=== PATIENT | female | born 1960 | race Caucasian/White ===

== ENCOUNTER 2017-07-10 06:22 | Day surgery (SDC) | payer MEDICARE, OTHER, SELFPAY ==
[2017-07-05 13:59] VITALS: BMI 45.5
--- NOTE | 2017-07-10 08:09 | P.PCN_ITS ---
- Procedure: Date: 07/10/17 Patient Date of :: 1960 Procedure Performed:: Colonoscopy with cold snare polypectomy Equipment: Olympus 180 variable stiffness pediatric colonoscope Indications:: Mrs. Painter is a 57-year-old female who is here for follow-up screening/ surveillance colonoscopy. Her last colonoscopy in June 2015 revealed 5 polyps which were removed. She reports no abdominal pain, weight loss, change in her bowel habits or rectal bleeding. She reports no family history of colon cancer. Performing Provider:: Jamie Kelly II, MD Referring Provider:: Ricky Jones MD Sedation:: MAC sedation Procedure:: Colonoscopy with cold snare polypectomy Findings:: Findings: On digital rectal examination there was normal rectal tone. There were no external hemorrhoids. The colonoscope was introduced through the anal canal to the rectum and advanced to the cecum. The ileocecal valve and appendiceal orifice were identified. The scope was advanced a short distance into the ileum which appeared grossly normal. The scope was then withdrawn into the colon. The cecum, ascending and transverse colon and mucosa were grossly normal. There were 3 diminutive polyps in the transverse ?2 and descending ?1 that ranged in size from 4-6 mm and were removed via cold snare polypectomy. There were scattered diverticuli throughout the descending and sigmoid colon ( LEFT colon). The rectum itself was normal. Upon retroflexion within the rectum there were grade 1 internal hemorrhoids. Impression: 1. Diminutive colonic polyps ?3 2. Left-sided diverticulosis 3. Grade 1 internal hemorrhoids Recommendations:: Plan: I will follow up the polyp pathology and recommend repeat colonoscopy again in 5 -10 years based upon the polyp histology. I would encourage fiber supplementation on a long-term daily maintenance basis. Complications:: None Estimated blood obtained (mL): 0
[2017-07-10 08:38] VITALS: O2SAT 95
[2017-07-10 08:50] LABS: POC Glucose,Bedside 411 mg/dL
[2017-07-10 08:50] LABS: POC Glucose,Bedside 400 mg/dL
[2017-07-10 08:50] LABS: POC Glucose,Bedside 402 mg/dL
[2017-07-10 09:00] VITALS: BP 114/74; PULSE 92; RESP 20; TEMP 36.6; O2SAT 94
[2017-07-10 09:10] VITALS: BP 119/59; PULSE 96; RESP 20; TEMP 36.6; O2SAT 93
[2017-07-10 09:20] VITALS: BP 135/73; PULSE 94; RESP 20; TEMP 36.6; O2SAT 92
[2017-07-10 09:30] VITALS: BP 144/84; PULSE 97; RESP 20; TEMP 36.6; O2SAT 96
[2017-07-10 09:55] VITALS: BP 151/85; PULSE 94; RESP 20; TEMP 36.6; O2SAT 94
== END 2017-07-10 09:55 | disposition home or self-care (01) ==
LOC: OUTP 06:25
PROVIDERS: Family Provider Family Medicine; PCP Family Medicine; Visit Provider Internal Medicine Gastroenterology
PROC: 0DJD8ZZ Inspection of Lower Intestinal Tract, Via Natural or Artificial Opening Endoscopic (ICD-10-PCS; CPT 45378; principal; 2017-07-10 08:00)
DX: Z12.11 Encounter for screening for malignant neoplasm of colon (principal); K63.5 Polyp of colon; K57.30 Diverticulosis of large intestine without perforation or abscess without bleeding; K64.0 First degree hemorrhoids; Z86.010 Personal history of colon polyps; E11.9 Type 2 diabetes mellitus without complications; Z79.4 Long term (current) use of insulin
CPT/HCPCS: 45380; 82962; 88305

== ENCOUNTER → 2017-07-14 14:50 | Outpatient (CLI) | payer MEDICARE, OTHER, SELFPAY | PROVIDERS: PCP Family Medicine; Visit Provider Family Medicine | DX: R00.0 Tachycardia, unspecified (principal) | CPT/HCPCS: 93005 ==

== ENCOUNTER → 2018-03-29 11:03 | Outpatient (CLI) | payer MEDICARE, OTHER, SELFPAY ==
--- NOTE | 2018-03-29 11:10 | XR_ITS ---
XR knee RT 3V HISTORY: ITS.REASON: ACUTE RT KNEE PAIN ORDERING PHYSICIAN: Ricky Jones MD PATIENT AGE: 58 years COMPARISON: None FINDINGS: There are mild osteoarthritic changes of the lateral compartment and patellofemoral joint and moderate osteoarthritic changes of the medial compartment. No fracture or dislocation evident. There is decrease in the joint space medially with osteophyte formation along with osteophyte formation laterally and at the patellofemoral joint. No fracture or dislocation. No lytic or blastic change. There is increased soft tissue density in the suprapatellar region suggesting knee joint effusion. IMPRESSION: Moderate osteoarthritis of the right knee with knee joint effusion
== END ==
PROVIDERS: PCP Family Medicine; Visit Provider Family Medicine
DX: M25.561 Pain in right knee (principal)
CPT/HCPCS: 73562

== ENCOUNTER → 2018-06-04 12:02 | Outpatient (CLI) | payer MEDICARE, OTHER, SELFPAY ==
--- NOTE | 2018-06-04 12:07 | XR_ITS ---
XR knee LT 3V HISTORY: ITS.REASON: LEFT KNEE PAIN ORDERING PHYSICIAN: Ricky Jones MD PATIENT AGE: 58 years COMPARISON: None FINDINGS: There are mild tricompartmental osteoarthritic changes with minimal osteophytes at the medial, lateral joint, and patellofemoral joint. No fracture or dislocation. There is some increased soft tissue density in the suprapatellar region suggesting a joint effusion. IMPRESSION: Mild osteoarthritis with knee joint effusion
== END ==
PROVIDERS: PCP Family Medicine; Visit Provider Family Medicine
DX: M25.562 Pain in left knee (principal)
CPT/HCPCS: 73562

== ENCOUNTER 2018-10-09 10:26 | Inpatient (IN) ==
[2018-10-09 11:04] LABS: Basophils # 0.1 K/mm3 (0-0.2); Basophils % 0.4 % (0.1-2.0); Hematocrit 55.8 % (37.0-47.0); Hemoglobin 17.3 g/dL (12.2-16.2); Lymphocytes # 1.2 K/mm3 (0.7-4.5); Lymphocytes % 6.7 % (10-50); Mean Corpuscular Hemoglobin 29.6 pg (27.0-31.2); Mean Corpuscular Volume 95.6 fl (81-99); Mean Platelet Volume 9.3 fl (7.4-10.4); Monocytes # 0.9 K/mm3 (0.1-1.0); Neutrophils # 16.2 K/mm3 (1.8-7.8); Neutrophils % 87.8 % (37.0-80.0); Platelet Count 326 K/mm3 (142-424); Red Blood Count 5.84 M/mm3 (4.20-5.40); Red Cell Distribution Width 14.2 % (11.5-17.5); White Blood Count 18.5 K/mm3 (4.8-10.8)
--- NOTE | 2018-10-09 11:08 | Emergency Department Note ---
ED Disposition Clinical Impression: DKA (diabetic ketoacidoses) Qualifiers: Diabetes mellitus type: other specified (including VALORIE) Diabetes mellitus complication detail: without coma Qualified Code(s): E13.10 - Other specified diabetes mellitus with ketoacidosis without coma Diarrhea Qualifiers: Diarrhea type: unspecified type Qualified Code(s): R19.7 - Diarrhea, unspecified Vomiting Qualifiers: Vomiting type: unspecified Vomiting Intractability: unspecified Nausea presence: with nausea Qualified Code(s): R11.2 - Nausea with vomiting, unspecified Disposition: Admitted As Inpatient Condition on Discharge: Serious Referrals: Ricky Jones MD [Primary Care Provider] - - Critical Care Critical Care Time: Yes Attestation: On 10/09/18, the high probability of a clinically significant, sudden or life threatening deterioration of the following system(s) required my full and direct attention, intervention and personal management. The time I documented below is in addition to time spent performing reported procedures but includes the following listed in this critical care notation. Total Critical Care Time: 40 Vital system(s) involved:: Metabolic Failure My critical care processes included: Assessment & monitoring of V/S, Initial and Re-exams, Data Review/Interpretation, Coordinating Care, Medication Orders and management, Documentation Medical Decision Making - Gunner Inquiry Pt receiving controlled substance: No Vital Signs: 10/09/18 10:26 10/09/18 11:29 10/09/18 11:43 Temperature 98.0 F Temperature Source Rectal Pulse Rate [Right Radial] 124 H 126 H 122 H Respiratory Rate 30 H 30 H Blood Pressure [Right Arm] 150/68 H 155/53 H 155/53 H Blood Pressure Mean [Right Arm] 95 87 87 Blood Pressure Source [Right Arm] Automatic Cuff Automatic Cuff Automatic Cuff Blood Pressure Position [Right Arm] Supine Sitting Sitting 02 Sat by Pulse Oximetry 99 99 97 Oxygen Delivery Method Room Air Room Air Room Air 10/09/18 12:01 Temperature Temperature Source Pulse Rate [Right Radial] 124 H Respiratory Rate Blood Pressure [Right Arm] 151/64 H Blood Pressure Mean [Right Arm] 93 Blood Pressure Source [Right Arm] Automatic Cuff Blood Pressure Position [Right Arm] Sitting 02 Sat by Pulse Oximetry 98 Oxygen Delivery Method Room Air - Lab Data Lab Results 10/09/18 10:45: WBC 18.5 H, RBC 5.84 H, Hgb 17.3 H, Hct 55.8 H, MCV 95.6, MCH 29.6, MCHC 31.0 L, RDW 14.2, Plt Count 326, MPV 9.3, Neut % (Auto) 87.8 H, Lymph % (Auto) 6.7 L, [place] % (Auto) 5.0, Eos % (Auto) 0.0 L, Baso % (Auto) 0.4, Neut # (Auto) 16.2 H, Lymph # (Auto) 1.2, [place]clain # (Auto) 0.9, Eos # (Auto) 0.0, Baso # (Auto) 0.1, Total Counted 100, Neutrophils % (Manual) 85 H, Band Neutrophils % 3.0, Lymphocytes % (Manual) 8 L, Monocytes % (Manual) 4, Platelet Estimate Normal, Hypochromasia 1+ 10/09/18 10:45: Sodium 128 L, Potassium 5.0, Chloride 93 L, Carbon Dioxide 4 L*, Anion Gap 36.0 H, BUN 29 H, Creatinine 1.73 H, Estimated Creat Clear 33, Estimated GFR 30 L, Est GFR ( Amer) 36 L, Glucose 716 H*, Calcium 9.2, Total Bilirubin 0.5, AST 18, ALT 25, Alkaline Phosphatase 137 H, Total Protein 8.4 H, Albumin 3.0 L, Globulin 5.4 H, Albumin/Globulin Ratio 0.6 L, Acetone Level Large 10/09/18 10:45: Troponin I < 0.02 10/09/18 10:45: Phosphorus 5.4 H, Magnesium 2.1 10/09/18 10:56: Specimen Source L radial, O2 % Room air, ABG pH 6.92 L*, ABG pCO2 14.3 L, ABG pO2 126.1 H, ABG HCO3 2.9 L, ABG Total CO2 3.3 L, ABG O2 Saturation 98, ABG Base Excess -29.7 L, Shayne Test Acceptable 10/09/18 11:28: Urine Color Yellow, Urine Appearance Clear, Urine pH 5.5, Ur Specific [place] 1.025, Urine Protein 2+, Urine Glucose (UA) 3+, Urine Ketones 3+, Urine Blood 2+, Urine Nitrate Negative, Urine Bilirubin Negative, Urine Urobilinogen 0.2, Ur Leukocyte Esterase Negative, Urine RBC 3-5, Urine WBC Occasional, Ur Squamous Epith Cells Occasional, Urine Bacteria 2+, Fine Granular Casts Occasional Result diagrams: 10/09/18 10:45 10/09/18 10:45 Orders (Tests/Meds): ED MEDICATIONS Generic Name Dose Route Start Last Admin Trade Name Freq PRN Reason Stop Dose Admin Sodium Chloride 1,000 mls @ 999 mls/hr 10/09/18 11:45 10/09/18 11:32 Sod Chlor 0.9% 1000ml Bag IV 10/09/18 12:45 999 mls/hr .Q1H1M JEFFERSON Administration Sodium Chloride 1,000 mls @ 999 mls/hr 10/09/18 11:45 10/09/18 11:46 Sod Chlor 0.9% 1000ml Bag IV 10/09/18 12:45 999 mls/hr .Q1H1M JEFFERSON Administration Insulin Human Regular 100 unit 101 mls @ 11.91 mls/hr 10/09/18 12:00 10/09/18 12:05 / Sodium Chloride IV 11/08/18 11:59 11.91 mls/hr .Q8H29M JEFFERSON Administration Protocol 0.1 UNITS/KG/HR Sodium Chloride 10 ml 10/09/18 10:34 Saline Flush 10ml Syringe IV 11/08/18 10:33 NEEDED PRN Maintain IV Site ORDERS Category Date Time Status XR chest portable Stat Exams 10/09/18 11:18 Taken Lactic Acid Stat Lab 10/09/18 11:09 Ordered Blood Culture Stat Micro 10/09/18 11:09 Ordered Urine Culture Stat Micro 10/09/18 11:28 Received - Radiology Data #1 Image(s): Chest Image Reviewed: Yes I reviewed the patient's radiology image Preliminary Findings: Normal/NAD - CT Data CT Scan: Head Time Received: 11:[address] Reviewed: Yes: I discussed the CT results w/the radiologist Preliminary Findings: Normal/NAD Findings Narrative: CT scan interpreted by [facility] radiologist. Normal. - ECG Data Tracing #1 EKG interpreted by Mitesh Salgado MD: Rhythm: sinus tachycardia Rate: [address] [place]: Left Ectopy: none Conduction: normal ST Segment Changes: Nonspecific T Wave Changes: Nonspecific Q Waves: none Poor R wave progression - Physician Consults Physician Consulted: Robert Time: 12:10 Reason -: Admission Comment/Response: Agrees to admit the patient to the hospital. We discussed the patient's clinical information, including history, exam, laboratory and radiology results and ED course. Per hospital procedure, I will write temporary bridge inpatient orders on the patient. Specific orders requested by the admitting physician: DKA protocol. Requests Flagyl empirically for diarrhea. Diarrhea panel. General Adult HPI - General Stated complaint: weakness, high sugar Time Seen by Provider: 10/09/18 11:05 - History of Present Illness HPI narrative: History obtained from patient and . She has been sick since Monday 3 days ago. She has generalized weakness which has been increasing to the point where she could not walk today and fell a couple of times. Slight diarrhea. Vomited today. No fever documented, is unaware of any fever. Denies u rinary symptoms. Denies URI symptoms. states she has had DKA a couple of times in the past. Recent antibiotics for incision and drainage of chest. - Related Data Home Medications Medication Instructions Recorded Confirmed Anastrozole [Arimidex] 1 mg PO DAILY 07/05/17 09/18/18 Ascorbic Acid [Vitamin C] 1,000 mg PO DAILY 07/05/17 09/18/18 Aspirin [Aspirin 325mg Tab] 325 mg PO DAILY 07/05/17 09/18/18 Atorvastatin Calcium [Atorvastatin 20 mg PO DAILY 07/05/17 09/18/18 20mg Tab] Calcium Carb/Vitamin D3/Vit K1 1 each PO DAILY 07/05/17 09/18/18 [Calcium + D Soft Chewable Tab] Duloxetine HCl [Cymbalta 30mg 90 mg PO DAILY 07/05/17 09/18/18 capsule] Fenofibric Acid [Fibricor] 135 mg PO DAILY 07/05/17 09/18/18 Fluoxetine HCl [Sarafem] 20 mg PO DAILY 07/05/17 09/18/18 Gabapentin [Gabapentin 300mg Cap] 300 mg PO TID 07/05/17 09/18/18 Insulin Aspart [Novolog Flexpen] 50 unit SQ DIRECTED MDD 50U 07/05/17 09/18/18 AM/40 U LUNCH/50 U DINNER Insulin Glargine,Hum.rec.anlog 100 unit SQ BID 07/05/17 09/18/18 [Lantus Insulin 100units/mL 10mL vial] L.acidoph,Paracasei, B.lactis 1 each PO DAILY 07/05/17 09/18/18 [Probiotic] Lisinopril [Lisinopril 20mg Tab] 20 mg PO DAILY 07/05/17 09/18/18 Meloxicam [Mobic 7.5mg Tab] 7.5 mg PO DAILY 07/05/17 09/18/18 Metformin HCl [Metformin 500mg 1,000 mg PO BID 07/05/17 09/18/18 Tablet] Metoprolol Succinate [Toprol XL 50 mg PO DAILY 07/05/17 09/18/18 50mg Tablet] Multivitamin [Multivitamins] 1 each PO DAILY 07/05/17 09/18/18 Vitamin B Complex 1 each PO DAILY 07/05/17 09/18/18 Fluticasone Propionate [Flonase 2 spr NS DAILY 08/20/18 09/18/18 50mcg nasal spray 16gm] Sitagliptin Phosphate [Januvia 50 mg PO DAILY 08/20/18 09/18/18 50mg Tablet] Sulfamethoxazole/Trimethoprim 1 each PO BID 08/20/18 09/18/18 [Bactrim DS tablet] Previous Rx's Medication Instructions Recorded Benzonatate [Tessalon Perle 100mg 100 mg PO TID PRN #30 cap 06/20/18 Cap] Ondansetron [Zofran 4mg ODT] 4 mg PO NEEDED PRN #20 06/20/18 tab.rapdis Allergies Allergy/AdvReac Type Severity Reaction Status Date / Time No Known Allergies Allergy Verified 09/18/18 09:21 [facility] History - Hepatitis A Screen Attestation statement:: This patient has been screened for Hepatitis A risk factors. I have reviewed the patient's past medical history: Yes Medical History: Reports:: Cancer, Diabetes Mellitus Type 2, Hyperlipidemia, Hypertension Denies:: Diabetes Mellitus Type 1, Internal Pacemaker, Lung Disease, Seizures Laterality Cases: Left: Carpal Tunnel Release, Other, Bilateral: Tonsillectomy Other Surgeries: Yes: Cholecystectomy, Colonoscopy, Other (Left lumpectomy). No: Pacemaker - Social History Smoking Status: Never smoker Alcohol Intake: never Substance Use Type: denies use Occupational Status: disabled Family Hx:: Hypertension, Diabetes, Coronary Artery Disease, Asthma ROS Obtained: Yes All systems reviewed & no additional complaints - Constitutional Constitutional: Denies fever(s), Reports malaise, Reports weakness - Cardiovascular Cardiovascular: Denies chest pain - Respiratory Respiratory: No cough, No dyspnea - Gastrointestinal Gastrointestingal: Reports: diarrhea, vomiting. Denies: abdominal pain - Genitourinary Female Genitourinary: Denies difficulty voiding Physical Exam - General General appearance: other Comment: Tachypneic, appears ill and dehydrated with dry lips and mucous membranes, tachypneic with ketone odor on breath. Clinically consistent with DKA. - Head Head exam: atraumatic, normocephalic - ENT ENT exam: Present: mucous membranes dry - Neck Neck exam: Present: normal inspection, trachea midline - Chest Chest inspection: Present: normal inspection, symmetric chest wall rise - Respiratory Respiratory exam: Present: normal lung sounds bilaterally, other (Tachypnea) - Cardiovascular Cardiovascular exam: Present: tachycardia, normal heart sounds - Abdominal Exam Abdominal exam: Present: soft. Absent: distention, tenderness, guarding - Extremities Exam Extremities exam: Present: normal inspection - Neurological Exam Neurological exam: Present: other (Appears very fatigued. Speech is soft but appropriate.) - Skin Skin exam: Present: warm, dry
[2018-10-09 11:17] LABS: Hypochromasia 1+; Lymphocytes % 8 % (10-50); Monocytes % 4 % (2-9); Neutrophils % 85 % (42-76); Total Cells Counted 100
[2018-10-09 11:17] LABS: ABG Base Excess -29.7 mmol/L (-2.4-2.3); ABG HCO3 2.9 mmhg (22.0-26.0); ABG Oxygen Saturation 98 % (90-100); ABG PO2 126.1 mmhg (80-100); ABG TCO2 3.3 mmhg (23-27)
[2018-10-09 11:19] LABS: Allen's Test ACCEPTABLE; Oxygen ROOM AIR %
[2018-10-09 11:20] LABS: ABG PCO2 14.3 mmhg (35.0-45.0); ABG PH 6.92 mmol/L (7.35-7.45)
[2018-10-09 11:22] LABS: Alanine Aminotransferase 25 U/L (12-78); Albumin/Globulin Ratio 0.6 (1.1-1.8); Alkaline Phosphatase 137 U/L (46-116); Aspartate Amino Transferase 18 U/L (15-37); Bilirubin,Total 0.5 mg/dL (0.2-1.0); Blood Urea Nitrogen 29 mg/dL (7-18); Calcium 9.2 mg/dL (8.5-10.1); Chloride 93 mmol/L (98-107); Globulin 5.4 gm/dl (1.3-3.2); Sodium 128 mmol/L (136-145); Total Protein,Serum 8.4 gm/dL (6.4-8.2)
[2018-10-09 11:24] LABS: Acetone, Serum (Rapid) Large (None Detect)
[2018-10-09 11:27] LABS: Carbon Dioxide 4 mmol/L (21.0-32.0); Glucose 716 mg/dL (74-106)
[2018-10-09 11:35] LABS: Microscopic, Urine URINE MICROSCOPIC (MICROSCOPIC)
[2018-10-09 11:46] LABS: Appearance,Urine CLEAR (Clear); Blood, Urine 2+ (Negative); Color,Urine YELLOW (Yellow); Glucose,Urine (UA) 3+ (Negative); Ketones,Urine 3+ (Negative); Leukocyte Esterase,Urine Negative (Negative); PH,Urine 5.5 (5.0-8.5); Protein,Urine 2+ (Negative); Specific Gravity, Urine 1.025 (1.005-1.030); Urobilinogen,Urine 0.2 EU/dl (0.2)
[2018-10-09 11:50] LABS: Bilirubin,Urine Negative (Negative)
[2018-10-09 12:05] LABS: Bacteria,Urine 2+ /lpf; Fine Granular Casts,Urine Occasional #/lpf (0); Squamous Epithelial Cell,Urine Occasional #/hpf (0-5); WBC,Urine Occasional #/hpf (0-3)
[2018-10-09 12:13] LABS: Phosphorous 5.4 mg/dL (2.4-4.9)
--- NOTE | 2018-10-09 12:47 | History & Physical Report ---
*Admission Date: 10/09/18 <Katlyn Nieves - 10/09/18 13:38> *Chief complaint: Nausea, vomiting, and extreme weakness. <Katlyn Nieves 10/09/18 13:38> *History of present illness: Ms. Painter is a 58-year-old female with a history of type 2 diabetes mellitus, recent infected sebaceous cyst, hypertension, and breast cancer who was brought to [facility] emergency room via EMS. is the main historian and states she has been sick for 4 days with nausea and vomiting. She has had some diarrhea but this has ceased. She has been drinking fluids well but has not eaten for 3 days. Also she has not taken any of her medicines or done fingerstick blood sugars for 3 days. Patient denies chest pain, abdominal pain, and fever. She states she is somewhat short of breath but this has improved. She has been very weak and unable to walk and has had 3-4 falls in the last 24-48 hrs. She denies cough and chest congestion. At the time of this exam patient remains in the emergency room and awaits bed assignment on the medical floor. is with her. Her nurse states that she has improved and is now able to talk and answer questions. With evaluation in the emergency room she was found to be in DKA. She was given IV fluid boluses and started on an insulin drip. She has had about a liter of urinary output thus far. She feels that her breathing has improved. She denies abdominal pain and nausea at present. <Nieves,Katlyn 10/09/18 13:38> [facility] History Medical History: Reports:: Cancer, Depression, Diabetes Mellitus Type 2, Hyperlipidemia, Hypertension, Palpitations, Peripheral Vascular Disease, Renal Insufficiency, Urinary Tract Infection Denies:: Diabetes Mellitus Type 1, Internal Pacemaker, Lung Disease, Seizures <NievesKatlyn 10/09/18 13:38> Comment:: Venous stasis ulcer; carpal tunnel syndrome; previous DKA and [id number] E. coli UTI; extensive cellulitis of the left foot treated by ID at [facility] 2013 <EzequielKatlyn 10/09/18 13:38> Laterality Cases: Left: Carpal Tunnel Release, Lumpectomy (Followed by chemotherapy and radiation), Other, Bilateral: Breast Biopsy, Tonsillectomy <EzequielKatlyn 10/09/18 13:38> Other Surgeries: Yes: Cholecystectomy, Colonoscopy, Other (Left lumpectomy). No: Pacemaker <NievesKatlyn 10/09/18 13:38> - *Social History Smoking Status: Never smoker <NievesKatlyn - 10/09/18 13:38> Alcohol Intake: never <NievesKatlyn 10/09/18 13:38> Substance Use Type: denies use [facility] 13:38> *Occupational Status:: disabled <NievesKatlyn - 10/09/18 13:38> Family Hx:: Hypertension, Diabetes, Coronary Artery Disease, Asthma <[facility] 10/09/18 13:38> Review of Systems - Constitutional Reports fatigue, Reports lack of energy, Denies fever(s) <NievesKatlyn 10/09/18 13:38> - ENT Denies ear pain, Denies sore throat [facility] 13:38> - *Cardiovascular Reports fast heart rate, Denies chest pain, Denies shortness of breath <NievesKatlyn 10/09/18 13:38> - *Respiratory Reports shortness of breath, Denies chest congestion, Denies cough, Denies coughing up blood <NievesKatlyn 10/09/18 13:38> - *Gastrointestinal Reports loose stools, Reports vomiting, Denies vomiting blood <NievesKatlyn 10/09/18 13:38> - *Genitourinary Denies difficulty urinating <NievesKatlyn 10/09/18 13:38> - *Musculoskeletal Reports muscle weakness <NievesKatlyn 10/09/18 13:38> Comments: She has had several falls in the last 48 hours <Nieves,Katlyn 10/09/18 13:38> - Integumentary/Breasts Reports other <NievesKatlyn 10/09/18 13:38> - *Neurologic Reports weakness <NievesKatlyn 10/09/18 13:38> Meds Home Medications Medication Instructions Recorded Confirmed Type Anastrozole [Arimidex] 1 mg PO DAILY 07/05/17 10/09/18 History Ascorbic Acid [Vitamin C] 1,000 mg PO DAILY 07/05/17 10/09/18 History Atorvastatin Calcium [Atorvastatin 20 mg PO DAILY 07/05/17 10/09/18 History 20mg Tab] Fluoxetine HCl [Sarafem] 20 mg PO DAILY 07/05/17 10/09/18 History Gabapentin [Gabapentin 300mg Cap] 300 mg PO TID 07/05/17 10/09/18 History Insulin Aspart [Novolog Flexpen] 50 unit SQ DIRECTED 07/05/17 10/09/18 History Insulin Glargine,Hum.rec.anlog 100 unit SQ HS 07/05/17 10/09/18 History [Lantus Insulin 100units/mL 10mL vial] Lisinopril [Lisinopril 20mg Tab] 20 mg PO DAILY 07/05/17 10/09/18 History Meloxicam [Mobic 7.5mg Tab] 7.5 mg PO DAILY 07/05/17 10/09/18 History Metformin HCl [Metformin 500mg 1,000 mg PO BID 07/05/17 10/09/18 History Tablet] Metoprolol Succinate [Toprol XL 50 mg PO DAILY 07/05/17 10/09/18 History 50mg Tablet] Multivitamin [Multivitamins] 1 each PO DAILY 07/05/17 10/09/18 History Vitamin B Complex 1 each PO DAILY 07/05/17 10/09/18 History ARIPiprazole [Abilify 2mg Tablet] 2 mg PO DAILY 10/09/18 10/09/18 History Aspirin [Aspirin 325mg Tab] 325 mg PO DAILY 10/09/18 10/09/18 History Biotin 5 mg PO TID 10/09/18 10/09/18 History Calcium Carbonate/Vitamin D3 1 each PO BID 10/09/18 10/09/18 History [Calcium 600-Vit D3 800 Tablet] Cholecalciferol (Vitamin D3) 2,000 unit PO DAILY 10/09/18 10/09/18 History [Vitamin D3 1,000 Unit Cap] Cinnamon Bark/Chromium Picolin 2 cap PO BID 10/09/18 10/09/18 History [Cinnamon Plus Chromium Capsule] Duloxetine HCl 60 mg PO DAILY 10/09/18 10/09/18 History Fenofibric Acid (Choline) 135 mg PO DAILY 10/09/18 10/09/18 History [Fenofibric Acid] Gluc Gallegos/Chondro Gallegos A/Vit C/Mn 2 each PO DAILY 10/09/18 10/09/18 History [Glucosamine Chondroitin Tab] Krill Oil/Clarence-3/Dha/Epa [Clarence-3 1 each PO DAILY 10/09/18 10/09/18 History Krill Oil Softgel] L.acidoph,Paracasei, B.lactis 1 each PO DAILY 10/09/18 10/09/18 History [Probiotic] Sitagliptin Phosphate [Januvia 100 mg PO DAILY 10/09/18 10/09/18 History 100mg tablet] Ubidecarenone [Coq-10] 100 mg PO DAILY 10/09/18 10/09/18 History <Ricky Jones - 10/09/18 15:33> Allergies Allergy/AdvReac Type Severity Reaction Status Date / Time No Known Allergies Allergy Verified 09/18/18 09:21 <Winn,Ricky - 10/09/18 15:33> Exam Vital signs and Labs for Last 24 Hours: Temp Pulse Resp BP Pulse Ox 98.2 F 103 H 20 143/68 H 99 10/09/18 14:40 10/09/18 14:40 10/09/18 14:40 10/09/18 14:40 10/09/18 14:40 Laboratory Results - last 24 hr 10/09/18 10:45: WBC 18.5 H, RBC 5.84 H, Hgb 17.3 H, Hct 55.8 H, MCV 95.6, MCH 29.6, MCHC 31.0 L, RDW 14.2, Plt Count 326, MPV 9.3, Neut % (Auto) 87.8 H, Lymph % (Auto) 6.7 L, [place] % (Auto) 5.0, Eos % (Auto) 0.0 L, Baso % (Auto) 0.4, Neut # (Auto) 16.2 H, Lymph # (Auto) 1.2, [place] # (Auto) 0.9, Eos # (Auto) 0.0, Baso # (Auto) 0.1, Total Counted 100, Neutrophils % (Manual) 85 H, Band Neutrophils % 3.0, Lymphocytes % (Manual) 8 L, Monocytes % (Manual) 4, Platelet Estimate Normal, Hypochromasia 1+ 10/09/18 10:45: Sodium 128 L, Potassium 5.0, Chloride 93 L, Carbon Dioxide 4 L*, Anion Gap 36.0 H, BUN 29 H, Creatinine 1.73 H, Estimated Creat Clear 33, Estimated GFR 30 L, Est GFR ( Amer) 36 L, Glucose 716 H*, Calcium 9.2, Total Bilirubin 0.5, AST 18, ALT 25, Alkaline Phosphatase 137 H, Total Protein 8.4 H, Albumin 3.0 L, Globulin 5.4 H, Albumin/Globulin Ratio 0.6 L, Acetone Level Large 10/09/18 10:45: Troponin I < 0.02 10/09/18 10:45: Phosphorus 5.4 H, Magnesium 2.1 10/09/18 10:56: Specimen Source L radial, O2 % Room air, ABG pH 6.92 L*, ABG pCO2 14.3 L, ABG pO2 126.1 H, ABG HCO3 2.9 L, ABG Total CO2 3.3 L, ABG O2 Saturation 98, ABG Base Excess -29.7 L, Shayne Test Acceptable 10/09/18 11:28: Urine Color Yellow, Urine Appearance Clear, Urine pH 5.5, Ur Specific [place] 1.025, Urine Protein 2+, Urine Glucose (UA) 3+, Urine Ketones 3+, Urine Blood 2+, Urine Nitrate Negative, Urine Bilirubin Negative, Urine Urobilinogen 0.2, Ur Leukocyte Esterase Negative, Urine RBC 3-5, Urine WBC Occasional, Ur Squamous Epith Cells Occasional, Urine Bacteria 2+, Fine Granular Casts Occasional 10/09/18 11:55: Lactate 2.8 H 10/09/18 13:25: POC Glucose > 600 H* 10/09/18 14:12: Sodium 134 L, Potassium 5.9 H, Chloride 99, Carbon Dioxide 2 L* D, Anion Gap 38.9 H, BUN 35 H, Creatinine 1.35 H D, Estimated Creat Clear 73, Estimated GFR 40 L, Est GFR ( Amer) 49 L D, Glucose 691 H*, Calcium 8.9 <Winn,Ricky - 10/09/18 15:33> Temp Pulse Resp BP Pulse Ox 98.0 F 124 H 30 H 151/64 H 98 10/09/18 10:26 10/09/18 12:01 10/09/18 11:29 10/09/18 12:01 10/09/18 12:01 Laboratory Results - last 24 hr 10/09/18 10:45: WBC 18.5 H, RBC 5.84 H, Hgb 17.3 H, Hct 55.8 H, MCV 95.6, MCH 29.6, MCHC 31.0 L, RDW 14.2, Plt Count 326, MPV 9.3, Neut % (Auto) 87.8 H, Lymph % (Auto) 6.7 L, [place] % (Auto) 5.0, Eos % (Auto) 0.0 L, Baso % (Auto) 0.4, Neut # (Auto) 16.2 H, Lymph # (Auto) 1.2, [place] # (Auto) 0.9, Eos # (Auto) 0.0, Baso # (Auto) 0.1, Total Counted 100, Neutrophils % (Manual) 85 H, Band Neutrophils % 3.0, Lymphocytes % (Manual) 8 L, Monocytes % (Manual) 4, Platelet Estimate Normal, Hypochromasia 1+ 10/09/18 10:45: Sodium 128 L, Potassium 5.0, Chloride 93 L, Carbon Dioxide 4 L*, Anion Gap 36.0 H, BUN 29 H, Creatinine 1.73 H, Estimated Creat Clear 33, Estimated GFR 30 L, Est GFR ( Amer) 36 L, Glucose 716 H*, Calcium 9.2, Total Bilirubin 0.5, AST 18, ALT 25, Alkaline Phosphatase 137 H, Total Protein 8.4 H, Albumin 3.0 L, Globulin 5.4 H, Albumin/Globulin Ratio 0.6 L, Acetone Level Large 10/09/18 10:45: Troponin I < 0.02 10/09/18 10:45: Phosphorus 5.4 H, Magnesium 2.1 10/09/18 10:56: Specimen Source L radial, O2 % Room air, ABG pH 6.92 L*, ABG pCO2 14.3 L, ABG pO2 126.1 H, ABG HCO3 2.9 L, ABG Total CO2 3.3 L, ABG O2 Saturation 98, ABG Base Excess -29.7 L, Shayne Test Acceptable 10/09/18 11:28: Urine Color Yellow, Urine Appearance Clear, Urine pH 5.5, Ur Specific [place] 1.025, Urine Protein 2+, Urine Glucose (UA) 3+, Urine Ketones 3+, Urine Blood 2+, Urine Nitrate Negative, Urine Bilirubin Negative, Urine Urobilinogen 0.2, Ur Leukocyte Esterase Negative, Urine RBC 3-5, Urine WBC Occasional, Ur Squamous Epith Cells Occasional, Urine Bacteria 2+, Fine Granular Casts Occasional <Katlyn Nieves 10/09/18 13:38> I & O for Last 24 hours: Intake & Output 10/06/18 10/07/18 10/08/18 10/09/18 23:59 23:59 23:59 23:59 Intake Total 1999 / 1999 Output Total 850 / 850 Balance 1150 / 1150 Weight 228 lb 8 oz <Ricky Jones - 10/09/18 15:33> Intake & Output 10/07/18 10/08/18 10/09/18 10/10/18 11:59 11:59 11:59 11:59 Weight 260 lb <NievesKatlyn 10/09/18 13:38> Radiology Reports for the Last 24 Hours: 10/09/2018 CT of the head IMPRESSION: No acute intracranial findings 10/09/2018 chest x-ray IMPRESSION: No change with no acute finding <NievesKatlyn 10/09/18 13:38> - Constitutional mild distress, morbidly obese <Nieves,Katlyn 10/09/18 13:38> Comments: Rapid respiratory effort; lying on stretcher in the emergency room; is able to answer questions and speech is clear; she assist with exam and is able to independently roll from side to side <NievesKatlyn 10/09/18 13:38> - *Routine HEENT Exam Eye: Present: PERRL. Absent: conjunctival icterus, scleral injection <NievesKatlyn 10/09/18 13:38> ENT: Present: mucous membranes dry, oropharynx clear <EzequielKatlyn 10/09/18 13:38> - *Routine Neck Exam Absent: lymphadenopathy, thyromegaly <EzequielKatlyn 10/09/18 13:38> - *Routine Respiratory Exam Present: CTA bilaterally (Anteriorly and posteriorly) <Katlyn Nieves 10/09/18 13:38> - *Routine Cardiovascular Exam Present: RRR (Sinus tach on monitor at 120-130) <Katlyn Nieves 10/09/18 13:38> - *Routine Abdominal Exam Present: soft, normoactive bowel sounds (Obese). Absent: tenderness <Katlyn Nieves 10/09/18 13:38> - *Routine Extremities Exam Absent: edema <Katlyn Nieves 10/09/18 13:38> Comments: Scarring noted on bilateral lower extremities with some discolorations <Katlyn Nieves 10/09/18 13:38> - *Routine Neurological Exam Present: alert (Responds readily; unable to determine orientation; moves all extremities) <Katlyn Nieves 10/09/18 13:38> Assessment and Plan (1) Dehydration Current visit: Yes Status: Acute Category: Medical Code(s): E86.0 - Dehydration (2) Hypertension Current visit: Yes Status: Acute Category: Medical Code(s): I10 - Essential (primary) hypertension (3) Hyperlipidemia Current visit: Yes Status: Acute Category: Medical Code(s): E78.5 - Hyperlipidemia, unspecified (4) DKA (diabetic ketoacidoses) Current visit: Yes Status: Acute Qualifiers: Diabetes mellitus type: other specified (including VALORIE) Diabetes mellitus complication detail: without coma Qualified Code(s): E13.10 - Other specified diabetes mellitus with ketoacidosis without coma Category: Medical Code(s): E13.10 - Other specified diabetes mellitus with ketoacidosis without coma (5) Diarrhea Current visit: Yes Status: Acute Qualifiers: Diarrhea type: unspecified type Qualified Code(s): R19.7 - Diarrhea, unspecified Category: Medical Code(s): R19.7 - Diarrhea, unspecified (6) Vomiting Current visit: Yes Status: Acute Qualifiers: Vomiting type: unspecified Vomiting Intractability: unspecified Nausea presence: with nausea Qualified Code(s): R11.2 - Nausea with vomiting, unspecified Category: Medical Code(s): R11.10 - Vomiting, unspecified (7) Depressive disorder Current visit: Yes Status: Acute Category: Medical Code(s): F32.9 - Major depressive disorder, single episode, unspecified (8) Diabetes type 2, uncontrolled Current visit: Yes Status: Acute Category: Medical Code(s): E11.65 - Type 2 diabetes mellitus with hyperglycemia (9) Long-term insulin use Current visit: Yes Status: Acute Category: Medical Code(s): Z79.4 - care home (current) use of insulin <Ricky Jones - 10/09/18 15:33> (1) Dehydration Current visit: Yes Status: Acute Category: Medical Code(s): E86.0 - Dehydration (2) Hypertension Current visit: Yes Status: Acute Category: Medical Code(s): I10 - Essential (primary) hypertension (3) Hyperlipidemia Current visit: Yes Status: Acute Category: Medical Code(s): E78.5 - Hyperlipidemia, unspecified (4) DKA (diabetic ketoacidoses) Current visit: Yes Status: Acute Qualifiers: Diabetes mellitus type: other specified (including VALORIE) Diabetes mellitus complication detail: without coma Qualified Code(s): E13.10 - Other specified diabetes mellitus with ketoacidosis without coma Category: Medical Code(s): E13.10 - Other specified diabetes mellitus with ketoacidosis without coma (5) Diarrhea Current visit: Yes Status: Acute Qualifiers: Diarrhea type: unspecified type Qualified Code(s): R19.7 - Diarrhea, unspecified Category: Medical Code(s): R19.7 - Diarrhea, unspecified (6) Vomiting Current visit: Yes Status: Acute Qualifiers: Vomiting type: unspecified Vomiting Intractability: unspecified Nausea presence: with nausea Qualified Code(s): R11.2 - Nausea with vomiting, unspecified Category: Medical Code(s): R11.10 - Vomiting, unspecified <Katlyn Nieves - 10/09/18 12:43> - Assessment and plan all Dx Assessment and Plan for all problems:: Saw patient agree with above note. <Ricky Jones - 10/09/18 15:33> Patient is being admitted to the medical floor with diabetic protocol. She is currently on insulin drip and is receiving IV fluids. They will continue to monitor her blood sugars, labs and urinary output. She has also been started on Flagyl <Katlyn Nieves - 10/09/18 13:38>
--- NOTE | 2018-10-09 14:48 | Pharmacy Consult Notes ---
[facility] Pharmacy VTE Monitoring - Patient Demographics Admission date: 10/09/18 Report Date: 10/09/18 Time: 14:47 Allergies/Adverse Reactions: Patient Allergies No Known Allergies Allergy (Verified 09/18/18 09:21) Height: 1.68 m Weight: 103.646 kg Patient Problems: Current Active Problems DKA (diabetic ketoacidoses) (Acute) Diarrhea (Acute) Vomiting (Acute) Dehydration (Acute) Hypertension (Acute) Hyperlipidemia (Acute) - VTE Risk Labs: VTE Related Lab Results Hgb 17.3 g/dL (12.2-16.2) H 10/09/18 10:45 Hct 55.8 % (37.0-47.0) H 10/09/18 10:45 Plt Count 326 K/mm3 (142-424) 10/09/18 10:45 BUN 29 mg/dL (7-18) H 10/09/18 10:45 Creatinine 1.73 mg/dL (0.55-1.02) H 10/09/18 10:45 Estimated Creat Clear 33 mL/min (50-200) 10/09/18 10:45 - Prophylaxis VTE Prophylaxis Ordered?: Yes Types of VTE Prophylaxis: TEDS Knee High Location of Applied Device: Bilateral Lower Extremeties - VTE Diagnosis Confirmed Treatment or plan recommended: Continue Current Treatment
[2018-10-09 14:53] LABS: Calcium 8.9 mg/dL (8.5-10.1); Potassium 5.9 mmoL/L (3.5-5.1)
[2018-10-09 14:56] LABS: Anion Gap 38.9 mEq/L (5-15)
[2018-10-09 17:40] LABS: Calcium 8.6 mg/dL (8.5-10.1); Potassium 3.9 mmoL/L (3.5-5.1)
[2018-10-09 17:52] LABS: Anion Gap 33.9 mEq/L (5-15)
--- NOTE | 2018-10-09 17:52 | Sepsis Event Note ---
Tissue Perfusion Evaluation Sepsis Re-Evaluation Performed: Yes Date Performed: 10/09/18 (Heart rate is 110-120; respiratory rate 30 and less labored. Good urinary output.) Time Performed: 17:52 Sepsis Follow-Up: Yes: Respiratory exam (Respiratory rate 30 and unlabored), Cardiovascular exam (Regular rate and rhythm; sinus tach on monitor), Peripheral pulse strength (Good), Peripheral pulse location, Skin exam (Warm and dry), Vital Signs Most Recent Vital Signs: Temperature 98.2 F 10/09/18 14:40 Temperature Source Oral 10/09/18 14:40 Pulse Rate 120 H 10/09/18 16:21 Respiratory Rate 22 10/09/18 16:00 Blood Pressure 123/49 L 10/09/18 16:00 Blood Pressure Mean 73 10/09/18 16:00 Blood Pressure Source Automatic Cuff 10/09/18 16:00 Blood Pressure Position Left Lateral 10/09/18 16:00 02 Sat by Pulse Oximetry 99 10/09/18 16:00 Oxygen Delivery Method 10/09/18 17:11
[2018-10-09 22:14] LABS: Anion Gap 27.5 mEq/L (5-15); Calcium 8.7 mg/dL (8.5-10.1); Potassium 3.5 mmoL/L (3.5-5.1)
[2018-10-10 02:08] LABS: Anion Gap 24.5 mEq/L (5-15); Calcium 8.8 mg/dL (8.5-10.1); Potassium 3.5 mmoL/L (3.5-5.1)
[2018-10-10 06:36] LABS: Anion Gap 20.4 mEq/L (5-15); Calcium 8.5 mg/dL (8.5-10.1); Potassium 3.4 mmoL/L (3.5-5.1)
--- NOTE | 2018-10-10 08:16 | Progress Note ---
<Katlyn Nieves - Last Filed: 10/10/18 08:12> Internal Medicine - PN: Subj *Date: 10/10/18 *Time: 08:13 Interval history: Nursing notes reviewed. Insulin drip being titrated to fingerstick blood sugars. Patient has been able to take p.o. liquids. No further vomiting or diarrhea. Continues with adequate urinary output per Robertson Patient states she does not feel well. She is slow to respond. She denies chest pain. She states her breathing is somewhat difficult. She just wants to sleep. Exam Vital signs and Labs for Last 24 Hours: Temp Pulse Resp BP Pulse Ox 98.2 F 107 H 18 161/76 H 98 10/10/18 04:00 10/10/18 06:00 10/10/18 06:00 10/10/18 06:00 10/10/18 06:00 Laboratory Results - last 24 hr 10/09/18 10:45: WBC 18.5 H, RBC 5.84 H, Hgb 17.3 H, Hct 55.8 H, MCV 95.6, MCH 29.6, MCHC 31.0 L, RDW 14.2, Plt Count 326, MPV 9.3, Neut % (Auto) 87.8 H, Lymph % (Auto) 6.7 L, [place] % (Auto) 5.0, Eos % (Auto) 0.0 L, Baso % (Auto) 0.4, Neut # (Auto) 16.2 H, Lymph # (Auto) 1.2, [place] # (Auto) 0.9, Eos # (Auto) 0.0, Baso # (Auto) 0.1, Total Counted 100, Neutrophils % (Manual) 85 H, Band Neutrophils % 3.0, Lymphocytes % (Manual) 8 L, Monocytes % (Manual) 4, Platelet Estimate Normal, Hypochromasia 1+ 10/09/18 10:45: Sodium 128 L, Potassium 5.0, Chloride 93 L, Carbon Dioxide 4 L*, Anion Gap 36.0 H, BUN 29 H, Creatinine 1.73 H, Estimated Creat Clear 33, Estim ated GFR 30 L, Est GFR ( Amer) 36 L, Glucose 716 H*, Calcium 9.2, Total Bilirubin 0.5, AST 18, ALT 25, Alkaline Phosphatase 137 H, Total Protein 8.4 H, Albumin 3.0 L, Globulin 5.4 H, Albumin/Globulin Ratio 0.6 L, Acetone Level Large 10/09/18 10:45: Troponin I < 0.02 10/09/18 10:45: Phosphorus 5.4 H, Magnesium 2.1 10/09/18 10:56: Specimen Source L radial, O2 % Room air, ABG pH 6.92 L*, ABG pCO2 14.3 L, ABG pO2 126.1 H, ABG HCO3 2.9 L, ABG Total CO2 3.3 L, ABG O2 Saturation 98, ABG Base Excess -29.7 L, Shayne Test Acceptable 10/09/18 11:28: Urine Color Yellow, Urine Appearance Clear, Urine pH 5.5, Ur Specific [place] 1.025, Urine Protein 2+, Urine Glucose (UA) 3+, Urine Ketones 3+, Urine Blood 2+, Urine Nitrate Negative, Urine Bilirubin Negative, Urine Urobilinogen 0.2, Ur Leukocyte Esterase Negative, Urine RBC 3-5, Urine WBC Occasional, Ur Squamous Epith Cells Occasional, Urine Bacteria 2+, Fine Granular Casts Occasional 10/09/18 11:55: Lactate 2.8 H 10/09/18 13:25: POC Glucose > 600 H* 10/09/18 14:12: Sodium 134 L, Potassium 5.9 H, Chloride 99, Carbon Dioxide 2 L* D, Anion Gap 38.9 H, BUN 35 H, Creatinine 1.35 H D, Estimated Creat Clear 73, Estimated GFR 40 L, Est GFR ( Amer) 49 L D, Glucose 691 H*, Calcium 8.9 10/09/18 16:32: POC Glucose 597 H* 10/09/18 17:14: Sodium 134 L, Potassium 3.9 D, Chloride 99, Carbon Dioxide 5 L* D, Anion Gap 33.9 H, BUN 35 H, Creatinine 1.59 H, Estimated Creat Clear 62, Estimated GFR 33 L, Est GFR ( Amer) 40 L, Glucose 548 H* D, Calcium 8.6 10/09/18 17:14: Lactate 1.3 10/09/18 17:14: Acetone Level Large 10/09/18 17:54: POC Glucose 474 H* 10/09/18 20:00: POC Glucose 423 H* 10/09/18 21:32: Sodium 136, Potassium 3.5, Chloride 103, Carbon Dioxide 9 L* D, Anion Gap 27.5 H, BUN 38 H, Creatinine 1.53 H, Estimated Creat Clear 65, Estimated GFR 35 L, Est GFR ( Amer) 42 L, Glucose 351 H D, Calcium 8.7 10/09/18 22:01: POC Glucose 343 H* 10/10/18 00:00: POC Glucose 280 H 10/10/18 01:45: Sodium 137, Potassium 3.5, Chloride 105, Carbon Dioxide 11 L D, Anion Gap 24.5 H, BUN 38 H, Creatinine 1.51 H, Estimated Creat Clear 66, Estimated GFR 35 L, Est GFR ( Amer) 43 L, Glucose 215 H D, Calcium 8.8 10/10/18 02:01: POC Glucose 250 H 10/10/18 04:02: POC Glucose 134 H 10/10/18 04:56: POC Glucose 138 H 10/10/18 05:40: Sodium 139, Potassium 3.4 L, Chloride 108 H, Carbon Dioxide 14 L D, Anion Gap 20.4 H, BUN 36 H, Creatinine 1.41 H, Estimated Creat Clear 74, Estimated GFR 38 L, Est GFR ( Amer) 46 L, Glucose 131 H D, Calcium 8.5 10/10/18 05:40: Acetone Level Large 10/10/18 06:03: POC Glucose 120 H I & O for Last 24 hours: Intake & Output 10/07/18 10/08/18 10/09/18 10/10/18 11:59 11:59 11:59 11:59 Intake Total 5198 / 5198 Output Total 1775 / 1775 Balance 3423 / 3423 Weight 260 lb 240 lb 4.015 oz - Constitutional no acute distress Comments: Lethargic - *Routine Respiratory Exam Present: CTA bilaterally (Anteriorly and posteriorly) - *Routine Cardiovascular Exam Present: RRR Comments: Sinus tach 100-110 - *Routine Abdominal Exam Present: soft, normoactive bowel sounds. Absent: tenderness Comments: Large - *Routine Exam Comments: Has Robertson catheter - *Routine Extremities Exam Present: edema (Trace) - *Routine Neurological Exam Slow speech. Lethargic. Moves all extremities. Assist with exam. Assessment and Plan (1) DKA (diabetic ketoacidoses) Current visit: Yes Status: Acute Qualifiers: Diabetes mellitus type: other specified (including VALORIE) Diabetes mellitus complication detail: without coma Qualified Code(s): E13.10 - Other specified diabetes mellitus with ketoacidosis without coma Category: Medical Code(s): E13.10 - Other specified diabetes mellitus with ketoacidosis without coma (2) Dehydration Current visit: Yes Status: Acute Category: Medical Code(s): E86.0 - Dehydration (3) Hypertension Current visit: Yes Status: Acute Category: Medical Code(s): I10 - Essential (primary) hypertension (4) Hyperlipidemia Current visit: Yes Status: Acute Category: Medical Code(s): E78.5 - Hyperlipidemia, unspecified (5) Diarrhea Current visit: Yes Status: Acute Qualifiers: Diarrhea type: unspecified type Qualified Code(s): R19.7 - Diarrhea, unspecified Category: Medical Code(s): R19.7 - Diarrhea, unspecified (6) Vomiting Current visit: Yes Status: Acute Qualifiers: Vomiting type: unspecified Vomiting Intractability: unspecified Nausea presence: with nausea Qualified Code(s): R11.2 - Nausea with vomiting, unspecified Category: Medical Code(s): R11.10 - Vomiting, unspecified (7) Depressive disorder Current visit: Yes Status: Acute Category: Medical Code(s): F32.9 - Major depressive disorder, single episode, unspecified (8) Diabetes type 2, uncontrolled Current visit: Yes Status: Acute Category: Medical Code(s): E11.65 - Type 2 diabetes mellitus with hyperglycemia (9) Long-term insulin use Current visit: Yes Status: Acute Category: Medical Code(s): Z79.4 - custodial (current) use of insulin - Assessment and plan all Dx Assessment and Plan for all problems:: Patient is making slow recovery with much improved blood sugars. We will continue to titrate insulin drip as per diabetic protocol. Acetone remains large. Remains on IV fluids with potassium 150 an hour. We will continue with Flagyl. <Ricky Jones - Last Filed: 10/10/18 08:33> Exam Vital signs and Labs for Last 24 Hours: Temp Pulse Resp BP Pulse Ox 98 F 117 H 18 180/75 H 96 10/10/18 08:00 10/10/18 08:00 10/10/18 08:00 10/10/18 08:00 10/10/18 08:00 Laboratory Results - last 24 hr 10/09/18 10:45: WBC 18.5 H, RBC 5.84 H, Hgb 17.3 H, Hct 55.8 H, MCV 95.6, MCH 29.6, MCHC 31.0 L, RDW 14.2, Plt Count 326, MPV 9.3, Neut % (Auto) 87.8 H, Lymph % (Auto) 6.7 L, [place] % (Auto) 5.0, Eos % (Auto) 0.0 L, Baso % (Auto) 0.4, Neut # (Auto) 16.2 H, Lymph # (Auto) 1.2, [place] # (Auto) 0.9, Eos # (Auto) 0.0, Baso # (Auto) 0.1, Total Counted 100, Neutrophils % (Manual) 85 H, Band Neutrophils % 3.0, Lymphocytes % (Manual) 8 L, Monocytes % (Manual) 4, Platelet Estimate Normal, Hypochromasia 1+ 10/09/18 10:45: Sodium 128 L, Potassium 5.0, Chloride 93 L, Carbon Dioxide 4 L*, Anion Gap 36.0 H, BUN 29 H, Creatinine 1.73 H, Estimated Creat Clear 33, Estimated GFR 30 L, Est GFR ( Amer) 36 L, Glucose 716 H*, Calcium 9.2, Total Bilirubin 0.5, AST 18, ALT 25, Alkaline Phosphatase 137 H, Total Protein 8.4 H, Albumin 3.0 L, Globulin 5.4 H, Albumin/Globulin Ratio 0.6 L, Acetone Level Large 10/09/18 10:45: Troponin I < 0.02 10/09/18 10:45: Phosphorus 5.4 H, Magnesium 2.1 10/09/18 10:56: Specimen Source L radial, O2 % Room air, ABG pH 6.92 L*, ABG pCO2 14.3 L, ABG pO2 126.1 H, ABG HCO3 2.9 L, ABG Total CO2 3.3 L, ABG O2 Saturation 98, ABG Base Excess -29.7 L, Shayne Test Acceptable 10/09/18 11:28: Urine Color Yellow, Urine Appearance Clear, Urine pH 5.5, Ur Specific [place] 1.025, Urine Protein 2+, Urine Glucose (UA) 3+, Urine Ketones 3+, Urine Blood 2+, Urine Nitrate Negative, Urine Bilirubin Negative, Urine Urobilinogen 0.2, Ur Leukocyte Esterase Negative, Urine RBC 3-5, Urine WBC Occasional, Ur Squamous Epith Cells Occasional, Urine Bacteria 2+, Fine Granular Casts Occasional 10/09/18 11:55: Lactate 2.8 H 10/09/18 13:25: POC Glucose > 600 H* 10/09/18 14:12: Sodium 134 L, Potassium 5.9 H, Chloride 99, Carbon Dioxide 2 L* D, Anion Gap 38.9 H, BUN 35 H, Creatinine 1.35 H D, Estimated Creat Clear 73, Estimated GFR 40 L, Est GFR ( Amer) 49 L D, Glucose 691 H*, Calcium 8.9 10/09/18 16:32: POC Glucose 597 H* 10/09/18 17:14: Sodium 134 L, Potassium 3.9 D, Chloride 99, Carbon Dioxide 5 L* D, Anion Gap 33.9 H, BUN 35 H, Creatinine 1.59 H, Estimated Creat Clear 62, Estimated GFR 33 L, Est GFR ( Amer) 40 L, Glucose 548 H* D, Calcium 8.6 10/09/18 17:14: Lactate 1.3 10/09/18 17:14: Acetone Level Large 10/09/18 17:54: POC Glucose 474 H* 10/09/18 20:00: POC Glucose 423 H* 10/09/18 21:32: Sodium 136, Potassium 3.5, Chloride 103, Carbon Dioxide 9 L* D, Anion Gap 27.5 H, BUN 38 H, Creatinine 1.53 H, Estimated Creat Clear 65, Estimated GFR 35 L, Est GFR ( Amer) 42 L, Glucose 351 H D, Calcium 8.7 10/09/18 22:01: POC Glucose 343 H* 10/10/18 00:00: POC Glucose 280 H 10/10/18 01:45: Sodium 137, Potassium 3.5, Chloride 105, Carbon Dioxide 11 L D, Anion Gap 24.5 H, BUN 38 H, Creatinine 1.51 H, Estimated Creat Clear 66, Estimated GFR 35 L, Est GFR ( Amer) 43 L, Glucose 215 H D, Calcium 8.8 10/10/18 02:01: POC Glucose 250 H 10/10/18 04:02: POC Glucose 134 H 10/10/18 04:56: POC Glucose 138 H 10/10/18 05:40: Sodium 139, Potassium 3.4 L, Chloride 108 H, Carbon Dioxide 14 L D, Anion Gap 20.4 H, BUN 36 H, Creatinine 1.41 H, Estimated Creat Clear 74, Estimated GFR 38 L, Est GFR ( Amer) 46 L, Glucose 131 H D, Calcium 8.5 10/10/18 05:40: Acetone Level Large 10/10/18 06:03: POC Glucose 120 H I & O for Last 24 hours: Intake & Output 10/07/18 10/08/18 10/09/18 10/10/18 23:59 23:59 23:59 23:59 Intake Total 3398 / 3398 1800 / 1800 Output Total 850 / 850 925 / 925 Balance 2548 / 2548 875 / 875 Weight 228 lb 8 oz 240 lb 4.015 oz Assessment and Plan (1) DKA (diabetic ketoacidoses) Current visit: Yes Status: Acute Qualifiers: Diabetes mellitus type: other specified (including VALORIE) Diabetes mellitus complication detail: without coma Qualified Code(s): E13.10 - Other specified diabetes mellitus with ketoacidosis without coma Category: Medical Code(s): E13.10 - Other specified diabetes mellitus with ketoacidosis without coma (2) Dehydration Current visit: Yes Status: Acute Category: Medical Code(s): E86.0 - Dehydration (3) Hypertension Current visit: Yes Status: Acute Category: Medical Code(s): I10 - Essential (primary) hypertension (4) Hyperlipidemia Current visit: Yes Status: Acute Category: Medical Code(s): E78.5 - Hyperlipidemia, unspecified (5) Diarrhea Current visit: Yes Status: Acute Qualifiers: Diarrhea type: unspecified type Qualified Code(s): R19.7 - Diarrhea, unspec ified Category: Medical Code(s): R19.7 - Diarrhea, unspecified (6) Vomiting Current visit: Yes Status: Acute Qualifiers: Vomiting type: unspecified Vomiting Intractability: unspecified Nausea presence: with nausea Qualified Code(s): R11.2 - Nausea with vomiting, unspecified Category: Medical Code(s): R11.10 - Vomiting, unspecified (7) Depressive disorder Current visit: Yes Status: Acute Category: Medical Code(s): F32.9 - Major depressive disorder, single episode, unspecified (8) Diabetes type 2, uncontrolled Current visit: Yes Status: Acute Category: Medical Code(s): E11.65 - Type 2 diabetes mellitus with hyperglycemia (9) Long-term insulin use Current visit: Yes Status: Acute Category: Medical Code(s): 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
[2018-10-10 17:26] LABS: Anion Gap 19.7 mEq/L (5-15); Calcium 8.4 mg/dL (8.5-10.1); Potassium 3.7 mmoL/L (3.5-5.1)
[2018-10-11 06:38] LABS: Basophils % 0.1 % (0.1-2.0); Hematocrit 44.6 % (37.0-47.0); Lymphocytes # 0.8 K/mm3 (0.7-4.5); Lymphocytes % 7.7 % (10-50); Mean Corpuscular HGB Conc 33.7 g/dL (31.8-35.4); Mean Corpuscular Hemoglobin 28.9 pg (27.0-31.2); Mean Corpuscular Volume 85.8 fl (81-99); Mean Platelet Volume 8.6 fl (7.4-10.4); Monocytes # 0.6 K/mm3 (0.1-1.0); Monocytes % 5.8 % (1.7-9.3); Neutrophils # 8.6 K/mm3 (1.8-7.8); Neutrophils % 86.3 % (37.0-80.0); Platelet Count 171 K/mm3 (142-424); Red Cell Distribution Width 14.6 % (11.5-17.5); White Blood Count 9.9 K/mm3 (4.8-10.8)
[2018-10-11 06:47] LABS: Calcium 8.4 mg/dL (8.5-10.1)
--- NOTE | 2018-10-11 08:48 | Progress Note ---
Internal Medicine - PN: Subj *Date: 10/11/18 *Time: 08:46 Interval history: Patient feels a little better today. She is tolerating a liquid diet. Exam Vital signs and Labs for Last 24 Hours: Temp Pulse Resp BP Pulse Ox 98.3 F 110 H 24 141/70 H 95 10/11/18 06:00 10/11/18 06:00 10/11/18 06:00 10/11/18 06:00 10/11/18 08:27 Laboratory Results - last 24 hr 10/10/18 07:57: POC Glucose 104 10/10/18 09:17: POC Glucose 104 10/10/18 10:03: POC Glucose 106 10/10/18 10:58: POC Glucose 102 10/10/18 12:20: POC Glucose 124 H 10/10/18 12:58: POC Glucose 116 H 10/10/18 14:11: POC Glucose 132 H 10/10/18 16:09: POC Glucose 181 H 10/10/18 17:13: Sodium 140, Potassium 3.7, Chloride 110 H, Carbon Dioxide 14 L, Anion Gap 19.7 H, BUN 32 H, Creatinine 1.19 H, Estimated Creat Clear 88, Estimated GFR 46 L, Est GFR ( Amer) 56 L D, Glucose 246 H D, Calcium 8.4 L 10/10/18 17:13: Acetone Level Small 10/10/18 18:00: POC Glucose 231 H 10/10/18 20:04: POC Glucose 219 H 10/10/18 22:15: POC Glucose 270 H 10/10/18 23:56: POC Glucose 293 H 10/11/18 02:12: POC Glucose 232 H 10/11/18 04:13: POC Glucose 239 H 10/11/18 05:40: Sodium 144, Potassium 3.0 L, Chloride 114 H, Carbon Dioxide 15 L , Anion Gap 18.0 H, BUN 25 H, Creatinine 1.08 H, Estimated Creat Clear 96, Estimated GFR 52 L, Est GFR ( Amer) 63, Glucose 250 H, Calcium 8.4 L 10/11/18 05:40: Acetone Level Small 10/11/18 05:40: WBC 9.9 D, RBC 5.20, Hgb 15.0, Hct 44.6, MCV 85.8, MCH 28.9, MCHC 33.7, RDW 14.6, Plt Count 171 D, MPV 8.6, Neut % (Auto) 86.3 H, Lymph % (Auto) 7.7 L, [place] % (Auto) 5.8, Eos % (Auto) 0.0 L, Baso % (Auto) 0.1, Neut # (Auto) 8.6 H, Lymph # (Auto) 0.8, [place] # (Auto) 0.6, Eos # (Auto) 0.0, Baso # (Auto) 0.0 10/11/18 05:55: POC Glucose 255 H 10/11/18 08:09: POC Glucose 192 H Vital Signs - 24 hr 10/10/18 10:00 10/10/18 11:45 10/10/18 12:00 Temperature 98.4 F 98.5 F Pulse Rate 110 H Pulse Rate [Apical] 112 H 107 H Respiratory Rate 14 20 Blood Pressure [Right Arm] 187/70 H 125/99 H 02 Sat by Pulse Oximetry 96 97 10/10/18 14:00 10/10/18 16:00 10/10/18 18:00 Temperature 98.0 F 97.6 F 98.4 F Pulse Rate 90 Pulse Rate [Apical] 87 91 H 98 H Respiratory Rate 16 15 15 Blood Pressure [Right Arm] 101/58 L 114/49 L 137/65 02 Sat by Pulse Oximetry 99 97 98 10/10/18 20:00 10/10/18 22:00 10/11/18 00:30 Temperature 98.5 F 98.7 F Pulse Rate Pulse Rate [Apical] 98 H 106 H 107 H Respiratory Rate 18 24 23 Blood Pressure [Right Arm] 123/70 132/53 L 124/66 02 Sat by Pulse Oximetry 99 97 97 10/11/18 00:45 10/11/18 02:00 10/11/18 04:00 Temperature 99 F Pulse Rate 100 H 100 H Pulse Rate [Apical] 111 H 112 H Respiratory Rate 17 24 Blood Pressure [Right Arm] 125/64 110/44 L 02 Sat by Pulse Oximetry 95 96 10/11/18 06:00 10/11/18 08:27 Temperature 98.3 F Pulse Rate Pulse Rate [Apical] 110 H Respiratory Rate 24 Blood Pressure [Right Arm] 141/70 H 02 Sat by Pulse Oximetry 95 95 I & O for Last 24 hours: Intake & Output 10/08/18 10/09/18 10/10/18 10/11/18 23:59 23:59 23:59 23:59 Intake Total 3398 / 3398 4376 / 4376 1877 / 1877 Output Total 850 / 850 1750 / 1750 900 / 900 Balance 2548 / 2548 2626 / 2626 977 / 977 Weight 228 lb 8 oz 240 lb 4.015 oz Microbiology Reports for the Last 24 Hours: Microbiology 10/09/18 11:28 Urine,Catheterized Urine Culture - Preliminary NO GROWTH AFTER 24 HOURS - Constitutional no acute distress - *Routine HEENT Exam Head: Present: normocephalic Eye: Present: EOMI ENT: Present: mucous membranes moist - *Routine Neck Exam Present: supple. Absent: lymphadenopathy - *Routine Respiratory Exam Present: CTA bilaterally - *Routine Cardiovascular Exam Present: RRR - *Routine Abdominal Exam Present: soft, normoactive bowel sounds. Absent: tenderness - *Routine Extremities Exam Absent: cyanosis, clubbing, edema - *Routine Skin Exam Present: warm. Absent: rash - *Routine Neurological Exam Present: alert Assessment and Plan (1) DKA (diabetic ketoacidoses) Current visit: Yes Status: Acute Qualifiers: Diabetes mellitus type: other specified (including VALORIE) Diabetes mellitus complication detail: without coma Qualified Code(s): E13.10 - Other specified diabetes mellitus with ketoacidosis without coma Category: Medical Code(s): E13.10 - Other specified diabetes mellitus with ketoacidosis without coma (2) Dehydration Current visit: Yes Status: Acute Category: Medical Code(s): E86.0 - Dehydration (3) Hypertension Current visit: Yes Status: Acute Category: Medical Code(s): I10 - E ssential (primary) hypertension (4) Hyperlipidemia Current visit: Yes Status: Acute Category: Medical Code(s): E78.5 - Hyperlipidemia, unspecified (5) Diarrhea Current visit: Yes Status: Acute Qualifiers: Diarrhea type: unspecified type Qualified Code(s): R19.7 - Diarrhea, unspecified Category: Medical Code(s): R19.7 - Diarrhea, unspecified (6) Vomiting Current visit: Yes Status: Acute Qualifiers: Vomiting type: unspecified Vomiting Intractability: unspecified Nausea presence: with nausea Qualified Code(s): R11.2 - Nausea with vomiting, unspecified Category: Medical Code(s): R11.10 - Vomiting, unspecified (7) Depressive disorder Current visit: Yes Status: Acute Category: Medical Code(s): F32.9 - Major depressive disorder, single episode, unspecified (8) Diabetes type 2, uncontrolled Current visit: Yes Status: Acute Category: Medical Code(s): E11.65 - Type 2 diabetes mellitus with hyperglycemia (9) Long-term insulin use Current visit: Yes Status: Acute Category: Medical Code(s): Z79.4 - USP (current) use of insulin (10) Non compliance w medication regimen Current visit: Yes Status: Acute Category: Medical Code(s): Z91.14 - Patient's other noncompliance with medication regimen - Assessment and plan all Dx Assessment and Plan for all problems:: Patient has improved, plan to remove shah, change to subcutaneous insulin today and transfer out of step down unit.
[2018-10-11 09:22] LABS: Lymphocytes % 4 % (10-50); Monocytes % 3 % (2-9); Neutrophils % 87 % (42-76); Total Cells Counted 100
[2018-10-12 06:59] LABS: Basophils % 0.2 % (0.1-2.0); Eosinophils % 0.1 % (0.1-12.0); Hematocrit 39.9 % (37.0-47.0); Hemoglobin 13.9 g/dL (12.2-16.2); Lymphocytes # 1.2 K/mm3 (0.7-4.5); Lymphocytes % 15.5 % (10-50); Mean Corpuscular HGB Conc 34.8 g/dL (31.8-35.4); Mean Corpuscular Hemoglobin 29.1 pg (27.0-31.2); Mean Corpuscular Volume 83.4 fl (81-99); Mean Platelet Volume 8.6 fl (7.4-10.4); Monocytes # 0.4 K/mm3 (0.1-1.0); Monocytes % 5.3 % (1.7-9.3); Neutrophils # 6.2 K/mm3 (1.8-7.8); Neutrophils % 79.1 % (37.0-80.0); Platelet Count 138 K/mm3 (142-424); Red Blood Count 4.78 M/mm3 (4.20-5.40); Red Cell Distribution Width 14.6 % (11.5-17.5); White Blood Count 7.8 K/mm3 (4.8-10.8)
[2018-10-12 07:10] LABS: Anion Gap 15.9 mEq/L (5-15); Calcium 8.3 mg/dL (8.5-10.1)
[2018-10-12 07:13] LABS: Potassium 2.9 mmoL/L (3.5-5.1)
--- NOTE | 2018-10-12 08:31 | Progress Note ---
<Kimberly Alvarez - Last Filed: 10/12/18 08:28> Internal Medicine - PN: Subj *Date: 10/12/18 *Time: 08:28 Interval history: Patient is not feeling well this am. She continues to vomit. She still feels nauseated. She denies any pain this am but states she did not sleep well. Exam Vital signs and Labs for Last 24 Hours: Temp Pulse Resp BP Pulse Ox 99.1 F 114 H 22 117/77 97 10/12/18 08:00 10/12/18 08:00 10/12/18 08:00 10/12/18 08:00 10/12/18 08:00 Laboratory Results - last 24 hr 10/09/18 10:29: POC Glucose > 600 H* 10/11/18 05:40: Total Counted 100, Neutrophils % (Manual) 87 H, Band Neutrophils % 4.0, Lymphocytes % (Manual) 4 L, Atypical Lymphs % 2.0, Monocytes % (Manual) 3, Platelet Estimate Normal 10/11/18 08:09: POC Glucose 192 H 10/11/18 11:19: POC Glucose 256 H 10/12/18 06:02: WBC 7.8, RBC 4.78, Hgb 13.9, Hct 39.9, MCV 83.4, MCH 29.1, MCHC 34.8, RDW 14.6, Plt Count 138 L, MPV 8.6, Neut % (Auto) 79.1, Lymph % (Auto) 15.5, [place] % (Auto) 5.3, Eos % (Auto) 0.1, Baso % (Auto) 0.2, Neut # (Auto) 6.2, Lymph # (Auto) 1.2, [place] # (Auto) 0.4, Eos # (Auto) 0.0, Baso # (Auto) 0.0 10/12/18 06:02: Sodium 143, Potassium 2.9 L*, Chloride 111 H, Carbon Dioxide 19 L D, Anion Gap 15.9 H, BUN 17 D, Creatinine 0.75 D, Estimated Creat Clear 76, Estimated GFR 79, Est GFR ( Amer) 96 D, Glucose 234 H, Calcium 8.3 L I & O for Last 24 hours: Intake & Output 10/09/18 10/10/18 10/11/18 10/12/18 11:59 11:59 11:59 11:59 Intake Total 5198 / 5198 4453 / 4453 1740 / 1740 Output Total 1775 / 1775 1725 / 1725 900 / 900 Balance 3423 / 3423 2728 / 2728 840 / 840 Weight 260 lb 240 lb 4.015 oz 260 lb Microbiology Reports for the Last 24 Hours: Microbiology 10/09/18 11:55 Blood Blood Culture - Preliminary NO GROWTH AFTER 48 HOURS 10/09/18 11:55 Blood Blood Culture - Preliminary NO GROWTH AFTER 48 HOURS 10/09/18 11:28 Urine,Catheterized Urine Culture - Final NO GROWTH AFTER 48 HOURS - Constitutional no acute distress - *Routine Respiratory Exam Present: CTA bilaterally - *Routine Cardiovascular Exam Present: RRR - *Routine Abdominal Exam Present: soft, normoactive bowel sounds. Absent: tenderness - *Routine Extremities Exam Absent: cyanosis, clubbing, edema Assessment and Plan (1) DKA (diabetic ketoacidoses) Current visit: Yes Status: Acute Qualifiers: Diabetes mellitus type: other specified (including [place]) Diabetes mellitus complication detail: without coma Qualified Code(s): E13.10 - Other specified diabetes mellitus with ketoacidosis without coma Category: Medical Code(s): E13.10 - Other specified diabetes mellitus with ketoacidosis without coma (2) Dehydration Current visit: Yes Status: Acute Category: Medical Code(s): E86.0 - Dehydration (3) Hypertension Current visit: Yes Status: Acute Category: Medical Code(s): I10 - Essential (primary) hypertension (4) Hyperlipidemia Current visit: Yes Status: Acute Category: Medical Code(s): E78.5 - Hyperlipidemia, unspecified (5) Diarrhea Current visit: Yes Status: Acute Qualifiers: Diarrhea type: unspecified type Qualified Code(s): R19.7 - Diarrhea, unspecified Category: Medical Code(s): R19.7 - Diarrhea, unspecified (6) Vomiting Current visit: Yes Status: Acute Qualifiers: Vomiting type: unspecified Vomiting Intractability: unspecified Nausea presence: with nausea Qualified Code(s): R11.2 - Nausea with vomiting, unspecified Category: Medical Code(s): R11.10 - Vomiting, unspecified (7) Depressive disorder Current visit: Yes Status: Acute Category: Medical Code(s): F32.9 - Major depressive disorder, single episode, unspecified (8) Diabetes type 2, uncontrolled Current visit: Yes Status: Acute Category: Medical Code(s): E11.65 - Type 2 diabetes mellitus with hyperglycemia (9) Long-term insulin use Current visit: Yes Status: Acute Category: Medical Code(s): 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 Her potassium is low. Will give 2 runs of potassium today and start on IVF's with potassium. Will recheck labs tomorrow. <Ricky Jones - Last Filed: 10/12/18 08:58> Exam Vital signs and Labs for Last 24 Hours: Temp Pulse Resp BP Pulse Ox 99.1 F 114 H 22 117/77 97 10/12/18 08:00 10/12/18 08:00 10/12/18 08:00 10/12/18 08:00 10/12/18 08:00 Laboratory Results - last 24 hr 10/09/18 10:29: POC Glucose > 600 H* 10/11/18 05:40: Total Counted 100, Neutrophils % (Manual) 87 H, Band Neutrophils % 4.0, Lymphocytes % (Manual) 4 L, Atypical Lymphs % 2.0, Monocytes % (Manual) 3, Platelet Estimate Normal 10/11/18 11:19: POC Glucose 256 H 10/12/18 06:02: WBC 7.8, RBC 4.78, Hgb 13.9, Hct 39.9, MCV 83.4, MCH 29.1, MCHC 34.8, RDW 14.6, Plt Count 138 L, MPV 8.6, Neut % (Auto) 79.1, Lymph % (Auto) 15.5, [place] % (Auto) 5.3, Eos % (Auto) 0.1, Baso % (Auto) 0.2, Neut # (Auto) 6.2, Lymph # (Auto) 1.2, [place] # (Auto) 0.4, Eos # (Auto) 0.0, Baso # (Auto) 0.0 10/12/18 06:02: Sodium 143, Potassium 2.9 L*, Chloride 111 H, Carbon Dioxide 19 L D, Anion Gap 15.9 H, BUN 17 D, Creatinine 0.75 D, Estimated Creat Clear 76, Estimated GFR 79, Est GFR ( Amer) 96 D, Glucose 234 H, Calcium 8.3 L I & O for Last 24 hours: Intake & Output 10/09/18 10/10/18 10/11/18 10/12/18 23:59 23:59 23:59 23:59 Intake Total 3398 / 3398 4376 / 4376 3257 / 3257 360 / 360 Output Total 850 / 850 1750 / 1750 1400 / 1400 400 / 400 Balance 2548 / 2548 2626 / 2626 1857 / 1857 -40 / -40 Weight 228 lb 8 oz 240 lb 4.015 oz 260 lb Microbiology Reports for the Last 24 Hours: Microbiology 10/09/18 11:55 Blood Blood Culture - Preliminary NO GROWTH AFTER 48 HOURS 10/09/18 11:55 Blood Blood Culture - Preliminary NO GROWTH AFTER 48 HOURS 10/09/18 11:28 Urine,Catheterized Urine Culture - Final NO GROWTH AFTER 48 HOURS Assessment and Plan (1) DKA (diabetic ketoacidoses) Current visit: Yes Status: Acute Qualifiers: Diabetes mellitus type: other specified (including VALORIE) Diabetes mellitus complication detail: without coma Qualified Code(s): E13.10 - Other specified diabetes mellitus with ketoacidosis without coma Category: Medical Code(s): E13.10 - Other specified diabetes mellitus with ketoacidosis without coma (2) Dehydration Current visit: Yes Status: Acute Category: Medical Code(s): E86.0 - Dehydration (3) Hypertension Current visit: Yes Status: Acute Category: Medical Code(s): I10 - Essential (primary) hypertension (4) Hyperlipidemia Current visit: Yes Status: Acute Category: Medical Code(s): E78.5 - Hyperlipidemia, unspecified (5) Diarrhea Current visit: Yes Status: Acute Qualifiers: Diarrhea type: unspecified type Qualified Code(s): R19.7 - Diarrhea, unspe cified Category: Medical Code(s): R19.7 - Diarrhea, unspecified (6) Vomiting Current visit: Yes Status: Acute Qualifiers: Vomiting type: unspecified Vomiting Intractability: unspecified Nausea presence: with nausea Qualified Code(s): R11.2 - Nausea with vomiting, unspecified Category: Medical Code(s): R11.10 - Vomiting, unspecified (7) Depressive disorder Current visit: Yes Status: Acute Category: Medical Code(s): F32.9 - Major depressive disorder, single episode, unspecified (8) Diabetes type 2, uncontrolled Current visit: Yes Status: Acute Category: Medical Code(s): E11.65 - Type 2 diabetes mellitus with hyperglycemia (9) Long-term insulin use Current visit: Yes Status: Acute Category: Medical Code(s): 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
[2018-10-13 06:19] LABS: Basophils % 0.4 % (0.1-2.0); Eosinophils % 0.4 % (0.1-12.0); Hematocrit 39.4 % (37.0-47.0); Hemoglobin 13.5 g/dL (12.2-16.2); Lymphocytes # 1.7 K/mm3 (0.7-4.5); Lymphocytes % 16.9 % (10-50); Mean Corpuscular HGB Conc 34.3 g/dL (31.8-35.4); Mean Corpuscular Volume 84.7 fl (81-99); Mean Platelet Volume 8.8 fl (7.4-10.4); Monocytes # 0.6 K/mm3 (0.1-1.0); Monocytes % 6.2 % (1.7-9.3); Neutrophils # 7.8 K/mm3 (1.8-7.8); Neutrophils % 76.1 % (37.0-80.0); Platelet Count 138 K/mm3 (142-424); Red Blood Count 4.65 M/mm3 (4.20-5.40); Red Cell Distribution Width 14.5 % (11.5-17.5); White Blood Count 10.2 K/mm3 (4.8-10.8)
[2018-10-13 07:02] LABS: Albumin/Globulin Ratio 0.7 (1.1-1.8); Anion Gap 16.2 mEq/L (5-15); Bilirubin,Total 0.5 mg/dL (0.2-1.0); Calcium 7.9 mg/dL (8.5-10.1); Potassium 3.2 mmoL/L (3.5-5.1)
--- NOTE | 2018-10-13 07:08 | Progress Note ---
Internal Medicine - PN: Subj *Date: 10/13/18 *Time: 07:07 Interval history: Pt feels better today, no new complaints. Exam Vital signs and Labs for Last 24 Hours: Temp Pulse Resp BP Pulse Ox 98.4 F 92 H 18 112/53 L 95 10/13/18 04:00 10/13/18 04:00 10/13/18 04:00 10/13/18 04:00 10/13/18 04:00 Laboratory Results - last 24 hr 10/12/18 06:02: WBC 7.8, RBC 4.78, Hgb 13.9, Hct 39.9, MCV 83.4, MCH 29.1, MCHC 34.8, RDW 14.6, Plt Count 138 L, MPV 8.6, Neut % (Auto) 79.1, Lymph % (Auto) 15.5, [place] % (Auto) 5.3, Eos % (Auto) 0.1, Baso % (Auto) 0.2, Neut # (Auto) 6.2, Lymph # (Auto) 1.2, [place] # (Auto) 0.4, Eos # (Auto) 0.0, Baso # (Auto) 0.0 10/12/18 06:02: Sodium 143, Potassium 2.9 L*, Chloride 111 H, Carbon Dioxide 19 L D, Anion Gap 15.9 H, BUN 17 D, Creatinine 0.75 D, Estimated Creat Clear 76, Estimated GFR 79, Est GFR ( Amer) 96 D, Glucose 234 H, Calcium 8.3 L 10/12/18 21:52: POC Glucose 151 H 10/13/18 03:00: Stl Aeromonas (PCR) Not detected, Stl C. cayetanensis PCR Not detected, Stool Rotavirus (PCR) Not detected, Stl Adenov F 40/41 PCR Not detected, Stool Astrovirus (PCR) Not detected, Stool Campylobacter PCR Not detected, Stl C.difficile Tox PCR Not detected, Stool Cryptosporidium PCR Not detected, Stl E.coli Shiga Tox PCR Not detected, Stool E coli O157 PCR Not detected, Stl Enterotoxigenic E PCR Not detected, Stool EPEC (PCR) Not detected, Stool EAEC (PCR) Not detected, Stl E. histolytica PCR Not detected, Stool Giardia Lamblia PCR Not detected, Stool Salmonella PCR Not detected, Stool Sapovirus (PCR) Not detected, Stl P. shigelloides PCR Not detected, Stl Shigella/EIEC PCR Not detected, St Y.enterocolitica PCR Not detected, Stool Vibrio (PCR) Not detected, Stl Vibrio cholerae PCR Not detected, Stl Norovirus GI/GII PCR Detected A 10/13/18 05:22: POC Glucose 148 H 10/13/18 05:45: WBC 10.2 D, RBC 4.65, Hgb 13.5, Hct 39.4, MCV 84.7, MCH 29.0, MCHC 34.3, RDW 14.5, Plt Count 138 L, MPV 8.8, Neut % (Auto) 76.1, Lymph % (Auto) 16.9, [place] % (Auto) 6.2, Eos % (Auto) 0.4, Baso % (Auto) 0.4, Neut # (Auto) 7.8, Lymph # (Auto) 1.7, [place] # (Auto) 0.6, Eos # (Auto) 0.0, Baso # (Auto) 0.0 10/13/18 05:45: Sodium 145, Potassium 3.2 L, Chloride 111 H, Carbon Dioxide 21, Anion Gap 16.2 H, BUN 14, Creatinine 0.63, Estimated Creat Clear 172, Estimated GFR 97, Est GFR ( Amer) 117 D, Glucose 155 H D, Calcium 7.9 L, Total Bilirubin 0.5, AST 18, ALT 18, Alkaline Phosphatase 65, Total Protein 5.0 L D, Albumin 2.0 L, Globulin 3.0, Albumin/Globulin Ratio 0.7 L I & O for Last 24 hours: Intake & Output 10/10/18 10/11/18 10/12/18 10/13/18 23:59 23:59 23:59 23:59 Intake Total 4376 / 4376 3257 / 3257 2955 / 2955 1175 / 1175 Output Total 1750 / 1750 1400 / 1400 1600 / 1600 200 / 200 Balance 2626 / 2626 1857 / 1857 1355 / 1355 975 / 975 Weight 240 lb 4.015 oz 260 lb 249 lb 6 oz - Constitutional no acute distress - *Routine HEENT Exam Head: Present: normocephalic Eye: Present: EOMI ENT: Present: mucous membranes moist - *Routine Neck Exam Present: supple. Absent: lymphadenopathy - *Routine Respiratory Exam Present: CTA bilaterally - *Routine Cardiovascular Exam Present: RRR - *Routine Abdominal Exam Present: soft, normoactive bowel sounds. Absent: tenderness - *Routine Extremities Exam Absent: cyanosis, clubbing, edema - *Routine Skin Exam Present: warm. Absent: rash - *Routine Neurological Exam Present: alert, oriented X3 Assessment and Plan (1) DKA (diabetic ketoacidoses) Current visit: Yes Status: Acute Qualifiers: Diabetes mellitus type: other specified (including VALORIE) Diabetes mellitus complication detail: without coma Qualified Code(s): E13.10 - Other specified diabetes mellitus with ketoacidosis without coma Category: Medical Code(s): E13.10 - Other specified diabetes mellitus with ketoacidosis without coma (2) Dehydration Current visit: Yes Status: Acute Category: Medical Code(s): E86.0 - Dehydration (3) Hypertension Current visit: Yes Status: Acute Category: Medical Code(s): I10 - Essential (primary) hypertension (4) Hyperlipidemia Current visit: Yes Status: Acute Category: Medical Code(s): E78.5 - Hy perlipidemia, unspecified (5) Diarrhea Current visit: Yes Status: Acute Qualifiers: Diarrhea type: unspecified type Qualified Code(s): R19.7 - Diarrhea, unspecified Category: Medical Code(s): R19.7 - Diarrhea, unspecified (6) Vomiting Current visit: Yes Status: Acute Qualifiers: Vomiting type: unspecified Vomiting Intractability: unspecified Nausea presence: with nausea Qualified Code(s): R11.2 - Nausea with vomiting, unspecified Category: Medical Code(s): R11.10 - Vomiting, unspecified (7) Depressive disorder Current visit: Yes Status: Acute Category: Medical Code(s): F32.9 - Major depressive disorder, single episode, unspecified (8) Diabetes type 2, uncontrolled Current visit: Yes Status: Acute Category: Medical Code(s): E11.65 - Type 2 diabetes mellitus with hyperglycemia (9) Long-term insulin use Current visit: Yes Status: Acute Category: Medical Code(s): 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
[2018-10-14 06:15] LABS: Basophils % 0.4 % (0.1-2.0); Eosinophils # 0.2 K/mm3 (0.0-0.4); Eosinophils % 1.9 % (0.1-12.0); Hematocrit 40.9 % (37.0-47.0); Hemoglobin 14.2 g/dL (12.2-16.2); Lymphocytes # 1.6 K/mm3 (0.7-4.5); Lymphocytes % 18.1 % (10-50); Mean Corpuscular HGB Conc 34.7 g/dL (31.8-35.4); Mean Corpuscular Hemoglobin 29.8 pg (27.0-31.2); Mean Corpuscular Volume 85.9 fl (81-99); Mean Platelet Volume 9.6 fl (7.4-10.4); Monocytes # 0.6 K/mm3 (0.1-1.0); Monocytes % 6.3 % (1.7-9.3); Neutrophils # 6.6 K/mm3 (1.8-7.8); Neutrophils % 73.2 % (37.0-80.0); Platelet Count 148 K/mm3 (142-424); Red Blood Count 4.77 M/mm3 (4.20-5.40); Red Cell Distribution Width 14.7 % (11.5-17.5)
[2018-10-14 06:30] LABS: Anion Gap 13.5 mEq/L (5-15); Calcium 8.1 mg/dL (8.5-10.1); Potassium 3.5 mmoL/L (3.5-5.1)
--- NOTE | 2018-10-14 09:43 | Progress Note ---
Internal Medicine - PN: Subj *Date: 10/14/18 *Time: 09:40 Interval history: Patient feels better today, no new complaints. Exam Vital signs and Labs for Last 24 Hours: Temp Pulse Resp BP Pulse Ox 98.0 F 91 H 17 124/60 98 10/14/18 08:00 10/14/18 08:00 10/14/18 08:00 10/14/18 08:00 10/14/18 08:00 Laboratory Results - last 24 hr 10/13/18 11:19: POC Glucose 181 H 10/13/18 16:29: POC Glucose 219 H 10/13/18 20:26: POC Glucose 198 H 10/14/18 05:21: POC Glucose 101 10/14/18 05:50: WBC 9.0, RBC 4.77, Hgb 14.2, Hct 40.9, MCV 85.9, MCH 29.8, MCHC 34.7, RDW 14.7, Plt Count 148, MPV 9.6, Neut % (Auto) 73.2, Lymph % (Auto) 18.1, [place] % (Auto) 6.3, Eos % (Auto) 1.9, Baso % (Auto) 0.4, Neut # (Auto) 6.6, Lymph # (Auto) 1.6, [place] # (Auto) 0.6, Eos # (Auto) 0.2, Baso # (Auto) 0.0 10/14/18 05:50: Sodium 144, Potassium 3.5, Chloride 111 H, Carbon Dioxide 23, Anion Gap 13.5, BUN 12, Creatinine 0.59, Estimated Creat Clear 184, Estimated GFR 104, Est GFR ( Amer) 126, Glucose 110 H, Calcium 8.1 L Vital Signs - 24 hr 10/13/18 15:29 10/13/18 20:00 10/14/18 04:00 Temperature 98.2 F 98.0 F 97.9 F Pulse Rate [Left Brachial] 74 80 76 Respiratory Rate 17 17 16 Blood Pressure [Right Arm] 95/48 L 111/73 132/63 02 Sat by Pulse Oximetry 98 97 97 10/14/18 08:00 Temperature 98.0 F Pulse Rate [Left Brachial] 91 H Respiratory Rate 17 Blood Pressure [Right Arm] 124/60 02 Sat by Pulse Oximetry 98 I & O for Last 24 hours: Intake & Output 10/11/18 10/12/18 10/13/18 10/14/18 23:59 23:59 23:59 23:59 Intake Total 3257 / 3257 2955 / 2955 4395 / 4395 194 / 194 Output Total 1400 / 1400 1600 / 1600 750 / 750 1500 / 1500 Balance 1857 / 1857 1355 / 1355 3645 / 3645 442 / 442 Weight 260 lb 249 lb 6 oz 250 lb 2.995 oz - Constitutional no acute distress (sitting in a chair) - *Routine HEENT Exam Head: Present: normocephalic Eye: Present: EOMI ENT: Present: mucous membranes moist - *Routine Neck Exam Present: supple. Absent: lymphadenopathy - *Routine Respiratory Exam Present: CTA bilaterally - *Routine Cardiovascular Exam Present: RRR - *Routine Abdominal Exam Present: soft, normoactive bowel sounds. Absent: tenderness - *Routine Extremities Exam Absent: cyanosis, clubbing, edema - *Routine Skin Exam Present: warm. Absent: rash - *Routine Neurological Exam Present: alert, oriented X3 - Routine Psychiatric Exam Comments: Blunted affect Assessment and Plan (1) DKA (diabetic ketoacidoses) Current visit: Yes Status: Acute Qualifiers: Diabetes mellitus type: other specified (including VALORIE) Diabetes mellitus complication detail: without coma Qualified Code(s): E13.10 - Other specified diabetes mellitus with ketoacidosis without coma Category: Medical Code(s): E13.10 - Other specified diabetes mellitus with ketoacidosis without coma (2) Dehydration Current visit: Yes Status: Acute Category: Medical Code(s): E86.0 - Dehydration (3) Hypertension Current visit: Yes Status: Acute Category: Medical Code(s): I10 - Essential (primary) hypertension (4) Hyperlipidemia Current visit: Yes Status: Acute Category: Medical Code(s): E78.5 - Hyperlipidemia, unspecified (5) Diarrhea Current visit: Yes Status: Acute Qualifiers: Diarrhea type: unspecified type Qualified Code(s): R19.7 - Diarrhea, unspecified Category: Medical Code(s): R19.7 - Diarrhea, unspecified (6) Vomiting Current visit: Yes Status: Acute Qualifiers: Vomiting type: unspecified Vomiting Intractability: unspecified Nausea presence: with nausea Qualified Code(s): R11.2 - Nausea with vomiting, unspecified Category: Medical Code(s): R11.10 - Vomiting, unspecified (7) Depressive disorder Current visit: Yes Status: Acute Category: Medical Code(s): F32.9 - Major depressive disorder, single episode, unspecified (8) Diabetes type 2, uncontrolled Current visit: Yes Status: Acute Category: Medical Code(s): E11.65 - Type 2 diabetes mellitus with hyperglycemia (9) Long-term insulin use Current visit: Yes Status: Acute Category: Medical Code(s): 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
--- NOTE | 2018-10-14 12:03 | Progress Note ---
Internal Medicine - PN: Subj *Date: 10/14/18 *Time: 12:03 Exam Vital signs and Labs for Last 24 Hours: Temp Pulse Resp BP Pulse Ox 98.0 F 91 H 17 124/60 98 10/14/18 08:00 10/14/18 08:00 10/14/18 08:00 10/14/18 08:00 10/14/18 08:00 Laboratory Results - last 24 hr 10/13/18 11:19: POC Glucose 181 H 10/13/18 16:29: POC Glucose 219 H 10/13/18 20:26: POC Glucose 198 H 10/14/18 05:21: POC Glucose 101 10/14/18 05:50: WBC 9.0, RBC 4.77, Hgb 14.2, Hct 40.9, MCV 85.9, MCH 29.8, MCHC 34.7, RDW 14.7, Plt Count 148, MPV 9.6, Neut % (Auto) 73.2, Lymph % (Auto) 18.1, [place] % (Auto) 6.3, Eos % (Auto) 1.9, Baso % (Auto) 0.4, Neut # (Auto) 6.6, Lymph # (Auto) 1.6, [place] # (Auto) 0.6, Eos # (Auto) 0.2, Baso # (Auto) 0.0 10/14/18 05:50: Sodium 144, Potassium 3.5, Chloride 111 H, Carbon Dioxide 23, Anion Gap 13.5, BUN 12, Creatinine 0.59, Estimated Creat Clear 184, Estimated GFR 104, Est GFR ( Amer) 126, Glucose 110 H, Calcium 8.1 L I & O for Last 24 hours: Intake & Output 10/11/18 10/12/18 10/13/18 10/14/18 23:59 23:59 23:59 23:59 Intake Total 3257 / 3257 2955 / 2955 4395 / 4395 1942 / 1942 Output Total 1400 / 1400 1600 / 1600 750 / 750 1500 / 1500 Balance 1857 / 1857 1355 / 1355 3645 / 3645 442 / 442 Weight 117.934 kg 113.115 kg 113.483 kg Assessment and Plan (1) DKA (diabetic ketoacidoses) Current visit: Yes Status: Acute Qualifiers: Diabetes mellitus type: other specified (including [place]ORIE) Diabetes mellitus complication detail: without coma Qualified Code(s): E13.10 - Other specified diabetes mellitus with ketoacidosis without coma Category: Medical Code(s): E13.10 - Other specified diabetes mellitus with ketoacidosis without coma (2) Dehydration Current visit: Yes Status: Acute Category: Medical Code(s): E86.0 - Dehydration (3) Hypertension Current visit: Yes Status: Acute Category: Medical Code(s): I10 - Essential (primary) hypertension (4) Hyperlipidemia Current visit: Yes Status: Acute Category: Medical Code(s): E78.5 - Hyperlipidemia, unspecified (5) Diarrhea Current visit: Yes Status: Acute Qualifiers: Diarrhea type: unspecified type Qualified Code(s): R19.7 - Diarrhea, unspecified Category: Medical Code(s): R19.7 - Diarrhea, unspecified (6) Vomiting Current visit: Yes Status: Acute Qualifiers: Vomiting type: unspecified Vomiting Intractability: unspecified Nausea presence: with nausea Qualified Code(s): R11.2 - Nausea with vomiting, unspecified Category: Medical Code(s): R11.10 - Vomiting, unspecified (7) Depressive disorder Current visit: Yes Status: Acute Category: Medical Code(s): F32.9 - Major depressive disorder, single episode, unspecified (8) Diabetes type 2, uncontrolled Current visit: Yes Status: Acute Category: Medical Code(s): E11.65 - Type 2 diabetes mellitus with hyperglycemia (9) Long-term insulin use Current visit: Yes Status: Acute Category: Medical Code(s): 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
[2018-10-15 06:25] LABS: Anion Gap 11.2 mEq/L (5-15); Calcium 8.4 mg/dL (8.5-10.1); Potassium 3.2 mmoL/L (3.5-5.1)
[2018-10-15 06:27] LABS: Basophils % 0.1 % (0.1-2.0); Eosinophils # 0.2 K/mm3 (0.0-0.4); Eosinophils % 2.6 % (0.1-12.0); Hematocrit 39.4 % (37.0-47.0); Hemoglobin 13.4 g/dL (12.2-16.2); Lymphocytes # 1.2 K/mm3 (0.7-4.5); Lymphocytes % 12.8 % (10-50); Mean Corpuscular Hemoglobin 29.5 pg (27.0-31.2); Mean Corpuscular Volume 86.9 fl (81-99); Mean Platelet Volume 9.1 fl (7.4-10.4); Monocytes # 0.6 K/mm3 (0.1-1.0); Monocytes % 6.2 % (1.7-9.3); Neutrophils # 7.1 K/mm3 (1.8-7.8); Neutrophils % 78.3 % (37.0-80.0); Platelet Count 179 K/mm3 (142-424); Red Blood Count 4.53 M/mm3 (4.20-5.40); Red Cell Distribution Width 14.7 % (11.5-17.5); White Blood Count 9.1 K/mm3 (4.8-10.8)
--- NOTE | 2018-10-15 08:16 | Progress Note ---
<Katlyn Nieves - Last Filed: 10/15/18 08:13> Internal Medicine - PN: Subj *Date: 10/15/18 *Time: 08:13 Interval history: Patient has just vomited a large amount after trying to eat breakfast. She states she is doing okay other than trying to eat food. She easily takes liquids without any problems. She denies pain anywhere. She states her breathing is fine. She has not ambulated but to the chair and bathroom. She has difficulty feeding herself due to the swelling in her hands and fingers. She had a normal stool yesterday. relates that they will need help when she goes home. See care management note. Exam Vital signs and Labs for Last 24 Hours: Temp Pulse Resp BP Pulse Ox 97.4 F L 98 H 16 128/62 91 L 10/15/18 08:00 10/15/18 08:00 10/15/18 08:00 10/15/18 08:00 10/15/18 08:00 Laboratory Results - last 24 hr 10/14/18 11:22: POC Glucose 209 H 10/14/18 16:41: POC Glucose 165 H 10/14/18 20:49: POC Glucose 182 H 10/15/18 05:00: POC Glucose 103 10/15/18 05:15: WBC 9.1, RBC 4.53, Hgb 13.4, Hct 39.4, MCV 86.9, MCH 29.5, MCHC 34.0, RDW 14.7, Plt Count 179, MPV 9.1, Neut % (Auto) 78.3, Lymph % (Auto) 12.8, [place] % (Auto) 6.2, Eos % (Auto) 2.6, Baso % (Auto) 0.1, Neut # (Auto) 7.1, Lymph # (Auto) 1.2, [place] # (Auto) 0.6, Eos # (Auto) 0.2, Baso # (Auto) 0.0 10/15/18 05:15: Sodium 143, Potassium 3.2 L, Chloride 109 H, Carbon Dioxide 26, Anion Gap 11.2, BUN 8 D, Creatinine 0.63, Estimated Creat Clear 174, Estimated GFR 97, Est GFR ( Amer) 117, Glucose 99, Calcium 8.4 L I & O for Last 24 hours: Intake & Output 10/12/18 10/13/18 10/14/18 10/15/18 11:59 11:59 11:59 11:59 Intake Total 1940 / 1940 4150 / 4150 4682 / 4682 1760 / 1760 Output Total 1400 / 1400 1250 / 1250 1700 / 1700 500 / 500 Balance 540 / 540 2900 / 2900 2982 / 2982 1260 / 1260 Weight 249 lb 6 oz 250 lb 2.995 oz 253 lb 3 oz Microbiology Reports for the Last 24 Hours: Microbiology 10/09/18 11:55 Blood Blood Culture - Final NO GROWTH AFTER 5 DAYS 10/09/18 11:55 Blood Blood Culture - Final NO GROWTH AFTER 5 DAYS - Constitutional no acute distress Comments: Sitting up in the chair at bedside. She has just vomited a large amount of yellow emesis - *Routine Respiratory Exam Present: CTA bilaterally (Anteriorly and posteriorly) - *Routine Cardiovascular Exam Present: RRR - *Routine Abdominal Exam Present: soft, normoactive bowel sounds. Absent: tenderness - *Routine Extremities Exam Absent: edema, calf tenderness - *Routine Neurological Exam Present: alert, oriented X3 Speech is clear and she answers questions readily Assessment and Plan (1) DKA (diabetic ketoacidoses) Current visit: Yes Status: Acute Qualifiers: Diabetes mellitus type: other specified (including [place]) Diabetes mellitus complication detail: without coma Qualified Code(s): E13.10 - Other specified diabetes mellitus with ketoacidosis without coma Category: Medical Code(s): E13.10 - Other specified diabetes mellitus with ketoacidosis without coma (2) Dehydration Current visit: Yes Status: Acute Category: Medical Code(s): E86.0 - Dehydration (3) Hypertension Current visit: Yes Status: Acute Category: Medical Code(s): I10 - Essential (primary) hypertension (4) Hyperlipidemia Current visit: Yes Status: Acute Category: Medical Code(s): E78.5 - Hyperlipidemia, unspecified (5) Diarrhea Current visit: Yes Status: Acute Qualifiers: Diarrhea type: unspecified type Qualified Code(s): R19.7 - Diarrhea, unspecified Category: Medical Code(s): R19.7 - Diarrhea, unspecified (6) Vomiting Current visit: Yes Status: Acute Qualifiers: Vomiting type: unspecified Vomiting Intractability: unspecified Nausea presence: with nausea Qualified Code(s): R11.2 - Nausea with vomiting, unspecified Category: Medical Code(s): R11.10 - Vomiting, unspecified (7) Depressive disorder Current visit: Yes Status: Acute Category: Medical Code(s): F32.9 - Major depressive disorder, single episode, unspecified (8) Diabetes type 2, uncontrolled Current visit: Yes Status: Acute Category: Medical Code(s): E11.65 - Type 2 diabetes mellitus with hyperglycemia (9) Long-term insulin use Current visit: Yes Status: Acute Category: Medical Code(s): Z79.4 - FPC (current) use of insulin (10) Non compliance w medication regimen Current visit: Yes Status: Acute Category: Medical Code(s): Z91.14 - Patient's other noncompliance with medication regimen (11) Hypokalemia Current visit: Yes Status: Acute Category: Medical Code(s): E87.6 - Hypokalemia (12) Enteritis due to Norovirus Current visit: Yes Status: Acute Category: Medical Code(s): A08.11 - Acute gastroenteropathy due to [place] agent - Assessment and plan all Dx Assessment and Plan for all problems:: Potassium is low again today. Will increase to twice daily. Patient needs to ambulate in room and hallway with assistance. Physical therapy has seen patient as well. Care management has also seen the patient. Please see note <Ricky Jones - Last Filed: 10/15/18 08:53> Exam Vital signs and Labs for Last 24 Hours: Temp Pulse Resp BP Pulse Ox 97.4 F L 98 H 16 128/62 91 L 10/15/18 08:00 10/15/18 08:00 10/15/18 08:00 10/15/18 08:00 10/15/18 08:00 Laboratory Results - last 24 hr 10/14/18 11:22: POC Glucose 209 H 10/14/18 16:41: POC Glucose 165 H 10/14/18 20:49: POC Glucose 182 H 10/15/18 05:00: POC Glucose 103 10/15/18 05:15: WBC 9.1, RBC 4.53, Hgb 13.4, Hct 39.4, MCV 86.9, MCH 29.5, MCHC 34.0, RDW 14.7, Plt Count 179, MPV 9.1, Neut % (Auto) 78.3, Lymph % (Auto) 12.8, [place] % (Auto) 6.2, Eos % (Auto) 2.6, Baso % (Auto) 0.1, Neut # (Auto) 7.1, Lymph # (Auto) 1.2, [place] # (Auto) 0.6, Eos # (Auto) 0.2, Baso # (Auto) 0.0 10/15/18 05:15: Sodium 143, Potassium 3.2 L, Chloride 109 H, Carbon Dioxide 26, Anion Gap 11.2, BUN 8 D, Creatinine 0.63, Estimated Creat Clear 174, Estimated GFR 97, Est GFR ( Amer) 117, Glucose 99, Calcium 8.4 L I & O for Last 24 hours: Intake & Output 10/12/18 10/13/18 10/14/18 10/15/18 23:59 23:59 23:59 23:59 Intake Total 2955 / 2955 4395 / 4395 3702 / 3702 220 / 220 Output Total 1600 / 1600 750 / 750 1500 / 1500 500 / 500 Balance 1355 / 1355 3645 / 3645 2202 / 2202 -280 / -280 Weight 249 lb 6 oz 250 lb 2.995 oz 253 lb 3 oz Microbiology Reports for the Last 24 Hours: Microbiology 10/09/18 11:55 Blood Blood Culture - Final NO GROWTH AFTER 5 DAYS 10/09/18 11:55 Blood Blood Culture - Final NO GROWTH AFTER 5 DAYS Assessment and Plan (1) DKA (diabetic ketoacidoses) Current visit: Yes Status: Acute Qualifiers: Diabetes mellitus type: other specified (including [place]IE) Diabetes mellitus complication detail: without coma Qualified Code(s): E13.10 - Other specified diabetes mellitus with ketoacidosis without coma Category: Medical Code(s): E13.10 - Other specified diabetes mellitus with ketoacidosis without coma (2) Dehydration Current visit: Yes Status: Acute Category: Medical Code(s): E86.0 - Dehydration (3) Hypertension Current visit: Yes Status: Acute Category: Medical Code(s): I10 - Essential (primary) hypertension (4) Hyperlipidemia Current visit: Yes Status: Acute Category: Medical Code(s): E78.5 - Hyperlipidemia, unspecified (5) Diarrhea Current visit: Yes Status: Acute Qualifiers: Diarrhea type: unspecified type Qualified Code(s): R19.7 - Diarrhea, unspecified Category: Medical Code(s): R19.7 - Diarrhea, unspecified (6) Vomiting Current visit: Yes Status: Acute Qualifiers: Vomiting type: unspecified Vomiting Intractability: unspecified Nausea presence: with nausea Qualified Code(s): R11.2 - Nausea with vomiting, unspecified Category: Medical Code(s): R11.10 - Vomiting, unspecified (7) Depressive disorder Current visit: Yes Status: Acute Category: Medical Code(s): F32.9 - Major depressive disorder, single episode, unspecified (8) Diabetes type 2, uncontrolled Current visit: Yes Status: Acute Category: Medical Code(s): E11.65 - Type 2 diabetes mellitus with hyperglycemia (9) Long-term insulin use Current visit: Yes Status: Acute Category: Medical Code(s): Z79.4 - FPC (current) use of insulin (10) Non compliance w medication regimen Current visit: Yes Status: Acute Category: Medical Code(s): Z91.14 - Patient's other noncompliance with medication regimen (11) Hypokalemia Current visit: Yes Status: Acute Category: Medical Code(s): E87.6 - Hypokalemia (12) Enteritis due to Norovirus Current visit: Yes Status: Acute Category: Medical Code(s): A08.11 - Acute gastroenteropathy due to [place] agent - Assessment and plan all Dx Assessment and Plan for all problems:: Saw patient, agree with above note. She does not feel well today, will add Reglan.
[2018-10-15 09:02] LABS: Albumin Level 2.1 gm/dL (3.4-5.0); Bilirubin,Direct 0.1 mg/dL (0.0-0.2); Bilirubin,Indirect 0.3 mg/dL (0.0-0.9); Bilirubin,Total 0.4 mg/dL (0.2-1.0); Total Protein,Serum 5.2 gm/dL (6.4-8.2)
[2018-10-16 06:37] LABS: Basophils % 0.3 % (0.1-2.0); Eosinophils % 0.4 % (0.1-12.0); Hematocrit 38.7 % (37.0-47.0); Hemoglobin 13.1 g/dL (12.2-16.2); Lymphocytes # 1.2 K/mm3 (0.7-4.5); Lymphocytes % 11.2 % (10-50); Mean Corpuscular HGB Conc 33.8 g/dL (31.8-35.4); Mean Corpuscular Hemoglobin 29.4 pg (27.0-31.2); Monocytes # 1.2 K/mm3 (0.1-1.0); Monocytes % 11.4 % (1.7-9.3); Neutrophils # 7.8 K/mm3 (1.8-7.8); Neutrophils % 76.6 % (37.0-80.0); Platelet Count 185 K/mm3 (142-424); Red Blood Count 4.45 M/mm3 (4.20-5.40); Red Cell Distribution Width 14.7 % (11.5-17.5); White Blood Count 10.2 K/mm3 (4.8-10.8)
[2018-10-16 06:47] LABS: Anion Gap 10.5 mEq/L (5-15); Calcium 8.2 mg/dL (8.5-10.1); Potassium 3.5 mmoL/L (3.5-5.1)
--- NOTE | 2018-10-16 08:19 | Progress Note ---
<Katlyn Nieves - Last Filed: 10/16/18 08:16> Internal Medicine - PN: Subj *Date: 10/16/18 *Time: 08:16 Interval history: Patient states she is doing better today. She denies nausea and has not vomited since yesterday. She enjoys her full liquid diet. He states her bowels have not moved. She denies chest pain and shortness of breath. She states she has not ambulated much. She continues to have difficulty with feeding herself due to the edema in her hands and fingers. Exam Vital signs and Labs for Last 24 Hours: Temp Pulse Resp BP Pulse Ox 100.2 F H 110 H 20 152/60 H 97 10/16/18 04:00 10/16/18 04:00 10/16/18 04:00 10/16/18 04:00 10/16/18 04:00 Laboratory Results - last 24 hr 10/15/18 05:56: Total Bilirubin 0.4, Direct Bilirubin 0.1, Indirect Bilirubin 0.3, AST 21, ALT 22, Alkaline Phosphatase 75, Total Protein 5.2 L, Albumin 2.1 L , Amylase 6 L, Lipase 46 L 10/15/18 11:58: POC Glucose 110 10/15/18 18:17: POC Glucose 377 H* 10/15/18 21:58: POC Glucose 268 H 10/16/18 05:48: WBC 10.2, RBC 4.45, Hgb 13.1, Hct 38.7, MCV 87.0, MCH 29.4, MCHC 33.8, RDW 14.7, Plt Count 185, MPV 9.0, Neut % (Auto) 76.6, Lymph % (Auto) 11.2, [place] % (Auto) 11.4 H, Eos % (Auto) 0.4, Baso % (Auto) 0.3, Neut # (Auto) 7.8, Lymph # (Auto) 1.2, [place] # (Auto) 1.2 H, Eos # (Auto) 0.0, Baso # (Auto) 0.0 10/16/18 05:48: Sodium 141, Potassium 3.5, Chloride 106, Carbon Dioxide 28, Anion Gap 10.5, BUN 7, Creatinine 0.70, Estimated Creat Clear 158, Estimated GFR 86, Est GFR ( Amer) 104, Glucose 133 H, Calcium 8.2 L 10/16/18 05:58: POC Glucose 136 H I & O for Last 24 hours: Intake & Output 10/13/18 10/14/18 10/15/18 10/16/18 11:59 11:59 11:59 11:59 Intake Total 4150 / 4150 4682 / 4682 1979 / 1979 920 / 920 Output Total 1250 / 1250 1700 / 1700 500 / 500 600 / 600 Balance 2900 / 2900 2982 / 2982 1480 / 1480 320 / 320 Weight 249 lb 6 oz 250 lb 2.995 oz 253 lb 3 oz 254 lb 9 oz - Constitutional no acute distress Comments: Sitting in chair eating breakfast. Noted patient feeding herself and she did well but is just slow. - *Routine Respiratory Exam Present: CTA bilaterally (Anteriorly and posteriorly) - *Routine Cardiovascular Exam Present: RRR - *Routine Abdominal Exam Present: soft, normoactive bowel sounds. Absent: tenderness - *Routine Extremities Exam Absent: edema - *Routine Neurological Exam Present: alert, normal speech Memory deficit Assessment and Plan (1) DKA (diabetic ketoacidoses) Current visit: Yes Status: Acute Qualifiers: Diabetes mellitus type: other specified (including [place]ORIE) Diabetes mellitus complication detail: without coma Qualified Code(s): E13.10 - Other specified diabetes mellitus with ketoacidosis without coma Category: Medical Code(s): E13.10 - Other specified diabetes mellitus with ketoacidosis without coma (2) Dehydration Current visit: Yes Status: Acute Category: Medical Code(s): E86.0 - Dehydration (3) Hypertension Current visit: Yes Status: Acute Category: Medical Code(s): I10 - Essential (primary) hypertension (4) Hyperlipidemia Current visit: Yes Status: Acute Category: Medical Code(s): E78.5 - Hyperlipidemia, unspecified (5) Diarrhea Current visit: Yes Status: Acute Qualifiers: Diarrhea type: unspecified type Qualified Code(s): R19.7 - Diarrhea, unspecified Category: Medical Code(s): R19.7 - Diarrhea, unspecified (6) Vomiting Current visit: Yes Status: Acute Qualifiers: Vomiting type: unspecified Vomiting Intractability: unspecified Nausea presence: with nausea Qualified Code(s): R11.2 - Nausea with vomiting, unspecified Category: Medical Code(s): R11.10 - Vomiting, unspecified (7) Depressive disorder Current visit: Yes Status: Acute Category: Medical Code(s): F32.9 - Major depressive disorder, single episode, unspecified (8) Diabetes type 2, uncontrolled Current visit: Yes Status: Acute Category: Medical Code(s): E11.65 - Type 2 diabetes mellitus with hyperglycemia (9) Long-term insulin use Current visit: Yes Status: Acute Category: Medical Code(s): Z79.4 - USP (current) use of insulin (10) Non compliance w medication regimen Current visit: Yes Status: Acute Category: Medical Code(s): Z91.14 - Patient's other noncompliance with medication regimen (11) Hypokalemia Current visit: Yes Status: Acute Category: Medical Code(s): E87.6 - Hypokalemia (12) Enteritis due to Norovirus Current visit: Yes Status: Acute Category: Medical Code(s): A08.11 - Acute gastroenteropathy due to [place] agent - Assessment and plan all Dx Assessment and Plan for all problems:: Continue with current care. Patient needs to ambulate. Possibly home soon. <Ricky Jones - Last Filed: 10/16/18 08:50> Exam Vital signs and Labs for Last 24 Hours: Temp Pulse Resp BP Pulse Ox 99.0 F 102 H 17 103/47 L 98 10/16/18 08:00 10/16/18 08:00 10/16/18 08:00 10/16/18 08:00 10/16/18 08:00 Laboratory Results - last 24 hr 10/15/18 05:56: Total Bilirubin 0.4, Direct Bilirubin 0.1, Indirect Bilirubin 0.3, AST 21, ALT 22, Alkaline Phosphatase 75, Total Protein 5.2 L, Albumin 2.1 L , Amylase 6 L, Lipase 46 L 10/15/18 11:58: POC Glucose 110 10/15/18 18:17: POC Glucose 377 H* 10/15/18 21:58: POC Glucose 268 H 10/16/18 05:48: WBC 10.2, RBC 4.45, Hgb 13.1, Hct 38.7, MCV 87.0, MCH 29.4, MCHC 33.8, RDW 14.7, Plt Count 185, MPV 9.0, Neut % (Auto) 76.6, Lymph % (Auto) 11.2, [place] % (Auto) 11.4 H, Eos % (Auto) 0.4, Baso % (Auto) 0.3, Neut # (Auto) 7.8, Lymph # (Auto) 1.2, [place] # (Auto) 1.2 H, Eos # (Auto) 0.0, Baso # (Auto) 0.0 10/16/18 05:48: Sodium 141, Potassium 3.5, Chloride 106, Carbon Dioxide 28, Anion Gap 10.5, BUN 7, Creatinine 0.70, Estimated Creat Clear 158, Estimated GFR 86, Est GFR ( Amer) 104, Glucose 133 H, Calcium 8.2 L 10/16/18 05:58: POC Glucose 136 H Vital Signs - 24 hr 10/15/18 16:00 10/15/18 20:00 10/16/18 00:00 Temperature 102.8 F H 100.3 F H 99.3 F Pulse Rate [Left Brachial] 122 H 117 H Pulse Rate [Right Radial] Respiratory Rate 20 22 Blood Pressure [Left Arm] Blood Pressure [Right Arm] 135/59 L 116/59 L 02 Sat by Pulse Oximetry 94 L 96 10/16/18 04:00 10/16/18 08:00 Temperature 100.2 F H 99.0 F Pulse Rate [Left Brachial] 102 H Pulse Rate [Right Radial] 110 H Respiratory Rate 20 17 Blood Pressure [Left Arm] 103/47 L Blood Pressure [Right Arm] 152/60 H 02 Sat by Pulse Oximetry 97 98 I & O for Last 24 hours: Intake & Output 10/13/18 10/14/18 10/15/18 10/16/18 23:59 23:59 23:59 23:59 Intake Total 4395 / 4395 3702 / 3702 1240 / 1240 540 / 540 Output Total 750 / 750 1500 / 1500 800 / 800 300 / 300 Balance 3645 / 3645 2202 / 2202 440 / 440 240 / 240 Weight 249 lb 6 oz 250 lb 2.995 oz 253 lb 3 oz 254 lb 9 oz Assessment and Plan (1) DKA (diabetic ketoacidoses) Current visit: Yes Status: Acute Qualifiers: Diabetes mellitus type: other specified (including VALORIE) Diabetes mellitus complication detail: without coma Qualified Code(s): E13.10 - Other specified diabetes mellitus with ketoacidosis without coma Category: Medical Code(s): E13.10 - Other specified diabetes mellitus with ketoacidosis without coma (2) Dehydration Current visit: Yes Status: Acute Category: Medical Code(s): E86.0 - Dehydration (3) Hypertension Current visit: Yes Status: Acute Category: Medical Code(s): I10 - Essential (primary) hypertension (4) Hyperlipidemia Current visit: Yes Status: Acute Category: Medical Code(s): E78.5 - Hyperlipidemia, unspecified (5) Diarrhea Current visit: Yes Status: Acute Qualifiers: Diarrhea type: unspecified type Qualified Code(s): R19.7 - Diarrhea, unspecified Category: Medical Code(s): R19.7 - Diarrhea, unspecified (6) Vomiting Current visit: Yes Status: Acute Qualifiers: Vomiting type: unspecified Vomiting Intractability: unspecified Nausea presence: with nausea Qualified Code(s): R11.2 - Nausea with vomiting, unspecified Category: Medical Code(s): R11.10 - Vomiting, unspecified (7) Depressive disorder Current visit: Yes Status: Acute Category: Medical Code(s): F32.9 - Major depressive disorder, single episode, unspecified (8) Diabetes type 2, uncontrolled Current visit: Yes Status: Acute Category: Medical Code(s): E11.65 - Type 2 diabetes mellitus with hyperglycemia (9) Long-term insulin use Current visit: Yes Status: Acute Category: Medical Code(s): Z79.4 - USP (current) use of insulin (10) Non compliance w medication regimen Current visit: Yes Status: Acute Category: Medical Code(s): Z91.14 - Patient's other noncompliance with medication regimen (11) Hypokalemia Current visit: Yes Status: Acute Category: Medical Code(s): E87.6 - Hypokalemia (12) Enteritis due to Norovirus Current visit: Yes Status: Acute Category: Medical Code(s): A08.11 - Acute gastroenteropathy due to [place] agent (13) Sepsis Current visit: Yes Status: Acute Category: Medical Code(s): A41.9 - Sepsis, unspecified organism (14) Fever Current visit: Yes Status: Acute Category: Medical Code(s): R50.9 - Fever, unspecified - Assessment and plan all Dx Assessment and Plan for all problems:: Saw patient, unclear why she had fever yesterday, will check UA and CXR.
[2018-10-16 12:58] LABS: Microscopic, Urine URINE MICROSCOPIC (MICROSCOPIC)
[2018-10-16 13:00] LABS: Appearance,Urine CLOUDY (Clear); Blood, Urine TRACE-I (Negative); Color,Urine DK YELLOW (Yellow); Glucose,Urine (UA) 2+ (Negative); Ketones,Urine TRACE (Negative); Leukocyte Esterase,Urine 2+ (Negative); PH,Urine 6.5 (5.0-8.5); Protein,Urine 1+ (Negative); Urobilinogen,Urine 0.2 EU/dl (0.2)
[2018-10-16 13:23] LABS: Bilirubin,Urine Negative (Negative)
[2018-10-16 13:28] LABS: Bacteria,Urine 1+ /lpf; WBC,Urine 50-100 #/hpf (0-3)
[2018-10-16 13:31] LABS: Mucus,Urine 1+ /lpf
[2018-10-17 06:53] LABS: Anion Gap 9.7 mEq/L (5-15); Calcium 8.6 mg/dL (8.5-10.1); Potassium 3.7 mmoL/L (3.5-5.1)
[2018-10-17 06:55] LABS: Basophils % 0.2 % (0.1-2.0); Eosinophils # 0.2 K/mm3 (0.0-0.4); Eosinophils % 1.2 % (0.1-12.0); Hematocrit 41.7 % (37.0-47.0); Hemoglobin 13.4 g/dL (12.2-16.2); Lymphocytes # 1.5 K/mm3 (0.7-4.5); Lymphocytes % 12.2 % (10-50); Mean Corpuscular HGB Conc 32.3 g/dL (31.8-35.4); Mean Corpuscular Hemoglobin 28.8 pg (27.0-31.2); Mean Corpuscular Volume 89.1 fl (81-99); Mean Platelet Volume 10.1 fl (7.4-10.4); Monocytes # 1.1 K/mm3 (0.1-1.0); Neutrophils # 9.5 K/mm3 (1.8-7.8); Neutrophils % 77.3 % (37.0-80.0); Platelet Count 187 K/mm3 (142-424); Red Blood Count 4.68 M/mm3 (4.20-5.40); Red Cell Distribution Width 14.5 % (11.5-17.5); White Blood Count 12.3 K/mm3 (4.8-10.8)
--- NOTE | 2018-10-17 07:56 | Progress Note ---
<Katlyn Nieves - Last Filed: 10/17/18 07:53> Internal Medicine - PN: Subj *Date: 10/17/18 *Time: 07:53 Interval history: Patient states her left leg. Stinging going all the way. She notes more redness and swelling of the left leg. She denies chest pain and shortness of breath. She is taking her full liquid diet without problems now. She has had no nausea and no vomiting. Bowels have moved a small amount. She is voiding without difficulty. Patient did ambulate in the hallway yesterday. White count is elevated this a.m. She continues to run a fever. UA indicates a UTI. Chest x-ray revealed new nodule or possible infiltrate Exam Vital signs and Labs for Last 24 Hours: Temp Pulse Resp BP Pulse Ox 98.6 F 94 H 16 134/63 97 10/17/18 04:00 10/17/18 04:00 10/17/18 04:00 10/17/18 04:00 10/17/18 04:00 Laboratory Results - last 24 hr 10/16/18 11:00: POC Glucose 246 H 10/16/18 11:50: Urine Color Dk yellow, Urine Appearance Cloudy, Urine pH 6.5, Ur Specific [place] 1.020, Urine Protein 1+, Urine Glucose (UA) 2+, Urine Ketones Trace, Urine Blood Trace-i, Urine Nitrate Positive, Urine Bilirubin Negative, Urine Urobilinogen 0.2, Ur Leukocyte Esterase 2+ A, Urine RBC None, Urine WBC 50-100, Ur Squamous Epith Cells 3-5, Urine Bacteria 1+, Urine Mucus 1+ 10/16/18 17:00: POC Glucose 241 H 10/16/18 20:54: POC Glucose 221 H 10/17/18 05:46: WBC 12.3 H, RBC 4.68, Hgb 13.4, Hct 41.7, MCV 89.1, MCH 28.8, MCHC 32.3, RDW 14.5, Plt Count 187, MPV 10.1, Neut % (Auto) 77.3, Lymph % (Auto) 12.2, [place] % (Auto) 9.0, Eos % (Auto) 1.2, Baso % (Auto) 0.2, Neut # (Auto) 9.5 H, Lymph # (Auto) 1.5, [place] # (Auto) 1.1 H, Eos # (Auto) 0.2, Baso # (Auto) 0.0 10/17/18 05:46: Sodium 137, Potassium 3.7, Chloride 102, Carbon Dioxide 29, Anion Gap 9.7, BUN 7, Creatinine 0.69, Estimated Creat Clear 82, Estimated GFR 87, Est GFR ( Amer) 105, Glucose 117 H, Calcium 8.6 10/17/18 05:59: POC Glucose 107 I & O for Last 24 hours: Intake & Output 10/14/18 10/15/18 10/16/18 10/17/18 11:59 11:59 11:59 11:59 Intake Total 4682 / 4682 1980 / 1980 1560 / 1560 1202 / 1202 Output Total 1700 / 1700 500 / 500 600 / 600 700 / 700 Balance 2982 / 2982 1480 / 1480 960 / 960 502 / 502 Weight 250 lb 2.995 oz 253 lb 3 oz 254 lb 9 oz 257 lb 9 oz Radiology Reports for the Last 24 Hours: repeat chest x-ray IMPRESSION: 2 cm parenchymal opacity left lung base could be due to an area of focal consolidation or developing nodule. Consider chest CT bilaterally - Constitutional no acute distress Comments: Sitting up in the bed and has completed her breakfast. She appears comfortable. - *Routine Respiratory Exam Present: CTA bilaterally (Anteriorly and posteriorly) - *Routine Cardiovascular Exam Present: RRR - *Routine Abdominal Exam Present: soft, normoactive bowel sounds. Absent: tenderness - *Routine Extremities Exam Present: edema (The right leg.), calf tenderness Comments: Left lower leg with erythema anteriorly. Calf tender to palpation. No palpable masses or cords. Pretibial edema. Left dorsal foot wound is dry. - *Routine Neurological Exam Present: alert, oriented X3 Smiling on occasion Assessment and Plan (1) DKA (diabetic ketoacidoses) Current visit: Yes Status: Acute Qualifiers: Diabetes mellitus type: other specified (including VALORIE) Diabetes mellitus complication detail: without coma Qualified Code(s): E13.10 - Other specified diabetes mellitus with ketoacidosis without coma Category: Medical Code(s): E13.10 - Other specified diabetes mellitus with ketoacidosis without coma (2) Dehydration Current visit: Yes Status: Acute Category: Medical Code(s): E86.0 - Dehydration (3) Hypertension Current visit: Yes Status: Acute Category: Medical Code(s): I10 - Essential (primary) hypertension (4) Hyperlipidemia Current visit: Yes Status: Acute Category: Medical Code(s): E78.5 - Hyperlipidemia, unspecified (5) Diarrhea Current visit: Yes Status: Acute Qualifiers: Diarrhea type: unspecified type Qualified Code(s): R19.7 - Diarrhea, unspecified Category: Medical Code(s): R19.7 - Diarrhea, unspecified (6) Vomiting Current visit: Yes Status: Acute Qualifiers: Vomiting type: unspecified Vomiting Intractability: unspecified Nausea presence: with nausea Qualified Code(s): R11.2 - Nausea with vomiting, unspecified Category: Medical Code(s): R11.10 - Vomiting, unspecified (7) Depressive disorder Current visit: Yes Status: Acute Category: Medical Code(s): F32.9 - Major depressive disorder, single episode, unspecified (8) Diabetes type 2, uncontrolled Current visit: Yes Status: Acute Category: Medical Code(s): E11.65 - Type 2 diabetes mellitus with hyperglycemia (9) Long-term insulin use Current visit: Yes Status: Acute Category: Medical Code(s): 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 (10) Non compliance w medication regimen Current visit: Yes Status: Acute Category: Medical Code(s): Z91.14 - Patient's other noncompliance with medication regimen (11) Hypokalemia Current visit: Yes Status: Acute Category: Medical Code(s): E87.6 - Hypokalemia (12) Enteritis due to Norovirus Current visit: Yes Status: Acute Category: Medical Code(s): A08.11 - Acute gastroenteropathy due to [place] agent (13) Sepsis Current visit: Yes Status: Acute Category: Medical Code(s): A41.9 - Sepsis, unspecified organism (14) Fever Current visit: Yes Status: Acute Category: Medical Code(s): R50.9 - Fever, unspecified (15) Urinary tract infection Current visit: Yes Status: Acute Category: Medical Code(s): N39.0 - Urinary tract infection, site not specified (16) Cellulitis of leg, left Current visit: Yes Status: Acute Category: Medical Code(s): L03.116 - Cellulitis of left lower limb (17) Wound of left foot Current visit: Yes Status: Acute Category: Medical Code(s): S91.302A - Unspecified open wound, left foot, initial encounter - Assessment and plan all Dx Assessment and Plan for all problems:: Urine culture is pending. Will start on additional antibiotic. Will obtain an ultrasound of the left lower extremity. To have a repeat chest x-ray this a.m. <Ricky Jones - Last Filed: 10/17/18 08:56> Exam Vital signs and Labs for Last 24 Hours: Temp Pulse Resp BP Pulse Ox 99.1 F 107 H 18 143/77 H 98 10/17/18 08:00 10/17/18 08:00 10/17/18 08:00 10/17/18 08:00 10/17/18 08:00 Laboratory Results - last 24 hr 10/16/18 11:00: POC Glucose 246 H 10/16/18 11:50: Urine Color Dk yellow, Urine Appearance Cloudy, Urine pH 6.5, Ur Specific [place] 1.020, Urine Protein 1+, Urine Glucose (UA) 2+, Urine Ketones Trace, Urine Blood Trace-i, Urine Nitrate Positive, Urine Bilirubin Negative, Urine Urobilinogen 0.2, Ur Leukocyte Esterase 2+ A, Urine RBC None, Urine WBC 50-100, Ur Squamous Epith Cells 3-5, Urine Bacteria 1+, Urine Mucus 1+ 10/16/18 17:00: POC Glucose 241 H 10/16/18 20:54: POC Glucose 221 H 10/17/18 05:46: WBC 12.3 H, RBC 4.68, Hgb 13.4, Hct 41.7, MCV 89.1, MCH 28.8, MCHC 32.3, RDW 14.5, Plt Count 187, MPV 10.1, Neut % (Auto) 77.3, Lymph % (Auto) 12.2, [place] % (Auto) 9.0, Eos % (Auto) 1.2, Baso % (Auto) 0.2, Neut # (Auto) 9.5 H, Lymph # (Auto) 1.5, [place] # (Auto) 1.1 H, Eos # (Auto) 0.2, Baso # (Auto) 0.0 10/17/18 05:46: Sodium 137, Potassium 3.7, Chloride 102, Carbon Dioxide 29, Anion Gap 9.7, BUN 7, Creatinine 0.69, Estimated Creat Clear 82, Estimated GFR 87, Est GFR ( Amer) 105, Glucose 117 H, Calcium 8.6 10/17/18 05:59: POC Glucose 107 I & O for Last 24 hours: Intake & Output 10/14/18 10/15/18 10/16/18 10/17/18 23:59 23:59 23:59 23:59 Intake Total 3702 / 3702 1240 / 1240 1642 / 1642 920 / 920 Output Total 1500 / 1500 800 / 800 600 / 600 400 / 400 Balance 2202 / 2202 440 / 440 1042 / 1042 520 / 520 Weight 250 lb 2.995 oz 253 lb 3 oz 254 lb 9 oz 257 lb 9 oz Microbiology Reports for the Last 24 Hours: Microbiology 10/16/18 11:50 Urine,Clean Catch Urine Culture - Preliminary Gram Negative Rods Assessment and Plan (1) DKA (diabetic ketoacidoses) Current visit: Yes Status: Acute Qualifiers: Diabetes mellitus type: other specified (including VALORIE) Diabetes mellitus complication detail: without coma Qualified Code(s): E13.10 - Other specified diabetes mellitus with ketoacidosis without coma Category: Medical Code(s): E13.10 - Other specified diabetes mellitus with ketoacidosis without coma (2) Dehydration Current visit: Yes Status: Acute Category: Medical Code(s): E86.0 - Dehydration (3) Hypertension Current visit: Yes Status: Acute Category: Medical Code(s): I10 - Essential (primary) hypertension (4) Hyperlipidemia Current visit: Yes Status: Acute Category: Medical Code(s): E78.5 - Hyperlipidemia, unspecified (5) Diarrhea Current visit: Yes Status: Acute Qualifiers: Diarrhea type: unspecified type Qualified Code(s): R19.7 - Diarrhea, unspecified Category: Medical Code(s): R19.7 - Diarrhea, unspecified (6) Vomiting Current visit: Yes Status: Acute Qualifiers: Vomiting type: unspecified Vomiting Intractability: unspecified Nausea presence: with nausea Qualified Code(s): R11.2 - Nausea with vomiting, unspecified Category: Medical Code(s): R11.10 - Vomiting, unspecified (7) Depressive disorder Current visit: Yes Status: Acute Category: Medical Code(s): F32.9 - Major depressive disorder, single episode, unspecified (8) Diabetes type 2, uncontrolled Current visit: Yes Status: Acute Category: Medical Code(s): E11.65 - Type 2 diabetes mellitus with hyperglycemia (9) Long-term insulin use Current visit: Yes Status: Acute Category: Medical Code(s): Z79.4 - longterm (current) use of insulin (10) Non compliance w medication regimen Current visit: Yes Status: Acute Category: Medical Code(s): Z91.14 - Patient's other noncompliance with medication regimen (11) Hypokalemia Current visit: Yes Status: Acute Category: Medical Code(s): E87.6 - Hypokalemia (12) Enteritis due to Norovirus Current visit: Yes Status: Acute Category: Medical Code(s): A08.11 - Acute gastroenteropathy due to [place] agent (13) Sepsis Current visit: Yes Status: Acute Category: Medical Code(s): A41.9 - Sepsis, unspecified organism (14) Fever Current visit: Yes Status: Acute Category: Medical Code(s): R50.9 - Fever, unspecified (15) Urinary tract infection Current visit: Yes Status: Acute Category: Medical Code(s): N39.0 - Urinary tract infection, site not specified (16) Cellulitis of leg, left Current visit: Yes Status: Acute Category: Medical Code(s): L03.116 - Cellulitis of left lower limb (17) Wound of left foot Current visit: Yes Status: Acute Category: Medical Code(s): S91.302A - Unspecified open wound, left foot, initial encounter - Assessment and plan all Dx Assessment and Plan for all problems:: Saw patient, agree with above note.
--- NOTE | 2018-10-17 08:48 | Non-Invasive Vascular Report ---
"Venous Exam Indications: 729.5 Pain in limb. Edema IMPRESSIONS 1. There is no evidence of significant Reflux. 2. No evidence of deep or superficial vein thrombosis involving the left lower extremity Left lower extremity venous duplex evaluation. Doppler flow study including spectral analysis, color and gomes scale imaging. Location: Bedside. Patient status: Inpatient. Tables: Venous flow and imaging: + +-------+ + |Location |Overall|Flow properties | + +-------+ + |Left common femoral |Patent |Normal phasicity; spontaneous; | | | |normal augmentation; compressible | + +-------+ + |Left saphenofemoral junction|Patent |Compressible | + +-------+ + |Left profunda femoral |Patent |Compressible | + +-------+ + |Left femoral |Patent |Normal phasicity; spontaneous; | | | |normal augmentation; compressible | + +-------+ + |Left greater saphenous |Patent |Normal phasicity; spontaneous; | | | |normal augmentation; compressible | + +-------+ + |Left popliteal |Patent |Normal phasicity; spontaneous; | | | |normal augmentation; compressible | + +-------+ + |Left posterior tibial |Patent |Compressible | + +-------+ + |Left peroneal |Patent |Compressible | + +-------+ + |Left gastrocnemius |Patent |Compressible | + +-------+ + |Left soleal |Patent |Compressible | + +-------+ + (Report amended ) Electronically signed by: Shayne Interiano [id number]"
--- NOTE | 2018-10-18 08:21 | Progress Note ---
<Kimberly Alvarez - Last Filed: 10/18/18 08:17> Internal Medicine - PN: Subj *Date: 10/18/18 *Time: 08:17 Interval history: Patient states she is feeling well today. She states she is hungry and would like something more than what she is been getting to eat. She states she is having a craving for eggs and toast this morning. She denies any nausea, abdominal pain, or vomiting. She states she slept well last night. Exam Vital signs and Labs for Last 24 Hours: Temp Pulse Resp BP Pulse Ox 98.1 F 87 16 102/48 L 96 10/18/18 04:00 10/18/18 04:00 10/18/18 04:00 10/18/18 04:00 10/18/18 04:00 Laboratory Results - last 24 hr 10/17/18 11:32: POC Glucose 231 H 10/17/18 16:35: POC Glucose 202 H 10/17/18 20:03: POC Glucose 203 H 10/18/18 06:04: POC Glucose 90 I & O for Last 24 hours: Intake & Output 10/15/18 10/16/18 10/17/18 10/18/18 11:59 11:59 11:59 11:59 Intake Total 1980 / 1979 1560 / 1560 202 / 2021 1360 / 1360 Output Total 500 / 500 600 / 600 1200 / 1200 1000 / 1000 Balance 1480 / 1480 960 / 960 822 / 822 360 / 360 Weight 253 lb 3 oz 254 lb 9 oz 257 lb 9 oz 258 lb 3 oz Microbiology Reports for the Last 24 Hours: Microbiology 10/17/18 10:55 Foot,Left - Wound Gram Stain - Final 10/17/18 10:55 Foot,Left - Wound Wound Culture - Preliminary Gram Positive Cocci 10/16/18 11:50 Urine,Clean Catch Urine Culture - Preliminary Gram Negative Rods Radiology Reports for the Last 24 Hours: CXR - Improvement in left basilar atelectasis or infiltrate Venous Doppler 1. There is no evidence of significant Reflux. 2. No evidence of deep or superficial vein thrombosis involving the left lower extremity - Constitutional no acute distress - *Routine Respiratory Exam Present: CTA bilaterally - *Routine Cardiovascular Exam Present: RRR - *Routine Abdominal Exam Present: soft, normoactive bowel sounds. Absent: tenderness - *Routine Extremities Exam Present: edema (bilateral LE's). Absent: cyanosis, clubbing Assessment and Plan (1) DKA (diabetic ketoacidoses) Current visit: Yes Status: Acute Qualifiers: Diabetes mellitus type: other specified (including VALORIE) Diabetes mellitus complication detail: without coma Qualified Code(s): E13.10 - Other specified diabetes mellitus with ketoacidosis without coma Category: Medical Code(s): E13.10 - Other specified diabetes mellitus with ketoacidosis without coma (2) Dehydration Current visit: Yes Status: Acute Category: Medical Code(s): E86.0 - Dehydration (3) Hypertension Current visit: Yes Status: Acute Category: Medical Code(s): I10 - Essential (primary) hypertension (4) Hyperlipidemia Current visit: Yes Status: Acute Category: Medical Code(s): E78.5 - Hyperlipidemia, unspecified (5) Diarrhea Current visit: Yes Status: Acute Qualifiers: Diarrhea type: unspecified type Qualified Code(s): R19.7 - Diarrhea, unspecified Category: Medical Code(s): R19.7 - Diarrhea, unspecified (6) Vomiting Current visit: Yes Status: Acute Qualifiers: Vomiting type: unspecified Vomiting Intractability: unspecified Nausea presence: with nausea Qualified Code(s): R11.2 - Nausea with vomiting, unspecified Category: Medical Code(s): R11.10 - Vomiting, unspecified (7) Depressive disorder Current visit: Yes Status: Acute Category: Medical Code(s): F32.9 - Major depressive disorder, single episode, unspecified (8) Diabetes type 2, uncontrolled Current visit: Yes Status: Acute Category: Medical Code(s): E11.65 - Type 2 diabetes mellitus with hyperglycemia (9) Long-term insulin use Current visit: Yes Status: Acute Category: Medical Code(s): Z79.4 - retirement (current) use of insulin (10) Non compliance w medication regimen Current visit: Yes Status: Acute Category: Medical Code(s): Z91.14 - Patient's other noncompliance with medication regimen (11) Hypokalemia Current visit: Yes Status: Acute Category: Medical Code(s): E87.6 - Hypokalemia (12) Enteritis due to Norovirus Current visit: Yes Status: Acute Category: Medical Code(s): A08.11 - Acute gastroenteropathy due to [place] agent (13) Sepsis Current visit: Yes Status: Acute Category: Medical Code(s): A41.9 - Sepsis, unspecified organism (14) Fever Current visit: Yes Status: Acute Category: Medical Code(s): R50.9 - Fever, unspecified (15) Urinary tract infection Current visit: Yes Status: Acute Category: Medical Code(s): N39.0 - Urinary tract infection, site not specified (16) Cellulitis of leg, left Current visit: Yes Status: Acute Category: Medical Code(s): L03.116 - Cellulitis of left lower limb (17) Wound of left foot Current visit: Yes Status: Acute Category: Medical Code(s): S91.302A - Unspecified open wound, left foot, initial encounter - Assessment and plan all Dx Assessment and Plan for all problems:: Still awaiting left foot wound culture and urine culture. Patient has been started on antibiotics. Chest x-ray has improved. Will discuss further care with Dr. Jones as well as advancing patient's diet. <Ricky Jones - Last Filed: 10/18/18 08:55> Internal Medicine - PN: Subj *Date: 10/18/18 *Time: 08:54 Exam Vital signs and Labs for Last 24 Hours: Temp Pulse Resp BP Pulse Ox 98.9 F 110 H 17 123/80 97 10/18/18 08:00 10/18/18 08:00 10/18/18 08:00 10/18/18 08:00 10/18/18 08:00 Laboratory Results - last 24 hr 10/17/18 11:32: POC Glucose 231 H 10/17/18 16:35: POC Glucose 202 H 10/17/18 20:03: POC Glucose 203 H 10/18/18 06:04: POC Glucose 90 I & O for Last 24 hours: Intake & Output 10/15/18 10/16/18 10/17/18 10/18/18 23:59 23:59 23:59 23:59 Intake Total 1240 / 1240 1642 / 1642 2180 / 2180 800 / 800 Output Total 800 / 800 600 / 600 1700 / 1900 200 / 200 Balance 440 / 440 1042 / 1042 480 / 280 600 / 600 Weight 253 lb 3 oz 254 lb 9 oz 257 lb 9 oz 258 lb 3 oz Microbiology Reports for the Last 24 Hours: Microbiology 10/17/18 10:55 Foot,Left - Wound Gram Stain - Final 10/17/18 10:55 Foot,Left - Wound Wound Culture - Preliminary Gram Positive Cocci 10/16/18 11:50 Urine,Clean Catch Urine Culture - Preliminary Gram Negative Rods Assessment and Plan (1) DKA (diabetic ketoacidoses) Current visit: Yes Status: Acute Qualifiers: Diabetes mellitus type: other specified (including VALORIE) Diabetes mellitus complication detail: without coma Qualified Code(s): E13.10 - Other specified diabetes mellitus with ketoacidosis without coma Category: Medical Code(s): E13.10 - Other specified diabetes mellitus with ketoacidosis without coma (2) Dehydration Current visit: Yes Status: Acute Category: Medical Code(s): E86.0 - Dehydration (3) Hypertension Current visit: Yes Status: Acute Category: Medical Code(s): I10 - Essential (primary) hypertension (4) Hyperlipidemia Current visit: Yes Status: Acute Category: Medical Code(s): E78.5 - Hyperlipidemia, unspecified (5) Diarrhea Current visit: Yes Status: Acute Qualifiers: Diarrhea type: unspecified type Qualified Code(s): R19.7 - Diarrhea, unspecified Category: Medical Code(s): R19.7 - Diarrhea, unspecified (6) Vomiting Current visit: Yes Status: Acute Qualifiers: Vomiting type: unspecified Vomiting Intractability: unspecified Nausea presence: with nausea Qualified Code(s): R11.2 - Nausea with vomiting, unspecified Category: Medical Code(s): R11.10 - Vomiting, unspecified (7) Depressive disorder Current visit: Yes Status: Acute Category: Medical Code(s): F32.9 - Major depressive disorder, single episode, unspecified (8) Diabetes type 2, uncontrolled Current visit: Yes Status: Acute Category: Medical Code(s): E11.65 - Type 2 diabetes mellitus with hyperglycemia (9) Long-term insulin use Current visit: Yes Status: Acute Category: Medical Code(s): 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 (10) Non compliance w medication regimen Current visit: Yes Status: Acute Category: Medical Code(s): Z91.14 - Patient's other noncompliance with medication regimen (11) Hypokalemia Current visit: Yes Status: Acute Category: Medical Code(s): E87.6 - Hypokalemia (12) Enteritis due to Norovirus Current visit: Yes Status: Acute Category: Medical Code(s): A08.11 - Acute gastroenteropathy due to [place] agent (13) Sepsis Current visit: Yes Status: Acute Category: Medical Code(s): A41.9 - Sepsis, unspecified organism (14) Fever Current visit: Yes Status: Acute Category: Medical Code(s): R50.9 - Fever, unspecified (15) Urinary tract infection Current visit: Yes Status: Acute Category: Medical Code(s): N39.0 - Urinary tract infection, site not specified (16) Cellulitis of leg, left Current visit: Yes Status: Acute Category: Medical Code(s): L03.116 - Cellulitis of left lower limb (17) Wound of left foot Current visit: Yes Status: Acute Category: Medical Code(s): S91.302A - Unspecified open wound, left foot, initial encounter - Assessment and plan all Dx Assessment and Plan for all problems:: Saw patient, agree with above note. OK to advance diet today, awaiting cultures.
[2018-10-19 05:42] LABS: Basophils % 0.3 % (0.1-2.0); Eosinophils # 0.1 K/mm3 (0.0-0.4); Hematocrit 37.3 % (37.0-47.0); Hemoglobin 12.9 g/dL (12.2-16.2); Lymphocytes # 1.8 K/mm3 (0.7-4.5); Lymphocytes % 16.7 % (10-50); Mean Corpuscular HGB Conc 34.5 g/dL (31.8-35.4); Mean Corpuscular Hemoglobin 30.2 pg (27.0-31.2); Mean Corpuscular Volume 87.4 fl (81-99); Mean Platelet Volume 8.8 fl (7.4-10.4); Monocytes # 1.3 K/mm3 (0.1-1.0); Monocytes % 11.5 % (1.7-9.3); Neutrophils # 7.7 K/mm3 (1.8-7.8); Neutrophils % 70.5 % (37.0-80.0); Platelet Count 222 K/mm3 (142-424); Red Blood Count 4.27 M/mm3 (4.20-5.40); Red Cell Distribution Width 13.9 % (11.5-17.5); White Blood Count 10.9 K/mm3 (4.8-10.8)
[2018-10-19 06:38] LABS: Anion Gap 9.3 mEq/L (5-15); Calcium 8.4 mg/dL (8.5-10.1); Potassium 4.3 mmoL/L (3.5-5.1)
--- NOTE | 2018-10-19 08:15 | Progress Note ---
<Kimberly Alvarez - Last Filed: 10/19/18 08:12> Internal Medicine - PN: Subj *Date: 10/19/18 *Time: 08:12 Interval history: Patient states she is feeling better today. She did not rest very well last night. She did eat all of her breakfast this morning. She feels like her left lower leg has less erythema and edema. Exam Vital signs and Labs for Last 24 Hours: Temp Pulse Resp BP Pulse Ox 98.4 F 81 18 148/66 H 95 10/19/18 03:59 10/19/18 03:59 10/19/18 03:59 10/19/18 03:59 10/19/18 03:59 Laboratory Results - last 24 hr 10/18/18 11:51: POC Glucose 183 H 10/18/18 16:33: POC Glucose 227 H 10/18/18 20:58: POC Glucose 220 H 10/19/18 05:36: POC Glucose 227 H 10/19/18 05:37: WBC 10.9 H, RBC 4.27, Hgb 12.9, Hct 37.3, MCV 87.4, MCH 30.2, MCHC 34.5, RDW 13.9, Plt Count 222, MPV 8.8, Neut % (Auto) 70.5, Lymph % (Auto) 16.7, [place] % (Auto) 11.5 H, Eos % (Auto) 1.0, Baso % (Auto) 0.3, Neut # (Auto) 7.7, Lymph # (Auto) 1.8, [place] # (Auto) 1.3 H, Eos # (Auto) 0.1, Baso # (Auto) 0.0 10/19/18 06:15: Sodium 134 L, Potassium 4.3, Chloride 99, Carbon Dioxide 30, Anion Gap 9.3, BUN 8, Creatinine 0.61, Estimated Creat Clear 93, Estimated GFR 100, Est GFR ( Amer) 121, Glucose 234 H, Calcium 8.4 L I & O for Last 24 hours: Intake & Output 10/16/18 10/17/18 10/18/18 10/19/18 11:59 11:59 11:59 11:59 Intake Total 1560 / 1560 2021 1020 / 1020 Output Total 600 / 600 1200 / 1200 1000 / 1000 Balance 960 / 960 822 / 822 1060 / 1060 1020 / 1020 Weight 254 lb 9 oz 257 lb 9 oz 258 lb 3 oz Microbiology Reports for the Last 24 Hours: Microbiology 10/16/18 11:50 Urine,Clean Catch Urine Culture - Final Escherichia coli 10/17/18 10:55 Foot,Left - Wound Gram Stain - Final 10/17/18 10:55 Foot,Left - Wound Wound Culture - Preliminary Gram Positive Cocci - Constitutional no acute distress - *Routine Respiratory Exam Present: CTA bilaterally - *Routine Cardiovascular Exam Present: RRR - *Routine Abdominal Exam Present: soft, normoactive bowel sounds. Absent: tenderness - *Routine Extremities Exam Present: edema (LLE with erythema of the lower left luevano). Absent: cyanosis, clubbing Assessment and Plan (1) DKA (diabetic ketoacidoses) Current visit: Yes Status: Acute Qualifiers: Diabetes mellitus type: other specified (including VALORIE) Diabetes mellitus complication detail: without coma Qualified Code(s): E13.10 - Other specified diabetes mellitus with ketoacidosis without coma Category: Medical Code(s): E13.10 - Other specified diabetes mellitus with ketoacidosis without coma (2) Dehydration Current visit: Yes Status: Acute Category: Medical Code(s): E86.0 - Dehydration (3) Hypertension Current visit: Yes Status: Acute Category: Medical Code(s): I10 - Essential (primary) hypertension (4) Hyperlipidemia Current visit: Yes Status: Acute Category: Medical Code(s): E78.5 - Hyperlipidemia, unspecified (5) Diarrhea Current visit: Yes Status: Acute Qualifiers: Diarrhea type: unspecified type Qualified Code(s): R19.7 - Diarrhea, unspecified Category: Medical Code(s): R19.7 - Diarrhea, unspecified (6) Vomiting Current visit: Yes Status: Acute Qualifiers: Vomiting type: unspecified Vomiting Intractability: unspecified Nausea presence: with nausea Qualified Code(s): R11.2 - Nausea with vomiting, unspecified Category: Medical Code(s): R11.10 - Vomiting, unspecified (7) Depressive disorder Current visit: Yes Status: Acute Category: Medical Code(s): F32.9 - Major depressive disorder, single episode, unspecified (8) Diabetes type 2, uncontrolled Current visit: Yes Status: Acute Category: Medical Code(s): E11.65 - Type 2 diabetes mellitus with hyperglycemia (9) Long-term insulin use Current visit: Yes Status: Acute Category: Medical Code(s): Z79.4 - FPC (current) use of insulin (10) Non compliance w medication regimen Current visit: Yes Status: Acute Category: Medical Code(s): Z91.14 - Patient's other noncompliance with medication regimen (11) Hypokalemia Current visit: Yes Status: Acute Category: Medical Code(s): E87.6 - Hypokalemia (12) Enteritis due to Norovirus Current visit: Yes Status: Acute Category: Medical Code(s): A08.11 - Acute gastroenteropathy due to [place] agent (13) Sepsis Current visit: Yes Status: Acute Category: Medical Code(s): A41.9 - Sepsis, unspecified organism (14) Fever Current visit: Yes Status: Acute Category: Medical Code(s): R50.9 - Fever, unspecified (15) Urinary tract infection Current visit: Yes Status: Acute Category: Medical Code(s): N39.0 - Urinary tract infection, site not specified (16) Cellulitis of leg, left Current visit: Yes Status: Acute Category: Medical Code(s): L03.116 - Cellulitis of left lower limb (17) Wound of left foot Current visit: Yes Status: Acute Category: Medical Code(s): S91.302A - Unspecified open wound, left foot, initial encounter (18) E. coli UTI Current visit: Yes Status: Acute Category: Medical Code(s): N39.0 - Urinary tract infection, site not specified; B96.20 - Unspecified Escherichia coli [E. coli] as the cause of diseases classified elsewhere - Assessment and plan all Dx Assessment and Plan for all problems:: Urine culture is positive for E. coli which is sensitive to the Rocephin. Her left leg wound culture is still pending. Will discuss further care with Dr. Belle gomez. <Ricky Jones - Last Filed: 10/19/18 08:41> Internal Medicine - PN: Subj *Date: 10/19/18 *Time: 08:40 Exam Vital signs and Labs for Last 24 Hours: Temp Pulse Resp BP Pulse Ox 98.4 F 81 18 148/66 H 95 04/19/19 03:59 10/19/18 03:59 10/19/18 03:59 10/19/18 03:59 10/19/18 03:59 Laboratory Results - last 24 hr 10/18/18 11:51: POC Glucose 183 H 10/18/18 16:33: POC Glucose 227 H 10/18/18 20:58: POC Glucose 220 H 10/19/18 05:36: POC Glucose 227 H 10/19/18 05:37: WBC 10.9 H, RBC 4.27, Hgb 12.9, Hct 37.3, MCV 87.4, MCH 30.2, MCHC 34.5, RDW 13.9, Plt Count 222, MPV 8.8, Neut % (Auto) 70.5, Lymph % (Auto) 16.7, [place] % (Auto) 11.5 H, Eos % (Auto) 1.0, Baso % (Auto) 0.3, Neut # (Auto) 7.7, Lymph # (Auto) 1.8, [place] # (Auto) 1.3 H, Eos # (Auto) 0.1, Baso # (Auto) 0.0 10/19/18 06:15: Sodium 134 L, Potassium 4.3, Chloride 99, Carbon Dioxide 30, Anion Gap 9.3, BUN 8, Creatinine 0.61, Estimated Creat Clear 93, Estimated GFR 100, Est GFR ( Amer) 121, Glucose 234 H, Calcium 8.4 L I & O for Last 24 hours: Intake & Output 10/16/18 10/17/18 10/18/18 10/19/18 23:59 23:59 23:59 23:59 Intake Total 1642 / 1642 2180 / 2180 1820 / 1820 100 / 100 Output Total 600 / 600 1700 / 1900 200 / 200 Balance 1042 / 1042 480 / 280 1620 / 1620 100 / 100 Weight 254 lb 9 oz 257 lb 9 oz 258 lb 3 oz Microbiology Reports for the Last 24 Hours: Microbiology 10/16/18 11:50 Urine,Clean Catch Urine Culture - Final Escherichia coli 10/17/18 10:55 Foot,Left - Wound Gram Stain - Final 10/17/18 10:55 Foot,Left - Wound Wound Culture - Preliminary Gram Positive Cocci Assessment and Plan (1) DKA (diabetic ketoacidoses) Current visit: Yes Status: Acute Qualifiers: Diabetes mellitus type: other specified (including VALORIE) Diabetes mellitus complication detail: without coma Qualified Code(s): E13.10 - Other specified diabetes mellitus with ketoacidosis without coma Category: Medical Code(s): E13.10 - Other specified diabetes mellitus with ketoacidosis without coma (2) Dehydration Current visit: Yes Status: Acute Category: Medical Code(s): E86.0 - Dehydration (3) Hypertension Current visit: Yes Status: Acute Category: Medical Code(s): I10 - Essential (primary) hypertension (4) Hyperlipidemia Current visit: Yes Status: Acute Category: Medical Code(s): E78.5 - Hyperlipidemia, unspecified (5) Diarrhea Current visit: Yes Status: Acute Qualifiers: Diarrhea type: unspecified type Qualified Code(s): R19.7 - Diarrhea, unspecified Category: Medical Code(s): R19.7 - Diarrhea, unspecified (6) Vomiting Current visit: Yes Status: Acute Qualifiers: Vomiting type: unspecified Vomiting Intractability: unspecified Nausea presence: with nausea Qualified Code(s): R11.2 - Nausea with vomiting, unspecified Category: Medical Code(s): R11.10 - Vomiting, unspecified (7) Depressive disorder Current visit: Yes Status: Acute Category: Medical Code(s): F32.9 - Major depressive disorder, single episode, unspecified (8) Diabetes type 2, uncontrolled Current visit: Yes Status: Acute Category: Medical Code(s): E11.65 - Type 2 diabetes mellitus with hyperglycemia (9) Long-term insulin use Current visit: Yes Status: Acute Category: Medical Code(s): Z79.4 - roasterman (current) use of insulin (10) Non compliance w medication regimen Current visit: Yes Status: Acute Category: Medical Code(s): Z91.14 - Patient's other noncompliance with medication regimen (11) Hypokalemia Current visit: Yes Status: Acute Category: Medical Code(s): E87.6 - Hypokalemia (12) Enteritis due to Norovirus Current visit: Yes Status: Acute Category: Medical Code(s): A08.11 - Acute gastroenteropathy due to [place] agent (13) Sepsis Current visit: Yes Status: Acute Category: Medical Code(s): A41.9 - Sepsis, unspecified organism (14) Fever Current visit: Yes Status: Acute Category: Medical Code(s): R50.9 - Fever, unspecified (15) Urinary tract infection Current visit: Yes Status: Acute Category: Medical Code(s): N39.0 - Urinary tract infection, site not specified (16) Cellulitis of leg, left Current visit: Yes Status: Acute Category: Medical Code(s): L03.116 - Cellulitis of left lower limb (17) Wound of left foot Current visit: Yes Status: Acute Category: Medical Code(s): S91.302A - Unspecified open wound, left foot, initial encounter (18) E. coli UTI Current visit: Yes Status: Acute Category: Medical Code(s): N39.0 - Urinary tract infection, site not specified; B96.20 - Unspecified Escherichia coli [E. coli] as the cause of diseases classified elsewhere - Assessment and plan all Dx Assessment and Plan for all problems:: Saw patient, agree with above note. Plan discharge home today on oral C efuroxime, f/u in office next week.
--- NOTE | 2018-10-23 13:47 | Discharge Summary ---
General - General Admission date:: 10/09/18 Discharge date: 10/19/18 HPI HPI: Ms. Painter is a 58-year-old female with a history of type 2 diabetes mellitus, recent infected sebaceous cyst, hypertension, and breast cancer who was brought to [facility] emergency room via EMS. is the main historian and states she has been sick for 4 days with nausea and vomiting. She has had some diarrhea but this has ceased. She has been drinking fluids well but has not eaten for 3 days. Also she has not taken any of her medicines or done fingerstick blood sugars for 3 days. Patient denies chest pain, abdominal pain, and fever. She states she is somewhat short of breath but this has improved. She has been very weak and unable to walk and has had 3-4 falls in the last 24-48 hrs. She denies cough and chest congestion. At the time of this exam patient remains in the emergency room and awaits bed assignment on the medical floor. is with her. Her nurse states that she has improved and is now able to talk and answer questions. With evaluation in the emergency room she was found to be in DKA. She was given IV fluid boluses and started on an insulin drip. She has had about a liter of urinary output thus far. She feels that her breathing has improved. She denies abdominal pain and nausea at present. Hospital Course Hospital Course: The patient's head CT and chest x-ray showed nothing acute. She was admitted with diabetic protocol and was on an insulin pump and receiving IV fluids. Her blood sugars, labs, and urinary output were monitored throughout the night and she was also started on Flagyl for her nausea and vomiting as her white blood cell count was elevated. The patient's sugars improved and her insulin drip was titrated to fingerstick blood sugars. She was able to began tolerating p.o. liquids and had no further diarrhea. She still had nausea and vomiting intermittently. Her acetone level remain large, therefore she was continued on IV fluids with potassium and her insulin drip. Lovenox was added for DVT prophylaxis. She was able to be weaned off of her insulin drip and changed to subcutaneous insulin. She was transferred out of stepdown. Her potassium was low and she had to be given 2 runs of IV potassium. A diarrhea panel was collected and came back showing norovirus. Her nausea and vomiting began improving. She was tolerating a diet and was able to be saline locked. Physical therapy was consulted to see the patient and they felt she could return home once discharged from [facility]. Patient did began running a fever, therefore a UA and chest x-ray were ordered. Her chest x-ray showed a 2 cm parenchymal opacity of the left lung base which could be due to an area of focal consolidation or developing nodule. Radiology felt a CT should be considered. She had a repeat chest x-ray the next day and it showed improvement in left basilar atelectasis versus infiltrate. She continued to run a fever and her UA indicated a UTI. She was started on an additional antibiotic as her urine culture was pending. Her left lower extremity began swelling and did have some redness. A Venous Doppler was ordered of this and was negative for DVT. Her urine culture came back positive for E. coli which was sensitive to the Rocephin that she was taking. Her wound culture of her foot was still pending upon discharge. She was felt to be stable enough to discharge home on oral cefuroxime and she will follow-up with Dr. Jones in the office in 1 week. Of note, the left leg wound culture did come back positive for staph aureus as well as strep pyogenes. Both were sensitive to clindamycin, erythromycin, benzylpenicillin, tetracycline, and vancomycin. Objective Vital signs: Temp Pulse Resp BP Pulse Ox 98.7 F 95 H 18 144/59 H 98 10/19/18 08:00 10/19/18 08:00 10/19/18 08:00 10/19/18 08:00 10/19/18 08:00 Narrative: - Constitutional mild distress, morbidly obese Comments: Rapid respiratory effort; lying on stretcher in the emergency room; is able to answer questions and speech is clear; she assist with exam and is able to independently roll from< - *Routine HEENT Exam Eye: Present: PERRL. Absent: conjunctival icterus, scleral injection ENT: Present: mucous membranes dry, oropharynx clear - *Routine Neck Exam Absent: lymphadenopathy, thyromegaly - *Routine Respiratory Exam Present: CTA bilaterally (Anteriorly and posteriorly) - *Routine Cardiovascular Exam Present: RRR (Sinus tach on monitor at 120-130) - *Routine Abdominal Exam Present: soft, normoactive bowel sounds (Obese). Absent: tenderness - *Routine Extremities Exam Absent: edema Comments: Scarring noted on bilateral lower extremities with some discolorations - *Routine Neurological Exam Present: alert (Responds readily; unable to determine orientation; moves all extremities) DS: Diagnosis - Discharge Diagnosis (1) DKA (diabetic ketoacidoses) Status: Acute (2) Dehydration Status: Acute (3) Hypertension Status: Acute (4) Hyperlipidemia Status: Acute (5) Diarrhea Status: Acute (6) Vomiting Status: Acute (7) Depressive disorder Status: Acute (8) Diabetes type 2, uncontrolled Status: Acute (9) Long-term insulin use Status: Acute (10) Non compliance w medication regimen Status: Acute (11) Hypokalemia Status: Acute (12) Enteritis due to Norovirus Status: Acute (13) Sepsis Status: Acute (14) Fever Status: Acute (15) Urinary tract infection Status: Acute (16) Cellulitis of leg, left Status: Acute (17) Wound of left foot Status: Acute (18) E. coli UTI Status: Acute Discharge Plan - Patient Discharge Instructions ACTIVITY: Continue current activity DIET: continue same diet Patient Instructions: Dehydration, Norovirus Infection, DI for Urinary Tract Infection (UTI), Diabetic Ketoacidosis - Follow up Plan Follow up with: Ricky Jones MD [Primary Care Provider] - 10/23/18 Disposition: Home, Self-Jail Medications: Home Medications Medication Instructions Recorded Confirmed Type Ascorbic Acid [Vitamin C] 1,000 mg PO DAILY 07/05/17 10/09/18 History Atorvastatin Calcium [Atorvastatin 20 mg PO DAILY 07/05/17 10/09/18 History 20mg Tab] Fluoxetine HCl [Sarafem] 20 mg PO DAILY 07/05/17 10/09/18 History Gabapentin [Gabapentin 300mg Cap] 300 mg PO TID 07/05/17 10/09/18 History Insulin Aspart [Novolog Flexpen] 50 unit SQ DIRECTED 07/05/17 10/09/18 History Insulin Glargine,Hum.rec.anlog 100 unit SQ HS 07/05/17 10/09/18 History [Lantus Insulin 100units/mL 10mL vial] Lisinopril [Lisinopril 20mg Tab] 20 mg PO DAILY 07/05/17 10/09/18 History Meloxicam [Mobic 7.5mg Tab] 7.5 mg PO DAILY 07/05/17 10/09/18 History Metformin HCl [Glucophage 500mg 1,000 mg PO BID 07/05/17 10/09/18 History Tablet] Metoprolol Succinate [Toprol XL 50 mg PO DAILY 07/05/17 10/09/18 History 50mg Tablet] Multivitamin [Multivitamins] 1 each PO DAILY 07/05/17 10/09/18 History Vitamin B Complex 1 each PO DAILY 07/05/17 10/09/18 History ARIPiprazole [Abilify 2mg Tablet] 2 mg PO DAILY 10/09/18 10/09/18 History Aspirin [Aspirin 325mg Tab] 325 mg PO DAILY 10/09/18 10/09/18 History Biotin 5 mg PO TID 10/09/18 10/09/18 History Calcium Carbonate/Vitamin D3 1 each PO BID 10/09/18 10/09/18 History [Calcium 600-Vit D3 800 Tablet] Cholecalciferol (Vitamin D3) 2,000 unit PO DAILY 10/09/18 10/09/18 History [Vitamin D3 1,000 Unit Cap] Cinnamon Bark/Chromium Picolin 2 cap PO BID 10/09/18 10/09/18 History [Cinnamon Plus Chromium Capsule] Duloxetine HCl 60 mg PO DAILY 10/09/18 10/09/18 History Fenofibric Acid (Choline) 135 mg PO DAILY 10/09/18 10/09/18 History [Fenofibric Acid] Gluc Gallegos/Chondro Gallegos A/Vit C/Mn 2 each PO DAILY 10/09/18 10/09/18 History [Glucosamine Chondroitin Tab] Krill Oil/[place]-3/Dha/Epa [[place]-3 1 each PO DAILY 10/09/18 10/09/18 History Krill Oil Softgel] L.acidoph,Paracasei, B.lactis 1 each PO DAILY 10/09/18 10/09/18 History [Probiotic] Sitagliptin Phosphate [Januvia 100 mg PO DAILY 10/09/18 10/09/18 History 100mg tablet] Ubidecarenone [Coq-10] 100 mg PO DAILY 10/09/18 10/09/18 History Anastrozole [Arimidex] 1 mg PO DAILY 10/10/18 10/10/18 History cefUROXime axetil [Ceftin 500mg 500 mg PO BID #14 tab 10/19/18 Rx Tab (GEQ)] Prescriptions/Medication Reconciliation: New cefUROXime axetil [Ceftin 500mg Tab (GEQ)] 500 mg PO BID #14 tab Continued Lisinopril [Lisinopril 20mg Tab] 20 mg PO DAILY Insulin Glargine,Hum.rec.anlog [Lantus Insulin 100units/mL 10mL vial] 100 unit SQ HS Vitamin B Complex 1 each PO DAILY Multivitamin [Multivitamins] 1 each PO DAILY Fluoxetine HCl [Sarafem] 20 mg PO DAILY Atorvastatin Calcium [Atorvastatin 20mg Tab] 20 mg PO DAILY Ascorbic Acid [Vitamin C] 1,000 mg PO DAILY Sitagliptin Phosphate [Januvia 100mg tablet] 100 mg PO DAILY Biotin 5 mg PO TID Calcium Carbonate/Vitamin D3 [Calcium 600-Vit D3 800 Tablet] 1 each PO BID Cholecalciferol (Vitamin D3) [Vitamin D3 1,000 Unit Cap] 2,000 unit PO DAILY Cinnamon Bark/Chromium Picolin [Cinnamon Plus Chromium Capsule] 2 cap PO BID Duloxetine HCl 60 mg PO DAILY Fenofibric Acid (Choline) [Fenofibric Acid] 135 mg PO DAILY Gluc Gallegos/Chondro Gallegos A/Vit C/Mn [Glucosamine Chondroitin Tab] 2 each PO DAILY L.acidoph,Paracasei, B.lactis [Probiotic] 1 each PO DAILY Ubidecarenone [Coq-10] 100 mg PO DAILY Anastrozole [Arimidex] 1 mg PO DAILY Metoprolol Succinate [Toprol XL 50mg Tablet] 50 mg PO DAILY Insulin Aspart [Novolog Flexpen] 50 unit SQ DIRECTED Gabapentin [Gabapentin 300mg Cap] 300 mg PO TID Metformin HCl [Glucophage 500mg Tablet] 1,000 mg PO BID Meloxicam [Mobic 7.5mg Tab] 7.5 mg PO DAILY Aspirin [Aspirin 325mg Tab] 325 mg PO DAILY ARIPiprazole [Abilify 2mg Tablet] 2 mg PO DAILY Krill Oil/[place]-3/Dha/Epa [[place]-3 Krill Oil Softgel] 1 each PO DAILY
== END 2018-10-19 10:18 | disposition home or self-care (01) | DRG 638 ==
LOC: ER 10:26 → 2ND 12:31 → ICU 10-11 00:07 → 2ND 10-12 20:40
PROVIDERS: ADMIT Family Medicine; ATTEND Family Medicine
CPT/HCPCS: 36415; 70450; 71010; 71020; 71045; 71046; 80048; 80053; 80076; 81001; 82009; 82150; 82803; 82962; 83605; 83690; 83735; 84100; 84484; 85007; 85025; 87040; 87070; 87077; 87086; 87088; 87186; 87205; 87507; 93005; 93971; 96365; 96366; 96367; 97110; 97161; 99285; J2405

== ENCOUNTER 2019-01-07 12:38 | Inpatient (IN) ==
[2019-01-07 13:25] LABS: Basophils % 0.2 % (0.1-2.0); Eosinophils # 0.2 K/mm3 (0.0-0.4); Eosinophils % 1.1 % (0.1-12.0); Hematocrit 42.1 % (37.0-47.0); Hemoglobin 13.4 g/dL (12.2-16.2); Lymphocytes # 1.8 K/mm3 (0.7-4.5); Lymphocytes % 13.7 % (10-50); Mean Corpuscular HGB Conc 31.8 g/dL (31.8-35.4); Mean Corpuscular Volume 87.9 fl (81-99); Mean Platelet Volume 9.3 fl (7.4-10.4); Monocytes # 0.6 K/mm3 (0.1-1.0); Monocytes % 4.8 % (1.7-9.3); Neutrophils # 10.6 K/mm3 (1.8-7.8); Neutrophils % 80.2 % (37.0-80.0); Platelet Count 264 K/mm3 (142-424); Red Blood Count 4.79 M/mm3 (4.20-5.40); Red Cell Distribution Width 14.6 % (11.5-17.5); White Blood Count 13.3 K/mm3 (4.8-10.8)
--- NOTE | 2019-01-07 13:30 | Emergency Department Note ---
ED Disposition Clinical Impression: Cellulitis, Cellulitis of foot Clinical Impression: (Ruled Out): Cellulitis and abscess of foot excluding toe Disposition: Admitted As Inpatient Condition on Discharge: Fair Instructions: DI for Skin Abscess Referrals: Ricky Jones MD [Primary Care Provider] - Time of Disposition: 15:07 - Critical Care Critical Care Time: No Attestation: On 01/07/19, the high probability of a clinically significant, sudden or life threatening deterioration of the following system(s) required my full and direct attention, intervention and personal management. The time I documented below is in addition to time spent performing reported procedures but includes the following listed in this critical care notation. Medical Decision Making - Medical Records Medical records reviewed: Yes: I reviewed the patient's medical records. - Gunner Inquiry Pt receiving controlled substance: No Gunner was queried for this patient: No Vital Signs: 01/07/19 12:48 Temperature 98.5 F Temperature Source Temporal Artery Scan Pulse Rate [Right Brachial] 106 H Respiratory Rate 16 Blood Pressure [Right Arm] 132/94 H Blood Pressure Mean [Right Arm] 106 Blood Pressure Source [Right Arm] Automatic Cuff Blood Pressure Position [Right Arm] Sitting 02 Sat by Pulse Oximetry 96 Oxygen Delivery Method Room Air - Lab Data Lab results reviewed: Yes: I reviewed the patient's lab results. Lab Results 01/07/19 13:04: VBG pH 7.46 H, VBG pCO2 36.9, VBG pO2 99.2 H, VBG HCO3 25.5, VBG Total CO2 26.7, VBG O2 Saturation 97.9 H, VBG Base Excess 1.7 01/07/19 13:10: WBC 13.3 H, RBC 4.79, Hgb 13.4, Hct 42.1, MCV 87.9, MCH 28.0, MCHC 31.8, RDW 14.6, Plt Count 264, MPV 9.3, Neut % (Auto) 80.2 H, Lymph % (Auto) 13.7, [place] % (Auto) 4.8, Eos % (Auto) 1.1, Baso % (Auto) 0.2, Neut # (Auto) 10.6 H, Lymph # (Auto) 1.8, [place] # (Auto) 0.6, Eos # (Auto) 0.2, Baso # (Auto) 0.0 01/07/19 13:10: Sodium 129 L, Potassium 4.3, Chloride 94 L, Carbon Dioxide 26, Anion Gap 13.3, BUN 22 H, Creatinine 0.98, Estimated Creat Clear 112, Estimated GFR 58 L, Est GFR ( Amer) 70, Glucose 333 H, Uric Acid 5.8, Calcium 9.6, Total Bilirubin 0.5, AST 15, ALT 27, Alkaline Phosphatase 80, Total Protein 8.3 H D, Albumin 3.1 L, Globulin 5.2 H, Albumin/Globulin Ratio 0.6 L, Acetone Level None detected Result diagrams: 01/07/19 13:10 01/07/19 13:10 Orders (Tests/Meds): ORDERS Category Date Time Status Foot XR left 2 views [XR foot LT 2V] Stat Exams 01/07/19 14:48 Ordered Lactic Acid Stat Lab 01/07/19 14:52 Ordered - Physician Consults Physician Consulted: alfred Time: 14:57 Reason -: Admission, Pt condition General Adult HPI - General Chief complaint: Skin/Abscess/Foreign Body Stated complaint: left foot pain Time Seen by Provider: 01/07/19 13:27 Mode of Arrival: Family Vehicle Source of Information: Patient Limitations: No Limitations Description of Symptoms (Recalled from ER Triage Doc. by RN): pt presents with left foot pain and redness [facility]. pt's states that that doctor wanted to admit her, however he refused and wanted her to be seen at [facility]. 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 Her pcp is here - Related Data Home Medications Medication Instructions Recorded Confirmed Ascorbic Acid [Vitamin C] 1,000 mg PO DAILY 07/05/17 10/09/18 Atorvastatin Calcium [Atorvastatin 20 mg PO DAILY 07/05/17 10/09/18 20mg Tab] Fluoxetine HCl [Sarafem] 20 mg PO DAILY 07/05/17 10/09/18 Gabapentin [Gabapentin 300mg Cap] 300 mg PO TID 07/05/17 10/09/18 Insulin Aspart [Novolog Flexpen] 50 unit SQ DIRECTED 07/05/17 10/09/18 Insulin Glargine,Hum.rec.anlog 100 unit SQ HS 07/05/17 10/09/18 [Lantus Insulin 100units/mL 10mL vial] Lisinopril [Lisinopril 20mg Tab] 20 mg PO DAILY 07/05/17 10/09/18 Meloxicam [Mobic 7.5mg Tab] 7.5 mg PO DAILY 07/05/17 10/09/18 Metformin HCl [Glucophage 500mg 1,000 mg PO BID 07/05/17 10/09/18 Tablet] Metoprolol Succinate [Toprol XL 50 mg PO DAILY 07/05/17 10/09/18 50mg Tablet] Multivitamin [Multivitamins] 1 each PO DAILY 07/05/17 10/09/18 Vitamin B Complex 1 each PO DAILY 07/05/17 10/09/18 ARIPiprazole [Abilify 2mg Tablet] 2 mg PO DAILY 10/09/18 10/09/18 Aspirin [Aspirin 325mg Tab] 325 mg PO DAILY 10/09/18 10/09/18 Biotin 5 mg PO TID 10/09/18 10/09/18 Calcium Carbonate/Vitamin D3 1 each PO BID 10/09/18 10/09/18 [Calcium 600-Vit D3 800 Tablet] Cholecalciferol (Vitamin D3) 2,000 unit PO DAILY 10/09/18 10/09/18 [Vitamin D3 1,000 Unit Cap] Cinnamon Bark/Chromium Picolin 2 cap PO BID 10/09/18 10/09/18 [Cinnamon Plus Chromium Capsule] Duloxetine HCl 60 mg PO DAILY 10/09/18 10/09/18 Fenofibric Acid (Choline) 135 mg PO DAILY 10/09/18 10/09/18 [Fenofibric Acid] Gluc Gallegos/Chondro Gallegos A/Vit C/Mn 2 each PO DAILY 10/09/18 10/09/18 [Glucosamine Chondroitin Tab] Krill Oil/Lowgap-3/Dha/Epa [Lowgap-3 1 each PO DAILY 10/09/18 10/09/18 Krill Oil Softgel] L.acidoph,Paracasei, B.lactis 1 each PO DAILY 10/09/18 10/09/18 [Probiotic] Sitagliptin Phosphate [Januvia 100 mg PO DAILY 10/09/18 10/09/18 100mg tablet] Ubidecarenone [Coq-10] 100 mg PO DAILY 10/09/18 10/09/18 Anastrozole [Arimidex] 1 mg PO DAILY 10/10/18 10/10/18 Previous Rx's Medication Instructions Recorded cefUROXime axetil [Ceftin 500mg 500 mg PO BID #14 tab 10/19/18 Tab (GEQ)] Allergies Allergy/AdvReac Type Severity Reaction Status Date / Time No Known Allergies Allergy Verified 09/18/18 09:[address] [facility] History - Hepatitis A Screen Drug use history?: No High risk sexual behaviors?: No History of sexually transmitted infection?: No Currently employed?: No Childcare worker?: No Do you have indoor plumbing?: Yes Do you have electricity?: Yes Attestation statement:: This patient has been screened for Hepatitis A risk factors. I have reviewed the patient's past medical history: Yes Medical History: Reports:: Cancer, Depression, Diabetes Mellitus Type 2, Hyperlipidemia, Hypertension, Palpitations, Peripheral Vascular Disease, Renal Insufficiency, Urinary Tract Infection Denies:: Diabetes Mellitus Type 1, Internal Pacemaker, Lung Disease, Seizures Comment: Venous stasis ulcer; carpal tunnel syndrome; previous DKA and [id number] E. coli UTI; extensive cellulitis of the left foot treated by ID at [facility] 2013 Laterality Cases: Left: Carpal Tunnel Release, Lumpectomy, Other, Bilateral: Breast Biopsy, Tonsillectomy Other Surgeries: Yes: Cholecystectomy, Colonoscopy, Other (Left lumpectomy). No: Pacemaker - Social History Smoking Status: Never smoker Alcohol Intake: never Substance Use Type: denies use Occupational Status: disabled - Psychiatric History Pschychiatric History:: Reports:: Depression Family Hx:: Hypertension, Diabetes, Coronary Artery Disease, Asthma ROS Obtained: Yes All systems reviewed & no additional complaints - Constitutional Constitutional: Reports chills, Reports fever(s) - Gastrointestinal Gastrointestingal: Reports: nausea. Denies: diarrhea - Integumentary/Breasts Skin/Breast: Reports redness, Reports skin pain, Reports wounds, Reports other (dressed) - Neurologic Neurologic: Denies syncope - Hematologic/Lymphatic Henatologic/Lymphatic: Denies easy bleeding, Denies easy bruising Physical Exam - General General appearance: alert, in no apparent distress - Head Head exam: atraumatic, normocephalic, normal inspection - Eye Eye exam: Present: normal appearance, PERRL, EOMI - ENT ENT exam: Present: normal exam, normal oropharynx, mucous membranes moist, TM's normal bilaterally, normal external ear exam - Respiratory Respiratory exam: Present: normal lung sounds bilaterally. Absent: respiratory distress - Cardiovascular Cardiovascular exam: Present: regular rate, normal rhythm. Absent: JVD - Abdominal Exam Abdominal exam: Present: soft, normal bowel sounds. Absent: distention, tenderness, guarding - Extremities Exam Extremities exam: Present: tenderness, pedal edema, other (erythema and swelling on left). Absent: normal inspection, full ROM - Neurological Exam Neurological exam: Present: alert, oriented X3 - Psychiatric Psychiatric exam: Present: normal affect, normal mood - Skin Skin exam: Present: warm, dry, intact, erythema. Absent: normal color
[2019-01-07 13:41] LABS: VBG Base Excess 1.7 mmol/L (-2.4-2.3); VBG HCO3 25.5 mmol/L (23-30); VBG Oxygen Saturation 97.9 % (50-70); VBG PCO2 36.9 mmol/L (35-51); VBG PH 7.46 mmol/L (7.31-7.41); VBG PO2 99.2 mmol/L (28-40); VBG Total CO2 26.7 mmol/L (23-27)
[2019-01-07 13:55] LABS: Alanine Aminotransferase 27 U/L (12-78); Albumin Level 3.1 gm/dL (3.4-5.0); Albumin/Globulin Ratio 0.6 (1.1-1.8); Alkaline Phosphatase 80 U/L (46-116); Anion Gap 13.3 mEq/L (5-15); Aspartate Amino Transferase 15 U/L (15-37); Bilirubin,Total 0.5 mg/dL (0.2-1.0); Blood Urea Nitrogen 22 mg/dL (7-18); Calcium 9.6 mg/dL (8.5-10.1); Carbon Dioxide 26 mmol/L (21.0-32.0); Chloride 94 mmol/L (98-107); Globulin 5.2 gm/dl (1.3-3.2); Glucose 333 mg/dL (74-106); Sodium 129 mmol/L (136-145); Total Protein,Serum 8.3 gm/dL (6.4-8.2); Uric Acid 5.8 mg/dL (2.6-7.2)
[2019-01-07 14:05] LABS: Acetone, Serum (Rapid) None Detected (None Detect)
--- NOTE | 2019-01-07 16:05 | Pharmacy Consult Notes ---
- Pharmacy Consult Date: 01/07/19 Time: 16:04 Referring provider: DR. THOMAS Reason for Consult:: VANCOMYCIN DOSING Allergies and ADEs:: Allergies Allergy/AdvReac Type Severity Reaction Status Date / Time No Known Allergies Allergy Verified 09/18/18 09:21 Home Medications:: Home Medications Medication Instructions Recorded Confirmed Type Ascorbic Acid [Vitamin C] 1,000 mg PO DAILY 07/05/17 01/07/19 History Atorvastatin Calcium [Atorvastatin 20 mg PO DAILY 07/05/17 01/07/19 History 20mg Tab] Fluoxetine HCl [Sarafem] 20 mg PO DAILY 07/05/17 01/07/19 History Gabapentin [Gabapentin 300mg Cap] 300 mg PO TID 07/05/17 01/07/19 History Insulin Aspart [Novolog Flexpen] 50 unit SQ DIRECTED 07/05/17 01/07/19 History Insulin Glargine,Hum.rec.anlog 100 unit SQ BID 07/05/17 01/07/19 History [Lantus Insulin 100units/mL 10mL vial] Lisinopril [Lisinopril 20mg Tab] 20 mg PO DAILY 07/05/17 01/07/19 History Meloxicam [Mobic 7.5mg Tab] 7.5 mg PO DAILY 07/05/17 01/07/19 History Metformin HCl [Glucophage 500mg 1,000 mg PO BID 07/05/17 01/07/19 History Tablet] Metoprolol Succinate [Toprol XL 50 mg PO DAILY 07/05/17 01/07/19 History 50mg Tablet] Multivitamin [Multivitamins] 1 each PO DAILY 07/05/17 01/07/19 History Vitamin B Complex 1 each PO DAILY 07/05/17 01/07/19 History ARIPiprazole [Abilify 2mg Tablet] 2 mg PO DAILY 10/09/18 01/07/19 History Aspirin [Aspirin 325mg Tab] 325 mg PO DAILY 10/09/18 01/07/19 History Biotin 5 mg PO TID 10/09/18 01/07/19 History Calcium Carbonate/Vitamin D3 1 each PO BID 10/09/18 01/07/19 History [Calcium 600-Vit D3 800 Tablet] Cholecalciferol (Vitamin D3) 2,000 unit PO DAILY 10/09/18 01/07/19 History [Vitamin D3 1,000 Unit Cap] Cinnamon Bark/Chromium Picolin 2 cap PO BID 10/09/18 01/07/19 History [Cinnamon Plus Chromium Capsule] Duloxetine HCl 60 mg PO DAILY 10/09/18 01/07/19 History Fenofibric Acid (Choline) 135 mg PO DAILY 10/09/18 01/07/19 History [Fenofibric Acid] Gluc Gallegos/Chondro Gallegos A/Vit C/Mn 2 each PO DAILY 10/09/18 01/07/19 History [Glucosamine Chondroitin Tab] Krill Oil/[place]-3/Dha/Epa [[place]-3 1 each PO DAILY 10/09/18 01/07/19 History Krill Oil Softgel] L.acidoph,Paracasei, B.lactis 1 each PO DAILY 10/09/18 01/07/19 History [Probiotic] Sitagliptin Phosphate [Januvia 100 mg PO DAILY 10/09/18 01/07/19 History 100mg tablet] Ubidecarenone [Coq-10] 100 mg PO DAILY 10/09/18 01/07/19 History Anastrozole [Arimidex] 1 mg PO DAILY 10/10/18 01/07/19 History Height: 1.68 m Weight: 114.305 kg Laboratory Results:: Laboratory Results - last 24 hr 01/07/19 13:04: VBG pH 7.46 H, VBG pCO2 36.9, VBG pO2 99.2 H, VBG HCO3 25.5, VBG Total CO2 26.7, VBG O2 Saturation 97.9 H, VBG Base Excess 1.7 01/07/19 13:10: WBC 13.3 H, RBC 4.79, Hgb 13.4, Hct 42.1, MCV 87.9, MCH 28.0, MCHC 31.8, RDW 14.6, Plt Count 264, MPV 9.3, Neut % (Auto) 80.2 H, Lymph % (Auto) 13.7, [place] % (Auto) 4.8, Eos % (Auto) 1.1, Baso % (Auto) 0.2, Neut # (Auto) 10.6 H, Lymph # (Auto) 1.8, [place] # (Auto) 0.6, Eos # (Auto) 0.2, Baso # (Auto) 0.0 01/07/19 13:10: Sodium 129 L, Potassium 4.3, Chloride 94 L, Carbon Dioxide 26, Anion Gap 13.3, BUN 22 H, Creatinine 0.98, Estimated Creat Clear 112, Estimated GFR 58 L, Est GFR ( Amer) 70, Glucose 333 H, Uric Acid 5.8, Calcium 9.6, Total Bilirubin 0.5, AST 15, ALT 27, Alkaline Phosphatase 80, Total Protein 8.3 H D, Albumin 3.1 L, Globulin 5.2 H, Albumin/Globulin Ratio 0.6 L, Acetone Level None detected 01/07/19 13:30: Lactate 1.8 Medical History: Reports:: Cancer, Depression, Diabetes Mellitus Type 2, Hyperlipidemia, Hypertension, Palpitations, Peripheral Vascular Disease, Renal Insufficiency, Urinary Tract Infection Denies:: Diabetes Mellitus Type 1, Internal Pacemaker, Lung Disease, Seizures Assessment and Plan - Assessment and plan all Dx Assessment and Plan for all problems:: BASED ON PATIENT'S FACTORS, RECOMMEND STARTING WITH VANCOMYCIN 2000 MG Q18H AT THIS TIME. PHARMACY WILL FOLLOW DAILY AND ADJUST APPROPRIATE. GLEN PUGH, ADISD
--- NOTE | 2019-01-07 17:08 | History & Physical Report ---
*Admission Date: 01/07/19 <Katlyn Nieves 01/07/19 17:29> *Chief complaint: cellulitis of the left lower leg <Katlyn Nieves 01/07/19 17:29> *History of present illness: Ms Painter is a 58-year-old female with a history of type 2 diabetes mellitus, hyperlipidemia, hypertension, venous stasis ulcer of the left leg, depression, breast cancer, who saw her elastic attacher zigzag today in [facility] for routine assessment of a left leg wound. This wound had almost healed but the left lower leg is edematous and erythematous. The patient has been experiencing nausea and vomiting for the last 2 to 3 days and has been unable to keep down any fluids. Thus he gave her the option of being admitted to the hospital in [place] or to return to [place] for admission at [facility] for IV antibiotics. She and her decided for her to return to [place]. She was seen in the emergency room and found to have an elevated white blood cell count and was thus admitted for further evaluation and treatment. Foot x- ray shows no obvious osteomyelitis. With this exam patient is sitting on the side of the stretcher in the ER room awaiting admission to the medical floor. She appears comfortable. She continues to have nausea. She denies leg pain. <Katlyn Nieves 01/07/19 17:29> [facility] History Medical History: Reports:: Cancer, Depression, Diabetes Mellitus Type 2, Hyperlipidemia, Hypertension, Palpitations, Peripheral Vascular Disease, Renal Insufficiency, Urinary Tract Infection Denies:: Diabetes Mellitus Type 1, Internal Pacemaker, Lung Disease, Seizures <Katlyn Nieves 01/07/19 17:29> *Have you ever received a pneumonia vaccine?: No <Katlyn Nieves 01/07/19 17:29> *Have you received a flu vaccine this season?: No <Katlyn Nieves 01/07/19 17:29> Comment:: History of stasis ulcer <Katlyn Nieves 01/07/19 17:29> Laterality Cases: Left: Carpal Tunnel Release, Lumpectomy, Other, Bilateral: Breast Biopsy, Tonsillectomy <Katlyn Nieves 01/07/19 17:29> Other Surgeries: Yes: Cholecystectomy, Colonoscopy, Other (Left lumpectomy). No: Pacemaker <Dyan Nieveshy 01/07/19 17:29> - *Social History Smoking Status: Never smoker <Dyan Nieveshy 01/07/19 17:29> Alcohol Intake: never <NievesKatlyn 01/07/19 17:29> Substance Use Type: denies use <Dyan Nieveshy 01/07/19 17:29> *Occupational Status:: disabled <Dyan Nieveshy 01/07/19 17:29> *Travel in the last 8 weeks: None <Dyan Nieveshy 01/07/19 17:29> - Psychiatric History Pschychiatric History:: Reports:: Depression <NievesKatlyn 01/07/19 17:29> Family Hx:: Hypertension, Diabetes, Coronary Artery Disease, Asthma <NievesKatlyn 01/07/19 17:29> Review of Systems - Constitutional Reports chills <NievesKaltyn 01/07/19 17:29> - ENT Reports ear pain, Denies sore throat <NievesKatlyn 01/07/19 17:29> - *Cardiovascular Reports leg swelling, Reports leg sores, Denies chest pain, Denies shortness of breath, Denies rapid, pounding, or irregular heartbeat <NievesKatlyn 01/07/19 17:29> - *Respiratory Reports shortness of breath with activity, Denies chest congestion, Denies cough <NievesKatlyn 01/07/19 17:29> - *Gastrointestinal Reports nausea, Reports vomiting, Denies abdominal pain, Denies vomiting blood, Denies loose stools <NievesKatlyn 01/07/19 17:29> - *Genitourinary Denies difficulty urinating <NievesKatlyn 01/07/19 17:29> - *Musculoskeletal Denies joint pain, Denies body aches <NievesKatlyn 01/07/19 17:29> - *Neurologic Denies fainting <NievesKatlyn 01/07/19 17:29> - Endocrine Comments: She states her blood sugars have been running high <NievesKatlyn 01/07/19 17:29> Meds Home Medications Medication Instructions Recorded Confirmed Type Ascorbic Acid [Vitamin C] 1,000 mg PO DAILY 07/05/17 01/07/19 History Atorvastatin Calcium [Atorvastatin 20 mg PO DAILY 07/05/17 01/07/19 History 20mg Tab] Fluoxetine HCl [Sarafem] 20 mg PO DAILY 07/05/17 01/07/19 History Gabapentin [Gabapentin 300mg Cap] 300 mg PO TID 07/05/17 01/07/19 History Insulin Aspart [Novolog Flexpen] 50 unit SQ DIRECTED 07/05/17 01/07/19 History Insulin Glargine,Hum.rec.anlog 100 unit SQ BID 07/05/17 01/07/19 History [Lantus Insulin 100units/mL 10mL vial] Lisinopril [Lisinopril 20mg Tab] 20 mg PO DAILY 07/05/17 01/07/19 History Meloxicam [Mobic 7.5mg Tab] 7.5 mg PO DAILY 07/05/17 01/07/19 History Metformin HCl [Glucophage 500mg 1,000 mg PO BID 07/05/17 01/07/19 History Tablet] Metoprolol Succinate [Toprol XL 50 mg PO DAILY 07/05/17 01/07/19 History 50mg Tablet] Multivitamin [Multivitamins] 1 each PO DAILY 07/05/17 01/07/19 History Vitamin B Complex 1 each PO DAILY 07/05/17 01/07/19 History ARIPiprazole [Abilify 2mg Tablet] 2 mg PO DAILY 10/09/18 01/07/19 History Aspirin [Aspirin 325mg Tab] 325 mg PO DAILY 10/09/18 01/07/19 History Biotin 5 mg PO TID 10/09/18 01/07/19 History Calcium Carbonate/Vitamin D3 1 each PO BID 10/09/18 01/07/19 History [Calcium 600-Vit D3 800 Tablet] Cholecalciferol (Vitamin D3) 2,000 unit PO DAILY 10/09/18 01/07/19 History [Vitamin D3 1,000 Unit Cap] Cinnamon Bark/Chromium Picolin 2 cap PO BID 10/09/18 01/07/19 History [Cinnamon Plus Chromium Capsule] Duloxetine HCl 60 mg PO DAILY 10/09/18 01/07/19 History Fenofibric Acid (Choline) 135 mg PO DAILY 10/09/18 01/07/19 History [Fenofibric Acid] Gluc Gallegos/Chondro Gallegos A/Vit C/Mn 2 each PO DAILY 10/09/18 01/07/19 History [Glucosamine Chondroitin Tab] Krill Oil/[place]-3/Dha/Epa [[place]-3 1 each PO DAILY 10/09/18 01/07/19 History Krill Oil Softgel] L.acidoph,Paracasei, B.lactis 1 each PO DAILY 10/09/18 01/07/19 History [Probiotic] Sitagliptin Phosphate [Januvia 100 mg PO DAILY 10/09/18 01/07/19 History 100mg tablet] Ubidecarenone [Coq-10] 100 mg PO DAILY 10/09/18 01/07/19 History Anastrozole [Arimidex] 1 mg PO DAILY 10/10/18 01/07/19 History <RobertRicky - 01/07/19 17:46> Allergies Allergy/AdvReac Type Severity Reaction Status Date / Time No Known Allergies Allergy Verified 09/18/18 09:21 <Ricky Jones - 01/07/19 17:46> Exam Vital signs and Labs for Last 24 Hours: Temp Pulse Resp BP Pulse Ox 98.0 F 96 H 20 159/77 H 97 01/07/19 17:22 01/07/19 17:22 01/07/19 17:22 01/07/19 17:22 01/07/19 17:22 Laboratory Results - last 24 hr 01/07/19 13:04: VBG pH 7.46 H, VBG pCO2 36.9, VBG pO2 99.2 H, VBG HCO3 25.5, VBG Total CO2 26.7, VBG O2 Saturation 97.9 H, VBG Base Excess 1.7 01/07/19 13:10: WBC 13.3 H, RBC 4.79, Hgb 13.4, Hct 42.1, MCV 87.9, MCH 28.0, MCHC 31.8, RDW 14.6, Plt Count 264, MPV 9.3, Neut % (Auto) 80.2 H, Lymph % (Auto) 13.7, [place] % (Auto) 4.8, Eos % (Auto) 1.1, Baso % (Auto) 0.2, Neut # (Auto) 10.6 H, Lymph # (Auto) 1.8, [place] # (Auto) 0.6, Eos # (Auto) 0.2, Baso # (Auto) 0.0 01/07/19 13:10: Sodium 129 L, Potassium 4.3, Chloride 94 L, Carbon Dioxide 26, Anion Gap 13.3, BUN 22 H, Creatinine 0.98, Estimated Creat Clear 112, Estimated GFR 58 L, Est GFR ( Amer) 70, Glucose 333 H, Uric Acid 5.8, Calcium 9.6, Total Bilirubin 0.5, AST 15, ALT 27, Alkaline Phosphatase 80, Total Protein 8.3 H D, Albumin 3.1 L, Globulin 5.2 H, Albumin/Globulin Ratio 0.6 L, Acetone Level None detected 01/07/19 13:10: Lactate 1.9 01/07/19 13:30: Lactate 1.8 01/07/19 17:23: POC Glucose 348 H* <[place],Ricky - 01/07/19 17:46> Temp Pulse Resp BP Pulse Ox 98.1 F 83 18 143/65 H 96 01/07/19 16:22 01/07/19 16:22 01/07/19 16:22 01/07/19 16:22 01/07/19 12:48 Laboratory Results - last 24 hr 01/07/19 13:04: VBG pH 7.46 H, VBG pCO2 36.9, VBG pO2 99.2 H, VBG HCO3 25.5, VBG Total CO2 26.7, VBG O2 Saturation 97.9 H, VBG Base Excess 1.7 01/07/19 13:10: WBC 13.3 H, RBC 4.79, Hgb 13.4, Hct 42.1, MCV 87.9, MCH 28.0, MCHC 31.8, RDW 14.6, Plt Count 264, MPV 9.3, Neut % (Auto) 80.2 H, Lymph % (Auto) 13.7, [place] % (Auto) 4.8, Eos % (Auto) 1.1, Baso % (Auto) 0.2, Neut # (Auto) 10.6 H, Lymph # (Auto) 1.8, [place] # (Auto) 0.6, Eos # (Auto) 0.2, Baso # (Auto) 0.0 01/07/19 13:10: Sodium 129 L, Potassium 4.3, Chloride 94 L, Carbon Dioxide 26, Anion Gap 13.3, BUN 22 H, Creatinine 0.98, Estimated Creat Clear 112, Estimated GFR 58 L, Est GFR ( Amer) 70, Glucose 333 H, Uric Acid 5.8, Calcium 9.6, Total Bilirubin 0.5, AST 15, ALT 27, Alkaline Phosphatase 80, Total Protein 8.3 H D, Albumin 3.1 L, Globulin 5.2 H, Albumin/Globulin Ratio 0.6 L, Acetone Level None detected 01/07/19 13:30: Lactate 1.8 <Katlyn Nieves 01/07/19 17:29> I & O for Last 24 hours: Intake & Output 01/04/19 01/05/19 01/06/19 01/07/19 23:59 23:59 23:59 23:59 Intake Total 150 / 150 Balance 150 / 150 Weight 251 lb 9 oz <Ricky Jones - 01/07/19 17:46> Intake & Output 01/05/19 01/06/19 01/07/19 01/08/19 11:59 11:59 11:59 11:59 Intake Total 150 / 150 Balance 150 / 150 Weight 252 lb <Katlyn Nieves 01/07/19 17:29> Radiology Reports for the Last 24 Hours: 01/08/2019 x-ray of the left foot IMPRESSION: Hallux valgus with osteoarthritis. There is cellulitis with small soft tissue ulcer medially but no obvious osteomyelitis <NievesKatlyn 01/07/19 17:29> - Constitutional no acute distress, obese <Katlyn Nieves 01/07/19 17:29> - *Routine HEENT Exam Head: Present: normocephalic, atraumatic <NievesKatlyn 01/07/19 17:29> Eye: Present: PERRL. Absent: conjunctival icterus, scleral injection <NievesKatlyn 01/07/19 17:29> ENT: Present: mucous membranes moist, oropharynx clear <NievesKatlyn 01/07/19 17:29> - *Routine Neck Exam Present: supple. Absent: carotid bruit, lymphadenopathy, thyromegaly <EzequielKatlyn 01/07/19 17:29> - *Routine Respiratory Exam Present: CTA bilaterally (Anteriorly and posteriorly) <Katlyn Nieves 01/07/19 17:29> - *Routine Cardiovascular Exam Present: RRR <Katlyn Nieves 01/07/19 17:29> - *Routine Abdominal Exam Present: soft, normoactive bowel sounds. Absent: tenderness <Katlyn Nieves 01/07/19 17:29> - *Routine Extremities Exam Present: edema (Short pretty good she still numbness on the stretcher she has cellulitis she said that they change the dressing today is healed and she is to take the dressing off if you just go and she has no new wounds so this time blood sugars in the) <Katlyn Nieves 01/07/19 17:29> Comments: Left lower leg with erythema, edema, tightness, and it is hot to touch. Leg is not tender. Skin is intact. She has a dressing over the distal foot which was changed by the elastic attacher zigzag in [place]. She states she has no open areas. <Katlyn Nieves 01/07/19 17:29> - *Routine Neurological Exam Present: alert, oriented X3 <Katlyn Nieves 01/07/19 17:29> Assessment and Plan (1) Cellulitis of leg, left Current visit: No Status: Acute Category: Medical Code(s): L03.116 - Cellulitis of left lower limb (2) Vomiting Current visit: No Status: Acute Qualifiers: Vomiting type: unspecified Vomiting Intractability: unspecified Nausea presence: with nausea Qualified Code(s): R11.2 - Nausea with vomiting, unspecified Category: Medical Code(s): R11.10 - Vomiting, unspecified (3) Hyponatremia Current visit: Yes Status: Acute Category: Medical Code(s): E87.1 - Hypo- osmolality and hyponatremia (4) Type 2 diabetes mellitus Current visit: Yes Status: Chronic Category: Medical Code(s): E11.9 - Type 2 diabetes mellitus without complications (5) Diabetes type 2, uncontrolled Current visit: No Status: Chronic Category: Medical Code(s): E11.65 - Type 2 diabetes mellitus with hyperglycemia (6) Hyperlipidemia Current visit: No Status: Chronic Category: Medical Code(s): E78.5 - Hyperlipidemia, unspecified (7) Hypertension Current visit: No Status: Chronic Category: Medical Code(s): I10 - Essential (primary) hypertension (8) Wound of left foot Current visit: No Status: Chronic Category: Medical Code(s): S91.302A - Unspecified open wound, left foot, initial encounter <Ricky Jones - 01/07/19 17:46> (1) Cellulitis of leg, left Current visit: No Status: Acute Category: Medical Code(s): L03.116 - Cellulitis of left lower limb (2) Vomiting Current visit: No Status: Acute Qualifiers: Vomiting type: unspecified Vomiting Intractability: unspecified Nausea presence: with nausea Qualified Code(s): R11.2 - Nausea with vomiting, unspecified Category: Medical Code(s): R11.10 - Vomiting, unspecified (3) Hyponatremia Current visit: Yes Status: Acute Category: Medical Code(s): E87.1 - Hypo- osmolality and hyponatremia (4) Type 2 diabetes mellitus Current visit: Yes Status: Chronic Category: Medical Code(s): E11.9 - Type 2 diabetes mellitus without complications (5) Diabetes type 2, uncontrolled Current visit: No Status: Chronic Category: Medical Code(s): E11.65 - Type 2 diabetes mellitus with hyperglycemia (6) Hyperlipidemia Current visit: No Status: Chronic Category: Medical Code(s): E78.5 - Hyperlipidemia, unspecified (7) Hypertension Current visit: No Status: Chronic Category: Medical Code(s): I10 - Essential (primary) hypertension (8) Wound of left foot Current visit: No Status: Chronic Category: Medical Code(s): S91.302A - Unspecified open wound, left foot, initial encounter <Katlyn Nieves - 01/07/19 17:03> - Assessment and plan all Dx Assessment and Plan for all problems:: Saw patient, agree with above note. <Ricky Jones - 01/07/19 17:46> Patient has been started on Piperacillin and vancomycin and IV fluids. <Katlyn Nieves - 01/07/19 17:29>
--- NOTE | 2019-01-08 07:36 | Pharmacy Consult Notes ---
[facility] Pharmacy VTE Monitoring - Patient Demographics Admission date: 01/07/19 Report Date: 01/08/19 Time: 07:36 Allergies/Adverse Reactions: Patient Allergies No Known Allergies Allergy (Verified 09/18/18 09:21) Height: 1.68 m Weight: 115.808 kg Patient Problems: Current Active Problems (Updated 01/07/19 @ 17:29 by Katlyn Nieves APRN) Cellulitis (Acute) Cellulitis of foot (Acute) Type 2 diabetes mellitus (Chronic) Hyponatremia (Acute) - VTE Risk Labs: VTE Related Lab Results Hgb 13.4 g/dL (12.2-16.2) 01/07/19 13:10 Hct 42.1 % (37.0-47.0) 01/07/19 13:10 Plt Count 264 K/mm3 (142-424) 01/07/19 13:10 BUN 31 mg/dL (7-18) H D 01/08/19 05:09 Creatinine 1.19 mg/dL (0.55-1.02) H D 01/08/19 05:09 Estimated Creat Clear 48 mL/min (50-200) 01/08/19 05:09 Was VTE Risk Assessment Performed: No VTE Score: 3 VTE Risk Level: Low Risk - Prophylaxis VTE Prophylaxis Ordered?: Yes Types of VTE Prophylaxis: TEDS Knee High Location of Applied Device: Right Leg - VTE Diagnosis Confirmed Treatment or plan recommended: Continue Current Treatment
[2019-01-08 07:47] LABS: Basophils # 0.1 K/mm3 (0-0.2); Basophils % 0.6 % (0.1-2.0); Eosinophils # 0.3 K/mm3 (0.0-0.4); Hematocrit 38.9 % (37.0-47.0); Hemoglobin 12.3 g/dL (12.2-16.2); Lymphocytes # 1.7 K/mm3 (0.7-4.5); Lymphocytes % 18.3 % (10-50); Mean Corpuscular HGB Conc 31.7 g/dL (31.8-35.4); Mean Corpuscular Volume 90.7 fl (81-99); Mean Platelet Volume 9.9 fl (7.4-10.4); Monocytes # 0.5 K/mm3 (0.1-1.0); Monocytes % 5.5 % (1.7-9.3); Neutrophils # 6.6 K/mm3 (1.8-7.8); Neutrophils % 72.6 % (37.0-80.0); Platelet Count 232 K/mm3 (142-424); Red Blood Count 4.29 M/mm3 (4.20-5.40); Red Cell Distribution Width 14.6 % (11.5-17.5); White Blood Count 9.1 K/mm3 (4.8-10.8)
--- NOTE | 2019-01-08 08:35 | Progress Note ---
<Katlyn Nieves - Last Filed: 01/08/19 08:31> Internal Medicine - PN: Subj *Date: 01/08/19 *Time: 08:31 Interval history: Patient states she is doing well. She slept during the night. She has no pain. She is eating without difficulty and has had no nausea no vomiting. Bowels have not moved. She is voiding without difficulty. Her leg does not hurt. Laboratory Tests 10/16/18 01/08/19 01/08/19 11:50 05:09 05:09 WBC 9.1 D RBC 4.29 Hgb 12.3 Hct 38.9 MCV 90.7 MCH 28.8 MCHC 31.7 L Plt Count 232 Neut % (Auto) 72.6 Lymph % (Auto) 18.3 [place] % (Auto) 5.5 Eos % (Auto) 3.0 Sodium 138 Potassium 4.0 Chloride 102 Carbon Dioxide 27 Anion Gap 13.0 BUN 31 H D Creatinine 1.19 H D Est GFR ( Amer) 56 L Urine WBC 50-100 Exam Vital signs and Labs for Last 24 Hours: Temp Pulse Resp BP Pulse Ox 98.2 F 93 H 18 126/57 L 93 L 01/08/19 07:58 01/08/19 07:58 01/08/19 07:58 01/08/19 07:58 01/08/19 07:58 Laboratory Results - last 24 hr 01/07/19 13:04: VBG pH 7.46 H, VBG pCO2 36.9, VBG pO2 99.2 H, VBG HCO3 25.5, VBG Total CO2 26.7, VBG O2 Saturation 97.9 H, VBG Base Excess 1.7 01/07/19 13:10: WBC 13.3 H, RBC 4.79, Hgb 13.4, Hct 42.1, MCV 87.9, MCH 28.0, MCHC 31.8, RDW 14.6, Plt Count 264, MPV 9.3, Neut % (Auto) 80.2 H, Lymph % (Auto) 13.7, [place] % (Auto) 4.8, Eos % (Auto) 1.1, Baso % (Auto) 0.2, Neut # (Auto) 10.6 H, Lymph # (Auto) 1.8, [place] # (Auto) 0.6, Eos # (Auto) 0.2, Baso # (Auto) 0.0 01/07/19 13:10: Sodium 129 L, Potassium 4.3, Chloride 94 L, Carbon Dioxide 26, Anion Gap 13.3, BUN 22 H, Creatinine 0.98, Estimated Creat Clear 112, Estimated GFR 58 L, Est GFR ( Amer) 70, Glucose 333 H, Uric Acid 5.8, Calcium 9.6, Total Bilirubin 0.5, AST 15, ALT 27, Alkaline Phosphatase 80, Total Protein 8.3 H D, Albumin 3.1 L, Globulin 5.2 H, Albumin/Globulin Ratio 0.6 L, Acetone Level None detected 01/07/19 13:10: Lactate 1.9 01/07/19 13:30: Lactate 1.8 01/07/19 17:23: POC Glucose 348 H* 01/07/19 20:55: POC Glucose 167 H 01/08/19 05:09: WBC 9.1 D, RBC 4.29, Hgb 12.3, Hct 38.9, MCV 90.7, MCH 28.8, MCHC 31.7 L, RDW 14.6, Plt Count 232, MPV 9.9, Neut % (Auto) 72.6, Lymph % (Auto) 18.3, [place] % (Auto) 5.5, Eos % (Auto) 3.0, Baso % (Auto) 0.6, Neut # (Auto) 6.6, Lymph # (Auto) 1.7, [place] # (Auto) 0.5, Eos # (Auto) 0.3, Baso # (Auto) 0.1 01/08/19 05:09: Sodium 138, Potassium 4.0, Chloride 102, Carbon Dioxide 27, Anion Gap 13.0, BUN 31 H D, Creatinine 1.19 H D, Estimated Creat Clear 48, Estimated GFR 46 L, Est GFR ( Amer) 56 L, Glucose 137 H D, Calcium 9.0 01/08/19 06:28: POC Glucose 173 H I & O for Last 24 hours: Intake & Output 01/05/19 01/06/19 01/07/19 01/08/19 11:59 11:59 11:59 11:59 Intake Total 2565 / 2565 Balance 2565 / 2565 Weight 255 lb 5 oz - Constitutional no acute distress Comments: Sitting up in the bed and eating breakfast. She appears quite comfortable. - *Routine Respiratory Exam Present: CTA bilaterally (Anteriorly and posteriorly) - *Routine Cardiovascular Exam Present: RRR - *Routine Abdominal Exam Present: soft, normoactive bowel sounds. Absent: tenderness, distended - *Routine Extremities Exam Present: edema. Absent: calf tenderness Comments: Left lower leg with less edema and erythema. Wound noted on ball of the left foot about 1 cm without purulent drainage. Above this she has a 1 cm ecchymotic blister. Right lower leg with less edema and erythema - *Routine Neurological Exam Present: alert, oriented X3 Assessment and Plan (1) Cellulitis of leg, left Current visit: No Status: Acute Category: Medical Code(s): L03.116 - Cellulitis of left lower limb (2) Vomiting Current visit: No Status: Acute Qualifiers: Vomiting type: unspecified Vomiting Intractability: unspecified Nausea presence: with nausea Qualified Code(s): R11.2 - Nausea with vomiting, unspecified Category: Medical Code(s): R11.10 - Vomiting, unspecified (3) Hyponatremia Current visit: Yes Status: Acute Category: Medical Code(s): E87.1 - Hypo- osmolality and hyponatremia (4) Type 2 diabetes mellitus Current visit: Yes Status: Chronic Category: Medical Code(s): E11.9 - Type 2 diabetes mellitus without complications (5) Diabetes type 2, uncontrolled Current visit: No Status: Chronic Category: Medical Code(s): E11.65 - Type 2 diabetes mellitus with hyperglycemia (6) Hyperlipidemia Current visit: No Status: Chronic Category: Medical Code(s): E78.5 - Hyperlipidemia, unspecified (7) Hypertension Current visit: No Status: Chronic Category: Medical Code(s): I10 - Essential (primary) hypertension (8) Wound of left foot Current visit: No Status: Chronic Category: Medical Code(s): S91.302A - Unspecified open wound, left foot, initial encounter (9) Renal insufficiency Current visit: Yes Status: Acute Category: Medical Code(s): N28.9 - Disorder of kidney and ureter, unspecified - Assessment and plan all Dx Assessment and Plan for all problems:: We will continue with current care. Patient request Blastx cream for the wound on her foot as per her blanket washer <Ricky Jones - Last Filed: 01/08/19 08:54> Internal Medicine - PN: Subj *Date: 01/08/19 *Time: 08:54 Exam Vital signs and Labs for Last 24 Hours: Temp Pulse Resp BP Pulse Ox 98.2 F 93 H 18 126/57 L 93 L 01/08/19 07:58 01/08/19 07:58 01/08/19 07:58 01/08/19 07:58 01/08/19 07:58 Laboratory Results - last 24 hr 01/07/19 13:04: VBG pH 7.46 H, VBG pCO2 36.9, VBG pO2 99.2 H, VBG HCO3 25.5, VBG Total CO2 26.7, VBG O2 Saturation 97.9 H, VBG Base Excess 1.7 01/07/19 13:10: WBC 13.3 H, RBC 4.79, Hgb 13.4, Hct 42.1, MCV 87.9, MCH 28.0, MCHC 31.8, RDW 14.6, Plt Count 264, MPV 9.3, Neut % (Auto) 80.2 H, Lymph % (Auto) 13.7, [place] % (Auto) 4.8, Eos % (Auto) 1.1, Baso % (Auto) 0.2, Neut # (Auto) 10.6 H, Lymph # (Auto) 1.8, [place] # (Auto) 0.6, Eos # (Auto) 0.2, Baso # (Auto) 0.0 01/07/19 13:10: Sodium 129 L, Potassium 4.3, Chloride 94 L, Carbon Dioxide 26, Anion Gap 13.3, BUN 22 H, Creatinine 0.98, Estimated Creat Clear 112, Estimated GFR 58 L, Est GFR ( Amer) 70, Glucose 333 H, Uric Acid 5.8, Calcium 9.6, Total Bilirubin 0.5, AST 15, ALT 27, Alkaline Phosphatase 80, Total Protein 8.3 H D, Albumin 3.1 L, Globulin 5.2 H, Albumin/Globulin Ratio 0.6 L, Acetone Level None detected 01/07/19 13:10: Lactate 1.9 01/07/19 13:30: Lactate 1.8 01/07/19 17:23: POC Glucose 348 H* 01/07/19 20:55: POC Glucose 167 H 01/08/19 05:09: WBC 9.1 D, RBC 4.29, Hgb 12.3, Hct 38.9, MCV 90.7, MCH 28.8, MCHC 31.7 L, RDW 14.6, Plt Count 232, MPV 9.9, Neut % (Auto) 72.6, Lymph % (Auto) 18.3, [place] % (Auto) 5.5, Eos % (Auto) 3.0, Baso % (Auto) 0.6, Neut # (Auto) 6.6, Lymph # (Auto) 1.7, [place] # (Auto) 0.5, Eos # (Auto) 0.3, Baso # (Auto) 0.1 01/08/19 05:09: Sodium 138, Potassium 4.0, Chloride 102, Carbon Dioxide 27, Anion Gap 13.0, BUN 31 H D, Creatinine 1.19 H D, Estimated Creat Clear 48, Estimated GFR 46 L, Est GFR ( Amer) 56 L, Glucose 137 H D, Calcium 9.0 01/08/19 06:28: POC Glucose 173 H I & O for Last 24 hours: Intake & Output 01/05/19 01/06/19 01/07/19 01/08/19 23:59 23:59 23:59 23:59 Intake Total 980 / 980 1585 / 1585 Balance 980 / 980 1585 / 1585 Weight 251 lb 9 oz 255 lb 5 oz Assessment and Plan (1) Cellulitis of leg, left Current visit: No Status: Acute Category: Medical Code(s): L03.116 - Cellulitis of left lower limb (2) Vomiting Current visit: No Status: Acute Qualifiers: Vomiting type: unspecified Vomiting Intractability: unspecified Nausea presence: with nausea Qualified Code(s): R11.2 - Nausea with vomiting, unspecified Category: Medical Code(s): R11.10 - Vomiting, unspecified (3) Hyponatremia Current visit: Yes Status: Acute Category: Medical Code(s): E87.1 - Hypo- osmolality and hyponatremia (4) Type 2 diabetes mellitus Current visit: Yes Status: Chronic Category: Medical Code(s): E11.9 - Type 2 diabetes mellitus without complications (5) Diabetes type 2, uncontrolled Current visit: No Status: Chronic Category: Medical Code(s): E11.65 - Type 2 diabetes mellitus with hyperglycemia (6) Hyperlipidemia Current visit: No Status: Chronic Category: Medical Code(s): E78.5 - Hyperlipidemia, unspecified (7) Hypertension Current visit: No Status: Chronic Category: Medical Code(s): I10 - Essential (primary) hypertension (8) Wound of left foot Current visit: No Status: Chronic Category: Medical Code(s): S91.302A - Unspecified open wound, left foot, initial encounter (9) Renal insufficiency Current visit: Yes Status: Acute Category: Medical Code(s): N28.9 - Disorder of kidney and ureter, unspecified - Assessment and plan all Dx Assessment and Plan for all problems:: Saw patient, agree with above note.
[2019-01-09 04:46] LABS: Basophils % 0.6 % (0.1-2.0); Eosinophils # 0.3 K/mm3 (0.0-0.4); Eosinophils % 4.5 % (0.1-12.0); Hematocrit 36.5 % (37.0-47.0); Hemoglobin 11.4 g/dL (12.2-16.2); Lymphocytes # 1.8 K/mm3 (0.7-4.5); Lymphocytes % 26.2 % (10-50); Mean Corpuscular HGB Conc 31.1 g/dL (31.8-35.4); Mean Corpuscular Volume 91.1 fl (81-99); Mean Platelet Volume 9.5 fl (7.4-10.4); Monocytes # 0.4 K/mm3 (0.1-1.0); Monocytes % 6.7 % (1.7-9.3); Neutrophils # 4.1 K/mm3 (1.8-7.8); Platelet Count 219 K/mm3 (142-424); Red Blood Count 4.01 M/mm3 (4.20-5.40); Red Cell Distribution Width 14.7 % (11.5-17.5); White Blood Count 6.7 K/mm3 (4.8-10.8)
[2019-01-09 05:02] LABS: Anion Gap 13.2 mEq/L (5-15); Calcium 8.4 mg/dL (8.5-10.1)
--- NOTE | 2019-01-09 08:21 | Progress Note ---
<Kimberly Alvarez - Last Filed: 01/09/19 08:18> Internal Medicine - PN: Subj *Date: 01/09/19 *Time: 08:18 Interval history: Patient states she is feeling well this morning. She states her left foot did bleed all over her bed, therefore nursing put a new bandage on the foot. She denies any pain today. She states she slept well last night and had a good breakfast this morning. Exam Vital signs and Labs for Last 24 Hours: Temp Pulse Resp BP Pulse Ox 97.9 F 96 H 18 130/55 L 93 L 01/09/19 08:00 01/09/19 08:00 01/09/19 08:00 01/09/19 08:00 01/09/19 08:00 Laboratory Results - last 24 hr 01/08/19 08:56: POC Glucose 166 H 01/08/19 11:50: POC Glucose 131 H 01/08/19 16:14: POC Glucose 148 H 01/08/19 20:35: POC Glucose 185 H 01/09/19 04:37: Vancomycin Trough 10.4 01/09/19 04:37: WBC 6.7 D, RBC 4.01 L, Hgb 11.4 L, Hct 36.5 L, MCV 91.1, MCH 28.3, MCHC 31.1 L, RDW 14.7, Plt Count 219, MPV 9.5, Neut % (Auto) 62.0, Lymph % (Auto) 26.2, [place] % (Auto) 6.7, Eos % (Auto) 4.5, Baso % (Auto) 0.6, Neut # (Auto) 4.1, Lymph # (Auto) 1.8, [place] # (Auto) 0.4, Eos # (Auto) 0.3, Baso # (Auto) 0.0 01/09/19 04:37: Sodium 141, Potassium 4.2, Chloride 106, Carbon Dioxide 26, Anion Gap 13.2, BUN 28 H, Creatinine 0.95 D, Estimated Creat Clear 60, Estimated GFR 60, Est GFR ( Amer) 73 D, Glucose 164 H, Calcium 8.4 L 01/09/19 06:02: POC Glucose 143 H I & O for Last 24 hours: Intake & Output 01/06/19 01/07/19 01/08/1901/09/19 11:59 11:59 11:59 11:59 Intake Total 2565 / 2565 3982 / 3982 Balance 2565 / 2565 3982 / 3982 Weight 255 lb 5 oz 256 lb 8 oz Microbiology Reports for the Last 24 Hours: Microbiology 01/07/19 13:10 Blood Blood Culture - Preliminary - Constitutional no acute distress - *Routine Respiratory Exam Present: CTA bilaterally - *Routine Cardiovascular Exam Present: RRR - *Routine Abdominal Exam Present: soft, normoactive bowel sounds. Absent: tenderness - *Routine Extremities Exam Absent: cyanosis, clubbing, edema - *Routine Skin Exam Comments: left foot with a clean and dry dressing in place Assessment and Plan (1) Cellulitis of leg, left Current visit: No Status: Acute Category: Medical Code(s): L03.116 - Cellulitis of left lower limb (2) Vomiting Current visit: No Status: Acute Qualifiers: Vomiting type: unspecified Vomiting Intractability: unspecified Nausea presence: with nausea Qualified Code(s): R11.2 - Nausea with vomiting, unspecified Category: Medical Code(s): R11.10 - Vomiting, unspecified (3) Hyponatremia Current visit: Yes Status: Acute Category: Medical Code(s): E87.1 - Hypo- osmolality and hyponatremia (4) Type 2 diabetes mellitus Current visit: Yes Status: Chronic Category: Medical Code(s): E11.9 - Type 2 diabetes mellitus without complications (5) Diabetes type 2, uncontrolled Current visit: No Status: Chronic Category: Medical Code(s): E11.65 - Type 2 diabetes mellitus with hyperglycemia (6) Hyperlipidemia Current visit: No Status: Chronic Category: Medical Code(s): E78.5 - Hyperlipidemia, unspecified (7) Hypertension Current visit: No Status: Chronic Category: Medical Code(s): I10 - Essential (primary) hypertension (8) Wound of left foot Current visit: No Status: Chronic Category: Medical Code(s): S91.302A - Unspecified open wound, left foot, initial encounter (9) Renal insufficiency Current visit: Yes Status: Acute Category: Medical Code(s): N28.9 - Disorder of kidney and ureter, unspecified (10) Positive blood culture Current visit: Yes Status: Acute Category: Medical Code(s): R78.81 - Bacteremia - Assessment and plan all Dx Assessment and Plan for all problems:: We will consult PT for wound care of the patient's foot. Her preliminary blood cultures are positive for staph aureus. We will continue antibiotics. <Ricky Jones - Last Filed: 01/09/19 08:22> Internal Medicine - PN: Subj *Date: 01/09/19 *Time: 08:22 Exam Vital signs and Labs for Last 24 Hours: Temp Pulse Resp BP Pulse Ox 97.9 F 96 H 18 130/55 L 93 L 01/09/19 08:00 01/09/19 08:00 01/09/19 08:00 01/09/19 08:00 01/09/19 08:00 Laboratory Results - last 24 hr 01/08/19 08:56: POC Glucose 166 H 01/08/19 11:50: POC Glucose 131 H 01/08/19 16:14: POC Glucose 148 H 01/08/19 20:35: POC Glucose 185 H 01/09/19 04:37: Vancomycin Trough 10.4 01/09/19 04:37: WBC 6.7 D, RBC 4.01 L, Hgb 11.4 L, Hct 36.5 L, MCV 91.1, MCH 28.3, MCHC 31.1 L, RDW 14.7, Plt Count 219, MPV 9.5, Neut % (Auto) 62.0, Lymph % (Auto) 26.2, [place] % (Auto) 6.7, Eos % (Auto) 4.5, Baso % (Auto) 0.6, Neut # (Auto) 4.1, Lymph # (Auto) 1.8, [place] # (Auto) 0.4, Eos # (Auto) 0.3, Baso # (Auto) 0.0 01/09/19 04:37: Sodium 141, Potassium 4.2, Chloride 106, Carbon Dioxide 26, Anion Gap 13.2, BUN 28 H, Creatinine 0.95 D, Estimated Creat Clear 60, Estimated GFR 60, Est GFR ( Amer) 73 D, Glucose 164 H, Calcium 8.4 L 01/09/19 06:02: POC Glucose 143 H I & O for Last 24 hours: Intake & Output 07/07/19 07/08/19 07/09/19 07/10/19 23:59 23:59 23:59 23:59 Intake Total / 2064 3502 / 3502 Balance 980 / 980 2064 3502 / 3502 Weight 251 lb 9 oz 255 lb 5 oz 256 lb 8 oz Microbiology Reports for the Last 24 Hours: Microbiology 01/07/19 13:10 Blood Blood Culture - Preliminary Assessment and Plan (1) Cellulitis of leg, left Current visit: No Status: Acute Category: Medical Code(s): L03.116 - Cellulitis of left lower limb (2) Vomiting Current visit: No Status: Acute Qualifiers: Vomiting type: unspecified Vomiting Intractability: unspecified Nausea presence: with nausea Qualified Code(s): R11.2 - Nausea with vomiting, unspecified Category: Medical Code(s): R11.10 - Vomiting, unspecified (3) Hyponatremia Current visit: Yes Status: Acute Category: Medical Code(s): E87.1 - Hypo- osmolality and hyponatremia (4) Type 2 diabetes mellitus Current visit: Yes Status: Chronic Category: Medical Code(s): E11.9 - Type 2 diabetes mellitus without complications (5) Diabetes type 2, uncontrolled Current visit: No Status: Chronic Category: Medical Code(s): E11.65 - Type 2 diabetes mellitus with hyperglycemia (6) Hyperlipidemia Current visit: No Status: Chronic Category: Medical Code(s): E78.5 - Hyperlipidemia, unspecified (7) Hypertension Current visit: No Status: Chronic Category: Medical Code(s): I10 - Essential (primary) hypertension (8) Wound of left foot Current visit: No Status: Chronic Category: Medical Code(s): S91.302A - Unspecified open wound, left foot, initial encounter (9) Renal insufficiency Current visit: Yes Status: Acute Category: Medical Code(s): N28.9 - Disorder of kidney and ureter, unspecified (10) Positive blood culture Current visit: Yes Status: Acute Category: Medical Code(s): R78.81 - Bacteremia - Assessment and plan all Dx Assessment and Plan for all problems:: Saw patient, agree with above note.
--- NOTE | 2019-01-09 14:10 | Pharmacy Consult Notes ---
- Pharmacy Consult Date: 01/09/19 Time: 14:07 Referring provider: DR. PACK Reason for Consult:: VANCOMYCIN TROUGH LEVEL Allergies and ADEs:: Allergies Allergy/AdvReac Type Severity Reaction Status Date / Time No Known Allergies Allergy Verified 09/18/18 09:21 Home Medications:: Home Medications Medication Instructions Recorded Confirmed Type Ascorbic Acid [Vitamin C] 1,000 mg PO DAILY 07/05/17 01/07/19 History Atorvastatin Calcium [Atorvastatin 20 mg PO HS 07/05/17 01/08/19 History 20mg Tab] Fluoxetine HCl [Sarafem] 20 mg PO DAILY 07/05/17 01/07/19 History Gabapentin [Gabapentin 300mg Cap] 300 mg PO TID 07/05/17 01/07/19 History Insulin Aspart [Novolog Flexpen] 0 unit SQ DIRECTED 07/05/17 01/08/19 History Insulin Glargine,Hum.rec.anlog 100 unit SQ BID 07/05/17 01/07/19 History [Lantus Insulin 100units/mL 10mL vial] Lisinopril [Lisinopril 20mg Tab] 20 mg PO DAILY 07/05/17 01/07/19 History Meloxicam [Mobic 7.5mg Tab] 7.5 mg PO DAILY 07/05/17 01/07/19 History Metformin HCl [Glucophage 500mg 1,000 mg PO BID 07/05/17 01/07/19 History Tablet] Metoprolol Succinate [Toprol XL 50 mg PO DAILY 07/05/17 01/07/19 History 50mg Tablet] Multivitamin [Multivitamins] 1 each PO DAILY 07/05/17 01/07/19 History Vitamin B Complex 1 each PO DAILY 07/05/17 01/07/19 History ARIPiprazole [Abilify 2mg Tablet] 2 mg PO DAILY 10/09/18 01/07/19 History Aspirin [Aspirin 325mg Tab] 325 mg PO DAILY 10/09/18 01/07/19 History Biotin 5 mg PO TID 10/09/18 01/07/19 History Calcium Carbonate/Vitamin D3 1 each PO BID 10/09/18 01/07/19 History [Calcium 600-Vit D3 800 Tablet] Cholecalciferol (Vitamin D3) 2,000 unit PO DAILY 10/09/18 01/07/19 History [Vitamin D3 1,000 Unit Cap] Cinnamon Bark/Chromium Picolin 2 cap PO BID 10/09/18 01/07/19 History [Cinnamon Plus Chromium Capsule] Duloxetine HCl 60 mg PO DAILY 10/09/18 01/07/19 History Fenofibric Acid (Choline) 135 mg PO DAILY 10/09/18 01/07/19 History [Fenofibric Acid] Gluc [place]/Chondro Gallegos A/Vit C/Mn 3 each PO DAILY 10/09/18 01/08/19 History [Glucosamine Chondroitin Tab] Krill Oil/[place]-3/Dha/Epa [[place]-3 1 each PO DAILY 10/09/18 01/07/19 History Krill Oil Softgel] L.acidoph,Paracasei, B.lactis 1 each PO DAILY 10/09/18 01/07/19 History [Probiotic] Sitagliptin Phosphate [Januvia 100 mg PO DAILY 10/09/18 01/07/19 History 100mg tablet] Ubidecarenone [Coq-10] 100 mg PO DAILY 10/09/18 01/07/19 History Anastrozole [Arimidex] 1 mg PO DAILY 10/10/18 01/07/19 History Miscellaneous [Miscellaneous 1 applicatio TP DAILY 01/08/19 01/08/19 History topical] Height: 1.68 m Weight: 116.346 kg Laboratory Results:: Laboratory Results - last 24 hr 01/07/19 13:10: Lactate 1.9 01/08/19 16:14: POC Glucose 148 H 01/08/19 20:35: POC Glucose 185 H 01/09/19 04:37: Vancomycin Trough 10.4 01/09/19 04:37: WBC 6.7 D, RBC 4.01 L, Hgb 11.4 L, Hct 36.5 L, MCV 91.1, MCH 28.3, MCHC 31.1 L, RDW 14.7, Plt Count 219, MPV 9.5, Neut % (Auto) 62.0, Lymph % (Auto) 26.2, [place] % (Auto) 6.7, Eos % (Auto) 4.5, Baso % (Auto) 0.6, Neut # (Auto) 4.1, Lymph # (Auto) 1.8, [place] # (Auto) 0.4, Eos # (Auto) 0.3, Baso # (Auto) 0.0 01/09/19 04:37: Sodium 141, Potassium 4.2, Chloride 106, Carbon Dioxide 26, Anion Gap 13.2, BUN 28 H, Creatinine 0.95 D, Estimated Creat Clear 60, Estimated GFR 60, Est GFR ( Amer) 73 D, Glucose 164 H, Calcium 8.4 L 01/09/19 06:02: POC Glucose 143 H 01/09/19 11:43: POC Glucose 170 H Medical History: Reports:: Cancer, Depression, Diabetes Mellitus Type 2, Hyperlipidemia, Hypertension, Palpitations, Peripheral Vascular Disease, Renal Insufficiency, Urinary Tract Infection Denies:: Diabetes Mellitus Type 1, Internal Pacemaker, Lung Disease, Seizures Assessment and Plan (1) Cellulitis of leg, left Current visit: No Status: Acute Category: Medical Code(s): L03.116 - Cellulitis of left lower limb (2) Vomiting Current visit: No Status: Acute Qualifiers: Vomiting type: unspecified Vomiting Intractability: unspecified Nausea presence: with nausea Qualified Code(s): R11.2 - Nausea with vomiting, unspecified Category: Medical Code(s): R11.10 - Vomiting, unspecified (3) Hyponatremia Current visit: Yes Status: Acute Category: Medical Code(s): E87.1 - Hypo- osmolality and hyponatremia (4) Type 2 diabetes mellitus Current visit: Yes Status: Chronic Category: Medical Code(s): E11.9 - Type 2 diabetes mellitus without complications (5) Diabetes type 2, uncontrolled Current visit: No Status: Chronic Category: Medical Code(s): E11.65 - Type 2 diabetes mellitus with hyperglycemia (6) Hyperlipidemia Current visit: No Status: Chronic Category: Medical Code(s): E78.5 - Hyperlipidemia, unspecified (7) Hypertension Current visit: No Status: Chronic Category: Medical Code(s): I10 - Essential (primary) hypertension (8) Wound of left foot Current visit: No Status: Chronic Category: Medical Code(s): S91.302A - Unspecified open wound, left foot, initial encounter (9) Renal insufficiency Current visit: Yes Status: Acute Category: Medical Code(s): N28.9 - Disorder of kidney and ureter, unspecified (10) Positive blood culture Current visit: Yes Status: Acute Category: Medical Code(s): R78.81 - Bacteremia - Assessment and plan all Dx Assessment and Plan for all problems:: BASED ON PATIENT'S VANCOMYCIN TROUGH LEVEL OF 10.4 MCG/ML THIS AM PRIOR TO 3RD DOSE, RECOMMEND CONTINUING WITH CURRENT DOSE OF VANCOMYCIN 2000 MG Q18H. PHARMACY WILL FOLLOW DAILY AND ADJUST APPROPRIATE. GLEN PUGH, PHARMD
--- NOTE | 2019-01-09 19:14 | Consult Report ---
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 Patient came to [facility] instead. She was admitted for bacteremia. Wound care consulted today and called me. Patient had a plantar sub-first metatarsal ulceration with concern of possible underlying deeper infection. Patient reports a history of repeat left lower extremity ulcerations. She has a history of a ulcer on the leg with a graft. She reports feeling better and the leg looking better today. Review of Systems - Review of Systems Review of systems:: pertinent systems reviewed and negative unless documented below - Constitutional Denies chills, Denies fatigue - Eyes Denies blind spots - ENT Denies abnormal hearing - *Cardiovascular Denies chest pain - *Respiratory Denies shortness of breath - *Gastrointestinal Denies abdominal pain, Denies nausea, Denies vomiting - *Genitourinary Denies abnormal periods - *Musculoskeletal Reports joint swelling - Integumentary/Breasts Reports dry skin, Reports skin ulcer - *Neurologic Reports tingling/numbness/burning sensations, Denies fainting - Endocrine Reports cold intolerance [facility] History I have reviewed the patient's past medical history: Yes Medical History: Reports:: Cancer, Depression, Diabetes Mellitus Type 2, Hyperlipidemia, Hypertension, Palpitations, Peripheral Vascular Disease, Renal Insufficiency, Urinary Tract Infection Denies:: Diabetes Mellitus Type 1, Internal Pacemaker, Lung Disease, Seizures *Have you ever received a pneumonia vaccine?: Yes *Have you received a flu vaccine this season?: Yes Other Medical History: Reports: Arthritis (osteoarthritis) Laterality Cases: Left: Carpal Tunnel Release, Lumpectomy, Other, Bilateral: Breast Biopsy, Tonsillectomy Other Surgeries: Yes: Cholecystectomy, Colonoscopy, Other (Left lumpectomy). No: Pacemaker Amputation: No Fractures: No - *Social History Educational Level: Completed High School Smoking Status: Never smoker Alcohol Intake: never Substance Use Type: denies use *Occupational Status:: disabled Housing: house Household Members: spouse *Travel in the last 8 weeks: None - Psychiatric History Expresses thoughts of harming self/others: None Pschychiatric History:: Reports:: Depression Family Hx:: Hypertension, Diabetes, Coronary Artery Disease, Asthma Meds Home Medications Medication Instructions Recorded Confirmed Type Ascorbic Acid [Vitamin C] 1,000 mg PO DAILY 07/05/17 01/07/19 History Atorvastatin Calcium [Atorvastatin 20 mg PO HS 07/05/17 01/08/19 History 20mg Tab] Fluoxetine HCl [Sarafem] 20 mg PO DAILY 07/05/17 01/07/19 History Gabapentin [Gabapentin 300mg Cap] 300 mg PO TID 07/05/17 01/07/19 History Insulin Aspart [Novolog Flexpen] 0 unit SQ DIRECTED 07/05/17 01/08/19 History Insulin Glargine,Hum.rec.anlog 100 unit SQ BID 07/05/17 01/07/19 History [Lantus Insulin 100units/mL 10mL vial] Lisinopril [Lisinopril 20mg Tab] 20 mg PO DAILY 07/05/17 01/07/19 History Meloxicam [Mobic 7.5mg Tab] 7.5 mg PO DAILY 07/05/17 01/07/19 History Metformin HCl [Glucophage 500mg 1,000 mg PO BID 07/05/17 01/07/19 History Tablet] Metoprolol Succinate [Toprol XL 50 mg PO DAILY 07/05/17 01/07/19 History 50mg Tablet] Multivitamin [Multivitamins] 1 each PO DAILY 07/05/17 01/07/19 History Vitamin B Complex 1 each PO DAILY 07/05/17 01/07/19 History ARIPiprazole [Abilify 2mg Tablet] 2 mg PO DAILY 10/09/18 01/07/19 History Aspirin [Aspirin 325mg Tab] 325 mg PO DAILY 10/09/18 01/07/19 History Biotin 5 mg PO TID 10/09/18 01/07/19 History Calcium Carbonate/Vitamin D3 1 each PO BID 10/09/18 01/07/19 History [Calcium 600-Vit D3 800 Tablet] Cholecalciferol (Vitamin D3) 2,000 unit PO DAILY 10/09/18 01/07/19 History [Vitamin D3 1,000 Unit Cap] Cinnamon Bark/Chromium Picolin 2 cap PO BID 10/09/18 01/07/19 History [Cinnamon Plus Chromium Capsule] Duloxetine HCl 60 mg PO DAILY 10/09/18 01/07/19 History Fenofibric Acid (Choline) 135 mg PO DAILY 10/09/18 01/07/19 History [Fenofibric Acid] Gluc [place]leg[place]/Chondro Gallegos A/Vit C/Mn 3 each PO DAILY 10/09/18 01/08/19 History [Glucosamine Chondroitin Tab] Krill Oil/[place]-3/Dha/Epa [[place]-3 1 each PO DAILY 10/09/18 01/07/19 History Krill Oil Softgel] L.acidoph,Paracasei, B.lactis 1 each PO DAILY 10/09/18 01/07/19 History [Probiotic] Sitagliptin Phosphate [Januvia 100 mg PO DAILY 10/09/18 01/07/19 History 100mg tablet] Ubidecarenone [Coq-10] 100 mg PO DAILY 10/09/18 01/07/19 History Anastrozole [Arimidex] 1 mg PO DAILY 10/10/18 01/07/19 History Miscellaneous [Miscellaneous 1 applicatio TP DAILY 01/08/19 01/08/19 History topical] Allergies Allergy/AdvReac Type Severity Reaction Status Date / Time No Known Allergies Allergy Verified 09/18/18 09:21 Exam Vital signs and Labs for Last 24 Hours: Temp Pulse Resp BP Pulse Ox 98.1 F 89 17 157/72 H 97 01/09/19 16:00 01/09/19 16:00 01/09/19 16:00 01/09/19 16:00 01/09/19 16:00 Laboratory Results - last 24 hr 01/07/19 13:10: Lactate 1.9 01/08/19 20:35: POC Glucose 185 H 01/09/19 04:37: Vancomycin Trough 10.4 01/09/19 04:37: WBC 6.7 D, RBC 4.01 L, Hgb 11.4 L, Hct 36.5 L, MCV 91.1, MCH 28.3, MCHC 31.1 L, RDW 14.7, Plt Count 219, MPV 9.5, Neut % (Auto) 62.0, Lymph % (Auto) 26.2, [place] % (Auto) 6.7, Eos % (Auto) 4.5, Baso % (Auto) 0.6, Neut # (Auto) 4.1, Lymph # (Auto) 1.8, [place] # (Auto) 0.4, Eos # (Auto) 0.3, Baso # (Auto) 0.0 01/09/19 04:37: Sodium 141, Potassium 4.2, Chloride 106, Carbon Dioxide 26, Anion Gap 13.2, BUN 28 H, Creatinine 0.95 D, Estimated Creat Clear 60, Estimated GFR 60, Est GFR ( Amer) 73 D, Glucose 164 H, Calcium 8.4 L 01/09/19 06:02: POC Glucose 143 H 01/09/19 11:43: POC Glucose 170 H 01/09/19 16:18: POC Glucose 124 H I & O for Last 24 hours: Intake & Output 01/07/19 01/08/19 01/09/19 01/10/19 11:59 11:59 11:59 11:59 Intake Total 2565 / 2565 3982 / 3982 1802 / 1802 Balance 2565 / 2565 3982 / 3982 1802 / 1802 Weight 255 lb 5 oz 256 lb 8 oz 256 lb 7.984 oz Microbiology Reports for the Last 24 Hours: Microbiology 01/07/19 13:10 Blood Blood Culture - Preliminary NO GROWTH AFTER 48 HOURS 01/09/19 11:30 Foot,Left - Drainage Gram Stain - Final 01/09/19 11:00 Foot,Left Gram Stain - Final 01/07/19 13:10 Blood Blood Culture - Preliminary Gram Positive Cocci - *Routine HEENT Exam Head: Present: normocephalic - *Routine Neck Exam Present: supple - *Routine Respiratory Exam Present: accessory muscle use - *Routine Cardiovascular Exam Present: RRR - *Routine Abdominal Exam Present: soft - *Routine Rectal Exam Patient deferred: visual exam - *Routine Exam Patient deferred: external exam - *Routine Extremities Exam Present: edema, extremity cold to touch. Absent: normal capillary refill - *Routine Skin Exam Present: erythema, pallor, scars, wounds - *Routine Neurological Exam Present: alert, moving all extremities - Detailed Lower Extremity Exam Bottom foot image: 1 - Sub-first metatarsal ulcer around 110 to 1 cm. Wound base hyper granular. There was a blister noted to the dorsal medial aspect of the first metatarsal. Blister deroofed there was ulceration noted underlying the blister with purulent drainage. The blister ulcer did track and connect down to the sub-first metatarsal ulcer. No probe to bone. No deep purulence expressed. Mild malodor. Periwound erythema noted. Results - Labs Result Diagrams: 01/09/19 04:37 01/09/19 04:37 Labs: Abnormal lab results 01/08/19 01/09/19 01/09/19 Range/Units 20:35 04:37 04:37 RBC 4.01 L (4.20-5.40) M/mm3 Hgb 11.4 L (12.2-16.2) g/dL Hct 36.5 L (37.0-47.0) % MCHC 31.1 L (31.8-35.4) g/dL BUN 28 H (7-18) mg/dL Glucose 164 H (74-106) mg/dL POC Glucose 185 H (70-110) Calcium 8.4 L (8.5-10.1) mg/dL 01/09/19 01/09/19 01/09/19 Range/Units 06:02 11:43 16:18 RBC (4.20-5.40) M/mm3 Hgb (12.2-16.2) g/dL Hct (37.0-47.0) % MCHC (31.8-35.4) g/dL BUN (7-18) mg/dL Glucose (74-106) mg/dL POC Glucose 143 H 170 H 124 H (70-110) Calcium (8.5-10.1) mg/dL H & H 01/07/19 01/08/19 01/09/19 Range/Units 13:10 05:09 04:37 Hgb 13.4 12.3 11.4 L (12.2-16.2) g/dL Hct 42.1 38.9 36.5 L (37.0-47.0) % All other labs normal. Assessment and Plan (1) Cellulitis of leg, left Current visit: No Status: Acute Category: Medical Code(s): L03.116 - Cellulitis of left lower limb (2) Vomiting Current visit: No Status: Acute Qualifiers: Vomiting type: unspecified Vomiting Intractability: unspecified Nausea presence: with nausea Qualified Code(s): R11.2 - Nausea with vomiting, unspecified Category: Medical Code(s): R11.10 - Vomiting, unspecified (3) Hyponatremia Current visit: Yes Status: Acute Category: Medical Code(s): E87.1 - Hypo- osmolality and hyponatremia (4) Type 2 diabetes mellitus Current visit: Yes Status: Chronic Category: Medical Code(s): E11.9 - Type 2 diabetes mellitus without complications (5) Diabetes type 2, uncontrolled Current visit: No Status: Chronic Category: Medical Code(s): E11.65 - Type 2 diabetes mellitus with hyperglycemia (6) Hyperlipidemia Current visit: No Status: Chronic Category: Medical Code(s): E78.5 - Hyperlipidemia, unspecified (7) Hypertension Current visit: No Status: Chronic Category: Medical Code(s): I10 - Essential (primary) hypertension (8) Wound of left foot Current visit: No Status: Chronic Category: Medical Code(s): S91.302A - Unspecified open wound, left foot, initial encounter (9) Renal insufficiency Current visit: Yes Status: Acute Category: Medical Code(s): N28.9 - Disorder of kidney and ureter, unspecified (10) Positive blood culture Current visit: Yes Status: Acute Category: Medical Code(s): R78.81 - Bacteremia - Assessment and plan all Dx Assessment and Plan for all problems:: 1. Left foot diabetic ulcer 2. Left lower extremity cellulitis 3. Left first MPJ blister, infection 4. Positive blood cultures Infected Wound: Left sub-first metatarsal ulcer and medial MPJ ulcer Bedside incision and drainage performed today by myself. I discussed with the patient the importance of proper hygiene and maintaining a clean healthy wound bed to avoid the infection spreading. The wound was cleansed with betadine. Utilizing a 15 blade, the blister was sharply excised. Immediately 3 cc of purulent malodorous drainage was noted. Wound culture taken. 15 blade was then utilized to sharply debride the blister through skin into subcutaneous tissue. There was an underlying ulcer noted. Essentially ulcer measured about 1 x 1 cm and tracked inferiorly to the sub-first metatarsal ulceration. Sub-first metatarsal ulceration measured approximately 1 x 1 cm and was hyper granular wound base. Neither ulcer tract to the bone. There was no deep purulence expressed. Urvashi-wound cellulitis noted. Non-palpable popliteal lymph nodes. The area was flushed and Betadine packing inserted connecting the 2 ulcerations. 1. Dressing applied: betadine packing dry sterile dressing 2. Wound care instructions given: change dressing daily 3. NWB in post op shoe with DME assistance 4. Order infection panel: Monitor CBC, wound culture. 5. Continue IV antibiotics 6. Call the office immediately if pain increases or signs of infection worsen 7. Follow up for daily dressing changes with wound care 8. Once patient is discharged she can follow-up with her boiler house operator outpatient or with the wound care center 9. No surgical intervention warranted at this time
--- NOTE | 2019-01-10 08:17 | Progress Note ---
<Kimberly Alvarez - Last Filed: 01/10/19 08:13> Internal Medicine - PN: Subj *Date: 01/10/19 *Time: 08:13 Interval history: Dr. Smith did see the patient yesterday. She performed incision and drainage of the foot and packed it. The patient has minimal pain. She states she did not rest very well last night. She did eat her breakfast this morning. Exam Vital signs and Labs for Last 24 Hours: Temp Pulse Resp BP Pulse Ox 97.8 F 87 16 153/71 H 98 01/10/19 07:39 01/10/19 07:39 01/10/19 07:39 01/10/19 07:39 01/10/19 07:39 Laboratory Results - last 24 hr 01/07/19 13:10: Lactate 1.9 01/09/19 11:43: POC Glucose 170 H 01/09/19 16:18: POC Glucose 124 H 01/09/19 20:57: POC Glucose 169 H 01/10/19 06:41: POC Glucose 93 I & O for Last 24 hours: Intake & Output 01/07/19 01/08/19 01/09/19 01/10/19 11:59 11:59 11:59 11:59 Intake Total 2565 / 2565 3982 / 3982 3067 / 3067 Output Total 200 / 200 Balance 2565 / 2565 3982 / 3982 2867 / 2867 Weight 255 lb 5 oz 256 lb 8 oz 260 lb Microbiology Reports for the Last 24 Hours: Microbiology 01/07/19 13:10 Blood Blood Culture - Preliminary NO GROWTH AFTER 48 HOURS 01/09/19 11:30 Foot,Left - Drainage Gram Stain - Final 01/09/19 11:00 Foot,Left Gram Stain - Final 01/07/19 13:10 Blood Blood Culture - Preliminary Gram Positive Cocci - Constitutional no acute distress - *Routine Respiratory Exam Present: CTA bilaterally - *Routine Cardiovascular Exam Present: RRR - *Routine Abdominal Exam Present: soft, normoactive bowel sounds. Absent: tenderness - *Routine Extremities Exam Present: edema (LLE) - *Routine Skin Exam Present: warm. Absent: rash Comments: left foot wrapped Assessment and Plan (1) Cellulitis of leg, left Current visit: No Status: Acute Category: Medical Code(s): L03.116 - Cellulitis of left lower limb (2) Vomiting Current visit: No Status: Acute Qualifiers: Vomiting type: unspecified Vomiting Intractability: unspecified Nausea presence: with nausea Qualified Code(s): R11.2 - Nausea with vomiting, unspecified Category: Medical Code(s): R11.10 - Vomiting, unspecified (3) Hyponatremia Current visit: Yes Status: Acute Category: Medical Code(s): E87.1 - Hypo- osmolality and hyponatremia (4) Type 2 diabetes mellitus Current visit: Yes Status: Chronic Category: Medical Code(s): E11.9 - Type 2 diabetes mellitus without complications (5) Diabetes type 2, uncontrolled Current visit: No Status: Chronic Category: Medical Code(s): E11.65 - Type 2 diabetes mellitus with hyperglycemia (6) Hyperlipidemia Current visit: No Status: Chronic Category: Medical Code(s): E78.5 - Hyperlipidemia, unspecified (7) Hypertension Current visit: No Status: Chronic Category: Medical Code(s): I10 - Essential (primary) hypertension (8) Wound of left foot Current visit: No Status: Chronic Category: Medical Code(s): S91.302A - Unspecified open wound, left foot, initial encounter (9) Renal insufficiency Current visit: Yes Status: Acute Category: Medical Code(s): N28.9 - Disorder of kidney and ureter, unspecified (10) Positive blood culture Current visit: Yes Status: Acute Category: Medical Code(s): R78.81 - Bacteremia - Assessment and plan all Dx Assessment and Plan for all problems:: We will continue wound care and IV antibiotics. Will await final wound culture results. <Ricky Jones - Last Filed: 01/10/19 08:20> Internal Medicine - PN: Subj *Date: 01/10/19 *Time: 08:19 Exam Vital signs and Labs for Last 24 Hours: Temp Pulse Resp BP Pulse Ox 97.8 F 87 16 153/71 H 98 01/10/19 07:39 01/10/19 07:39 01/10/19 07:39 01/10/19 07:39 01/10/19 07:39 Laboratory Results - last 24 hr 01/07/19 13:10: Lactate 1.9 01/09/19 11:43: POC Glucose 170 H 01/09/19 16:18: POC Glucose 124 H 01/09/19 20:57: POC Glucose 169 H 01/10/19 06:41: POC Glucose 93 I & O for Last 24 hours: Intake & Output 01/07/19 01/08/19 01/09/19 01/10/19 23:59 23:59 23:59 23:59 Intake Total 980 / 980 2064 6209 / 6209 1797 / 1797 Output Total 200 / 200 Balance 980 / 980 2064 6209 / 6209 1597 / 1597 Weight 251 lb 9 oz 255 lb 5 oz 256 lb 7.984 oz 260 lb Microbiology Reports for the Last 24 Hours: Microbiology 01/07/19 13:10 Blood Blood Culture - Preliminary NO GROWTH AFTER 48 HOURS 01/09/19 11:30 Foot,Left - Drainage Gram Stain - Final 01/09/19 11:00 Foot,Left Gram Stain - Final 01/07/19 13:10 Blood Blood Culture - Preliminary Gram Positive Cocci Assessment and Plan (1) Cellulitis of leg, left Current visit: No Status: Acute Category: Medical Code(s): L03.116 - Cellulitis of left lower limb (2) Vomiting Current visit: No Status: Acute Qualifiers: Vomiting type: unspecified Vomiting Intractability: unspecified Nausea presence: with nausea Qualified Code(s): R11.2 - Nausea with vomiting, unsp ecified Category: Medical Code(s): R11.10 - Vomiting, unspecified (3) Hyponatremia Current visit: Yes Status: Acute Category: Medical Code(s): E87.1 - Hypo- osmolality and hyponatremia (4) Type 2 diabetes mellitus Current visit: Yes Status: Chronic Category: Medical Code(s): E11.9 - Type 2 diabetes mellitus without complications (5) Diabetes type 2, uncontrolled Current visit: No Status: Chronic Category: Medical Code(s): E11.65 - Type 2 diabetes mellitus with hyperglycemia (6) Hyperlipidemia Current visit: No Status: Chronic Category: Medical Code(s): E78.5 - Hyperlipidemia, unspecified (7) Hypertension Current visit: No Status: Chronic Category: Medical Code(s): I10 - Essential (primary) hypertension (8) Wound of left foot Current visit: No Status: Chronic Category: Medical Code(s): S91.302A - U nspecified open wound, left foot, initial encounter (9) Renal insufficiency Current visit: Yes Status: Acute Category: Medical Code(s): N28.9 - Disorder of kidney and ureter, unspecified (10) Positive blood culture Current visit: Yes Status: Acute Category: Medical Code(s): R78.81 - Bacteremia - Assessment and plan all Dx Assessment and Plan for all problems:: Saw patient, agree with above note.
--- NOTE | 2019-01-10 11:51 | Progress Note ---
Internal Medicine - PN: Subj *Date: 01/10/19 *Time: 11:51 Exam Vital signs and Labs for Last 24 Hours: Temp Pulse Resp BP Pulse Ox 97.8 F 87 16 153/71 H 98 01/10/19 07:39 01/10/19 07:39 01/10/19 07:39 01/10/19 07:39 01/10/19 07:39 Laboratory Results - last 24 hr 01/09/19 11:43: POC Glucose 170 H 01/09/19 16:18: POC Glucose 124 H 01/09/19 20:57: POC Glucose 169 H 01/10/19 06:41: POC Glucose 93 01/10/19 08:21: POC Glucose 131 H 01/10/19 11:06: POC Glucose 168 H I & O for Last 24 hours: Intake & Output 01/07/19 01/08/19 01/09/19 01/10/19 23:59 23:59 23:59 23:59 Intake Total 980 / 980 2064 6209 / 6209 1797 / 1797 Output Total 200 / 200 Balance 980 / 980 2064 6209 / 6209 1597 / 1597 Weight 114.107 kg 115.808 kg 116.346 kg 117.934 kg Microbiology Reports for the Last 24 Hours: Microbiology 01/09/19 11:30 Foot,Left - Drainage Gram Stain - Final 01/09/19 11:30 Foot,Left - Drainage Wound Culture - Preliminary 01/09/19 11:00 Foot,Left Gram Stain - Final 01/09/19 11:00 Foot,Left Wound Culture - Preliminary 01/07/19 13:10 Blood Blood Culture - Preliminary Staphylococcus aureus 01/07/19 13:10 Blood Blood Culture - Preliminary NO GROWTH AFTER 48 HOURS Assessment and Plan (1) Cellulitis of leg, left Current visit: No Status: Acute Category: Medical Code(s): L03.116 - Cellulitis of left lower limb (2) Vomiting Current visit: No Status: Acute Qualifiers: Vomiting type: unspecified Vomiting Intractability: unspecified Nausea presence: with nausea Qualified Code(s): R11.2 - Nausea with vomiting, unspecified Category: Medical Code(s): R11.10 - Vomiting, unspecified (3) Hyponatremia Current visit: Yes Status: Acute Category: Medical Code(s): E87.1 - Hypo- osmolality and hyponatremia (4) Type 2 diabetes mellitus Current visit: Yes Status: Chronic Category: Medical Code(s): E11.9 - Type 2 diabetes mellitus without complications (5) Diabetes type 2, uncontrolled Current visit: No Status: Chronic Category: Medical Code(s): E11.65 - Type 2 diabetes mellitus with hyperglycemia (6) Hyperlipidemia Current visit: No Status: Chronic Category: Medical Code(s): E78.5 - Hyperlipidemia, unspecified (7) Hypertension Current visit: No Status: Chronic Category: Medical Code(s): I10 - Essential (primary) hypertension (8) Wound of left foot Current visit: No Status: Chronic Category: Medical Code(s): S91.302A - Unspecified open wound, left foot, initial encounter (9) Renal insufficiency Current visit: Yes Status: Acute Category: Medical Code(s): N28.9 - Disorder of kidney and ureter, unspecified (10) Positive blood culture Current visit: Yes Status: Acute Category: Medical Code(s): R78.81 - Bacteremia The patient's infection will respond to the chosen ABx?: Yes Is the patient receiving the right drug, dose, and route?: Yes Could a more targeted ABx be ordered?: No (STAPH AUREUS IN BLOOD)
[2019-01-11 06:43] LABS: Basophils # 0.1 K/mm3 (0-0.2); Basophils % 0.5 % (0.1-2.0); Eosinophils # 0.3 K/mm3 (0.0-0.4); Eosinophils % 3.1 % (0.1-12.0); Hematocrit 35.9 % (37.0-47.0); Hemoglobin 11.1 g/dL (12.2-16.2); Lymphocytes # 1.6 K/mm3 (0.7-4.5); Lymphocytes % 17.3 % (10-50); Mean Corpuscular Volume 84.9 fl (81-99); Mean Platelet Volume 9.1 fl (7.4-10.4); Monocytes # 0.5 K/mm3 (0.1-1.0); Monocytes % 4.8 % (1.7-9.3); Neutrophils # 7.1 K/mm3 (1.8-7.8); Neutrophils % 74.3 % (37.0-80.0); Platelet Count 241 K/mm3 (142-424); Red Blood Count 4.23 M/mm3 (4.20-5.40); Red Cell Distribution Width 14.1 % (11.5-17.5); White Blood Count 9.5 K/mm3 (4.8-10.8)
[2019-01-11 06:53] LABS: Anion Gap 12.9 mEq/L (5-15); Calcium 9.2 mg/dL (8.5-10.1)
--- NOTE | 2019-01-11 08:15 | Progress Note ---
<Kimberly Alvarez - Last Filed: 01/11/19 08:13> Internal Medicine - PN: Subj *Date: 01/11/19 *Time: 08:13 Interval history: Patient states she is doing well this morning. She has no new complaints. She denies any pain, slept off and on, and ate all of her breakfast. Exam Vital signs and Labs for Last 24 Hours: Temp Pulse Resp BP Pulse Ox 98.9 F 83 17 160/79 H 93 L 01/11/19 04:00 01/11/19 04:00 01/11/19 04:00 01/11/19 04:00 01/11/19 04:00 Laboratory Results - last 24 hr 01/10/19 08:21: POC Glucose 131 H 01/10/19 11:06: POC Glucose 168 H 01/10/19 16:15: POC Glucose 152 H 01/10/19 20:37: POC Glucose 152 H 01/11/19 05:51: POC Glucose 79 01/11/19 06:20: WBC 9.5 D, RBC 4.23, Hgb 11.1 L, Hct 35.9 L, MCV 84.9, MCH 26.3 L, MCHC 31.0 L, RDW 14.1, Plt Count 241, MPV 9.1, Neut % (Auto) 74.3, Lymph % (Auto) 17.3, [place] % (Auto) 4.8, Eos % (Auto) 3.1, Baso % (Auto) 0.5, Neut # (Auto) 7.1, Lymph # (Auto) 1.6, [place] # (Auto) 0.5, Eos # (Auto) 0.3, Baso # (Auto) 0.1 01/11/19 06:20: Sodium 140, Potassium 3.9, Chloride 105, Carbon Dioxide 26, Anion Gap 12.9, BUN 10 D, Creatinine 0.70 D, Estimated Creat Clear 81, Estimated GFR 86, Est GFR ( Amer) 104 D, Glucose 85, Calcium 9.2 I & O for Last 24 hours: Intake & Output 01/08/19 01/09/19 01/10/19 01/11/19 11:59 11:59 11:59 11:59 Intake Total 2565 / 2565 3982 / 3982 4504 / 4504 4377 / 4377 Output Total 200 / 200 Balance 2565 / 2565 3982 / 3982 4304 / 4304 4377 / 4377 Weight 255 lb 5 oz 256 lb 8 oz 260 lb 262 lb 7 oz Microbiology Reports for the Last 24 Hours: Microbiology 01/09/19 11:30 Foot,Left - Drainage Gram Stain - Final 01/09/19 11:30 Foot,Left - Drainage Wound Culture - Preliminary 01/09/19 11:00 Foot,Left Gram Stain - Final 01/09/19 11:00 Foot,Left Wound Culture - Preliminary 01/07/19 13:10 Blood Blood Culture - Preliminary Staphylococcus aureus - Constitutional no acute distress - *Routine Respiratory Exam Present: CTA bilaterally - *Routine Cardiovascular Exam Present: RRR - *Routine Abdominal Exam Present: soft, normoactive bowel sounds. Absent: tenderness - *Routine Extremities Exam Present: edema (bilateral LE's). Absent: cyanosis, clubbing - *Routine Skin Exam Present: warm. Absent: rash Comments: left foot with dressing in place Assessment and Plan (1) Cellulitis of leg, left Current visit: No Status: Acute Category: Medical Code(s): L03.116 - Cellulitis of left lower limb (2) Vomiting Current visit: No Status: Acute Qualifiers: Vomiting type: unspecified Vomiting Intractability: unspecified Nausea presence: with nausea Qualified Code(s): R11.2 - Nausea with vomiting, unspecified Category: Medical Code(s): R11.10 - Vomiting, unspecified (3) Hyponatremia Current visit: Yes Status: Acute Category: Medical Code(s): E87.1 - Hypo- osmolality and hyponatremia (4) Type 2 diabetes mellitus Current visit: Yes Status: Chronic Category: Medical Code(s): E11.9 - Type 2 diabetes mellitus without complications (5) Diabetes type 2, uncontrolled Current visit: No Status: Chronic Category: Medical Code(s): E11.65 - Type 2 diabetes mellitus with hyperglycemia (6) Hyperlipidemia Current visit: No Status: Chronic Category: Medical Code(s): E78.5 - Hyperlipidemia, unspecified (7) Hypertension Current visit: No Status: Chronic Category: Medical Code(s): I10 - Essential (primary) hypertension (8) Wound of left foot Current visit: No Status: Chronic Category: Medical Code(s): S91.302A - Unspecified open wound, left foot, initial encounter (9) Renal insufficiency Current visit: Yes Status: Acute Category: Medical Code(s): N28.9 - Disorder of kidney and ureter, unspecified (10) Positive blood culture Current visit: Yes Status: Acute Category: Medical Code(s): R78.81 - Bacteremia (11) Bacteremia due to Staphylococcus aureus Current visit: Yes Status: Acute Category: Medical Code(s): R78.81 - Bacteremia - Assessment and plan all Dx Assessment and Plan for all problems:: Blood cultures are positive for staph aureus and sensitivities are available. Patient is anxious to go home. Will discuss further care with Dr. Jones. <Ricky Jones - Last Filed: 01/11/19 08:37> Internal Medicine - PN: Subj *Date: 01/11/19 *Time: 08:36 Exam Vital signs and Labs for Last 24 Hours: Temp Pulse Resp BP Pulse Ox 97.8 F 87 18 182/93 H 98 01/11/19 08:00 01/11/19 08:00 01/11/19 08:00 01/11/19 08:00 01/11/19 08:00 Laboratory Results - last 24 hr 01/10/19 08:21: POC Glucose 131 H 01/10/19 11:06: POC Glucose 168 H 01/10/19 16:15: POC Glucose 152 H 01/10/19 20:37: POC Glucose 152 H 01/11/19 05:51: POC Glucose 79 01/11/19 06:20: WBC 9.5 D, RBC 4.23, Hgb 11.1 L, Hct 35.9 L, MCV 84.9, MCH 26.3 L, MCHC 31.0 L, RDW 14.1, Plt Count 241, MPV 9.1, Neut % (Auto) 74.3, Lymph % (Auto) 17.3, [place] % (Auto) 4.8, Eos % (Auto) 3.1, Baso % (Auto) 0.5, Neut # (Auto) 7.1, Lymph # (Auto) 1.6, [place] # (Auto) 0.5, Eos # (Auto) 0.3, Baso # (Auto) 0.1 01/11/19 06:20: Sodium 140, Potassium 3.9, Chloride 105, Carbon Dioxide 26, Anion Gap 12.9, BUN 10 D, Creatinine 0.70 D, Estimated Creat Clear 81, Estimated GFR 86, Est GFR ( Amer) 104 D, Glucose 85, Calcium 9.2 I & O for Last 24 hours: Intake & Output 01/08/19 01/09/19 01/10/19 01/11/19 23:59 23:59 23:59 23:59 Intake Total 2064 6209 / 6209 4407 / 4407 2246 Output Total 200 / 200 Balance 2064 6209 / 6209 4207 / 4207 2246 Weight 255 lb 5 oz 256 lb 7.984 oz 260 lb 262 lb 7 oz Microbiology Reports for the Last 24 Hours: Microbiology 01/09/19 11:30 Foot,Left - Drainage Gram Stain - Final 01/09/19 11:30 Foot,Left - Drainage Wound Culture - Preliminary 01/09/19 11:00 Foot,Left Gram Stain - Final 01/09/19 11:00 Foot,Left Wound Culture - Preliminary 01/07/19 13:10 Blood Blood Culture - Preliminary Staphylococcus aureus Assessment and Plan (1) Cellulitis of leg, left Current visit: No Status: Acute Category: Medical Code(s): L03.116 - Cellulitis of left lower limb (2) Vomiting Current visit: No Status: Acute Qualifiers: Vomiting type: unspecified Vomiting Intractability: unspecified Nausea presence: with nausea Qualified Code(s): R11.2 - Nausea with vomiting, unspecified Category: Medical Code(s): R11.10 - Vomiting, unspecified (3) Hyponatremia Current visit: Yes Status: Acute Category: Medical Code(s): E87.1 - Hypo- osmolality and hyponatremia (4) Type 2 diabetes mellitus Current visit: Yes Status: Chronic Category: Medical Code(s): E11.9 - Type 2 diabetes mellitus without complications (5) Diabetes type 2, uncontrolled Current visit: No Status: Chronic Category: Medical Code(s): E11.65 - Type 2 diabetes mellitus with hyperglycemia (6) Hyperlipidemia Current visit: No Status: Chronic Category: Medical Code(s): E78.5 - Hyperlipidemia, unspecified (7) Hypertension Current visit: No Status: Chronic Category: Medical Code(s): I10 - Essential (primary) hypertension (8) Wound of left foot Current visit: No Status: Chronic Category: Medical Code(s): S91.302A - Unspecified open wound, left foot, initial encounter (9) Renal insufficiency Current visit: Yes Status: Acute Category: Medical Code(s): N28.9 - Disorder of kidney and ureter, unspecified (10) Positive blood culture Current visit: Yes Status: Acute Category: Medical Code(s): R78.81 - Bact eremia (11) Bacteremia due to Staphylococcus aureus Current visit: Yes Status: Acute Category: Medical Code(s): R78.81 - Bacteremia - Assessment and plan all Dx Assessment and Plan for all problems:: Saw patient, will request PICC line placement today, plan outpatient daily Rocephin x 10 days and daily wound care here at [facility].
--- NOTE | 2019-01-14 14:07 | Discharge Summary ---
General - General Admission date:: 01/07/19 Discharge date: 01/11/19 HPI HPI: Ms Painter is a 58-year-old female with a history of type 2 diabetes mellitus, hyperlipidemia, hypertension, venous stasis ulcer of the left leg, depression, breast cancer, who saw her surface mount technology operator today in [facility] for routine assessment of a left leg wound. This wound had almost healed but the left lower leg is edematous and erythematous. The patient has been experiencing nausea and vomiting for the last 2 to 3 days and has been unable to keep down any fluids, thus he gave her the option of being admitted to the hospital in [place] or to return to [place] for admission at [facility] for IV antibiotics. She and her decided for her to return to [place]. She was seen in the emergency room and found to have an elevated white blood cell count and was thus admitted for further evaluation and treatment. Foot x- ray shows no obvious osteomyelitis. Hospital Course Hospital Course: The patient's left foot x-ray showed cellulitis with a small soft tissue ulcer medially but no osteomyelitis. The patient was admitted and started on piperacillin and vancomycin as well as IV fluids. The patient's nausea and vomiting resolved and she was able to begin eating. Physical therapy was consulted for wound care. Dr. Smith was consulted as well. She performed a bedside incision and drainage of the wound and a wound culture was taken. She applied packing and a dressing. These were to be changed daily. She was to remain nonweightbearing in a postop shoe with DME assistance. The patient's blood cultures returned positive for staph aureus. Her wound cultures returned positive for staph aureus and strep pyogenes. A PICC line was placed and she was stable to be discharged home. She will need outpatient daily Rocephin for 10 days and daily wound care at [facility]. Objective Vital signs: Temp Pulse Resp BP Pulse Ox 98.9 F 83 20 173/89 H 97 01/11/19 15:40 01/11/19 15:40 01/11/19 15:40 01/11/19 15:40 01/11/19 15:40 Narrative: - Constitutional no acute distress, obese - *Routine HEENT Exam Head: Present: normocephalic, atraumatic Eye: Present: PERRL. Absent: conjunctival icterus, scleral injection ENT: Present: mucous membranes moist, oropharynx clear - *Routine Neck Exam Present: supple. Absent: carotid bruit, lymphadenopathy, thyromegaly - *Routine Respiratory Exam Present: CTA bilaterally (Anteriorly and posteriorly) - *Routine Cardiovascular Exam Present: RRR - *Routine Abdominal Exam Present: soft, normoactive bowel sounds. Absent: tenderness - *Routine Extremities Exam Present: edema (Short pretty good she still numbness on the stretcher she has cellulitis she said that they change the dressing today is healed and she is to take the dressing off if you just go and she has no new wounds so this time blood sugars in the) Comments: Left lower leg with erythema, edema, tightness, and it is hot to touch. Leg is not tender. Skin is intact. She has a dressing over the distal foot which was changed by the surface mount technology operator in [place]. She states she has no open areas. - *Routine Neurological Exam Present: alert, oriented X3 Results Labs on day of discharge: Preliminary micro results at discharge 01/09/19 11:00 Wound Culture - Preliminary Foot,Left Gram Positive Cocci 01/09/19 11:30 Wound Culture - Preliminary Foot,Left - Drainage Staphylococcus aureus Strep pyogenes (grp a) DS: Diagnosis - Discharge Diagnosis (1) Cellulitis of leg, left Status: Acute (2) Vomiting Status: Acute (3) Hyponatremia Status: Acute (4) Type 2 diabetes mellitus Status: Chronic (5) Diabetes type 2, uncontrolled Status: Chronic (6) Hyperlipidemia Status: Chronic (7) Hypertension Status: Chronic (8) Wound of left foot Status: Chronic (9) Renal insufficiency Status: Acute (10) Positive blood culture Status: Acute (11) Bacteremia due to Staphylococcus aureus Status: Acute Discharge Plan - Patient Discharge Instructions ACTIVITY: Continue current activity DIET: continue same diet Additional Instructions: Wound care to left foot wound daily, PICC line care at [facility]. Patient Instructions: DI for Cellulitis -- Adult, DI for Diabetes Type 2 - Follow up Plan Follow up with: Ricky oJnes MD [Primary Care Provider] - 01/17/19 Jen Smith DPM [Staff Physician] - 2 weeks Disposition: Home, Self-Assisted Medications: Home Medications Medication Instructions Recorded Confirmed Type Ascorbic Acid [Vitamin C] 1,000 mg PO DAILY 07/05/17 01/07/19 History Atorvastatin Calcium [Atorvastatin 20 mg PO HS 07/05/17 01/08/19 History 20mg Tab] Fluoxetine HCl [Sarafem] 20 mg PO DAILY 07/05/17 01/07/19 History Gabapentin [Gabapentin 300mg Cap] 300 mg PO TID 07/05/17 01/07/19 History Insulin Aspart [Novolog Flexpen] 0 unit SQ DIRECTED 07/05/17 01/08/19 History Insulin Glargine,Hum.rec.anlog 100 unit SQ BID 07/05/17 01/07/19 History [Lantus Insulin 100units/mL 10mL vial] Lisinopril [Lisinopril 20mg Tab] 20 mg PO DAILY 07/05/17 01/07/19 History Meloxicam [Mobic 7.5mg Tab] 7.5 mg PO DAILY 07/05/17 01/07/19 History Metformin HCl [Glucophage 500mg 1,000 mg PO BID 07/05/17 01/07/19 History Tablet] Metoprolol Succinate [Toprol XL 50 mg PO DAILY 07/05/17 01/07/19 History 50mg Tablet] Multivitamin [Multivitamins] 1 each PO DAILY 07/05/17 01/07/19 History Vitamin B Complex 1 each PO DAILY 07/05/17 01/07/19 History ARIPiprazole [Abilify 2mg Tablet] 2 mg PO DAILY 10/09/18 01/07/19 History Aspirin [Aspirin 325mg Tab] 325 mg PO DAILY 10/09/18 01/07/19 History Biotin 5 mg PO TID 10/09/18 01/07/19 History Calcium Carbonate/Vitamin D3 1 each PO BID 10/09/18 01/07/19 History [Calcium 600-Vit D3 800 Tablet] Cholecalciferol (Vitamin D3) 2,000 unit PO DAILY 10/09/18 01/07/19 History [Vitamin D3 1,000 Unit Cap] Cinnamon Bark/Chromium Picolin 2 cap PO BID 10/09/18 01/07/19 History [Cinnamon Plus Chromium Capsule] Duloxetine HCl 60 mg PO DAILY 10/09/18 01/07/19 History Fenofibric Acid (Choline) 135 mg PO DAILY 10/09/18 01/07/19 History [Fenofibric Acid] Gluc Gallegos/Chondro Gallgeos A/Vit C/Mn 3 each PO DAILY 10/09/18 01/08/19 History [Glucosamine Chondroitin Tab] Krill Oil/[place]-3/Dha/Epa [[place]-3 1 each PO DAILY 10/09/18 01/07/19 History Krill Oil Softgel] Lramin,Paracasei, B.lactis 1 each PO DAILY 10/09/18 01/07/19 History [Probiotic] Sitagliptin Phosphate [Januvia 100 mg PO DAILY 10/09/18 01/07/19 History 100mg tablet] Ubidecarenone [Coq-10] 100 mg PO DAILY 10/09/18 01/07/19 History Anastrozole [Arimidex] 1 mg PO DAILY 10/10/18 01/07/19 History Miscellaneous [Miscellaneous 1 applicatio TP DAILY 01/08/19 01/08/19 History topical] Ceftriaxone Sodium [Rocephin 1gm 1 gm IV DAILY 10 Days vial 01/11/19 Rx vial] Prescriptions/Medication Reconciliation: New Ceftriaxone Sodium [Rocephin 1gm vial] 1 gm IV DAILY 10 Days vial Continued Lisinopril [Lisinopril 20mg Tab] 20 mg PO DAILY Insulin Glargine,Hum.rec.anlog [Lantus Insulin 100units/mL 10mL vial] 100 unit SQ BID Vitamin B Complex 1 each PO DAILY Multivitamin [Multivitamins] 1 each PO DAILY Fluoxetine HCl [Sarafem] 20 mg PO DAILY Atorvastatin Calcium [Atorvastatin 20mg Tab] 20 mg PO HS Ascorbic Acid [Vitamin C] 1,000 mg PO DAILY Sitagliptin Phosphate [Januvia 100mg tablet] 100 mg PO DAILY Biotin 5 mg PO TID Calcium Carbonate/Vitamin D3 [Calcium 600-Vit D3 800 Tablet] 1 each PO BID Cholecalciferol (Vitamin D3) [Vitamin D3 1,000 Unit Cap] 2,000 unit PO DAILY Cinnamon Bark/Chromium Picolin [Cinnamon Plus Chromium Capsule] 2 cap PO BID Duloxetine HCl 60 mg PO DAILY Fenofibric Acid (Choline) [Fenofibric Acid] 135 mg PO DAILY Gluc Gallegos/Chondro Gallegos A/Vit C/Mn [Glucosamine Chondroitin Tab] 3 each PO DAILY L.acidharvey,Paracasei, B.lactis [Probiotic] 1 each PO DAILY Ubidecarenone [Coq-10] 100 mg PO DAILY Anastrozole [Arimidex] 1 mg PO DAILY Metoprolol Succinate [Toprol XL 50mg Tablet] 50 mg PO DAILY Insulin Aspart [Novolog Flexpen] 0 unit SQ DIRECTED Gabapentin [Gabapentin 300mg Cap] 300 mg PO TID Metformin HCl [Glucophage 500mg Tablet] 1,000 mg PO BID Meloxicam [Mobic 7.5mg Tab] 7.5 mg PO DAILY Aspirin [Aspirin 325mg Tab] 325 mg PO DAILY ARIPiprazole [Abilify 2mg Tablet] 2 mg PO DAILY Krill Oil/[place]-3/Dha/Epa [[place]-3 Krill Oil Softgel] 1 each PO DAILY Miscellaneous [Miscellaneous topical] 1 applicatio TP DAILY
== END 2019-01-11 17:39 | disposition home or self-care (01) | DRG 580 ==
LOC: ER 12:38 → 2ND 12:38 → OBSVTOIN 17:24 → 2ND 17:25
PROVIDERS: ADMIT Family Medicine; ATTEND Family Medicine
CPT/HCPCS: 36415; 36569; 71010; 71045; 73630; 80048; 80053; 80202; 82009; 82803; 82962; 83605; 84550; 85025; 87040; 87070; 87077; 87186; 87205; 96365; 99284; C1751; J2543; J3370

== ENCOUNTER → 2019-01-12 09:24 | Outpatient (CLI) | payer MEDICARE, OTHER, SELFPAY ==
[2019-01-12 09:24] VITALS: BP 163/81; PULSE 83; RESP 18; TEMP 36.4; O2SAT 94
[2019-01-12 09:48] VITALS: BP 143/73; PULSE 85; RESP 16; TEMP 36.9; O2SAT 97; BMI 41.9
--- NOTE | 2019-01-12 09:50 | XR_ITS ---
XR chest portable HISTORY: ITS.REASON: CONFIRM PICC PLACEMENT ORDERING PHYSICIAN: Ricky Jones MD PATIENT AGE: 58 years Technique: AP portable upright chest COMPARISON: 01/11/2019 AP portable upright chest & 10/16/2018 PA and lateral chest FINDINGS: PICC line enters from the right arm transversing the right subclavian vein with tip at the SVC near junction right atria. . The today's less optimal inspiration slightly crowds accentuates markings but nothing definitely acute. (Today's Less than optimal inspiration on this CXR with diaphragm only down to the anterior fifth rib. Previous chest films with diaphragm to the anterior sixth rib) Also note today CXR slightly rotated the left. Heart is upper normal in size & pulmonary vascularity are within normal limits. The left optimal inspiration slightly eccentric markings but no discrete focal infiltrate. No pleural effusion. No pneumothorax. . Chest wall unremarkable. No acute bony abnormalities. IMPRESSION: PICC line satisfactory position. Slightly less than optimal inspiration on today's pCXR; but nothing definitely acute..
--- NOTE | 2019-01-12 09:54 | PC.NURSE ---
WHEN PT ARRIVED TO THE FLOOR HER PICC WAS EXPOSED AND LOOKED LIKE IT HAD BEEN PULLED AT LEAST 2 CM OUT. PT STATED THE TEGADERM WAS COMING LOOSE WHEN SHE WENT HOME YESTERDAY SO SHE TOOK [employer] TO REINFORCE THE DRESSING. NOTIFIED GILBERT FROM [facility] AND SHE STATED TO SECURE IT WHERE IT IS AND TO GET A X-RAY TO CONFIRM PLACEMENT. PHYSICIAN ADJUNCT FACULTY WAS NOTIFIED THROUGH OFFICE STAFF. PT WAS EDUCATED ABOUT HOW IMPORTANT IT WAS FOR THE DRESSING TO STAY ON AND EVERY TIME THE DRESSING IS CHANGED OR REMOVED STERILE TECHNIQUE IS ALWAYS REQUIRED.
--- NOTE | 2019-01-12 11:26 | PC.NURSE ---
CALLED AND TALKED TO ABOUT THE PICC BEING IN GOOD PLACEMENT BUT ALSO TALKED TO HIM ABOUT HOW THE SITE WAS TOTALLY EXPOSED SOON PT ARRIVED TO THE FLOOR AND HE STATED LONG THE SITE LOOKED OKAY TO LEAVE THE PICC IN PLACE CONSIDERING WE WILL BE SEEING PT EVERYDAY TO MONITOR THE SITE.
--- NOTE | 2019-01-12 12:25 | PC.NURSE ---
pt educated on s/s of infection and to come to er or pcp in s/s of infection occur, pain, soa, ect.
== END ==
PROVIDERS: PCP Family Medicine; Visit Provider Family Medicine
DX: L03.116 Cellulitis of left lower limb (principal); S91.302A Unspecified open wound, left foot, initial encounter
CPT/HCPCS: 71045; 96365; G0463

== ENCOUNTER → 2019-01-13 09:18 | Outpatient (CLI) | payer MEDICARE, OTHER, SELFPAY ==
[2019-01-13 09:18] VITALS: BP 146/74; PULSE 82; RESP 16; TEMP 36.7; O2SAT 96
[2019-01-13 09:49] VITALS: BP 157/86; PULSE 89; RESP 16; TEMP 36.9; O2SAT 94
== END ==
PROVIDERS: PCP Family Medicine; Visit Provider Family Medicine
DX: L03.116 Cellulitis of left lower limb (principal); S91.302A Unspecified open wound, left foot, initial encounter
CPT/HCPCS: 96365; G0463

== ENCOUNTER 2019-01-14 09:25 | Outpatient (CLI) | payer MEDICARE, OTHER, SELFPAY ==
[2019-01-14 09:52] VITALS: BP 147/66; PULSE 85; RESP 18; O2SAT 96
[2019-01-14 10:37] VITALS: BP 139/68; PULSE 81; RESP 18; O2SAT 95
[2019-01-14 12:15] VITALS: BP 117/65; PULSE 70; RESP 20; O2SAT 94
== END 2019-01-14 10:37 | disposition home or self-care (01) ==
LOC: INF 09:25
PROVIDERS: Visit Provider Family Medicine
DX: L03.116 Cellulitis of left lower limb (principal)
CPT/HCPCS: 96365; G0463

== ENCOUNTER 2019-01-15 09:20 | Outpatient (CLI) | payer MEDICARE, OTHER, SELFPAY ==
[2019-01-15 09:38] VITALS: BP 139/75; PULSE 81; RESP 18; TEMP 36.7
[2019-01-15 10:30] VITALS: BP 133/67; PULSE 67; RESP 18; O2SAT 99
== END 2019-01-15 11:05 | disposition home or self-care (01) ==
LOC: INF 09:28
PROVIDERS: Visit Provider Family Medicine
DX: L03.116 Cellulitis of left lower limb (principal)
CPT/HCPCS: 96365; G0463

== ENCOUNTER 2019-01-16 09:33 | Outpatient (CLI) | payer MEDICARE, OTHER, SELFPAY ==
[2019-01-16 09:46] VITALS: BMI 41.9
[2019-01-16 10:19] VITALS: BP 157/75; PULSE 88; RESP 24; TEMP 36.7; O2SAT 99
[2019-01-16 10:37] VITALS: BP 126/71; PULSE 81; RESP 18; O2SAT 96
== END 2019-01-16 10:37 | disposition home or self-care (01) ==
LOC: INF 09:33
PROVIDERS: Visit Provider Family Medicine
DX: L03.116 Cellulitis of left lower limb (principal)
CPT/HCPCS: 96365; G0463

== ENCOUNTER 2019-01-17 09:07 | Outpatient (CLI) | payer MEDICARE, OTHER, SELFPAY ==
[2019-01-17 09:25] VITALS: BP 139/75; PULSE 83; RESP 18; TEMP 36.7; O2SAT 98
[2019-01-17 10:20] VITALS: BP 132/79; PULSE 78; RESP 18; TEMP 36.7; O2SAT 98
== END 2019-01-17 10:25 | disposition home or self-care (01) ==
LOC: INF 09:07
PROVIDERS: Visit Provider Family Medicine
DX: L03.116 Cellulitis of left lower limb (principal)
CPT/HCPCS: 96365; G0463

== ENCOUNTER 2019-01-18 09:09 | Outpatient (CLI) | payer MEDICARE, OTHER, SELFPAY ==
--- NOTE | 2019-01-18 09:10 | PC.NURSE ---
pt reports pain in right arm and appears swollen. md was notified and given verbal order for xray for picc placement verification. will call with results and further orders.
[2019-01-18 09:11] VITALS: BP 168/92; PULSE 94; RESP 22; TEMP 36.9; O2SAT 95; BMI 41.9
--- NOTE | 2019-01-18 09:12 | XR_ITS ---
XR chest 2V HISTORY: ITS.REASON: picc placement ORDERING PHYSICIAN: Ricky Jones MD PATIENT AGE: 58 years COMPARISON: Portable upright chest 01/12/2019 FINDINGS: The lung singh are well expanded and appear clear of infiltrate. There is borderline cardio megaly however the vascularity is normal and there is no pleural fluid. Again noted is a PICC line ascending the right axillary vein and the tip at spelled pullback somewhat from the previous position now in the screw vena cava well above the right atrium. IMPRESSION: Nonacute chest findings, slight interval change in position of the tip of the PICC line
--- NOTE | 2019-01-18 10:27 | PC.NURSE ---
called md with cxr results. verbal order to pull picc line after collecting blood cultures from picc line and to culture tip once pulled. also given verbal order to doppler right upper arm to rule out blood clot.
--- NOTE | 2019-01-18 10:37 | NVE_ITS ---
Venous Exam Indications: 729.81 Swelling of limb. 729.5 Pain in limb. Patient has a PICC line in the right upper extremity mid upper arm. Excessive bandaging is present in this area, limited scanning performed. Patient states the edema has just recently started in the last few days. She states she's had right upper extremity pain since before PICC line was placed 1 week ago. Previous IV sticks in this arm with recent hospitalization. IMPRESSIONS No evidence of deep or superficial vein thrombosis involving the veins of the right upper extremity History: Redness in the right upper extermity. Swelling in the right upper extermity. Right upper extremity venous duplex. Doppler flow study including spectral analysis, color and gomes scale imaging. Location: Bedside. Patient status: Outpatient. Tables: Venous flow and imaging: + + + Location Flow properties + + + Right internal jugular Normal phasicity; spontaneous; compressible + + + Right subclavian Normal phasicity; spontaneous; normal augmentation; compressible + + + Right axillary Normal phasicity; spontaneous; normal augmentation; compressible + + + Right brachial Normal phasicity; spontaneous; normal augmentation; compressible + + + Right cephalic Normal phasicity; spontaneous; normal augmentation; compressible + + + Right basilic Normal phasicity; spontaneous; normal augmentation; compressible + + + Right radial Compressible + + + Right ulnar Compressible + + + (Report amended ) Electronically signed by: Shayne Interiano [id number]
[2019-01-18 12:50] VITALS: BP 176/90; PULSE 94; RESP 22; TEMP 36.9; O2SAT 98
== END 2019-01-18 12:50 | disposition home or self-care (01) ==
LOC: INF 09:09
PROVIDERS: Visit Provider Family Medicine
DX: L03.116 Cellulitis of left lower limb (principal); I82.621 Acute embolism and thrombosis of deep veins of right upper extremity
CPT/HCPCS: 71046; 87040; 87077; 87186; 93971; 96365; G0463

== ENCOUNTER 2019-01-19 09:16 | Outpatient (CLI) | payer MEDICARE, OTHER, SELFPAY ==
[2019-01-19 09:45] VITALS: BMI 41.9
[2019-01-19 09:46] VITALS: BP 179/83; PULSE 89; RESP 17; TEMP 36.6; O2SAT 96
== END 2019-01-19 10:25 | disposition home or self-care (01) ==
LOC: INF 09:17
PROVIDERS: PCP Family Medicine; Visit Provider Family Medicine
DX: L03.116 Cellulitis of left lower limb (principal)
CPT/HCPCS: 96365; G0463

== ENCOUNTER → 2019-01-20 09:12 | Outpatient (CLI) | payer MEDICARE, OTHER, SELFPAY ==
[2019-01-20 09:36] VITALS: BP 166/84; PULSE 80; RESP 18; TEMP 37.1; O2SAT 98
== END ==
PROVIDERS: PCP Family Medicine; Visit Provider Family Medicine
DX: L03.116 Cellulitis of left lower limb (principal)
CPT/HCPCS: 96365; G0463

== ENCOUNTER 2019-01-21 09:13 | Outpatient (CLI) | payer MEDICARE, OTHER, SELFPAY ==
[2019-01-21 09:58] VITALS: BP 167/75; PULSE 80; RESP 18; TEMP 36.6; O2SAT 97
[2019-01-21 11:15] VITALS: BP 165/82; PULSE 82; RESP 20; TEMP 36.7; O2SAT 98
[2019-01-21 11:39] LABS: POC Glucose,Bedside 68 (70-110)
[2019-01-21 11:39] LABS: POC Glucose,Bedside 66 (70-110)
[2019-01-21 11:39] LABS: POC Glucose,Bedside 71 (70-110)
--- NOTE | 2019-01-21 15:00 | PC.NURSE ---
01/21/19 1041 Pt reports she feels like her blood sugar has dropped. Accucheck shows fsbs of 66. Pt coherent, no diaphoresis, no nausea. Pt states she just feels like it's dropped. Pt given apple juice. 1057 FSBS 68. Pt given peanut butter and jason crackers. Pt states she is feeling better after juice. Pt only had glucerna this am for breakfast per her report. will monitor. 1110 FSBS 71 on recheck. Pt reports she is feeling much better after juice and snack. Pt is going to have lunch with upon leaving dept. Snack/drink given for pt to have with her on ride to restaurant in case blood sugar would drop. Pt asymptomatic at this time. No diaphoresis, no nausea or other problems
== END 2019-01-21 11:15 | disposition home or self-care (01) ==
LOC: INF 09:13
PROVIDERS: Visit Provider Family Medicine
DX: L03.116 Cellulitis of left lower limb (principal); E11.40 Type 2 diabetes mellitus with diabetic neuropathy, unspecified; Z79.4 Long term (current) use of insulin
CPT/HCPCS: 82962; 96365; G0463

== ENCOUNTER → 2019-01-24 11:23 | Outpatient (CLI) | payer MEDICARE, OTHER, SELFPAY ==
--- NOTE | 2019-01-23 17:19 | SW/DCPLANNER ---
Addendum entered by Deana Albert 01/24/19 09:30: Minda from [facility] has called and stated this patient has been admitted to their services. Services will begin today or tomorrow...I have relayed this message to Maulik in Dr Schuler office. Original Note: Received referral for home health services for this patient. Patient information was faxed to [facility] for wound care and lab draws. Information was not faxed till after hours. I will follow up in the AM with Yohan at [facility]. Both wound care and lab draws will need to be completed at some point tomorrow. All orders per Dr Smith....I was contacted by Maulik in Dr Schuler office.
[2019-01-24 11:43] LABS: Basophils # 0.1 K/mm3 (0-0.2); Basophils % 0.8 % (0.1-2.0); Eosinophils # 0.3 K/mm3 (0.0-0.4); Eosinophils % 4.6 % (0.1-12.0); Hematocrit 39.5 % (37.0-47.0); Hemoglobin 12.6 g/dL (12.2-16.2); Lymphocytes # 1.8 K/mm3 (0.7-4.5); Lymphocytes % 24.3 % (10-50); Mean Corpuscular HGB Conc 31.9 g/dL (31.8-35.4); Mean Corpuscular Hemoglobin 26.5 pg (27.0-31.2); Mean Corpuscular Volume 83.1 fl (81-99); Mean Platelet Volume 9.6 fl (7.4-10.4); Monocytes # 0.4 K/mm3 (0.1-1.0); Monocytes % 5.3 % (1.7-9.3); Neutrophils # 4.9 K/mm3 (1.8-7.8); Platelet Count 249 K/mm3 (142-424); Red Blood Count 4.75 M/mm3 (4.20-5.40); Red Cell Distribution Width 14.2 % (11.5-17.5); White Blood Count 7.5 K/mm3 (4.8-10.8)
[2019-01-24 12:10] LABS: Alanine Aminotransferase 25 U/L (12-78); Albumin Level 3.4 gm/dL (3.4-5.0); Albumin/Globulin Ratio 0.8 (1.1-1.8); Alkaline Phosphatase 69 U/L (46-116); Aspartate Amino Transferase 17 U/L (15-37); Bilirubin,Total 0.3 mg/dL (0.2-1.0); Blood Urea Nitrogen 14 mg/dL (7-18); Calcium 9.2 mg/dL (8.5-10.1); Carbon Dioxide 27 mmol/L (21.0-32.0); Chloride 103 mmol/L (98-107); Creatinine,Serum 0.65 mg/dL (0.55-1.02); Estimated Glomerular Filt Rate 93 ml/min (>60); GFR (African American) 113 ML/MIN (>60); Globulin 4.3 gm/dl (1.3-3.2); Glucose 134 mg/dL (74-106); Sodium 141 mmol/L (136-145); Total Protein,Serum 7.7 gm/dL (6.4-8.2)
[2019-01-24 12:16] LABS: C-Reactive Protein < 0.2 mg/L (0.0-0.9)
[2019-01-24 14:33] LABS: Erythrocyte Sedimentation Rate 28 mm/hr (0-30)
== END ==
PROVIDERS: Visit Provider Podiatrist
DX: E11.621 Type 2 diabetes mellitus with foot ulcer (principal); L97.529 Non-pressure chronic ulcer of other part of left foot with unspecified severity; Z79.4 Long term (current) use of insulin
CPT/HCPCS: 36415; 80053; 83036; 85025; 85651; 86140

== ENCOUNTER → 2019-02-26 08:42 | Outpatient (CLI) | payer MEDICARE, OTHER, SELFPAY | PROVIDERS: PCP Family Medicine; Visit Provider Family Medicine | DX: E11.3299 Type 2 diabetes mellitus with mild nonproliferative diabetic retinopathy without macular edema, unspecified eye (principal); Z79.4 Long term (current) use of insulin | CPT/HCPCS: 97802 ==

== ENCOUNTER 2019-12-08 13:09 | Emergency (ER) | payer MEDICARE, OTHER, SELFPAY ==
[2019-12-08] VITALS (7 sets, daily range): BP systolic 123–179; BP diastolic 72–82; PULSE 102–129; RESP 16–18; TEMP 36.6–36.8; O2SAT 95–98; BMI 43.5
--- NOTE | 2019-12-08 13:25 | HMH.EDGENADL ---
ED Disposition Clinical Impression: Non compliance w medication regimen, Hyperglycemia Disposition: Home, Self-Care Condition on Discharge: Good Instructions: DI for Hyperglycemia -- Adult Referrals: Ricky Jones MD [Primary Care Provider] - 3 days - Critical Care Critical Care Time: No Attestation: On 12/08/19, the high probability of a clinically significant, sudden or life threatening deterioration of the following system(s) required my full and direct attention, intervention and personal management. The time I documented below is in addition to time spent performing reported procedures but includes the following listed in this critical care notation. Medical Decision Making - Medical Records Medical records reviewed: Yes: I reviewed the patient's medical records. - Gunner Inquiry Pt receiving controlled substance: No Vital Signs: 12/08/19 13:10 12/08/19 14:21 12/08/19 14:56 Temperature 98.2 F Temperature Source Oral Pulse Rate [Right Radial] 120 H 120 H 124 H Respiratory Rate 18 Blood Pressure [Right Arm] 130/75 179/78 H 166/82 H Blood Pressure Mean [Right Arm] 93 111 110 Blood Pressure Source [Right Arm] Automatic Cuff Automatic Cuff Automatic Cuff Blood Pressure Position [Right Arm] Sitting Sitting Sitting 02 Sat by Pulse Oximetry 96 95 96 Oxygen Delivery Method Room Air Room Air 12/08/19 15:14 12/08/19 15:25 Temperature Temperature Source Pulse Rate [Right Radial] 129 H 102 H Respiratory Rate 18 Blood Pressure [Right Arm] 158/75 H 131/78 Blood Pressure Mean [Right Arm] 102 95 Blood Pressure Source [Right Arm] Automatic Cuff Automatic Cuff Blood Pressure Position [Right Arm] Sitting Sitting 02 Sat by Pulse Oximetry 96 95 Oxygen Delivery Method Room Air Room Air - Lab Data Lab Results 12/08/19 13:30: WBC 11.3 H, RBC 4.94, Hgb 14.4, Hct 42.6, MCV 86.2, MCH 29.2, MCHC 33.9, RDW 14.1, Plt Count 189, MPV 9.4, Neut % (Auto) 83.6 H, Lymph % (Auto) 11.4, Norton % (Auto) 3.9, Eos % (Auto) 0.6, Baso % (Auto) 0.4, Neut # (Auto) 9.5 H, Lymph # (Auto) 1.3, Norton # (Auto) 0.4, Eos # (Auto) 0.1, Baso # (Auto) 0.1 12/08/19 13:30: Sodium 135 L, Potassium 4.7, Chloride 95 L, Carbon Dioxide 28, Anion Gap 16.7 H, BUN 15, Creatinine 0.70, Estimated Creat Clear 80, Estimated GFR 85, Est GFR ( Amer) 103, Glucose 458 H*, Calcium 10.3 H, Total Bilirubin 0.9, AST 23, ALT 28, Alkaline Phosphatase 100, Total Protein 8.2, Albumin 4.6, Globulin 3.6 H, Albumin/Globulin Ratio 1.3, Acetone Level Small 12/08/19 14:53: POC Glucose 330 H* Result diagrams: 12/08/19 13:30 12/08/19 13:30 Orders (Tests/Meds): ED MEDICATIONS Discontinued Medications Generic Name Dose Route Start Last Admin Trade Name Freq PRN Reason Stop Dose Admin Sodium Chloride 1,000 mls @ 999 mls/hr 12/08/19 13:15 12/08/19 13:36 Sod Chlor 0.9% 1000ml Bag IV 12/08/19 14:15 999 mls/hr .Q1H1M JEFFERSON Administration Sodium Chloride 1,000 mls @ 999 mls/hr 12/08/19 14:00 12/08/19 15:04 Sod Chlor 0.9% 1000ml Bag IV 12/08/19 15:00 999 mls/hr .Q1H1M JEFFERSON Administration Insulin Human Regular 15 unit 12/08/19 13:50 12/08/19 14:05 Humulin R Insulin 100 Units/Ml 10ml Vial IVP 12/08/19 13:51 15 unit ONCE ONE Administration Insulin Human Regular 10 unit 12/08/19 14:55 12/08/19 15:03 Humulin R Insulin 100 Units/Ml 10ml Vial IVP 12/08/19 14:56 10 unit ONCE ONE Administration Metoprolol Tartrate 5 mg 12/08/19 15:13 12/08/19 15:25 Metoprolol Tartrate 5mg/5ml Vial IV 12/08/19 15:14 5 mg ONCE ONE Administration ORDERS Category Date Time Status Urinalysis and Microscopic Stat Lab 12/08/19 13:14 Ordered Medical Decision Narrative: Patient here with hyperglycemia secondary to not checking her glucose for several days and not taking her medicine today. She also has some tachycardia which could be from a small degree of dehydration, but also is because (as she later admitted) she did no
[2019-12-08 13:39] LABS: Basophils # 0.1 K/mm3 (0-0.2); Basophils % 0.4 % (0.1-2.0); Eosinophils # 0.1 K/mm3 (0.0-0.4); Eosinophils % 0.6 % (0.1-12.0); Hematocrit 42.6 % (37.0-47.0); Hemoglobin 14.4 g/dL (12.2-16.2); Lymphocytes # 1.3 K/mm3 (0.7-4.5); Lymphocytes % 11.4 % (10-50); Mean Corpuscular HGB Conc 33.9 g/dL (31.8-35.4); Mean Corpuscular Hemoglobin 29.2 pg (27.0-31.2); Mean Corpuscular Volume 86.2 fl (81-99); Mean Platelet Volume 9.4 fl (7.4-10.4); Monocytes # 0.4 K/mm3 (0.1-1.0); Monocytes % 3.9 % (1.7-9.3); Neutrophils # 9.5 K/mm3 (1.8-7.8); Neutrophils % 83.6 % (37.0-80.0); Platelet Count 189 K/mm3 (142-424); Red Blood Count 4.94 M/mm3 (4.20-5.40); Red Cell Distribution Width 14.1 % (11.5-17.5); White Blood Count 11.3 K/mm3 (4.8-10.8)
[2019-12-08 13:46] LABS: Alanine Aminotransferase 28 U/L (12-78); Albumin Level 4.6 g/dl (3.5-5.0); Albumin/Globulin Ratio 1.3 (1.1-1.8); Alkaline Phosphatase 100 U/L (38-126); Anion Gap 16.7 mEq/L (5-15); Aspartate Amino Transferase 23 U/L (14-36); Bilirubin,Total 0.9 mg/dl (0.2-1.3); Blood Urea Nitrogen 15 mg/dl (7-17); Calcium 10.3 mg/dl (8.4-10.2); Carbon Dioxide 28 mmol/L (22.0-30.0); Chloride 95 mmol/L (98-107); Creatinine Clearance Estimated 80 mL/min (50-200); Estimated Glomerular Filt Rate 85 ml/min (>60); GFR (African American) 103 ML/MIN (>60); Globulin 3.6 g/dL (1.3-3.2); Potassium 4.7 mmoL/L (3.5-5.1); Sodium 135 mmol/L (136-145); Total Protein,Serum 8.2 g/dl (6.3-8.2)
[2019-12-08 13:48] LABS: Glucose 458 mg/dl (74-100)
--- NOTE | 2019-12-08 13:48 | PC.NURSE ---
notified er of critical glucose result of 458
[2019-12-08 13:50] LABS: Acetone, Serum (Rapid) Small (None Detect)
--- NOTE | 2019-12-08 14:54 | PC.NURSE ---
fsbs 330
--- NOTE | 2019-12-08 14:55 | PC.NURSE ---
FSBS 330
[2019-12-08 14:57] LABS: POC Glucose,Bedside 330 (70-110)
--- NOTE | 2019-12-08 15:11 | PC.NURSE ---
pt attempted to provide urine specimen at this time, pt unsuccessful in providing urine specimen. Pt ambulated to and from restroom with standby staff assist.
--- NOTE | 2019-12-08 15:14 | PC.NURSE ---
ER MD gave verbal order for Metoprolol 5mg IV one time dose.
--- NOTE | 2019-12-08 15:58 | PC.NURSE ---
fsbs 312
[2019-12-08 15:59] LABS: POC Glucose,Bedside 312 (70-110)
== END 2019-12-08 16:33 | disposition home or self-care (01) ==
PROVIDERS: Emergency Provider Emergency Medicine; PCP Family Medicine
DX: E11.65 Type 2 diabetes mellitus with hyperglycemia (principal); I10 Essential (primary) hypertension; E78.5 Hyperlipidemia, unspecified; N28.9 Disorder of kidney and ureter, unspecified; F33.1 Major depressive disorder, recurrent, moderate; Z79.84 Long term (current) use of oral hypoglycemic drugs; Z79.4 Long term (current) use of insulin; Z79.899 Other long term (current) drug therapy
CPT/HCPCS: 80053; 82009; 82962; 85025; 96365; 96367; 96375; 96376; 99284

== ENCOUNTER → 2020-12-01 12:28 | Outpatient (CLI) | payer MEDICARE, OTHER, SELFPAY ==
[2020-12-01 13:15] LABS: Basophils # 0.1 K/mm3 (0-0.2); Basophils % 0.5 % (0.1-2.0); Eosinophils # 0.4 K/mm3 (0.0-0.4); Hematocrit 45.6 % (37.0-47.0); Hemoglobin 15.5 g/dL (12.2-16.2); Mean Corpuscular Volume 85.2 fl (81-99); Mean Platelet Volume 9.5 fl (7.4-10.4); Monocytes # 0.4 K/mm3 (0.1-1.0); Monocytes % 4.1 % (1.7-9.3); Neutrophils # 6.2 K/mm3 (1.8-7.8); Neutrophils % 69.4 % (37.0-80.0); Platelet Count 235 K/mm3 (142-424); Red Blood Count 5.36 M/mm3 (4.20-5.40); Red Cell Distribution Width 13.6 % (11.5-17.5); White Blood Count 8.9 K/mm3 (4.8-10.8)
[2020-12-01 14:17] LABS: Chloride 101 mmol/L (98-107); Potassium 4.8 mmoL/L (3.5-5.1); Sodium 137 mmol/L (136-145)
[2020-12-01 14:19] LABS: Alanine Aminotransferase 33 U/L (12-78); Aspartate Amino Transferase 34 U/L (14-36); Blood Urea Nitrogen 11 mg/dl (7-17); Estimated Glomerular Filt Rate 102 ml/min (>60); GFR (African American) 123 ML/MIN (>60)
[2020-12-01 14:20] LABS: Albumin Level 4.9 g/dl (3.5-5.0); Albumin/Globulin Ratio 1.4 (1.1-1.8); Alkaline Phosphatase 100 U/L (38-126); Anion Gap 16.8 mEq/L (5-15); Bilirubin,Total 0.5 mg/dl (0.2-1.3); Calcium 9.9 mg/dl (8.4-10.2); Carbon Dioxide 24 mmol/L (22.0-30.0); Globulin 3.6 g/dL (1.3-3.2); Glucose 308 mg/dl (74-100); Total Protein,Serum 8.5 g/dl (6.3-8.2)
[2020-12-01 14:40] LABS: C-Reactive Protein 7.9 mg/L (0-4)
[2020-12-01 17:14] LABS: Erythrocyte Sedimentation Rate 15 mm/hr (0-30)
== END ==
PROVIDERS: Visit Provider Podiatrist
DX: L97.922 Non-pressure chronic ulcer of unspecified part of left lower leg with fat layer exposed (principal)
CPT/HCPCS: 36415; 80053; 85025; 85651; 86140

== ENCOUNTER → 2020-12-07 11:05 | Outpatient (CLI) | payer MEDICARE, OTHER, SELFPAY | PROVIDERS: Visit Provider Podiatrist | DX: Z01.812 Encounter for preprocedural laboratory examination (principal); Z11.52 Encounter for screening for COVID-19; L97.922 Non-pressure chronic ulcer of unspecified part of left lower leg with fat layer exposed | CPT/HCPCS: U0003 ==

== ENCOUNTER 2020-12-09 10:26 | Day surgery (SDC) | payer MEDICARE, OTHER, SELFPAY ==
[2020-12-08 09:43] VITALS: BMI 42.3
[2020-12-09 10:48] VITALS: BP 128/78; PULSE 90; RESP 20; TEMP 37; O2SAT 95
[2020-12-09 11:06] LABS: POC Glucose,Bedside 287 (70-110)
[2020-12-09 12:06] VITALS: BP 168/75; PULSE 85; RESP 18; RESP 20; TEMP 36.6; TEMP 37.1; O2SAT 95
--- NOTE | 2020-12-09 12:12 | HMH.OPNOTE ---
Date of procedure: 12/09/20 Pre-op Diagnosis:: 1. Left ankle/luevano ulcer 2. Left leg venous ulcer 3. Left DM ulcer Post-op Diagnosis:: Same Procedure performed:: 1. Left ankle/luevano wound debridement x2 2. Application of Apligraft Surgeon:: Jen Smith DPM [employer] SUPERVISOR:: Other Anesthesia: local (10cc 0.5% marcaine plain) Estimated blood loss (mL): 5 Clinical Note:: LEFT Medial Luevano/Distal Leg DM Ulcer: In office glucose finger stick, 11/03/20: 308 Labs, 12/01/20: wbc 8.9, esr 15, crp 7.9, gfr 105, glucose 308 We discussed conservative versus surgical treatment options. Conservative treatment options include local wound care, oral and IV antibiotics, and off-loading. We discussed surgical intervention for wound debridement, closure and application of graft. Patient also understands that they could have wound healing complications including delayed healing and infection. We discussed that if the wound does not heal, it is possible that they may need a more proximal amputation and could result in further loss of digits, loss of partial foot or loss of leg. We discussed the risks and benefits in great detail. Other surgical risks include: prolonged pain and swelling, further infection requiring oral or IV antibiotics, delay in healing of soft tissue or bone, nerve or blood vessel damage, CRPS/RSD, DVT, anesthesia complications, and even . All questions answered. Patient verbalized understanding. Consent obtained. Operative findings:: The left anterior medial luevano/distal leg has a venous ulcer noted. There is a larger DM ulcer noted to the anterior lateral ankle. The wounds were debrided. Utilizing a 15' blade and curette, the wounds were sharply excisionally debrided through skin into/involving sub q layer. No acute signs of infection noted at this time. Biofilm and fibrotic slough were debrided. No evidence of purulence or malodor. No ascending cellulitis. No drainage. Post-debridement: anterior medial ulcer: 100% granular and measures 0.5x0.5x0.1cm. The anterior lateral ulcer: 100% granular, bleeding edges and measures 3.1x1.9x0.2cm. Operative note:: On this date and time the patient was deemed an appropriate surgical candidate and with the informed consent signed the patient was wheeled from the preoperative holding area to the local procedure room. 10cc 0.5% marcaine plain local anesthesia was used for this case. Left ankle/luevano wound debridement x2: The left extremity was prepped and draped in normal sterile fashion. Attention was directed to the distal ankle and leg where previous surgery and healed burn/graft skin was noted. There were two separate ulcers. Pre debridement: both the anteior medial and lateral ulcer wound bases were 50% fibrotic slough and 50% granular. Utilizing a 15 blade and curette the wound was debrided sharply excisionally through skin into/involving the subcu layer. Fibrotic tissue and biofilm was removed. No signs of deep infection. Good bleeding was noted. 100% granular base was noted. Post debridement: anterior medial ulcer: 100% granular and measures 0.5x0.5x0.1cm. The anterior lateral ulcer: 100% granular, bleeding edges and measures 3.1x1.9x0.2cm. The wounds did not extend into deep fascia or into bone. No purulence or signs of infection. Betadine irrigation was then used to flush the wound site. It was re-explored and no signs of deep infection noted. Wound Graft Application-Apligraft (Organogenesis): Using a sterile technique, the graft was prepared and fenestrated. The graft was cut to size and applied over the wound and steri-strips were used to hold the graft in place. Adaptic applied and secured with steri strips. A dry sterile dressing was then applied to foot. Patient tolerated the local anesthesia and procedure well, with no pain. Plan: Maintain the dressing clean dry and intact to the left foot until the next appt. Elevate on one pillow. Ok to FWB. Follow up in one week. Tourniquet time (min): 0 Condition: stable Dispositio
== END 2020-12-09 12:15 | disposition home or self-care (01) ==
LOC: OUTP 10:28
PROVIDERS: PCP Family Medicine; Visit Provider Podiatrist
DX: E11.622 Type 2 diabetes mellitus with other skin ulcer (principal); Z79.4 Long term (current) use of insulin; I10 Essential (primary) hypertension; E78.5 Hyperlipidemia, unspecified; I83.022 Varicose veins of left lower extremity with ulcer of calf; E66.01 Morbid (severe) obesity due to excess calories; Z68.41 Body mass index [BMI] 40.0-44.9, adult; L97.922 Non-pressure chronic ulcer of unspecified part of left lower leg with fat layer exposed
CPT/HCPCS: 11042; 15275; 82962; Q4101

== ENCOUNTER → 2020-12-23 15:53 | Outpatient (CLI) | payer MEDICARE, OTHER, SELFPAY ==
[2020-12-23 16:20] LABS: Basophils # 0.1 K/mm3 (0-0.2); Eosinophils # 0.3 K/mm3 (0.0-0.4); Eosinophils % 3.3 % (0.1-12.0); Hemoglobin 14.8 g/dL (12.2-16.2); Lymphocytes # 2.3 K/mm3 (0.7-4.5); Lymphocytes % 25.5 % (10-50); Mean Corpuscular HGB Conc 34.5 g/dL (31.8-35.4); Mean Corpuscular Hemoglobin 29.1 pg (27.0-31.2); Mean Corpuscular Volume 84.5 fl (81-99); Mean Platelet Volume 9.3 fl (7.4-10.4); Monocytes # 0.3 K/mm3 (0.1-1.0); Monocytes % 3.8 % (1.7-9.3); Neutrophils # 5.9 K/mm3 (1.8-7.8); Neutrophils % 66.4 % (37.0-80.0); Platelet Count 200 K/mm3 (142-424); Red Blood Count 5.09 M/mm3 (4.20-5.40); Red Cell Distribution Width 13.8 % (11.5-17.5); White Blood Count 8.9 K/mm3 (4.8-10.8)
[2020-12-23 16:33] LABS: Chloride 103 mmol/L (98-107); Sodium 140 mmol/L (136-145)
[2020-12-23 16:34] LABS: Potassium 4.7 mmoL/L (3.5-5.1)
[2020-12-23 16:36] LABS: Alanine Aminotransferase 28 U/L (12-78); Albumin Level 4.6 g/dl (3.5-5.0); Albumin/Globulin Ratio 1.4 (1.1-1.8); Alkaline Phosphatase 94 U/L (38-126); Anion Gap 14.7 mEq/L (5-15); Aspartate Amino Transferase 37 U/L (14-36); Bilirubin,Total 0.5 mg/dl (0.2-1.3); Blood Urea Nitrogen 15 mg/dl (7-17); Calcium 9.8 mg/dl (8.4-10.2); Carbon Dioxide 27 mmol/L (22.0-30.0); Estimated Glomerular Filt Rate 85 ml/min (>60); GFR (African American) 103 ML/MIN (>60); Globulin 3.4 g/dL (1.3-3.2); Glucose 316 mg/dl (74-100)
[2020-12-23 16:45] LABS: Erythrocyte Sedimentation Rate 14 mm/hr (0-30)
[2020-12-23 18:08] LABS: C-Reactive Protein 4.1 mg/L (0-4)
== END ==
PROVIDERS: Visit Provider Nurse Practitioner
DX: E11.622 Type 2 diabetes mellitus with other skin ulcer (principal); L97.929 Non-pressure chronic ulcer of unspecified part of left lower leg with unspecified severity; Z98.890 Other specified postprocedural states; Z79.4 Long term (current) use of insulin
CPT/HCPCS: 80053; 85025; 85651; 86140; 87070; 87077; 87186; 87205

== ENCOUNTER → 2021-01-11 10:20 | Outpatient (CLI) | payer MEDICARE, OTHER, SELFPAY ==
[2021-01-11 12:13] LABS: Ferritin 56.2 ng/ml (11.1-264)
[2021-01-11 12:44] LABS: Vitamin B12 277 pg/mL (239-931)
[2021-01-11 12:59] LABS: Folate > 20.00 ng/mL
== END ==
PROVIDERS: Visit Provider Nurse Practitioner Family
DX: E13.10 Other specified diabetes mellitus with ketoacidosis without coma (principal); G25.9 Extrapyramidal and movement disorder, unspecified
CPT/HCPCS: 36415; 82607; 82728; 82746

== ENCOUNTER → 2021-01-12 12:23 | Outpatient (CLI) | payer MEDICARE, OTHER, SELFPAY ==
[2021-01-13 04:16] LABS: Homocyst(e)ine 13.9 umol/L (0.0-17.2)
[2021-01-14 23:47] LABS: Methylmalonic Acid 904 nmol/L (0-378)
== END ==
PROVIDERS: Visit Provider Nurse Practitioner Family
DX: E53.8 Deficiency of other specified B group vitamins (principal); I10 Essential (primary) hypertension
CPT/HCPCS: 36415; 82131; 83090

== ENCOUNTER → 2021-01-19 13:15 | Outpatient (CLI) | payer MEDICARE, OTHER, SELFPAY | PROVIDERS: PCP Family Medicine; Visit Provider Nurse Practitioner Family | DX: R06.83 Snoring (principal); R53.83 Other fatigue; Z68.41 Body mass index [BMI] 40.0-44.9, adult ==

== ENCOUNTER → 2021-02-09 20:07 | Outpatient (CLI) | payer MEDICARE, OTHER, SELFPAY | PROVIDERS: PCP Family Medicine; Visit Provider Nurse Practitioner Family | DX: G47.33 Obstructive sleep apnea (adult) (pediatric) (principal) | CPT/HCPCS: 95810 ==

== ENCOUNTER → 2021-09-15 15:07 | Outpatient (CLI) | payer MEDICARE, OTHER, SELFPAY ==
--- NOTE | 2021-09-15 15:17 | XR_ITS ---
FINAL REPORT CLINICAL HISTORY: pain, fall FINDINGS: RIGHT FOOT 3 weight-bearing views were obtained. There is no acute fracture or dislocation. There are mild degenerative changes. There are small calcaneal spurs. There is soft tissue swelling of the forefoot. There are vascular calcifications. IMPRESSION: No acute bony abnormality. Reviewed, Interpreted and Dictated by Sherwin Winston III, MD Transcribed by Maria A Quintero Authenticated by Sherwin Winston III, MD on 09/15/2021 04:45:19 PM [facility]
--- NOTE | 2021-09-15 15:17 | XR_ITS ---
FINAL REPORT CLINICAL HISTORY: pain, fall FINDINGS: RIGHT ANKLE: Three weight-bearing views of the left ankle were obtained. There is no acute fracture or dislocation. There is mild degenerative change. There is a small calcification inferior to the medial malleolus of uncertain age. There is a calcification adjacent to the lateral talus. There is medial and lateral soft tissue swelling. There are vascular calcifications. IMPRESSION: Soft tissue swelling with calcifications as described and degenerative change. Reviewed, Interpreted and Dictated by Sherwin Winston III, MD Transcribed by Maria A Quintero Authenticated by Sherwin Winston III, MD on 09/15/2021 04:45:23 PM [facility]
== END ==
PROVIDERS: PCP Family Medicine; Visit Provider Podiatrist
DX: M79.672 Pain in left foot; M79.671 Pain in right foot; M25.572 Pain in left ankle and joints of left foot; M25.571 Pain in right ankle and joints of right foot
CPT/HCPCS: 73610; 73630

== ENCOUNTER 2022-10-06 12:56 | Emergency (ER) | payer MEDICARE, OTHER, SELFPAY ==
--- NOTE | 2022-10-06 13:04 | HMH.EDGENADL ---
Discharge Plan Disposition Patient Disposition: Home, Self-Care Prescriptions Prescriptions: No Action aspirin [Jacki Low Dose Aspirin] 81 mg tablet,delayed release (DR/EC) 81 mg PO DAILY ketoconazole 2 % cream 1 applic TP DAILY Qty: 60 2RF Rx Instructions: apply to affected area daily carbidopa-levodopa 25-100 mg tablet 3 tab PO TID 90 Days Qty: 810 1RF fenofibrate nanocrystallized 145 mg tablet 145 mg PO DAILY Rybelsus 7 mg tablet 7 mg PO DAILY Rexulti 1 mg tablet 1 mg PO DAILY Qty: 90 1RF duloxetine 60 mg capsule,delayed release(DR/EC) 60 mg PO DAILY Qty: 90 0RF duloxetine 30 mg capsule,delayed release(DR/EC) 30 mg PO DAILY Qty: 90 0RF Rx Instructions: take with the 60mg capsule; dosage is 90mg total daily. fluoxetine 40 mg capsule 40 mg PO DAILY Qty: 90 0RF biotin 5 MG capsule 5 mg PO TID ofjunqykmhp-gdrhtkjzq-ukj C-Mn 1 EACH tablet 2 each PO BID coenzyme Q10 100 MG capsule 100 mg PO DAILY krill zwu-uutef-[id number]-epa 1 EACH capsule 1 each PO DAILY cinnamon bark-chromium picolin 1 EACH capsule 2 cap PO BID calcium carbonate-vitamin D3 1 EACH tablet 1 each PO BID L.acidoph, paracasei,B. lactis 1 EACH capsule 1 each PO DAILY gabapentin 300 MG capsule 300 mg PO TID metformin 500 MG tablet 1,000 mg PO BID atorvastatin 20 MG tablet 20 mg PO HS meloxicam 7.5 MG tablet 7.5 mg PO DAILY ascorbic acid (vitamin C) 1,000 MG tablet,chewable 1,000 mg PO DAILY multivitamin 1 EACH capsule 1 each PO DAILY vitamin B complex 1 EACH capsule 1 each PO DAILY lisinopril 20 mg tablet 40 mg PO DAILY insulin aspart U-100 100 unit/mL (3 mL) insulin pen See Rx Instructions SQ DIRECTED Rx Instructions: 45 UNITS BREAKFAST/35 UNITS LUNCH/45 UNITS DINNER SQ as directed; insulin glargine 100 unit/mL solution 80 unit SQ BID metoprolol succinate 50 mg tablet extended release 24 hr 50 mg PO DAILY Referrals Follow up/Referrals: Ricky Jnoes MD [Primary Care Provider] - See instructions Clinical Impressions Clinical Impression: Hypoglycemia Instructions Patient Instructions: DI for Hyperglycemia -- Adult Discharge ED Provider: Sj Abdullahi General Adult HPI General Chief complaint: Hyper/Hypoglycemia Stated complaint: blood surgar Time Seen by Provider: 10/06/22 13:05 History of Present Illness HPI narrative: 62-year-old female with a history of diabetes on oral hypoglycemic agents as well as insulin presents today with feeling like her blood sugar is low. She states she was at [employer] with her significant other and that she started to feel like her blood sugar was getting low and they came to the emergency department today. She says she has not had much to eat today. Has not taken any additional doses of insulin that she is aware of. Related Data Home Medications Medication Instructions Recorded Confirmed ascorbic acid (vitamin C) 1,000 mg 1,000 mg PO DAILY Supplement 07/05/17 08/24/22 chewable tablet atorvastatin 20 mg tablet 20 mg PO HS High cholesterol 07/05/17 08/24/22 gabapentin 300 mg capsule 300 mg PO TID Pain 07/05/17 08/24/22 meloxicam 7.5 mg tablet 7.5 mg PO DAILY Inflammation 07/05/17 08/24/22 metformin 500 mg tablet 1,000 mg PO BID Diabetes 07/05/17 08/24/22 multivitamin 1 each PO DAILY Supplement 07/05/17 08/24/22 vitamin B complex 1 each PO DAILY Supplement 07/05/17 08/24/22 L.acidoph, parachenryi,B. lactis 10 1 each PO DAILY Supplement 10/09/18 08/24/22 billion cell capsule biotin 5 mg capsule 5 mg PO TID Supplement 10/09/18 08/24/22 calcium carbonate 600 mg-vitamin 1 each PO BID Supplement 10/09/18 08/24/22 D3 20 mcg (800 unit) tablet cinnamon bark-chromium picolinate 2 cap PO BID Supplement 10/09/18 08/24/22 500 mg-100 mcg capsule coenzyme Q10 100 mg capsule 100 mg PO DAILY Supplement 10/09/18
[2022-10-06 13:09] VITALS: BP 160/86; PULSE 69; RESP 16; TEMP 36.4; O2SAT 98; BMI 38.4
--- NOTE | 2022-10-06 13:25 | PC.NURSE ---
Meal tray provided.
--- NOTE | 2022-10-06 14:05 | PC.NURSE ---
FSBS 73. notified. Observation and recheck x 1 hr.
--- NOTE | 2022-10-06 15:07 | PC.NURSE ---
FSBS 86. notified.
[2022-10-06 15:20] VITALS: BP 156/88; PULSE 77; RESP 16; TEMP 36.6; O2SAT 97
[2022-10-06 15:30] LABS: POC Glucose,Bedside 86 (70-110)
[2022-10-06 15:30] LABS: POC Glucose,Bedside 73 (70-110)
== END 2022-10-06 15:26 | disposition home or self-care (01) ==
PROVIDERS: Emergency Provider Student in an Organized Health Care Education/Training Program; PCP Family Medicine
DX: E11.649 Type 2 diabetes mellitus with hypoglycemia without coma (principal)
CPT/HCPCS: 82962; 99283

== ENCOUNTER 2022-11-11 08:44 | Day surgery (SDC) | payer MEDICARE, OTHER, SELFPAY ==
[2022-11-10 13:01] VITALS: BMI 41.9
[2022-11-11] VITALS (7 sets, daily range): BP systolic 112–141; BP diastolic 43–88; PULSE 74–84; RESP 16–18; TEMP 36.4–36.6; O2SAT 94–96
--- NOTE | 2022-11-11 10:12 | HMH.SCOPE ---
Procedure: Date: 11/11/22 Patient Date of :: 1960 Procedure Performed:: Total colonoscopy to terminal ileum with polypectomy using biopsy forceps Indications:: Patient is a 62-year-old significantly debilitated female with multiple comorbidities with a BMI of 42 who presents for surveillance colonoscopy due to history of polyps. I had performed screening colonoscopy on her June 2015 at which time she had 5 tubular adenomas removed. 3-year colonoscopy was recommended. Interestingly, the patient did undergo colonoscopy July [address] Kelly and she had some tubular adenomas removed. I performed colonoscopy 08/21/2018 at which time she had a serrated adenoma. 3-year colonoscopy was recommended. Performing Provider:: Sherwin Summers MD Referring Provider:: Ricky Jones MD Sedation:: MAC sedation Procedure:: Patient history was obtained and appropriate physical examination was performed. Patient's medications and allergies were reviewed. Informed consent was obtained after explaining the benefits, alternatives, and risks of the procedure including, but not limited to, bleeding, perforation, missed lesions, and adverse reaction to anesthesia medications. Patient was transported to endoscopy procedure room. Patient was connected to monitoring devices. Throughout the procedure the patient's blood pressure, pulse, and oxygen saturations were monitored continuously. Patient identification and planned procedure were verified by the staff. Patient was positioned in lateral decubitus position. Digital anorectal exam was performed. Variable stiffness Olympus colonoscope was inserted and advanced under direct visualization to the cecum. Adequacy of the colonic preparation was noted. The colonoscope was advanced a short distance into the terminal ileum. The colonoscope was then slowly withdrawn while carefully examining the color, texture, anatomy, and integrity of the mucosoa circumferentially. Within the rectum retroflexion was performed. Colonoscope was then withdrawn. Findings:: She had a rather poor preparation with a significant amount of particulate opaque stool and undigested food and vegetable matter throughout the colon. High-volume trans colonoscopic irrigation and suctioning was performed which allowed for decent visualization. There was a possible diminutive tiny minuscule polyp near the hepatic flexure which was removed with cold biopsy forceps. There were some scattered rare sigmoid diverticuli. Impression: Poor preparation with opaque particulate stool and undigested food and vegetable matter Possible polyp near the hepatic flexure Rare sigmoid diverticuli Recommendations:: Given the suboptimal preparation with history of numerous adenomatous polyps recommend repeat colonoscopy likely in about 3 years with aggressive prep. However, given the patient's comorbidities and apparent lack of ability to fully prep consideration may be given for Cologuard testing for screening. Complications:: None immediately apparent Estimated blood obtained (mL): 1
--- NOTE | 2022-11-11 10:23 | EXP.ANES.CKL ---
[facility] Disclaimer: The information contained in this section may have been updated after the patient was seen, as this information can be updated by other users. Medical History Bilateral impacted cerumen Breast cancer Chronic external ear infection Diabetes mellitus, type 2 Hyperlipidemia Hypertension Osteoarthritis Parkinson disease Recurrent major depression resistant to treatment Urinary tract infection Surgical History History of carpal tunnel surgery of left wrist History of cholecystectomy History of lumpectomy of left breast History of lumpectomy of left breast Hx of cholecystectomy Family History Other Cancer Coronary artery disease Diabetes Hyperlipidemia Hypertension Stroke Social History Smoking Status: Never smoker alcohol intake: never substance use type: denies use current occupational status: disabled Travel in the last 8 weeks: None household members: spouse housing: house number of children: 0 current occupational exposures/hazards: No caffeine: Yes [facility] Anesthesia Checklist Patient Identification Patient Identification: Arm Band and Family Structural Data Admitted From: Home Planned Operative Procedure/s: colonoscopy Consent for Planned Operative Procedure(s) Verified: Yes NPO Status Verified Time NPO: 00:00 Additional verifications Fingerstick Blood Glucose: 64 Patient : No Anesthesia Reactions: No Hx Blood Transfusions: No Blood Transfusion Reaction: No Cephalosporin Allergy: No Previous Colonoscopy: No Airway Assessment C-Spine Mobility Assessed: Yes TMJ Mobility Assessed: Yes Dentition: Edentulous Neurological Assessment Level of Consciousness: Awake, Alert and Appropriate Hx Seizures: No Numbness or tingling in extremities: No Anesthesia Plan Anesthesia Risk discussed: Yes ASA Class: III Anesthesia Type: MAC Preoperative Comments Pre-Operative Comments: 12.5 D50 iv for low blood glucose. HYPERTENSION. INCREASED WEIGHT.
[2022-11-11 11:11] LABS: POC Glucose,Bedside 97 (70-110)
[2022-11-11 11:14] LABS: POC Glucose,Bedside 64 (70-110)
== END 2022-11-11 10:55 | disposition home or self-care (01) ==
PROVIDERS: PCP Family Medicine; Visit Provider Surgery
PROC: 0DJD8ZZ Inspection of Lower Intestinal Tract, Via Natural or Artificial Opening Endoscopic (ICD-10-PCS; principal; 2022-11-11 10:00)
DX: Z12.11 Encounter for screening for malignant neoplasm of colon (principal); K63.5 Polyp of colon; Z91.199 Patient's noncompliance with other medical treatment and regimen due to unspecified reason; Z79.899 Other long term (current) drug therapy; E11.9 Type 2 diabetes mellitus without complications
CPT/HCPCS: 45380; 82962; 88305; J2704

== ENCOUNTER → 2023-06-08 11:22 | Outpatient (POV) | payer MEDICARE, OTHER, SELFPAY | PROVIDERS: Visit Provider Specialist/Technologist | DX: Z00.00 Encounter for general adult medical examination without abnormal findings (principal) ==

== ENCOUNTER 2023-11-07 18:36 | Observation (INO) | payer MEDICARE, OTHER, SELFPAY ==
[2023-11-07] VITALS (10 sets, daily range): BP systolic 127–160; BP diastolic 62–87; PULSE 75–85; RESP 16–20; TEMP 36.5–36.8; O2SAT 95–98; BMI 29.7; BMI 28.8
--- NOTE | 2023-11-07 18:40 | HMH.EDGENADL ---
Discharge Plan Disposition Patient Disposition: Admitted Condition: Serious Clinical Impressions Clinical Impression: Hypoglycemia associated with type 2 diabetes mellitus Discharge ED Provider: Xavi Nicholson General Adult HPI <DEYVI Mejia - Last Filed: 11/07/23 21:34> General Chief complaint: Hyper/Hypoglycemia Stated complaint: Diabetic Emerg Time Seen by Provider: 11/07/23 18:40 History of Present Illness HPI narrative: Patient presents for evaluation of low blood sugar. Patient states that she started feeling bad today and checked her blood sugar and it was in the 50s. She tried to eat something and go to congregation however she continued to feel bad and EMS was called. When they arrived her blood sugar was in the 50s. They administered D50 and patient was hypoglycemic by the time she arrived here. Patient reports that she has a is a type 2 insulin-dependent diabetic on both prandial and long-acting insulin as well as a GLP-1. Patient denies chest pain shortness of breath fever chills hemoptysis hematochezia melena nausea vomit diarrhea but does report significant diaphoresis. Related Data Home Medications Medication Instructions Recorded Confirmed ascorbic acid (vitamin C) 1,000 mg 1,000 mg PO DAILY Supplement 07/05/17 11/07/23 chewable tablet atorvastatin 20 mg tablet 20 mg PO HS High cholesterol 07/05/17 11/07/23 gabapentin 300 mg capsule 300 mg PO TID 07/05/17 11/07/23 meloxicam 7.5 mg tablet 7.5 mg PO DAILY 07/05/17 11/07/23 metformin 500 mg tablet 1,000 mg PO BID Diabetes 07/05/17 11/07/23 multivitamin 1 each PO DAILY Supplement 07/05/17 11/07/23 L.acidoph, paracasei,B. lactis 10 1 each PO DAILY Supplement 10/09/18 11/07/23 billion cell capsule biotin 5 mg capsule 6 mg PO BID Supplement 10/09/18 11/07/23 calcium carbonate 600 mg-vitamin 1 each PO BID Supplement 10/09/18 11/07/23 D3 20 mcg (800 unit) tablet cinnamon bark-chromium picolinate 2 cap PO BID Supplement 10/09/18 11/07/23 500 mg-100 mcg capsule coenzyme Q10 100 mg capsule 100 mg PO DAILY Supplement 10/09/18 11/07/23 evlanboaimo-lhvzujiqz-wie C-Mn 750 2 each PO BID Supplement 10/09/18 11/07/23 mg-600 mg-55 mg-5 mg tablet krill fhd-qnkly-9-dha-epa 300 1 each PO DAILY Supplement 10/09/18 11/07/23 mg-90 mg (27 mg-45 mg) capsule aspirin 81 mg tablet,delayed 81 mg PO DAILY 05/09/19 11/07/23 release (Jacki Low Dose Aspirin) fenofibrate nanocrystallized 145 145 mg PO DAILY 10/30/19 11/07/23 mg tablet lisinopril 20 mg tablet 20 mg PO DAILY Hypertension 10/30/19 11/08/23 semaglutide 7 mg tablet (Rybelsus) 7 mg PO DAILY Diabetes 07/05/21 11/07/23 metoprolol succinate 50 mg 50 mg PO DAILY 07/05/22 11/07/23 tablet,extended release 24 hr insulin aspart U-100 100 unit/mL 0 unit SQ DIRECTED Diabetes 02/01/23 11/08/23 (3 mL) subcutaneous pen insulin glargine 100 unit/mL 70 unit SQ BID Diabetes 02/22/23 11/07/23 subcutaneous solution pen needle, diabetic 31 gauge x #1,200 ea 05/24/23 11/07/2309/15 (BD Ultra-Fine Mini Pen Needle) semaglutide 7 mg tablet (Rybelsus) 7 mg PO DAILY 11/07/23 11/07/23 duloxetine 30 mg capsule,delayed 30 mg PO DAILY 11/08/23 11/08/23 release fluoxetine 40 mg capsule 40 mg PO DAILY 11/08/23 11/08/23 levocetirizine 5 mg tablet 5 mg PO DAILY 11/08/23 11/08/23 Previous Rx's Medication Instructions Recorded carbidopa 25 mg-levodopa 100 mg 3 tab PO TID Tremor 90 days #810 09/05/23 tablet tabs brexpiprazole 1 mg tablet (Rexulti) 1 mg PO DAILY Depression #90 tabs 10/09/23 duloxetine 60 mg capsule,delayed 60 mg PO DAILY #90 caps 10/09/23 release azelastine 137 mcg (0.1 %) nasal 2 spray intranasal BID #30 mL 10/31/23 spray aerosol Allergies Allergy/AdvReac Type Severity Reaction Status Date / Time No Known Allergies Allergy Verified 10/09/23 11:06 [facility] <DEYVI Mejia - Last Filed: 11/07/23 21:34> [facility] Disclaimer: The information contained in this section may have been updated after the patient was seen, as this information can be updated by other users. Medical History Otitis externa of left ear Mixed hearing loss of left ear SNHL (sensorineural hearing loss) Dizziness Bilateral hearing loss Urinary tract infection Parkinson disease Osteoarthritis Diabetes mellitus, type 2 Hyperlipidemia Hypertension Breast cancer Bilateral impacted cerumen Chronic external ear infection Recurrent major depression resistant to treatment Surgical History History of lumpectomy of left breast History of cholecystectomy History of lumpectomy of left breast History of carpal tunnel surgery of left wrist Hx of cholecystectomy Family History Diabetes Coronary artery disease Hyperlipidemia Cancer Hypertension Stroke Social History Smoking Status: Never smoker alcohol intake: never substance use type: denies use current occupational status: disabled Travel in the last 8 weeks: None household members: spouse housing: house number of children: 0 current occupational exposures/hazards: No caffeine: Yes <DEYVI Mejia - Last Filed: 11/07/23 21:34> ROS Obtained: Yes Systems reviewed as appropriate & no additional complaints except as documented Physical Exam <DEYVI Mejia - Last Filed: 11/07/23 21:34> General General appearance: alert and in no apparent distress Head Head exam: atraumatic and normal inspection Eye Eye exam: Present normal appearance, PERRL and EOMI ENT ENT exam: Present normal exam, normal oropharynx and mucous membranes moist Neck Neck exam: Present normal inspection, full ROM and trachea midline; Absent lymphadenopathy Chest Chest inspection: Present normal inspection and symmetric chest wall rise Respiratory Respiratory exam: Present normal lung sounds bilaterally; Absent accessory muscle use Cardiovascular Cardiovascular exam: Present regular rate, normal rhythm, normal heart sounds, +S1 and +S2 Abdominal Exam Abdominal exam: Present soft and normal bowel sounds; Absent tenderness, guarding or rebound Extremities Exam Extremities exam: Present normal inspection and full ROM Back Exam Back exam: Present normal inspection, full ROM and tenderness Neurological Exam Neurological exam: Present alert, oriented X3 and CN II-XII intact Psychiatric Psychiatric exam: Present normal affect and normal mood Skin Skin exam: Present warm, dry and normal color Medical Decision Making <DEYVI Mejia - Last Filed: 11/07/23 21:34> Medical Records Medical records reviewed: Yes I reviewed the patient's medical records. Gunner Inquiry Pt receiving controlled substance: No Vital Signs: 11/07/23 18:48 11/07/23 19:00 11/07/23 19:30 Temperature 98.2 F Temperature Source Oral Pulse Rate 85 78 Pulse Rate [Left Radial] 84 Respiratory Rate 20 18 18 Blood Pressure 139/62 145/68 H Blood Pressure [Right Arm] 127/68 Blood Pressure Mean [Right Arm] 87 02 Sat by Pulse Oximetry 98 97 98 Oxygen Delivery Method Room Air Room Air Room Air 11/07/23 20:00 11/07/23 20:30 11/07/23 21:00 Temperature Temperature Source Pulse Rate 77 75 75 Pulse Rate [Left Radial] Respiratory Rate 16 18 16 Blood Pressure 128/73 144/79 H 146/77 H Blood Pressure [Right Arm] Blood Pressure Mean [Right Arm] 02 Sat by Pulse Oximetry 97 95 97 Oxygen Delivery Method Room Air Room Air Room Air 11/07/23 21:30 11/07/23 22:00 11/07/23 22:20 Temperature 97.7 F Temperature Source Oral Pulse Rate 76 78 Pulse Rate [Left Radial] 77 Respiratory Rate 18 16 16 Blood Pressure 160/87 H 156/84 H Blood Pressure [Right Arm] 156/84 H Blood Pressure Mean [Right Arm] 108 02 Sat by Pulse Oximetry 97 98 97 Oxygen Delivery Method Room Air Room Air Room Air 11/07/23 22:22 Temperature 98.2 F Temperature Source Pulse Rate 78 Pulse Rate [Left Radial] Respiratory Rate 20 Blood Pressure 156/84 H Blood Pressure [Right Arm] Blood Pressure Mean [Right Arm] 02 Sat by Pulse Oximetry Oxygen Delivery Method Room Air Lab Data Lab results reviewed: Yes I reviewed the patient's lab results. Lab Results 11/07/23 19:02: WBC 9.8, RBC 4.39, Hgb 13.0, Hct 40.4, MCV 92.2, MCH 29.6, MCHC 32.1, RDW 14.6, Plt Count 146, MPV 9.7, Neut % (Auto) 76.4, Lymph % (Auto) 15.4, [place] % (Auto) 4.7, Eos % (Auto) 3.0, Baso % (Auto) 0.6, Neut # (Auto) 7.5, Lymph # (Auto) 1.5, [place] # (Auto) 0.5, Eos # (Auto) 0.3, Baso # (Auto) 0.1, Sodium 141, Potassium 4.6, Chloride 108 H, Carbon Dioxide 23, Anion Gap 14.6, BUN 18 H, Creatinine 0.70, Estimated Creat Clear 68, Estimated GFR 84, Est GFR ( Amer) 102, Glucose 104 H, Hemoglobin A1c 5.6, Calcium 8.5, Magnesium 1.5 L, Total Bilirubin 0.8, AST 59 H, ALT 15, Alkaline Phosphatase 35 L, Troponin I < 0.01, Total Protein 6.5, Albumin 3.8, Globulin 2.7, Albumin/Globulin Ratio 1.4 11/07/23 22:15: Troponin I < 0.01 11/07/23 19:02 11/08/23 06:25 Orders (Tests/Meds): ED MEDICATIONS Generic Name Dose Route Start Last Admin Trade Name Freq PRN Reason Stop Dose Admin Atorvastatin Calcium 20 mg 11/08/23 21:00 Atorvastatin 20mg Tablet PO 12/08/23 20:59 HS JEFFERSON Carbidopa/Levodopa 3 each 11/08/23 09:00 11/08/23 12:10 Carbidopa/Levodopa 25/100mg Tablet PO 12/08/23 08:59 3 each TID JEFFERSON Administration Duloxetine HCl 90 mg 11/08/23 09:00 11/08/23 09:42 Duloxetine 30mg Capsule. PO 12/08/23 08:59 90 mg DAILY JEFFERSON Administration Fluoxetine HCl 40 mg 11/08/23 09:00 11/08/23 09:42 Fluoxetine 20mg Capsule PO 12/08/23 08:59 40 mg DAILY JEFFERSON Administration Gabapentin 300 mg 11/08/23 09:00 11/08/23 12:10 Gabapentin 300mg Capsule PO 12/08/23 08:59 300 mg TID JEFFERSON Administration Ceftriaxone Sodium 1 gm/ 50 mls @ 100 mls/hr 11/08/23 09:00 11/08/23 09:42 Sodium Chloride IV 11/18/23 08:59 100 mls/hr Q24H JEFFERSON Administration Insulin Human Lispro 0 unit 11/08/23 06:00 11/08/23 11:33 Humalog 100 Units/Ml 3ml Vial (Ssi) SQ 12/08/23 05:59 5 unit ACHS EJFFERSON Administration Protocol Lisinopril 20 mg 11/08/23 09:00 11/08/23 09:41 Lisinopril 20mg Tablet PO 12/08/23 08:59 20 mg DAILY JEFFERSON Administration Metoprolol Succinate 50 mg 11/08/23 09:00 11/08/23 09:42 Metoprolol Succinate Xl 50mg Tablet PO 12/08/23 08:59 50 mg DAILY JEFFERSON Administration Sodium Chloride 10 ml 11/08/23 10:39 Sodium Chloride 0.9% 10ml Flush Syringe IV 12/08/23 10:38 NEEDED PRN Maintain IV Site Discontinued Medications Generic Name Dose Route Start Last Admin Trade Name Freq PRN Reason Stop Dose Admin Dextrose 50 ml 11/08/23 05:45 11/08/23 05:40 Dextrose 50% 50ml Syringe (Crash Cart) IV 11/08/23 05:46 50 ml ONCE ONE Administration Potassium Chloride/Dextrose/Sod Cl 1,000 mls @ 50 mls/hr 11/07/23 18:45 11/07/23 19:45 Kcl 20meq In D5w-0.45% Nacl IV 12/07/23 18:44 50 mls/hr .Q20H JEFFERSON Administration Magnesium Sulfate 2 gm in 50 mls @ 50 mls/hr 11/07/23 20:01 11/07/23 20:12 Magnesium Sulfate 2gm/50ml Premix IV 11/07/23 21:00 50 mls/hr ONCE ONE Administration Potassium Chloride/Dextrose/Sod Cl 1,000 mls @ 50 mls/hr 11/07/23 21:54 11/07/23 22:35 Kcl 20meq In D5w-0.45% Nacl IV 12/07/23 18:44 50 mls/hr .Q20H JEFFERSON Administration Insulin Human Lispro 0 unit 11/07/23 21:54 11/07/23 22:45 Humalog 100 Units/Ml 3ml Vial (Ssi) SQ 06/06/24 21:53 Not Given Q6H JEFFERSON Protocol Non-Formulary Medication 60 mg 11/08/23 09:00 11/08/23 11:19 Duloxetine PO 12/08/23 08:59 Not Given DAILY JEFFERSON ORDERS Category Date Time Status BMP [Basic Metabolic Panel] AMLAB Lab 11/08/23 06:25 Completed CBC w/Auto Diff [Complete Blood Count Auto Diff] Stat Lab 11/07/23 19:02 Completed CMP [Comprehensive Metabolic Panel] Stat Lab 11/07/23 19:02 Completed Hemoglobin A1C Stat Lab 11/07/23 19:02 Completed Magnesium Stat Lab 11/07/23 19:02 Completed Trop I [Troponin I] Stat Lab 11/07/23 19:02 Completed Troponin I Q3H Lab 11/07/23 22:15 Completed Troponin I Q3H Lab 11/08/23 01:20 Completed UA [Urinalysis and Microscopic] Stat Lab 11/08/23 04:10 Completed Urine Culture Stat Micro 11/08/23 04:10 Results Medical Decision Narrative: In summary patient is a 63-year-old female who presents to the emergency department for evaluation of hypoglycemia. Patient is patient is normotensive with a blood pressure 127/68 heart rate of 84 satting at 98% on room air breathing 20 times a minute upon arrival, and afebrile. Physical exam shows a diaphoretic and unwell appearing 63-year-old female who otherwise is in no acute distress. Physical exam is otherwise nonfocal.. Differential diagnosis includes sepsis, ACS, DKA, therapeutic misadventure, polypharmacy etc. Initial workup will be conducted with hematologic labs. Initial interventions include starting D5 infusion. Initial workup reviewed by me shows that her hematologic labs are nonactionable and urinalysis is bland.. Upon repeat evaluation patient still has persistently low blood sugar despite D5 infusion suggesting that the patient is inadvertently on too many hypoglycemics or inadvertently overdosed on her long-acting. Given this I had an interactive discussion with the on-call physician for Dr. Jones who agreed for admission <Xavi Nicholson MD - Last Filed: 11/08/23 15:01> Vital Signs: 11/07/23 18:48 11/07/23 19:00 11/07/23 19:30 Temperature 98.2 F Temperature Source Oral Pulse Rate 85 78 Pulse Rate [Left Radial] 84 Respiratory Rate 20 18 18 Blood Pressure 139/62 145/68 H Blood Pressure [Right Arm] 127/68 Blood Pressure Mean [Right Arm] 87 02 Sat by Pulse Oximetry 98 97 98 Oxygen Delivery Method Room Air Room Air Room Air 11/07/23 20:00 11/07/23 20:30 11/07/23 21:00 Temperature Temperature Source Pulse Rate 77 75 75 Pulse Rate [Left Radial] Respiratory Rate 16 18 16 Blood Pressure 128/73 144/79 H 146/77 H Blood Pressure [Right Arm] Blood Pressure Mean [Right Arm] 02 Sat by Pulse Oximetry 97 95 97 Oxygen Delivery Method Room Air Room Air Room Air 11/07/23 21:30 11/07/23 22:00 11/07/23 22:20 Temperature 97.7 F Temperature Source Oral Pulse Rate 76 78 Pulse Rate [Left Radial] 77 Respiratory Rate 18 16 16 Blood Pressure 160/87 H 156/84 H Blood Pressure [Right Arm] 156/84 H Blood Pressure Mean [Right Arm] 108 02 Sat by Pulse Oximetry 97 98 97 Oxygen Delivery Method Room Air Room Air Room Air 11/07/23 22:22 Temperature 98.2 F Temperature Source Pulse Rate 78 Pulse Rate [Left Radial] Respiratory Rate 20 Blood Pressure 156/84 H Blood Pressure [Right Arm] Blood Pressure Mean [Right Arm] 02 Sat by Pulse Oximetry Oxygen Delivery Method Room Air Lab Data Lab Results 11/07/23 19:02: WBC 9.8, RBC 4.39, Hgb 13.0, Hct 40.4, MCV 92.2, MCH 29.6, MCHC 32.1, RDW 14.6, Plt Count 146, MPV 9.7, Neut % (Auto) 76.4, Lymph % (Auto) 15.4, [place] % (Auto) 4.7, Eos % (Auto) 3.0, Baso % (Auto) 0.6, Neut # (Auto) 7.5, Lymph # (Auto) 1.5, [place] # (Auto) 0.5, Eos # (Auto) 0.3, Baso # (Auto) 0.1, Sodium 141, Potassium 4.6, Chloride 108 H, Carbon Dioxide 23, Anion Gap 14.6, BUN 18 H, Creatinine 0.70, Estimated Creat Clear 68, Estimated GFR 84, Est GFR ( Amer) 102, Glucose 104 H, Hemoglobin A1c 5.6, Calcium 8.5, Magnesium 1.5 L, Total Bilirubin 0.8, AST 59 H, ALT 15, Alkaline Phosphatase 35 L, Troponin I < 0.01, Total Protein 6.5, Albumin 3.8, Globulin 2.7, Albumin/Globulin Ratio 1.4 11/07/23 22:15: Troponin I < 0.01 Orders (Tests/Meds): ED MEDICATIONS Generic Name Dose Route Start Last Admin Trade Name Kaylin PRN Reason Stop Dose Admin Atorvastatin Calcium 20 mg 11/08/23 21:00 Atorvastatin 20mg Tablet PO 12/08/23 20:59 HS JEFFERSON Carbidopa/Levodopa 3 each 11/08/23 09:00 11/08/23 12:10 Carbidopa/Levodopa 25/100mg Tablet PO 12/08/23 08:59 3 each TID JEFFERSON Administration Duloxetine HCl 90 mg 11/08/23 09:00 11/08/23 09:42 Duloxetine 30mg Capsule. PO 12/08/23 08:59 90 mg DAILY JEFFERSON Administration Fluoxetine HCl 40 mg 11/08/23 09:00 11/08/23 09:42 Fluoxetine 20mg Capsule PO 12/08/23 08:59 40 mg DAILY JEFFERSON Administration Gabapentin 300 mg 11/08/23 09:00 11/08/23 12:10 Gabapentin 300mg Capsule PO 12/08/23 08:59 300 mg TID JEFFERSON Administration Ceftriaxone Sodium 1 gm/ 50 mls @ 100 mls/hr 11/08/23 09:00 11/08/23 09:42 Sodium Chloride IV 11/18/23 08:59 100 mls/hr Q24H JEFFERSON Administration Insulin Human Lispro 0 unit 11/08/23 06:00 11/08/23 11:33 Humalog 100 Units/Ml 3ml Vial (Ssi) SQ 12/08/23 05:59 5 unit ACHS JEFFERSON Administration Protocol Lisinopril 20 mg 11/08/23 09:00 11/08/23 09:41 Lisinopril 20mg Tablet PO 12/08/23 08:59 20 mg DAILY JEFFERSON Administration Metoprolol Succinate 50 mg 11/08/23 09:00 11/08/23 09:42 Metoprolol Succinate Xl 50mg Tablet PO 12/08/23 08:59 50 mg DAILY JEFFERSON Administration Sodium Chloride 10 ml 11/08/23 10:39 Sodium Chloride 0.9% 10ml Flush Syringe IV 12/08/23 10:38 NEEDED PRN Maintain IV Site Discontinued Medications Generic Name Dose Route Start Last Admin Trade Name Kaylin PRN Reason Stop Dose Admin Dextrose 50 ml 11/08/23 05:45 11/08/23 05:40 Dextrose 50% 50ml Syringe (Crash Cart) IV 11/08/23 05:46 50 ml ONCE ONE Administration Potassium Chloride/Dextrose/Sod Cl 1,000 mls @ 50 mls/hr 11/07/23 18:45 11/07/23 19:45 Kcl 20meq In D5w-0.45% Nacl IV 12/07/23 18:44 50 mls/hr .Q20H JEFFERSON Administration Magnesium Sulfate 2 gm in 50 mls @ 50 mls/hr 11/07/23 20:01 11/07/23 20:12 Magnesium Sulfate 2gm/50ml Premix IV 11/07/23 21:00 50 mls/hr ONCE ONE Administration Potassium Chloride/Dextrose/Sod Cl 1,000 mls @ 50 mls/hr 11/07/23 21:54 11/07/23 22:35 Kcl 20meq In D5w-0.45% Nacl IV 12/07/23 18:44 50 mls/hr .Q20H JEFFERSON Administration Insulin Human Lispro 0 unit 11/07/23 21:54 11/07/23 22:45 Humalog 100 Units/Ml 3ml Vial (Ssi) SQ 12/07/23 21:53 Not Given Q6H JEFFERSON Protocol Non-Formulary Medication 60 mg 11/08/23 09:00 11/08/23 11:19 Duloxetine PO 12/08/23 08:59 Not Given DAILY JEFFERSON ORDERS Category Date Time Status BMP [Basic Metabolic Panel] AMLAB Lab 11/08/23 06:25 Completed CBC w/Auto Diff [Complete Blood Count Auto Diff] Stat Lab 11/07/23 19:02 Completed CMP [Comprehensive Metabolic Panel] Stat Lab 11/07/23 19:02 Completed Hemoglobin A1C Stat Lab 11/07/23 19:02 Completed Magnesium Stat Lab 11/07/23 19:02 Completed Trop I [Troponin I] Stat Lab 11/07/23 19:02 Completed Troponin I Q3H Lab 11/07/23 22:15 Completed Troponin I Q3H Lab 11/08/23 01:20 Completed UA [Urinalysis and Microscopic] Stat Lab 11/08/23 04:10 Completed Urine Culture Stat Micro 11/08/23 04:10 Results Medical Decision Narrative: In summary patient is a 63-year-old female who presents to the emergency department for evaluation of hypoglycemia. Patient is patient is normotensive with a blood pressure 127/68 heart rate of 84 satting at 98% on room air breathing 20 times a minute upon arrival, and afebrile. Physical exam shows a diaphoretic and unwell appearing 63-year-old female who otherwise is in no acute distress. Physical exam is otherwise nonfocal.. Differential diagnosis includes sepsis, ACS, DKA, therapeutic misadventure, polypharmacy etc. Initial workup will be conducted with hematologic labs. Initial interventions include starting D5 infusion. Initial workup reviewed by me shows that her hematologic labs are nonactionable and urinalysis is bland.. Upon repeat evaluation patient still has persistently low blood sugar despite D5 infusion suggesting that the patient is inadvertently on too many hypoglycemics or inadvertently overdosed on her long-acting. Given this I had an interactive discussion with the on-call physician for Dr. Jones who agreed for admission I was consulted by the GINGER, and we discussed the complexity of the problems being addressed. I approved the treatment and management plan for this patient?s care in the Emergency Department, thus performing a substantive portion of the medical decision making. Xavi Nicholson MD Critical Care <DEYVI Mejia - Last Filed: 11/07/23 21:34> Critical Care Time Critical Care Time: No <Xavi Nicholson MD - Last Filed: 11/08/23 15:01> Critical Care Time Critical Care Time: Yes (endo) Attestation: On 11/07/23, the high probability of a clinically significant, sudden or life threatening deterioration of the following system(s) required my full and direct attention, intervention and personal management. The time I documented below is in addition to time spent performing reported procedures but includes the following listed in this critical care notation. Total Time Total Critical Care Time: 35
--- NOTE | 2023-11-07 19:06 | PC.NURSE ---
pt given PB
--- NOTE | 2023-11-07 19:06 | PC.NURSE ---
wants K+ results are back before starting K+ fluids that are ordered
[2023-11-07 19:13] LABS: Basophils # 0.1 K/mm3 (0-0.2); Basophils % 0.6 % (0.1-2.0); Eosinophils # 0.3 K/mm3 (0.0-0.4); Hematocrit 40.4 % (37.0-47.0); Lymphocytes # 1.5 K/mm3 (0.7-4.5); Lymphocytes % 15.4 % (10-50); Mean Corpuscular HGB Conc 32.1 g/dL (31.8-35.4); Mean Corpuscular Hemoglobin 29.6 pg (27.0-31.2); Mean Corpuscular Volume 92.2 fl (81-99); Mean Platelet Volume 9.7 fl (7.4-10.4); Monocytes # 0.5 K/mm3 (0.1-1.0); Monocytes % 4.7 % (1.7-9.3); Neutrophils # 7.5 K/mm3 (1.8-7.8); Neutrophils % 76.4 % (37.0-80.0); Platelet Count 146 K/mm3 (142-424); Red Blood Count 4.39 M/mm3 (4.20-5.40); Red Cell Distribution Width 14.6 % (11.5-17.5); White Blood Count 9.8 K/mm3 (4.8-10.8)
[2023-11-07 19:32] LABS: Alanine Aminotransferase 15 U/L (12-78); Albumin Level 3.8 g/dl (3.5-5.0); Albumin/Globulin Ratio 1.4 (1.1-1.8); Alkaline Phosphatase 35 U/L (38-126); Anion Gap 14.6 mEq/L (5-15); Aspartate Amino Transferase 59 U/L (14-36); Bilirubin,Total 0.8 mg/dl (0.2-1.3); Blood Urea Nitrogen 18 mg/dl (7-17); Calcium 8.5 mg/dl (8.4-10.2); Carbon Dioxide 23 mmol/L (22.0-30.0); Chloride 108 mmol/L (98-107); Creatinine Clearance Estimated 68 mL/min (50-200); Estimated Glomerular Filt Rate 84 ml/min (>60); GFR (African American) 102 ML/MIN (>60); Globulin 2.7 g/dL (1.3-3.2); Glucose 104 mg/dl (74-100); Magnesium 1.5 mg/dl (1.6-2.3); Potassium 4.6 mmoL/L (3.5-5.1); Sodium 141 mmol/L (136-145); Total Protein,Serum 6.5 g/dl (6.3-8.2)
[2023-11-07] MEDS: D5W/0.45% NaCl w/20mEq KCL 1,000 ML 50 ML IV ×2 (19:45→22:35)
[2023-11-07 19:46] LABS: Troponin I < 0.01 ng/ml (0.00-0.034)
[2023-11-07 20:01] LABS: Hemoglobin A1C 5.6 % (4.0-6.0)
[2023-11-07] MEDS: MAGNESIUM SULFATE IN WATER 2 GM/50 ML PIGGYBACK IV (20:12)
--- NOTE | 2023-11-07 21:20 | PC.NURSE ---
rounded on patient, no needs at this time
--- NOTE | 2023-11-07 21:27 | PC.NURSE ---
contacted [facility] for bed assignment. dx: persistent hypoglycemia, jasmyn simon.
--- NOTE | 2023-11-07 21:57 | PC.NURSE ---
Nurse to nurse report to Archana RN, confirmed bridge orders with Dr. Nicholson.
[2023-11-07 22:41] LABS: POC Glucose,Bedside 97 (70-110)
--- NOTE | 2023-11-07 22:47 | PC.NURSE ---
during admission, pt provided living will. Copy made and put into chart for pt - see chart for details.
[2023-11-07 23:00] LABS: Troponin I < 0.01 ng/ml (0.00-0.034)
[2023-11-08 00:10] LABS: POC Glucose,Bedside 83 (70-110)
[2023-11-08 02:06] LABS: POC Glucose,Bedside 98 (70-110)
[2023-11-08 02:16] LABS: Troponin I < 0.01 ng/ml (0.00-0.034)
[2023-11-08 04:00] VITALS: BP 163/74; PULSE 80; RESP 18; TEMP 36.4; O2SAT 96; BMI 41.1
[2023-11-08 04:26] LABS: Microscopic, Urine URINE MICROSCOPIC (MICROSCOPIC)
[2023-11-08 04:34] LABS: Appearance,Urine CLEAR (Clear); Bilirubin,Urine Negative (Negative); Blood, Urine Negative (Negative); Color,Urine YELLOW (Yellow); Glucose,Urine (UA) Negative (Negative); Ketones,Urine Negative (Negative); Leukocyte Esterase,Urine 1+ (Negative); Nitrate,Urine Negative (Negative); Protein,Urine Negative (Negative); Specific Gravity, Urine >= 1.030 (1.005-1.030); Urobilinogen,Urine 0.2 EU/dl (0.2)
[2023-11-08 04:46] LABS: Bacteria,Urine 4+ /lpf; Squamous Epithelial Cell,Urine Occasional #/hpf (0-5)
--- NOTE | 2023-11-08 05:06 | PC.NURSE ---
0400 FS result 53 Gave snacks and drinks Recheck 0434 52 Lost IV access Gave more snacks 0500 reading 51 Ultrasound guided IV placed Paged Dr. Matute @
[2023-11-08 05:31] LABS: POC Glucose,Bedside 53 (70-110)
--- NOTE | 2023-11-08 05:34 | PC.NURSE ---
Addendum entered by Archana Alan RN 11/08/23 05:38: 0515 FS 162 and patient feeling back to normal. Original Note: 0500 pt became symptomatic, sweating and feeling a little drowsy. Charge nurse, Katerin CRUZ at bedside. Pushed 1 amp of D50 per protocol, pt FS reading at the time. Pt IV D5w increased to 100ml/hr per protocol.
[2023-11-08] MEDS: DEXTROSE 50% 50ML SYRINGE (CRASH CART) 50 ML IV (05:40)
[2023-11-08 06:07] LABS: POC Glucose,Bedside 137 (70-110)
[2023-11-08 06:53] LABS: Anion Gap 18.3 mEq/L (5-15); Blood Urea Nitrogen 17 mg/dl (7-17); Calcium 9.1 mg/dl (8.4-10.2); Carbon Dioxide 20 mmol/L (22.0-30.0); Chloride 107 mmol/L (98-107); Creatinine Clearance Estimated 49 mL/min (50-200); Estimated Glomerular Filt Rate 84 ml/min (>60); GFR (African American) 102 ML/MIN (>60); Glucose 160 mg/dl (74-100); Potassium 4.3 mmoL/L (3.5-5.1); Sodium 141 mmol/L (136-145)
[2023-11-08 07:34] VITALS: BP 135/75; PULSE 93; RESP 16; TEMP 36.6; O2SAT 94
--- NOTE | 2023-11-08 07:43 | HMH.PHAINT1 ---
Pharmacy Intervention Comments: HOME MEDICATION LIST VERIFIED USING LIST FROM OUTPATIENT PHARMACY AND PHYSICIAN OFFICE NOTE
[2023-11-08 07:51] LABS: POC Glucose,Bedside 150 (70-110)
[2023-11-08 08:00] VITALS: O2SAT 94
--- NOTE | 2023-11-08 08:38 | EXP.HP ---
History of Present Illness *Admission Date: 11/07/23 *Reason for visit:: hypoglycemia *History of present illness: Patient presents for evaluation of low blood sugar. Patient states that she started feeling bad today and checked her blood sugar and it was in the 50s. She tried to eat something and go to [place] however she continued to feel bad and EMS was called. When they arrived her blood sugar was in the 50s. They administered D50 and patient was hypoglycemic by the time she arrived here. Patient reports that she has a is a type 2 insulin-dependent diabetic on both prandial and long-acting insulin as well as a GLP-1. Patient denies chest pain shortness of breath fever chills hemoptysis, hematochezia, melena, nausea, vomiting, diarrhea but does report significant diaphoresis. (above as per ER physician) The patient was given a D5 infusion in the ER and upon repeat evaluation, her blood sugars were still low. She was admitted for further evaluation and treatment. [facility] Disclaimer: The information contained in this section may have been updated after the patient was seen, as this information can be updated by other users. Medical History Otitis externa of left ear Mixed hearing loss of left ear SNHL (sensorineural hearing loss) Dizziness Bilateral hearing loss Urinary tract infection Parkinson disease Osteoarthritis Diabetes mellitus, type 2 Hyperlipidemia Hypertension Breast cancer Bilateral impacted cerumen Chronic external ear infection Recurrent major depression resistant to treatment Surgical History History of lumpectomy of left breast History of cholecystectomy History of lumpectomy of left breast History of carpal tunnel surgery of left wrist Hx of cholecystectomy Family History Diabetes Coronary artery disease Hyperlipidemia Cancer Hypertension Stroke Social History Smoking Status: Never smoker alcohol intake: never substance use type: denies use current occupational status: disabled Travel in the last 8 weeks: None household members: spouse housing: house number of children: 0 current occupational exposures/hazards: No caffeine: Yes Review of Systems Constitutional Constitutional: Denies fatigue, Denies headache(s) and Reports weakness Eyes Eyes: Denies blurry vision and Denies diplopia ENT Ears, Nose, Mouth, and Throat: Denies headache(s), Denies nasal congestion, Denies sore throat and Reports vertigo *Cardiovascular Cardiovascular: Denies chest pain, Denies dyspnea and Denies leg edema *Respiratory Respiratory: Denies cough and Denies dyspnea *Gastrointestinal Gastrointestinal: Denies abdominal pain, Denies loose stools, Denies nausea and Denies vomiting *Genitourinary Genitourinary: Denies difficulty voiding and Denies dysuria *Musculoskeletal Musculoskeletal: Denies arthralgias and Denies myalgias *Neurologic Neurologic: Denies headache(s), Reports vertigo and Reports weakness Endocrine Endocrine: Denies fatigue Meds Home Medications and Allergies Home Medications Medication Instructions Recorded Confirmed Type ascorbic acid (vitamin C) 1,000 mg 1,000 mg PO DAILY Supplement 07/05/17 11/07/23 History chewable tablet atorvastatin 20 mg tablet 20 mg PO HS High cholesterol 07/05/17 11/07/23 History gabapentin 300 mg capsule 300 mg PO TID 07/05/17 11/07/23 History meloxicam 7.5 mg tablet 7.5 mg PO DAILY 07/05/17 11/07/23 History metformin 500 mg tablet 1,000 mg PO BID Diabetes 07/05/17 11/07/23 History multivitamin 1 each PO DAILY Supplement 07/05/17 11/07/23 History L.acidoph, paracasei,B. lactis 10 1 each PO DAILY Supplement 10/09/18 11/07/23 History billion cell capsule biotin 5 mg capsule 6 mg PO BID Supplement 10/09/18 11/07/23 History calcium carbonate 600 mg-vitamin 1 each PO BID Supplement 10/09/18 11/07/23 History D3 20 mcg (800 unit) tablet cinnamon bark-chromium picolinate 2 cap PO BID Supplement 10/09/18 11/07/23 History 500 mg-100 mcg capsule coenzyme Q10 100 mg capsule 100 mg PO DAILY Supplement 10/09/18 11/07/23 History azbsarrvpee-ojgmkewzo-dez C-Mn 750 2 each PO BID Supplement 10/09/18 11/07/23 History mg-600 mg-55 mg-5 mg tablet krill wyg-hyffe-9-dha-epa 300 1 each PO DAILY Supplement 10/09/18 11/07/23 History mg-90 mg (27 mg-45 mg) capsule aspirin 81 mg tablet,delayed 81 mg PO DAILY 05/09/19 11/07/23 History release (Jacki Low Dose Aspirin) fenofibrate nanocrystallized 145 145 mg PO DAILY 10/30/19 11/07/23 History mg tablet lisinopril 20 mg tablet 20 mg PO DAILY Hypertension 10/30/19 11/08/23 History semaglutide 7 mg tablet (Rybelsus) 7 mg PO DAILY Diabetes 07/05/21 11/07/23 History metoprolol succinate 50 mg 50 mg PO DAILY 07/05/22 11/07/23 History tablet,extended release 24 hr insulin aspart U-100 100 unit/mL 0 unit SQ DIRECTED Diabetes 02/01/23 11/08/23 History (3 mL) subcutaneous pen insulin glargine 100 unit/mL 70 unit SQ BID Diabetes 02/22/23 11/07/23 History subcutaneous solution pen needle, diabetic 31 gauge x #1,200 ea 05/24/23 11/07/23 History 3/16 (BD Ultra-Fine Mini Pen Needle) carbidopa 25 mg-levodopa 100 mg 3 tab PO TID Tremor 90 days #810 09/05/23 11/07/23 Rx tablet tabs brexpiprazole 1 mg tablet (Rexulti) 1 mg PO DAILY Depression #90 tabs 10/09/23 11/07/23 Rx duloxetine 60 mg capsule,delayed 60 mg PO DAILY #90 caps 10/09/23 11/07/23 Rx release azelastine 137 mcg (0.1 %) nasal 2 spray intranasal BID #30 mL 10/31/23 11/07/23 Rx spray aerosol semaglutide 7 mg tablet (Rybelsus) 7 mg PO DAILY 11/07/23 11/07/23 History duloxetine 30 mg capsule,delayed 30 mg PO DAILY 11/08/23 11/08/23 History release fluoxetine 40 mg capsule 40 mg PO DAILY 11/08/23 11/08/23 History levocetirizine 5 mg tablet 5 mg PO DAILY 11/08/23 11/08/23 History New Prescriptions to Start Prescriptions: Allergies Allergy/AdvReac Type Severity Reaction Status Date / Time No Known Allergies Allergy Verified 10/09/23 11:06 Exam Data for Last 24 hours Vital signs and Labs for Last 24 Hours: Temp Pulse Resp BP Pulse Ox O2 Del Method 97.9 F 93 H 16 135/75 94 L Room Air 11/08/23 07:34 11/08/23 07:34 11/08/23 07:34 11/08/23 07:34 11/08/23 07:34 11/08/23 07:34 Laboratory Results - last 24 hr 11/07/23 19:02: WBC 9.8, RBC 4.39, Hgb 13.0, Hct 40.4, MCV 92.2, MCH 29.6, MCHC 32.1, RDW 14.6, Plt Count 146, MPV 9.7, Neut % (Auto) 76.4, Lymph % (Auto) 15.4, [place] % (Auto) 4.7, Eos % (Auto) 3.0, Baso % (Auto) 0.6, Neut # (Auto) 7.5, Lymph # (Auto) 1.5, [place] # (Auto) 0.5, Eos # (Auto) 0.3, Baso # (Auto) 0.1, Sodium 141, Potassium 4.6, Chloride 108 H, Carbon Dioxide 23, Anion Gap 14.6, BUN 18 H, Creatinine 0.70, Estimated Creat Clear 68, Estimated GFR 84, Est GFR ( Amer) 102, Glucose 104 H, Hemoglobin A1c 5.6, Calcium 8.5, Magnesium 1.5 L, Total Bilirubin 0.8, AST 59 H, ALT 15, Alkaline Phosphatase 35 L, Troponin I < 0.01, Total Protein 6.5, Albumin 3.8, Globulin 2.7, Albumin/Globulin Ratio 1.4 11/07/23 22:15: Troponin I < 0.01 11/07/23 22:31: POC Glucose 97 11/08/23 00:02: POC Glucose 83 11/08/23 01:20: Troponin I < 0.01 11/08/23 01:59: POC Glucose 98 11/08/23 04:10: Urine Color Yellow, Urine Appearance Clear, Urine pH 6.0, Ur Specific [place] >= 1.030, Urine Protein Negative, Urine Glucose (UA) Negative, Urine Ketones Negative, Urine Blood Negative, Urine Nitrate Negative, Urine Bilirubin Negative, Urine Urobilinogen 0.2, Ur Leukocyte Esterase 1+ A, Urine WBC 5-10, Ur Squamous Epith Cells Occasional, Urine Bacteria 4+ 11/08/23 05:10: POC Glucose 53 L 11/08/23 05:59: POC Glucose 137 H 11/08/23 06:25: Sodium 141, Potassium 4.3, Chloride 107, Carbon Dioxide 20 L, Anion Gap 18.3 H, BUN 17, Creatinine 0.70, Estimated Creat Clear 49, Estimated GFR 84, Est GFR ( Amer) 102, Glucose 160 H D, Calcium 9.1 11/08/23 07:44: POC Glucose 150 H I & O for Last 24 hours: Intake & Output 11/05/23 11/06/23 11/07/23 11/08/23 11:59 11:59 11:59 11:59 Intake Total 240 / 240 Output Total 0 / 0 Balance 240 / 240 Weight 241 lb 3.2 oz Constitutional Constitutional: no acute distress *Routine HEENT Exam Head: Present normocephalic and atraumatic Eye: Present EOMI and PERRL ENT: Present mucous membranes moist *Routine Neck Exam Neck: Present supple and full ROM *Routine Respiratory Exam Respiratory: Present CTA bilaterally *Routine Cardiovascular Exam Cardiovascular: Present RRR *Routine Abdominal Exam Abdominal: Present soft and normoactive bowel sounds; Absent tenderness *Routine Rectal Exam Rectal:: deferred *Routine Genitalia Exam Genitalia:: deferred *Routine Extremities Exam Extremities: Absent cyanosis, clubbing or edema *Routine Skin Exam Skin: Present intact; Absent erythema *Routine Neurological Exam Neurological: Present alert, oriented X3 and tremors Assessment and Plan *Assessment and plan (1) Hypoglycemia associated with type 2 diabetes mellitus: Status: Acute Category: Medical Code(s): E11.649 - Type 2 diabetes mellitus with hypoglycemia without coma (2) Hypomagnesemia: Status: Acute Category: Medical Code(s): E83.42 - Hypomagnesemia (3) SNHL (sensorineural hearing loss): Status: Acute Qualifiers: Contralateral hearing status: restricted hearing on contralateral side Laterality: right Qualified Code(s): H90.A21 - Sensorineural hearing loss, unilateral, right ear, with restricted hearing on the contralateral side Category: Medical Code(s): H90.5 - Unspecified sensorineural hearing loss (4) Hypertension: Status: Chronic Category: Medical Code(s): I10 - Essential (primary) hypertension (5) Hyperlipidemia: Status: Chronic Category: Medical Code(s): E78.5 - Hyperlipidemia, unspecified (6) Depressive disorder: Status: Acute Category: Medical Code(s): F32.9 - Major depressive disorder, single episode, unspecified (7) Long-term insulin use: Status: Acute Category: Medical Code(s): Z79.4 - care home (current) use of insulin (8) Urinary tract infection: Status: Acute Category: Medical Code(s): N39.0 - Urinary tract infection, site not specified Plan Patient's glucose has improved morning. She will need adjustments to her insulin regimen to prevent hypoglycemia. She was given magnesium in the ER. Will discuss with Dr. Jones. Dr. Jones entry - Saw patient, agree with above note. She appears to have a UTI, will start Rocephin now.
[2023-11-08] MEDS: LISINOPRIL 20MG TABLET 20 MG PO (09:41)
[2023-11-08] MEDS: GABAPENTIN 300MG CAPSULE 300 MG PO ×2 (09:41→12:10)
[2023-11-08] MEDS: METOPROLOL SUCCINATE XL 50MG TABLET 50 MG PO (09:42)
[2023-11-08] MEDS: CEFTRIAXONE 1 GM 1 GM in 0.9 % SODIUM CHLORIDE 50 ML IV (09:42)
[2023-11-08] MEDS: DULOXETINE 30MG CAPSULE.DR 90 MG PO (09:42)
[2023-11-08] MEDS: FLUOXETINE 20MG CAPSULE 40 MG PO (09:42)
[2023-11-08] MEDS: CARBIDOPA/LEVODOPA 25/100MG TABLET 3 EACH PO ×2 (09:42→12:10)
[2023-11-08 09:57] LABS: POC Glucose,Bedside 188 (70-110)
[2023-11-08 11:31] LABS: POC Glucose,Bedside 172 (70-110)
[2023-11-08] MEDS: humaLOG 100 UNITS/ML 3ML VIAL (SSI) SQ ×2 (11:33→15:58)
[2023-11-08 13:18] LABS: POC Glucose,Bedside 173 (70-110)
[2023-11-08 15:53] LABS: POC Glucose,Bedside 188 (70-110)
[2023-11-08 16:00] VITALS: BP 158/83; PULSE 84; RESP 16; TEMP 36.6; O2SAT 93
--- NOTE | 2023-11-09 15:28 | CARE MANAGER ---
Contacted patient related to hospital discharge. She states she is doing well. She has made her follow up appointment and has her new medication. She denies questions or concerns. ANTHONY Smith
--- NOTE | 2023-11-13 22:43 | EXP.DC.SUM ---
General Admission date:: 11/07/23 Discharge date: 11/08/23 HPI HPI HPI: Patient presents for evaluation of low blood sugar. Patient states that she started feeling bad today and checked her blood sugar and it was in the 50s. She tried to eat something and go to sikh however she continued to feel bad and EMS was called. When they arrived her blood sugar was in the 50s. They administered D50 and patient was hypoglycemic by the time she arrived here. Patient reports that she has a is a type 2 insulin-dependent diabetic on both prandial and long-acting insulin as well as a GLP-1. Patient denies chest pain shortness of breath fever chills hemoptysis, hematochezia, melena, nausea, vomiting, diarrhea but does report significant diaphoresis. (above as per ER physician) The patient was given a D5 infusion in the ER and upon repeat evaluation, her blood sugars were still low. She was admitted for further evaluation and treatment. Hospital Course Hospital Course Hospital Course: The patient was given magnesium in the emergency room. She also appeared to have a UTI and Rocephin was started. She did well throughout the day on 11/08/2023 and her blood sugars were normal to high with no lows. She was stable to be discharged home on oral antibiotics and a lower dose of insulin. She will follow-up in the office [facility]. Of note, her urine came back positive for Klebsiella pneumoniae, which was resistant to most cephalosporins other than cefepime. Exam Data for Last 24 hours Vital signs and Labs for Last 24 Hours: Temp Pulse Resp BP Pulse Ox O2 Del Method 97.9 F 84 16 158/83 H 93 L Room Air 11/08/23 16:11/08/23 16:11/08/23 16:11/08/23 16:11/08/23 16:11/08/23 16:48 Narrative: Constitutional Constitutional: no acute distress *Routine HEENT Exam Head: Present normocephalic and atraumatic Eye: Present EOMI and PERRL ENT: Present mucous membranes moist *Routine Neck Exam Neck: Present supple and full ROM *Routine Respiratory Exam Respiratory: Present CTA bilaterally *Routine Cardiovascular Exam Cardiovascular: Present RRR *Routine Abdominal Exam Abdominal: Present soft and normoactive bowel sounds; Absent tenderness *Routine Rectal Exam Rectal:: deferred *Routine Genitalia Exam Genitalia:: deferred *Routine Extremities Exam Extremities: Absent cyanosis, clubbing or edema *Routine Skin Exam Skin: Present intact; Absent erythema *Routine Neurological Exam Neurological: Present alert, oriented X3 and tremors DS: Diagnosis Discharge Diagnosis (1) Hypoglycemia associated with type 2 diabetes mellitus: Status: Acute Code(s): E11.649 - Type 2 diabetes mellitus with hypoglycemia without coma (2) Hypomagnesemia: Status: Acute Code(s): E83.42 - Hypomagnesemia (3) SNHL (sensorineural hearing loss): Status: Acute Code(s): H90.5 - Unspecified sensorineural hearing loss Qualifiers: Laterality: right Contralateral hearing status: restricted hearing on contralateral side Qualified Code(s): H90.A21 - Sensorineural hearing loss, unilateral, right ear, with restricted hearing on the contralateral side (4) Hypertension: Status: Chronic Code(s): I10 - Essential (primary) hypertension (5) Hyperlipidemia: Status: Chronic Code(s): E78.5 - Hyperlipidemia, unspecified (6) Depressive disorder: Status: Acute Code(s): F32.9 - Major depressive disorder, single episode, unspecified (7) Long-term insulin use: Status: Acute Code(s): Z79.4 - nursing home (current) use of insulin (8) Urinary tract infection: Status: Acute Code(s): N39.0 - Urinary tract infection, site not specified Meds Home Medications and Allergies Home Medications Medication Instructions Recorded Confirmed Type ascorbic acid (vitamin C) 1,000 mg 1,000 mg PO DAILY Supplement 07/05/17 11/07/23 History chewable tablet atorvastatin 20 mg tablet 20 mg PO HS High cholesterol 07/05/17 11/07/23 History gabapentin 300 mg capsule 300 mg PO TID 07/05/17 11/07/23 History meloxicam 7.5 mg tablet 7.5 mg PO DAILY 07/05/17 11/07/23 History metformin 500 mg tablet 1,000 mg PO BID Diabetes 07/05/17 11/07/23 History multivitamin 1 each PO DAILY Supplement 07/05/17 11/07/23 History L.acidoph, paracasei,B. lactis 10 1 each PO DAILY Supplement 10/09/18 11/07/23 History billion cell capsule biotin 5 mg capsule 6 mg PO BID Supplement 10/09/18 11/07/23 History calcium carbonate 600 mg-vitamin 1 each PO BID Supplement 10/09/18 11/07/23 History D3 20 mcg (800 unit) tablet cinnamon bark-chromium picolinate 2 cap PO BID Supplement 10/09/18 11/07/23 History 500 mg-100 mcg capsule coenzyme Q10 100 mg capsule 100 mg PO DAILY Supplement 10/09/18 11/07/23 History drrefaqnany-iiyzuuyxy-que C-Mn 750 2 each PO BID Supplement 10/09/18 11/07/23 History mg-600 mg-55 mg-5 mg tablet krill rhl-jjhxm-5-dha-epa 300 1 each PO DAILY Supplement 10/09/18 11/07/23 History mg-90 mg (27 mg-45 mg) capsule aspirin 81 mg tablet,delayed 81 mg PO DAILY 05/09/19 11/07/23 History release (Jacki Low Dose Aspirin) fenofibrate nanocrystallized 145 145 mg PO DAILY 10/30/19 11/07/23 History mg tablet lisinopril 20 mg tablet 20 mg PO DAILY Hypertension 10/30/19 11/08/23 History semaglutide 7 mg tablet (Rybelsus) 7 mg PO DAILY Diabetes 07/05/21 11/07/23 History metoprolol succinate 50 mg 50 mg PO DAILY 07/05/22 11/07/23 History tablet,extended release 24 hr insulin aspart U-100 100 unit/mL 0 unit SQ DIRECTED Diabetes 02/01/23 11/08/23 History (3 mL) subcutaneous pen pen needle, diabetic 31 gauge x #1,200 ea 05/24/23 11/07/23 History / (BD Ultra-Fine Mini Pen Needle) carbidopa 25 mg-levodopa 100 mg 3 tab PO TID Tremor 90 days #810 09/05/23 11/07/23 Rx tablet tabs brexpiprazole 1 mg tablet (Rexulti) 1 mg PO DAILY Depression #90 tabs 10/09/23 11/07/23 Rx duloxetine 60 mg capsule,delayed 60 mg PO DAILY #90 caps 10/09/23 11/07/23 Rx release azelastine 137 mcg (0.1 %) nasal 2 spray intranasal BID #30 mL 10/31/23 11/07/23 Rx spray aerosol semaglutide 7 mg tablet (Rybelsus) 7 mg PO DAILY 11/07/23 11/07/23 History cefuroxime axetil 500 mg tablet 500 mg PO Q12H #14 tabs 11/08/23 Rx duloxetine 30 mg capsule,delayed 30 mg PO DAILY 11/08/23 11/08/23 History release fluoxetine 40 mg capsule 40 mg PO DAILY 11/08/23 11/08/23 History insulin glargine 100 unit/mL 50 unit (0.5 mL) SQ BID Diabetes 11/08/23 11/07/23 Rx subcutaneous solution #1 mL levocetirizine 5 mg tablet 5 mg PO DAILY 11/08/23 11/08/23 History New Prescriptions to Start Prescriptions: cefuroxime axetil Ricky Jones Allergies Allergy/AdvReac Type Severity Reaction Status Date / Time No Known Allergies Allergy Verified 10/09/23 11:06 Discharge Plan Disposition Patient Disposition: Home, Self-Care Condition: Fair Follow up Plan Follow up with: Ricky Jones MD [Primary Care Provider] - 2 weeks (please call for appointment) Prescriptions/Medication Reconciliation: New cefuroxime axetil 500 mg tablet 500 mg PO Q12H Qty: 14 0RF Continued aspirin [Jacki Low Dose Aspirin] 81 mg tablet,delayed release (DR/EC) 81 mg PO DAILY (DME) pen needle, diabetic [BD Ultra-Fine Mini Pen Needle] 31 gauge x 3/16 needle See Rx Instructions .ROUTE .MEDSUPPLY Qty: 1200 Rx Instructions: As directed carbidopa-levodopa 25-100 mg tablet 3 tab PO TID 90 Days Qty: 810 1RF Rx Instructions: Take 3 tablets by mouth 3 times daily for tremor fenofibrate nanocrystallized 145 mg tablet 145 mg PO DAILY Rybelsus 7 mg tablet 7 mg PO DAILY Rexulti 1 mg tablet 1 mg PO DAILY Qty: 90 1RF duloxetine 60 mg capsule,delayed release(DR/EC) 60 mg PO DAILY Qty: 90 1RF Rx Instructions: TAKE 1 CAPSULE DAILY WITH 30 MG CAPSULE FOR DEPRESSION. DOSAGE IS 90 MG TOTAL DAILY. VERIFIED WITH PHYSICIAN OFFICE, FLUOXETINE AND DULOXETINE ARE BOTH PRESCRIBED azelastine 137 mcg (0.1 %) aerosol,spray 2 spray intranasal BID Qty: 30 3RF Rx Instructions: administer into each nostril biotin 5 MG capsule 6 mg PO BID qzqpybtjjau-zucdlueid-spf C-Mn 1 EACH tablet 2 each PO BID coenzyme Q10 100 MG capsule 100 mg PO DAILY krill mts-gdafa-0-dha-epa 1 EACH capsule 1 each PO DAILY cinnamon bark-chromium picolin 1 EACH capsule 2 cap PO BID calcium carbonate-vitamin D3 1 EACH tablet 1 each PO BID L.acidoph, paracasei,B. lactis 1 EACH capsule 1 each PO DAILY gabapentin 300 MG capsule 300 mg PO TID metformin 500 MG tablet 1,000 mg PO BID atorvastatin 20 MG tablet 20 mg PO HS meloxicam 7.5 MG tablet 7.5 mg PO DAILY ascorbic acid (vitamin C) 1,000 MG tablet,chewable 1,000 mg PO DAILY multivitamin 1 EACH capsule 1 each PO DAILY lisinopril 20 mg tablet 20 mg PO DAILY metoprolol succinate 50 mg tablet extended release 24 hr 50 mg PO DAILY insulin aspart U-100 100 unit/mL (3 mL) insulin pen 0 unit SQ DIRECTED Rx Instructions: 40 UNITS BREAKFAST/30 UNITS LUNCH/40 UNITS DINNER SQ as directed; Rybelsus 7 mg tablet 7 mg PO DAILY fluoxetine 40 mg capsule 40 mg PO DAILY Rx Instructions: VERIFIED WITH PHYSICIAN OFFICE, FLUOXETINE AND DULOXETINE ARE BOTH PRESCRIBED duloxetine 30 mg capsule,delayed release(DR/EC) 30 mg PO DAILY Rx Instructions: TAKE 1 CAPSULE DAILY WITH 60 MG CAPSULE FOR DEPRESSION. DOSAGE IS 90 MG TOTAL DAILY. VERIFIED WITH PHYSICIAN OFFICE, FLUOXETINE AND DULOXETINE ARE BOTH PRESCRIBED levocetirizine 5 mg tablet 5 mg PO DAILY Changed insulin glargine 100 unit/mL solution 50 unit SQ BID Qty: 1 0RF Problem Reconciliation Problems Reviewed?: Yes Patient Discharge Instructions ACTIVITY: Continue current activity DIET: continue same diet Patient Instructions: DI for Hypoglycemia Providers Primary Care Provider: Ricky Jones Admit Provider: Mohinder Matute Attending Provider: Ricky Jones
== END 2023-11-08 18:12 | disposition home or self-care (01) ==
LOC: ER 21:34 → 2ND 22:55
PROVIDERS: Physician Assistant; Admitting Provider Internal Medicine Adolescent Medicine; Emergency Provider Emergency Medicine; PCP Family Medicine; Visit Provider Family Medicine
DX: E11.649 Type 2 diabetes mellitus with hypoglycemia without coma (principal); E83.42 Hypomagnesemia; H90.A21 Sensorineural hearing loss, unilateral, right ear, with restricted hearing on the contralateral side; I10 Essential (primary) hypertension; E78.5 Hyperlipidemia, unspecified; F32.9 Major depressive disorder, single episode, unspecified; Z79.4 Long term (current) use of insulin; N39.0 Urinary tract infection, site not specified; Z85.3 Personal history of malignant neoplasm of breast
CPT/HCPCS: 36415; 80048; 80053; 81001; 82962; 83036; 83735; 84484; 85025; 87086; 87088; 87186; 99285; G0378; J0696; J3475

== ENCOUNTER 2024-05-12 22:04 | Inpatient (IN) | payer MEDICARE, OTHER, SELFPAY ==
[2024-05-12 22:24] VITALS: BP 103/66; PULSE 99; RESP 16; TEMP 37.7; O2SAT 92; BMI 40.3
[2024-05-12 22:30] VITALS: BP 130/64; PULSE 98; O2SAT 91
--- NOTE | 2024-05-12 22:31 | PC.NURSE ---
Pt arrives from home via EMS Pt has parkinson's and falls frequently but has fallen and needed EMS assistance x3 times today to get up. Pt states she leans over and then falls forward. has an abraision to upper lip. Skin pink warm and dry REsp full and easy, speech clear and appropriate at bedside. Pt denies other complaints
--- NOTE | 2024-05-12 22:41 | XR_ITS ---
PROCEDURE INFORMATION: Exam: XR Chest Exam date and time: 05/13/2024 12:30 AM Age: 64 years old Clinical indication: Fever; Additional info: Fever, frequent falls TECHNIQUE: Imaging protocol: Radiologic exam of the chest. Views: 1 view. COMPARISON: CR CXR2V XR chest 2V 10/17/2018 11:08 AM FINDINGS: Lungs: No consolidation. Pleural spaces: No pleural effusion. No pneumothorax. Heart/Mediastinum: No cardiomegaly. Calcified atherosclerotic changes of the thoracic aorta. Diaphragm: Right diaphragmatic elevation. Bones/joints: Unremarkable. IMPRESSION: No acute pulmonary findings.
--- NOTE | 2024-05-12 22:41 | XR_ITS ---
PROCEDURE INFORMATION: Exam: XR Right Humerus Exam date and time: 05/13/2024 12:30 AM Age: 64 years old Clinical indication: Injury or trauma; Fall; Blunt trauma (contusions or hematomas); Arm, upper; Right; Additional info: Fall, pain TECHNIQUE: Imaging protocol: Radiologic exam of the right humerus. Views: 2 or more views. COMPARISON: CR XR SHOULDER RT MIN 2V 05/13/2024 12:30 AM FINDINGS: Bones/joints: No acute fracture or malalignment. Soft tissues: Unremarkable. IMPRESSION: No acute osseous findings.
--- NOTE | 2024-05-12 22:41 | CT_ITS ---
PROCEDURE INFORMATION: Exam: CT Head Without Contrast Exam date and time: 05/13/2024 12:54 AM Age: 64 years old Clinical indication: Injury or trauma; Fall; Other: Pain; Additional info: Frequent falls TECHNIQUE: Imaging protocol: Computed tomography of the head without contrast. Radiation optimization: All CT scans at this facility use at least one of these dose optimization techniques: automated exposure control; mA and/or kV adjustment per patient size (includes targeted exams where dose is matched to clinical indication); or iterative reconstruction. COMPARISON: No relevant prior studies available. FINDINGS: Brain: No acute intracranial hemorrhage, midline shift or mass effect. Mild hypodensities within the cerebral white matter most consistent with chronic small-vessel ischemic changes. Cerebral ventricles: No ventriculomegaly. Pituitary gland and sella: Partial empty sella. Paranasal sinuses: Visualized sinuses are unremarkable. No fluid levels. Mastoid air cells: Visualized mastoid air cells are well aerated. Bones: Unremarkable. No acute fracture. Soft tissues: Right parietal scalp contusion. IMPRESSION: 1. No acute intracranial findings. 2. Right parietal scalp contusion. No calvarial fracture.
--- NOTE | 2024-05-12 22:41 | XR_ITS ---
PROCEDURE INFORMATION: Exam: XR Right Shoulder Exam date and time: 05/13/2024 12:30 AM Age: 64 years old Clinical indication: Injury or trauma; Fall; Blunt trauma (contusions or hematomas); Shoulder; Right; Additional info: Fall, pain TECHNIQUE: Imaging protocol: Radiologic exam of the right shoulder. Views: 2 or more views. COMPARISON: CR XR HUMERUS RT 05/13/2024 12:30 AM FINDINGS: Bones/joints: No acute fracture or malalignment. Acromioclavicular and glenohumeral joint degenerative changes. Soft tissues: Unremarkable. IMPRESSION: No acute osseous findings.
--- NOTE | 2024-05-12 22:41 | XR_ITS ---
PROCEDURE INFORMATION: Exam: XR Right Elbow Exam date and time: 05/13/2024 12:30 AM Age: 64 years old Clinical indication: Injury or trauma; Fall; Blunt trauma (contusions or hematomas); Elbow; Right; Additional info: Fall, pain TECHNIQUE: Imaging protocol: Radiologic exam of the right elbow. Views: 3 or more views. COMPARISON: CR XR HUMERUS RT 05/13/2024 12:30 AM FINDINGS: Bones/joints: No acute fracture or malalignment. Small ossific densities adjacent to the medial and lateral epicondyles likely related to epicondylitis. Soft tissues: Unremarkable. IMPRESSION: No acute osseous findings.
--- NOTE | 2024-05-12 22:41 | XR_ITS ---
PROCEDURE INFORMATION: Exam: XR Pelvis Exam date and time: 05/13/2024 12:30 AM Age: 64 years old Clinical indication: Injury or trauma; Fall; Blunt trauma (contusions or hematomas); Bilateral; Hip; Additional info: Fall, pain TECHNIQUE: Imaging protocol: Radiologic exam of the pelvis. Views: 1 or 2 view. COMPARISON: No relevant prior studies available. FINDINGS: Bones/joints: No acute fracture or malalignment. Lower lumbar spondylosis. Soft tissues: Unremarkable. IMPRESSION: No acute findings.
--- NOTE | 2024-05-12 22:41 | CT_ITS ---
PROCEDURE INFORMATION: Exam: CT Cervical Spine Without Contrast Exam date and time: 05/13/2024 12:57 AM Age: 64 years old Clinical indication: Injury or trauma; Fall; Other: Pain; Additional info: Frequent falls TECHNIQUE: Imaging protocol: Computed tomography of the cervical spine without contrast. Radiation optimization: All CT scans at this facility use at least one of these dose optimization techniques: automated exposure control; mA and/or kV adjustment per patient size (includes targeted exams where dose is matched to clinical indication); or iterative reconstruction. COMPARISON: CT HEAD/BRAIN WO CON 05/13/2024 12:54 AM FINDINGS: Bones: Cervical vertebrae normal in height. No acute fracture. Mild levoconvex curvature. Maintained craniocervical junction. Multilevel degenerative changes. No severe neural foraminal narrowing or spinal canal stenosis. Lungs: Lung apices are normal. Soft tissues: Unremarkable. IMPRESSION: No acute osseous findings.
[2024-05-12 22:51] LABS: Basophils # 0.1 K/mm3 (0-0.2); Basophils % 0.4 % (0.1-2.0); Eosinophils # 0.1 K/mm3 (0.0-0.4); Eosinophils % 1.1 % (0.1-12.0); Hematocrit 40.1 % (37.0-47.0); Hemoglobin 13.5 g/dL (12.2-16.2); Lymphocytes % 8.7 % (10-50); Mean Corpuscular HGB Conc 33.8 g/dL (31.8-35.4); Mean Corpuscular Hemoglobin 29.6 pg (27.0-31.2); Mean Corpuscular Volume 87.7 fl (81-99); Mean Platelet Volume 10.5 fl (7.4-10.4); Monocytes # 0.7 K/mm3 (0.1-1.0); Monocytes % 5.8 % (1.7-9.3); Neutrophils # 10.1 K/mm3 (1.8-7.8); Platelet Count 122 K/mm3 (142-424); Red Blood Count 4.57 M/mm3 (4.20-5.40); Red Cell Distribution Width 14.2 % (11.5-17.5)
[2024-05-12 22:53] LABS: Chloride 103 mmol/L (98-107); Potassium 4.1 mmoL/L (3.5-5.1); Sodium 135 mmol/L (136-145)
[2024-05-12 22:56] LABS: Alanine Aminotransferase 31 U/L (12-78); Albumin/Globulin Ratio 1.3 (1.1-1.8); Alkaline Phosphatase 54 U/L (38-126); Anion Gap 15.1 mEq/L (5-15); Aspartate Amino Transferase 28 U/L (14-36); Bilirubin,Total 0.8 mg/dl (0.2-1.3); Calcium 9.6 mg/dl (8.4-10.2); Carbon Dioxide 21 mmol/L (22.0-30.0); Creatine Kinase 111 U/L (30-135); Glucose 301 mg/dl (74-100); Magnesium 1.3 mg/dl (1.6-2.3); Phosphorous 2.6 mg/dl (2.5-4.5)
[2024-05-12 22:58] LABS: Activated Partial Thrombo Time 25.4 seconds (22.8-30.6); INR 1.12 (0.9-1.1); Prothrombin Time 12.4 seconds (10.1-12.5)
[2024-05-12 23:01] VITALS: BP 139/58; PULSE 99; O2SAT 92
--- NOTE | 2024-05-12 23:01 | HMH.EDGENADL ---
Discharge Plan Disposition Patient Disposition: Admitted Clinical Impressions Clinical Impression: Urinary tract infection, Fall Discharge ED Provider: Patricia Oviedo General Adult HPI <Patricia Oviedo DO - Last Filed: 05/12/24 23:57> General Chief complaint: Fall Stated complaint: FALL Time Seen by Provider: 05/12/24 22:31 Mode of Arrival: EMS Source of Information: Patient Limitations: No Limitations Description of Symptoms (Recalled from ER Triage Doc. by RN): Pt has fallen 3 times today EMS required her to go to the ED History of Present Illness HPI narrative: This patient is a 64-year-old female with a history of Parkinson's disease, type 2 diabetes, hypertension, hyperlipidemia, major depression, obesity presented to the emergency department with EMS for evaluation with concern for frequent falls. Patient falls a lot at baseline, as she has difficulty standing up secondary to her Parkinson's disease. She leans forward and has a shuffling gait, using a rollater to get around, so her significant other notes that she falls all the time. Today, she had fallen 3 times in the last hour and had significant difficulty getting back up, requiring EMS to be called to the scene to help her. After the third call, EMS required that the patient come to the ED to be evaluated. She states her right arm is hurting a little bit from where she fell on it, but she did otherwise denies any concerns or complaints. She states nothing is been out of the ordinary as of late. No recent illnesses, such as fevers, chills, sore throat, cough, congestion, abdominal pain, nausea, vomiting, urinary symptoms, changes in bowel habits, or other concerns. She denies any significant head injury with any of the falls and also denies any new neurologic deficits. Related Data Home Medications ?Medication ?Instructions ?Recorded ?Confirmed atorvastatin 20 mg tablet 20 mg PO HS High cholesterol 07/05/17 04/15/24 gabapentin 300 mg capsule 300 mg PO TID 07/05/17 04/15/24 meloxicam 7.5 mg tablet 7.5 mg PO DAILY 07/05/17 04/15/24 metformin 500 mg tablet 1,000 mg PO BID Diabetes 07/05/17 04/15/24 multivitamin 1 each PO DAILY Supplement 07/05/17 04/15/24 thania Mandel B. lactis 10 1 each PO DAILY Supplement 10/09/18 04/15/24 billion cell capsule biotin 5 mg capsule 6 mg PO BID Supplement 10/09/18 04/15/24 calcium 600 mg (as 1 each PO BID Supplement 10/09/18 04/15/24 carbonate)-vitamin D3 20 mcg (800 unit) tablet cinnamon bark-chromium picolinate 2 cap PO BID Supplement 10/09/18 04/15/24 500 mg-100 mcg capsule coenzyme Q10 100 mg capsule 100 mg PO DAILY Supplement 10/09/18 04/15/24 krill ean-[id number]-3-dha-epa 300 1 each PO DAILY Supplement 10/09/18 04/15/24 mg-90 mg (27 mg-45 mg) capsule aspirin 81 mg tablet,delayed 81 mg PO DAILY 05/09/19 04/15/24 release (Jacki Low Dose Aspirin) fenofibrate nanocrystallized 145 145 mg PO DAILY 10/30/19 04/15/24 mg tablet lisinopril 20 mg tablet 20 mg PO DAILY Hypertension 10/30/19 04/15/24 metoprolol succinate 50 mg 50 mg PO DAILY 07/05/22 04/15/24 tablet,extended release 24 hr pen needle, diabetic 31 gauge x #1,200 ea 05/24/23 04/15/2409/15 (BD Ultra-Fine Mini Pen Needle) semaglutide 7 mg tablet (Rybelsus) 7 mg PO DAILY 11/07/23 04/15/24 duloxetine 30 mg capsule,delayed 30 mg PO DAILY 11/08/23 04/15/24 release fluoxetine 40 mg capsule 40 mg PO DAILY 11/08/23 04/15/24 insulin aspart U-100 100 unit/mL 32 unit SQ DIRECTED Diabetes 02/22/24 04/15/24 (3 mL) subcutaneous pen ascorbic acid (vitamin C) 1,000 mg 500 mg PO DAILY Supplement 03/06/24 04/15/24 chewable tablet Previous Rx's ?Medication ?Instructions ?Recorded duloxetine 60 mg capsule,delayed 60 mg PO DAILY #90 caps 10/09/23 release insulin glargine 100 unit/mL 50 unit (0.5 mL) SQ BID Diabetes 11/08/23 subcutaneous solution #1 mL carbidopa ER 50 mg-levodopa 200 mg 1 tab PO QID Parkinsonian syndrome 03/06/24 tablet,extended release #120 tabs brexpiprazole 2 mg tablet (Rexulti) 2 mg PO DAILY #30 tabs 04/15/24 Allergies Allergy/AdvReac Type Severity Reaction Status Date / Time No Known Allergies Allergy Verified 04/15/24 11:23 PFS <Patricia Oviedo DO - Last Filed: 05/12/24 23:57> PFS Disclaimer: The information contained in this section may have been updated after the patient was seen, as this information can be updated by other users. 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 Surgical History History of tonsillectomy and adenoidectomy History of skin graft History of lumpectomy of left breast History of cholecystectomy History of lumpectomy of left breast History of carpal tunnel surgery of left wrist Hx of cholecystectomy Family History Other Cancer Coronary artery disease Diabetes Hyperlipidemia Hypertension Stroke Social History Smoking Status: Never smoker alcohol intake: never substance use type: denies use current occupational status: disabled Travel in the last 8 weeks: None household members: spouse housing: house number of children: 0 current occupational exposures/hazards: No caffeine: Yes Other Medical History Have you received the Flu Vaccine for this season: No Have you received the Pneumonia Vaccine: Yes <Patricia Oviedo DO - Last Filed: 05/12/24 23:57> ROS Obtained: Yes All systems reviewed & no additional complaints except as documented Physical Exam <Patricia Oviedo DO - Last Filed: 05/12/24 23:57> General General appearance: alert, in no apparent distress and obese Comment: Baseline tremor, sluggishly responsive Head Head exam: normocephalic Expanded Head Exam Head image: 1. superficial abrasion Eye Eye exam: Present normal appearance, PERRL and EOMI ENT ENT exam: Present normal exam, normal oropharynx, mucous membranes moist and normal external ear exam Neck Neck exam: Present normal inspection, full ROM and trachea midline; Absent tenderness Chest Chest inspection: Present normal inspection and symmetric chest wall rise; Absent tenderness Respiratory Respiratory exam: Present normal lung sounds bilaterally; Absent respiratory distress, wheezes, stridor or accessory muscle use Cardiovascular Cardiovascular exam: Present normal rhythm and tachycardia Abdominal Exam Abdominal exam: Present soft; Absent distention, tenderness or guarding Extremities Exam Extremities exam: Present tenderness (R shoulder TTP), normal capillary refill and other (Tender to palpation of the right shoulder., Soft. Neurovascularly intact distally.); Absent edema Back Exam Back exam: Present normal inspection and full ROM; Absent tenderness Neurological Exam Neurological exam: Present alert, oriented X3, CN II-XII intact and other (Generally weak without focal deficits. Baseline tremor. Sluggish responses); Absent motor sensory deficit Psychiatric Psychiatric exam: Present flat affect Skin Skin exam: Present warm and dry Medical Decision Making <Patricia Oviedo DO - Last Filed: 05/12/24 23:57> Medical Records Medical records reviewed: Yes I reviewed the patient's medical records. Screening: Per USPSTF and CDC recommendations, given the prevalence of disease in our region, it is our hospital?s policy to screen for HIV and viral Hepatitis for all patients aged 18 and over and those with ongoing risk factors. Gunner Inquiry Pt receiving controlled substance: No Vital Signs: 05/12/24 22:24 05/12/24 22:30 05/12/24 23:01 Temperature 99.9 F H Temperature Source Oral Pulse Rate 98 H 99 H Pulse Rate [Right Brachial] 99 H Respiratory Rate 16 Blood Pressure 130/64 139/58 L Blood Pressure [Right Arm] 103/66 L Blood Pressure Mean [Right Arm] 78 Blood Pressure Source [Right Arm] Automatic Cuff Blood Pressure Position [Right Arm] Supine 02 Sat by Pulse Oximetry 92 L 91 L 92 L Oxygen Delivery Method Room Air 05/12/24 23:31 Temperature Temperature Source Pulse Rate 102 H Pulse Rate [Right Brachial] Respiratory Rate Blood Pressure 141/64 H Blood Pressure [Right Arm] Blood Pressure Mean [Right Arm] Blood Pressure Source [Right Arm] Blood Pressure Position [Right Arm] 02 Sat by Pulse Oximetry 92 L Oxygen Delivery Method Lab Data Lab results reviewed: Yes I reviewed the patient's lab results. Lab Results 05/12/24 22:00: HIV 1&2 Antibody Rapid Nonreactive 05/12/24 22:20: WBC 12.0 H, RBC 4.57, Hgb 13.5, Hct 40.1, MCV 87.7, MCH 29.6, MCHC 33.8, RDW 14.2, Plt Count 122 L, MPV 10.5 H, Neut % (Auto) 84.0 H, Lymph % (Auto) 8.7 L, [place] % (Auto) 5.8, Eos % (Auto) 1.1, Baso % (Auto) 0.4, Neut # (Auto) 10.1 H, Lymph # (Auto) 1.0, [place] # (Auto) 0.7, Eos # (Auto) 0.1, Baso # (Auto) 0.1, PT 12.4, INR 1.12 H, APTT 25.4, Sodium 135 L, Potassium 4.1, Chloride 103, Carbon Dioxide 21 L, Anion Gap 15.1 H, BUN 27 H, Creatinine 0.80, Estimated Creat Clear 100, Estimated GFR 72, Est GFR ( Amer) 87, Glucose 301 H, Calcium 9.6, Phosphorus 2.6, Magnesium 1.3 L, Total Bilirubin 0.8, AST 28, ALT 31, Alkaline Phosphatase 54, Total Creatine Kinase 111, C-Reactive Protein 128.1 H, Total Protein 7.0, Albumin 4.0, Globulin 3.0, Albumin/Globulin Ratio 1.3, Procalcitonin 0.100, TSH 3.18, Thyroxine (T4) 5.8 05/13/24 00:05: Urine Color Dark yellow, Urine Appearance Slightly cloudy, Urine pH 6.0, Ur Specific [place] >= 1.030, Urine Protein 1+ A, Urine Glucose (UA) 1+, Urine Ketones Trace, Urine Blood Negative, Urine Nitrate Positive, Urine Bilirubin Negative, Urine Urobilinogen 1.0, Ur Leukocyte Esterase Negative, Urine RBC None, Urine WBC 5-10, Ur Squamous Epith Cells 3-5, Urine Bacteria 1+ 05/13/24 00:14: Lactate 1.1 05/12/24 22:20 05/12/24 22:20 Orders (Tests/Meds): ED MEDICATIONS Discontinued Medications Generic Name Dose Route Start Last Admin Trade Name Freq PRN Reason Stop Dose Admin Acetaminophen 1,000 mg 05/12/24 23:50 05/12/24 23:59 Acetaminophen 500mg Tab PO 05/12/24 23:51 1,000 mg ONCE ONE Administration Magnesium Sulfate 2 gm in 50 mls @ 50 mls/hr 05/12/24 23:01 05/12/24 23:19 Magnesium Sulfate 2gm/50ml Premix IV 05/13/24 00:00 50 mls/hr ONCE ONE Administration Ceftriaxone Sodium 1 gm/ 50 mls @ 100 mls/hr 05/13/24 00:32 05/13/24 00:46 Sodium Chloride IV 05/13/24 01:01 100 mls/hr Q24H ONE Administration ORDERS Category Date Time Status CT cervical spine wo con Stat Cat Scan 05/12/24 22:[address] head/brain wo con Stat Cat Scan 05/12/24 22:41 Completed CXR --portable [XR chest portable] Stat Exams 05/12/24 22:41 Completed Elbow XR right minimum 3 views [XR elbow RT min 3V] Exams 05/12/24 22:41 Completed Stat Humerus XR right [XR humerus RT] Stat Exams 05/12/24 22:41 Completed Pelvis XR 1-2 views [XR pelvis 1-2V] Stat Exams 05/12/24 22:41 Completed Shoulder XR right miminum 2 views [XR shoulder RT min Exams 05/12/24 22:41 Completed 2V] Stat CBC w/Auto Diff [Complete Blood Count Auto Diff] Stat Lab 05/12/24 22:20 Completed CK [Creatine Kinase] Stat Lab 05/12/24 22:20 Completed CMP [Comprehensive Metabolic Panel] Stat Lab 05/12/24 22:20 Completed CRP [C-Reactive Protein] Stat Lab 05/12/24 22:20 Completed HIV (1&2) Antibody Rapid Stat Lab 05/12/24 22:00 Completed Hep C Ab with Reflex to RNA Stat Lab 05/12/24 22:00 Received Lactic Acid Stat Lab 05/12/24 22:45 Completed MAG [Magnesium] Stat Lab 05/12/24 22:20 Completed PHOS [Phosphorous] Stat Lab 05/12/24 22:20 Completed PT INR [Prothrombin Time INR] Stat Lab 05/12/24 22:20 Completed PTT [Activated Partial Thrombo Time] Stat Lab 05/12/24 22:20 Completed Procalcitonin Stat Lab 05/12/24 22:20 Completed T4 (Thyroxine) Stat Lab 05/12/24 22:20 Completed TSH [Thyroid Stimulating Hormone] Stat Lab 05/12/24 22:20 Completed UA [Urinalysis and Microscopic] Stat Lab 05/13/24 00:05 Completed ECG Data Tracing #1: I reviewed this ECG and interpreted as documented below: Sinus tachycardia with a ventricular rate of [address] changes concerning for ischemia. ECG initial impression date: 05/12/24 ECG initial impression time: 23:17 Medical Decision Narrative: In summary, this patient is a 64-year-old presenting to the Emergency Department for evaluation of frequent falls. Differential diagnoses considered include but are not limited to worsening weakness in the setting of Parkinson disease, dehydration, electrolyte derangements, UTI, pneumonia, traumatic injuries from fall. Ruling out the most morbid conditions drove assessment. It should be noted patient's history includes Parkinson's disease, hypertension, hyperlipidemia, diabetes which may or may not be at goal therapy. This complicates all aspects of care by increasing patient's risk for morbidity. I reviewed patient's past medical records and noted previous evaluations by behavioral health, neurology, ENT. On exam, the patient is lying in bed in no acute distress. She is obese. She has superficial abrasion to her lip and tenderness to palpation of her right shoulder. She is neurovascularly intact distally in all 4 extremities. Cardiopulmonary and abdominal exams are benign. Of note, she does have borderline fever with a temp of 99.9 ?F and is slightly tachycardic in the low 100s. She denies any fevers or notable sources of infection. Workup included broad lab evaluation to evaluate for infectious, metabolic causes of frequent falls. I also obtain CT head and C-spine without contrast to evaluate for traumatic injury as well as chest x-ray and pelvic x-ray. Urinalysis was obtained for infectious workup given borderline fever and worsening in general debility and frequent falls. Patient care signed out to the oncoming provider, Dr. Kaur, pending workup and disposition. <Alexis Kaur MD - Last Filed: 05/13/24 02:41> Vital Signs: 05/12/24 22:24 05/12/24 22:30 05/12/24 23:01 Temperature 99.9 F H Temperature Source Oral Pulse Rate 98 H 99 H Pulse Rate [Right Brachial] 99 H Respiratory Rate 16 Blood Pressure 130/64 139/58 L Blood Pressure [Right Arm] 103/66 L Blood Pressure Mean [Right Arm] 78 Blood Pressure Source [Right Arm] Automatic Cuff Blood Pressure Position [Right Arm] Supine 02 Sat by Pulse Oximetry 92 L 91 L 92 L Oxygen Delivery Method Room Air 05/12/24 23:31 Temperature Temperature Source Pulse Rate 102 H Pulse Rate [Right Brachial] Respiratory Rate Blood Pressure 141/64 H Blood Pressure [Right Arm] Blood Pressure Mean [Right Arm] Blood Pressure Source [Right Arm] Blood Pressure Position [Right Arm] 02 Sat by Pulse Oximetry 92 L Oxygen Delivery Method Lab Data Lab Results 05/12/24 22:00: HIV 1&2 Antibody Rapid Nonreactive 05/12/24 22:20: WBC 12.0 H, RBC 4.57, Hgb 13.5, Hct 40.1, MCV 87.7, MCH 29.6, MCHC 33.8, RDW 14.2, Plt Count 122 L, MPV 10.5 H, Neut % (Auto) 84.0 H, Lymph % (Auto) 8.7 L, [place] % (Auto) 5.8, Eos % (Auto) 1.1, Baso % (Auto) 0.4, Neut # (Auto) 10.1 H, Lymph # (Auto) 1.0, [place] # (Auto) 0.7, Eos # (Auto) 0.1, Baso # (Auto) 0.1, PT 12.4, INR 1.12 H, APTT 25.4, Sodium 135 L, Potassium 4.1, Chloride 103, Carbon Dioxide 21 L, Anion Gap 15.1 H, BUN 27 H, Creatinine 0.80, Estimated Creat Clear 100, Estimated GFR 72, Est GFR ( Amer) 87, Glucose 301 H, Calcium 9.6, Phosphorus 2.6, Magnesium 1.3 L, Total Bilirubin 0.8, AST 28, ALT 31, Alkaline Phosphatase 54, Total Creatine Kinase 111, C-Reactive Protein 128.1 H, Total Protein 7.0, Albumin 4.0, Globulin 3.0, Albumin/Globulin Ratio 1.3, Procalcitonin 0.100, TSH 3.18, Thyroxine (T4) 5.8 05/13/24 00:05: Urine Color Dark yellow, Urine Appearance Slightly cloudy, Urine pH 6.0, Ur Specific [place] >= 1.030, Urine Protein 1+ A, Urine Glucose (UA) 1+, Urine Ketones Trace, Urine Blood Negative, Urine Nitrate Positive, Urine Bilirubin Negative, Urine Urobilinogen 1.0, Ur Leukocyte Esterase Negative, Urine RBC None, Urine WBC 5-10, Ur Squamous Epith Cells 3-5, Urine Bacteria 1+ 05/13/24 00:14: Lactate 1.1 Orders (Tests/Meds): ED MEDICATIONS Discontinued Medications Generic Name Dose Route Start Last Admin Trade Name Kaylin PRN Reason Stop Dose Admin Acetaminophen 1,000 mg 05/12/24 23:50 05/12/24 23:59 Acetaminophen 500mg Tab PO 05/12/24 23:51 1,000 mg ONCE ONE Administration Magnesium Sulfate 2 gm in 50 mls @ 50 mls/hr 05/12/24 23:01 05/12/24 23:19 Magnesium Sulfate 2gm/50ml Premix IV 05/13/24 00:00 50 mls/hr ONCE ONE Administration Ceftriaxone Sodium 1 gm/ 50 mls @ 100 mls/hr 05/13/24 00:32 05/13/24 00:46 Sodium Chloride IV 05/13/24 01:01 100 mls/hr Q24H ONE Administration ORDERS Category Date Time Status CT cervical spine wo con Stat Cat Scan 05/12/24 22:[address] head/brain wo con Stat Cat Scan 05/12/24 22:41 Completed CXR --portable [XR chest portable] Stat Exams 05/12/24 22:41 Completed Elbow XR right minimum 3 views [XR elbow RT min 3V] Exams 05/12/24 22:41 Completed Stat Humerus XR right [XR humerus RT] Stat Exams 05/12/24 22:41 Completed Pelvis XR 1-2 views [XR pelvis 1-2V] Stat Exams 05/12/24 22:41 Completed Shoulder XR right miminum 2 views [XR shoulder RT min Exams 05/12/24 22:41 Completed 2V] Stat CBC w/Auto Diff [Complete Blood Count Auto Diff] Stat Lab 05/12/24 22:20 Completed CK [Creatine Kinase] Stat Lab 05/12/24 22:20 Completed CMP [Comprehensive Metabolic Panel] Stat Lab 05/12/24 22:20 Completed CRP [C-Reactive Protein] Stat Lab 05/12/24 22:20 Completed HIV (1&2) Antibody Rapid Stat Lab 05/12/24 22:00 Completed Hep C Ab with Reflex to RNA Stat Lab 05/12/24 22:00 Received Lactic Acid Stat Lab 05/12/24 22:45 Completed MAG [Magnesium] Stat Lab 05/12/24 22:20 Completed PHOS [Phosphorous] Stat Lab 05/12/24 22:20 Completed PT INR [Prothrombin Time INR] Stat Lab 05/12/24 22:20 Completed PTT [Activated Partial Thrombo Time] Stat Lab 05/12/24 22:20 Completed Procalcitonin Stat Lab 05/12/24 22:20 Completed T4 (Thyroxine) Stat Lab 05/12/24 22:20 Completed TSH [Thyroid Stimulating Hormone] Stat Lab 05/12/24 22:20 Completed UA [Urinalysis and Microscopic] Stat Lab 05/13/24 00:05 Completed Medical Decision Narrative: In summary, this patient is a 64-year-old presenting to the Emergency Department for evaluation of frequent falls. Differential diagnoses considered include but are not limited to worsening weakness in the setting of Parkinson disease, dehydration, electrolyte derangements, UTI, pneumonia, traumatic injuries from fall. Ruling out the most morbid conditions drove assessment. It should be noted patient's history includes Parkinson's disease, hypertension, hyperlipidemia, diabetes which may or may not be at goal therapy. This complicates all aspects of care by increasing patient's risk for morbidity. I reviewed patient's past medical records and noted previous evaluations by behavioral health, neurology, ENT. On exam, the patient is lying in bed in no acute distress. She is obese. She has superficial abrasion to her lip and tenderness to palpation of her right shoulder. She is neurovascularly intact distally in all 4 extremities. Cardiopulmonary and abdominal exams are benign. Of note, she does have borderline fever with a temp of 99.9 ?F and is slightly tachycardic in the low 100s. She denies any fevers or notable sources of infection. Workup included broad lab evaluation to evaluate for infectious, metabolic causes of frequent falls. I also obtain CT head and C-spine without contrast to evaluate for traumatic injury as well as chest x-ray and pelvic x-ray. Urinalysis was obtained for infectious workup given borderline fever and worsening in general debility and frequent falls. Patient care signed out to the oncoming provider, Dr. Kaur, pending workup and disposition. Kaur: Upon my assumption of care patient is stable. She is complaining of mild pain in the right upper extremity and received Tylenol. I reviewed labs which demonstrate mild leukocytosis, no anemia, INR slightly elevated with normal PT and APTT, CMP with prerenal azotemia, she is tolerating oral intake and is being encouraged to drink water. CRP is elevated at 128, lactic normal at 1.1, UA with positive nitrites and bacteria, 5-10 WBCs though it is not a perfectly clean-catch and is contaminated with few squamous cells, the nitrates make me suspicious that patient does have urinary tract infection. She is receiving Rocephin for treatment. I discussed patient's falls with her at bedside, she states she does have frequent falls, but not typically multiple in 1 day like she did today. UTI could explain this. Therefore I believe patient requires admission for a urinary tract infection treatment and repeated falls as well as debility. Hopefully she improves significantly with antibiotics and is back to her baseline. Patient and at bedside are comfortable with this plan. I personally interpreted all x-ray imaging and do not appreciate acute traumatic injuries, no infiltrate in the lungs, see radiology reads for final interpretations. I personally interpreted head CT and C-spine CT and do not appreciate any severe traumatic injury such as skull fracture, brain bleed, or cervical spine fracture/malalignment. See radiology reads for final interpretation. Patient is appropriate for admission at this time. I attempted to discuss this case with Dr. Matute who is on-call for Dr. Jones. Despite multiple attempts to contact him, he had not called back and after more than 1 hour of waiting for him to contact me, the decision was made to discuss this case with the hospitalist so patient could be admitted for inpatient care. I discussed patient's clinical findings, multiple falls in the setting of UTI and Parkinson's. Patient was graciously accepted for admission by the hospitalist. Critical Care <Patricia Oviedo, DO - Last Filed: 05/12/24 23:57> Critical Care Time Critical Care Time: No
[2024-05-12 23:02] LABS: C-Reactive Protein 128.1 mg/L (0-4)
[2024-05-12 23:04] LABS: Blood Urea Nitrogen 27 mg/dl (7-17); Creatinine Clearance Estimated 100 mL/min (50-200); Estimated Glomerular Filt Rate 72 ml/min (>60); GFR (African American) 87 ML/MIN (>60)
[2024-05-12 23:06] LABS: HIV (1&2) Antibody Rapid NONREACTIVE (NONREACTIVE)
--- NOTE | 2024-05-12 23:12 | ECG_ITS ---
APPROVED REPORT Exam: Resting ECG HR:100 bpm ECG Measurements Heart Rate 100 AXES DC 157 P 54 QRSd 94 QRS 23 QT 347 T 30 QTc 404 Conclusion SINUS TACHYCARDIA ABNORMAL RHYTHM ECG Electronically signed by : RUBÉN NINA, 05/13/2024 05:16:19
[2024-05-12 23:16] LABS: T4 (Thyroxine) 5.8 ug/dl (5.53-11.0)
[2024-05-12] MEDS: MAGNESIUM SULFATE IN WATER 2 GM/50 ML PIGGYBACK IV (23:19)
[2024-05-12 23:29] LABS: Thyroid Stimulating Hormone 3.18 uIU/mL (0.465-4.68)
[2024-05-12 23:31] VITALS: BP 141/64; PULSE 102; O2SAT 92
[2024-05-12] MEDS: ACETAMINOPHEN 500MG TAB 1000 MG PO (23:59)
[2024-05-13] VITALS (10 sets, daily range): BP systolic 123–168; BP diastolic 55–91; PULSE 86–98; RESP 18; TEMP 36.6–37.1; O2SAT 92–97; BMI 39.7
[2024-05-13 00:12] LABS: Microscopic, Urine URINE MICROSCOPIC (MICROSCOPIC)
[2024-05-13 00:13] LABS: Bilirubin,Urine Negative (Negative); Blood, Urine Negative (Negative); Glucose,Urine (UA) 1+ (Negative); Ketones,Urine TRACE (Negative); Leukocyte Esterase,Urine Negative (Negative); Nitrate,Urine POSITIVE (Negative); Protein,Urine 1+ (Negative); Specific Gravity, Urine >= 1.030 (1.005-1.030)
[2024-05-13 00:14] LABS: Appearance,Urine Slightly Cloudy (Clear); Color,Urine Dark Yellow (Yellow)
[2024-05-13 00:28] LABS: Bacteria,Urine 1+ /lpf
[2024-05-13 00:30] LABS: Lactic Acid 1.1 mmol/L (0.7-2.1)
[2024-05-13] MEDS: CEFTRIAXONE 1 GM 1 GM in 0.9 % SODIUM CHLORIDE 50 ML IV ×2 (00:46→09:11)
--- NOTE | 2024-05-13 01:21 | PC.NURSE ---
Dr. Jones being paged for admission
--- NOTE | 2024-05-13 01:42 | PC.NURSE ---
Second page initiated for Dr. Stein.
--- NOTE | 2024-05-13 01:42 | PC.NURSE ---
Dr. Matute paged for second time
--- NOTE | 2024-05-13 02:23 | PC.NURSE ---
Dr. Matute paged for third time
--- NOTE | 2024-05-13 02:41 | PC.NURSE ---
Pt to CT scan via stretcher
--- NOTE | 2024-05-13 02:42 | PC.NURSE ---
disregard previous note placed in error
--- NOTE | 2024-05-13 03:00 | PC.NURSE ---
0235 Dr Kaur unable to reach Dr Matute dry house wheeler notified instructed to notify Hospitalist of need for admission.
--- NOTE | 2024-05-13 03:17 | P.HP_ITS ---
History of Present Illness *Admission Date: 05/13/24 *Reason for visit:: Fall falling at home and UTI *History of present illness: This 64-year-old female patient with Parkinson. The patient who has had Parkinson's for quite some time with major depression. Has fallen 3 times at home requiring EMS to come to be able to help her up.. I was told after the third fall they brought her to the emergency room. I have talked with the ER provider and she is told me she has done a complete workup finding no significant physical injury there besides a few small abrasion to lips and side of head.. That there is a mild urinary tract infection, patient has received first dose of Rocephin in the emergency room. I have agreed to except the patient and will place her on the floor due to her being a danger with her new onset of falling. The patient states that normally she uses a cane in the house, or sometimes a walker. She does not know why she is falling she just feels terribly dizzy and then she goes down. She stated she does not feel any weaker than she normally feels. I personally evaluated the imaging and see that there is no significant findings. Going over her labs note that she is low on magnesium that has been replaced in the emergency room and that she has a mild urinary tract infection with positive nitrites and a few WBCs. Have gone through the records and I found that they have been changing her medicines recently due to severe depression. Patient saw the neurologist and carbidopa was changed from a short acting to a long-acting on 03 06 she also was then started on a medication rexalit and had that increased on . Return to the office and also had increased on 05/03/24,. Noting that one of the side effects is dizziness. .I do feel that the patient needs to be admitted tonight for personal safety to evaluate the ability for self-care and ambulatio treat the urinary tract infection have her evaluated by physical therapy to determine if the patient can safely be released back home without having rehabilitation of some type. [facility] Disclaimer: The information contained in this section may have been updated after the patient was seen, as this information can be updated by other users. Medical History (Updated 05/13/24 @ 07:51 by Manuel Salgado MD) Depression Bilateral impacted cerumen Otitis externa of left ear Mixed hearing loss of left ear SNHL (sensorineural hearing loss) Dizziness Bilateral hearing loss Urinary tract infection Parkinson disease Osteoarthritis Diabetes mellitus, type 2 Hyperlipidemia Hypertension Breast cancer Bilateral impacted cerumen Chronic external ear infection Recurrent major depression resistant to treatment Surgical History History of tonsillectomy and adenoidectomy History of skin graft History of lumpectomy of left breast History of cholecystectomy History of lumpectomy of left breast History of carpal tunnel surgery of left wrist Hx of cholecystectomy Family History Other Cancer Coronary artery disease Diabetes Hyperlipidemia Hypertension Stroke Social History Smoking Status: Never smoker alcohol intake: never substance use type: denies use current occupational status: disabled Travel in the last 8 weeks: None household members: spouse housing: house number of children: 0 current occupational exposures/hazards: No caffeine: Yes Other Medical History Have you received the Flu Vaccine for this season: No Have you received the Pneumonia Vaccine: Yes Review of Systems Review of Systems Review of systems:: pertinent systems reviewed and negative unless documented below Constitutional Constitutional: Reports as per HPI Eyes Eyes: Reports as per HPI ENT Ears, Nose, Mouth, and Throat: Reports as per HPI *Cardiovascular Cardiovascular: Reports as per HPI *Respiratory Respiratory: Reports as per HPI *Gastrointestinal Gastrointestinal: Reports as per HPI *Genitourinary Genitourinary: Reports as per HPI *Musculoskeletal Musculoskeletal: Reports as per HPI Comments: Small skin abrasion to the side of the scalp and to mid lip Integumentary/Breasts Skin/Breast: Reports as per HPI *Neurologic Comments: Hearing is adequate she understands normal volume of speech Psychiatric Psychiatric: Reports as per HPI Comments: The patient is alert and oriented to where she is., Slow to respond, but does eventually get around to answering all questions Endocrine Endocrine: Reports as per HPI Hematologic/Lymphatic Hematologic/Lymphatic: Reports as per HPI Allergic/Immunologic Allergic/Immunologic: Reports as per HPI Meds Home Medications and Allergies Home Medications ?Medication ?Instructions ?Recorded ?Confirmed ?Type atorvastatin 20 mg tablet 20 mg PO HS High cholesterol 07/05/17 05/13/24 History gabapentin 300 mg capsule 300 mg PO TIDP PRN neuropathic pain 07/05/17 05/13/24 History meloxicam 7.5 mg tablet 7.5 mg PO DAILY 07/05/17 05/13/24 History metformin 500 mg tablet 1,000 mg PO BID Diabetes 07/05/17 05/13/24 History multivitamin 1 each PO DAILY Supplement 07/05/17 05/13/24 History L.acidoph, paracasei,B. lactis 10 1 each PO DAILY Supplement 10/09/18 05/13/24 History billion cell capsule biotin 5 mg capsule 5 mg PO BID 10/09/18 05/13/24 History calcium 600 mg (as 1 each PO BID Supplement 10/09/18 05/13/24 History carbonate)-vitamin D3 20 mcg (800 unit) tablet cinnamon bark-chromium picolinate 2 cap PO BID Supplement 10/09/18 05/13/24 History 500 mg-100 mcg capsule coenzyme Q10 100 mg capsule 100 mg PO DAILY Supplement 10/09/18 05/13/24 History krill iwp-rmcpf-5-dha-epa 300 1 each PO DAILY Supplement 10/09/18 05/13/24 History mg-90 mg (27 mg-45 mg) capsule aspirin 81 mg tablet,delayed 81 mg PO DAILY 05/09/19 05/13/24 History release (Jacki Low Dose Aspirin) fenofibrate nanocrystallized 145 145 mg PO DAILY 10/30/19 05/13/24 History mg tablet lisinopril 20 mg tablet 20 mg PO DAILY Hypertension 10/30/19 05/13/24 History metoprolol succinate 50 mg 50 mg PO DAILY 07/05/22 05/13/24 History tablet,extended release 24 hr pen needle, diabetic 31 gauge x #1,200 ea 05/24/23 05/13/24 History 3/16 (BD Ultra-Fine Mini Pen Needle) duloxetine 60 mg capsule,delayed 60 mg PO DAILY #90 caps 10/09/23 05/13/24 Rx release semaglutide 7 mg tablet (Rybelsus) 7 mg PO DAILY 11/07/23 05/13/24 History duloxetine 30 mg capsule,delayed 30 mg PO DAILY 11/08/23 05/13/24 History release fluoxetine 40 mg capsule 40 mg PO DAILY 11/08/23 05/13/24 History insulin glargine 100 unit/mL 50 unit (0.5 mL) SQ BID Diabetes 11/08/23 05/13/24 Rx subcutaneous solution #1 mL insulin aspart U-100 100 unit/mL 0 unit SQ DIRECTED Diabetes 02/22/24 05/13/24 History (3 mL) subcutaneous pen ascorbic acid (vitamin C) 1,000 mg 500 mg PO DAILY 03/06/24 05/13/24 History chewable tablet carbidopa ER 50 mg-levodopa 200 mg 1 tab PO QID Parkinsonian syndrome 03/06/24 05/13/24 Rx tablet,extended release #120 tabs lumateperone 42 mg capsule 42 mg PO DAILY 05/13/24 05/13/24 History (Caplyta) New Prescriptions to Start Prescriptions: Allergies Allergy/AdvReac Type Severity Reaction Status Date / Time No Known Allergies Allergy Verified 04/15/24 11:23 Exam Data for Last 24 hours Vital signs and Labs for Last 24 Hours: Temp Pulse Resp BP Pulse Ox O2 Del Method 97.9 F 92 H 18 162/84 H 94 L Room Air 05/13/24 02:59 05/13/24 02:59 05/13/24 02:59 05/13/24 02:59 05/13/24 02:22 05/13/24 02:59 Laboratory Results - last 24 hr 05/12/24 22:00: HIV 1&2 Antibody Rapid Nonreactive 05/12/24 22:20: WBC 12.0 H, RBC 4.57, Hgb 13.5, Hct 40.1, MCV 87.7, MCH 29.6, MCHC 33.8, RDW 14.2, Plt Count 122 L, MPV 10.5 H, Neut % (Auto) 84.0 H, Lymph % (Auto) 8.7 L, [place] % (Auto) 5.8, Eos % (Auto) 1.1, Baso % (Auto) 0.4, Neut # (Auto) 10.1 H, Lymph # (Auto) 1.0, [place] # (Auto) 0.7, Eos # (Auto) 0.1, Baso # (Auto) 0.1, PT 12.4, INR 1.12 H, APTT 25.4, Sodium 135 L, Potassium 4.1, Chloride 103, Carbon Dioxide 21 L, Anion Gap 15.1 H, BUN 27 H, Creatinine 0.80, Estimated Creat Clear 100, Estimated GFR 72, Est GFR ( Amer) 87, Glucose 301 H, Calcium 9.6, Phosphorus 2.6, Magnesium 1.3 L, Total Bilirubin 0.8, AST 28, ALT 31, Alkaline Phosphatase 54, Total Creatine Kinase 111, C-Reactive Protein 128.1 H, Total Protein 7.0, Albumin 4.0, Globulin 3.0, Albumin/Globulin Ratio 1.3, Procalcitonin 0.100, TSH 3.18, Thyroxine (T4) 5.8 05/13/24 00:05: Urine Color Dark yellow, Urine Appearance Slightly cloudy, Urine pH 6.0, Ur Specific [place] >= 1.030, Urine Protein 1+ A, Urine Glucose (UA) 1+, Urine Ketones Trace, Urine Blood Negative, Urine Nitrate Positive, Urine Bilirubin Negative, Urine Urobilinogen 1.0, Ur Leukocyte Esterase Negative, Urine RBC None, Urine WBC 5-10, Ur Squamous Epith Cells 3-5, Urine Bacteria 1+ 05/13/24 00:14: Lactate 1.1 I & O for Last 24 hours: Intake & Output 05/10/24 05/11/24 05/12/24 05/13/24 23:59 23:59 23:59 23:59 Weight 113.398 kg Constitutional Constitutional: mild distress, obese, chronically ill appearing and cooperative Comments: I have not met the patient before but I believe that she is at her normal baseline. She appears slightly somnolent, as if slightly disconnected from everything around her. But she does follow all my request and she answers que stions well. She acts like she has just been a little bit stunned *Routine HEENT Exam Head: Present normocephalic, scalp tenderness (Abrasion to the side of the scalp) and other (Mid upper lip abrasion) Eye: Present EOMI, PERRL and normal accommodation ENT: Present mucous membranes dry *Routine Neck Exam Neck: Present supple Comments: Patient is very large her neck is actually movable but very stiff, no signs of any injury Routine Chest/Breast/Axilla Exam Comments: During the exam I did not find any chest wall tenderness *Routine Respiratory Exam Respiratory: Present CTA bilaterally, distant breath sounds, normal respiratory effort, able to speak in complete sentences and symmetric chest movement *Routine Cardiovascular Exam Cardiovascular: Present RRR, Normal S1, Normal S2 and tachycardia Comments: Noting brisk capillary refills to the nailbeds but also noting that mild edema especially to the right lower extremity slight redness through the entire lower portion of the leg there is no tenderness, there is no weeping there is no blistering and there is no skin breakdown, *Routine Abdominal Exam Abdominal: Present soft, normoactive bowel sounds, distended and obese Comments: No pain found upon abdominal exam *Routine Rectal Exam Rectal:: deferred *Routine Genitalia Exam Genitalia:: deferred *Routine Extremities Exam Extremities: Present edema and tenderness Comments: Examination of the lower extremities finds that the right leg has more edema very warm to the touch through the whole leg with a slight erythemic haze from knee to ankle, no overt sign of cellulitis but question what is causing this if may be early signs. Circulation appears to be adequate Routine Back/Spine/Pelvis Exam Back/Spine: Present full ROM Comments: I did not get the patient out of bed she stated on the stretcher I did not sit her up *Routine Skin Exam Skin: Present dry and warm Comments: As noted above some small abrasions to the side of the head and lip and the right lower extremity having erythema *Routine Neurological Exam Neurological: Present alert, motor deficit, vision grossly intact, hearing grossly intact and tremors (Right hand tremors with had her reach up and grab my hand tremor then went away) Comments: No signs of lip movement patient's is able to talk well I can understand her without any difficulty, but is very almost acting sedated very slow in her responses very stiff. Never meeting her before I do not know if this is her baseline from her Parkinson's Routine Psychiatric Exam Psychiatric: Present cooperative and depressed Comments: Very stiff and almost withdrawal, very slow in all of her mannerisms H&P: Result Impressions 1. Sudden falling at home., Has mild urinary tract infection, but also has had medication changes over the past month of increasing some of her psychiatric meds 2. Urinary tract infection, per labs mild 3. History of severe depression, patient on multiple medications for this 4. Parkinson, that is fairly severe with her stiffness. Imaging and Cardiology shoulder x-ray: Status: image reviewed by me Additional comments: X-ray of pelvis arm and shoulder, and CT scan of head all reviewed by myself no significant injuries were found there was no fractures noted. Assessment and Plan *Assessment and plan (1) Urinary tract infection: Status: Acute Qualifiers: Hematuria presence: without hematuria Urinary tract infection type: acute cystitis Qualified Code(s): N30.00 - Acute cystitis without hematuria Category: Medical Code(s): N39.0 - Urinary tract infection, site not specified (2) WILLAM (acute kidney injury): Status: Acute Category: Medical Code(s): N17.9 - Acute kidney failure, unspecified (3) Fall: Status: Acute Qualifiers: Encounter type: initial encounter Qualified Code(s): W19.XXXA - Unspecified fall, initial encounter Category: Medical Code(s): W19.XXXA - Unspecified fall, initial encounter (4) Dizziness: Status: Acute Category: Medical Code(s): R42 - Dizziness and giddiness (5) Parkinsonian syndrome: Problem Comment: Parkinsonian syndrome Status: Suspected Qualifiers: 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 Qualified Code(s): 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 Category: Medical Code(s): G20 - Parkinson's disease (6) Depression: Status: Acute Qualifiers: Active/Remission status: remission status unspecified Depression Type: major depressive disorder Major depression recurrence: unspecified whether recurrent Qualified Code(s): F32.9 - Major depressive disorder, single episode, unspecified Category: Medical Code(s): F32.A - Depression, unspecified (7) Diabetes type 2, uncontrolled: Status: Chronic Qualifiers: Glycemic state: with hyperglycemia Qualified Code(s): E11.65 - Type 2 diabetes mellitus with hyperglycemia Category: Medical Code(s): E11.65 - Type 2 diabetes mellitus with hyperglycemia (8) Long-term insulin use: Status: Acute Category: Medical Code(s): Z79.4 - residential (current) use of insulin (9) Morbid obesity with body mass index (BMI) of 40.0 to 44.9 in adult: Status: Acute Category: Medical Code(s): E66.01 - Morbid (severe) obesity due to excess calories; Z68.41 - Body mass index [BMI] 40.0-44.9, adult (10) BMI 40.0-44.9, adult: Status: Chronic Category: Medical Code(s): Z68.41 - Body mass index [BMI] 40.0-44.9, adult (11) Recurrent major depression resistant to treatment: Status: Acute Category: Medical Code(s): F33.9 - Major depressive disorder, recurrent, unspecified (12) Edema of right lower leg due to peripheral venous insufficiency: Status: Acute Category: Medical Code(s): I87.2 - Venous insufficiency (chronic) (peripheral); R60.0 - Localized edema Plan Patient falling at home. Found to have concern for UTI and medication side effect. Discussed case with ER physician, request admission for further management, therapy eval, possible placement. Medicine agreed to admit. Problems addressed as follows: Parkinson's Frequent falls - Patient falling with Parkinson's disorder. Also with major depression with recent medication changes. The patient has started to fall for an unknown reason., She is talking about being dizzy. . It is noted that she has had medications increased which do have a side effect of dizzines also has significant Parkinson's type disorder. Also with tremor. There is significant deconditioning related to this. And the patient has morbid obesity. Will try to figure out if there is a reason for her to be having weakness and falling or if it is just a progression of her chronic diseases. For this reason have contacted an order for case management to evaluate the ability for self-care and whether or not the patient on discharge can return home. Physical therapy and Occupational Therapy orders will be applied -Continue carbidopa/levodopa per home regimen 4 times a day today Urinary tract infection WILLAM - Concern for prerenal azotemia with BUN 27, creatinine 0.8. - mild, Rocephin has been given in the emergency room and will continue at this time 1 mg IV daily - White count elevated at 12; urinalysis abnormal with positive nitrite, negative leuk esterase, 5-10 whites and 1+ bacteria. Culture pending. -Repeat CBC, CMP, magnesium ordered for the morning -Administer 1 L of normal saline at 200 cc an hour. Diabetes: Continue insulin glargine 50 units subcu twice daily per home regimen. Sliding scale insulin with fingersticks ACHS -Glucose on admission 301 -A1c pending Right lower extremity and foot with edema redness and warmth.. Unsure if this is early cellulitis or venous insufficiency related to her diabetes, there does not appear to be any injury that would have caused this. Severe depression difficult to treat, seeing healthcare professionals adjusting medications at this point in time. Holding Rexulti at this time due to falls above. Hammertoes to both feet. She does see slaughterer religious ritual there are notes about how the fifth care is being done for this diabetic individual. I have gone through all of her old records notes from offices and other providers. Have examined all the x-rays going through all the labs the patient does need to be admitted she is unsafe to go home at this point in time. Short- term goals is to treat the urinary tract infection, evaluate this right lower leg to see if this is something that is going to get worse., Then will also nee d to evaluate the medications he is on that may be causing her dizziness and falling versus the need because of her severe depression that has been hard to treat. That is why of it determined that she needs to be admitted at this time we will also start with physical therapy and OT to see if we are able to come up with a discharge planning that she would be safe to be able to go home in the future or needing rehab Full code Diet diet Rounded on patient after nurse practitioner. Personally examined and interviewed patient. Agree with exam findings and care plan as documented. Adjustments made to plan above.
--- NOTE | 2024-05-13 05:23 | PC.NURSE ---
Since arriving to the floor the patient has had a bath and is resting comfortably in bed. Has had no complaints
[2024-05-13] MEDS: humaLOG 100 UNITS/ML 10ML VIAL (SSI) SUBCUT ×4 (05:40→21:48)
[2024-05-13 06:27] LABS: Basophils % 0.4 % (0.1-2.0); Eosinophils # 0.1 K/mm3 (0.0-0.4); Eosinophils % 1.2 % (0.1-12.0); Hematocrit 37.9 % (37.0-47.0); Hemoglobin 12.8 g/dL (12.2-16.2); Lymphocytes # 1.7 K/mm3 (0.7-4.5); Lymphocytes % 13.6 % (10-50); Mean Corpuscular HGB Conc 33.9 g/dL (31.8-35.4); Mean Corpuscular Hemoglobin 30.2 pg (27.0-31.2); Mean Corpuscular Volume 89.2 fl (81-99); Mean Platelet Volume 9.9 fl (7.4-10.4); Monocytes # 0.5 K/mm3 (0.1-1.0); Monocytes % 4.2 % (1.7-9.3); Neutrophils # 9.8 K/mm3 (1.8-7.8); Neutrophils % 80.6 % (37.0-80.0); Platelet Count 171 K/mm3 (142-424); Red Blood Count 4.24 M/mm3 (4.20-5.40); Red Cell Distribution Width 14.1 % (11.5-17.5); White Blood Count 12.1 K/mm3 (4.8-10.8)
[2024-05-13 06:43] LABS: Alanine Aminotransferase 27 U/L (12-78); Albumin Level 3.8 g/dl (3.5-5.0); Albumin/Globulin Ratio 1.3 (1.1-1.8); Alkaline Phosphatase 45 U/L (38-126); Anion Gap 12.9 mEq/L (5-15); Aspartate Amino Transferase 36 U/L (14-36); Bilirubin,Total 0.8 mg/dl (0.2-1.3); Blood Urea Nitrogen 25 mg/dl (7-17); Calcium 9.3 mg/dl (8.4-10.2); Carbon Dioxide 24 mmol/L (22.0-30.0); Chloride 103 mmol/L (98-107); Creatinine Clearance Estimated 99 mL/min (50-200); Estimated Glomerular Filt Rate 84 ml/min (>60); GFR (African American) 102 ML/MIN (>60); Glucose 237 mg/dl (74-100); Magnesium 1.7 mg/dl (1.6-2.3); Potassium 3.9 mmoL/L (3.5-5.1); Sodium 136 mmol/L (136-145); Total Protein,Serum 6.8 g/dl (6.3-8.2)
--- NOTE | 2024-05-13 07:30 | [facility].PHAINT1 ---
Pharmacy Intervention Comments: home medication list verified using list from outpatient pharmacy and pt interview
--- OUTSIDE RECORDS SUMMARY | 2024-05-13 08:12 | XMS_ITS ---
[facility] [address] [place] [id number] Care Team Providers Care Human Resources Operations Coordinator Name Role Phone Robert Ricky Primary Care Provider [phone] ALLERGIES No Known Allergies REASON FOR VISIT 6 mos checkup MEDICATIONS Medication SIG (Take, Route, Frequency, Duration) Notes Start Date End Date Status Calcium-Vitamin D-Minerals 600-800 MG-UNIT 1 tab(s) orally 2 times a day for 30 day(s) Active CoQ-10 100 MG 1 cap(s) orally once a day for 30 day(s) Active Biotin 5 MG 1 tab(s) orally once a day Active Gabapentin 300 MG 1 cap(s) orally 3 times a day for 30 day(s) Active Carbidopa-Levodopa ER 25-100 MG 1 tablet as needed Orally Four times a Week Active NovoLOG 100 UNIT/ML 30 units am, 20 in the afternoon and 30 in the pm subcutaneously 3 times a day Active Lantus 100 UNIT/ML 50 units subcutaneously every 12 hours Active Aspirin Adult Low Dose 81 MG 1 tab(s) orally once a day Active Atorvastatin Calcium 20 MG 1 tab(s) orally once a day (at bedtime) Active Lisinopril 20 mg 1 tablet Orally Once a day Active DULoxetine HCl 60 MG 1 cap(s) orally once a day (60 mg and 30 mg) Active metFORMIN HCl 500 MG 1 tab(s) orally 2 times a day Active Slow Fe 45 MG 1 tablet Orally Thre e times a Week for 30 day(s) Active Rexulti 1 MG 1 tablet Orally Once a day for 30 day(s) Active Metoprolol Succinate ER 50 MG 1 tablet Orally Once a day Active DULoxetine HCl 30 MG 1 cap(s) orally 2 times a day Active Meloxicam 7.5 MG 1 tab(s) orally once a day for 90 days Active FLUoxetine HCl 40 MG 1 cap(s) orally once a day Active Apple Cider Vinegar Plus - as directed Orally Active Rybelsus 7 MG 1 tablet at least 30 minutes before first food, beverage or other oral medicine of the day Orally Once a day for 90 days Active BD Insulin Syringe U/F 30G X 1/2 1 ML USE 1 SYRINGE UNDER THE SKIN TWICE A DAY Active BD Insulin Syringe U/F 1 SET SUBQ TWICE A DAY for 90 DAYS *Please review and pick correct strength-formulati on from Access Closure options. If intended option is not shown, discontinue and re-order from Quick Search* 02/09/2019 Active Fenofibric Acid 135 MG 1 cap(s) orally once a day Active FreeStyle Jonathan 3 [place] - as directed 11/14/2023 Active Cinnamon 500 MG 2 cap(s) orally 2 times a day Active Super B-Complex - 1 tab(s) orally once a day Active Vitamin C 100 MG 1 tab(s) chewed once a day for 30 day(s) Active Krill Oil 1000MG 2 TABS QD Act renny Glucosamine & Fish Oil 773-750-90-40 MG 3 cap(s) orally once a day Active IMMUNIZATIONS Vaccine Route Administration Date Status Comme nts Fluzone High Dose (65yr and older) IM Intramuscular 04/17/2024 Administered PNEUMOVAX 23 VACCINE IM Intramuscular 04/17/2024 Administe red PROBLEMS Problem Type ICD Code Onset Dates Problem Status W/U Status Risk SNOMED Code Notes Problem Parkinson's disease, unspecified whether dyskinesia present, unspecified whether manifestations fluctuate (G20.A1) Active confirmed 68213377 VITAL SIGNS Weight 249 lbs 04/17/2024 Blood pressure systolic 134 mm Hg 04/17/20 24 Blood pressure diastolic 68 mm Hg 024 Heart Rate 82 /min 04/17/2024 Height 66 in 04/17/2024 BMI 40.19 kg/m2 04/17/2024 Encounters Encounter Location Date Provider Diagnosis [facility] [address] [place] [id number] 04/17/2024 Ricky Jones Essential hypertensi on I10 ; Hyperlipidemia, unspecified hyperlipidemia type E78.5 ; Depressive disorder F32.9 ; Generalized anxiety disorder F41.1 ; Encounter for immunization Z23 and Parkinson's disease, unspecified whether dyskinesia present, unspecified whether manifestations fluctuate G20.A1 ASSESSMENTS Encounter Date Diagnosis Assessment Notes Treatment Notes Treatment Clinical Notes 04/17/2024 Essential hypertension (ICD-10 - I10) 04/17/2024 Hyperlipidemia, unspecified hyperlipidemia type (ICD-10 - E78.5) 04/17/2024 Depressive disorder (ICD-10 - F32.9) 04/17/2024 Generalized anxiety disorder (ICD-10 - F41.1) 04/17/2024 Encounter for immunization (ICD-10 - Z23) 04/17/2024 Parkinson's disease, unspecified whether dyskinesia present, unspecified whether manifestations fluctuate (ICD-10 - G20.A1) 04/17/2024 Other Notes and results from Endo and Neurology reviewed in office today PLAN OF TREATMENT Medication Medication Name Sig Start Date Stop Date Notes Carbidopa-Levodopa ER 25-100 MG 1 tablet as needed Orally Four times a Week Atorvastatin Calcium 20 MG 1 tab(s) oral ly once a day (at bedtime) Lisinopril 20 mg 1 tablet Orally Once a day DULoxetine HCl 60 MG 1 cap(s) orally onc e a day (60 mg and 30 mg) Metoprolol Succinate ER 50 MG 1 tablet Orally Once a day DULoxetine HCl 30 MG 1 cap(s) orally 2 t imes a day FLUoxetine HCl 40 MG 1 cap(s) orally once a day Treatment Notes Assessment Notes Other Notes and results fr Endo and Neurology reviewed in office today Next Appt Details Follow Up: 6 Months, Reason: Provider Name:Ricky Chaudhary ry, 10/11/2024 09:15:00 AM, [address] [facility], [address] , [place], [place], [id number], Progress Notes * Examination Category Sub-Category Detail Notes Cardiology Lungs: clear, no rales or wheezes Heart sounds: RRR, normal S1, S2 General Appearance: pleasant, NAD, blunt ed affect, using a cane to assist with ambulation History and Physical Notes * HPI (History of Present Illness) Category Sub-Category Detail Notes Endocrinology Recent Blood Sugars Pt here to f /u on DM 2 Cardiology Blood Pressure Elevated Pt here for 6 mo f/u on hypertension, states she is doing well and does not have any concerns Hyperlipidemia Pt is not fasting to day
--- OUTSIDE RECORDS SUMMARY | 2024-05-13 08:12 | XMS_ITS ---
Author Organization [facility] Address [address] [facility] [address] [place] [id number] Care Team Providers Care Whiskey Regauger Name Role Phone Ricky Jones Primary Care Provider [phone] Encounters Encounter Location Date Provider Diagnosis [facility] [address] [facility] [address] [place] [id number] 01/19/2024 Ricky Jones PLAN OF TREATMENT Next Appt Details Provider Name:Ricky Chaudhary ry, 10/11/2024 09:15:00 AM, [address] [facility], [address], [place], [phone],
--- OUTSIDE RECORDS SUMMARY | 2024-05-13 08:12 | XMS_ITS ---
[facility] [address] [place] [id number] Care Team Providers Care Certified Alcohol Counselor Name Role Phone Robert Ricky Primary Care Provider ALLERGIES No Known Allergies REASON FOR VISIT HMM d/c f/u MEDICATIONS Medication SIG (Take, Route, Frequency, Duration) Notes Start Date End Date Status Metoprolol Succinate ER 50 MG 1 tablet Orally Once a day Active FreeStyle Jonathan 3 [place] - as directed 11/14/2023 Active Vitamin E 400 UNIT 1 cap(s) orally once a day for 30 day(s) Not-Taking Lisinopril 20 MG 1 tab(s) orally once daily Active Atorvastatin Calcium 20 MG 1 tab(s) orally once a day (at bedtime) Active Fenofibric Acid 135 MG 1 cap(s) orally once a day Active DULoxetine HCl 60 MG 1 cap(s) orally once a day (60 mg and 30 mg) Active DULoxetine HCl 30 MG 1 cap(s) orally 2 times a day Active Rybelsus 7 MG 1 tablet at least 30 minutes before first food, beverage or other oral medicine of the day Orally Once a day for 90 days Active Meloxicam 7.5 MG 1 tab(s) orally once a day for 90 days Active BD Insulin Syringe U/F 30G X 1/2 1 ML USE 1 SYRINGE UNDER THE SKIN TWICE A DAY Active FLUoxetine HCl 40 MG 1 cap(s) orally once a day Active BD Insulin Syringe U/F 1 SET SUBQ TWICE A DAY for 90 DAYS *Please review and pick correct strength-formulat ion from Medispan options. If intended option is not shown, discontinue and re-order from Quick Search* 02/09/2019 Active Cinnamon 500 MG 2 cap(s) orally 2 times a day Active Carbidopa-Levodopa 25-100 MG 1 tab(s) orally 3 times a day for 30 day(s) Active Vitamin C 100 MG 1 tab(s) chewed once a day for 30 day(s) Active Super B-Complex - 1 tab(s) orally once a day Active Krill Oil 1000MG 2 TABS QD Act renny Glucosamine & Fish Oil 477-504-23-40 MG 3 cap(s) orally once a day Active Gabapentin 300 MG 1 cap(s) orally 3 times a day for 30 day(s) Active CoQ-10 100 MG 1 cap(s) orally once a day for 30 day(s) Active Calcium-Vitamin D-Minerals 600-800 MG-UNIT 1 tab(s) orally 2 times a day for 30 day(s) Active Biotin 5 MG 1 tab(s) orally once a day Active Aspirin Adult Low Dose 81 MG 1 tab(s) orally once a day Active NovoLOG 100 UNIT/ML 30 units am, 20 in the afternoon and 30 in the pm subcutaneously 3 times a day Active metFORMIN HCl 500 MG 1 tab(s) orally 2 times a day Active Rexulti 1 MG 1 tablet Orally Once a day for 30 day(s) Active Slow Fe 45 MG 1 tablet Orally Three times a Week for 30 day(s) Active Lantus 100 UNIT/ML 50 units subcutaneously every 12 hours Active Apple Cider Vinegar Plus - as directed Orally Active PROBLEMS Problem Type ICD Code Onset Dates Problem Status W/U Status Risk SNOMED Code Notes Problem Hypoglycemia associated with diabetes (E11.649) Active confirmed 470623455 VITAL SIGNS Weight 250.6 lbs 11/14/2023 Blood pressure systolic 122 mm Hg 11/14/19 24 Blood pressure diastolic 60 mm Hg 024 Heart Rate 75 /min 11/14/2023 Height 66 in 11/14/2023 BMI 40.44 kg/m2 11/14/2023 Encounters Encounter Location Date Provider Diagnosis [facility] [address] [place], [place] [id number] 11/14/2023 Ricky [place] Hypoglycemia associa cheo with diabetes E11.649 ASSESSMENTS Encounter Date Diagnosis Assessment Notes Treatment Notes Treatment Clinical Notes 11/14/2023 Hypoglycemia associated with diabetes (ICD-10 - E11.649) Low blood sugars have resolved. Patient needs to start CGM due to repeated low blood sugar episodes with multiple daily insulin injections PLAN OF TREATMENT Medication Medication Name Sig Start Date Stop Date Notes FreeStyle Jonathan 3 [place] - as directed 11/14/2023 Treatment Notes Assessment Notes Hypoglycemia associated with diabetes Lo w blood sugars have resolved. Patient needs to start CGM due to repeated low blood sugar episodes with multiple daily insulin injections Next Appt Details Follow Up: via phone to repo rt progress, Reason: Provider Name:Ricky Chaudhary ry, 10/11/2024 09:15:00 AM, [address] [facility], [address], [place], [place], [id number], Progress Notes * Examination Category Sub-Category Detail Notes General Examination General Appearance: NAD, usi ng cane to assist with ambulation History and Physical Notes * HPI (History of Present Illness) Category Sub-Category Detail Notes HPI Here for follow up on: hospitali zation due to Hypoglycemia. Pt states she is doing better. Pt states her glucose was 120 this morning before she ate breakfast. Pt states refills are not needed at this time
--- OUTSIDE RECORDS SUMMARY | 2024-05-13 08:13 | XMS_ITS | Patient Health Record ---
Author Organization [facility] Address [address] [place] [phone] Care Team Providers Care Biomedical Technician Name Role Phone Ricky Jones Primary Care Provider ALLERGIES No Known Allergies RESULTS Component Value Reference Range Notes CBC Venipuncture (in house) Reviewed date:10/17/2023 12:39:55 PM Interpretation: Performing Lab: Notes/Report: wbc 8.3 3.5 - 10 lymph 20.8 15 - 50 mid 5.5 2 - 15 gran 73.7 35 - 80 rbc 4.70 3.5 - 5.5 hgb 13.5 11.5 - 16.5 hct 42.3 35 - 55 mcv 89.8 75 - 100 mch 28.8 25 - 35 mchc 32.0 31 - 38 platlet 236 100 - 400 CBC Venipuncture (in house) Reviewed date:10/17/2023 12:39:55 PM Interpretation: Performing Lab: Notes/Report: wbc 8.3 3.5 - 10 lymph 20.8 15 - 50 mid 5.5 2 - 15 gran 73.7 35 - 80 rbc 4.70 3.5 - 5.5 hgb 13.5 11.5 - 16.5 hct 42.3 35 - 55 mcv 89.8 75 - 100 mch 28.8 25 - 35 mchc 32.0 31 - 38 platlet 236 100 - 400 P-Comprehensive Metabolic Pa velma (CMP) Reviewed date:10/18/2023 01:44:08 PM Interpretation:Na 146, gluc 53 Performing Lab: Notes/Report: Test performed by [facility] [employer] [address] [place] [address] , [address], [place] [address] Nic Garcia MD, [employer] CLIA: [id number] Sodium 146 135-145 mEq/L Potassium 4.3 3.5-5.3 mEq/L Chloride 107 97-108 mEq/L CO2 24 22-32 mEq/L Glucose 53 65-99 mg/dL BUN 20 8-23 mg/dL Creatinine 0.77 0.50-1.00 mg/dL Calcium 9.8 8.6-10.4 mg/dL eGFR by Creatinine 86 >59 mL/min/1.73m2 Protein 6.6 6.0-8.3 g/dL Albumin 4.4 3.5-5.3 g/dL Alkaline Phosphatase 47 35-121 IU/L ALT (SGPT) 10 <5-47 IU/L AST (SGOT) 23 <5-40 IU/L Bilirubin, Total 0.3 <0.2-1.2 mg/dL A/G Ratio 2.0 1.1-2.5 mg/dL P-Lipid Panel Reviewed date:10/18/2023 01:44:08 PM Interpretation:trig 211, hdl 34 Performing Lab: Notes/Report: Test performed by [facility] [address] , [address], [place] [address] Nic Garcia MD, Check [employer]man CLIA: [id number] Cholesterol 134 <200 mg/dL Triglycerides 211 <150 mg/dL HDL Cholesterol 34 >39 mg/dL Cholesterol / HDL Ratio 3.94 0.00-4.44 Ratio Non-HDL Cholesterol 100 <130 mg/dL LDL Cholesterol (Calculation) 58 <130 mg/dL LDL Cholesterol Levels* Less than 100 mg/dL Optimal 100 to 129 mg/dL Near Optimal/ Above Optimal 130 to 159 mg/dL Borderline High 160 to 189 mg/dL High 190 mg/dL and above Very High * Categories as recommended by the 2004 ATPIII guidelines LDL/HDL Ratio 1.7 <3.3 Ratio LDL Cholesterol Patient History Test Date: 10/17/2023 LDL Results: 58 Units: mg/dL % Change: - P-TSH reflex to FT4 Reviewed date:10/18/2023 01:44:08 PM Interpretation:Normal Performing Lab: Notes/Report: Test performed by [facility] , [place] [address] Nic Garcia MD, Check [employer] CLIA: [id number] TSH reflex to FT4 2.08 0.43-5.25 mU/L P-Microalbumin/Creatinine, R andom Urine Sample Reviewed date:10/19/2023 08:18:23 AM Interpretation: Performing Lab: Notes/Report: Albumin/Creatinine Ratio, Urine Creatinine, Urine Microalbumin, Urine, Random Test Cancelled P-Uric Acid Reviewed date:10/18/2023 01:44:09 PM Interpretation:Normal Performing Lab: Notes/Report: Test performed by [facility] [address] , [place] [address] Nic Garcia MD, Check Airman CLIA: [id number] Uric Acid 5.6 2.4-7.0 mg/dL P-Microalbumin/Creatinine, R andom Urine Sample Reviewed date:10/19/2023 08:22:01 AM Interpretation:alb/creat 42 Performing Lab: Notes/Report: Test performed by [facility] [address] , [address], [place] [address] Nic Garcia MD, Check [employer] CLIA: [id number] Albumin/Creatinine Ratio, Urine 42 0-30 ug/m g Microalbumin, Urine, Random 3.7 Creatinine, Urine 87.5 Urine Culture and Sensitivit y Reviewed date:11/10/2023 03:22:53 PM Interpretation:Abnormal Performing Lab: Notes/Report: Abnormal MEDICATIONS Medication SIG (Take, Route, Frequency, Duration) Notes Start Date End Date Status Cinnamon 500 MG 2 cap(s) orally 2 times a day Active Super B-Complex - 1 tab(s) orally once a day Active Vitamin C 100 MG 1 tab(s) chewed once a day for 30 day(s) Active BD Insulin Syringe U/F 30G X 1/2 1 ML USE 1 SYRINGE UNDER THE SKIN TWICE A DAY Active BD Insulin Syringe U/F 1 SET SUBQ TWICE A DAY for 90 DAYS *Please review and pick correct strength-formulati on from [employer] options. If intended option is not shown, discontinue and re-order from Quick Search* 02/09/2019 Active DULoxetine HCl 60 MG 1 cap(s) orally once a day (60 mg and 30 mg) Active DULoxetine HCl 30 MG 1 cap(s) orally 2 times a day Active FLUoxetine HCl 40 MG 1 cap(s) orally once a day Active Krill Oil 1000MG 2 TABS QD Act renny Gabapentin 300 MG 1 cap(s) orally 3 times a day for 30 day(s) Active Glucosamine & Fish Oil 413-177-61-40 MG 3 cap(s) orally once a day Active NovoLOG 100 UNIT/ML 30 units am, 20 in the afternoon and 30 in the pm subcutaneously 3 times a day Active Lantus 100 UNIT/ML 50 units subcutaneously every 12 hours Active Meloxicam 7.5 MG 1 tab(s) orally once a day for 90 days Active Rybelsus 7 MG 1 tablet at least 30 minutes before first food, beverage or other oral medicine of the day Orally Once a day for 90 days Active metFORMIN HCl 500 MG 1 tab(s) orally 2 times a day Active Calcium-Vitamin D-Minerals 600-800 MG-UNIT 1 tab(s) orally 2 times a day for 30 day(s) Active CoQ-10 100 MG 1 cap(s) orally once a day for 30 day(s) Active Aspirin Adult Low Dose 81 MG 1 tab(s) orally once a day Active Biotin 5 MG 1 tab(s) orally once a day Active FreeStyle Jonathan 3 [place] - as directed 11/14/2023 Active Atorvastatin Calcium 20 MG 1 tab(s) orally once a day (at bedtime) Active Slow Fe 45 MG 1 tablet Orally Thre e times a Week for 30 day(s) Active Lisinopril 20 mg 1 tablet Orally Once a day Active Rexulti 1 MG 1 tablet Orally Once a day for 30 day(s) Active Metoprolol Succinate ER 50 MG 1 tablet Orally Once a day Active Apple Cider Vinegar Plus - as directed Orally Active Fenofibric Acid 135 MG 1 cap(s) orally once a day Active Carbidopa-Levodopa ER 25-100 MG 1 tablet as needed Orally Four times a Week Active IMMUNIZATIONS Vaccine Route Administration Date Status Comme nts xFluzone Intradermal (18-64yrs)-trivalent-medic are pts ID Intradermal 05/13/2014 Administered PNEUMOVAX 23 VACCINE IM Intramuscular 04/17/2024 Administe red Fluzone Quad-Medicare (6months&older) IM Intramuscular 04/10/2017 Administered Fluzone Quad-Medicare (6months&older) IM Intramuscular 04/01/2019 Administered Fluzone Quad (6months&older) IM Intramuscular 06/23/2020 Administered Fluzone Quad (6months&older) IM Intramuscular 04/18/2022 Administered Fluzone Quad (6months&older) IM Intramuscular 04/17/2023 Administered Fluzone Intradermal Quad private(18-64yrs) ID Intradermal 03/17/2016 Administered Fluzone High Dose (65yr and older) IM Intramuscular 04/17/2024 Administered Flublok IM Intramuscular 06/12/2018 Administered Flublok IM Intramuscular 04/22/2021 Administered COVID 19 Moderna IM Intramuscular 10/16/2020 Administered COVID 19 Moderna Unknown 11/13/2020 Administered COVID 19 Moderna Unknown 06/03/2021 Administered SOCIAL HISTORY Sex Assigned At : Social History Observation Description Sex Assigned At Unknown PROBLEMS Problem Type ICD Code Onset Dates Problem Status W/U Status Risk SNOMED Code Notes Problem Essential hypertensi on (I10) Active confirmed 68502988 Problem Morbid obesity (E66.01) Active confirmed 121132047 Problem Hypertriglyceridemia (E78.1) Active confirmed 897808791 Problem Hypoglycemia associated with diabetes (E11.649) Active confirmed 334740439 Problem History of breast cancer (Z85.3) Active confirmed 131078816 Problem Generalized anxiety disorder (F41.1) Active confirmed 81935300 Problem Mixed hyperlipidemia (E78.2) Active confirmed 095662615 Problem Parkinson's disease (G20) Active confirmed 97157924 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.4) Active confirmed 242436134 Problem Depressive disorder (F32.9) Active confirmed 89277181 Problem Primary osteoarthrit is of right knee (M17.11) Active confirmed 1425342499385 00 Problem Hyperlipidemia, unspecified hyperlipidemia type (E78.5) Active confirmed 73682968 Problem Atopic dermatitis, unspecified type (L20.9) Active confirmed 54533644 Problem Type 2 diabetes mellitus with mild nonproliferative diabetic retinopathy without macular edema, unspecified eye (E11.3299) Active confirmed 42207789 Problem Bilateral hearing loss, unspecified hearing loss type (H91.93) Active confirmed 79199557 Problem Numbness of left wise d (R20.8) Active confirmed 647505149 Problem Chronic otitis exter na of left ear, unspecified type (H60.62) Active confirmed 0105663539910627 Problem Type 2 diabetes mellitus with hypoglycemia without coma, unspecified whether terminal clerk insulin use (E11.649) Active confirmed 36093804 Problem Parkinson's disease, unspecified whether dyskinesia present, unspecified whether manifestations fluctuate (G20.A1) Active confirmed 68403588 VITAL SIGNS Heart Rate 82 /min 04/17/2024 Blood pressure diastolic 68 mm Hg 04/17/2024 Height 66 in 04/17/2024 Blood pressure systolic 134 mm Hg 04/17/2024 Weight 249 lbs 04/17/2024 BMI 40.19 kg/m2 04/17/2024 Encounters Encounter Location Date Provider Diagnosis [facility] [address] [place], [place] [id number] 10/17/2023 Ricky [place] Essential hypertensi on I10 ; Mixed hyperlipidemia E78.2 ; Hypertriglyceridemia E78.1 and Generalized anxiety disorder F41.1 [facility] [address] [place], [place] [id number] 10/18/2023 Ricky [place] Type 2 diabetes nicol itus with mild nonproliferative diabetic retinopathy without macular edema, unspecified eye E11.3299 [facility] [address] [place], [place] [id number] 10/18/2023 Ricky [place] [facility] [address] [place], [place] [id number] 11/10/2023 Ricky [place] [facility] [address] [place], [place] [id number] 11/10/2023 Ricky [place] [facility] [address] [place], [place] [id number] 11/14/2023 Ricky [place] Hypoglycemia associa cheo with diabetes E11.649 [facility] [address] [place], [place] [id number] 01/19/2024 Ricky [place] [facility] [address] [place], [place] [id number] 04/17/2024 Ricky [place] Essential hypertensi on I10 ; Hyperlipidemia, unspecified hyperlipidemia type E78.5 ; Depressive disorder F32.9 ; Generalized anxiety disorder F41.1 ; Encounter for immunization Z23 and Parkinson's disease, unspecified whether dyskinesia present, unspecified whether manifestations fluctuate G20.A1 ASSESSMENTS Encounter Date Diagnosis Assessment Notes Treatment Notes Treatment Clinical Notes 10/17/2023 Essential hypertensi on (ICD-10 - I10) 10/17/2023 Mixed hyperlipidemia (ICD-10 - E78.2) 10/18/2023 Type 2 diabetes nicol itus with mild nonproliferative diabetic retinopathy without macular edema, unspecified eye (ICD-10 - E11.3299) 11/14/2023 Hypoglycemia associa cheo with diabetes (ICD-10 - E11.649) Low blood sugars have resolved. Patient needs to start CGM due to repeated low blood sugar episodes with multiple daily insulin injections 04/17/2024 Essential hypertensi on (ICD-10 - I10) 04/17/2024 Hyperlipidemia, unspecified hyperlipidemia type (ICD-10 - E78.5) 04/17/2024 Depressive disorder (ICD-10 - F32.9) 10/17/2023 Hypertriglyceridemia (ICD-10 - E78.1) 10/17/2023 Generalized anxiety disorder (ICD-10 - F41.1) 04/17/2024 Generalized anxiety disorder (ICD-10 - F41.1) 04/17/2024 Encounter for immuni zation (ICD-10 - Z23) 04/17/2024 Parkinson's disease, unspecified whether dyskinesia present, unspecified whether manifestations fluctuate (ICD-10 - G20.A1) 04/17/2024 Other Notes and results from Endo and Neurology reviewed in office today PLAN OF TREATMENT Next Appt Details Provider Name:Ricky Chaudhary ry, 10/11/2024 09:15:00 AM, [address], [address], [place], [place], [id number], Insurance Providers Payer Name Payer Address Payer Phone Subscriber Number Group Number Insured Name Patient Relationship to Insured Coverage Start Date Coverage End Date MEDICARE PART B [address] [address] [place] [address] [phone] [id number] LILY BRIDGES Self - patient is the insured [facility] [address] [place] [phone] [id number] LILY BRIDGES Self - patient is the insured MEDICATIONS ADMINISTERED Medication Instructions Date of Administration Dosage Notes B-12 01/22/2021 1 mL B-12 02/19/2021 1 mL MEDICAL (GENERAL) HISTORY Medical History History ICD Code Type 2 Diabetes, [place] [facility] Hyperlipidemia Hypertension Hypertriglyceridemia LT Leg Venous Stasis Depression Declared Disabled, 2011 LT Foot Extensive Celluitis, [facility] tist 2013 LT Breast Cancer, s/p Lumpectomy- Radiat ion, 2014 DKA and multi Drug Resisitant E.Coli UTI , 08/2014 LT Carpal Tunnel Syndrome, s/p Surgery 2 016 Surgical History Surgery Date(Month/Year) LT Leg Skin Grafts Carpal Tunnel Release 07/2015 Cholecystectomy 08/16/2016 Hospitalization History Reason Date(Month/Year) Congestion- [facility] ER 07/2010 Dehydration, UTI, DKA- [facility] 08/2014 Gallbladder Attack - [facility] 08/16- MKA- [facility] 10/09- Cellulitis- [facility] 01/07-06/2019
--- NOTE | 2024-05-13 09:08 | P.PN_ITS ---
Subjective *Date: 05/13/24 *Time: 09:08 Interval history: Patient admitted overnight after falling 3 times at home yesterday. Spoke with hospitalist, Dr. Salgado. Medical Exam Vital signs and Labs for Last 24 Hours: Vital Signs Temp Pulse Pulse Resp BP BP Pulse Ox 05/13/24 06:44 05/13/24 05:00 05/13/24 03:43 05/13/24 03:26 97.8 F 86 18 159/72 H 94 L 05/13/24 03:00 05/13/24 02:59 97.9 F 92 H 18 162/84 H 05/13/24 02:31 167/91 H 05/13/24 02:22 98 H 94 L 05/13/24 02:01 96 H 168/81 H 93 L 05/13/24 01:45 94 H 148/74 H 95 05/13/24 01:04 94 H 127/61 94 L 05/13/24 00:31 95 H 133/61 92 L 05/12/24 23:31 102 H 141/64 H 92 L 05/12/24 23:01 99 H 139/58 L 92 L 05/12/24 22:30 98 H 130/64 91 L 05/12/24 22:24 99.9 F H 99 H 16 103/66 L 92 L O2 Del Method 05/13/24 06:44 Room Air 05/13/24 05:00 Room Air 05/13/24 03:43 Room Air 05/13/24 03:26 Room Air 05/13/24 03:00 Room Air 05/13/24 02:59 Room Air 05/13/24 02:31 05/13/24 02:22 05/13/24 02:01 05/13/24 01:45 05/13/24 01:04 05/13/24 00:31 05/12/24 23:31 05/12/24 23:01 05/12/24 22:30 05/12/24 22:24 Room Air Intake and Output 05/12/24 05/13/24 05/13/24 23:59 07:59 15:59 Intake Total 50 / 50 Output Total 0 / 0 Balance 0 / 50 50 / 50 Intake: Intake, Oral Amount 50 / 50 Output: Output, Urine Amount 0 / 0 Other: Number of Unmeasured Voids 1 Weight 250 lb 247 lb 8 oz Patient Weight 05/13/24 23:59 Weight 247 lb 8 oz Laboratory Results - last 24 hr 05/12/24 22:00: HIV 1&2 Antibody Rapid Nonreactive 05/12/24 22:20: WBC 12.0 H, RBC 4.57, Hgb 13.5, Hct 40.1, MCV 87.7, MCH 29.6, MCHC 33.8, RDW 14.2, Plt Count 122 L, MPV 10.5 H, Neut % (Auto) 84.0 H, Lymph % (Auto) 8.7 L, [place] % (Auto) 5.8, Eos % (Auto) 1.1, Baso % (Auto) 0.4, Neut # (Auto) 10.1 H, Lymph # (Auto) 1.0, [place] # (Auto) 0.7, Eos # (Auto) 0.1, Baso # (Auto) 0.1, PT 12.4, INR 1.12 H, APTT 25.4, Sodium 135 L, Potassium 4.1, Chloride 103, Carbon Dioxide 21 L, Anion Gap 15.1 H, BUN 27 H, Creatinine 0.80, Estimated Creat Clear 100, Estimated GFR 72, Est GFR ( Amer) 87, Glucose 301 H, Calcium 9.6, Phosphorus 2.6, Magnesium 1.3 L, Total Bilirubin 0.8, AST 28, ALT 31, Alkaline Phosphatase 54, Total Creatine Kinase 111, C-Reactive Protein 128.1 H, Total Protein 7.0, Albumin 4.0, Globulin 3.0, Albumin/Globulin Ratio 1.3, Procalcitonin 0.100, TSH 3.18, Thyroxine (T4) 5.8 05/13/24 00:05: Urine Color Dark yellow, Urine Appearance Slightly cloudy, Urine pH 6.0, Ur Specific [place] >= 1.030, Urine Protein 1+ A, Urine Glucose (UA) 1+, Urine Ketones Trace, Urine Blood Negative, Urine Nitrate Positive, Urine Bilirubin Negative, Urine Urobilinogen 1.0, Ur Leukocyte Esterase Negative, Urine RBC None, Urine WBC 5-10, Ur Squamous Epith Cells 3-5, Urine Bacteria 1+ 05/13/24 00:14: Lactate 1.1 05/13/24 06:10: WBC 12.1 H, RBC 4.24, Hgb 12.8, Hct 37.9, MCV 89.2, MCH 30.2, MCHC 33.9, RDW 14.1, Plt Count 171 D, MPV 9.9, Neut % (Auto) 80.6 H, Lymph % (Auto) 13.6, [place] % (Auto) 4.2, Eos % (Auto) 1.2, Baso % (Auto) 0.4, Neut # (Auto) 9.8 H, Lymph # (Auto) 1.7, [place] # (Auto) 0.5, Eos # (Auto) 0.1, Baso # (Auto) 0.0, Sodium 136, Potassium 3.9, Chloride 103, Carbon Dioxide 24, Anion Gap 12.9, BUN 25 H, Creatinine 0.70, Estimated Creat Clear 99, Estimated GFR 84, Est GFR ( Amer) 102, Glucose 237 H D, Calcium 9.3, Magnesium 1.7 D, Total Bilirubin 0.8, AST 36 D, ALT 27, Alkaline Phosphatase 45, Total Protein 6.8, Albumin 3.8, Globulin 3.0, Albumin/Globulin Ratio 1.3 I & O for Labs for Last 24 Hours: Intake & Output 05/10/24 05/11/24 05/12/24 05/13/24 23:59 23:59 23:59 23:59 Intake Total 50 / 50 Output Total 0 / 0 Balance 50 / 50 Weight 250 lb 247 lb 8 oz Constitutional: Present no acute distress Respiratory: Present normal respiratory effort Cardiac: Present Reg Rate and Rhythm GI: Present normal bowel sounds; Absent tenderness Extremities: Present edema (both legs) Comment:: tremor at rest in right hand Assessment and Plan *Assessment and plan (1) Urinary tract infection: Status: Acute Qualifiers: Urinary tract infection type: acute cystitis Hematuria presence: without hematuria Qualified Code(s): N30.00 - Acute cystitis without hematuria Category: Medical Code(s): N39.0 - Urinary tract infection, site not specified (2) WILLAM (acute kidney injury): Status: Acute Category: Medical Code(s): N17.9 - Acute kidney failure, unspecified (3) Fall: Status: Acute Qualifiers: Encounter type: initial encounter Qualified Code(s): W19.XXXA - Unspecified fall, initial encounter Category: Medical Code(s): W19.XXXA - Unspecified fall, initial encounter (4) Dizziness: Status: Acute Category: Medical Code(s): R42 - Dizziness and giddiness (5) Parkinsonian syndrome: Problem Comment: Parkinsonian syndrome Status: Suspected Qualifiers: 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 Qualified Code(s): 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 Category: Medical Code(s): G20 - Parkinson's disease (6) Depression: Status: Acute Qualifiers: Depression Type: major depressive disorder Major depression recurrence: unspecified whether recurrent Active/Remission status: remission status unspecified Qualified Code(s): F32.9 - Major depressive disorder, single episode, unspecified Category: Medical Code(s): F32.A - Depression, unspecified (7) Diabetes type 2, uncontrolled: Status: Chronic Qualifiers: Glycemic state: with hyperglycemia Qualified Code(s): E11.65 - Type 2 diabetes mellitus with hyperglycemia Category: Medical Code(s): E11.65 - Type 2 diabetes mellitus with hyperglycemia (8) Long-term insulin use: Status: Acute Category: Medical Code(s): Z79.4 - predatory animal exterminator (current) use of insulin (9) Morbid obesity with body mass index (BMI) of 40.0 to 44.9 in adult: Status: Acute Category: Medical Code(s): E66.01 - Morbid (severe) obesity due to excess calories; Z68.41 - Body mass index [BMI] 40.0-44.9, adult (10) BMI 40.0-44.9, adult: Status: Chronic Category: Medical Code(s): Z68.41 - Body mass index [BMI] 40.0-44.9, adult (11) Recurrent major depression resistant to treatment: Status: Acute Category: Medical Code(s): F33.9 - Major depressive disorder, recurrent, unspecified (12) Edema of right lower leg due to peripheral venous insufficiency: Status: Acute Category: Medical Code(s): I87.2 - Venous insufficiency (chronic) (peripheral); R60.0 - Localized edema Plan Continue treatment for UTI, await PT and OT evaluations, monitor labs.
[2024-05-13] MEDS: 0.9 % SODIUM CHLORIDE 1000ML 1,000 ML 200 ML IV (09:11)
[2024-05-13] MEDS: ASPIRIN EC 81MG TABLET 81 MG PO (09:11)
[2024-05-13] MEDS: CARBIDOPA/LEVODOPA CR 50/200MG TABLET 1 EACH PO ×4 (09:11→21:48)
[2024-05-13] MEDS: DULOXETINE 30MG CAPSULE.DR 90 MG PO (09:12)
[2024-05-13] MEDS: FENOFIBRATE 134MG CAPSULE 134 MG PO (09:12)
[2024-05-13] MEDS: INSULIN GLARGINE 100 UNITS/ML 10ML VIAL 50 UNIT SUBCUT ×2 (09:12→21:48)
[2024-05-13] MEDS: FLUOXETINE 20MG CAPSULE 40 MG PO (09:12)
[2024-05-13] MEDS: METFORMIN 500MG TABLET 1000 MG PO ×2 (09:13→17:14)
[2024-05-13] MEDS: LISINOPRIL 20MG TABLET 20 MG PO (09:13)
[2024-05-13] MEDS: METOPROLOL SUCCINATE XL 50MG TABLET 50 MG PO (09:13)
[2024-05-13 09:33] LABS: Hemoglobin A1C 8.1 % (4.0-6.0)
--- NOTE | 2024-05-13 09:42 | HMH.PTEV ---
Physical Therapy Evaluation Rehab PT IP Evaluation Start: 05/13/24 03:51 Freq: ONCE Status: Active Protocol: Document 05/13/24 09:31 KAIDEN (Rec: 05/13/24 09:40 KAIDEN [id number]) Subjective/History History History Per H&P: This 64-year-old female patient with Parkinson. The patient who has had Parkinson's for quite some time with major depression. Has fallen 3 times at home requiring EMS to come to be able to help her up.. I was told after the third fall they brought her to the emergency room. I have talked with the ER provider and she is told me she has done a complete workup finding no significant physical injury there besides a few small abrasion to lips and side of head.. That there is a mild urinary tract infection, patient has received first dose of Rocephin in the emergency room ... Subjective Subjective Pt pleasantly agreeable to PT evaluation. Pt greeted seated in recliner. PLOF: IND with mobility without use of AD. Pt owns a RW and cane but reports she usually does not use an AD though she knows it is recommended. Pt intermittently driving short distances. Home: Lives in a single-story home with ramped entrance. Has an easy step in shower with a seat. Regular toilet seat and regular twin sized bed without rails. Available assistance: Pt lives with her who she reports is able to be around 24/7 for assistance as needed. Pt reports he is able to physically assist with most tasks but is unable to pick her up from floor if she falls . New diagnosis of cancer in past 12 No months? Rehab PT IP Eval Objective Appearance Patient Behavior Appropriate,Cooperative Patient Orientation Person,Situation Difficulty following instructions none Speech Pattern Clear Ambulation Patient Able to Ambulate Yes Ambulation Observation IP General Gait Pattern Observation Wide Based Gait Ambulation Distance (feet) 35 Ambulation Assistive Device Rolling Walker Ambulation Ability Contact Guard/Hand Hold Balance Ability to Arise Able, uses arms to help Sitting Balance Steady, safe Standing Balance Unsteady Dynamic Sitting Balance Ability Good Dynamic Standing Balance Ability Fair Transfers Bed Transfer Ability Minimal x 1 (25% assist) Sit to Stand Bed Transfer Ability Contact Guard/Hand Hold Rehab PT IP prob,goals,plan Problems Date of Evaluation: 05/13/24 PT IP Problems Bed Mobility,Transfers,Gait, Balance,Safety Rehab Potential Rehab Potential Good Plan PT Intervention Plan Bed Mobility,Transfers,Gait, Balance,Safety,Therapeutic Exercise Other Intervention Plan 1-2 times PT Plan Frequency Daily Duration LOS Discharge Goals Sit to Stand Chair Transfer Ability Contact Guard/Hand Hold Ambulation Distance (feet) 50 Discharge Plan PT Discharge Plan Initial physical therapy evaluation performed. Patient presents below baseline at this time in functional mobility, transfers, gait, and strength. Pt would benefit from skilled PT while at [facility] to prevent further functional decline and maximize safety with mobility. PT recommending d/c home when deemed medically necessary d/t current level of mobility, home set-up, and family support. Pt does have impaired static and dynamic standing balance so PT recommending pt use RW with 's assistance/supervision for all mobility at this time. PT recommending outpatient PT services to address balance and strength deficits. Eval Complexity Eval Charge Codes 53274 - Moderate Complexity PHYSICIAN CERTIFICATION: I certify the specified therapy services for Emiliana Painter are required, authorized, and reviewed every 30 days.
--- NOTE | 2024-05-13 10:17 | SW/DCPLANNER ---
Addendum entered by [facility] 05/20/24 08:13: Per Kala Whaley patient is able to admit SNF level of care once medically stable for discharge. Kala stated they will have a wound VAC ready for this patient at their facility. Addendum entered by [facility] 05/17/24 09:02: I have updated Kala Whaley that per MD patient may not be ready for discharge till Monday due to waiting on culture results. Addendum entered by [facility] 05/16/24 14:16: Kala Whaley stated that she can accept this patient SNF level of care once medically stable for discharge. Addendum entered by [facility] 05/16/24 11:49: Patient's is at bedside and is agreeable to placement at [place]. Kala Whaley is currently reviewing information. Addendum entered by [facility] 05/16/24 09:24: Due to IV antibiotics, wound vac and non weight bearing status patient will need SNF at time of discharge. MD discussed SNF w/ brooke this AM and she is agreeable at this time. I did try to contact her regarding placement: no answer at this time. Patient is agreeable to placement at local facilities in [place]. Patient information has been faxed to Kala Whaley. I am waiting to hear back from [facility] and [facility] does not currently have any beds available. Discharge date is unknown at this time. I will continue to follow up. Addendum entered by [facility] 05/15/24 10:05: I spoke w/ brooke this AM regarding plans once medically stable for discharge. Patient continues to be agreeable to outpatient PT at [facility] at time of discharge. Patient is scheduled for outpatient PT tomorrow 05/16: I will assist patient w/ rescheduling if still admitted. Discharge date is unknown at this time. I will continue to follow up w/ brooke and MD. Original Note: I spoke w/ this patient regarding plans at time of discharge. PT/OT evaluated patient and recommended returning to [facility] for outpatient services. Patient is agreeable to outpatient (preferred over home health) and does have a rolling walker at home. Patient will be scheduled for outpatient PT services at time of discharge. Discharge date is unknown at this time.
--- NOTE | 2024-05-13 10:23 | HMH.OTEV ---
OT Inpatient Evaluation Rehab OT IP Evaluation Start: 05/13/24 03:51 Freq: ONCE Status: Active Protocol: Document 05/13/24 10:10 NEYDA (Rec: 05/13/24 10:23 NEYDA [id number]) Rehab OT IP Assessment Subjective History This 64-year-old female patient with Parkinson. The patient who has had Parkinson' s for quite some time with major depression. Has fallen 3 times at home requiring EMS to come to be able to help her up.. I was told after the third fall they brought her to the emergency room. I have talked with the ER provider and she is told me she has done a complete workup finding no significant physical injury there besides a few small abrasion to lips and side of head.. That there is a mild urinary tract infection , patient has received first dose of Rocephin in the emergency room. I have agreed to except the patient and will place her on the floor due to her being a danger with her new onset of falling. The patient states that normally she uses a cane in the house, or sometimes a walker. She does not know why she is falling she just feels terribly dizzy and then she goes down. She stated she does not feel any weaker than she normally feels. I personally evaluated the imaging and see that there is no significant findings. Going over her labs note that she is low on magnesium that has been replaced in the emergency room and that she has a mild urinary tract infection with positive nitrites and a few WBCs. Have gone through the records and I found that they have been changing her medicines recently due to severe depression. Patient saw the neurologist and carbidopa was changed from a short acting to a long-acting on 03 06 she also was then started on a medication rexalit and had that increased on . Return to the office and also had increased on 05/03/24,. Noting that one of the side effects is dizziness. .I do feel that the patient needs to be admitted tonight for personal safety to evaluate the ability for self- care and ambulatio treat the urinary tract infection have her evaluated by physical therapy to determine if the patient can safely be released back home without having rehabilitation of some type. Patient lives in 1 story home with . Ramp to enter. Independent with ADLs and fx'l mobility prior to hospitalization. Subjective Instructed Patient on safety awareness to complete bed mobility, transfers and LB drsg. Patient completed all tasks with CGA/Min A. LOB noted x1 when attempting to 180 turn to return back to bed with usage of RW. OT assisted patient when off balance. Left Patient sitting upright in bed with needs met at end of session. Objective Patient Orientation Person,Age,Year Right Upper Extremity Gross ROM WFL Left Upper Extremity Gross ROM WFL Bed Mobility bed mobility - supine/sit Assist Level Supervision/Stand by Transfer Training Sit/Stand/Pivot Transfer Assist Level Contact Guard/Hand Hold Chair Transfer Ability Contact Guard/Hand Hold Lower Body Dressing Ability Contact Guard Rehab OT IP prob,goals,plan Problems Date of Evaluation: 05/13/24 OT IP Problems Bed Mobility,Transfers,Balance ,Self care,Safety Rehab Potential Rehab Potential Good Plan OT intervention Plan Bed Mobility,Transfers,Balance ,Self care,Safety,Therapeutic Exercise OT Plan Frequency Daily Duration LOS Discharge Goals Bed Mobility Ability Assistance x1 Sit to Stand Chair Transfer Ability Contact Guard/Hand Hold Chair Transfer Ability Contact Guard/Hand Hold Discharge Plan OT Discharge Plan Recommend OP therapy services after medical d/c. Patient to continue skilled OT IP services where admitted to [facility] . Eval Complexity Eval Charge Codes 53909 - Low Complexity PHYSICIAN CERTIFICATION: I certify the specified therapy services for Emiliana Painter are required, authorized, and reviewed every 30 days.
[2024-05-13] MEDS: MAGNESIUM SULFATE IN WATER 2 GM/50 ML PIGGYBACK IV ×2 (11:48→13:02)
[2024-05-13 16:17] LABS: POC Glucose,Bedside 237 (70-110)
[2024-05-13 16:37] LABS: POC Glucose,Bedside 213 (70-110)
[2024-05-13 20:56] LABS: POC Glucose,Bedside 158 (70-110)
[2024-05-13] MEDS: ATORVASTATIN 20MG TABLET 20 MG PO (21:48)
[2024-05-13] MEDS: PANTOPRAZOLE 40MG TABLET 40 MG PO (21:48)
[2024-05-13] MEDS: ACETAMINOPHEN 325MG TAB 650 MG PO (21:49)
[2024-05-13] MEDS: ONDANSETRON 4MG/2ML VIAL 4 MG IV (22:00)
[2024-05-14] VITALS (7 sets, daily range): BP systolic 112–136; BP diastolic 52–96; PULSE 72–96; RESP 17–22; TEMP 36.8–37.8; O2SAT 92–98; BMI 39.4
[2024-05-14] MEDS: ACETAMINOPHEN 325MG TAB 650 MG PO (02:50)
--- NOTE | 2024-05-14 02:55 | PC.NURSE ---
At 0235 I heard patients bed alarm going off and patient yelling Please help me. This nurse and tech (Gerry Gregory) entered patients room to find patient lying face down on the floor beside her bed. Patient was found to have a bleeding nose, pressure was applied while gathering coworkers to help get patient out of floor. I asked the patient what happened and how she fell out of the bed. I was told by patient that she heard her call light drop to the floor and she tried to lean over the side of the bed to grab her call light and she fell out of the bed - face down. Patient was moved to wheelchair by this nurse and coworkers (Gerry Gregory, Mary Lou Ferris, Ashley Valdez, and Tereza Campos). Completed head-to-toe assessment, including neuro checks. Obtained/documented stable vital signs. Paged Dr Jones to notify him of patient fall at 0235, spoke with him at 0239. Advised him patient was only complaining of nose pain, currently trying to get nose to stop bleeding. Was given orders to continue neuro checks, ice pack to the nose and that he would assess the patient this AM when he rounds. Patient transitioned back into bed, administered Acetaminophen per MAR for pain to the nose. Patient now resting comfortably with ice pack to her nose and bleeding has stopped.
[2024-05-14 02:57] LABS: POC Glucose,Bedside 285 (70-110)
[2024-05-14] MEDS: METFORMIN 500MG TABLET 1000 MG PO ×2 (06:14→17:47)
--- NOTE | 2024-05-14 08:01 | EXP.ACUTE.PN ---
Subjective *Date: 05/14/24 *Time: 08:50 Interval history: Patient fell out of bed earlier this a.m. when reaching for an object on the floor and landing on her face. She did have a nosebleed which was controlled and has since ceased. She denies any aches or pains due to the fall. She states she is just not hungry and has not been eating well. Bowels have not moved. She thinks she is voiding okay. She denies chest pain and shortness of breath. Physical therapy and Occupational Therapy worked with her yesterday and note reviewed. She was able to walk in the room with a walker. Medical Exam Vital signs and Labs for Last 24 Hours: Vital Signs Temp Pulse Resp BP Pulse Ox O2 Del Method 05/14/24 06:53 Room Air 05/14/24 05:00 Room Air 05/14/24 04:00 98.9 F 83 17 129/64 93 L Room Air 05/14/24 03:00 Room Air 05/14/24 02:40 Room Air 05/14/24 02:30 86 18 128/54 L 98 Room Air 05/14/24 01:00 Room Air 05/14/24 00:00 98.2 F 96 H 18 132/64 95 Room Air 05/13/24 23:00 Room Air 05/13/24 21:48 Room Air 05/13/24 21:00 Room Air 05/13/24 18:38 Room Air 05/13/24 16:57 Room Air 05/13/24 16:00 98.5 F 91 H 18 123/55 L 97 Room Air 05/13/24 15:00 Room Air 05/13/24 12:41 Room Air 05/13/24 11:00 Room Air 05/13/24 09:00 Room Air Intake and Output 05/13/24 05/14/24 05/14/24 19:59 03:59 11:59 Intake Total 1250 / 1250 Output Total 0 / 0 0 / 0 Balance 1250 / 1250 0 / 1250 Intake: Intake, Oral Amount 600 / 600 Intake, Total IV Amount 650 / 650 0.9 % Sodium Chloride 1000ML 1, 650 / 650 000 ml @ 200 mls/hr IV .Q5H [facility] Rx#:[id number] Output: Output, Urine Amount 0 / 0 0 / 0 Other: Number of Unmeasured Voids 1 1 Weight 245 lb 6.4 oz Patient Weight 05/14/24 11:59 Weight 245 lb 6.4 oz Laboratory Results - last 24 hr 05/13/24 05:37: POC Glucose 285 H 05/13/24 06:10: Hemoglobin A1c 8.1 H 05/13/24 11:10: POC Glucose 237 H 05/13/24 16:21: POC Glucose 213 H 05/13/24 20:30: POC Glucose 158 H I & O for Labs for Last 24 Hours: Intake & Output 05/11/24 05/12/24 05/13/24 05/14/24 11:59 11:59 11:59 11:59 Intake Total 1100 / 1100 1250 / 1250 Output Total 0 / 0 0 / 0 Balance 1100 / 1100 1250 / 1250 Weight 247 lb 8 oz 245 lb 6.4 oz Constitutional: Present no acute distress Respiratory: Present CTA bilaterally Cardiac: Present Reg Rate and Rhythm GI: Present normal bowel sounds and other (Obese); Absent tenderness or guarding Extremities: Absent edema or calf tenderness Comment:: Abrasion on upper lip Neuro: Present alert and oriented x 3 Comment:: Speech is slow Assessment and Plan *Assessment and plan (1) Urinary tract infection: Status: Acute Qualifiers: Hematuria presence: without hematuria Urinary tract infection type: acute cystitis Qualified Code(s): N30.00 - Acute cystitis without hematuria Category: Medical Code(s): N39.0 - Urinary tract infection, site not specified (2) WILLAM (acute kidney injury): Status: Acute Category: Medical Code(s): N17.9 - Acute kidney failure, unspecified (3) Fall: Status: Acute Qualifiers: Encounter type: initial encounter Qualified Code(s): W19.XXXA - Unspecified fall, initial encounter Category: Medical Code(s): W19.XXXA - Unspecified fall, initial encounter (4) Dizziness: Status: Acute Category: Medical Code(s): R42 - Dizziness and giddiness (5) Parkinsonian syndrome: Problem Comment: Parkinsonian syndrome Status: Suspected Qualifiers: 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 Qualified Code(s): 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 Category: Medical Code(s): G20 - Parkinson's disease (6) Depression: Status: Acute Qualifiers: Active/Remission status: remission status unspecified Depression Type: major depressive disorder Major depression recurrence: unspecified whether recurrent Qualified Code(s): F32.9 - Major depressive disorder, single episode, unspecified Category: Medical Code(s): F32.A - Depression, unspecified (7) Diabetes type 2, uncontrolled: Status: Chronic Qualifiers: Glycemic state: with hyperglycemia Qualified Code(s): E11.65 - Type 2 diabetes mellitus with hyperglycemia Category: Medical Code(s): E11.65 - Type 2 diabetes mellitus with hyperglycemia (8) Long-term insulin use: Status: Acute Category: Medical Code(s): Z79.4 - FPC (current) use of insulin (9) Morbid obesity with body mass index (BMI) of 40.0 to 44.9 in adult: Status: Acute Category: Medical Code(s): E66.01 - Morbid (severe) obesity due to excess calories; Z68.41 - Body mass index [BMI] 40.0-44.9, adult (10) BMI 40.0-44.9, adult: Status: Chronic Category: Medical Code(s): Z68.41 - Body mass index [BMI] 40.0-44.9, adult (11) Recurrent major depression resistant to treatment: Status: Acute Category: Medical Code(s): F33.9 - Major depressive disorder, recurrent, unspecified (12) Edema of right lower leg due to peripheral venous insufficiency: Status: Acute Category: Medical Code(s): I87.2 - Venous insufficiency (chronic) (peripheral); R60.0 - Localized edema Plan Urine cultures pending. Patient is ready for discharge. Dr. Jones entry - Saw patient, she is sitting in a chair now, will come back and evaluate later today for possible discharge home.
[2024-05-14] MEDS: INSULIN GLARGINE 100 UNITS/ML 10ML VIAL 50 UNIT SUBCUT ×2 (08:48→21:17)
[2024-05-14] MEDS: FLUOXETINE 20MG CAPSULE 40 MG PO (08:49)
[2024-05-14] MEDS: CEFTRIAXONE 1 GM 1 GM in 0.9 % SODIUM CHLORIDE 50 ML IV (08:49)
[2024-05-14] MEDS: FENOFIBRATE 134MG CAPSULE 134 MG PO (08:50)
[2024-05-14] MEDS: LISINOPRIL 20MG TABLET 20 MG PO (08:50)
[2024-05-14] MEDS: CARBIDOPA/LEVODOPA CR 50/200MG TABLET 1 EACH PO ×4 (08:50→21:17)
[2024-05-14] MEDS: ASPIRIN EC 81MG TABLET 81 MG PO (08:50)
[2024-05-14] MEDS: DULOXETINE 30MG CAPSULE.DR 90 MG PO (08:50)
[2024-05-14] MEDS: METOPROLOL SUCCINATE XL 50MG TABLET 50 MG PO (08:51)
[2024-05-14 09:22] LABS: HCV Ab Non Reactive (Non Reactive)
[2024-05-14 11:00] LABS: POC Glucose,Bedside 133 (70-110)
[2024-05-14] MEDS: humaLOG 100 UNITS/ML 10ML VIAL (SSI) SUBCUT (16:31)
--- NOTE | 2024-05-14 16:35 | PC.NURSE ---
pt has remained alert and oriented x4 this shift. pt has been educated managing consultant light usage. pt has been ambulating to and from bathroom w/ walker x1 assistance. pt has had no complaints today. pt explained to MD that she felt she needed more PT/OT before she felt safe to go home. pt has minimal bruising around her nose where pt fell out of bed last night. pt denies pain. no new orders at this time, call light within reach and bed alarm on.
[2024-05-14 16:38] LABS: POC Glucose,Bedside 158 (70-110)
[2024-05-14] MEDS: PANTOPRAZOLE 40MG TABLET 40 MG PO (21:17)
[2024-05-14] MEDS: ATORVASTATIN 20MG TABLET 20 MG PO (21:17)
[2024-05-14 21:44] LABS: POC Glucose,Bedside 141 (70-110)
[2024-05-15] VITALS (17 sets, daily range): BP systolic 110–174; BP diastolic 55–79; PULSE 82–95; RESP 14–20; TEMP 36.4–37.2; O2SAT 91–98; BMI 39.3
--- NOTE | 2024-05-15 01:06 | PC.NURSE ---
patients right foot is red and warm from the l[place] to the toe, between the 4th and 5th toe is bloody, inferior and superior part of the outer foot has large pus pockets that are beginning to drain. wound culture sent to lab.
[2024-05-15 07:12] LABS: Basophils # 0.1 K/mm3 (0-0.2); Basophils % 0.6 % (0.1-2.0); Eosinophils # 0.4 K/mm3 (0.0-0.4); Eosinophils % 3.4 % (0.1-12.0); Hematocrit 34.9 % (37.0-47.0); Hemoglobin 11.9 g/dL (12.2-16.2); Lymphocytes # 1.5 K/mm3 (0.7-4.5); Lymphocytes % 12.4 % (10-50); Mean Corpuscular Hemoglobin 30.2 pg (27.0-31.2); Mean Corpuscular Volume 88.8 fl (81-99); Monocytes # 0.7 K/mm3 (0.1-1.0); Monocytes % 5.5 % (1.7-9.3); Neutrophils # 9.1 K/mm3 (1.8-7.8); Platelet Count 195 K/mm3 (142-424); Red Blood Count 3.93 M/mm3 (4.20-5.40); Red Cell Distribution Width 14.1 % (11.5-17.5); White Blood Count 11.7 K/mm3 (4.8-10.8)
[2024-05-15 07:35] LABS: Anion Gap 14.1 mEq/L (5-15); Blood Urea Nitrogen 25 mg/dl (7-17); Calcium 8.7 mg/dl (8.4-10.2); Carbon Dioxide 22 mmol/L (22.0-30.0); Chloride 106 mmol/L (98-107); Creatinine Clearance Estimated 99 mL/min (50-200); Estimated Glomerular Filt Rate 100 ml/min (>60); GFR (African American) 121 ML/MIN (>60); Glucose 92 mg/dl (74-100); Potassium 4.1 mmoL/L (3.5-5.1); Sodium 138 mmol/L (136-145)
--- NOTE | 2024-05-15 08:13 | PC.NURSE ---
EVERETT WEIR SAW PT'S FOOT. SHE STATED SHE WAS GOING TO CONSULT PODIATRY.
--- NOTE | 2024-05-15 08:16 | EXP.ACUTE.PN ---
Subjective *Date: 05/15/24 *Time: 08:32 Interval history: Patient is feeling about the same today. She is having pain in her right foot and states it has been draining on the bed. She denies any other pain. She was able to eat this am and denies any nausea. Still very weak. Medical Exam Vital signs and Labs for Last 24 Hours: Vital Signs Temp Pulse Resp BP Pulse Ox O2 Del Method 05/15/24 07:00 Room Air 05/15/24 05:00 Room Air 05/15/24 04:00 98.5 F 88 17 134/65 94 L Room Air 05/15/24 02:49 Room Air 05/15/24 01:00 Room Air 05/15/24 00:00 99.0 F 92 H 18 146/73 H 95 Room Air 05/14/24 22:27 Room Air 05/14/24 21:00 Room Air 05/14/24 20:00 Room Air 05/14/24 20:00 99.2 F 87 20 136/96 H 94 L Room Air 05/14/24 18:46 Room Air 05/14/24 17:00 Room Air 05/14/24 16:00 100.0 F H 88 20 126/58 L 94 L Room Air 05/14/24 15:00 Room Air 05/14/24 13:00 Room Air 05/14/24 12:00 98.8 F 90 22 112/62 98 Room Air 05/14/24 11:00 Room Air 05/14/24 09:00 Room Air Intake and Output 05/14/24 05/15/24 05/15/24 19:59 03:59 11:59 Intake Total 1060 / 1370 310 / 1370 Output Total 0 / 0 0 / 0 Balance 1060 / 1370 310 / 1370 Intake: Intake, Oral Amount 1060 / 1360 300 / 1360 Intake, Other Amount 10 / 10 Output: Output, Urine Amount 0 / 0 0 / 0 Other: Intake, Other Source Saline Solution Number of Unmeasured Voids 1 1 Weight 244 lb 14.937 oz Patient Weight 05/15/24 11:59 Weight 244 lb 14.937 oz Laboratory Results - last 24 hr 05/12/24 22:00: Hepatitis C Antibody Non reactive 05/14/24 10:47: POC Glucose 133 H 05/14/24 16:27: POC Glucose 158 H 05/14/24 21:16: POC Glucose 141 H 05/15/24 06:23: WBC 11.7 H, RBC 3.93 L, Hgb 11.9 L, Hct 34.9 L, MCV 88.8, MCH 30.2, MCHC 34.0, RDW 14.1, Plt Count 195, MPV 10.0, Neut % (Auto) 78.0, Lymph % (Auto) 12.4, Edgar % (Auto) 5.5, Eos % (Auto) 3.4, Baso % (Auto) 0.6, Neut # (Auto) 9.1 H, Lymph # (Auto) 1.5, Edgar # (Auto) 0.7, Eos # (Auto) 0.4, Baso # (Auto) 0.1, Sodium 138, Potassium 4.1, Chloride 106, Carbon Dioxide 22, Anion Gap 14.1, BUN 25 H, Creatinine 0.60, Estimated Creat Clear 99, Estimated GFR 100, Est GFR ( Amer) 121, Glucose 92, Calcium 8.7 I & O for Labs for Last 24 Hours: Intake & Output 05/12/24 05/13/24 05/14/24 05/15/24 11:59 11:59 11:59 11:59 Intake Total 1100 / 1100 1670 / 1670 1370 / 1370 Output Total 0 / 0 0 / 0 0 / 0 Balance 1100 / 1100 1670 / 1670 1370 / 1370 Weight 247 lb 8 oz 245 lb 6.4 oz 244 lb 14.937 oz Constitutional: Present no acute distress Respiratory: Present CTA bilaterally Cardiac: Present Reg Rate and Rhythm GI: Present soft; Absent distention or tenderness Extremities: Present edema Skin: Present wounds (there is a wound and swelling on the right foot between the 4th and 5th digits with erythema extending up to the mid luevano) Neuro: Present alert, awake and oriented x 3 Assessment and Plan *Assessment and plan (1) Urinary tract infection: Status: Acute Qualifiers: Hematuria presence: without hematuria Urinary tract infection type: acute cystitis Qualified Code(s): N30.00 - Acute cystitis without hematuria Category: Medical Code(s): N39.0 - Urinary tract infection, site not specified (2) WILLAM (acute kidney injury): Status: Acute Category: Medical Code(s): N17.9 - Acute kidney failure, unspecified (3) Fall: Status: Acute Qualifiers: Encounter type: initial encounter Qualified Code(s): W19.XXXA - Unspecified fall, initial encounter Category: Medical Code(s): W19.XXXA - Unspecified fall, initial encounter (4) Dizziness: Status: Acute Category: Medical Code(s): R42 - Dizziness and giddiness (5) Parkinsonian syndrome: Problem Comment: Parkinsonian syndrome Status: Suspected Qualifiers: 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 Qualified Code(s): 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 Category: Medical Code(s): G20 - Parkinson's disease (6) Depression: Status: Acute Qualifiers: Active/Remission status: remission status unspecified Depression Type: major depressive disorder Major depression recurrence: unspecified whether recurrent Qualified Code(s): F32.9 - Major depressive disorder, single episode, unspecified Category: Medical Code(s): F32.A - Depression, unspecified (7) Diabetes type 2, uncontrolled: Status: Chronic Qualifiers: Glycemic state: with hyperglycemia Qualified Code(s): E11.65 - Type 2 diabetes mellitus with hyperglycemia Category: Medical Code(s): E11.65 - Type 2 diabetes mellitus with hyperglycemia (8) Long-term insulin use: Status: Acute Category: Medical Code(s): 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 (9) Morbid obesity with body mass index (BMI) of 40.0 to 44.9 in adult: Status: Acute Category: Medical Code(s): E66.01 - Morbid (severe) obesity due to excess calories; Z68.41 - Body mass index [BMI] 40.0-44.9, adult (10) BMI 40.0-44.9, adult: Status: Chronic Category: Medical Code(s): Z68.41 - Body mass index [BMI] 40.0-44.9, adult (11) Recurrent major depression resistant to treatment: Status: Acute Category: Medical Code(s): F33.9 - Major depressive disorder, recurrent, unspecified (12) Edema of right lower leg due to peripheral venous insufficiency: Status: Acute Category: Medical Code(s): I87.2 - Venous insufficiency (chronic) (peripheral); R60.0 - Localized edema (13) Wound of right foot: Status: Acute Category: Medical Code(s): S91.301A - Unspecified open wound, right foot, initial encounter (14) Cellulitis of right leg: Status: Acute Category: Medical Code(s): L03.115 - Cellulitis of right lower limb Plan Will consult podiatry today for foot wound with cellulitis. Will likely need antibiotic change. Will discuss with Dr. Jones. Dr. Jones entry - Saw patient, agree with above note. Change to [place] today, will ask podiatry to see patient.
[2024-05-15] MEDS: CARBIDOPA/LEVODOPA CR 50/200MG TABLET 1 EACH PO ×2 (08:21→11:52)
[2024-05-15] MEDS: FENOFIBRATE 134MG CAPSULE 134 MG PO (08:21)
[2024-05-15] MEDS: LISINOPRIL 20MG TABLET 20 MG PO (08:21)
[2024-05-15] MEDS: DULOXETINE 30MG CAPSULE.DR 90 MG PO (08:21)
[2024-05-15] MEDS: METOPROLOL SUCCINATE XL 50MG TABLET 50 MG PO (08:21)
[2024-05-15] MEDS: ASPIRIN EC 81MG TABLET 81 MG PO (08:21)
[2024-05-15] MEDS: CEFTRIAXONE 1 GM 1 GM in 0.9 % SODIUM CHLORIDE 50 ML IV (08:22)
[2024-05-15] MEDS: METFORMIN 500MG TABLET 1000 MG PO (08:22)
[2024-05-15] MEDS: FLUOXETINE 20MG CAPSULE 40 MG PO (08:22)
--- NOTE | 2024-05-15 08:54 | EXP.PHA.CONS ---
Pharmacy Consult Date: 05/15/24 Time: 08:54 Referring provider: DR. PACK Reason for Consult:: VANCOMYCIN DOSING Allergies Allergy/AdvReac Type Severity Reaction Status Date / Time No Known Allergies Allergy Verified 04/15/24 11:23 Home Medications ?Medication ?Instructions ?Recorded ?Confirmed ?Type atorvastatin 20 mg tablet 20 mg PO HS High cholesterol 07/05/17 05/13/24 History gabapentin 300 mg capsule 300 mg PO TIDP PRN neuropathic pain 07/05/17 05/13/24 History meloxicam 7.5 mg tablet 7.5 mg PO DAILY 07/05/17 05/13/24 History metformin 500 mg tablet 1,000 mg PO BID Diabetes 07/05/17 05/13/24 History multivitamin 1 each PO DAILY Supplement 07/05/17 05/13/24 History L.acidoph, paracasei,B. lactis 10 1 each PO DAILY Supplement 10/09/18 05/13/24 History billion cell capsule biotin 5 mg capsule 5 mg PO BID 10/09/18 05/13/24 History calcium 600 mg (as 1 each PO BID Supplement 10/09/18 05/13/24 History carbonate)-vitamin D3 20 mcg (800 unit) tablet cinnamon bark-chromium picolinate 2 cap PO BID Supplement 10/09/18 05/13/24 History 500 mg-100 mcg capsule coenzyme Q10 100 mg capsule 100 mg PO DAILY Supplement 10/09/18 05/13/24 History krill wua-[id number]-dha-epa 300 1 each PO DAILY Supplement 10/09/18 05/13/24 History mg-90 mg (27 mg-45 mg) capsule aspirin 81 mg tablet,delayed 81 mg PO DAILY 05/09/19 05/13/24 History release (Jacki Low Dose Aspirin) fenofibrate nanocrystallized 145 145 mg PO DAILY 10/30/19 05/13/24 History mg tablet lisinopril 20 mg tablet 20 mg PO DAILY Hypertension 10/30/19 05/13/24 History metoprolol succinate 50 mg 50 mg PO DAILY 07/05/22 05/13/24 History tablet,extended release 24 hr pen needle, diabetic 31 gauge x #1,200 ea 05/24/23 05/13/24 History 3/16 (BD Ultra-Fine Mini Pen Needle) duloxetine 60 mg capsule,delayed 60 mg PO DAILY #90 caps 10/09/23 05/13/24 Rx release semaglutide 7 mg tablet (Rybelsus) 7 mg PO DAILY 11/07/23 05/13/24 History duloxetine 30 mg capsule,delayed 30 mg PO DAILY 11/08/23 05/13/24 History release fluoxetine 40 mg capsule 40 mg PO DAILY 11/08/23 05/13/24 History insulin glargine 100 unit/mL 50 unit (0.5 mL) SQ BID Diabetes 11/08/23 05/13/24 Rx subcutaneous solution #1 mL insulin aspart U-100 100 unit/mL 0 unit SQ DIRECTED Diabetes 02/22/24 05/13/24 History (3 mL) subcutaneous pen ascorbic acid (vitamin C) 1,000 mg 500 mg PO DAILY 03/06/24 05/13/24 History chewable tablet carbidopa ER 50 mg-levodopa 200 mg 1 tab PO QID Parkinsonian syndrome 03/06/24 05/13/24 Rx tablet,extended release #120 tabs lumateperone 42 mg capsule 42 mg PO DAILY 05/13/24 05/13/24 History (Caplyta) New Prescriptions to Start Prescriptions: Height: 1.68 m Weight: 111.1 kg Laboratory Results:: Laboratory Results - last 24 hr 05/12/24 22:00: Hepatitis C Antibody Non reactive 05/14/24 10:47: POC Glucose 133 H 05/14/24 16:27: POC Glucose 158 H 05/14/24 21:16: POC Glucose 141 H 05/15/24 06:23: WBC 11.7 H, RBC 3.93 L, Hgb 11.9 L, Hct 34.9 L, MCV 88.8, MCH 30.2, MCHC 34.0, RDW 14.1, Plt Count 195, MPV 10.0, Neut % (Auto) 78.0, Lymph % (Auto) 12.4, Mccreary % (Auto) 5.5, Eos % (Auto) 3.4, Baso % (Auto) 0.6, Neut # (Auto) 9.1 H, Lymph # (Auto) 1.5, Mccreary # (Auto) 0.7, Eos # (Auto) 0.4, Baso # (Auto) 0.1, Sodium 138, Potassium 4.1, Chloride 106, Carbon Dioxide 22, Anion Gap 14.1, BUN 25 H, Creatinine 0.60, Estimated Creat Clear 99, Estimated GFR 100, Est GFR ( Amer) 121, Glucose 92, Calcium 8.7 Medical History: Medical History (Updated 05/15/24 @ 08:20 by DEYVI Llanes) Depression Bilateral impacted cerumen Otitis externa of left ear Mixed hearing loss of left ear SNHL (sensorineural hearing loss) Dizziness Bilateral hearing loss Urinary tract infection Parkinson disease Osteoarthritis Diabetes mellitus, type 2 Hyperlipidemia Hypertension Breast cancer Bilateral impacted cerumen Chronic external ear infection Recurrent major depression resistant to treatment Assessment and Plan Assessment and plan all Dx Assessment and Plan for all problems:: Pharmacokinetic dosing service Objective: Patient: Floor: Age: 64 yo Serum creatinine: 0.60 mg/dL Height: 66.1 Inches Weight (kg): 111.1 Assessment: IBW (kg): 59.53 Dosing wt(kg): 111.1 Estimated Creatinine clearance (ml/min): 87.8 CRCL method: Cockcroft and Gault using ibw(default). Drug selected: Vancomycin Loading dose (mg): Vd (liters): 88.9 (factor used: 0.8 L/kg) Jared (hr-1): 0.077 Half life (hrs): 9.00 CLvanco=?? 6.845 L/hr Recommended dose: 2000 mg Interval: 12 hrs Infusion time (hrs): 2.0 Predicted peak (mcg/mL): 34.6 Predicted trough (mcg/mL): 16.02 Total body weight is being used for vancomycin dosing. Recommendations: Give Vancomycin 2000 mg q 12 hrs with an expected Cpeak of 34.6 mcg/ml and an expected Ctrough of 16.02 mcg/ml AUC 0-24 /LÁZARO Data: LÁZARO 0.5 mcg/mL:?? AUC/LÁZARO:? 1168.7 LÁZARO 1.0 mcg/mL:?? AUC/LÁZARO:? 584.4 --------- LÁZARO 1.5 mcg/mL:?? AUC/LÁZARO:? 389.6 LÁZARO 2.0 mcg/mL:?? AUC/LÁZARO:? 292.2 Thank you for the consult, will continue to follow. -[facility], ADISD
[2024-05-15] MEDS: PIPERACILLIN/TAZO 4.5 GM in 0.9 % SODIUM CHLORIDE 100 ML IV (09:54)
[2024-05-15] MEDS: INSULIN GLARGINE 100 UNITS/ML 3ML FLEXPEN 30 UNIT SUBCUT (10:05)
--- NOTE | 2024-05-15 10:24 | XR_ITS ---
FINAL REPORT CLINICAL HISTORY: RLE swelling COMPARISON: None FINDINGS: RIGHT ANKLE 3 views of the right ankle were obtained. There is no acute fracture or dislocation. The mortise is intact. There is mild degenerative change. A small plantar calcaneal spur is present. There is soft tissue swelling. IMPRESSION: Mild degenerative change and soft tissue swelling without acute bony abnormality. Reviewed, Interpreted and Dictated by Sherwin Winston III, MD Transcribed by Cara Frank Authenticated and [facility]
--- NOTE | 2024-05-15 10:24 | XR_ITS ---
FINAL REPORT CLINICAL HISTORY: RLE swelling COMPARISON: None FINDINGS: RIGHT FOOT 3 views of the right foot were obtained. There is no acute fracture or dislocation. There is mild degenerative change. Soft tissue swelling is noted. A small plantar calcaneal spur is present. IMPRESSION: Mild degenerative change and soft tissue swelling without acute bony abnormality. Reviewed, Interpreted and Dictated by Sherwin Winston III, MD Transcribed by Cara Frank Authenticated and [facility]
--- NOTE | 2024-05-15 11:23 | P.CONS_ITS ---
Documented by User: Sneha Pan, CARE PROVIDER 05/15/24 13:21 History of Present Illness *Admission Date: 05/13/24 *History of present illness: This 64-year-old female patient with Parkinson. The patient who has had Parkinson's for quite some time with major depression. Has fallen 3 times at home requiring EMS to come to be able to help her up.. I was told after the third fall they brought her to the emergency room. I have talked with the ER provider and she is told me she has done a complete workup finding no significant physical injury there besides a few small abrasion to lips and side of head.. That there is a mild urinary tract infection, patient has received first dose of Rocephin in the emergency room. I have agreed to except the patient and will place her on the floor due to her being a danger with her new onset of falling. The patient states that normally she uses a cane in the house, or sometimes a walker. She does not know why she is falling she just feels terribly dizzy and then she goes down. She stated she does not feel any weaker than she normally feels. I personally evaluated the imaging and see that there is no significant findings. Going over her labs note that she is low on magnesium that has been replaced in the emergency room and that she has a mild urinary tract infection with positive nitrites and a few WBCs. Have gone through the records and I found that they have been changing her medicines recently due to severe depression. Patient saw the neurologist and carbidopa was changed from a short acting to a long-acting on 03 06 she also was then started on a medication rexalit and had that increased on . Return to the office and also had increased on 05/03/24,. Noting that one of the side effects is dizziness. .I do feel that the patient needs to be admitted tonight for personal safety to evaluate the ability for self-care and ambulatio treat the urinary tract infection have her evaluated by physical therapy to determine if the patient can safely be released back home without having rehabilitation of some type. 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 Patient has on her right lower extremity swelling/cellulitis blistering to base of the right fourth and fifth toes. Foot and lower leg is warm to touch, patient denies feeling any pain related to underlying condition of neuropathy. Patient is unsure of how long she has had the ulceration to the right foot. [facility] Disclaimer: The information contained in this section may have been updated after the patient was seen, as this information can be updated by other users. 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 Surgical History History of tonsillectomy and adenoidectomy History of skin graft History of lumpectomy of left breast History of cholecystectomy History of lumpectomy of left breast History of carpal tunnel surgery of left wrist Hx of cholecystectomy Family History Other Cancer Coronary artery disease Diabetes Hyperlipidemia Hypertension Stroke Social History Smoking Status: Never smoker alcohol intake: never substance use type: denies use current occupational status: disabled Travel in the last 8 weeks: None household members: spouse housing: house number of children: 0 current occupational exposures/hazards: No caffeine: Yes Meds Home Medications and Allergies Home Medications ?Medication ?Instructions ?Recorded ?Confirmed ?Type atorvastatin 20 mg tablet 20 mg PO HS High cholesterol 07/05/17 05/13/24 History gabapentin 300 mg capsule 300 mg PO TIDP PRN neuropathic pain 07/05/17 05/13/24 History meloxicam 7.5 mg tablet 7.5 mg PO DAILY 07/05/17 05/13/24 History metformin 500 mg tablet 1,000 mg PO BID Diabetes 07/05/17 05/13/24 History multivitamin 1 each PO DAILY Supplement 07/05/17 05/13/24 History L.acidoph, paracasei,B. lactis 10 1 each PO DAILY Supplement 10/09/18 05/13/24 History billion cell capsule biotin 5 mg capsule 5 mg PO BID 10/09/18 05/13/24 History calcium 600 mg (as 1 each PO BID Supplement 10/09/18 05/13/24 History carbonate)-vitamin D3 20 mcg (800 unit) tablet cinnamon bark-chromium picolinate 2 cap PO BID Supplement 10/09/18 05/13/24 History 500 mg-100 mcg capsule coenzyme Q10 100 mg capsule 100 mg PO DAILY Supplement 10/09/18 05/13/24 History krill eja-regca-3-dha-epa 300 1 each PO DAILY Supplement 10/09/18 05/13/24 History mg-90 mg (27 mg-45 mg) capsule aspirin 81 mg tablet,delayed 81 mg PO DAILY 05/09/19 05/13/24 History release (Jacki Low Dose Aspirin) fenofibrate nanocrystallized 145 145 mg PO DAILY 10/30/19 05/13/24 History mg tablet lisinopril 20 mg tablet 20 mg PO DAILY Hypertension 10/30/19 05/13/24 History metoprolol succinate 50 mg 50 mg PO DAILY 07/05/22 05/13/24 History tablet,extended release 24 hr pen needle, diabetic 31 gauge x #1,200 ea 05/24/23 05/13/24 History 3/16 (BD Ultra-Fine Mini Pen Needle) duloxetine 60 mg capsule,delayed 60 mg PO DAILY #90 caps 10/09/23 05/13/24 Rx release semaglutide 7 mg tablet (Rybelsus) 7 mg PO DAILY 11/07/23 05/13/24 History duloxetine 30 mg capsule,delayed 30 mg PO DAILY 11/08/23 05/13/24 History release fluoxetine 40 mg capsule 40 mg PO DAILY 11/08/23 05/13/24 History insulin glargine 100 unit/mL 50 unit (0.5 mL) SQ BID Diabetes 11/08/23 05/13/24 Rx subcutaneous solution #1 mL insulin aspart U-100 100 unit/mL 0 unit SQ DIRECTED Diabetes 02/22/24 05/13/24 History (3 mL) subcutaneous pen ascorbic acid (vitamin C) 1,000 mg 500 mg PO DAILY 03/06/24 05/13/24 History chewable tablet carbidopa ER 50 mg-levodopa 200 mg 1 tab PO QID Parkinsonian syndrome 03/06/24 05/13/24 Rx tablet,extended release #120 tabs lumateperone 42 mg capsule 42 mg PO DAILY 05/13/24 05/13/24 History (Caplyta) New Prescriptions to Start Prescriptions: Allergies Allergy/AdvReac Type Severity Reaction Status Date / Time No Known Allergies Allergy Verified 04/15/24 11:23 Exam (Inpt) Vital signs and Labs for Last 24 Hours: Temp Pulse Resp BP Pulse Ox O2 Del Method 98.3 F 90 18 141/70 H 95 Room Air 05/15/24 08:00 05/15/24 08:00 05/15/24 08:00 05/15/24 08:00 05/15/24 08:00 05/15/24 08:39 Laboratory Results - last 24 hr 05/14/24 16:27: POC Glucose 158 H 05/14/24 21:16: POC Glucose 141 H 05/15/24 06:23: WBC 11.7 H, RBC 3.93 L, Hgb 11.9 L, Hct 34.9 L, MCV 88.8, MCH 30.2, MCHC 34.0, RDW 14.1, Plt Count 195, MPV 10.0, Neut % (Auto) 78.0, Lymph % (Auto) 12.4, Becker % (Auto) 5.5, Eos % (Auto) 3.4, Baso % (Auto) 0.6, Neut # (Auto) 9.1 H, Lymph # (Auto) 1.5, Becker # (Auto) 0.7, Eos # (Auto) 0.4, Baso # (Auto) 0.1, Sodium 138, Potassium 4.1, Chloride 106, Carbon Dioxide 22, Anion Gap 14.1, BUN 25 H, Creatinine 0.60, Estimated Creat Clear 99, Estimated GFR 100, Est GFR ( Amer) 121, Glucose 92, Calcium 8.7 I & O for Labs for Last 24 Hours: Intake & Output 05/12/24 05/13/24 05/14/24 05/15/24 23:59 23:59 23:59 23:59 Intake Total 2350 / 2350 1730 / 1730 60 / 60 Output Total 0 / 0 0 / 0 0 / 0 Balance 2350 / 2350 1730 / 1730 60 / 60 Weight 250 lb 247 lb 8 oz 245 lb 6.4 oz 244 lb 14.937 oz Constitutional: Present no acute distress and cooperative Head: Present normocephalic Eye: Present as per HPI Neck: Present trachea midline Respiratory: Present normal respiratory effort, able to speak in complete sentences and symmetric chest movement Cardiac: Present posterior tibial pulses present and pedal pulses present Comments:: deferred Rectal (female): Present deferred (female): Present deferred Extremities: Present edema (2 + pedal, LE edema, diabetic foot ulceration noted between fourth and fifth toes, ulceration does probe to bone ( 4th metatarsal)); Absent calf tenderness Comment:: 05/15/24- right foot WCX obtained, Purulent,malodorous drainage noted. Skin: Present erythema, warm and wounds (Right 4th- 5th inner space DFU-probes to bone) Neuro: Present Motor Function Intact, oriented x 3, tone normal and moves all extremities; Absent Sensory Function Intact Ankle: right: erythema (Right 2+edema, cellulitis) and right: swelling Feet/Toes: right: swelling (2+ pedal edema, ), right: tenderness (Neuropathy, no sensation noted to bilateral feet) and right: wound (R 4th-5th toes DFU ) and bilateral: hammer toe, bilateral: nail abnormalities (thick, dystrophic ) and bilateral: onychomycosis Feet Top: 2 1. R 4th-5th toes DFU ~0.3x0.3x1.0cm, ulceration opening noted between the fourth and fifth toes probing to bone (metatarsal head) purulent drainage cultured, erythema and blistering noted at the base of fourth and fifth toes, sites cleaned with Betadine and dressed with Betadine soaked gauze and Coban covering. *Surgical consent obtained at bedside right fourth and fifth toe amputation, incision and drainage, debridement of nonviable soft tissue and bone, metatarsal resection for bone biopsy. Comments:: R 4th-5th toes DFU ~0.3x0.3x1.0cm Inspection: Present foot deformity deformity: Present hammer toes, nail disorder, skin break, infection and ulceration (Right 4th-5th toe DFU, scheduled for surgery for toe amputation this afternoon. ) Pulses: L dorsalis pedis pulse: normal, R dorsalis pedis pulse: normal, L posterior tibial pulse: normal and R posterior tibial pulse: normal CFT: normal: CFT Monofilament exam: R 1st metatarsals: absent, R 3rd metatarsals: absent, R 5th metatarsals: absent, R great toe: absent, R 3rd toe: absent and R 5th toe: absent Pinprick: R great toe: abnormal Results Labs 05/15/24 06:23 05/15/24 06:23 Labs: Abnormal lab results 05/14/24 05/14/24 05/15/24 Range/Units 16:27 21:16 06:23 WBC 11.7 H (4.8-10.8) K/mm3 RBC 3.93 L (4.20-5.40) M/mm3 Hgb 11.9 L (12.2-16.2) g/dL Hct 34.9 L (37.0-47.0) % Neut # (Auto) 9.1 H (1.8-7.8) K/mm3 BUN 25 H (7-17) mg/dl POC Glucose 158 H 141 H (70-110) H & H 05/12/24 05/13/24 05/15/24 Range/Units 22:20 06:10 06:23 Hgb 13.5 12.8 11.9 L (12.2-16.2) g/dL Hct 40.1 37.9 34.9 L (37.0-47.0) % Coagulation 05/12/24 Range/Units 22:20 INR 1.12 H (0.9-1.1) All other labs normal. Assessment and Plan *Assessment and plan (1) Urinary tract infection: Status: Acute Qualifiers: Hematuria presence: without hematuria Urinary tract infection type: a cute cystitis Qualified Code(s): N30.00 - Acute cystitis without hematuria Category: Medical Code(s): N39.0 - Urinary tract infection, site not specified (2) WILLAM (acute kidney injury): Status: Acute Category: Medical Code(s): N17.9 - Acute kidney failure, unspecified (3) Fall: Status: Acute Qualifiers: Encounter type: initial encounter Qualified Code(s): W19.XXXA - Unspecified fall, initial encounter Category: Medical Code(s): W19.XXXA - Unspecified fall, initial encounter (4) Dizziness: Status: Acute Category: Medical Code(s): R42 - Dizziness and giddiness (5) Parkinsonian syndrome: Problem Comment: Parkinsonian syndrome Status: Suspected Qualifiers: 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 Qualified Code(s): 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 Category: Medical Code(s): G20 - Parkinson's disease (6) Depression: Status: Acute Qualifiers: Active/Remission status: remission status unspecified Depression Type: major depressive disorder Major depression recurrence: unspecified whether recurrent Qualified Code(s): F32.9 - Major depressive disorder, single episode, unspecified Category: Medical Code(s): F32.A - Depression, unspecified (7) Diabetes type 2, uncontrolled: Status: Chronic Qualifiers: Glycemic state: with hyperglycemia Qualified Code(s): E11.65 - Type 2 diabetes mellitus with hyperglycemia Category: Medical Code(s): E11.65 - Type 2 diabetes mellitus with hyperglycemia (8) Long-term insulin use: Status: Acute Category: Medical Code(s): Z79.4 - assistant terminal manager (current) use of insulin (9) Morbid obesity with body mass index (BMI) of 40.0 to 44.9 in adult: Status: Acute Category: Medical Code(s): E66.01 - Morbid (severe) obesity due to excess calories; Z68.41 - Body mass index [BMI] 40.0-44.9, adult (10) BMI 40.0-44.9, adult: Status: Chronic Category: Medical Code(s): Z68.41 - Body mass index [BMI] 40.0-44.9, adult (11) Recurrent major depression resistant to treatment: Status: Acute Category: Medical Code(s): F33.9 - Major depressive disorder, recurrent, unspecified (12) Edema of right lower leg due to peripheral venous insufficiency: Status: Acute Category: Medical Code(s): I87.2 - Venous insufficiency (chronic) (peripheral); R60.0 - Localized edema (13) Wound of right foot: Status: Acute Category: Medical Code(s): S91.301A - Unspecified open wound, right foot, initial encounter (14) Cellulitis of right leg: Status: Acute Category: Medical Code(s): L03.115 - Cellulitis of right lower limb (15) Toe ulcer: Status: Acute Qualifiers: Laterality: right Non-pressure ulcer stage: with necrosis of bone Q ualified Code(s): L97.514 - Non-pressure chronic ulcer of other part of right foot with necrosis of bone Category: Medical Code(s): L97.509 - Non-pressure chronic ulcer of other part of unspecified foot with unspecified severity Plan 05/15/24: 05/15/24 Right foot and ankle xrays reviewed: Appears to be bone changes and gas to right 4th and 5th toes, going to obtain stat CT scan of the right foot to see the extent of infection. Right foot 4th, 5th toe DFU between toes, cellulitis: -Patient was unsure of when she actually started to have the ulceration to the right foot -Right foot cellulitis outlined and marked on foot and lower leg -Right fifth toe wound culture was taken, malodorous, copious purulent drainage noted -Ulceration probes to bone, x-ray shows gas formation -Patient made n.p.o. -Surgical consent obtained for right fourth and fifth toe amputation, incision and drainage, debridement of nonviable soft tissue and bone, metatarsal resection for bone biopsy -Right foot DFU was cleaned with Betadine and then dressed with Betadine soaked gauze and covered with Coban until surgery -Stat right foot CT scan ordered -Patient will be taken to surgery later this afternoon -Patient to continue to be receive IV antibiotics Vanco and Zosyn per Dr. Jones's orders -All orders per Dr. Smith Documented by User: Jen Smith DPM 05/15/24 18:19 [facility] 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 Surgical History History of tonsillectomy and adenoidectomy History of skin graft History of lumpectomy of left breast History of cholecystectomy History of lumpectomy of left breast History of carpal tunnel surgery of left wrist Hx of cholecystectomy Family History Other Cancer Coronary artery disease Diabetes Hyperlipidemia Hypertension Stroke Social History Smoking Status: Never smoker alcohol intake: never substance use type: denies use current occupational status: disabled Travel in the last 8 weeks: None household members: spouse housing: house number of children: 0 current occupational exposures/hazards: No caffeine: Yes Meds Home Medications and Allergies Home Medications ?Medication ?Instructions ?Recorded ?Confirmed ?Type atorvastatin 20 mg tablet 20 mg PO HS High cholesterol 07/05/17 05/13/24 History gabapentin 300 mg capsule 300 mg PO TIDP PRN neuropathic pain 07/05/17 05/13/24 History meloxicam 7.5 mg tablet 7.5 mg PO DAILY 07/05/17 05/13/24 History metformin 500 mg tablet 1,000 mg PO BID Diabetes 07/05/17 05/13/24 History multivitamin 1 each PO DAILY Supplement 07/05/17 05/13/24 History L.acidoph, paracasei,B. lactis 10 1 each PO DAILY Supplement 10/09/18 05/13/24 History billion cell capsule biotin 5 mg capsule 5 mg PO BID 10/09/18 05/13/24 History calcium 600 mg (as 1 each PO BID Supplement 10/09/18 05/13/24 History carbonate)-vitamin D3 20 mcg (800 unit) tablet cinnamon bark-chromium picolinate 2 cap PO BID Supplement 10/09/18 05/13/24 History 500 mg-100 mcg capsule coenzyme Q10 100 mg capsule 100 mg PO DAILY Supplement 10/09/18 05/13/24 History krill hek-waufl-9-dha-epa 300 1 each PO DAILY Supplement 10/09/18 05/13/24 History mg-90 mg (27 mg-45 mg) capsule aspirin 81 mg tablet,delayed 81 mg PO DAILY 05/09/19 05/13/24 History release (Jacki Low Dose Aspirin) fenofibrate nanocrystallized 145 145 mg PO DAILY 10/30/19 05/13/24 History mg tablet lisinopril 20 mg tablet 20 mg PO DAILY Hypertension 10/30/19 05/13/24 History metoprolol succinate 50 mg 50 mg PO DAILY 07/05/22 05/13/24 History tablet,extended release 24 hr pen needle, diabetic 31 gauge x #1,200 ea 05/24/23 05/13/24 History 3/16 (BD Ultra-Fine Mini Pen Needle) duloxetine 60 mg capsule,delayed 60 mg PO DAILY #90 caps 10/09/23 05/13/24 Rx release semaglutide 7 mg tablet (Rybelsus) 7 mg PO DAILY 11/07/23 05/13/24 History duloxetine 30 mg capsule,delayed 30 mg PO DAILY 11/08/23 05/13/24 History release fluoxetine 40 mg capsule 40 mg PO DAILY 11/08/23 05/13/24 History insulin glargine 100 unit/mL 50 unit (0.5 mL) SQ BID Diabetes 11/08/23 05/13/24 Rx subcutaneous solution #1 mL insulin aspart U-100 100 unit/mL 0 unit SQ DIRECTED Diabetes 02/22/24 05/13/24 History (3 mL) subcutaneous pen ascorbic acid (vitamin C) 1,000 mg 500 mg PO DAILY 03/06/24 05/13/24 History chewable tablet carbidopa ER 50 mg-levodopa 200 mg 1 tab PO QID Parkinsonian syndrome 03/06/24 05/13/24 Rx tablet,extended release #120 tabs lumateperone 42 mg capsule 42 mg PO DAILY 05/13/24 05/13/24 History (Caplyta) New Prescriptions to Start Prescriptions: Allergies Allergy/AdvReac Type Severity Reaction Status Date / Time No Known Allergies Allergy Verified 04/15/24 11:23 Exam (Inpt) Feet Top: 2 1. R 4th-5th toes DFU ~0.3x0.3x1.0cm, ulceration opening noted between the fourth and fifth toes probing to bone (metatarsal head) purulent drainage cultured, erythema and blistering noted at the base of fourth and fifth toes, sites cleaned with Betadine and dressed with Betadine soaked gauze and Coban covering. *Surgical consent obtained at bedside right fourth and fifth toe amputation, incision and drainage, debridement of nonviable soft tissue and bone, metatarsal resection for bone biopsy. Results Labs 05/15/24 06:23 05/15/24 06:23 Assessment and Plan *Assessment and plan (1) Urinary tract infection: Status: Acute Qualifiers: Hematuria presence: without hematuria Urinary tract infection type: a cute cystitis Qualified Code(s): N30.00 - Acute cystitis without hematuria Category: Medical Code(s): N39.0 - Urinary tract infection, site not specified (2) WILLAM (acute kidney injury): Status: Acute Category: Medical Code(s): N17.9 - Acute kidney failure, unspecified (3) Fall: Status: Acute Qualifiers: Encounter type: initial encounter Qualified Code(s): W19.XXXA - Unspecified fall, initial encounter Category: Medical Code(s): W19.XXXA - Unspecified fall, initial encounter (4) Dizziness: Status: Acute Category: Medical Code(s): R42 - Dizziness and giddiness (5) Parkinsonian syndrome: Problem Comment: Parkinsonian syndrome Status: Suspected Qualifiers: 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 Qualified Code(s): 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 Category: Medical Code(s): G20 - Parkinson's disease (6) Depression: Status: Acute Qualifiers: Active/Remission status: remission status unspecified Depression Type: major depressive disorder Major depression recurrence: unspecified whether recurrent Qualified Code(s): F32.9 - Major depressive disorder, single episode, unspecified Category: Medical Code(s): F32.A - Depression, unspecified (7) Diabetes type 2, uncontrolled: Status: Chronic Qualifiers: Glycemic state: with hyperglycemia Qualified Code(s): E11.65 - Type 2 diabetes mellitus with hyperglycemia Category: Medical Code(s): E11.65 - Type 2 diabetes mellitus with hyperglycemia (8) Long-term insulin use: Status: Acute Category: Medical Code(s): Z79.4 - assistant terminal manager (current) use of insulin (9) Morbid obesity with body mass index (BMI) of 40.0 to 44.9 in adult: Status: Acute Category: Medical Code(s): E66.01 - Morbid (severe) obesity due to excess calories; Z68.41 - Body mass index [BMI] 40.0-44.9, adult (10) BMI 40.0-44.9, adult: Status: Chronic Category: Medical Code(s): Z68.41 - Body mass index [BMI] 40.0-44.9, adult (11) Recurrent major depression resistant to treatment: Status: Acute Category: Medical Code(s): F33.9 - Major depressive disorder, recurrent, unspecified (12) Edema of right lower leg due to peripheral venous insufficiency: Status: Acute Category: Medical Code(s): I87.2 - Venous insufficiency (chronic) (peripheral); R60.0 - Localized edema (13) Wound of right foot: Status: Acute Category: Medical Code(s): S91.301A - Unspecified open wound, right foot, initial encounter (14) Cellulitis of right leg: Status: Acute Category: Medical Code(s): L03.115 - Cellulitis of right lower limb (15) Toe ulcer: Status: Acute Qualifiers: Laterality: right Non-pressure ulcer stage: with necrosis of bone Q ualified Code(s): L97.514 - Non-pressure chronic ulcer of other part of right foot with necrosis of bone Category: Medical Code(s): L97.509 - Non-pressure chronic ulcer of other part of unspecified foot with unspecified severity Plan 05/15/24: 05/15/24 Right foot and ankle xrays reviewed: Appears to be bone changes and gas to right 4th and 5th toes, going to obtain stat CT scan of the right foot to see the extent of infection. Right foot 4th, 5th toe DFU between toes, cellulitis: -Patient was unsure of when she actually started to have the ulceration to the right foot -Right foot cellulitis outlined and marked on foot and lower leg -Right fifth toe wound culture was taken, malodorous, copious purulent drainage noted -Ulceration probes to bone, x-ray shows gas formation -Patient made n.p.o. -Surgical consent obtained for right fourth and fifth toe amputation, incision and drainage, debridement of nonviable soft tissue and bone, metatarsal resection for bone biopsy -Right foot DFU was cleaned with Betadine and then dressed with Betadine soaked gauze and covered with Coban until surgery -Stat right foot CT scan ordered -Patient will be taken to surgery later this afternoon -Patient to continue to be receive IV antibiotics Vanco and Zosyn per Dr. Jones's orders -All orders per Dr. Smith *Patient seen and evaluated at bedside with CARE PROVIDER. Agree with documentation above. Patient is a 64-year-old diabetic female who was admitted 05/12/2024 for evaluation of frequent falls. Patient had right lower extremity cellulitis. Podiatry consulted today for evaluation of cellulitis and right foot pain. Infection markers were ordered and show an elevated ESR and CRP. Right foot x- rays show obvious gas gangrene between the fourth and the fifth toes extending to the metatarsals. CT ordered which confirmed diagnosis. The images were discussed with the patient. We discussed conservative versus surgical treatment options. We discussed conservative care including continued oral vs IV antibiotics and local wound care versus surgical incision and drainage. Recommended surgery for I&D, wound debridement, fourth and fifth toe amputation with partial metatarsal resections for bone biopsy/margins. Patient understands that they could have wound healing complications including delayed healing and infection. We discussed that if the wound does not heal, it is possible that they may need further debridement. Patient understands if infection spreads into the bone, it may warrant proximal amputation and could result in further loss of digits, loss of partial foot or loss of leg. We discussed the risks and benefits in great detail. Other surgical risks include: prolonged/permanent pain and swelling, further infection requiring oral or IV antibiotics, delay in healing of soft tissue or bone, nerve or blood vessel damage, CRPS/RSD, DVT/PE, anesthesia complications, and even . All questions answered. Patient verbalized understanding. Written consent obtained. *Plan for surgery today for right foot I&D, 4-5th toe amp, 4-5th partial metatarsal resection for bone biopsy.
[2024-05-15] MEDS: VANCOMYCIN HCL 2,000 MG in 0.9 % SODIUM CHLORIDE 250 ML 125 MG IV ×2 (11:52→22:42)
[2024-05-15 12:12] LABS: POC Glucose,Bedside 163 (70-110)
--- NOTE | 2024-05-15 12:20 | CT_ITS ---
FINAL REPORT TECHNIQUE: Thin section axial CT images of the right foot with coronal and sagittal reformats were performed. This study was performed with techniques to keep radiation doses as low as reasonably achievable (ALARA). Individualized dose reduction techniques using automated exposure control or adjustment of mA and/or kV according to the patient's size were employed. CLINICAL HISTORY: i & d gas, 4th & 5 toe DFU COMPARISON: None FINDINGS: CT RIGHT FOOT: Mild and moderate degenerative changes are present in the midfoot. There are small chronic calcifications present adjacent to the lateral aspect of the talus. There is circumferential edema and cellulitis in the foot, without a well-defined fluid collection to suggest abscess. There are soft tissue gas collections adjacent to the fourth and fifth digits. There are no bony erosions identified to suggest osteomyelitis. IMPRESSION: Circumferential edema and possibly cellulitis in the foot, without a well-defined fluid collection to suggest abscess. Soft tissue gas collections adjacent to the fourth and fifth digits, without bony erosions identified to suggest osteomyelitis. If symptoms persist, MRI may be helpful as it is more sensitive than CT in diagnosing osteomyelitis. Reviewed, Interpreted and Dictated by Sherwin Winston III, MD Transcribed by Marva Gregory Authenticated and [facility]
--- NOTE | 2024-05-15 12:30 | HMH.ITSTN ---
I spoke with patient nurse and patient is getting medication at this time, she will let me know when patient is ready to come down.
[2024-05-15 12:47] LABS: C-Reactive Protein 284.1 mg/L (0-4)
[2024-05-15 13:00] LABS: Erythrocyte Sedimentation Rate 83 mm/hr (0-30)
--- NOTE | 2024-05-15 14:10 | HMH.ITSTN ---
per Pushpa medication will be finished in about 20 minutes
[2024-05-15 15:41] LABS: POC Glucose,Bedside 178 (70-110)
--- NOTE | 2024-05-15 16:51 | P.PNANES_ITS ---
[facility] [place] Disclaimer: The information contained in this section may have been updated after the patient was seen, as this information can be updated by other users. 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 Surgical History History of tonsillectomy and adenoidectomy History of skin graft History of lumpectomy of left breast History of cholecystectomy History of lumpectomy of left breast History of carpal tunnel surgery of left wrist Hx of cholecystectomy Family History Other Cancer Coronary artery disease Diabetes Hyperlipidemia Hypertension Stroke Social History Smoking Status: Never smoker alcohol intake: never substance use type: denies use current occupational status: disabled Travel in the last 8 weeks: None household members: spouse housing: house number of children: 0 current occupational exposures/hazards: No caffeine: Yes [facility] Anesthesia Checklist Patient Identification Patient Identification: Verbal (Name & ) Structural Data Admitted From: Inpatient Planned Operative Procedure/s: amputation r 4thand 5th toe Consent for Planned Operative Procedure(s) Verified: Yes NPO Status Verified Time NPO: 08:00 Additional verifications Anesthesia Reactions: No Hx Blood Transfusions: No Blood Transfusion Reaction: No Airway Assessment Mallampati Score:: Class III C-Spine Mobility Assessed: Yes TMJ Mobility Assessed: Yes Dentition: Poor Dentition Neurological Assessment Level of Consciousness: Awake, Alert and Appropriate Anesthesia Plan Anesthesia Risk discussed: Yes Anesthesia Plan: Verified ASA Class: III Anesthesia Type: General
[2024-05-15] MEDS: CLINDAMYCIN PHOSPHATE/D5W 900 MG/50 ML PIGGYBACK 50 MG (17:02)
[2024-05-15] MEDS: SODIUM CHLORIDE IRRIG SOLUTION 3,000 ML 3000 ML IR (17:02)
[2024-05-15] MEDS: VANCOMYCIN 1000MG VIAL 1000 MG (17:30)
--- NOTE | 2024-05-15 17:50 | XR_ITS ---
PROCEDURE INFORMATION: Exam: XR Right Foot Exam date and time: 05/15/2024 6:09 PM Age: 64 years old Clinical indication: Pain; Foot; Right; Additional info: S/P 4-5th partial met resection TECHNIQUE: Imaging protocol: Radiologic exam of the right foot. Views: 3 or more views. COMPARISON: No relevant prior studies available. FINDINGS: Bones/joints: Amputation of the 4th and 5th toes beginning at the proximal metatarsal level. No osteomyelitis radiographically. Soft tissues: Soft tissue defect in the lateral foot at the expected locations of the 4th and 5th toes. Surgical skin reji. Soft tissue swelling IMPRESSION: Postsurgical changes as above
--- NOTE | 2024-05-15 17:50 | EXP.ANES.I ---
[facility] Anesthesia Record Part I Anesthesia Record I Intake, IV Amount: 1,300 Hydration: Adequate Estimated blood loss (mL): 25 Urine output (mL): 0 Blood Products used (#): none Blood Pressure: 125/70 SaO2: 94 Pulse Rate: 86 Airway Patency: Patent Respiratory Rate: 16 Temperature: 97.6 F Patient is:: Awake and Stable Stable to PACU at:: 17:45
--- NOTE | 2024-05-15 17:57 | P.OP_ITS ---
Date of procedure: 05/15/24 Pre-op Diagnosis:: Right foot gas gangrene Right lower extremity cellulitis Diabetic foot ulcer with osteomyelitis Post-op Diagnosis:: Same Procedure performed:: Right foot incision and drainage Wide excisional debridement nonviable soft tissue and bone Right partial 4-5th ray amputation Surgeon:: Jen Smith DPM CHAIR SPRING ASSEMBLER:: Sedrick Hollins Anesthesia: GETA Estimated blood loss (mL): 10 Clinical Note:: Patient is a 64-year-old diabetic female who was admitted 05/12/2024 for evaluation of frequent falls. Patient had right lower extremity cellulitis. Podiatry consulted today for evaluation of cellulitis and right foot pain. Infection markers were ordered and show an elevated ESR and CRP. Right foot x- rays show obvious gas gangrene between the fourth and the fifth toes extending to the metatarsals. CT ordered which confirmed diagnosis. The images were discussed with the patient. We discussed conservative versus surgical treatment options. We discussed conservative care including continued oral vs IV antibiotics and local wound care versus surgical incision and drainage. Recommended surgery for I&D, wound debridement, fourth and fifth toe amputation with partial metatarsal resections for bone biopsy/margins. Patient understands that they could have wound healing complications including delayed healing and infection. We discussed that if the wound does not heal, it is possible that they may need further debridement. Patient understands if infection spreads into the bone, it may warrant proximal amputation and could result in further loss of digits, loss of partial foot or loss of leg. We discussed the risks and benefits in great detail. Other surgical risks include: prolonged/permanent pain and swelling, further infection requiring oral or IV antibiotics, delay in healing of soft tissue or bone, nerve or blood vessel damage, CRPS/RSD, DVT/PE, anesthesia complications, and even . All questions answered. Patient verbalized understanding. Written consent obtained. Operative findings:: Right fourth and fifth interspace diabetic foot ulcer which probes directly to the fifth metatarsal head. Jose Ramon thick white-yellow creamy malodorous purulent drainage expressed from the interspace. Significant 2+ pitting edema throughout the right lower extremity. Cellulitis extending to mid luevano. Incision was made between the fourth and fifth metatarsals dorsally 2 cm deep. Drainage noted. Wound culture taken. Fourth and fifth toes with purulent malodorous drainage from the bone, suspected osteomyelitis. Fourth and fifth metatarsal head had early cortical erosions. Manage removed for bone culture. Clean proximal margin of the metatarsals taken for evaluation. Third interspace tissue intact. There was no exposed third toe or metatarsal. No sinus tracking to the medial foot. Post debridement large wide incision extending from the fourth and fifth toe amputation site to the proximal aspect of the fourth interspace. Post debridement minimal but healthy bleeding noted. Partial primary closure performed at the distal and proximal aspect of the wound. Area centrally was left open to pack/drain where the majority of the gas and nonviable soft tissue was noted. Post debridement: Right lateral foot wound: 3.5 x 2 x 3.5 cm full- thickness to deep fascia. Patient will need continued antibiotic therapy. Patient will likely need delayed primary closure versus wound VAC in next few weeks. Plan to leave the wound open for now with daily packing. Operative note:: On this date and time the patient was deemed an appropriate surgical candidate. With informed consent time patient was transferred from the preoperative holding area to the operating theater placed on table in a normal supine position. Right lower extremities prepped and draped in normal sterile fashion. No tourniquet utilized. IV Clinda given. Patient getting Vanco, Zosyn scheduled on the floor. Right foot incision and drainage: Attention was directed to the right dorsal foot where edema and erythema was noted. Utilizing a 15 blade, a linear incision was made over the 4-5th metatarsal interspace. There was yellow-white purulent drainage noted. [id number] pressure was applied to the incision and immediately 10cc of purulent drainage was expressed. Wound culture taken. Next hemostat used to explore the area. There was deep tracking to the midshaft of 4th metatarsal with tunneling noted. Right foot open bone biopsy: A stab incision was made over the 5th met head with a 15 blade. Blunt dissection carried down to level of bone. A saw was used to remove the 5th met head. The bone was soft with cortical erosion and changes noted. Decision made to convert from a bone biopsy to a partial metatarsal head resection as there was clinically suspected osteomyelitis. Right partial 4th?5th ray amputation/resection: A linear incision was mapped out between the fourth interspace extending distally around the fourth and the fifth toes. Full-thickness dissection down to the level of the bones. The toes were disarticulated from the metatarsal heads. The fourth and the fifth toe bones were soft crumbly with purulent drainage from the bone. A piece of the bone sent for bone culture and a piece for pathology. Next the metatarsal heads were evaluated. The fourth and the fifth metatarsal head did have some early cortical erosions and discolorations. Power saw was used to resect the distal aspect of the fourth and fifth metatarsals which were sent for bone culture. Wound was flushed with gentamicin irrigation. Next saw was used to transect a piece of the fourth and fifth metatarsal which looked to be within normal limits in this specimen was sent to pathology as metatarsal proximal margin. Right wide debridement of nonviable tissue: 15 blade and forceps was then used to debride nonviable soft tissue full-thickness down to the level of the deep fascia. 15 blade was used to sharply debride necrotic nonviable soft tissue full-thickness from the lateral foot. See operative findings for measurements. Gentamicin irrigation was used to flush all incisions using pulse lavage. The wounds were explored and no more purulence was noted. Prolene retention stitch was inserted. Skin reji were used to reapproximate the most distal and proximal aspects of the incision. Vancomycin powder was inserted into the wound and along the incision site. Betadine soaked gauze inserted into the wound. Betadine dressing was then applied over the right foot. Patient was woken from anesthesia with vitals stable and neurovascular status intact to be transferred to recovery for further monitoring before being transferred back to the floor. Materials: Prolene, vancomycin powder 1 g, Betadine soaked gauze Plan: Maintain dressing clean dry and intact to right foot, reinforce as necessary. NWB in short fracture boot or post op shoe, walker. Antibiotics: IV vancomycin, Zosyn via hospitalist team. X-rays right foot 3 views. Plan for dressing change in the morning per podiatry. Condition: stable Disposition: floor Specimens:: Micro: Right foot wound culture Right 4-5th toe bone culture Right 4-5th metatarsal bone culture Path: Right 4-5th toes 4th metatarsal bone proximal margin 5th metatarsal bone proximal margin Complications:: None
--- NOTE | 2024-05-15 18:30 | PC.NURSE ---
pagedarius simon due to pt being combative toward staff, trying to get out of bed, and yelling out after arriving to floor post op. approached pt in a calm manner with failed attempts. VO for ativan 0.5mg iv once now.
[2024-05-15] MEDS: LORazepam 2MG/ML VIAL 0.5 MG IV (18:43)
[2024-05-15 18:52] LABS: POC Glucose,Bedside 106 (70-110)
[2024-05-15 20:03] LABS: POC Glucose,Bedside 99 (70-110)
--- NOTE | 2024-05-15 21:03 | PC.NURSE ---
Addendum entered by Emily Muller RN 05/15/24 21:07: Patient was not given insulins at this time due to fingerstick glucose readings of 99. Original Note: Patient refused PO pills at this time, stating no, I do not want them.
--- NOTE | 2024-05-15 21:10 | PC.NURSE ---
Addendum entered by Emily Muller RN 05/15/24 21:37: At this time, the patient is resting calmly in bed with eyes closed, respirations even and unlabored, and no further distress. Spelling error in original note: get her out of here. Addendum entered by Emily Muller RN 05/15/24 21:31: A one time dose of 1 mg of Ativan was given. Addendum entered by Emily Muller RN 05/15/24 21:22: Patient is attempting to get out of bed at this time. Patient is belligerent with staff and refuses care interventions. Patient has been kicking at staff. Robert was paged for interventions. Original Note: Upon assessment, patient could not tell me her correct first/last name, her birthday, and where she was. She refused to wear a blood pressure cuff to resume her post op vital signs at this time. She has started to state that she wants to get out of bed and for someone to get her out of her. Patient appears to be quite restless, frustrated, and disoriented at this time. Staff attempted to reorient patient and reposition her in bed; however, patient is reluctant and refuses care interventions at this time.
[2024-05-15] MEDS: LORazepam 2MG/ML VIAL 1 MG IV (21:46)
[2024-05-16] VITALS (12 sets, daily range): BP systolic 134–166; BP diastolic 68–88; PULSE 72–95; RESP 16–20; TEMP 36.4–37.8; O2SAT 91–96; BMI 40.0
[2024-05-16] MEDS: PIPERACILLIN/TAZO 4.5 GM in 0.9 % SODIUM CHLORIDE 100 ML IV ×3 (00:58→16:43)
--- NOTE | 2024-05-16 02:24 | PC.NURSE ---
Addendum entered by Emily Muller RN 05/16/24 03:00: Post-op vital signs were able to be resumed since 22:00 after patient had calmed down; at this time, post-op vital sign assessments are complete. Three sets every 30 minutes and four sets every 1 hour were obtained. Patient had refused prior vital sign assessments, except for the 19:30 assessment (05/15) this shift. Original Note: Patient was given a bed bath by numerous staff members at this time and tolerated it very well. She had also voided in her brief; brief and gown were changed. Powder was applied to body folds. Patient appeared to be much more cooperative with staff, calm, and appropriate. She was able to tell staff her correct first/last name, her correct birthday, and where she was ( [facility] ). She is currently resting supine in bed with no further complaints.
--- NOTE | 2024-05-16 03:56 | PC.NURSE ---
Patient's axillary temperature was elevated at 100.0. An oscillating fan is not available on the floor at this time. Patient's top blankets and comforter were pulled back (leaving a thin sheet), and her room temperature was turned down to 70.
[2024-05-16] MEDS: ACETAMINOPHEN 325MG TAB 650 MG PO (05:05)
[2024-05-16] MEDS: GABAPENTIN 300MG CAPSULE 300 MG PO (05:05)
--- NOTE | 2024-05-16 05:16 | PC.NURSE ---
Addendum entered by Emily Muller RN 05/16/24 06:07: Patient's temperature trends have decreased since intervention implementation (top blanket removal, Tylenol): 04:00 (100.0 ax), 05:00 (99.0 oral) to 06:00 (97.8 oral). Original Note: Patient was quite disoriented initially this shift. She was uncooperative with staff, quite restless, and was adamant about getting out of bed and not staying here. An order for a one time dose of Ativan was obtained from [facility] (form faxed through to the overnight pharmacy) and given per AUG. The patient was observed to have eyes closed, respirations even and unlabored on room air, and no apparent distress since receiving Ativan. However, a few hours later, patient did awaken (around 02:20), stating that she had to use the bathroom a few times this shift. Patient was using a brief for defecation/urination during her most disoriented state; now, patient has been asking to use the bedpan. She refused a purewick, stating that it embarrasses her. She has been voiding frequently with urgency. She was also given a bed bath this shift (see prior note). Patient is no longer pulling at her IV lines, and she was able to answer a few orientation questions correctly. However, patient continues to talk about leaving and has been slightly tearful. Patient's lower right extremity was noticed to have some swelling and redness above the KENDRA wrap; patient had an amputation of the 4th and 5th toes on her right foot during the previous shift. Patient has excoriation on her bilateral shins. She has a scab on her philtrum and scabbing on her knees. She has been non-weight bearing on her right foot. Upon auscultation, her lung sounds were clear, S1/S2 heart sounds could be heard, and bowel sounds were active. Her blood pressures have been elevated this shift. She refused her scheduled PO medications, but received her IV antibiotics per AUG. She was also cooperative with receiving PRN Tylenol (elevated temperature and pain) and gabapentin (neuropathic pain) this morning. Her fingerstick glucose readings have required no insulin coverage this shift (at 21:00 was 99, at 06:00 was 90). She was also willing to drink some ice water this morning; she had refused any food or drink in the first half of the shift. At this time, the patient is resting in bed. No acute changes noted thus far. Bed alarm on. Call light within reach; however, due to current disorientation, patient has not been able to use the call light effectively this shift. Frequent rounds have been made.
[2024-05-16 05:47] LABS: POC Glucose,Bedside 90 (70-110)
[2024-05-16 07:20] LABS: Basophils % 0.4 % (0.1-2.0); Eosinophils # 0.3 K/mm3 (0.0-0.4); Eosinophils % 2.8 % (0.1-12.0); Hematocrit 34.2 % (37.0-47.0); Hemoglobin 11.4 g/dL (12.2-16.2); Lymphocytes # 1.2 K/mm3 (0.7-4.5); Lymphocytes % 11.3 % (10-50); Mean Corpuscular HGB Conc 33.3 g/dL (31.8-35.4); Mean Corpuscular Hemoglobin 29.4 pg (27.0-31.2); Mean Corpuscular Volume 88.3 fl (81-99); Mean Platelet Volume 9.8 fl (7.4-10.4); Monocytes # 0.6 K/mm3 (0.1-1.0); Monocytes % 5.9 % (1.7-9.3); Neutrophils # 8.4 K/mm3 (1.8-7.8); Neutrophils % 79.5 % (37.0-80.0); Platelet Count 221 K/mm3 (142-424); Red Blood Count 3.87 M/mm3 (4.20-5.40); Red Cell Distribution Width 14.1 % (11.5-17.5); White Blood Count 10.5 K/mm3 (4.8-10.8)
[2024-05-16 07:28] LABS: Alanine Aminotransferase 25 U/L (12-78); Albumin Level 3.3 g/dl (3.5-5.0); Albumin/Globulin Ratio 1.1 (1.1-1.8); Alkaline Phosphatase 58 U/L (38-126); Anion Gap 12.9 mEq/L (5-15); Aspartate Amino Transferase 34 U/L (14-36); Bilirubin,Total 0.8 mg/dl (0.2-1.3); Blood Urea Nitrogen 19 mg/dl (7-17); Calcium 8.5 mg/dl (8.4-10.2); Carbon Dioxide 25 mmol/L (22.0-30.0); Chloride 106 mmol/L (98-107); Creatinine Clearance Estimated 100 mL/min (50-200); Estimated Glomerular Filt Rate 100 ml/min (>60); GFR (African American) 121 ML/MIN (>60); Globulin 3.1 g/dL (1.3-3.2); Glucose 93 mg/dl (74-100); Potassium 3.9 mmoL/L (3.5-5.1); Sodium 140 mmol/L (136-145); Total Protein,Serum 6.4 g/dl (6.3-8.2)
[2024-05-16 07:33] LABS: C-Reactive Protein 207.5 mg/L (0-4)
[2024-05-16 07:49] LABS: Erythrocyte Sedimentation Rate 118 mm/hr (0-30)
--- NOTE | 2024-05-16 08:07 | EXP.ORTH.PN ---
Subjective *Date: 05/16/24 *Time: 15:07 Interval history: Patient seen and evaluated today. Resting comfortably in bed. Reports some pain to the right foot but improved from yesterday. Dressing clean dry and intact. Ortho Exam (Inpt) Vital signs and Labs for Last 24 Hours: Temp Pulse Resp BP Pulse Ox O2 Del Method O2 Flow Rate 97.8 F 90 18 150/71 H 96 Room Air 2 05/16/24 06:00 05/16/24 03:51 05/16/24 03:51 05/16/24 03:51 05/16/24 03:51 05/16/24 06:50 05/15/24 23:55 Laboratory Results - last 24 hr 05/15/24 11:45: POC Glucose 163 H 05/15/24 12:09: ESR 83 H, C-Reactive Protein 284.1 H 05/15/24 15:34: POC Glucose 178 H 05/15/24 18:45: POC Glucose 106 05/15/24 19:54: POC Glucose 99 05/16/24 05:12: POC Glucose 90 05/16/24 06:51: WBC 10.5, RBC 3.87 L, Hgb 11.4 L, Hct 34.2 L, MCV 88.3, MCH 29.4, MCHC 33.3, RDW 14.1, Plt Count 221, MPV 9.8, Neut % (Auto) 79.5, Lymph % (Auto) 11.3, [place] % (Auto) 5.9, Eos % (Auto) 2.8, Baso % (Auto) 0.4, Neut # (Auto) 8.4 H, Lymph # (Auto) 1.2, [place] # (Auto) 0.6, Eos # (Auto) 0.3, Baso # (Auto) 0.0, ESR 118 H, Sodium 140, Potassium 3.9, Chloride 106, Carbon Dioxide 25, Anion Gap 12.9, BUN 19 H, Creatinine 0.60, Estimated Creat Clear 100, Estimated GFR 100, Est GFR ( Amer) 121, Glucose 93, Calcium 8.5, Total Bilirubin 0.8, AST 34, ALT 25, Alkaline Phosphatase 58, C-Reactive Protein 207.5 H, Total Protein 6.4, Albumin 3.3 L, Globulin 3.1, Albumin/Globulin Ratio 1.1 I & O for Labs for Last 24 Hours: Intake & Output 05/13/24 05/14/24 05/15/24 05/16/24 11:59 11:59 11:59 11:59 Intake Total 1100 / 1100 1670 / 1670 1370 / 1370 1428 / 1428 Output Total 0 / 0 0 / 0 0 / 0 0 / 0 Balance 1100 / 1100 1670 / 1670 1370 / 1370 1428 / 1428 Weight 247 lb 8 oz 245 lb 6.4 oz 244 lb 11.41 oz 249 lb 5 oz Microbiology Reports for the Last 24 Hours: Microbiology 05/15/24 11:57 Toe,Right Fifth Gram Stain - Final 05/15/24 11:57 Toe,Right Fifth Wound Culture - Preliminary 05/15/24 01:40 Foot,Right - Abscess Gram Stain - Final 05/15/24 01:40 Foot,Right - Abscess Wound Culture - Preliminary Gram Negative Rods 05/15/24 17:00 Foot,Right - Right Fourth Bone Culture - Preliminary 05/15/24 17:00 Foot,Right - Right Gram Stain - Preliminary 05/15/24 17:00 Foot,Right Bone Culture - Preliminary Constitutional: Present morbidly obese, chronically ill appearing and somnolent Head: Present normocephalic Neck: Present normal inspection Respiratory: Present normal respiratory effort Cardiac: Present pedal pulses present GI: Present soft Rectal (female): Present deferred (female): Present deferred Extremities: Present tenderness and edema Skin: Present erythema Comment:: Right lower extremity cellulitis was marked out 05/15/2024. The ascending cellulitis has receded from yesterday. Palpable pulses to the right foot. Incision with open wound to the right dorsal lateral foot. The retention sutures/proximal reji were removed at bedside to reduce tension on the skin. Wound was flushed with saline and explored and no signs of purulence noted. Wound opening measures 4 x 2.5 x 2.5 cm. Will plan for wound VAC for 3 weeks then reevaluation with possible closure once the tissue is better. Ankle: bilateral: normal inspection and bilateral: swelling (lymphedema) Feet/Toes: right: amputation (s/p 4-5th partial ray amp), right: swelling, right: tenderness and right: wound (right dorsal lateral DFU s/p I&D, 4-5th partial ray amp) and bilateral: normal inspection and bilateral: hammer toe Assessment and Plan *Assessment and plan (1) Cellulitis of right leg: Status: Acute Category: Medical Code(s): L03.115 - Cellulitis of right lower limb (2) Diabetic foot ulcer: Status: Acute Qualifiers: Diabetes mellitus type: type 2 Diabetic foot ulcer location: other Laterality: right Non-pressure ulcer stage: with necrosis of bone Qualified Code(s): E11.621 - Type 2 diabetes mellitus with foot ulcer; L97.514 - Non-pressure chronic ulcer of other part of right foot with necrosis of bone Category: Medical Code(s): E11.621 - Type 2 diabetes mellitus with foot ulcer; L97.509 - Non-pressure chronic ulcer of other part of unspecified foot with unspecified severity (3) Gas gangrene: Status: Acute Category: Medical Code(s): A48.0 - Gas gangrene (4) Parkinsonian syndrome: Problem Comment: Parkinsonian syndrome Status: Suspected Qualifiers: 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 Qualified Code(s): 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 Category: Medical Code(s): G20 - Parkinson's disease (5) Diabetes type 2, uncontrolled: Status: Chronic Qualifiers: Glycemic state: with hyperglycemia Qualified Code(s): E11.65 - Type 2 diabetes mellitus with hyperglycemia Category: Medical Code(s): E11.65 - Type 2 diabetes mellitus with hyperglycemia (6) Long-term insulin use: Status: Acute Category: Medical Code(s): Z79.4 - skilled nursing (current) use of insulin (7) Morbid obesity with body mass index (BMI) of 40.0 to 44.9 in adult: Status: Acute Category: Medical Code(s): E66.01 - Morbid (severe) obesity due to excess calories; Z68.41 - Body mass index [BMI] 40.0-44.9, adult (8) Edema of right lower leg due to peripheral venous insufficiency: Status: Acute Category: Medical Code(s): I87.2 - Venous insufficiency (chronic) (peripheral); R60.0 - Localized edema (9) Osteomyelitis of right foot: Status: Acute Qualifiers: Osteomyelitis type: chronic, with draining sinus Qualified Code(s): M86.471 - Chronic osteomyelitis with draining sinus, right ankle and foot Category: Medical Code(s): M86.9 - Osteomyelitis, unspecified Plan Right foot 4th, 5th toe DFU between toes, cellulitis: -Patient was unsure of when she actually started to have the ulceration to the right foot -Right foot cellulitis outlined and marked on foot and lower leg -Right fifth toe wound culture was taken, malodorous, copious purulent drainage noted -Ulceration probes to bone, x-ray shows gas formation -Patient made n.p.o. -Surgical consent obtained for right fourth and fifth toe amputation, incision and drainage, debridement of nonviable soft tissue and bone, metatarsal resection for bone biopsy -Right foot DFU was cleaned with Betadine and then dressed with Betadine soaked gauze and covered with Coban until surgery -Stat right foot CT scan ordered -Patient will be taken to surgery later this afternoon -Patient to continue to be receive IV antibiotics Vanco and Zosyn per Dr. Jones's orders -All orders per Dr. Smith Surgery, 05/15/24: S/p Right foot incision and drainage, wide excisional debridement nonviable soft tissue and bone, right partial 4-5th ray amputation Intraop Specimens: pending Micro: Right foot wound culture Right 4-5th toe bone culture Right 4-5th metatarsal bone culture Path: Right 4-5th toes 4th metatarsal bone proximal margin 5th metatarsal bone proximal margin 05/13/24, Ha1c 8.1% 05/15/24, labs: 11.7, esr 83, crp 284.1, cr 0.6, gfr 100, glucose 92, albumin 3.8 05/16/24, labs: wbc 10.5, esr 118, crp 207.5, cr 0.6, gfr 100, glucose 93, albumin 3.3 05/16/24, POD #1 -S/p surgery yesterday -Post amp: review x-rays 3v foot, proximal gas or OM. -Labs reviewed: inflammatory markers still elevated but wbc and crp trending down -Based on intraop findings these will take some time to normalize -Discussed the importance of proper hygiene and maintaining a clean healthy wound bed to avoid the infection spreading. -Discussed local wound care, abx for cellulitis, gas, OM -Patient understands she will likely need another procedure in a few weeks for surgical debridement and closure once the skin demarcates and the tissue calms down -Given extent of gas infection and plus tissue is too inflamed, fragile and bruised to attempt any kind of closure at this point -Right foot dsg intact -Dsg removed, wound flushed and explored at the bedside -Tissue quality was poor. Sutures/retention reji were removed to reduce tension of the skin line -No new evidence of purulence or drainage -Wound packed open with Betadine soaked gauze, DSD applied -NWB to RLE in post op shoe/short fx boot (will need prior to d/c) -Continue IV abx: Vanco, Zosyn per PCP -I recommend 4-6 wks PICC, IV abx for broad-spectrum coverage for both the soft tissue and bone infection component -Right lateral foot: s/p I&D, tissue not good for closure, packed open -Will need [facility] wound care -Plan for right lateral foot: wound vac @125mmHg med continuous -Plan for twice weekly vac changes (Mon/ or /Mon schedule) -Monitor intraop cultures/biopsies -Pt would benefit from SNF for PICC, IV abx and nursing wound VAC change -Will also need f/u arranged with Podiatry SNF orders: -NWB to RLE in post op shoe/short fx boot -Plan for right foot wound vac @125mmHg med continuous twice weekly changes (Mon/ or /Mon) -PICC, IV abx per PCP recs -Weekly labs (cbc, cmp, esr, crp) fax to Podiatry ([phone]) -F/u with Podiatry weekly
--- NOTE | 2024-05-16 08:25 | EXP.ACUTE.PN ---
Subjective *Date: 05/16/24 *Time: 09:07 Interval history: Patient is very lethargic this am. She denies any pain. She states she is tired. Has not eaten anything. Medical Exam Vital signs and Labs for Last 24 Hours: Vital Signs Temp Pulse Pulse Resp BP BP Pulse Ox 05/16/24 06:50 05/16/24 06:00 97.8 F 05/16/24 05:00 05/16/24 05:00 99 F 05/16/24 03:51 100.0 F H 90 18 150/71 H 96 05/16/24 03:00 05/16/24 02:00 89 18 164/77 H 94 L 05/16/24 01:00 72 17 166/73 H 93 L 05/16/24 01:00 05/16/24 00:00 88 16 163/72 H 93 L 05/15/24 23:55 05/15/24 23:00 90 14 162/72 H 92 L 05/15/24 23:00 05/15/24 22:30 98.7 F 85 16 145/73 H 92 L 05/15/24 22:00 98 F 86 18 144/74 H 91 L 05/15/24 21:00 05/15/24 20:00 86 18 92 L 05/15/24 19:30 87 16 122/55 L 91 L 05/15/24 18:50 05/15/24 18:44 88 18 110/58 L 92 L 05/15/24 18:15 88 18 110/58 L 92 L 05/15/24 18:10 97.6 F 91 H 16 140/70 96 05/15/24 18:00 97.6 F 90 16 156/74 H 96 05/15/24 17:51 97.6 F 86 16 125/70 05/15/24 17:50 97.6 F 95 H 16 174/79 H 96 05/15/24 17:40 97.6 F 86 16 125/70 93 L 05/15/24 15:21 98.2 F 82 20 123/57 L 98 05/15/24 13:00 05/15/24 12:00 98.2 F 82 20 123/57 L 98 05/15/24 11:00 05/15/24 09:00 05/15/24 08:39 O2 Del Method O2 Flow Rate 05/16/24 06:50 Room Air 05/16/24 06:00 05/16/24 05:00 Room Air 05/16/24 05:00 05/16/24 03:51 Room Air 05/16/24 03:00 Room Air 05/16/24 02:00 Room Air 05/16/24 01:00 Room Air 05/16/24 01:00 Room Air 05/16/24 00:00 Room Air 05/15/24 23:55 Nasal Cannula 2 05/15/24 23:00 Room Air 05/15/24 23:00 Room Air 05/15/24 22:30 Room Air 05/15/24 22:00 Room Air 05/15/24 21:00 Room Air 05/15/24 20:00 Room Air 05/15/24 19:30 Room Air 05/15/24 18:50 Room Air 05/15/24 18:44 Room Air 05/15/24 18:15 Room Air 05/15/24 18:10 Room Air 05/15/24 18:00 Room Air 05/15/24 17:51 05/15/24 17:50 Room Air 05/15/24 17:40 Room Air 05/15/24 15:21 Room Air 05/15/24 13:00 Room Air 05/15/24 12:00 Room Air 05/15/24 11:00 Room Air 05/15/24 09:00 Room Air 05/15/24 08:39 Room Air Intake and Output 05/15/24 05/16/24 05/16/24 19:59 03:59 11:59 Intake Total 1300 / 1428 128 / 1428 Output Total 0 / 0 Balance 1300 / 1428 128 / 1428 Intake: Intake, Total IV Amount 1300 / 1300 Infusion Intake 128 / 128 Vancomycin HCl 2,000 mg In 0.9 128 / 128 % Sodium Chloride 250 ml @ 125 mls/hr IV Q12H [facility] Rx#:[id number] Output: Output, Urine Amount 0 / 0 Other: Number of Unmeasured Voids 1 1 Weight 249 lb 5 oz Patient Weight 05/16/24 11:59 Weight 249 lb 5 oz Laboratory Results - last 24 hr 05/15/24 11:45: POC Glucose 163 H 05/15/24 12:09: ESR 83 H, C-Reactive Protein 284.1 H 05/15/24 15:34: POC Glucose 178 H 05/15/24 18:45: POC Glucose 106 05/15/24 19:54: POC Glucose 99 05/16/24 05:12: POC Glucose 90 05/16/24 06:51: WBC 10.5, RBC 3.87 L, Hgb 11.4 L, Hct 34.2 L, MCV 88.3, MCH 29.4, MCHC 33.3, RDW 14.1, Plt Count 221, MPV 9.8, Neut % (Auto) 79.5, Lymph % (Auto) 11.3, [place] % (Auto) 5.9, Eos % (Auto) 2.8, Baso % (Auto) 0.4, Neut # (Auto) 8.4 H, Lymph # (Auto) 1.2, [place] # (Auto) 0.6, Eos # (Auto) 0.3, Baso # (Auto) 0.0, ESR 118 H, Sodium 140, Potassium 3.9, Chloride 106, Carbon Dioxide 25, Anion Gap 12.9, BUN 19 H, Creatinine 0.60, Estimated Creat Clear 100, Estimated GFR 100, Est GFR ( Amer) 121, Glucose 93, Calcium 8.5, Total Bilirubin 0.8, AST 34, ALT 25, Alkaline Phosphatase 58, C-Reactive Protein 207.5 H, Total Protein 6.4, Albumin 3.3 L, Globulin 3.1, Albumin/Globulin Ratio 1.1 I & O for Labs for Last 24 Hours: Intake & Output 05/13/24 05/14/24 05/15/24 05/16/24 11:59 11:59 11:59 11:59 Intake Total 1100 / 1100 1670 / 1670 1370 / 1370 1428 / 1428 Output Total 0 / 0 0 / 0 0 / 0 0 / 0 Balance 1100 / 1100 1670 / 1670 1370 / 1370 1428 / 1428 Weight 247 lb 8 oz 245 lb 6.4 oz 244 lb 11.41 oz 249 lb 5 oz Microbiology Reports for the Last 24 Hours: Microbiology 05/15/24 11:57 Toe,Right Fifth Gram Stain - Final 05/15/24 11:57 Toe,Right Fifth Wound Culture - Preliminary 05/15/24 01:40 Foot,Right - Abscess Gram Stain - Final 05/15/24 01:40 Foot,Right - Abscess Wound Culture - Preliminary Gram Negative Rods 05/15/24 17:00 Foot,Right - Right Fourth Bone Culture - Preliminary 05/15/24 17:00 Foot,Right - Right Gram Stain - Preliminary 05/15/24 17:00 Foot,Right Bone Culture - Preliminary Constitutional: Present no acute distress Respiratory: Present CTA bilaterally Cardiac: Present Reg Rate and Rhythm GI: Present soft; Absent distention or tenderness Extremities: Present edema (dressing in place on right foot) Neuro: Present alert, awake and oriented x 3 Assessment and Plan *Assessment and plan (1) Urinary tract infection: Status: Acute Qualifiers: Hematuria presence: without hematuria Urinary tract infection type: acute cystitis Qualified Code(s): N30.00 - Acute cystitis without hematuria Category: Medical Code(s): N39.0 - Urinary tract infection, site not specified (2) WILLAM (acute kidney injury): Status: Acute Category: Medical Code(s): N17.9 - Acute kidney failure, unspecified (3) Fall: Status: Acute Qualifiers: Encounter type: initial encounter Qualified Code(s): W19.XXXA - Unspecified fall, initial encounter Category: Medical Code(s): W19.XXXA - Unspecified fall, initial encounter (4) Dizziness: Status: Acute Category: Medical Code(s): R42 - Dizziness and giddiness (5) Parkinsonian syndrome: Problem Comment: Parkinsonian syndrome Status: Suspected Qualifiers: 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 Qualified Code(s): 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 Category: Medical Code(s): G20 - Parkinson's disease (6) Depression: Status: Acute Qualifiers: Active/Remission status: remission status unspecified Depression Type: major depressive disorder Major depression recurrence: unspecified whether recurrent Qualified Code(s): F32.9 - Major depressive disorder, single episode, unspecified Category: Medical Code(s): F32.A - Depression, unspecified (7) Diabetes type 2, uncontrolled: Status: Chronic Qualifiers: Glycemic state: with hyperglycemia Qualified Code(s): E11.65 - Type 2 diabetes mellitus with hyperglycemia Category: Medical Code(s): E11.65 - Type 2 diabetes mellitus with hyperglycemia (8) Long-term insulin use: Status: Acute Category: Medical Code(s): 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 (9) Morbid obesity with body mass index (BMI) of 40.0 to 44.9 in adult: Status: Acute Category: Medical Code(s): E66.01 - Morbid (severe) obesity due to excess calories; Z68.41 - Body mass index [BMI] 40.0-44.9, adult (10) BMI 40.0-44.9, adult: Status: Chronic Category: Medical Code(s): Z68.41 - Body mass index [BMI] 40.0-44.9, adult (11) Recurrent major depression resistant to treatment: Status: Acute Category: Medical Code(s): F33.9 - Major depressive disorder, recurrent, unspecified (12) Edema of right lower leg due to peripheral venous insufficiency: Status: Acute Category: Medical Code(s): I87.2 - Venous insufficiency (chronic) (peripheral); R60.0 - Localized edema (13) Wound of right foot: Status: Acute Category: Medical Code(s): S91.301A - Unspecified open wound, right foot, initial encounter (14) Cellulitis of right leg: Status: Acute Category: Medical Code(s): L03.115 - Cellulitis of right lower limb (15) Diabetic foot ulcer: Status: Acute Qualifiers: Diabetes mellitus type: type 2 Diabetic foot ulcer location: other Laterality: right Non-pressure ulcer stage: with necrosis of bone Qualified Code(s): E11.621 - Type 2 diabetes mellitus with foot ulcer; L97.514 - Non-pressure chronic ulcer of other part of right foot with necrosis of bone Category: Medical Code(s): E11.621 - Type 2 diabetes mellitus with foot ulcer; L97.509 - Non-pressure chronic ulcer of other part of unspecified foot with unspecified severity (16) Gas gangrene: Status: Acute Category: Medical Code(s): A48.0 - Gas gangrene Plan Will continue IV abx. Podiatry to follow. Will discuss further care with Dr. Jones. Dr. Jones entry - Saw patient, agree with above note. 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
--- NOTE | 2024-05-16 09:39 | HMH.IPREAS ---
Rehab IP Re-assessment Rehab IP Re-assessment Start: 05/16/24 09:28 Freq: Status: Active Protocol: Document 05/16/24 09:28 KAIDEN (Rec: 05/16/24 09:38 KAIDEN [id number]) E-signed By Kimberly Greenwood PT Subjective Subjective Subjective Pt lethargic and required multiple VCs to remain awake. Pt reported some shooting pain in RLE. Rehab IP PT Reassessment Eval Objective Appearance Patient Behavior Fatigued,Confused Difficulty following instructions moderate Ambulation Patient Able to Ambulate No Balance Ability to Arise Able, uses arms to help Sitting Balance Steady, safe Standing Balance Unsteady Dynamic Sitting Balance Ability Good Dynamic Standing Balance Ability Poor Transfers Bed Transfer Ability Moderate x 1 (50% assist) Sit to Stand Bed Transfer Ability Moderate x 2 (50% assist) Rehab IP PT Reassessment of problems, goals, plan Problems Date of Evaluation: 05/16/24 PT IP Problems Bed Mobility,Transfers,Gait, Balance,Self care,Safety Rehab Potential Rehab Potential Good Equipment Needs Assistive Devices Rolling / Wheeled Walker Plan PT Intervention Plan Bed Mobility,Transfers,Gait, Balance,Self care,Safety, Therapeutic Exercise Other Intervention Plan 1-2 times PT Plan Frequency Daily Duration LOS Discharge Goals Bed Transfer Ability Minimal x 1 (25% assist) Sit to Stand Chair Transfer Ability Moderate x 1 (50% assist) Discharge Plan PT Discharge Plan Reassessment performed this date d/t pt's change in functional status and recent R foot surgical debridement making pt NWB on RLE. Pt is not safe to return home at current level of mobility. Despite max VCs, pt was not able to comply with NWB precautions on RLE during STS transition. PT had to hold her RLE up to prevent WBing and pt required Mod A x 2 to stand from elevated EOB using RW. PT recommending short-term rehab upon d/c from [facility]. G -code Required No IP Reassessment Inpatient Rehab Reassessment Performed Yes PHYSICIAN CERTIFICATION: I certify the specified therapy services for Emiliana Painter are required, authorized, and reviewed every 30 days.
[2024-05-16] MEDS: FENOFIBRATE 134MG CAPSULE 134 MG PO (10:08)
[2024-05-16] MEDS: FLUOXETINE 20MG CAPSULE 40 MG PO (10:08)
[2024-05-16] MEDS: LISINOPRIL 20MG TABLET 20 MG PO (10:08)
[2024-05-16] MEDS: CARBIDOPA/LEVODOPA CR 50/200MG TABLET 1 EACH PO ×4 (10:08→21:31)
[2024-05-16] MEDS: METOPROLOL SUCCINATE XL 50MG TABLET 50 MG PO (10:08)
[2024-05-16] MEDS: METFORMIN 500MG TABLET 1000 MG PO ×2 (10:08→16:44)
[2024-05-16] MEDS: ASPIRIN EC 81MG TABLET 81 MG PO (10:09)
[2024-05-16] MEDS: INSULIN GLARGINE 100 UNITS/ML 3ML FLEXPEN 30 UNIT SUBCUT ×2 (10:09→21:45)
[2024-05-16] MEDS: DULOXETINE 30MG CAPSULE.DR 90 MG PO (10:09)
[2024-05-16] MEDS: VANCOMYCIN HCL 2,000 MG in 0.9 % SODIUM CHLORIDE 250 ML 125 MG IV ×2 (10:51→21:45)
[2024-05-16 11:45] LABS: POC Glucose,Bedside 88 (70-110)
[2024-05-16 11:45] LABS: POC Glucose,Bedside 99 (70-110)
--- NOTE | 2024-05-16 12:06 | P.PNANES_ITS ---
[facility] Anesthesia Record Part II Anesthesia Record Part II Discharge Time: 18:10 Destination: Second Floor PACU nurse assessment reviewed?: Yes Patient Condition:: Good Anesthesia Complications:: None Swallowing reflex intact?: Yes Airway Patency: Patent Cyanosis?: No Blood Pressure: 140/70 SaO2: 96 Respiratory Rate: 16 Pulse Rate: 91 Temperature: 97.6 F Mental Status: Alert & Oriented Pain level:: 0 Nausea and/or vomitting:: None Intake, IV Amount: 0 Hydration: Adequate
--- NOTE | 2024-05-16 14:59 | DIET.NUTRFU ---
Wound opening measures 4 x 2.5 x 2.5 cm. Will plan for wound VAC for 3 weeks then reevaluation with possible closure once the tissue is better. Ankle: bilateral: normal inspection and bilateral: swelling (lymphedema) Feet/Toes: right: amputation (s/p 4-5th partial ray amp), right: swelling, right: tenderness and right: wound (right dorsal lateral DFU s/p I&D, 4-5th partial ray amp) and bilateral: normal inspection and bilateral: hammer toe. RD consulted for wound healing. Prior to sx discussed importance of protein intake and controlling sugars. Saw patient today she has increased confusion post sx and did not eat much for breakfast or lunch. Reminded her protein intake was important. She is discharging to facility for rehab when ready, meal will be provided. Started on prostat AWC for increased protein/arginaid and zinc to promote healing, recommend to continue during rehab.
--- NOTE | 2024-05-16 15:24 | PC.NURSE ---
pt gave permission to give information to her sister kaylee if she calls.
[2024-05-16 16:54] LABS: POC Glucose,Bedside 98 (70-110)
[2024-05-16] MEDS: PHA TO NURSING INSTRUCTION 1 EACH NOTAPPLIC (21:31)
[2024-05-16] MEDS: PANTOPRAZOLE 40MG TABLET 40 MG PO (21:31)
[2024-05-16] MEDS: ATORVASTATIN 20MG TABLET 20 MG PO (21:31)
[2024-05-16] MEDS: PRO-STAT AWC 30ML LIQUID PACKET 30 ML PO (21:31)
[2024-05-16 21:42] LABS: Vancomycin,Trough 11.2 ug/mL (5.0-10.0)
[2024-05-16 21:49] LABS: POC Glucose,Bedside 142 (70-110)
--- NOTE | 2024-05-16 21:57 | PC.NURSE ---
Addendum entered by Emily Muller RN 05/16/24 22:33: A new, 24G IV was inserted into the lateral side of the left hand. Original Note: At this time, I attempted to flush the patient's IV sites (20G in right forearm and 20G in left hand). Right IV site was occluded and clotted off, and the left IV site had infiltrated. Patient's IV sites will be taken out. I will be attempting to insert a new IV site.
[2024-05-16 22:02] LABS: POC Glucose,Bedside 89 (70-110)
[2024-05-17] VITALS (7 sets, daily range): BP systolic 138–161; BP diastolic 65–80; PULSE 83–92; RESP 16–20; TEMP 36.7–36.9; O2SAT 92–97; BMI 40.6
[2024-05-17] MEDS: PIPERACILLIN/TAZO 4.5 GM in 0.9 % SODIUM CHLORIDE 100 ML IV ×3 (01:33→16:42)
--- NOTE | 2024-05-17 02:32 | PC.NURSE ---
Addendum entered by Emily Muller RN 05/17/24 02:52: A new 22G IV was inserted into the right wrist by Rita Alan RN at this time. Original Note: Patient's IV (24G) in the left hand was noticed to be leaking, and the catheter was slightly pulled out. IV was removed at this time. A new site will be regained.
[2024-05-17 03:36] LABS: Vancomycin,Peak 19.8 ug/ml (11-39)
--- NOTE | 2024-05-17 04:54 | PC.NURSE ---
Addendum entered by Emily Muller RN 05/17/24 06:07: At 21:00, patient's fingerstick blood glucose was 142; at 06:00, it was 141. Patient did not have to require insulin coverage during these times. She did, however, receive her insulin glargine earlier this shift, according to the MAR. Original Note: Patient has appeared to be much more alert, oriented, and cooperative with staff this shift; patient was not consistent with the time of day. She has been able to use her call light effectively. Patient has been pleasant with staff; however, patient continues to present a flat affect. She has expressed a few desires to get out of bed, but staff has educated her about the importance of refraining from bearing weight on her right foot due to her procedure. Patient verbalized understanding of [id number] status. Patient has been using her brief and the bedpan interchangeably to void/defecate. Patient was given a bed bath this shift, and she expressed satisfaction. She has received her scheduled PO medications and IV antibiotics per AUG. She was given cranberry juice and Diet Mountain Dew to drink; she refused a bedtime snack. Upon auscultation, patient's lung sounds were clear, S1/S2 heart sounds could be heard, and bowel sounds were active. Blood pressures and heart rate has been elevated this shift. She was observed to have eyes closed, respirations even and unlabored on room air, and no apparent distress throughout the majority of the night. Redness remains on the patient's right shoulder blade and underneath her left breast to the rib. She still has scabbing on her left knee and in her philtrum. A skin tag (consistent with patient's skin color) was also noted on the small of her back. KENDRA wrap remains in place to her right foot; right foot still has mild swelling. She has had new IV insertions this shift (see prior note). At this time, the patient is resting supine in bed. She does not have any further complaints. No acute changes noted thus far. Bed alarm on. Call light within reach.
[2024-05-17 06:20] LABS: MANUAL DIFFERENTIAL MANUAL DIFFERENTIAL (MANUAL DIFF)
[2024-05-17 06:33] LABS: Basophils % 0.5 % (0.1-2.0); Eosinophils # 0.6 K/mm3 (0.0-0.4); Eosinophils % 5.8 % (0.1-12.0); Hematocrit 34.5 % (37.0-47.0); Hemoglobin 11.7 g/dL (12.2-16.2); Lymphocytes # 1.3 K/mm3 (0.7-4.5); Lymphocytes % 13.9 % (10-50); Mean Corpuscular HGB Conc 34.1 g/dL (31.8-35.4); Mean Corpuscular Hemoglobin 29.8 pg (27.0-31.2); Mean Corpuscular Volume 87.5 fl (81-99); Monocytes # 0.5 K/mm3 (0.1-1.0); Monocytes % 5.2 % (1.7-9.3); Neutrophils % 74.6 % (37.0-80.0); Platelet Count 244 K/mm3 (142-424); Red Blood Count 3.94 M/mm3 (4.20-5.40); Red Cell Distribution Width 14.2 % (11.5-17.5); White Blood Count 9.3 K/mm3 (4.8-10.8)
[2024-05-17 06:46] LABS: Anion Gap 10.9 mEq/L (5-15); Blood Urea Nitrogen 16 mg/dl (7-17); Calcium 8.8 mg/dl (8.4-10.2); Carbon Dioxide 25 mmol/L (22.0-30.0); Chloride 108 mmol/L (98-107); Creatinine Clearance Estimated 101 mL/min (50-200); Estimated Glomerular Filt Rate 100 ml/min (>60); GFR (African American) 121 ML/MIN (>60); Glucose 158 mg/dl (74-100); Potassium 3.9 mmoL/L (3.5-5.1); Sodium 140 mmol/L (136-145)
[2024-05-17 07:06] LABS: POC Glucose,Bedside 141 (70-110)
[2024-05-17 07:56] LABS: Eosinophils % 3 % (0-3); Lymphocytes % 17 % (10-50); Monocytes % 3 % (2-9); Neutrophils % 77 % (42-76); Platelet Estimate Normal; RBC Morphology Normal; Total Cells Counted 100
[2024-05-17] MEDS: METOPROLOL SUCCINATE XL 50MG TABLET 50 MG PO (08:13)
[2024-05-17] MEDS: METFORMIN 500MG TABLET 1000 MG PO ×2 (08:13→16:42)
[2024-05-17] MEDS: DULOXETINE 30MG CAPSULE.DR 90 MG PO (08:13)
[2024-05-17] MEDS: CARBIDOPA/LEVODOPA CR 50/200MG TABLET 1 EACH PO ×4 (08:13→21:59)
[2024-05-17] MEDS: LISINOPRIL 20MG TABLET 20 MG PO (08:13)
[2024-05-17] MEDS: ASPIRIN EC 81MG TABLET 81 MG PO (08:13)
[2024-05-17] MEDS: FLUOXETINE 20MG CAPSULE 40 MG PO (08:13)
--- NOTE | 2024-05-17 08:13 | P.PN_ITS ---
Subjective *Date: 05/17/24 *Time: 08:52 Interval history: Patient is more awake and alert today. She has some pain in her right foot. She has been able to eat and she did rest last night. Medical Exam Vital signs and Labs for Last 24 Hours: Vital Signs Temp Pulse Resp BP Pulse Ox O2 Del Method 05/17/24 08:00 98.4 F 89 20 151/70 H 97 Room Air 05/17/24 06:50 Room Air 05/17/24 05:00 Room Air 05/17/24 03:47 98.1 F 91 H 18 149/65 H 93 L Room Air 05/17/24 03:00 Room Air 05/17/24 01:00 Room Air 05/17/24 00:00 98.1 F 92 H 18 138/67 92 L Room Air 05/16/24 23:00 Room Air 05/16/24 21:00 Room Air 05/16/24 20:00 91 H 18 92 L Room Air 05/16/24 19:36 98.6 F 91 H 18 144/68 H 92 L Room Air 05/16/24 19:00 Room Air 05/16/24 17:00 Room Air 05/16/24 16:00 98.1 F 95 H 20 161/88 H 91 L Room Air 05/16/24 15:00 Room Air 05/16/24 13:00 Room Air 05/16/24 12:07 16 05/16/24 11:59 98.6 F 89 20 134/69 95 Room Air 05/16/24 11:00 Room Air 05/16/24 09:00 Room Air Intake and Output 05/16/24 05/17/24 05/17/24 19:59 03:59 11:59 Intake Total 380 / 802 422 / 802 Output Total 200 / 350 150 / 350 Balance 180 / 452 272 / 452 Intake: Intake, Oral Amount 380 / 660 280 / 660 Intake, Total IV Amount 0 / 0 Infusion Intake 142 / 142 Vancomycin HCl 2,000 mg In 0.9 142 / 142 % Sodium Chloride 250 ml @ 125 mls/hr IV Q12H [facility] Rx#:[id number] Output: Output, Urine Amount 200 / 350 150 / 350 Other: Number of Unmeasured Voids 1 Number of Bowel Movements 1 1 Weight 252 lb 6.868 oz Patient Weight 05/17/24 11:59 Weight 252 lb 6.868 oz Laboratory Results - last 24 hr 05/15/24 06:04: POC Glucose 89 05/16/24 10:06: POC Glucose 99 05/16/24 11:38: POC Glucose 88 05/16/24 16:41: POC Glucose 98 05/16/24 19:15: Vancomycin Trough 11.2 H 05/16/24 21:39: POC Glucose 142 H 05/17/24 02:50: Vancomycin Peak 19.8 05/17/24 05:57: WBC 9.3, RBC 3.94 L, Hgb 11.7 L, Hct 34.5 L, MCV 87.5, MCH 29.8, MCHC 34.1, RDW 14.2, Plt Count 244, MPV 9.0, Neut % (Auto) 74.6, Lymph % (Auto) 13.9, [place] % (Auto) 5.2, Eos % (Auto) 5.8, Baso % (Auto) 0.5, Neut # (Auto) 7.0, Lymph # (Auto) 1.3, [place] # (Auto) 0.5, Eos # (Auto) 0.6 H, Baso # (Auto) 0.0, Total Counted 100, Neutrophils % (Manual) 77 H, Lymphocytes % (Manual) 17, Monocytes % (Manual) 3, Eosinophils % (Manual) 3, Platelet Estimate Normal, RBC Morphology Normal, Sodium 140, Potassium 3.9, Chloride 108 H, Carbon Dioxide 25, Anion Gap 10.9, BUN 16, Creatinine 0.60, Estimated Creat Clear 101, Estimated GFR 100, Est GFR ( Amer) 121, Glucose 158 H D, Calcium 8.8 05/17/24 06:06: POC Glucose 141 H I & O for Labs for Last 24 Hours: Intake & Output 05/14/24 05/15/24 05/16/24 05/17/24 11:59 11:59 11:59 11:59 Intake Total 1670 / 1670 1370 / 1370 1538 / 1538 802 / 802 Output Total 0 / 0 0 / 0 0 / 0 350 / 350 Balance 1670 / 1670 1370 / 1370 1538 / 1538 452 / 452 Weight 245 lb 6.4 oz 244 lb 11.41 oz 249 lb 5 oz 252 lb 6.868 oz Microbiology Reports for the Last 24 Hours: Microbiology 05/15/24 17:00 Foot,Right - Right Gram Stain - Final 05/15/24 17:00 Foot,Right - Right Surgical Biopsy Culture - Preliminary NO GROWTH AFTER 24 HOURS 05/15/24 01:40 Foot,Right - Abscess Gram Stain - Final 05/15/24 01:40 Foot,Right - Abscess Wound Culture - Preliminary Citrobacter koseri Gram Positive Cocci Gram Positive Cocci#2 05/15/24 11:57 Toe,Right Fifth Gram Stain - Final 05/15/24 11:57 Toe,Right Fifth Wound Culture - Preliminary Constitutional: Present no acute distress Respiratory: Present CTA bilaterally Cardiac: Present Reg Rate and Rhythm GI: Present soft; Absent distention or tenderness Extremities: Present edema (dressing in place on right foot) Neuro: Present alert, awake and oriented x 3 Assessment and Plan *Assessment and plan (1) Urinary tract infection: Status: Acute Qualifiers: Hematuria presence: without hematuria Urinary tract infection type: acute cystitis Qualified Code(s): N30.00 - Acute cystitis without hematuria Category: Medical Code(s): N39.0 - Urinary tract infection, site not specified (2) WILLAM (acute kidney injury): Status: Acute Category: Medical Code(s): N17.9 - Acute kidney failure, unspecified (3) Fall: Status: Acute Qualifiers: Encounter type: initial encounter Qualified Code(s): W19.XXXA - Unspecified fall, initial encounter Category: Medical Code(s): W19.XXXA - Unspecified fall, initial encounter (4) Dizziness: Status: Acute Category: Medical Code(s): R42 - Dizziness and giddiness (5) Parkinsonian syndrome: Problem Comment: Parkinsonian syndrome Status: Suspected Qualifiers: 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 Qualified Code(s): 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 Category: Medical Code(s): G20 - Parkinson's disease (6) Depression: Status: Acute Qualifiers: Active/Remission status: remission status unspecified Depression Type: major depressive disorder Major depression recurrence: unspecified whether recurrent Qualified Code(s): F32.9 - Major depressive disorder, single episode, unspecified Category: Medical Code(s): F32.A - Depression, unspecified (7) Diabetes type 2, uncontrolled: Status: Chronic Qualifiers: Glycemic state: with hyperglycemia Qualified Code(s): E11.65 - Type 2 diabetes mellitus with hyperglycemia Category: Medical Code(s): E11.65 - Type 2 diabetes mellitus with hyperglycemia (8) Long-term insulin use: Status: Acute Category: Medical Code(s): Z79.4 - penitentiary (current) use of insulin (9) Morbid obesity with body mass index (BMI) of 40.0 to 44.9 in adult: Status: Acute Category: Medical Code(s): E66.01 - Morbid (severe) obesity due to excess calories; Z68.41 - Body mass index [BMI] 40.0-44.9, adult (10) BMI 40.0-44.9, adult: Status: Chronic Category: Medical Code(s): Z68.41 - Body mass index [BMI] 40.0-44.9, adult (11) Recurrent major depression resistant to treatment: Status: Acute Category: Medical Code(s): F33.9 - Major depressive disorder, recurrent, unspecified (12) Edema of right lower leg due to peripheral venous insufficiency: Status: Acute Category: Medical Code(s): I87.2 - Venous insufficiency (chronic) (peripheral); R60.0 - Localized edema (13) Wound of right foot: Status: Acute Category: Medical Code(s): S91.301A - Unspecified open wound, right foot, initial encounter (14) Cellulitis of right leg: Status: Acute Category: Medical Code(s): L03.115 - Cellulitis of right lower limb (15) Diabetic foot ulcer: Status: Acute Qualifiers: Diabetes mellitus type: type 2 Diabetic foot ulcer location: other Laterality: right Non-pressure ulcer stage: with necrosis of bone Qualified Code(s): E11.621 - Type 2 diabetes mellitus with foot ulcer; L97.514 - Non- pressure chronic ulcer of other part of right foot with necrosis of bone Category: Medical Code(s): E11.621 - Type 2 diabetes mellitus with foot ulcer; L97.509 - Non-pressure chr onic ulcer of other part of unspecified foot with unspecified severity (16) Gas gangrene: Status: Acute Category: Medical Code(s): A48.0 - Gas gangrene Plan One wound culture is growing citrobacter and two other organisms. Other cultu res still pending. Will continue IV abx. Podiatry to follow. Will discuss further care with Dr. Jones. 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 Dr. Jones entry - Saw patient, agree with above note.
[2024-05-17] MEDS: PRO-STAT AWC 30ML LIQUID PACKET 30 ML PO ×2 (08:14→21:59)
[2024-05-17] MEDS: FENOFIBRATE 134MG CAPSULE 134 MG PO (08:14)
[2024-05-17] MEDS: INSULIN GLARGINE 100 UNITS/ML 3ML FLEXPEN 30 UNIT SUBCUT ×2 (08:15→22:00)
--- NOTE | 2024-05-17 08:17 | P.CONPHA_ITS ---
Pharmacy Consult Date: 05/17/24 Time: 08:19 Referring provider: DR PACK Reason for Consult:: VANCOMYCIN PEAK AND TROUGH OBTAINED. Allergies Allergy/AdvReac Type Severity Reaction Status Date / Time No Known Allergies Allergy Verified 04/15/24 11:23 Home Medications ?Medication ?Instructions ?Recorded ?Confirmed ?Type atorvastatin 20 mg tablet 20 mg PO HS High cholesterol 07/05/17 05/13/24 History gabapentin 300 mg capsule 300 mg PO TIDP PRN neuropathic pain 07/05/17 05/13/24 History meloxicam 7.5 mg tablet 7.5 mg PO DAILY 07/05/17 05/13/24 History metformin 500 mg tablet 1,000 mg PO BID Diabetes 07/05/17 05/13/24 History multivitamin 1 each PO DAILY Supplement 07/05/17 05/13/24 History L.acidoph, paracasei,B. lactis 10 1 each PO DAILY Supplement 10/09/18 05/13/24 History billion cell capsule biotin 5 mg capsule 5 mg PO BID 10/09/18 05/13/24 History calcium 600 mg (as 1 each PO BID Supplement 10/09/18 05/13/24 History carbonate)-vitamin D3 20 mcg (800 unit) tablet cinnamon bark-chromium picolinate 2 cap PO BID Supplement 10/09/18 05/13/24 History 500 mg-100 mcg capsule coenzyme Q10 100 mg capsule 100 mg PO DAILY Supplement 10/09/18 05/13/24 History krill ops-fropq-2-dha-epa 300 1 each PO DAILY Supplement 10/09/18 05/13/24 History mg-90 mg (27 mg-45 mg) capsule aspirin 81 mg tablet,delayed 81 mg PO DAILY 05/09/19 05/13/24 History release (Jacki Low Dose Aspirin) fenofibrate nanocrystallized 145 145 mg PO DAILY 10/30/19 05/13/24 History mg tablet lisinopril 20 mg tablet 20 mg PO DAILY Hypertension 10/30/19 05/13/24 History metoprolol succinate 50 mg 50 mg PO DAILY 07/05/22 05/13/24 History tablet,extended release 24 hr pen needle, diabetic 31 gauge x #1,200 ea 05/24/23 05/13/24 History 3/16 (BD Ultra-Fine Mini Pen Needle) duloxetine 60 mg capsule,delayed 60 mg PO DAILY #90 caps 10/09/23 05/13/24 Rx release semaglutide 7 mg tablet (Rybelsus) 7 mg PO DAILY 11/07/23 05/13/24 History duloxetine 30 mg capsule,delayed 30 mg PO DAILY 11/08/23 05/13/24 History release fluoxetine 40 mg capsule 40 mg PO DAILY 11/08/23 05/13/24 History insulin glargine 100 unit/mL 50 unit (0.5 mL) SQ BID Diabetes 11/08/23 05/13/24 Rx subcutaneous solution #1 mL insulin aspart U-100 100 unit/mL 0 unit SQ DIRECTED Diabetes 02/22/24 05/13/24 History (3 mL) subcutaneous pen ascorbic acid (vitamin C) 1,000 mg 500 mg PO DAILY 03/06/24 05/13/24 History chewable tablet carbidopa ER 50 mg-levodopa 200 mg 1 tab PO QID Parkinsonian syndrome 03/06/24 05/13/24 Rx tablet,extended release #120 tabs lumateperone 42 mg capsule 42 mg PO DAILY 05/13/24 05/13/24 History (Caplyta) New Prescriptions to Start Prescriptions: Height: 1.68 m Weight: 114.5 kg Laboratory Results:: Laboratory Results - last 24 hr 05/15/24 06:04: POC Glucose 89 05/16/24 10:06: POC Glucose 99 05/16/24 11:38: POC Glucose 88 05/16/24 16:41: POC Glucose 98 05/16/24 19:15: Vancomycin Trough 11.2 H 05/16/24 21:39: POC Glucose 142 H 05/17/24 02:50: Vancomycin Peak 19.8 05/17/24 05:57: WBC 9.3, RBC 3.94 L, Hgb 11.7 L, Hct 34.5 L, MCV 87.5, MCH 29.8, MCHC 34.1, RDW 14.2, Plt Count 244, MPV 9.0, Neut % (Auto) 74.6, Lymph % (Auto) 13.9, [place] % (Auto) 5.2, Eos % (Auto) 5.8, Baso % (Auto) 0.5, Neut # (Auto) 7.0, Lymph # (Auto) 1.3, [place] # (Auto) 0.5, Eos # (Auto) 0.6 H, Baso # (Auto) 0.0, Total Counted 100, Neutrophils % (Manual) 77 H, Lymphocytes % (Manual) 17, Monocytes % (Manual) 3, Eosinophils % (Manual) 3, Platelet Estimate Normal, RBC Morphology Normal, Sodium 140, Potassium 3.9, Chloride 108 H, Carbon Dioxide 25, Anion Gap 10.9, BUN 16, Creatinine 0.60, Estimated Creat Clear 101, Estimated GFR 100, Est GFR ( Amer) 121, Glucose 158 H D, Calcium 8.8 05/17/24 06:06: POC Glucose 141 H Medical History: Medical History (Updated 05/16/24 @ 15:07 by Jen Smith DPM) Depression Bilateral impacted cerumen Otitis externa of left ear Mixed hearing loss of left ear SNHL (sensorineural hearing loss) Dizziness Bilateral hearing loss Urinary tract infection Parkinson disease Osteoarthritis Diabetes mellitus, type 2 Hyperlipidemia Hypertension Breast cancer Bilateral impacted cerumen Chronic external ear infection Recurrent major depression resistant to treatment Assessment and Plan Assessment and plan all Dx Assessment and Plan for all problems:: VANCOMYCIN PEAK AND TROUGH LEVELS OBTAINED VANCOMYCIN TROUGH: 11.2 MCG/ML VANCOMYCIN PEAK: 19.8 MCG/ML RECOMMEND CONTINUING VANCOMYCIN 2000 MG Q12H.
[2024-05-17 08:30] LABS: POC Glucose,Bedside 184 (70-110)
[2024-05-17] MEDS: VANCOMYCIN HCL 2,000 MG in 0.9 % SODIUM CHLORIDE 250 ML 125 MG IV ×2 (10:02→22:19)
--- NOTE | 2024-05-17 10:39 | HMH.PTWOUND ---
Rehab Inpt Wound Evaluation Rehab IP Wound Evaluation Start: 05/16/24 08:03 Freq: ONCE Status: Active Protocol: Document 05/17/24 10:29 LUIS (Rec: 05/17/24 10:39 PHORCAMI [id number]) Rehab PT Wound Assessment Subjective Subjective Per H&P: This 64-year-old female patient with Parkinson. The patient who has had Parkinson's for quite some time with major depression. Has fallen 3 times at home requiring EMS to come to be able to help her up.. I was told after the third fall they brought her to the emergency room. I have talked with the ER provider and she is told me she has done a complete workup finding no significant physical injury there besides a few small abrasion to lips and side of head.. That there is a mild urinary tract infection, patient has received first dose of Rocephin in the emergency room ... 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 Wound remains open due to friability of the tissue preventing primary intention closure. Wound Right Foot Wound Type Amputation Is This a Chronic Wound No Wound Length (cm) 7.3 Wound Width (cm) 5.2 Wound Depth (cm) 2.0 Number of Zahraa 3 Wound Bed Appearance Beefy Red Percentage Granulated (%) 100 Wound Margins Description Well Defined Surrounding Tissue Appearance Bondurant,Dark Red Wound Drainage Description Serosanguineous Drainage Amount Moderate Wound Topical Solution/Irrigant Saline Irrigant Packing Type Woundvac Sponge Primary Dressing Transparent Drape Wound Debridement Method Gauze,Mechanical Wound Debridement Amount of Tissue None Removed Dressing Change Patient Tolerance Tolerated Well Drain Right Lateral Foot Drain Type Woundvac Drainage Description Serosanguineous Odor None/Absent Vacuum Pressure Setting (mmHg) 125 Vacuum Mode Setting Continuous Wound Vac Serial Number [id number] Plan/Recommendation Comment Wound VAC dressing placed with good seal at this time on post surgical R lateral foot wound. Gauze and KENDRA wrap placed over dressing for protection. Will check wound and change dressing 48-72 hours from this time. Eval Complexity Eval Charge Codes 84235 - High Complexity Ricks-Fried Wound Assessment Tool Assessment Wound size 4=Length x Width 36.1--<80 sq cm Wound depth 3=Full thickness skin loss involving damage or necrosis of Wound edges 3=Well-defined, not attached to wound base Wound undermining 1=None present Necrotic tissue type 1=Non visible Necrotic tissue amount 1=None visible Exudate type 3=Serosanguineous: thin, watery, pale red/pink Exudate amount 4=Moderate Skin color surrounding wound 2=Bright red &/or blanches to touch Peripheral tissue edema 3=Non-pitting edema extends > or= to 4 cm around wound Peripheral tissue induration 1=None present Granulation tissue 2=Bright, beefy red;75% to 100 % of wound filled &/or tissue overgrowth Epithelialization 5= < 25% wound covered Wound assessment total score 33 PHYSICIAN CERTIFICATION: I certify the specified therapy services for Emiliana Painter are required, authorized, and reviewed every 30 days.
[2024-05-17] MEDS: humaLOG 100 UNITS/ML 10ML VIAL (SSI) SUBCUT ×2 (11:42→22:01)
[2024-05-17 14:46] LABS: POC Glucose,Bedside 115 (70-110)
--- NOTE | 2024-05-17 17:05 | PC.NURSE ---
aox4 most of shift but episodes of forgetfulness noted at times. has denied pain this shift. tolerating diet well. wound vac placed today. dsg remains c/d/i.
[2024-05-17 19:35] LABS: POC Glucose,Bedside 145 (70-110)
[2024-05-17] MEDS: PANTOPRAZOLE 40MG TABLET 40 MG PO (21:59)
[2024-05-17] MEDS: ATORVASTATIN 20MG TABLET 20 MG PO (21:59)
--- NOTE | 2024-05-17 22:28 | PC.NURSE ---
Addendum entered by Emily Muller RN 05/17/24 22:57: A new 22G IV was inserted by me into the left forearm at this time. Original Note: Upon assessing the patient's IV (in right wrist), the catheter piece appeared to be slightly pulled out. I proceeded to take the rest of the catheter out; the area around this site is without redness or swelling. I will attempt to insert a new IV for the patient.
[2024-05-17 23:14] LABS: POC Glucose,Bedside 168 (70-110)
[2024-05-18] VITALS: BP 150/76; PULSE 81; RESP 18; TEMP 36.7; O2SAT 95
[2024-05-18] MEDS: PIPERACILLIN/TAZO 4.5 GM in 0.9 % SODIUM CHLORIDE 100 ML IV ×3 (01:31→16:43)
[2024-05-18 01:55] LABS: POC Glucose,Bedside 211 (70-110)
[2024-05-18] MEDS: GABAPENTIN 300MG CAPSULE 300 MG PO (02:06)
[2024-05-18 04:00] VITALS: BP 166/80; PULSE 80; RESP 18; TEMP 36.8; O2SAT 94; BMI 40.1
--- NOTE | 2024-05-18 04:23 | PC.NURSE ---
Patient is alert and oriented x4; however she has been forgetful about the current time of day. She has been pleasant and more conversational. Flat affect still presented. She was observed to have eyes closed, respirations even and unlabored on room air, and no apparent distress throughout the majority of the night. She has had a few soiled brief changes by staff. Patient verbalized understanding of remaining non-weight bearing on her right foot. She has a wound vac in place at 125mmHg, continuously draining. 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 Patient has not complained of any significant pain this shift; however, she did complain of mild burning and scratching in her feet. She was given one dose of gabapentin this shift. She was also given her scheduled medications, IV antibiotics, and insulin coverage as appropriately per MAR. She was given a Diet Mountain Dew at bedtime to drink with her medications; she refused snacks. Upon auscultation, her lungs were clear, S1/S2 heart sounds could be heard, and bowel sounds were quite active. Blood pressures have been elevated this shift; other vital signs remain stable as well. At this time, the patient does not have any further complaints. No acute changes noted thus far. Bed alarm on. Call light within reach.
[2024-05-18 06:03] LABS: POC Glucose,Bedside 120 (70-110)
[2024-05-18 08:00] VITALS: BP 159/82; PULSE 85; RESP 18; TEMP 36.6; O2SAT 96
[2024-05-18] MEDS: FLUOXETINE 20MG CAPSULE 40 MG PO (08:00)
[2024-05-18] MEDS: METFORMIN 500MG TABLET 1000 MG PO ×2 (08:00→16:42)
[2024-05-18] MEDS: METOPROLOL SUCCINATE XL 50MG TABLET 50 MG PO (08:00)
[2024-05-18] MEDS: CARBIDOPA/LEVODOPA CR 50/200MG TABLET 1 EACH PO ×4 (08:00→20:35)
[2024-05-18] MEDS: FENOFIBRATE 134MG CAPSULE 134 MG PO (08:01)
[2024-05-18] MEDS: DULOXETINE 30MG CAPSULE.DR 90 MG PO (08:01)
[2024-05-18] MEDS: ASPIRIN EC 81MG TABLET 81 MG PO (08:01)
[2024-05-18] MEDS: LISINOPRIL 20MG TABLET 20 MG PO (08:01)
[2024-05-18] MEDS: PRO-STAT AWC 30ML LIQUID PACKET 30 ML PO ×2 (08:02→20:35)
[2024-05-18] MEDS: INSULIN GLARGINE 100 UNITS/ML 3ML FLEXPEN 30 UNIT SUBCUT ×2 (08:03→20:36)
--- NOTE | 2024-05-18 08:48 | EXP.ACUTE.PN ---
Subjective *Date: 05/18/24 *Time: 08:48 Interval history: Patient with no new complaints today. PICC line was not placed yesterday. Medical Exam Vital signs and Labs for Last 24 Hours: Vital Signs Temp Pulse Resp BP Pulse Ox O2 Del Method 05/18/24 08:00 97.8 F 85 18 159/82 H 96 Room Air 05/18/24 07:00 Room Air 05/18/24 05:00 Room Air 05/18/24 04:00 98.2 F 80 18 166/80 H 94 L Room Air 05/18/24 03:00 Room Air 05/18/24 01:00 Room Air 05/18/24 00:00 98.1 F 81 18 150/76 H 95 Room Air 05/17/24 23:00 Room Air 05/17/24 21:00 Room Air 05/17/24 20:00 86 16 93 L Room Air 05/17/24 19:54 98.3 F 86 16 155/78 H 93 L Room Air 05/17/24 18:25 Room Air 05/17/24 17:00 Room Air 05/17/24 16:00 98.4 F 84 16 151/75 H 94 L 05/17/24 15:00 Room Air 05/17/24 13:00 Room Air 05/17/24 12:00 98.1 F 83 17 161/80 H 95 05/17/24 11:00 Room Air 05/17/24 09:00 Room Air Intake and Output 05/17/24 05/18/24 05/18/24 23:59 07:59 15:59 Intake Total 400 / 1432 490 / 710 220 / 710 Output Total 0 / 150 0 / 0 Balance 400 / 1282 490 / 710 220 / 710 Intake: Intake, Oral Amount 400 / 1040 240 / 460 220 / 460 Infusion Intake 250 / 250 Vancomycin HCl 2,000 mg In 0.9 250 / 250 % Sodium Chloride 250 ml @ 125 mls/hr IV Q12H [facility] Rx#:[id number] Output: Output, Urine Amount 0 / 150 0 / 0 Other: Number of Unmeasured Voids 1 1 Number of Bowel Movements 1 1 Weight 250 lb 3.2 oz Patient Weight 05/18/24 23:59 Weight 250 lb 3.2 oz Laboratory Results - last 24 hr 05/13/24 00:05: Urine Color Dark yellow, Urine Appearance Slightly cloudy, Urine pH 6.0, Ur Specific [place] >= 1.030, Urine Protein 1+ A, Urine Glucose (UA) 1+, Urine Ketones Trace, Urine Blood Negative, Urine Nitrate Positive, Urine Bilirubin Negative, Urine Urobilinogen 1.0, Ur Leukocyte Esterase Negative, Urine RBC None, Urine WBC 5-10, Ur Squamous Epith Cells 3-5, Urine Bacteria 1+ 05/14/24 05:45: POC Glucose 115 H 05/17/24 11:41: POC Glucose 211 H 05/17/24 16:41: POC Glucose 145 H 05/17/24 22:01: POC Glucose 168 H 05/18/24 05:49: POC Glucose 120 H I & O for Labs for Last 24 Hours: Intake & Output 05/15/24 05/16/24 05/17/24 05/18/24 23:59 23:59 23:59 23:59 Intake Total 1360 / 1488 618 / 1040 942 / 1432 710 / 710 Output Total 0 / 0 200 / 350 150 / 150 0 / 0 Balance 1360 / 1488 418 / 690 792 / 1282 710 / 710 Weight 244 lb 11.41 oz 249 lb 5 oz 252 lb 6.868 oz 250 lb 3.2 oz Microbiology Reports for the Last 24 Hours: Microbiology 05/13/24 00:05 Urine,Clean Catch Urine Culture - Preliminary Gram Negative Rods 05/15/24 11:57 Toe,Right Fifth Gram Stain - Final 05/15/24 11:57 Toe,Right Fifth Wound Culture - Preliminary Citrobacter koseri 05/15/24 01:40 Foot,Right - Abscess Gram Stain - Final 05/15/24 01:40 Foot,Right - Abscess Wound Culture - Final Citrobacter koseri Staphylococcus aureus Enterococcus faecalis 05/15/24 17:00 Foot,Right - Right Gram Stain - Final 05/15/24 17:00 Foot,Right - Right Surgical Biopsy Culture - Preliminary NO GROWTH AFTER 48 HOURS Constitutional: Present no acute distress Respiratory: Present CTA bilaterally Cardiac: Present Reg Rate and Rhythm GI: Present soft; Absent distention or tenderness Extremities: Present edema (wound vac in place on right foot) Neuro: Present alert, awake and oriented x 3 Assessment and Plan *Assessment and plan (1) Urinary tract infection: Status: Acute Qualifiers: Urinary tract infection type: acute cystitis Hematuria presence: without hematuria Qualified Code(s): N30.00 - Acute cystitis without hematuria Category: Medical Code(s): N39.0 - Urinary tract infection, site not specified (2) WILLAM (acute kidney injury): Status: Acute Category: Medical Code(s): N17.9 - Acute kidney failure, unspecified (3) Fall: Status: Acute Qualifiers: Encounter type: initial encounter Qualified Code(s): W19.XXXA - Unspecified fall, initial encounter Category: Medical Code(s): W19.XXXA - Unspecified fall, initial encounter (4) Dizziness: Status: Acute Category: Medical Code(s): R42 - Dizziness and giddiness (5) Parkinsonian syndrome: Problem Comment: Parkinsonian syndrome Status: Suspected Qualifiers: 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 Qualified Code(s): 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 Category: Medical Code(s): G20 - Parkinson's disease (6) Depression: Status: Acute Qualifiers: Depression Type: major depressive disorder Major depression recurrence: unspecified whether recurrent Active/Remission status: remission status unspecified Qualified Code(s): F32.9 - Major depressive disorder, single episode, unspecified Category: Medical Code(s): F32.A - Depression, unspecified (7) Diabetes type 2, uncontrolled: Status: Chronic Qualifiers: Glycemic state: with hyperglycemia Qualified Code(s): E11.65 - Type 2 diabetes mellitus with hyperglycemia Category: Medical Code(s): E11.65 - Type 2 diabetes mellitus with hyperglycemia (8) Long-term insulin use: Status: Acute Category: Medical Code(s): 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 (9) Morbid obesity with body mass index (BMI) of 40.0 to 44.9 in adult: Status: Acute Category: Medical Code(s): E66.01 - Morbid (severe) obesity due to excess calories; Z68.41 - Body mass index [BMI] 40.0-44.9, adult (10) BMI 40.0-44.9, adult: Status: Chronic Category: Medical Code(s): Z68.41 - Body mass index [BMI] 40.0-44.9, adult (11) Recurrent major depression resistant to treatment: Status: Acute Category: Medical Code(s): F33.9 - Major depressive disorder, recurrent, unspecified (12) Edema of right lower leg due to peripheral venous insufficiency: Status: Acute Category: Medical Code(s): I87.2 - Venous insufficiency (chronic) (peripheral); R60.0 - Localized edema (13) Wound of right foot: Status: Acute Category: Medical Code(s): S91.301A - Unspecified open wound, right foot, initial encounter (14) Cellulitis of right leg: Status: Acute Category: Medical Code(s): L03.115 - Cellulitis of right lower limb (15) Diabetic foot ulcer: Status: Acute Qualifiers: Diabetic foot ulcer location: other Diabetes mellitus type: type 2 Laterality: right Non-pressure ulcer stage: with necrosis of bone Qualified Code(s): E11.621 - Type 2 diabetes mellitus with foot ulcer; L97.514 - Non-pressure chronic ulcer of other part of right foot with necrosis of bone Category: Medical Code(s): E11.621 - Type 2 diabetes mellitus with foot ulcer; L97.509 - Non-pressure chronic ulcer of other part of unspecified foot with unspecified severity (16) Gas gangrene: Status: Acute Category: Medical Code(s): A48.0 - Gas gangrene Plan Awaiting PICC line, continue current treatment.
[2024-05-18] MEDS: VANCOMYCIN HCL 2,000 MG in 0.9 % SODIUM CHLORIDE 250 ML 125 MG IV ×2 (09:06→22:30)
[2024-05-18] MEDS: FUROSEMIDE 20MG TABLET 20 MG PO (09:06)
--- NOTE | 2024-05-18 09:07 | P.PN_ITS ---
Subjective *Date: 05/18/24 *Time: 09:07 Medical Exam Vital signs and Labs for Last 24 Hours: Vital Signs Temp Pulse Resp BP Pulse Ox O2 Del Method 05/18/24 08:00 97.8 F 85 18 159/82 H 96 Room Air 05/18/24 07:00 Room Air 05/18/24 05:00 Room Air 05/18/24 04:00 98.2 F 80 18 166/80 H 94 L Room Air 05/18/24 03:00 Room Air 05/18/24 01:00 Room Air 05/18/24 00:00 98.1 F 81 18 150/76 H 95 Room Air 05/17/24 23:00 Room Air 05/17/24 21:00 Room Air 05/17/24 20:00 86 16 93 L Room Air 05/17/24 19:54 98.3 F 86 16 155/78 H 93 L Room Air 05/17/24 18:25 Room Air 05/17/24 17:00 Room Air 05/17/24 16:00 98.4 F 84 16 151/75 H 94 L 05/17/24 15:00 Room Air 05/17/24 13:00 Room Air 05/17/24 12:00 98.1 F 83 17 161/80 H 95 05/17/24 11:00 Room Air Intake and Output 05/17/24 05/18/24 05/18/24 23:59 07:59 15:59 Intake Total 400 / 1432 490 / 710 220 / 710 Output Total 0 / 150 0 / 0 Balance 400 / 1282 490 / 710 220 / 710 Intake: Intake, Oral Amount 400 / 1040 240 / 460 220 / 460 Infusion Intake 250 / 250 Vancomycin HCl 2,000 mg In 0.9 250 / 250 % Sodium Chloride 250 ml @ 125 mls/hr IV Q12H [facility] Rx#:[id number] Output: Output, Urine Amount 0 / 150 0 / 0 Other: Number of Unmeasured Voids 1 1 Number of Bowel Movements 1 1 Weight 113.489 kg Patient Weight 05/18/24 23:59 Weight 113.489 kg Laboratory Results - last 24 hr 05/13/24 00:05: Urine Color Dark yellow, Urine Appearance Slightly cloudy, Urine pH 6.0, Ur Specific [place] >= 1.030, Urine Protein 1+ A, Urine Glucose (UA) 1+, Urine Ketones Trace, Urine Blood Negative, Urine Nitrate Positive, Urine Bilirubin Negative, Urine Urobilinogen 1.0, Ur Leukocyte Esterase Negative, Urine RBC None, Urine WBC 5-10, Ur Squamous Epith Cells 3-5, Urine Bacteria 1+ 05/14/24 05:45: POC Glucose 115 H 05/17/24 11:41: POC Glucose 211 H 05/17/24 16:41: POC Glucose 145 H 05/17/24 22:01: POC Glucose 168 H 05/18/24 05:49: POC Glucose 120 H I & O for Labs for Last 24 Hours: Intake & Output 05/15/24 05/16/24 05/17/24 05/18/24 23:59 23:59 23:59 23:59 Intake Total 1360 / 1488 618 / 1040 942 / 1432 710 / 710 Output Total 0 / 0 200 / 350 150 / 150 0 / 0 Balance 1360 / 1488 418 / 690 792 / 1282 710 / 710 Weight 111 kg 113.086 kg 114.5 kg 113.489 kg Microbiology Reports for the Last 24 Hours: Microbiology 05/13/24 00:05 Urine,Clean Catch Urine Culture - Preliminary Gram Negative Rods 05/15/24 11:57 Toe,Right Fifth Gram Stain - Final 05/15/24 11:57 Toe,Right Fifth Wound Culture - Preliminary Citrobacter koseri 05/15/24 01:40 Foot,Right - Abscess Gram Stain - Final 05/15/24 01:40 Foot,Right - Abscess Wound Culture - Final Citrobacter koseri Staphylococcus aureus Enterococcus faecalis 05/15/24 17:00 Foot,Right - Right Gram Stain - Final 05/15/24 17:00 Foot,Right - Right Surgical Biopsy Culture - Preliminary NO GROWTH AFTER 48 HOURS The patient's infection will respond to the chosen ABx?: Yes Is the patient receiving the right drug, dose, and route?: Yes Could a more targeted ABx be ordered?: No (WBC WNL, AFEBRILE, MULTIPLE ORGANISMS GROWNING FROM WOUND CX.)
[2024-05-18 12:00] VITALS: BP 169/83; PULSE 85; RESP 18; TEMP 36.9; O2SAT 96
[2024-05-18] MEDS: humaLOG 100 UNITS/ML 10ML VIAL (SSI) SUBCUT ×2 (12:21→16:45)
[2024-05-18 16:00] VITALS: BP 168/90; PULSE 85; RESP 18; TEMP 36.7; O2SAT 95
[2024-05-18 16:57] LABS: POC Glucose,Bedside 173 (70-110)
[2024-05-18 16:57] LABS: POC Glucose,Bedside 143 (70-110)
[2024-05-18 16:57] LABS: POC Glucose,Bedside 176 (70-110)
--- NOTE | 2024-05-18 17:19 | PC.NURSE ---
no acute changes since previous assessment. aox4 but episodes of forgetfulness t/o shift today. wound vac in place. very minimal drainage in container.
[2024-05-18 20:00] VITALS: BP 162/82; PULSE 78; RESP 16; TEMP 37.1; O2SAT 96
[2024-05-18] MEDS: ATORVASTATIN 20MG TABLET 20 MG PO (20:35)
[2024-05-18] MEDS: PANTOPRAZOLE 40MG TABLET 40 MG PO (20:35)
[2024-05-18 20:51] LABS: POC Glucose,Bedside 153 (70-110)
[2024-05-19] VITALS: BP 161/76; PULSE 72; RESP 16; TEMP 36.7; O2SAT 97
[2024-05-19] MEDS: PIPERACILLIN/TAZO 4.5 GM in 0.9 % SODIUM CHLORIDE 100 ML IV ×3 (01:20→17:01)
[2024-05-19 04:00] VITALS: BP 166/79; PULSE 77; RESP 16; TEMP 36.6; O2SAT 96; BMI 38.5
[2024-05-19 05:57] LABS: POC Glucose,Bedside 141 (70-110)
[2024-05-19 07:39] VITALS: BP 160/82; PULSE 83; RESP 18; TEMP 36.4; O2SAT 97
[2024-05-19] MEDS: DULOXETINE 30MG CAPSULE.DR 90 MG PO (08:20)
[2024-05-19] MEDS: FLUOXETINE 20MG CAPSULE 40 MG PO (08:20)
[2024-05-19] MEDS: METFORMIN 500MG TABLET 1000 MG PO ×2 (08:20→17:01)
[2024-05-19] MEDS: METOPROLOL SUCCINATE XL 50MG TABLET 50 MG PO (08:21)
[2024-05-19] MEDS: FENOFIBRATE 134MG CAPSULE 134 MG PO (08:21)
[2024-05-19] MEDS: PRO-STAT AWC 30ML LIQUID PACKET 30 ML PO ×2 (08:21→20:46)
[2024-05-19] MEDS: ASPIRIN EC 81MG TABLET 81 MG PO (08:21)
[2024-05-19] MEDS: CARBIDOPA/LEVODOPA CR 50/200MG TABLET 1 EACH PO ×4 (08:21→20:46)
[2024-05-19] MEDS: FUROSEMIDE 20MG TABLET 20 MG PO (08:21)
[2024-05-19] MEDS: LISINOPRIL 20MG TABLET 20 MG PO (08:21)
--- NOTE | 2024-05-19 08:39 | EXP.ACUTE.PN ---
Subjective *Date: 05/19/24 *Time: 08:39 Interval history: Patient with no new complaints today. Medical Exam Vital signs and Labs for Last 24 Hours: Vital Signs Temp Pulse Resp BP Pulse Ox O2 Del Method 05/19/24 07:39 97.6 F 83 18 160/82 H 97 Room Air 05/19/24 05:00 Room Air 05/19/24 04:00 97.8 F 77 16 166/79 H 96 Room Air 05/19/24 03:00 Room Air 05/19/24 01:00 Room Air 05/19/24 00:00 98.0 F 72 16 161/76 H 97 Room Air 05/18/24 23:00 Room Air 05/18/24 21:00 Room Air 05/18/24 20:00 Room Air 05/18/24 20:00 98.7 F 78 16 162/82 H 96 Room Air 05/18/24 18:47 Room Air 05/18/24 16:00 98.1 F 85 18 168/90 H 95 Room Air 05/18/24 12:00 98.5 F 85 18 169/83 H 96 Room Air 05/18/24 09:00 Room Air Intake and Output 05/18/24 05/19/24 05/19/24 23:59 07:59 15:59 Intake Total 120 / 1810 590 / 590 Output Total 0 / 0 0 / 0 Balance 120 / 1810 590 / 590 Intake: Intake, Oral Amount 120 / 1210 240 / 240 Intake, Total IV Amount 350 / 350 Piperacillin/Tazo 4.5 gm In 0.9 100 / 100 % Sodium Chloride 100 ml @ 200 mls/hr IV Q8H [facility] Rx#:[id number] Vancomycin HCl 2,000 mg In 0.9 250 / 250 % Sodium Chloride 250 ml @ 125 mls/hr IV Q12H [facility] Rx#:[id number] Output: Output, Urine Amount 0 / 0 0 / 0 Other: Number of Unmeasured Voids 1 1 Number of Bowel Movements 1 1 Weight 240 lb 1.6 oz Patient Weight 05/19/24 23:59 Weight 240 lb 1.6 oz Laboratory Results - last 24 hr 05/18/24 07:59: POC Glucose 143 H 05/18/24 10:18: POC Glucose 173 H 05/18/24 16:42: POC Glucose 176 H 05/18/24 20:33: POC Glucose 153 H 05/19/24 05:08: POC Glucose 141 H I & O for Labs for Last 24 Hours: Intake & Output 05/16/24 05/17/24 05/18/24 05/19/24 23:59 23:59 23:59 23:59 Intake Total 618 / 1040 942 / 1432 1220 / 1810 590 / 590 Output Total 200 / 350 150 / 150 0 / 0 0 / 0 Balance 418 / 690 792 / 1282 1220 / 1810 590 / 590 Weight 249 lb 5 oz 252 lb 6.868 oz 250 lb 3.2 oz 240 lb 1.6 oz Microbiology Reports for the Last 24 Hours: Microbiology 05/13/24 00:05 Urine,Clean Catch Urine Culture - Final Klebsiella pneumoniae 05/15/24 11:57 Toe,Right Fifth Gram Stain - Final 05/15/24 11:57 Toe,Right Fifth Wound Culture - Final Citrobacter koseri Staphylococcus capitis Enterococcus faecalis 05/15/24 17:00 Foot,Right - Right Gram Stain - Final 05/15/24 17:00 Foot,Right - Right Surgical Biopsy Culture - Preliminary NO GROWTH AFTER 72 HOURS 05/15/24 01:40 Foot,Right - Abscess Gram Stain - Final 05/15/24 01:40 Foot,Right - Abscess Wound Culture - Final Citrobacter koseri Staphylococcus aureus Enterococcus faecalis Constitutional: Present no acute distress Respiratory: Present CTA bilaterally Cardiac: Present Reg Rate and Rhythm GI: Present soft; Absent distention or tenderness Extremities: Present edema (wound vac in place on right foot) Neuro: Present alert, awake and oriented x 3 Assessment and Plan *Assessment and plan (1) Urinary tract infection: Status: Acute Qualifiers: Urinary tract infection type: acute cystitis Hematuria presence: without hematuria Qualified Code(s): N30.00 - Acute cystitis without hematuria Category: Medical Code(s): N39.0 - Urinary tract infection, site not specified (2) WILLAM (acute kidney injury): Status: Acute Category: Medical Code(s): N17.9 - Acute kidney failure, unspecified (3) Fall: Status: Acute Qualifiers: Encounter type: initial encounter Qualified Code(s): W19.XXXA - Unspecified fall, initial encounter Category: Medical Code(s): W19.XXXA - Unspecified fall, initial encounter (4) Dizziness: Status: Acute Category: Medical Code(s): R42 - Dizziness and giddiness (5) Parkinsonian syndrome: Problem Comment: Parkinsonian syndrome Status: Suspected Qualifiers: 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 Qualified Code(s): 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 Category: Medical Code(s): G20 - Parkinson's disease (6) Depression: Status: Acute Qualifiers: Depression Type: major depressive disorder Major depression recurrence: unspecified whether recurrent Active/Remission status: remission status unspecified Qualified Code(s): F32.9 - Major depressive disorder, single episode, unspecified Category: Medical Code(s): F32.A - Depression, unspecified (7) Diabetes type 2, uncontrolled: Status: Chronic Qualifiers: Glycemic state: with hyperglycemia Qualified Code(s): E11.65 - Type 2 diabetes mellitus with hyperglycemia Category: Medical Code(s): E11.65 - Type 2 diabetes mellitus with hyperglycemia (8) Long-term insulin use: Status: Acute Category: Medical Code(s): Z79.4 - 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 insulin (9) Morbid obesity with body mass index (BMI) of 40.0 to 44.9 in adult: Status: Acute Category: Medical Code(s): E66.01 - Morbid (severe) obesity due to excess calories; Z68.41 - Body mass index [BMI] 40.0-44.9, adult (10) BMI 40.0-44.9, adult: Status: Chronic Category: Medical Code(s): Z68.41 - Body mass index [BMI] 40.0-44.9, adult (11) Recurrent major depression resistant to treatment: Status: Acute Category: Medical Code(s): F33.9 - Major depressive disorder, recurrent, unspecified (12) Edema of right lower leg due to peripheral venous insufficiency: Status: Acute Category: Medical Code(s): I87.2 - Venous insufficiency (chronic) (peripheral); R60.0 - Localized edema (13) Wound of right foot: Status: Acute Category: Medical Code(s): S91.301A - Unspecified open wound, right foot, initial encounter (14) Cellulitis of right leg: Status: Acute Category: Medical Code(s): L03.115 - Cellulitis of right lower limb (15) Diabetic foot ulcer: Status: Acute Qualifiers: Diabetic foot ulcer location: other Diabetes mellitus type: type 2 Laterality: right Non-pressure ulcer stage: with necrosis of bone Qualified Code(s): E11.621 - Type 2 diabetes mellitus with foot ulcer; L97.514 - Non-pressure chronic ulcer of other part of right foot with necrosis of bone Category: Medical Code(s): E11.621 - Type 2 diabetes mellitus with foot ulcer; L97.509 - Non-pressure chronic ulcer of other part of unspecified foot with unspecified severity (16) Gas gangrene: Status: Acute Category: Medical Code(s): A48.0 - Gas gangrene Plan Polymicrobial wound infection, some cultures still pending, continue current treatment.
[2024-05-19] MEDS: INSULIN GLARGINE 100 UNITS/ML 3ML FLEXPEN 30 UNIT SUBCUT ×2 (09:49→20:47)
[2024-05-19] MEDS: ENOXAPARIN 40MG/0.4ML SYRINGE 40 MG SUBCUT (09:50)
[2024-05-19] MEDS: AMLODIPINE 5MG TABLET 5 MG PO (09:50)
[2024-05-19] MEDS: VANCOMYCIN HCL 2,000 MG in 0.9 % SODIUM CHLORIDE 250 ML 125 MG IV ×2 (11:21→21:07)
[2024-05-19] MEDS: humaLOG 100 UNITS/ML 10ML VIAL (SSI) SUBCUT (11:25)
[2024-05-19 11:33] VITALS: BP 159/90; PULSE 85; RESP 18; TEMP 36.8; O2SAT 93
[2024-05-19 11:34] LABS: POC Glucose,Bedside 173 (70-110)
[2024-05-19 15:55] VITALS: BP 167/85; PULSE 80; RESP 18; TEMP 36.8; O2SAT 94
[2024-05-19 17:11] LABS: POC Glucose,Bedside 211 (70-110)
[2024-05-19 17:11] LABS: POC Glucose,Bedside 129 (70-110)
[2024-05-19 20:00] VITALS: BP 163/75; PULSE 79; RESP 18; TEMP 36.9; O2SAT 94
[2024-05-19 20:46] LABS: POC Glucose,Bedside 133 (70-110)
[2024-05-19] MEDS: ATORVASTATIN 20MG TABLET 20 MG PO (20:46)
[2024-05-19] MEDS: PANTOPRAZOLE 40MG TABLET 40 MG PO (20:47)
[2024-05-20] VITALS: BP 168/82; PULSE 76; RESP 16; TEMP 36.8; O2SAT 96
[2024-05-20] MEDS: PIPERACILLIN/TAZO 4.5 GM in 0.9 % SODIUM CHLORIDE 100 ML IV (00:26)
[2024-05-20 04:00] VITALS: BP 163/87; PULSE 83; RESP 16; TEMP 36.7; O2SAT 96; BMI 39.2
--- NOTE | 2024-05-20 04:26 | PC.NURSE ---
Uneventful shift for pt. She is A/O X 3 and has denied pain or discomfort throughout the night. Wound vac to right foot has had scant drainage, with dressing C/D/I. She has not been out of bed and has had several episodes of B/B incontinence. FSBS was 133 with no coverage required at 9 pm. VS have been stable for pt
[2024-05-20 05:33] LABS: POC Glucose,Bedside 144 (70-110)
--- NOTE | 2024-05-20 06:30 | P.PN_ITS ---
Subjective *Date: 05/20/24 *Time: 08:05 Interval history: Patient was doing very well this morning, was helping her with her cereal for breakfast. Patient denied any pain with her right foot, wound vac was in place and draining appropriately. Ortho Exam (Inpt) Vital signs and Labs for Last 24 Hours: Temp Pulse Resp BP Pulse Ox O2 Del Method O2 Flow Rate 98.1 F 83 16 163/87 H 96 Room Air 2 05/20/24 04:00 05/20/24 04:00 05/20/24 04:00 05/20/24 04:00 05/20/24 04:00 05/20/24 05:00 05/15/24 23:55 Laboratory Results - last 24 hr 05/19/24 09:48: POC Glucose 211 H 05/19/24 11:21: POC Glucose 173 H 05/19/24 16:58: POC Glucose 129 H 05/19/24 20:38: POC Glucose 133 H 05/20/24 05:26: POC Glucose 144 H I & O for Labs for Last 24 Hours: Intake & Output 05/17/24 05/18/24 05/19/24 05/20/24 23:59 23:59 23:59 23:59 Intake Total 942 / 942 1220 / 1220 1250 / 1250 250 / 250 Output Total 150 / 150 0 / 0 0 / 0 0 / 0 Balance 792 / 792 1220 / 1220 1250 / 1250 250 / 250 Weight 252 lb 6.868 oz 250 lb 3.2 oz 240 lb 1.6 oz 244 lb 3.2 oz Microbiology Reports for the Last 24 Hours: Microbiology 05/15/24 17:00 Foot,Right - Right Gram Stain - Final 05/15/24 17:00 Foot,Right - Right Surgical Biopsy Culture - Preliminary 05/15/24 17:00 Foot,Right - Right Fourth Bone Culture - Preliminary 05/16/24 13:21 Urine,Clean Catch Urine Culture - Final No growth. 05/13/24 00:05 Urine,Clean Catch Urine Culture - Final Klebsiella pneumoniae 05/15/24 11:57 Toe,Right Fifth Gram Stain - Final 05/15/24 11:57 Toe,Right Fifth Wound Culture - Final Citrobacter koseri Staphylococcus capitis Enterococcus faecalis Constitutional: Present morbidly obese, chronically ill appearing and somnolent Head: Present normocephalic Eyes: Present as per HPI Neck: Present normal inspection Respiratory: Present normal respiratory effort Cardiac: Present pedal pulses present GI: Present soft Rectal (female): Present deferred (female): Present deferred Extremities: Present tenderness and edema Skin: Present erythema Comment:: Right lower extremity cellulitis was marked out 05/15/2024. The ascending cellulitis has receded from over the weekend. Palpable pulses to the right foot. Incision with open wound to the right dorsal lateral foot. Wound Vac removed today, the retention sutures/proximal reji were removed at bedside on to reduce tension on the skin. Wound was Cleaned with betadine swabs, and explored and no signs of purulence noted. Wound opening measures 3 x 2.5 x 2.5 cm. Will plan for wound VAC for 3 weeks then reevaluation with possible closure once the tissue is better. * If patient is discharged to SNF she will need her vac placed back on wound, if she goes home with [facility] then we will have [facility] WC (Ethan) re-apply the vac before discharge. Neuro: Present awake Ankle: bilateral: normal inspection and bilateral: swelling (lymphedema; improving ) Feet/Toes: right: amputation (s/p 4-5th partial ray amp), right: swelling, right: tenderness and right: wound (right dorsal lateral DFU s/p I&D, 4-5th par tial ray amp) and bilateral: normal inspection and bilateral: hammer toe Assessment and Plan *Assessment and plan (1) Cellulitis of right leg: Status: Acute Category: Medical Code(s): L03.115 - Cellulitis of right lower limb (2) Diabetic foot ulcer: Status: Acute Qualifiers: Diabetes mellitus type: type 2 Diabetic foot ulcer location: other Laterality: right Non-pressure ulcer stage: with necrosis of bone Qualified Code(s): E11.621 - Type 2 diabetes mellitus with foot ulcer; L97.514 - Non- pressure chronic ulcer of other part of right foot with necrosis of bone Category: Medical Code(s): E11.621 - Type 2 diabetes mellitus with foot ulcer; L97.509 - Non-pressure chronic ulcer of other part of unspecified foot with unspecified severity (3) Gas gangrene: Status: Acute Category: Medical Code(s): A48.0 - Gas gangrene (4) Parkinsonian syndrome: Problem Comment: Parkinsonian syndrome Status: Suspected Qualifiers: 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 Qualified Code(s): 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 Category: Medical Code(s): G20 - Parkinson's disease (5) Diabetes type 2, uncontrolled: Status: Chronic Qualifiers: Glycemic state: with hyperglycemia Qualified Code(s): E11.65 - Type 2 diabetes mellitus with hyperglycemia Category: Medical Code(s): E11.65 - Type 2 diabetes mellitus with hyperglycemia (6) Long-term insulin use: Status: Acute Category: Medical Code(s): Z79.4 - long term care pharmacist (current) use of insulin (7) Morbid obesity with body mass index (BMI) of 40.0 to 44.9 in adult: Status: Acute Category: Medical Code(s): E66.01 - Morbid (severe) obesity due to excess calories; Z68.41 - Body mass index [BMI] 40.0-44.9, adult (8) Edema of right lower leg due to peripheral venous insufficiency: Status: Acute Category: Medical Code(s): I87.2 - Venous insufficiency (chronic) (peripheral); R60.0 - Localized edema (9) Osteomyelitis of right foot: Status: Acute Qualifiers: Osteomyelitis type: chronic, with draining sinus Qualified Code(s): M86.471 - Chronic osteomyelitis with draining sinus, right ankle and foot Category: Medical Code(s): M86.9 - Osteomyelitis, unspecified (10) Onychodystrophy: Status: Chronic Category: Medical Code(s): L60.3 - Nail dystrophy Plan Right foot 4th, 5th toe DFU between toes, cellulitis: -Patient was unsure of when she actually started to have the ulceration to the right foot -Right foot cellulitis outlined and marked on foot and lower leg -Right fifth toe wound culture was taken, malodorous, copious purulent drainage noted -Ulceration probes to bone, x-ray shows gas formation -Patient made n.p.o. -Surgical consent obtained for right fourth and fifth toe amputation, incision and drainage, debridement of nonviable soft tissue and bone, metatarsal resection for bone biopsy -Right foot DFU was cleaned with Betadine and then dressed with Betadine soaked gauze and covered with Coban until surgery -Stat right foot CT scan ordered -Patient will be taken to surgery later this afternoon -Patient to continue to be receive IV antibiotics Vanco and Zosyn per Dr. Jones's orders -All orders per Dr. Smith Surgery, 05/15/24: S/p Right foot incision and drainage, wide excisional debridement nonviable soft tissue and bone, right partial 4-5th ray amputation Intraop Specimens: pending Micro: Right foot wound culture Right 4-5th toe bone culture Right 4-5th metatarsal bone culture Path: Right 4-5th toes 4th metatarsal bone proximal margin 5th metatarsal bone proximal margin 05/13/24, Ha1c 8.1% 05/15/24, labs: 11.7, esr 83, crp 284.1, cr 0.6, gfr 100, glucose 92, albumin 3.8 05/16/24, labs: wbc 10.5, esr 118, crp 207.5, cr 0.6, gfr 100, glucose 93, albumin 3.3 05/20/24, labs: wbc 11.6, esr , crp 36.3, cr 0.8, gfr 72, glucose 144, albumin 3.7 05/20/24, POD #5 -S/p Right foot incision and drainage, wide excisional debridement nonviable soft tissue and bone, right partial 4-5th ray amputation -Post amp: review x-rays 3v foot, proximal gas or OM. -Labs reviewed: inflammatory markers: wbc and crp trending down -Based on intraop findings these will take some time to normalize -Discussed the importance of proper hygiene and maintaining a clean healthy wound bed to avoid the infection spreading. -Discussed local wound care, abx for cellulitis, gas, OM -Patient understands she will likely need another procedure in a few weeks for surgical debridement and closure once the skin demarcates and the tissue calms down -Given extent of gas infection and plus tissue is too inflamed, fragile and bruised to attempt any kind of closure at this point -Right foot dsg intact -Dsg removed, wound cleaned with betadine and explored at the bedside -Tissue quality was poor. Sesar. Dr. Smith removed sutures/retention reji were removed to reduce tension of the skin line -No new evidence of purulence or drainage -Today the wound packed open with Betadine soaked gauze, DSD applied -NWB to RLE in post op shoe/short fx boot (will need prior to d/c) -Continue IV abx: Monica Mtzn per PCP -I recommend 4-6 wks PICC, IV abx for broad-spectrum coverage for both the soft tissue and bone infection component -Right lateral foot: s/p I&D, tissue not good for closure, packed open -Will need [facility] wound care -Plan for right lateral foot: wound vac @125mmHg med continuous -Plan for twice weekly vac changes (Mon/ or /Mon schedule) -Monitor intraop cultures/biopsies -Pt would benefit from SNF for PICC, IV abx and nursing wound VAC change -PICC line was placed at bedside this morning. -Will also need f/u arranged with Podiatry -All orders per Dr. Smith [facility] orders: -NWB to RLE in post op shoe/short fx boot -Plan for right foot wound vac @125mmHg med continuous twice weekly changes (/ or /Mon) -PICC, IV abx per PCP recs -Weekly labs (cbc, cmp, esr, crp) fax to Podiatry ([phone]) -F/u with Podiatry weekly
[2024-05-20 06:48] LABS: Alanine Aminotransferase 9 U/L (12-78); Albumin Level 3.7 g/dl (3.5-5.0); Alkaline Phosphatase 65 U/L (38-126); Anion Gap 14.4 mEq/L (5-15); Aspartate Amino Transferase 42 U/L (14-36); Bilirubin,Total 0.6 mg/dl (0.2-1.3); Blood Urea Nitrogen 22 mg/dl (7-17); C-Reactive Protein 36.3 mg/L (0-4); Calcium 9.4 mg/dl (8.4-10.2); Carbon Dioxide 26 mmol/L (22.0-30.0); Chloride 108 mmol/L (98-107); Creatinine Clearance Estimated 98 mL/min (50-200); Estimated Glomerular Filt Rate 72 ml/min (>60); GFR (African American) 87 ML/MIN (>60); Globulin 3.6 g/dL (1.3-3.2); Glucose 156 mg/dl (74-100); Potassium 3.4 mmoL/L (3.5-5.1); Sodium 145 mmol/L (136-145); Total Protein,Serum 7.3 g/dl (6.3-8.2)
[2024-05-20 07:55] LABS: Basophils # 0.1 K/mm3 (0-0.2); Basophils % 0.8 % (0.1-2.0); Eosinophils # 0.4 K/mm3 (0.0-0.4); Eosinophils % 3.6 % (0.1-12.0); Hematocrit 39.8 % (37.0-47.0); Hemoglobin 13.2 g/dL (12.2-16.2); Lymphocytes # 1.6 K/mm3 (0.7-4.5); Lymphocytes % 13.5 % (10-50); Mean Corpuscular HGB Conc 33.2 g/dL (31.8-35.4); Mean Corpuscular Hemoglobin 29.1 pg (27.0-31.2); Mean Corpuscular Volume 87.6 fl (81-99); Monocytes # 0.7 K/mm3 (0.1-1.0); Monocytes % 6.1 % (1.7-9.3); Neutrophils # 8.8 K/mm3 (1.8-7.8); Neutrophils % 75.9 % (37.0-80.0); Platelet Count 344 K/mm3 (142-424); Red Blood Count 4.55 M/mm3 (4.20-5.40); White Blood Count 11.6 K/mm3 (4.8-10.8)
[2024-05-20 08:00] VITALS: BP 161/72; PULSE 86; RESP 18; TEMP 37.1; O2SAT 96
--- NOTE | 2024-05-20 08:21 | P.PN_ITS ---
Subjective *Date: 05/20/24 *Time: 09:13 Interval history: Patient has had a busy morning. She had Cheerios for breakfast. Podiatry has been in and changed her right foot dressing. Wound VAC was left off. She had a PICC line placed as well. Patient states she slept at intervals. She feels she is eating okay. She has not been out of bed in the last few days. She denies any respiratory issues and chest pain. White blood cell count is 11,600 this a.m. Hemoglobin is 13.2 and hematocrit 39.8. Blood chemistries show low potassium at 3.4. BUN is 22 and creatinine 0.8. Patient currently is on Zosyn and vancomycin. Medical Exam Vital signs and Labs for Last 24 Hours: Vital Signs Temp Pulse Resp BP Pulse Ox O2 Del Method 05/20/24 06:52 Room Air 05/20/24 05:00 Room Air 05/20/24 04:00 98.1 F 83 16 163/87 H 96 Room Air 05/20/24 03:00 Room Air 05/20/24 00:00 98.3 F 76 16 168/82 H 96 Room Air 05/19/24 23:00 Room Air 05/19/24 21:00 Room Air 05/19/24 20:00 98.4 F 79 18 163/75 H 94 L Room Air 05/19/24 19:59 Room Air 05/19/24 18:14 Room Air 05/19/24 17:00 Room Air 05/19/24 15:55 98.2 F 80 18 167/85 H 94 L Room Air 05/19/24 15:00 Room Air 05/19/24 13:00 Room Air 05/19/24 11:33 98.2 F 85 18 159/90 H 93 L Room Air 05/19/24 10:39 Room Air 05/19/24 09:00 Room Air Intake and Output 05/19/24 05/20/24 05/20/24 19:59 03:59 11:59 Intake Total 540 / 540 250 / 790 Output Total 0 / 0 0 / 0 0 / 0 Balance 540 / 540 250 / 790 0 / 790 Intake: Intake, Oral Amount 540 / 540 Intake, Total IV Amount 250 / 250 Vancomycin HCl 2,000 mg In 0.9 250 / 250 % Sodium Chloride 250 ml @ 125 mls/hr IV Q12H [facility] Rx#:[id number] Output: Output, Urine Amount 0 / 0 0 / 0 0 / 0 Other: Number of Unmeasured Voids 1 2 1 Number of Bowel Movements 1 1 Weight 244 lb 3.2 oz Patient Weight 05/20/24 11:59 Weight 244 lb 3.2 oz Laboratory Results - last 24 hr 05/19/24 09:48: POC Glucose 211 H 05/19/24 11:21: POC Glucose 173 H 05/19/24 16:58: POC Glucose 129 H 05/19/24 20:38: POC Glucose 133 H 05/20/24 05:26: POC Glucose 144 H 05/20/24 05:52: WBC 11.6 H, RBC 4.55, Hgb 13.2, Hct 39.8, MCV 87.6, MCH 29.1, MCHC 33.2, RDW 14.0, Plt Count 344 D, MPV 9.0, Neut % (Auto) 75.9, Lymph % (Auto) 13.5, [place] % (Auto) 6.1, Eos % (Auto) 3.6, Baso % (Auto) 0.8, Neut # (Auto) 8.8 H, Lymph # (Auto) 1.6, [place] # (Auto) 0.7, Eos # (Auto) 0.4, Baso # (Auto) 0.1, Sodium 145, Potassium 3.4 L, Chloride 108 H, Carbon Dioxide 26, Anion Gap 14.4, BUN 22 H D, Creatinine 0.80 D, Estimated Creat Clear 98, Estimated GFR 72, Est GFR ( Amer) 87 D, Glucose 156 H, Calcium 9.4, Total Bilirubin 0.6, AST 42 H, ALT 9 L, Alkaline Phosphatase 65, C-Reactive Protein 36.3 H, Total Protein 7.3, Albumin 3.7, Globulin 3.6 H, Albumin/Globulin Ratio 1.0 L I & O for Labs for Last 24 Hours: Intake & Output 05/17/24 05/18/24 05/19/24 05/20/24 11:59 11:59 11:59 11:59 Intake Total 922 / 922 1230 / 1230 1100 / 1100 790 / 790 Output Total 350 / 350 0 / 0 0 / 0 0 / 0 Balance 572 / 572 1230 / 1230 1100 / 1100 790 / 790 Weight 252 lb 6.868 oz 250 lb 3.2 oz 240 lb 1.6 oz 244 lb 3.2 oz Microbiology Reports for the Last 24 Hours: Microbiology 05/15/24 17:00 Foot,Right - Right Gram Stain - Final 05/15/24 17:00 Foot,Right - Right Surgical Biopsy Culture - Preliminary 05/15/24 17:00 Foot,Right - Right Fourth Bone Culture - Preliminary 05/16/24 13:21 Urine,Clean Catch Urine Culture - Final No growth. 05/13/24 00:05 Urine,Clean Catch Urine Culture - Final Klebsiella pneumoniae 05/15/24 11:57 Toe,Right Fifth Gram Stain - Final 05/15/24 11:57 Toe,Right Fifth Wound Culture - Final Citrobacter koseri Staphylococcus capitis Enterococcus faecalis Constitutional: Present no acute distress Comment:: Speech is much more clear and precise this a.m. Respiratory: Present CTA bilaterally (Anteriorly and posteriorly. Patient assist with exam.) Cardiac: Present Reg Rate and Rhythm GI: Present soft, hyperactive bowel sounds and other (Obese); Absent distention, tenderness or guarding (female): Present other (Pure wick in place) Extremities: Absent edema Comment:: Dressing on right foot is clean and dry. It is just been changed. Wound VAC was left off. There is no erythema above the dressing. There is no edema of either leg. Toenails have also been clipped this a.m. Neuro: Present oriented x 3 Comment:: Mentation is much better this a.m. Assessment and Plan *Assessment and plan (1) Cellulitis of right leg: Status: Acute Category: Medical Code(s): L03.115 - Cellulitis of right lower limb (2) Diabetic foot ulcer: Status: Acute Qualifiers: Diabetes mellitus type: type 2 Diabetic foot ulcer location: other Laterality: right Non-pressure ulcer stage: with necrosis of bone Qualified Code(s): E11.621 - Type 2 diabetes mellitus with foot ulcer; L97.514 - Non- pressure chronic ulcer of other part of right foot with necrosis of bone Category: Medical Code(s): E11.621 - Type 2 diabetes mellitus with foot ulcer; L97.509 - Non-pressure chronic ulcer of other part of unspecified foot with unspecified severity (3) Gas gangrene: Status: Acute Category: Medical Code(s): A48.0 - Gas gangrene (4) Parkinsonian syndrome: Problem Comment: Parkinsonian syndrome Status: Suspected Qualifiers: 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 Qualified Code(s): 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41 - Body mass index [BMI] 40.0-44.9, adult (8) Edema of right lower leg due to peripheral venous insufficiency: Status: Acute Category: Medical Code(s): I87.2 - Venous insufficiency (chronic) (peripheral); R60.0 - Localized edema (9) Osteomyelitis of right foot: Status: Acute Qualifiers: Osteomyelitis type: chronic, with draining sinus Qualified Code(s): M86.471 - Chronic osteomyelitis with draining sinus, right ankle and foot Category: Medical Code(s): M86.9 - Osteomyelitis, unspecified (10) Onychodystrophy: Status: Chronic Category: Medical Code(s): L60.3 - Nail dystrophy (11) Hypokalemia: Status: Acute Category: Medical Code(s): E87.6 - Hypokalemia Plan Will add p.o. potassium today. Patient has a bed at [place] and most likely will be transferred today. See note from podiatry as follows. Per Podiatry: SNF orders: -NWB to RLE in post op shoe/short fx boot -Plan for right foot wound vac @125mmHg med continuous twice weekly changes (Mon/Thurs or /Mon) -PICC, IV abx per PCP recs -Weekly labs (cbc, cmp, esr, crp) fax to Podiatry ([phone]) -F/u with Podiatry weekly Dr. Jones entry - Saw patient, agree with above note. Stop Andres, start Invanz today, cont. Vanc.
[2024-05-20 08:23] LABS: Erythrocyte Sedimentation Rate 61 mm/hr (0-30)
[2024-05-20] MEDS: ENOXAPARIN 40MG/0.4ML SYRINGE 40 MG SUBCUT (08:44)
[2024-05-20] MEDS: INSULIN GLARGINE 100 UNITS/ML 3ML FLEXPEN 30 UNIT SUBCUT (08:44)
--- NOTE | 2024-05-20 08:45 | EXP.DC.SUM ---
General Admission date:: 05/13/24 Discharge date: 05/20/24 HPI HPI HPI: This 64-year-old female patient with Parkinson. The patient who has had Parkinson's for quite some time with major depression. Has fallen 3 times at home requiring EMS to come to be able to help her up.. I was told after the third fall they brought her to the emergency room. I have talked with the ER provider and she is told me she has done a complete workup finding no significant physical injury there besides a few small abrasion to lips and side of head.. That there is a mild urinary tract infection, patient has received first dose of Rocephin in the emergency room. I have agreed to except the patient and will place her on the floor due to her being a danger with her new onset of falling. The patient states that normally she uses a cane in the house, or sometimes a walker. She does not know why she is falling she just feels terribly dizzy and then she goes down. She stated she does not feel any weaker than she normally feels. I personally evaluated the imaging and see that there is no significant findings. Going over her labs note that she is low on magnesium that has been replaced in the emergency room and that she has a mild urinary tract infection with positive nitrites and a few WBCs. Have gone through the records and I found that they have been changing her medicines recently due to severe depression. Patient saw the neurologist and carbidopa was changed from a short acting to a long-acting on 03 06 she also was then started on a medication rexalit and had that increased on . Return to the office and also had increased on 05/03/24,. Noting that one of the side effects is dizziness. .I do feel that the patient needs to be admitted tonight for personal safety to evaluate the ability for self-care and ambulatio treat the urinary tract infection have her evaluated by physical therapy to determine if the patient can safely be released back home without having rehabilitation of some type. 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 Patient has on her right lower extremity swelling/cellulitis blistering to base of the right fourth and fifth toes. Foot and lower leg is warm to touch, patient denies feeling any pain related to underlying condition of neuropathy. Patient is unsure of how long she has had the ulceration to the right foot. Hospital Course Hospital Course Hospital Course: Patient originally was admitted due to falling frequently at home.. She was felt unsafe to ambulate and for self-care at home. She was treated for UTI. She then was found to have a wound in the right foot with cellulitis and osteomyelitis. She was felt to have venous insufficiency. Podiatry was consulted and on 05/15/2024 she had a surgical procedure with a right foot incision and drainage, wide excision and debridement of nonviable soft tissue and bone, and partial 4 to fifth toe amputation.. She was started on IV vancomycin and Zosyn. Postop she was very lethargic. She was followed podiatry throughout her visit with daily dressing changes. She had a wound VAC placed as well. Care management worked on disposition. She gradually became more alert. On 05 20 2024 she had a PICC line placed in the a.m. Wound VAC was removed temporarily for transfer to [place]. Bed was obtained and she was felt stable to be discharged. She was to continue with IV Invanz and vancomycin as per microbiology reports. Exam Data for Last 24 hours Vital signs and Labs for Last 24 Hours: Temp Pulse Resp BP Pulse Ox O2 Del Method O2 Flow Rate 98.7 F 86 18 161/72 H 96 Room Air 2 05/20/24 08:00 05/20/24 08:00 05/20/24 08:00 05/20/24 08:00 05/20/24 08:00 05/20/24 08:00 05/15/24 23:55 Laboratory Results - last 24 hr 05/19/24 09:48: POC Glucose 211 H 05/19/24 11:21: POC Glucose 173 H 05/19/24 16:58: POC Glucose 129 H 05/19/24 20:38: POC Glucose 133 H 05/20/24 05:26: POC Glucose 144 H 05/20/24 05:52: WBC 11.6 H, RBC 4.55, Hgb 13.2, Hct 39.8, MCV 87.6, MCH 29.1, MCHC 33.2, RDW 14.0, Plt Count 344 D, MPV 9.0, Neut % (Auto) 75.9, Lymph % (Auto) 13.5, [place] % (Auto) 6.1, Eos % (Auto) 3.6, Baso % (Auto) 0.8, Neut # (Auto) 8.8 H, Lymph # (Auto) 1.6, [place] # (Auto) 0.7, Eos # (Auto) 0.4, Baso # (Auto) 0.1, ESR 61 H, Sodium 145, Potassium 3.4 L, Chloride 108 H, Carbon Dioxide 26, Anion Gap 14.4, BUN 22 H D, Creatinine 0.80 D, Estimated Creat Clear 98, Estimated GFR 72, Est GFR ( Amer) 87 D, Glucose 156 H, Calcium 9.4, Total Bilirubin 0.6, AST 42 H, ALT 9 L, Alkaline Phosphatase 65, C-Reactive Protein 36.3 H, Total Protein 7.3, Albumin 3.7, Globulin 3.6 H, Albumin/Globulin Ratio 1.0 L I & O for Last 24 hours: Intake & Output 05/17/24 05/18/24 05/19/24 05/20/24 11:59 11:59 11:59 11:59 Intake Total 922 / 922 1230 / 1230 1100 / 1100 1270 / 1270 Output Total 350 / 350 0 / 0 0 / 0 0 / 0 Balance 572 / 572 1230 / 1230 1100 / 1100 1270 / 1270 Weight 252 lb 6.868 oz 250 lb 3.2 oz 240 lb 1.6 oz 244 lb 3.2 oz Microbiology Reports for the Last 24 Hours: Microbiology 05/15/24 17:00 Foot,Right - Right Gram Stain - Final 05/15/24 17:00 Foot,Right - Right Surgical Biopsy Culture - Preliminary 05/15/24 17:00 Foot,Right - Right Fourth Bone Culture - Preliminary 05/16/24 13:21 Urine,Clean Catch Urine Culture - Final No growth. 05/13/24 00:05 Urine,Clean Catch Urine Culture - Final Klebsiella pneumoniae 05/15/24 11:57 Toe,Right Fifth Gram Stain - Final 05/15/24 11:57 Toe,Right Fifth Wound Culture - Final Citrobacter koseri Staphylococcus capitis Enterococcus faecalis Narrative: Microbiology 05/15/24 17:00 Foot,Right - Right Gram Stain - Final 05/15/24 17:00 Foot,Right - Right Surgical Biopsy Culture - Preliminary 05/15/24 17:00 Foot,Right - Right Fourth Bone Culture - Preliminary 05/16/24 13:21 Urine,Clean Catch Urine Culture - Final No growth. 05/13/24 00:05 Urine,Clean Catch Urine Culture - Final Klebsiella pneumoniae 05/15/24 11:57 Toe,Right Fifth Gram Stain - Final 05/15/24 11:57 Toe,Right Fifth Wound Culture - Final Citrobacter koseri Staphylococcus capitis Enterococcus faecalis Constitutional: Present no acute distress Comment:: Speech is much more clear and precise this a.m. Respiratory: Present CTA bilaterally (Anteriorly and posteriorly. Patient assist with exam.) Cardiac: Present Reg Rate and Rhythm GI: Present soft, hyperactive bowel sounds and other (Obese); Absent distention, tenderness or guarding (female): Present other (Pure wick in place) Extremities: Absent edema Comment:: Dressing on right foot is clean and dry. It is just been changed. Wound VAC was left off. There is no erythema above the dressing. There is no edema of either leg. Toenails have also been clipped this a.m. Neuro: Present oriented x 3 Comment:: Mentation is much better this a.m. Results Data Completed and Pending Labs on day of discharge: Labs from last 24 hours 05/20/24 05/20/24 05/19/24 05:52 05:26 20:38 WBC 11.6 H RBC 4.55 Hgb 13.2 Hct 39.8 MCV 87.6 MCH 29.1 MCHC 33.2 RDW 14.0 Plt Count 344 D MPV 9.0 Neut % (Auto) 75.9 Lymph % (Auto) 13.5 [place] % (Auto) 6.1 Eos % (Auto) 3.6 Baso % (Auto) 0.8 Neut # (Auto) 8.8 H Lymph # (Auto) 1.6 [place] # (Auto) 0.7 Eos # (Auto) 0.4 Baso # (Auto) 0.1 ESR 61 H Sodium 145 Potassium 3.4 L Chloride 108 H Carbon Dioxide 26 Anion Gap 14.4 BUN 22 H D Creatinine 0.80 D Estimated Creat Clear 98 Estimated GFR 72 Est GFR ( Amer) 87 D Glucose 156 H POC Glucose 144 H 133 H Calcium 9.4 Total Bilirubin 0.6 AST 42 H ALT 9 L Alkaline Phosphatase 65 C-Reactive Protein 36.3 H Total Protein 7.3 Albumin 3.7 Globulin 3.6 H Albumin/Globulin Ratio 1.0 L 05/19/24 05/19/24 05/19/24 16:58 11:21 09:48 WBC RBC Hgb Hct MCV MCH MCHC RDW Plt Count MPV Neut % (Auto) Lymph % (Auto) [place] % (Auto) Eos % (Auto) Baso % (Auto) Neut # (Auto) Lymph # (Auto) [place] # (Auto) Eos # (Auto) Baso # (Auto) ESR Sodium Potassium Chloride Carbon Dioxide Anion Gap BUN Creatinine Estimated Creat Clear Estimated GFR Est GFR ( Amer) Glucose POC Glucose 129 H 173 H 211 H Calcium Total Bilirubin AST ALT Alkaline Phosphatase C-Reactive Protein Total Protein Albumin Globulin Albumin/Globulin Ratio Preliminary micro results at discharge 05/15/24 17:00 Surgical Biopsy Culture - Preliminary Foot,Right - Right 05/15/24 17:00 Bone Culture - Preliminary Foot,Right - Right Fourth 05/15/24 17:00 Bone Culture - Preliminary Foot,Right DS: Diagnosis Discharge Diagnosis (1) Cellulitis of right leg: Status: Acute Code(s): L03.115 - Cellulitis of right lower limb (2) Diabetic foot ulcer: Status: Acute Code(s): E11.621 - Type 2 diabetes mellitus with foot ulcer; L97.509 - Non-pressure chronic ulcer of other part of unspecified foot with unspecified severity Qualifiers: Diabetes mellitus type: type 2 Diabetic foot ulcer location: other Laterality: right Non-pressure ulcer stage: with necrosis of bone Qualified Code(s): E11.621 - Type 2 diabetes mellitus with foot ulcer; L97.514 - Non-pressure chronic ulcer of other part of right foot with necrosis of bone (3) Gas gangrene: Status: Acute Code(s): A48.0 - Gas gangrene (4) Parkinsonian syndrome: Status: Suspected Code(s): G20 - Parkinson's disease Qualifiers: 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 Qualified Code(s): 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 Problem details: Parkinsonian syndrome (5) Diabetes type 2, uncontrolled: Status: Chronic Code(s): E11.65 - Type 2 diabetes mellitus with hyperglycemia Qualifiers: Glycemic state: with hyperglycemia Qualified Code(s): E11.65 - Type 2 diabetes mellitus with hyperglycemia (6) Long-term insulin use: Status: Acute Code(s): Z79.4 - superintendent terminal (current) use of insulin (7) Morbid obesity with body mass index (BMI) of 40.0 to 44.9 in adult: Status: Acute Code(s): E66.01 - Morbid (severe) obesity due to excess calories; Z68.41 - Body mass index [BMI] 40.0-44.9, adult (8) Edema of right lower leg due to peripheral venous insufficiency: Status: Acute Code(s): I87.2 - Venous insufficiency (chronic) (peripheral); R60.0 - Localized edema (9) Osteomyelitis of right foot: Status: Acute Code(s): M86.9 - Osteomyelitis, unspecified Qualifiers: Osteomyelitis type: chronic, with draining sinus Qualified Code(s): M86.471 - Chronic osteomyelitis with draining sinus, right ankle and foot (10) Onychodystrophy: Status: Chronic Code(s): L60.3 - Nail dystrophy (11) Hypokalemia: Status: Acute Code(s): E87.6 - Hypokalemia Meds Home Medications and Allergies Home Medications ?Medication ?Instructions ?Recorded ?Confirmed ?Type atorvastatin 20 mg tablet 20 mg PO HS High cholesterol 07/05/17 05/19/24 History gabapentin 300 mg capsule 300 mg PO TIDP PRN neuropathic pain 07/05/17 05/19/24 History meloxicam 7.5 mg tablet 7.5 mg PO DAILY 07/05/17 05/19/24 History metformin 500 mg tablet 1,000 mg PO BID Diabetes 07/05/17 05/19/24 History multivitamin 1 each PO DAILY Supplement 07/05/17 05/19/24 History L.acidoph, paracasei,B. lactis 10 1 each PO DAILY Supplement 10/09/18 05/19/24 History billion cell capsule biotin 5 mg capsule 5 mg PO BID 10/09/18 05/19/24 History calcium 600 mg (as 1 each PO BID Supplement 10/09/18 05/19/24 History carbonate)-vitamin D3 20 mcg (800 unit) tablet cinnamon bark-chromium picolinate 2 cap PO BID Supplement 10/09/18 05/19/24 History 500 mg-100 mcg capsule coenzyme Q10 100 mg capsule 100 mg PO DAILY Supplement 10/09/18 05/19/24 History krill hfu-okhgn-3-dha-epa 300 1 each PO DAILY Supplement 10/09/18 05/19/24 History mg-90 mg (27 mg-45 mg) capsule aspirin 81 mg tablet,delayed 81 mg PO DAILY 05/09/19 05/19/24 History release (Jacki Low Dose Aspirin) fenofibrate nanocrystallized 145 145 mg PO DAILY 10/30/19 05/19/24 History mg tablet lisinopril 20 mg tablet 20 mg PO DAILY Hypertension 10/30/19 05/19/24 History metoprolol succinate 50 mg 50 mg PO DAILY 07/05/22 05/19/24 History tablet,extended release 24 hr pen needle, diabetic 31 gauge x #1,200 ea 05/24/23 05/19/24 History 3/16 (BD Ultra-Fine Mini Pen Needle) duloxetine 60 mg capsule,delayed 60 mg PO DAILY #90 caps 10/09/23 05/19/24 Rx release semaglutide 7 mg tablet (Rybelsus) 7 mg PO DAILY 11/07/23 05/19/24 History duloxetine 30 mg capsule,delayed 30 mg PO DAILY 11/08/23 05/19/24 History release fluoxetine 40 mg capsule 40 mg PO DAILY 11/08/23 05/19/24 History insulin glargine 100 unit/mL 50 unit (0.5 mL) SQ BID Diabetes 11/08/23 05/19/24 Rx subcutaneous solution #1 mL insulin aspart U-100 100 unit/mL 0 unit SQ DIRECTED Diabetes 02/22/24 05/19/24 History (3 mL) subcutaneous pen ascorbic acid (vitamin C) 1,000 mg 500 mg PO DAILY 03/06/24 05/19/24 History chewable tablet carbidopa ER 50 mg-levodopa 200 mg 1 tab PO QID Parkinsonian syndrome 03/06/24 05/19/24 Rx tablet,extended release #120 tabs lumateperone 42 mg capsule 42 mg PO DAILY 05/13/24 05/19/24 History (Caplyta) Vancomycin HCl [Vancomycin 1000mg 125 mls/hr IV Q12H 05/20/24 Rx vial] 2,000 mg ertapenem 1 gram solution for 1 g IV Q24H #1 ea 05/20/24 Rx injection New Prescriptions to Start Prescriptions: ertapeRicky Dela Cruz Vancomycin HCl [Vancomycin 1000mg vial] 2,000 mg 0.9 % Sodium Chloride [Sod Chlor 0.9% 250mL Bag] 250 ml 125 mls/hr IV Q12H Allergies Allergy/AdvReac Type Severity Reaction Status Date / Time No Known Allergies Allergy Verified 04/15/24 11:23 Discharge Plan Disposition Patient Disposition: Xfer SNF Condition: Fair Discharge Order Discharge Orders: Discharge Order (Routine); Ordered 05/20/24 Ordered By: Ricky Jones Follow up Plan Follow up with: Ricky Jones MD [Primary Care Provider] - Enter time for follow up (At [facility]) Jen Smith DPM [Staff Physician] - 1 week Prescriptions/Medication Reconciliation: New ertapenem 1 gram Recon Soln 1 g IV Q24H Qty: 1 0RF Vancomycin HCl [Vancomycin 1000mg vial] 2000 MG 0.9 % Sodium Chloride [Sod Chlor 0.9% 250mL Bag] 250 ML 125 mls/hr IV Q12H Ordered By: Ricky Jones MD Last Taken: 05/19/24 21:07 125 mls/hr Continued aspirin [Jacki Low Dose Aspirin] 81 mg tablet,delayed release (DR/EC) 81 mg PO DAILY (DME) pen needle, diabetic [BD Ultra-Fine Mini Pen Needle] 31 gauge x 3/16 needle See Rx Instructions .ROUTE .MEDSUPPLY Qty: 1200 Rx Instructions: As directed carbidopa-levodopa 50-200 mg tablet extended release 1 tab PO QID Qty: 120 6RF Rx Instructions: divide evenly over waking hours fenofibrate nanocrystallized 145 mg tablet 145 mg PO DAILY duloxetine 60 mg capsule,delayed release(DR/EC) 60 mg PO DAILY Qty: 90 1RF Rx Instructions: TAKE 1 CAPSULE DAILY WITH 30 MG CAPSULE FOR DEPRESSION. DOSAGE IS 90 MG TOTAL DAILY. VERIFIED WITH PHYSICIAN OFFICE, FLUOXETINE AND DULOXETINE ARE BOTH PRESCRIBED biotin 5 MG capsule 5 mg PO BID coenzyme Q10 100 MG capsule 100 mg PO DAILY krill qpw-jprmc-1-dha-epa 1 EACH capsule 1 each PO DAILY cinnamon bark-chromium picolin 1 EACH capsule 2 cap PO BID calcium carbonate-vitamin D3 1 EACH tablet 1 each PO BID L.acidoph, paracasei,B. lactis 1 EACH capsule 1 each PO DAILY gabapentin 300 MG capsule 300 mg PO TIDP PRN (Reason: neuropathic pain) metformin 500 MG tablet 1,000 mg PO BID atorvastatin 20 MG tablet 20 mg PO HS meloxicam 7.5 MG tablet 7.5 mg PO DAILY multivitamin 1 EACH capsule 1 each PO DAILY lisinopril 20 mg tablet 20 mg PO DAILY metoprolol succinate 50 mg tablet extended release 24 hr 50 mg PO DAILY insulin aspart U-100 100 unit/mL (3 mL) insulin pen 0 unit SQ DIRECTED Rx Instructions: 32 UNITS BREAKFAST/20 UNITS LUNCH/32 UNITS DINNER SQ as directed; ascorbic acid (vitamin C) 1,000 mg tablet,chewable 500 mg PO DAILY Rybelsus 7 mg tablet 7 mg PO DAILY fluoxetine 40 mg capsule 40 mg PO DAILY duloxetine 30 mg capsule,delayed release(DR/EC) 30 mg PO DAILY Rx Instructions: TAKE 1 CAPSULE DAILY WITH 60 MG CAPSULE FOR DEPRESSION. DOSAGE IS 90 MG TOTAL DAILY. VERIFIED WITH PHYSICIAN OFFICE, FLUOXETINE AND DULOXETINE ARE BOTH PRESCRIBED insulin glargine 100 unit/mL solution 50 unit SQ BID Qty: 1 0RF Caplyta 42 mg Capsule 42 mg PO DAILY Problem Reconciliation Problems Reviewed?: Yes Patient Discharge Instructions ACTIVITY: Limited activity DIET: continue same diet Additional Instructions: Per Podiatry: SNF orders: -NWB to RLE in post op shoe/short fx boot -Plan for right foot wound vac @125mmHg med continuous twice weekly changes (Mon/Thurs or /Fri) -PICC, IV abx per PCP recs -Weekly labs (cbc, cmp, esr, crp) fax to Podiatry ([phone]) -F/u with Podiatry weekly Patient Instructions: DI for Cellulitis -- Adult, DI for Urinary Tract Infection (UTI), How to Prevent Falls, DI for Surgical Site Infection, DI for Incision and Drainage Print Language: Spanish Providers Primary Care Provider: Ricky Jones Admit Provider: Ricky Jones Attending Provider: Ricky Jones
[2024-05-20] MEDS: FENOFIBRATE 134MG CAPSULE 134 MG PO (08:46)
[2024-05-20] MEDS: METFORMIN 500MG TABLET 1000 MG PO (08:46)
[2024-05-20] MEDS: FLUOXETINE 20MG CAPSULE 40 MG PO (08:46)
[2024-05-20] MEDS: CARBIDOPA/LEVODOPA CR 50/200MG TABLET 1 EACH PO (08:46)
[2024-05-20] MEDS: DULOXETINE 30MG CAPSULE.DR 90 MG PO (08:46)
[2024-05-20] MEDS: FUROSEMIDE 20MG TABLET 20 MG PO (08:46)
[2024-05-20] MEDS: ASPIRIN EC 81MG TABLET 81 MG PO (08:46)
[2024-05-20] MEDS: AMLODIPINE 5MG TABLET 5 MG PO (08:46)
[2024-05-20] MEDS: METOPROLOL SUCCINATE XL 50MG TABLET 50 MG PO (08:47)
[2024-05-20] MEDS: LISINOPRIL 20MG TABLET 20 MG PO (08:47)
[2024-05-20] MEDS: POTASSIUM CHLORIDE 20MEQ TAB 40 MEQ PO (08:52)
[2024-05-20] MEDS: PRO-STAT AWC 30ML LIQUID PACKET 30 ML PO (08:52)
--- NOTE | 2024-05-20 08:53 | XR_ITS ---
PROCEDURE INFORMATION: Exam: XR Chest Exam date and time: 05/20/2024 7:49 AM Age: 64 years old Clinical indication: Device placement; Picc; Additional info: Confirm picc line placement TECHNIQUE: Imaging protocol: Radiologic exam of the chest. Views: 1 view. COMPARISON: CR XR CHEST PORTABLE 05/13/2024 12:30 AM FINDINGS: Tubes, catheters and devices: Peripherally inserted right central venous catheter with tip at the distal superior vena cava. Lungs: No significant lung changes. Pleural spaces: Unremarkable. No pleural effusion. No pneumothorax. Heart/Mediastinum: No significant mediastinal change. Bones/joints: Diffuse degenerative change of the visualized osseous structures. No acute osseous abnormality. IMPRESSION: Right-sided peripherally inserted central venous catheter without acute finding.
[2024-05-20] MEDS: ERTAPENEM SODIUM 1 GM in 0.9 % SODIUM CHLORIDE 50 ML IV (08:56)
[2024-05-20] MEDS: POTASSIUM CHLORIDE 20MEQ TAB 20 MEQ PO (08:58)
[2024-05-20 10:10] LABS: Vancomycin,Trough 16.6 ug/mL (5.0-10.0)
--- NOTE | 2024-05-20 10:12 | PC.NURSE ---
attempted to call report to [facility] multiple times, unable to get ahold of anyone at this time. will try again
--- NOTE | 2024-05-20 10:38 | PC.NURSE ---
called report to gisela at [facility]
== END 2024-05-20 11:29 | DRG 616 ==
LOC: ER 22:24 → 2ND 05-13 02:33
PROVIDERS: Internal Medicine Adolescent Medicine; Nurse Practitioner Family; Podiatrist; Admitting Provider Family Medicine; Emergency Provider Emergency Medicine; PCP Family Medicine; Visit Provider Family Medicine
PROC: 0Y6M0ZD Detachment at Right Foot, Partial 4th Ray, Open Approach (ICD-10-PCS; principal; 2024-05-15 14:35)
DX: E11.621 Type 2 diabetes mellitus with foot ulcer (principal); A48.0 Gas gangrene; N30.00 Acute cystitis without hematuria; E11.52 Type 2 diabetes mellitus with diabetic peripheral angiopathy with gangrene; F33.9 Major depressive disorder, recurrent, unspecified; G21.19 Other drug induced secondary parkinsonism; Z68.41 Body mass index [BMI] 40.0-44.9, adult; M86.671 Other chronic osteomyelitis, right ankle and foot; L03.115 Cellulitis of right lower limb; N17.9 Acute kidney failure, unspecified; R42 Dizziness and giddiness; E11.65 Type 2 diabetes mellitus with hyperglycemia; Z79.4 Long term (current) use of insulin; E66.01 Morbid (severe) obesity due to excess calories; I87.2 Venous insufficiency (chronic) (peripheral); R60.0 Localized edema; G20.A1 Parkinson's disease without dyskinesia, without mention of fluctuations; E78.5 Hyperlipidemia, unspecified; I10 Essential (primary) hypertension; Z79.84 Long term (current) use of oral hypoglycemic drugs; Z79.82 Long term (current) use of aspirin; E11.69 Type 2 diabetes mellitus with other specified complication; L97.519 Non-pressure chronic ulcer of other part of right foot with unspecified severity; E87.6 Hypokalemia; W19.XXXA Unspecified fall, initial encounter
CPT/HCPCS: 36415; 36569; 70450; 71045; 72125; 72170; 73030; 73060; 73080; 73610; 73630; 73700; 80048; 80053; 80202; 81001; 82550; 82962; 83036; 83605; 83735; 84100; 84145; 84436; 84443; 85007; 85014; 85018; 85025; 85048; 85049; 85610; 85651; 85730; 86140; 86803; 87070; 87075; 87077; 87086; 87088; 87186; 87205; 87389; 88304; 88305; 88311; 93005; 97110; 97162; 97164; 97165; 97530; 97535; 99285; C1751; J0696; J0736; J1335; J1650; J2060; J2250; J2405; J2543; J3010; J3370; J3475; J7030; J7120

== ENCOUNTER 2024-05-21 13:47 | Outpatient (CLI) | payer MEDICARE, OTHER, SELFPAY ==
[2024-05-21 14:32] LABS: Anion Gap 17.1 mEq/L (5-15); Blood Urea Nitrogen 24 mg/dl (7-17); Calcium 9.6 mg/dl (8.4-10.2); Carbon Dioxide 26 mmol/L (22.0-30.0); Chloride 104 mmol/L (98-107); Estimated Glomerular Filt Rate 72 ml/min (>60); GFR (African American) 87 ML/MIN (>60); Glucose 87 mg/dl (74-100); Potassium 4.1 mmoL/L (3.5-5.1); Sodium 143 mmol/L (136-145)
[2024-05-21 14:52] LABS: Vancomycin,Trough 16.2 ug/mL (5.0-10.0)
== END 2024-05-21 23:59 | disposition home or self-care (01) ==
LOC: LAB.DROPOF 13:49
PROVIDERS: PCP Family Medicine; Visit Provider Family Medicine
DX: M86.9 Osteomyelitis, unspecified (principal); A48.0 Gas gangrene; E11.65 Type 2 diabetes mellitus with hyperglycemia; E66.01 Morbid (severe) obesity due to excess calories; Z68.41 Body mass index [BMI] 40.0-44.9, adult; E78.5 Hyperlipidemia, unspecified; G20.C Parkinsonism, unspecified; G60.9 Hereditary and idiopathic neuropathy, unspecified; I15.2 Hypertension secondary to endocrine disorders; I87.2 Venous insufficiency (chronic) (peripheral); L03.115 Cellulitis of right lower limb; L97.509 Non-pressure chronic ulcer of other part of unspecified foot with unspecified severity; L97.514 Non-pressure chronic ulcer of other part of right foot with necrosis of bone; M15.0 Primary generalized (osteo)arthritis; N17.9 Acute kidney failure, unspecified; S91.301D Unspecified open wound, right foot, subsequent encounter; Z79.4 Long term (current) use of insulin
CPT/HCPCS: 80048; 80202

== ENCOUNTER 2024-06-03 12:48 | Outpatient (CLI) | payer MEDICARE, OTHER, SELFPAY ==
--- NOTE | 2024-06-03 12:52 | US_ITS ---
FINAL REPORT CLINICAL HISTORY: HTN, HLD, DM, obesity, ulcer right toe, currently bandaged post debridement today. COMPARISON: None FINDINGS: ANKLE-BRACHIAL PRESSURE INDICES Pressure indices are as follows: RIGHT LOWER EXTREMITY: Ankle-brachial pressure index: 1.4 Comments: Noncompressible LEFT LOWER EXTREMITY: Ankle-brachial pressure index: 1.4 Comments: Noncompressible CONCLUSION: Elevated ankle-brachial indices in the bilateral lower extremities, resulting in noncompressible vessels. Reviewed, Interpreted and Dictated by Sherwin Winston III, MD Transcribed by Marva Gregory Authenticated and [facility]
== END 2024-06-03 23:59 | disposition home or self-care (01) ==
LOC: RT 12:49
PROVIDERS: PCP Family Medicine; Visit Provider Podiatrist
DX: R09.89 Other specified symptoms and signs involving the circulatory and respiratory systems (principal); E11.621 Type 2 diabetes mellitus with foot ulcer; L97.514 Non-pressure chronic ulcer of other part of right foot with necrosis of bone; S90.821A Blister (nonthermal), right foot, initial encounter
CPT/HCPCS: 87070; 87106; 87205; 93923

== ENCOUNTER 2024-07-02 09:17 | Outpatient (CLI) | payer MEDICARE, OTHER, SELFPAY ==
--- NOTE | 2024-07-02 09:24 | CA_ITS ---
APPROVED REPORT EXAM: Comprehensive 2D, Doppler, and color-flow Echocardiogram Physical Scientist: Padmini Nogueira CRT Ht: 5 ft 6 in Wt: 244lbs BSA: 2.18 BP: 149/73 mmHg Indications: Diabetes, Hyperlipidemia, Hypertension/HDD, Pre-Op 2D Dimensions LA Volume 80.90 mL LA Volume Index 36.30 mL/m2 (M/F) 16-34 M-Mode Dimensions RVDd 2.50 cm (0.9-2.6) LA Diam 2.96 cm (1.9-4.0) LVDd 5.32 cm (3.5-5.7) LVDs 3.25 cm (3.5-5.7) IVSd 1.32 cm (0.6-1.1) PWd 0.75 cm (0.6-1.1) EF (Teich) 68.90% FS 38.90% EDV (Teich) 136.50 mL TAPSE 1.96 (<1.7) ESV (Teich) 42.50 mL LV Diastology E Decel Time 140 (160-240 msec) E/A Ratio 0.79 MED A' 11.60 cm/s LAT A' 11.00 cm/s Aortic Valve AO Peak GR. 8.30 mmHg Mitral Valve MV A Velocity 89.0 (40-130 cm/s) E/A Ratio 0.79 Pulmonary Valve PV Peak Velocity 144.0 (50-150 cm/s) Tricuspid Valve TR P. Velocity 156.00 cm/s RAP Estimate 10.00 mmHg RVSP 19.70 mmHg Left Ventricle The left ventricle is normal size. The left ventricular systolic function is normal. The left ventricular ejection fraction is within the normal range. There is increased LV wall thickness. There is normal LV segmental wall motion. The left ventricular diastolic function is normal. LVEF is 55%. Right Ventricle The right ventricle is not very well visualized, but grossly appears normal in size and function. Atria The left atrium size is normal. The right atrium size is normal. There is no Doppler evidence of interatrial shunt. Aortic Valve The aortic valve is mildly thickened. There is no aortic valvular stenosis. Trace aortic regurgitation. Mitral Valve The mitral valve is normal in structure. No evidence of mitral valve stenosis. Trace mitral regurgitation. Tricuspid Valve Tricuspid valve is grossly normal in structure and function. Trace tricuspid regurgitation. There is insufficient TR jet to estimate RVSP. Pulmonic Valve The pulmonary valve is normal in structure. Trace pulmonic regurgitation. Great Vessels The aortic root is normal in size. The ascending aorta is not well visualized. IVC is normal in size and collapses >50% with inspiration. Pericardium There is no pericardial effusion. Other Information Study Quality: Fair Conclusion Normal biventricular systolic function. No significant valvular stenosis or regurgitation. Electronically signed by : Jannette Torres MD 07/03/2024 19:23:29
== END 2024-07-02 23:59 | disposition home or self-care (01) ==
LOC: RT 09:22
PROVIDERS: PCP Family Medicine; Visit Provider Nurse Practitioner
DX: Z01.818 Encounter for other preprocedural examination (principal); I10 Essential (primary) hypertension; R42 Dizziness and giddiness; I73.9 Peripheral vascular disease, unspecified; E78.49 Other hyperlipidemia; R68.89 Other general symptoms and signs
CPT/HCPCS: 93306

== ENCOUNTER 2024-07-04 07:00 | Day surgery (SDC) | payer MEDICARE, OTHER, SELFPAY ==
[2024-07-04] VITALS (12 sets, daily range): BP systolic 113–175; BP diastolic 64–82; PULSE 68–80; RESP 16–18; TEMP 36.9; O2SAT 90–97; BMI 39.4
--- NOTE | 2024-07-04 07:16 | IR_ITS ---
APPROVED REPORT Patient Location: Outpatient PROCEDURES Catheter placed in the distal abdominal aorta Distal abdominal aortogram Catheter placement in the left external iliac artery Left external iliac artery antegrade angiogram with unilateral runoff to the left foot Catheter placement in the right superficial femoral artery Right superficial femoral artery selective angiogram with unilateral runoff to the right foot INDICATION [place] claudication class , Peripheral artery disease, Abnormal NADIA Informed consent was obtained prior to the procedure. COMPLICATIONS None Estimated Blood Loss: Less than 10 mls TECHNIQUE 1% lidocaine used to anesthetize the right anterior aspect of the right wrist. The right radial artery was accessed via the central technique and an arterial cocktail using 5000U heparin, 2.5 mg verapamil, 1mg lidocaine and 800mcg nitroglycerin into the right radial sheath intra-arterially. A PV multi curve catheter was placed in the left external iliac artery and left external iliac artery antegrade angiogram with unilateral runoff to the left foot was performed. The catheter was then pulled back and under fluoroscopic guidance placed into the right superficial femoral artery. Right superficial femoral artery antegrade angiography with unilateral runoff to the right foot was performed. The catheter was placed back to the distal abdominal aorta where distal abdominal aortography and iliofemoral angiography was performed. At the end the procedure the apparatus was removed the sheath was removed and hemostasis was achieved using TR banding patient was transferred to the postop putting in stable condition ANGIOGRAPHIC RESULTS Distal abdominal aorta is patent Bilateral common internal and external iliac arteries are widely patent Bilateral common femoral arteries patent Bilateral SFA and profunda femoris arteries patent Bilateral popliteal arteries patent The 3 infrageniculate vessels are proximally patent and then slowly lose contrast opacification distally suggesting microvascular disease. 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 Medical management 2. Supportive care 3. Xarelto 2.5 twice daily plus aspirin 81 mg daily Electronically signed by : Kadeem De La Rosa MD 07/04/2024 12:02:59
[2024-07-04 08:25] LABS: Basophils # 0.1 K/mm3 (0-0.2); Eosinophils # 0.8 K/mm3 (0.0-0.4); Eosinophils % 10.9 % (0.1-12.0); Hemoglobin 10.7 g/dL (12.2-16.2); Lymphocytes # 1.7 K/mm3 (0.7-4.5); Mean Corpuscular HGB Conc 32.4 g/dL (31.8-35.4); Mean Corpuscular Hemoglobin 28.6 pg (27.0-31.2); Mean Corpuscular Volume 88.2 fl (81-99); Mean Platelet Volume 11.4 fl (7.4-10.4); Monocytes # 0.4 K/mm3 (0.1-1.0); Monocytes % 5.8 % (1.7-9.3); Neutrophils # 4.6 K/mm3 (1.8-7.8); Neutrophils % 59.9 % (37.0-80.0); Platelet Count 217 K/mm3 (142-424); Red Blood Count 3.74 M/mm3 (4.20-5.40); White Blood Count 7.6 K/mm3 (4.8-10.8)
[2024-07-04 08:38] LABS: Anion Gap 7.1 mEq/L (5-15); Blood Urea Nitrogen 21 mg/dl (7-17); Carbon Dioxide 31 mmol/L (22.0-30.0); Chloride 106 mmol/L (98-107); Creatinine Clearance Estimated 98 mL/min (50-200); Estimated Glomerular Filt Rate 72 ml/min (>60); GFR (African American) 87 ML/MIN (>60); Glucose 92 mg/dl (74-100); Potassium 4.1 mmoL/L (3.5-5.1); Sodium 140 mmol/L (136-145)
[2024-07-04] MEDS: HEPARIN 1,000 UNITS/ML 10ML VIAL (CATH LAB) 10000 UNIT IV (09:56)
[2024-07-04] MEDS: LIDOCAINE 1% 10ML MDV 20 ML IJ (09:56)
[2024-07-04] MEDS: VERAPAMIL 2.5MG/ML 2ML VIAL 2.5 MG IV (09:56)
[2024-07-04] MEDS: HEPARIN 1,000 UNITS/500ML NS (CATH LAB) 3000 UNIT IV (09:57)
[2024-07-04] MEDS: diphenhydrAMINE 50MG/ML VIAL 50 MG IV (09:57)
[2024-07-04] MEDS: 0.9 % SODIUM CHLORIDE 500 ML 25 ML IV (09:57)
[2024-07-04] MEDS: NITROGLYCERIN 800MCG/8ML SYR (CATH LAB) 800 MCG IA (09:58)
[2024-07-04] MEDS: MIDAZOLAM HCL 1MG/ML 5ML VIAL 1 MG IV (10:37)
[2024-07-04] MEDS: FENTANYL 100MCG/2ML VIAL 50 MCG IV (10:37)
--- NOTE | 2024-07-04 12:01 | SUR.PHASEII ---
report called to ANTHONY Cervantes at [facility]. Instructed pt would be ready for d/c at 1330 and went over all d/c instructions to care for pt's right wrist. Informed they would arrange for bus transport.
[2024-07-04] MEDS: IOHEXOL-240 100ML BOTTLE 108 ML IV (12:28)
== END 2024-07-04 14:08 | disposition home or self-care (01) ==
PROVIDERS: PCP Family Medicine; Visit Provider Internal Medicine
DX: Z01.810 Encounter for preprocedural cardiovascular examination (principal); E11.52 Type 2 diabetes mellitus with diabetic peripheral angiopathy with gangrene; E11.621 Type 2 diabetes mellitus with foot ulcer; L97.514 Non-pressure chronic ulcer of other part of right foot with necrosis of bone; A48.0 Gas gangrene; I73.9 Peripheral vascular disease, unspecified; R42 Dizziness and giddiness; I10 Essential (primary) hypertension; E78.49 Other hyperlipidemia; Z79.899 Other long term (current) drug therapy; E11.65 Type 2 diabetes mellitus with hyperglycemia; Z79.4 Long term (current) use of insulin; Z79.85 Long-term (current) use of injectable non-insulin antidiabetic drugs; I70.213 Atherosclerosis of native arteries of extremities with intermittent claudication, bilateral legs
CPT/HCPCS: 36200; 75625; 75716; 80048; 85025; 99152; 99153; C1725; C1769; J1200; J1644; J2250; J3010; Q9966

== ENCOUNTER 2024-07-25 12:35 | Outpatient (CLI) | payer MEDICARE, OTHER, SELFPAY ==
[2024-07-25 12:52] LABS: Basophils % 0.5 % (0.1-2.0); Eosinophils # 0.3 K/mm3 (0.0-0.4); Eosinophils % 3.8 % (0.1-12.0); Hematocrit 33.8 % (37.0-47.0); Hemoglobin 10.9 g/dL (12.2-16.2); Lymphocytes # 1.7 K/mm3 (0.7-4.5); Lymphocytes % 22.5 % (10-50); Mean Corpuscular HGB Conc 32.2 g/dL (31.8-35.4); Mean Corpuscular Hemoglobin 28.7 pg (27.0-31.2); Mean Corpuscular Volume 88.9 fl (81-99); Mean Platelet Volume 11.5 fl (7.4-10.4); Monocytes # 0.5 K/mm3 (0.1-1.0); Monocytes % 6.8 % (1.7-9.3); Neutrophils % 66.1 % (37.0-80.0); Platelet Count 209 K/mm3 (142-424); Red Cell Distribution Width 14.8 % (11.5-17.5); White Blood Count 7.6 K/mm3 (4.8-10.8)
[2024-07-25 13:21] LABS: Erythrocyte Sedimentation Rate 70 mm/hr (0-30)
[2024-07-25 14:06] LABS: Chloride 105 mmol/L (98-107); Sodium 141 mmol/L (136-145)
[2024-07-25 14:07] LABS: Potassium 4.4 mmoL/L (3.5-5.1)
[2024-07-25 14:09] LABS: Alanine Aminotransferase 13 U/L (12-78); Albumin/Globulin Ratio 1.4 (1.1-1.8); Alkaline Phosphatase 62 U/L (38-126); Anion Gap 12.4 mEq/L (5-15); Aspartate Amino Transferase 29 U/L (14-36); Bilirubin,Total 0.3 mg/dl (0.2-1.3); Blood Urea Nitrogen 29 mg/dl (7-17); Calcium 10.1 mg/dl (8.4-10.2); Carbon Dioxide 28 mmol/L (22.0-30.0); Estimated Glomerular Filt Rate 124 ml/min (>60); GFR (African American) 150 ML/MIN (>60); Globulin 2.9 g/dL (1.3-3.2); Glucose 124 mg/dl (74-100); Total Protein,Serum 6.9 g/dl (6.3-8.2)
[2024-07-25 14:42] LABS: C-Reactive Protein 2.6 mg/L (0-4)
== END 2024-07-25 23:59 | disposition home or self-care (01) ==
LOC: LAB 12:37
PROVIDERS: PCP Family Medicine; Visit Provider Podiatrist
DX: S91.301A Unspecified open wound, right foot, initial encounter (principal); Z98.890 Other specified postprocedural states; L97.509 Non-pressure chronic ulcer of other part of unspecified foot with unspecified severity; E11.621 Type 2 diabetes mellitus with foot ulcer
CPT/HCPCS: 36415; 80053; 85025; 85651; 86140

== ENCOUNTER 2024-08-27 19:05 | Outpatient (CLI) | payer MEDICARE, OTHER, SELFPAY | END 2024-08-27 23:59 | disposition home or self-care (01) | LOC: LAB.DROPOF 19:06 | PROVIDERS: PCP Podiatrist; Visit Provider Podiatrist | DX: E11.621 Type 2 diabetes mellitus with foot ulcer (principal); L97.415 Non-pressure chronic ulcer of right heel and midfoot with muscle involvement without evidence of necrosis; E87.6 Hypokalemia; S90.821A Blister (nonthermal), right foot, initial encounter; M86.471 Chronic osteomyelitis with draining sinus, right ankle and foot; S91.301A Unspecified open wound, right foot, initial encounter | CPT/HCPCS: 87070; 87077; 87186; 87205 ==

== ENCOUNTER 2024-09-03 10:07 | Outpatient (CLI) | payer MEDICARE, OTHER, SELFPAY ==
--- NOTE | 2024-09-03 10:31 | XR_ITS ---
FINAL REPORT CLINICAL HISTORY: Foot Pain COMPARISON: 05/15/2024 FINDINGS: Right foot Three views were obtained. There is no fracture or dislocation. There has been interval amputation of the fourth and fifth digits at the level of the proximal metatarsals. Lucency at the amputation margin of the fifth metatarsal could be postoperative or infectious. There is no gas in the soft tissues. IMPRESSION: Interval amputation of the fourth and fifth digits. Osteomyelitis is not excluded of the fifth metatarsal remnant. Recommend continued follow-up. Reviewed, Interpreted and Dictated by Clifton Rodriguez MD Transcribed by Katlyn Hernandez Authenticated and [facility]
[2024-09-03 10:53] LABS: Basophils # 0.1 K/mm3 (0-0.2); Basophils % 0.7 % (0.1-2.0); Eosinophils # 0.4 K/mm3 (0.0-0.4); Eosinophils % 3.6 % (0.1-12.0); Hematocrit 35.8 % (37.0-47.0); Hemoglobin 11.5 g/dL (12.2-16.2); Lymphocytes # 1.7 K/mm3 (0.7-4.5); Mean Corpuscular HGB Conc 32.1 g/dL (31.8-35.4); Mean Corpuscular Hemoglobin 28.4 pg (27.0-31.2); Mean Corpuscular Volume 88.4 fl (81-99); Mean Platelet Volume 11.5 fl (7.4-10.4); Monocytes # 0.6 K/mm3 (0.1-1.0); Monocytes % 5.8 % (1.7-9.3); Neutrophils # 7.6 K/mm3 (1.8-7.8); Neutrophils % 73.2 % (37.0-80.0); Platelet Count 267 K/mm3 (142-424); Red Blood Count 4.05 M/mm3 (4.20-5.40); White Blood Count 10.4 K/mm3 (4.8-10.8)
[2024-09-03 11:12] LABS: Chloride 105 mmol/L (98-107)
[2024-09-03 11:15] LABS: Alanine Aminotransferase 14 U/L (12-78); Alkaline Phosphatase 58 U/L (38-126); Aspartate Amino Transferase 28 U/L (14-36); Bilirubin,Total 0.3 mg/dl (0.2-1.3); Blood Urea Nitrogen 42 mg/dl (7-17); Carbon Dioxide 27 mmol/L (22.0-30.0); Estimated Glomerular Filt Rate 72 ml/min (>60); GFR (African American) 87 ML/MIN (>60)
[2024-09-03 11:16] LABS: Calcium 10.1 mg/dl (8.4-10.2); Glucose 133 mg/dl (74-100)
[2024-09-03 11:21] LABS: C-Reactive Protein 20.1 mg/L (0-4)
[2024-09-03 11:29] LABS: Hemoglobin A1C 6.5 % (4.0-6.0)
[2024-09-03 11:45] LABS: Albumin Level 4.2 g/dl (3.5-5.0); Albumin/Globulin Ratio 1.5 (1.1-1.8); Anion Gap 11.5 mEq/L (5-15); Globulin 2.8 g/dL (1.3-3.2); Potassium 4.5 mmoL/L (3.5-5.1); Sodium 139 mmol/L (136-145)
[2024-09-03 12:23] LABS: Erythrocyte Sedimentation Rate 72 mm/hr (0-30)
== END 2024-09-03 23:59 | disposition home or self-care (01) ==
LOC: LAB 10:09
PROVIDERS: PCP Family Medicine; Visit Provider Podiatrist
DX: E11.9 Type 2 diabetes mellitus without complications (principal); R60.9 Edema, unspecified; M79.671 Pain in right foot; Z51.89 Encounter for other specified aftercare
CPT/HCPCS: 36415; 73630; 80053; 83036; 85025; 85651; 86140; 87070; 87077; 87186; 87205

== ENCOUNTER 2024-09-05 14:23 | Outpatient (CLI) | payer MEDICARE, OTHER, SELFPAY ==
--- NOTE | 2024-09-05 14:24 | CT_ITS ---
FINAL REPORT TECHNIQUE: Thin section axial CT images with coronal and sagittal reformats were performed. This study was performed with techniques to keep radiation doses as low as reasonably achievable (ALARA). Individualized dose reduction techniques using automated exposure control or adjustment of mA and/or kV according to the patient''s size were employed. CLINICAL HISTORY: right foot DFU, eval for Osteomyelitis 3-5th met. COMPARISON: 05/15/2024 FINDINGS: There has been interval amputation of the 4th and 5th digits to the level of the proximal metatarsals. Gas is seen in the soft tissues along the lateral midfoot near the operative site and presumed postoperative in nature. There are moderate degenerative changes of the midfoot. There is no evidence of fracture. Mild degenerative changes are seen in the hindfoot. Diffuse nonspecific edema is noted. IMPRESSION: Interval amputation of the 4th and 5th or digits to the level of the metatarsals. No definite osteomyelitis. Gas in the soft tissues along the lateral midfoot, presumed postoperative in nature. No obvious abscess. Reviewed, Interpreted and Dictated by Clifton Rodriguez MD Transcribed by Cara Frank Authenticated and [facility]
== END 2024-09-05 23:59 | disposition home or self-care (01) ==
LOC: RAD 14:24
PROVIDERS: PCP Family Medicine; Visit Provider Podiatrist
DX: E11.621 Type 2 diabetes mellitus with foot ulcer (principal); L97.415 Non-pressure chronic ulcer of right heel and midfoot with muscle involvement without evidence of necrosis; L03.115 Cellulitis of right lower limb; S91.301A Unspecified open wound, right foot, initial encounter
CPT/HCPCS: 73700

== ENCOUNTER 2024-09-10 11:56 | Inpatient (IN) | payer MEDICARE, OTHER, SELFPAY ==
[2024-09-10] VITALS (12 sets, daily range): BP systolic 129–192; BP diastolic 56–78; PULSE 67–86; RESP 17–20; TEMP 36.8–37; O2SAT 95–100; BMI 37.5; BMI 36.8
--- NOTE | 2024-09-10 12:09 | ED_ITS ---
Discharge Plan Disposition Patient Disposition: Admitted Condition: Good Clinical Impressions Clinical Impression: Wound of right foot Discharge ED Provider: Xavi Nicholson General Adult HPI <DEYVI Marshall - Last Filed: 09/10/24 16:39> General Chief complaint: Wound/Laceration Stated complaint: sent by Dr. Smith wound on right foot Time Seen by Provider: 09/10/24 12:07 Mode of Arrival: Ambulatory Source of Information: Patient Description of Symptoms (Recalled from ER Triage Doc. by RN): Pt was sent from Dr. Smith's office for evaluation of her right foot wound. Pt states she has had the wound since the middle of may. Pt has a PMH of DM2, Htn, and Parkinson History of Present Illness HPI narrative: 64-year-old female presents emergency department at the request of her dietary internship for the evaluation right foot diabetic foot ulcer versus wound versus acute on chronic osteomyelitis. Patient has no acute complaints at the bedside denies any fever chills chest pain shortness of breath nausea vomiting constipation diarrhea abdominal pain no urinary type symptomatology, does admit ongoing right foot pain, but denies any worsening drainage swelling or hot to touch sensation, the right foot. She is sent from her podiatry office, had recent imaging and workup to week to include x-rays, CT scans, blood work anticipation of what sounds like a wound debridement/drainage of the patient's right foot slated for tomorrow. Other past medical history consistent with hypertension, type 2 diabetes insulin-dependent, diabetic polyneuropathy, hyper lipidemia, Parkinson's disease, disorder, obesity, for artery disease, she is a former smoker, denies any alcohol or drug use, initial triage vitals are grossly unremarkable. Of note, attending physician did talk to the patient's anode rebuilder via the phone. Recommend starting some IV antibiotics, basic laboratory studies and admitted to the hospitalist service for anticipation being in OR tomorrow. Also of note, there was no gas or signs of abscess formation on the patient's Noncon imaging and plain film imaging performed last week. Has been on ampicillin p.o and taking as prescribed via her dietary internship. Onset (ago): month(s) Related Data Home Medications ?Medication ?Instructions ?Recorded ?Confirmed atorvastatin 20 mg tablet 20 mg PO HS 07/05/17 09/11/24 meloxicam 7.5 mg tablet 7.5 mg PO DAILY 07/05/17 09/11/24 calcium 600 mg (as 1 each PO BID 10/09/18 09/11/24 carbonate)-vitamin D3 20 mcg (800 unit) tablet aspirin 81 mg tablet,delayed 81 mg PO DAILY 05/09/19 09/11/24 release (Jacki Low Dose Aspirin) fenofibrate nanocrystallized 145 145 mg PO DAILY 10/30/19 09/11/24 mg tablet lisinopril 20 mg tablet 20 mg PO BID Hypertension 10/30/19 09/11/24 metoprolol succinate 50 mg 150 mg PO DAILY 07/05/22 09/11/24 tablet,extended release 24 hr semaglutide 7 mg tablet (Rybelsus) 7 mg PO DAILY 11/07/23 09/11/24 insulin aspart U-100 100 unit/mL 0 unit SQ DIRECTED 02/22/24 09/11/24 (3 mL) subcutaneous pen ampicillin 500 mg capsule 500 mg PO BID 09/11/24 09/11/24 carbidopa ER 50 mg-levodopa 200 mg 2 tab PO TID 09/11/24 09/11/24 tablet,extended release doxycycline hyclate 100 mg capsule 100 mg PO BID 09/11/24 09/11/24 gabapentin 300 mg capsule 300 mg PO TIDP PRN neuropathic pain 09/11/24 09/11/24 insulin glargine 100 unit/mL 30 unit SQ BID 09/11/24 09/11/24 subcutaneous solution levofloxacin 500 mg tablet 500 mg PO DAILY 09/11/24 09/11/24 metformin 500 mg tablet 1,000 mg PO BID 09/11/24 09/11/24 Previous Rx's ?Medication ?Instructions ?Recorded rivaroxaban 2.5 mg tablet (Xarelto) 2.5 mg PO BID #60 tabs 07/18/24 duloxetine 30 mg capsule,delayed 30 mg PO DAILY #90 caps 08/09/24 release duloxetine 60 mg capsule,delayed 60 mg PO DAILY #90 caps 08/09/24 release fluoxetine 40 mg capsule 40 mg PO DAILY #90 caps 08/09/24 lumateperone 42 mg capsule 42 mg PO DAILY #90 caps 08/09/24 (Caplyta) Allergies Allergy/AdvReac Type Severity Reaction Status Date / Time No Known Allergies Allergy Verified 09/10/24 10:28 [facility] <DEYVI Marshall Last Filed: 09/10/24 16:39> [facility] Disclaimer: The information contained in this section may have been updated after the patient was seen, as this information can be updated by other users. 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 Surgical History History of amputation of toe History of tonsillectomy and adenoidectomy History of skin graft History of lumpectomy of left breast History of cholecystectomy History of lumpectomy of left breast History of carpal tunnel surgery of left wrist Hx of cholecystectomy Family History Diabetes Coronary artery disease Hyperlipidemia Cancer Hypertension Stroke Social History Smoking Status: Never smoker alcohol intake: never substance use type: denies use current occupational status: disabled Travel in the last 8 weeks: None household members: spouse housing: house number of children: 0 current occupational exposures/hazards: No caffeine: Yes Other Medical History Have you received the Flu Vaccine for this season: No Have you received the Pneumonia Vaccine: Yes <DEYVI Marshall - Last Filed: 09/10/24 16:39> ROS Obtained: Yes All systems reviewed & no additional complaints except as documented Physical Exam <DEYVI Marshall - Last Filed: 09/10/24 16:39> General General appearance: alert and in no apparent distress Head Head exam: atraumatic and normocephalic Eye Eye exam: Present PERRL and EOMI ENT ENT exam: Present mucous membranes moist Neck Neck exam: Present normal inspection Chest Chest inspection: Present normal inspection and symmetric chest wall rise Respiratory Respiratory exam: Present normal lung sounds bilaterally; Absent respiratory distress Cardiovascular Cardiovascular exam: Present regular rate and normal rhythm Abdominal Exam Abdominal exam: Present soft; Absent tenderness Extremities Exam Extremities exam: Present normal inspection and full ROM Expanded Lower Extremity Exam Right: Foot/toe exam: Present deformity, erythema and amputation Neurovascular/Tendon exam: Present sensory deficit; Absent pulse deficit or motor deficit Comment: There is a open wound, with no evidence of any wound dehiscence or drainage, some mild erythema, and stage IV to unstageable diabetic foot ulcer present on the lateral aspect around the fourth and fifth metatarsals/plantar aspect of the patient's right foot. Interval digital amputation is present at the fourth and fifth metatarsals, no real eschar formation or crepitus present, otherwise patient is neurovascular intact. With some decrease sensation due to ongoing diabetes/polyneuropathy, she is chronic for her. Neurological Exam Neurological exam: Present alert and oriented X3 Psychiatric Psychiatric exam: Present normal affect Skin Skin exam: Present warm and dry Medical Decision Making <DEYVI Marshall - Last Filed: 09/10/24 16:39> Medical Records Medical records reviewed: Yes I reviewed the patient's medical records. Screening: Per USPSTF and CDC recommendations, given the prevalence of disease in our region, it is our hospital?s policy to screen for HIV and viral Hepatitis for all patients aged 18 and over and those with ongoing risk factors. Gunner Inquiry Pt receiving controlled substance: No Gunner was queried for this patient: No Vital Signs: 09/10/24 12:01 09/10/24 12:10 09/10/24 13:19 Temperature 98.3 F Temperature Source Oral Pulse Rate 80 75 Pulse Rate [Right] 78 Respiratory Rate 18 Blood Pressure 150/69 H 192/75 H Blood Pressure [Right Arm] 145/78 H Blood Pressure Mean 96 Blood Pressure Mean [Right Arm] 100 Blood Pressure Source [Right Arm] Automatic Cuff Blood Pressure Position [Right Arm] Sitting 02 Sat by Pulse Oximetry 97 95 98 Oxygen Delivery Method Room Air Room Air Room Air 09/10/24 14:07 09/10/24 14:31 09/10/24 15:00 Temperature Temperature Source Pulse Rate 74 70 70 Pulse Rate [Right] Respiratory Rate Blood Pressure 156/71 H 141/56 H 158/71 H Blood Pressure [Right Arm] Blood Pressure Mean 99 Blood Pressure Mean [Right Arm] Blood Pressure Source [Right Arm] Blood Pressure Position [Right Arm] 02 Sat by Pulse Oximetry 98 96 96 Oxygen Delivery Method Room Air Room Air Room Air 09/10/24 15:31 09/10/24 16:00 09/10/24 16:30 Temperature Temperature Source Pulse Rate 69 71 67 Pulse Rate [Right] Respiratory Rate Blood Pressure 152/65 H 141/69 H 139/62 Blood Pressure [Right Arm] Blood Pressure Mean Blood Pressure Mean [Right Arm] Blood Pressure Source [Right Arm] Blood Pressure Position [Right Arm] 02 Sat by Pulse Oximetry 95 95 97 Oxygen Delivery Method Room Air Room Air Room Air 09/10/24 16:39 09/10/24 16:50 Temperature 98.3 F Temperature Source Pulse Rate 67 Pulse Rate [Right] Respiratory Rate 18 Blood Pressure 139/62 Blood Pressure [Right Arm] Blood Pressure Mean Blood Pressure Mean [Right Arm] Blood Pressure Source [Right Arm] Blood Pressure Position [Right Arm] 02 Sat by Pulse Oximetry Oxygen Delivery Method Room Air Room Air Lab Data Lab results reviewed: Yes I reviewed the patient's lab results. Lab Results 09/10/24 12:23: WBC 11.3 H, RBC 3.93 L, Hgb 11.1 L, Hct 35.0 L, MCV 89.1, MCH 28.2, MCHC 31.7 L, RDW 14.1, Plt Count 247, MPV 11.4 H, Neut % (Auto) 71.3, Lymph % (Auto) 18.2, [place] % (Auto) 5.5, Eos % (Auto) 4.1, Baso % (Auto) 0.5, N eut # (Auto) 8.1 H, Lymph # (Auto) 2.1, [place] # (Auto) 0.6, Eos # (Auto) 0.5 H, Baso # (Auto) 0.1, Sodium 141, Potassium 4.1, Chloride 107, Carbon Dioxide 25, Anion Gap 13.1, BUN 31 H, Creatinine 0.60, Estimated Creat Clear 94, Estimated GFR 100, Est GFR ( Amer) 121, Glucose 65 L, Lactate 2.5 H, Calcium 9.6, Total Bilirubin 0.4, AST 42 H, ALT 18, Alkaline Phosphatase 41, Total Protein 7.1, Albumin 4.2, Globulin 2.9, Albumin/Globulin Ratio 1.4 09/12/24 06:05 09/12/24 06:05 Orders (Tests/Meds): ED MEDICATIONS Generic Name Dose Route Start Last Admin Trade Name Freq PRN Reason Stop Dose Admin Acetaminophen 650 mg 09/10/24 17:18 Acetaminophen 325mg Tab PO 10/10/24 17:17 Q6HP PRN Fever or Mild Pain (1-3) Atorvastatin Calcium 20 mg 09/10/24 21:00 09/11/24 22:50 Atorvastatin 20mg Tablet PO 10/10/24 20:59 20 mg HS JEFFERSON Administration Carbidopa/Levodopa 2 each 09/12/24 13:00 09/12/24 13:59 Carbidopa/Levodopa Cr 50/200mg Tablet PO 10/12/24 12:59 2 each TID JEFFERSON Administration Duloxetine HCl 90 mg 09/13/24 09:00 Duloxetine 30mg Capsule.Dr PO 10/13/24 08:59 DAILY JEFFERSON Fluoxetine HCl 40 mg 09/13/24 09:00 Fluoxetine 20mg Capsule PO 10/13/24 08:59 DAILY JEFFERSON Gabapentin 300 mg 09/12/24 12:21 Gabapentin 300mg Capsule PO 10/12/24 12:20 TIDP PRN NEUROPATHIC PAIN Levofloxacin/Dextrose 750 mg in 150 mls @ 100 mls/hr 09/11/24 16:00 09/12/24 15:34 Levofloxacin 750mg/150ml Premix IV 09/20/24 15:59 100 mls/hr Q24H JEFFERSON Administration Daptomycin 1,000 mg/ Sodium 50 mls @ 100 mls/hr 09/12/24 15:00 09/12/24 13:59 Chloride IV 09/22/24 14:59 100 mls/hr Q24H JEFFERSON Administration Insulin Human Lispro 0 unit 09/10/24 17:18 09/12/24 12:24 Humalog 100 Units/Ml 10ml Vial (Ssi) SUBCUT 10/10/24 17:17 2 unit Q6H JEFFERSON Administration Protocol Lisinopril 20 mg 09/11/24 09:00 09/12/24 08:41 Lisinopril 20mg Tablet PO 10/11/24 08:59 20 mg DAILY JEFFERSON Administration Metformin HCl 1,000 mg 09/10/24 17:30 09/12/24 08:34 Metformin 500mg Tablet PO 10/10/24 17:29 Not Given BIDWMEAL JEFFERSON Metoprolol Succinate 50 mg 09/11/24 09:00 09/12/24 08:41 Metoprolol Succinate Xl 50mg Tablet PO 10/11/24 08:59 50 mg DAILY JEFFERSON Administration Morphine Sulfate 2 mg 09/11/24 17:42 09/12/24 07:01 Morphine 2mg/Ml Syringe IV 10/11/24 17:41 2 mg Q4HP PRN Administration Moderate to Severe Pain (4-10) Ondansetron HCl 4 mg 09/11/24 16:26 09/12/24 07:07 Ondansetron 4mg/2ml Vial IV 10/11/24 16:25 4 mg Q6HP PRN Administration Nausea Phenol 0 ml 09/11/24 19:24 Phenol Throat [place] 177 Ml Bottle MM 10/11/24 19:23 NEEDED PRN Cough Rivaroxaban 2.5 mg 09/12/24 21:00 Rivaroxaban 2.5mg Tablet PO 10/12/24 20:59 BID JEFFERSON Sodium Chloride 10 ml 09/11/24 16:03 Sodium Chloride 0.9% 10ml Flush Syringe IV 09/12/24 16:03 NEEDED PRN Maintain IV Site Discontinued Medications Generic Name Dose Route Start Last Admin Trade Name Freq PRN Reason Stop Dose Admin Atorvastatin Calcium 20 mg 09/10/24 21:00 Atorvastatin 20mg Tablet PO 10/10/24 20:59 HS JEFFERSON Vancomycin/PEG/NADA/Lysine/Water 1.75 gm in 350 mls @ 175 mls/hr 09/10/24 15:45 09/10/24 16:09 Vancomycin 1.75gm/350ml (Peg) Premix IV 09/10/24 17:44 175 mls/hr ONCE ONE Administration Levofloxacin/Dextrose 750 mg in 150 mls @ 100 mls/hr 09/10/24 15:45 09/10/24 16:41 Levofloxacin 750mg/150ml Premix IV 09/20/24 15:44 100 mls/hr Q24H JEFFERSON Administration Vancomycin/PEG/NADA/Lysine/Water 1.75 gm in 350 mls @ 175 mls/hr 09/11/24 09:30 09/12/24 08:41 Vancomycin 1.75gm/350ml (Peg) Premix IV 09/21/24 09:29 175 mls/hr Q12H JEFFERSON Administration Iopamidol 75 ml 09/10/24 13:43 09/10/24 13:43 Iopamidol-370 (76%);100ml Bottle IV 09/10/24 13:44 75 ml ONCE ONE Administration Lisinopril 20 mg 09/11/24 09:00 Lisinopril 20mg Tablet PO 10/11/24 08:59 DAILY [facility] Metformin HCl 1,000 mg 09/10/24 17:30 Metformin 500mg Tablet PO 10/10/24 17:29 BIDWMEAL [facility] Metoprolol Succinate 50 mg 09/11/24 09:00 Metoprolol Succinate Xl 50mg Tablet PO 10/11/24 08:59 DAILY [facility] Morphine Sulfate 1 mg 09/11/24 16:18 09/11/24 16:50 Morphine 2mg/Ml Syringe IV 09/11/24 18:18 1 mg Q5MINP PRN Administration Mild Pain (1-3) Sodium Chloride 10 ml 09/10/24 13:43 09/10/24 13:44 Sodium Chloride 0.9% 10ml Syr (Rad Only) IV 10/10/24 13:42 10 ml NEEDED PRN Administration Maintain IV Site Sodium Chloride 10 ml 09/10/24 17:18 Sodium Chloride 0.9% 10ml Syr (Rad Only) IV 10/10/24 13:42 NEEDED PRN Maintain IV Site ORDERS Category Date Time Status CT foot RT w con Stat Cat Scan 09/10/24 12:17 Completed Podiatry Consult [Consult to Podiatry] [CONS] Routine Cons 09/10/24 17:18 Active Complete Blood Count Auto Diff Stat Lab 09/10/24 12:23 Completed Comprehensive Metabolic Panel Stat Lab 09/10/24 12:23 Completed Lactic Acid Follow Up (RFLX 1) Stat Lab 09/10/24 17:48 Completed Lactic Acid Stat Lab 09/10/24 12:23 Completed Blood Culture Stat Micro 09/10/24 13:15 Results Medical Decision Narrative: 64-year-old female presents emergency room with a right foot infection/pain, diagnosis include but not limited to diabetic foot ulcer, cellulitis, acute on chronic osteomyelitis, NST, gangrene, wet gangrene, cellulitic abscess. I discussed this patient's case with the attending physician Dr. Nicholson Will obtain basic laboratory studies lactic acid level blood cultures, and CT of the right foot with contrast for further evaluation/characterization, of note patient not flagging sepsis/SIRS criteria with no tachycardia, no hypotension, no fever. CBC notable for minimal leukocytosis at 11.3, hemoglobin hematocrit are 11.1/35%. Lactic acidosis level noted to 2.5, minimal hypoglycemia at 65, BUN is elevated at 31, AST is minimally elevated at 42. Patient's dietary internship would like us to start IV Levaquin and IV vancomycin, will start 1000 mg IV vancomycin, and 750 mg IV Levaquin. The patient's CT of the right lower extremity, the corresponding radiologic report, interval amputation of the proximal fourth and fifth metatarsal, worsening soft tissue ulceration defect to lateral foot, erosion of the distal portion of fifth metatarsal which may be related to residual osteomyelitis. I discussed the patient's case with Dr. Matute the physician on-call for Dr. Jones, at 4:16 PM. He will be the acting hospitalist/cover marker for the patient. He is agreement with current admission plan/treatment plan for n.p.o. after midnight, IV antibiotics for chronic osteomyelitis with podiatry to go to the OR in the morning. I discussed need for admission with the patient family the bedside patient famine agreement current admission plan/treatment plan. <Xavi Nicholson MD - Last Filed: 09/12/24 15:56> Vital Signs: 09/10/24 12:01 09/10/24 12:10 09/10/24 13:19 Temperature 98.3 F Temperature Source Oral Pulse Rate 80 75 Pulse Rate [Right] 78 Respiratory Rate 18 Blood Pressure 150/69 H 192/75 H Blood Pressure [Right Arm] 145/78 H Blood Pressure Mean 96 Blood Pressure Mean [Right Arm] 100 Blood Pressure Source [Right Arm] Automatic Cuff Blood Pressure Position [Right Arm] Sitting 02 Sat by Pulse Oximetry 97 95 98 Oxygen Delivery Method Room Air Room Air Room Air 09/10/24 14:07 09/10/24 14:31 09/10/24 15:00 Temperature Temperature Source Pulse Rate 74 70 70 Pulse Rate [Right] Respiratory Rate Blood Pressure 156/71 H 141/56 H 158/71 H Blood Pressure [Right Arm] Blood Pressure Mean 99 Blood Pressure Mean [Right Arm] Blood Pressure Source [Right Arm] Blood Pressure Position [Right Arm] 02 Sat by Pulse Oximetry 98 96 96 Oxygen Delivery Method Room Air Room Air Room Air 09/10/24 15:31 09/10/24 16:00 09/10/24 16:30 Temperature Temperature Source Pulse Rate 69 71 67 Pulse Rate [Right] Respiratory Rate Blood Pressure 152/65 H 141/69 H 139/62 Blood Pressure [Right Arm] Blood Pressure Mean Blood Pressure Mean [Right Arm] Blood Pressure Source [Right Arm] Blood Pressure Position [Right Arm] 02 Sat by Pulse Oximetry 95 95 97 Oxygen Delivery Method Room Air Room Air Room Air 09/10/24 16:39 09/10/24 16:50 Temperature 98.3 F Temperature Source Pulse Rate 67 Pulse Rate [Right] Respiratory Rate 18 Blood Pressure 139/62 Blood Pressure [Right Arm] Blood Pressure Mean Blood Pressure Mean [Right Arm] Blood Pressure Source [Right Arm] Blood Pressure Position [Right Arm] 02 Sat by Pulse Oximetry Oxygen Delivery Method Room Air Room Air Lab Data Lab Results 09/10/24 12:23: WBC 11.3 H, RBC 3.93 L, Hgb 11.1 L, Hct 35.0 L, MCV 89.1, MCH 28.2, MCHC 31.7 L, RDW 14.1, Plt Count 247, MPV 11.4 H, Neut % (Auto) 71.3, Lymph % (Auto) 18.2, [place] % (Auto) 5.5, Eos % (Auto) 4.1, Baso % (Auto) 0.5, N eut # (Auto) 8.1 H, Lymph # (Auto) 2.1, [place] # (Auto) 0.6, Eos # (Auto) 0.5 H, Baso # (Auto) 0.1, Sodium 141, Potassium 4.1, Chloride 107, Carbon Dioxide 25, Anion Gap 13.1, BUN 31 H, Creatinine 0.60, Estimated Creat Clear 94, Estimated GFR 100, Est GFR ( Amer) 121, Glucose 65 L, Lactate 2.5 H, Calcium 9.6, Total Bilirubin 0.4, AST 42 H, ALT 18, Alkaline Phosphatase 41, Total Protein 7.1, Albumin 4.2, Globulin 2.9, Albumin/Globulin Ratio 1.4 Orders (Tests/Meds): ED MEDICATIONS Generic Name Dose Route Start Last Admin Trade Name Freq PRN Reason Stop Dose Admin Acetaminophen 650 mg 09/10/24 17:18 Acetaminophen 325mg Tab PO 10/10/24 17:17 Q6HP PRN Fever or Mild Pain (1-3) Atorvastatin Calcium 20 mg 09/10/24 21:00 09/11/24 22:50 Atorvastatin 20mg Tablet PO 10/10/24 20:59 20 mg HS JEFFERSON Administration Carbidopa/Levodopa 2 each 09/12/24 13:00 09/12/24 13:59 Carbidopa/Levodopa Cr 50/200mg Tablet PO 10/12/24 12:59 2 each TID JEFFERSON Administration Duloxetine HCl 90 mg 09/13/24 09:00 Duloxetine 30mg Capsule.Dr PO 10/13/24 08:59 DAILY JEFFERSON Fluoxetine HCl 40 mg 09/13/24 09:00 Fluoxetine 20mg Capsule PO 10/13/24 08:59 DAILY JEFFERSON Gabapentin 300 mg 09/12/24 12:21 Gabapentin 300mg Capsule PO 10/12/24 12:20 TIDP PRN NEUROPATHIC PAIN Levofloxacin/Dextrose 750 mg in 150 mls @ 100 mls/hr 09/11/24 16:00 09/12/24 15:34 Levofloxacin 750mg/150ml Premix IV 09/20/24 15:59 100 mls/hr Q24H JEFFERSON Administration Daptomycin 1,000 mg/ Sodium 50 mls @ 100 mls/hr 09/12/24 15:00 09/12/24 13:59 Chloride IV 09/22/24 14:59 100 mls/hr Q24H JEFFERSON Administration Insulin Human Lispro 0 unit 09/10/24 17:18 09/12/24 12:24 Humalog 100 Units/Ml 10ml Vial ([facility]) SUBCUT 10/10/24 17:17 2 unit Q6H JEFFERSON Administration Protocol Lisinopril 20 mg 09/11/24 09:00 09/12/24 08:41 Lisinopril 20mg Tablet PO 10/11/24 08:59 20 mg DAILY JEFFERSON Administration Metformin HCl 1,000 mg 09/10/24 17:30 09/12/24 08:34 Metformin 500mg Tablet PO 10/10/24 17:29 Not Given BIDWMEAL JEFFERSON Metoprolol Succinate 50 mg 09/11/24 09:00 09/12/24 08:41 Metoprolol Succinate Xl 50mg Tablet PO 10/11/24 08:59 50 mg DAILY JEFFERSON Administration Morphine Sulfate 2 mg 09/11/24 17:42 09/12/24 07:01 Morphine 2mg/Ml Syringe IV 10/11/24 17:41 2 mg Q4HP PRN Administration Moderate to Severe Pain (4-10) Ondansetron HCl 4 mg 09/11/24 16:26 09/12/24 07:07 Ondansetron 4mg/2ml Vial IV 10/11/24 16:25 4 mg Q6HP PRN Administration Nausea Phenol 0 ml 09/11/24 19:24 Phenol Throat [place] 177 Ml Bottle MM 10/11/24 19:23 NEEDED PRN Cough Rivaroxaban 2.5 mg 09/12/24 21:00 Rivaroxaban 2.5mg Tablet PO 10/12/24 20:59 BID JEFFERSON Sodium Chloride 10 ml 09/11/24 16:03 Sodium Chloride 0.9% 10ml Flush Syringe IV 09/12/24 16:03 NEEDED PRN Maintain IV Site Discontinued Medications Generic Name Dose Route Start Last Admin Trade Name Freq PRN Reason Stop Dose Admin Atorvastatin Calcium 20 mg 09/10/24 21:00 Atorvastatin 20mg Tablet PO 10/10/24 20:59 HS JEFFERSON Vancomycin/PEG/NADA/Lysine/Water 1.75 gm in 350 mls @ 175 mls/hr 09/10/24 15:45 09/10/24 16:09 Vancomycin 1.75gm/350ml (Peg) Premix IV 09/10/24 17:44 175 mls/hr ONCE ONE Administration Levofloxacin/Dextrose 750 mg in 150 mls @ 100 mls/hr 09/10/24 15:45 09/10/24 16:41 Levofloxacin 750mg/150ml Premix IV 09/20/24 15:44 100 mls/hr Q24H JEFFERSON Administration Vancomycin/PEG/[place]DA/Lysine/Water 1.75 gm in 350 mls @ 175 mls/hr 09/11/24 09:30 09/12/24 08:41 Vancomycin 1.75gm/350ml (Peg) Premix IV 09/21/24 09:29 175 mls/hr Q12H JEFFERSON Administration Iopamidol 75 ml 09/10/24 13:43 09/10/24 13:43 Iopamidol-370 (76%);100ml Bottle IV 09/10/24 13:44 75 ml ONCE ONE Administration Lisinopril 20 mg 09/11/24 09:00 Lisinopril 20mg Tablet PO 10/11/24 08:59 DAILY [facility] Metformin HCl 1,000 mg 09/10/24 17:30 Metformin 500mg Tablet PO 10/10/24 17:29 BIDWMEAL [facility]FFERSON Metoprolol Succinate 50 mg 09/11/24 09:00 Metoprolol Succinate Xl 50mg Tablet PO 10/11/24 08:59 DAILY [facility] Morphine Sulfate 1 mg 09/11/24 16:18 09/11/24 16:50 Morphine 2mg/Ml Syringe IV 09/11/24 18:18 1 mg Q5MINP PRN Administration Mild Pain (1-3) Sodium Chloride 10 ml 09/10/24 13:43 09/10/24 13:44 Sodium Chloride 0.9% 10ml Syr (Rad Only) IV 10/10/24 13:42 10 ml NEEDED PRN Administration Maintain IV Site Sodium Chloride 10 ml 09/10/24 17:18 Sodium Chloride 0.9% 10ml Syr (Rad Only) IV 10/10/24 13:42 NEEDED PRN Maintain IV Site ORDERS Category Date Time Status CT foot RT w con Stat Cat Scan 09/10/24 12:17 Completed Podiatry Consult [Consult to Podiatry] [CONS] Routine Cons 09/10/24 17:18 Active Complete Blood Count Auto Diff Stat Lab 09/10/24 12:23 Completed Comprehensive Metabolic Panel Stat Lab 09/10/24 12:23 Completed Lactic Acid Follow Up (RFLX 1) Stat Lab 09/10/24 17:48 Completed Lactic Acid Stat Lab 09/10/24 12:23 Completed Blood Culture Stat Micro 09/10/24 13:15 Results Medical Decision Narrative: 64-year-old female presents emergency room with a right foot infection/pain, diagnosis include but not limited to diabetic foot ulcer, cellulitis, acute on chronic osteomyelitis, NST, gangrene, wet gangrene, cellulitic abscess. I discussed this patient's case with the attending physician Dr. Nicholson Will obtain basic laboratory studies lactic acid level blood cultures, and CT of the right foot with contrast for further evaluation/characterization, of note patient not flagging sepsis/SIRS criteria with no tachycardia, no hypotension, no fever. CBC notable for minimal leukocytosis at 11.3, hemoglobin hematocrit are 11.1/35%. Lactic acidosis level noted to 2.5, minimal hypoglycemia at 65, BUN is elevated at 31, AST is minimally elevated at 42. Patient's dietary internship would like us to start IV Levaquin and IV vancomycin, will start 1000 mg IV vancomycin, and 750 mg IV [place]. The patient's CT of the right lower extremity, the corresponding radiologic report, interval amputation of the proximal fourth and fifth metatarsal, worsening soft tissue ulceration defect to lateral foot, erosion of the distal portion of fifth metatarsal which may be related to residual osteomyelitis. I discussed the patient's case with Dr. Matute the physician on-call for Dr. Jones, at 4:16 PM. He will be the acting hospitalist/cover marker for the patient. He is agreement with current admission plan/treatment plan for n.p.o. after midnight, IV antibiotics for chronic osteomyelitis with podiatry to go to the OR in the morning. I discussed need for admission with the patient family the bedside patient famine agreement current admission plan/treatment plan. I was consulted by the GINGER, and we discussed the complexity of the problems being addressed. I approved the treatment and management plan for this patient's care in the Emergency Department, thus performing a substantive portion of the medical decision making. Xavi Nicholson MD Critical Care <DEYVI Marshall - Last Filed: 09/10/24 16:39> Critical Care Time Critical Care Time: No
--- NOTE | 2024-09-10 12:17 | CT_ITS ---
FINAL REPORT TECHNIQUE: Thin section axial CT images with coronal and sagittal reformats were performed. This study was performed with techniques to keep radiation doses as low as reasonably achievable (ALARA). Individualized dose reduction techniques using automated exposure control or adjustment of mA and/or kV according to the patient''s size were employed. CLINICAL HISTORY: right Foot osteomyelitis, DFU COMPARISON: 09/05/2024 FINDINGS: There is no fracture or dislocation. There is an os trigonum measuring 1 cm. There is a small plantar calcaneal spur. There are postoperative changes of prior amputation through the proximal fourth and fifth metatarsals. There is a large soft tissue defect along the lateral aspect of the foot extending to the amputated margin of the fifth metatarsal. Defect has significantly increased from prior exam. Bony erosion is seen along the inferior margin of the transected fifth metatarsal with questionable residual osteomyelitis. IMPRESSION: Interval amputation of the proximal fourth and fifth metatarsals. Worsening soft tissue ulceration and defect at the lateral foot. Erosion of the distal portion of the fifth metatarsal which may be related to residual osteomyelitis. Reviewed, Interpreted and Dictated by Manolo Grullon MD Transcribed by Pam Ramos Authenticated and . [facility]
--- NOTE | 2024-09-10 12:30 | PC.NURSE ---
1st set of blood cultures sent to lab
[2024-09-10 12:31] LABS: Basophils # 0.1 K/mm3 (0-0.2); Basophils % 0.5 % (0.1-2.0); Eosinophils # 0.5 K/mm3 (0.0-0.4); Eosinophils % 4.1 % (0.1-12.0); Hemoglobin 11.1 g/dL (12.2-16.2); Lymphocytes # 2.1 K/mm3 (0.7-4.5); Lymphocytes % 18.2 % (10-50); Mean Corpuscular HGB Conc 31.7 g/dL (31.8-35.4); Mean Corpuscular Hemoglobin 28.2 pg (27.0-31.2); Mean Corpuscular Volume 89.1 fl (81-99); Mean Platelet Volume 11.4 fl (7.4-10.4); Monocytes # 0.6 K/mm3 (0.1-1.0); Monocytes % 5.5 % (1.7-9.3); Neutrophils # 8.1 K/mm3 (1.8-7.8); Neutrophils % 71.3 % (37.0-80.0); Platelet Count 247 K/mm3 (142-424); Red Blood Count 3.93 M/mm3 (4.20-5.40); Red Cell Distribution Width 14.1 % (11.5-17.5); White Blood Count 11.3 K/mm3 (4.8-10.8)
[2024-09-10 12:54] LABS: Alanine Aminotransferase 18 U/L (12-78); Albumin Level 4.2 g/dl (3.5-5.0); Albumin/Globulin Ratio 1.4 (1.1-1.8); Alkaline Phosphatase 41 U/L (38-126); Anion Gap 13.1 mEq/L (5-15); Aspartate Amino Transferase 42 U/L (14-36); Bilirubin,Total 0.4 mg/dl (0.2-1.3); Blood Urea Nitrogen 31 mg/dl (7-17); Calcium 9.6 mg/dl (8.4-10.2); Carbon Dioxide 25 mmol/L (22.0-30.0); Chloride 107 mmol/L (98-107); Creatinine Clearance Estimated 94 mL/min (50-200); Estimated Glomerular Filt Rate 100 ml/min (>60); GFR (African American) 121 ML/MIN (>60); Globulin 2.9 g/dL (1.3-3.2); Glucose 65 mg/dl (74-100); Potassium 4.1 mmoL/L (3.5-5.1); Sodium 141 mmol/L (136-145); Total Protein,Serum 7.1 g/dl (6.3-8.2)
[2024-09-10 13:02] LABS: Lactic Acid 2.5 mmol/L (0.7-2.1)
[2024-09-10] MEDS: IOPAMIDOL-370 (76%);100ML BOTTLE 75 ML IV (13:43)
[2024-09-10] MEDS: SODIUM CHLORIDE 0.9% 10ML SYR (RAD ONLY) 10 ML IV (13:44)
--- NOTE | 2024-09-10 15:15 | PC.NURSE ---
radiology reports that scan are still being read
--- NOTE | 2024-09-10 15:55 | PC.NURSE ---
Dr. Jones paged for DEYVI Marshall
[2024-09-10] MEDS: VANCOMYCIN/WATER FOR INJ (PEG) 1.75 GM/350 ML PIGGYBACK IV (16:09)
[2024-09-10 16:29] LABS: Reflex Lactic Add Lactic Reflex
--- NOTE | 2024-09-10 16:40 | PC.NURSE ---
report given to rodriguez on second floor
[2024-09-10] MEDS: LEVOFLOXACIN/D5W 750 MG/150 ML 750 MG/150 ML PIGGYBACK 100 MG IV (16:41)
--- NOTE | 2024-09-10 16:49 | PC.NURSE ---
1640hrs- as per the MAR patient administered 750mg in 150mL's of levofloxacin at a rate of 100 mL's an hour.
--- NOTE | 2024-09-10 16:53 | PC.NURSE ---
arrived by w/c from ED
[2024-09-10 18:15] LABS: Lactic Acid Follow Up (RFLX 1) 1.3 mmol/L (0.7-2.1)
--- NOTE | 2024-09-10 18:29 | P.CONS_ITS ---
History of Present Illness *Admission Date: 09/10/24 *Reason for visit:: Right foot DFU, OM *History of present illness: Patient is a 64 DM female who was seen by Podaitry in the office this morning. She is well known to them and had surgery, 05/15/24: S/p Right foot incision and drainage, wide excisional debridement nonviable soft tissue and bone, right partial 4-5th ray amputation. She has been getting weekly office wound debridement. Labs, xr reviewed ordered last week. I independently interpreted the x-rays. On the AP and MO views there is new cortical lucency noted to the base of the fourth met laterally and the fifth metatarsal at the prior amputation site when compared with images from 05/15/2024. Concern for osteomyelitis. Planned for CT to evaluate for osteomyelitis as it would change our treatment plan to include debridement versus further bone resection, possible transmetatarsal amputation. CT right foot 09/05/24 reviewed/images shown to pt. I believe there is OM to 4-5th mets. Report read as no OM. Given worsening appearance, drainage, malodor recommend patient go to ER for IV abx, admission, CT right foot, surgery for I&D, wound debridement with possible amputation and wound vac placement tomorrow. All questions answered. Pt/ verbalized understanding and agreement with tx plan. *Discussed with PCP, Dr Jones who agreed to admission w/ plan for outpatient PICC line, IV abx and C for 2x weekly dressing changes. [facility] Disclaimer: The information contained in this section may have been updated after the patient was seen, as this information can be updated by other users. 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 Currently on second-generation antipsychotic Surgical History History of amputation of toe History of tonsillectomy and adenoidectomy History of skin graft History of lumpectomy of left breast History of cholecystectomy History of lumpectomy of left breast History of carpal tunnel surgery of left wrist Hx of cholecystectomy Family History Other Cancer Coronary artery disease Diabetes Hyperlipidemia Hypertension Stroke Social History Smoking Status: Never smoker alcohol intake: never substance use type: denies use current occupational status: disabled Travel in the last 8 weeks: None household members: spouse housing: house number of children: 0 current occupational exposures/hazards: No caffeine: Yes Have you lived/traveled outside [place] in past 30 days?: No Contact w/someone who lives/traveled outside US past 30 days?: No Exposure to someone with infectious disease in past 14 days?: No Do you have a fever (greater than 100.4 F or 38 C)?: No Have you tested positive for COVID-19: No Exposed to someone with COVID-19 in past 14 days?: No Do you have a sore throat?: No Do you have a cough?: No Do you have any weakness?: No Do you have any diarrhea?: No Are you experiencing any unusual bleeding?: No Do you have any muscle aches/pain?: No Do you have any abdominal pain?: No Are you experiencing loss of taste or smell?: No Review of Systems Review of Systems Review of systems:: pertinent systems reviewed and negative unless documented below Constitutional Constitutional: Reports as per HPI and Reports fatigue Eyes Eyes: Reports as per HPI ENT Ears, Nose, Mouth, and Throat: Reports as per HPI *Cardiovascular Cardiovascular: Reports as per HPI *Respiratory Respiratory: Reports as per HPI *Gastrointestinal Gastrointestinal: Reports system reviewed and no additional complaints, except as documented, Reports nausea and Denies vomiting *Genitourinary Genitourinary: Reports as per HPI *Musculoskeletal Musculoskeletal: Reports as per HPI Comments: Small skin abrasion to the side of the scalp and to mid lip Integumentary/Breasts Skin/Breast: Reports as per HPI *Neurologic Neurologic: Reports paresthesias Comments: Hearing is adequate she understands normal volume of speech Psychiatric Psychiatric: Reports as per HPI Comments: The patient is alert and oriented to where she is. Slow to respond, but does eventually get around to answering all questions. Endocrine Endocrine: Reports as per HPI and Reports fatigue Hematologic/Lymphatic Hematologic/Lymphatic: Reports as per HPI and Reports easy bruising Allergic/Immunologic Allergic/Immunologic: Reports as per HPI Meds Home Medications and Allergies Home Medications ?Medication ?Instructions ?Recorded ?Confirmed ?Type atorvastatin 20 mg tablet 20 mg PO HS High cholesterol 07/05/17 09/10/24 History meloxicam 7.5 mg tablet 7.5 mg PO DAILY 07/05/17 09/10/24 History metformin 500 mg tablet 1,000 mg PO BID Diabetes 07/05/17 09/10/24 History multivitamin 1 each PO DAILY Supplement 07/05/17 09/10/24 History L.acidoph,paracasei,B.animalis 10 1 each PO DAILY Supplement 10/09/18 09/10/24 History billion cell capsule calcium 600 mg (as 1 each PO BID Supplement 10/09/18 09/10/24 History carbonate)-vitamin D3 20 mcg (800 unit) tablet aspirin 81 mg tablet,delayed 81 mg PO DAILY 05/09/19 09/10/24 History release (Jacki Low Dose Aspirin) fenofibrate nanocrystallized 145 145 mg PO DAILY 10/30/19 09/10/24 History mg tablet lisinopril 20 mg tablet 20 mg PO DAILY Hypertension 10/30/19 09/10/24 History metoprolol succinate 50 mg 50 mg PO DAILY 07/05/22 09/10/24 History tablet,extended release 24 hr pen needle, diabetic 31 gauge x #1,200 ea 05/24/23 09/10/24 History 3/16 (BD Ultra-Fine Mini Pen Needle) semaglutide 7 mg tablet (Rybelsus) 7 mg PO DAILY 11/07/23 09/10/24 History insulin glargine 100 unit/mL 50 unit (0.5 mL) SQ BID Diabetes 11/08/23 09/10/24 Rx subcutaneous solution #1 mL insulin aspart U-100 100 unit/mL 0 unit SQ DIRECTED Diabetes 02/22/24 09/10/24 History (3 mL) subcutaneous pen ascorbic acid (vitamin C) 1,000 mg 500 mg PO DAILY 03/06/24 09/10/24 History chewable tablet gabapentin 300 mg capsule 300 mg PO TID PRN neuropathic pain 05/20/24 09/10/24 Rx #90 caps rivaroxaban 2.5 mg tablet (Xarelto) 2.5 mg PO BID #60 tabs 07/18/24 09/10/24 Rx collagenase clostridium histo. 250 1 applic topical QDAY wound care 07/25/24 09/10/24 Rx unit/gram topical ointment (Santyl) 30 days #90 grams carbidopa ER 50 mg-levodopa 200 mg 2 tab PO TID Parkinsonian syndrome 08/02/24 09/10/24 Rx tablet,extended release #540 tabs duloxetine 30 mg capsule,delayed 30 mg PO DAILY #90 caps 08/09/24 09/10/24 Rx release duloxetine 60 mg capsule,delayed 60 mg PO DAILY #90 caps 08/09/24 09/10/24 Rx release fluoxetine 40 mg capsule 40 mg PO DAILY #90 caps 08/09/24 09/10/24 Rx lumateperone 42 mg capsule 42 mg PO DAILY #90 caps 08/09/24 09/10/24 Rx (Caplyta) ampicillin 500 mg capsule 500 mg PO BID Infection 10 days 09/02/24 09/10/24 Rx #20 caps doxycycline hyclate 100 mg capsule 100 mg PO BID Infection 10 days 09/03/24 09/10/24 Rx #20 caps levofloxacin 500 mg tablet 500 mg PO Q24H infection 10 days 09/03/24 09/10/24 Rx #10 tabs New Prescriptions to Start Prescriptions: Allergies Allergy/AdvReac Type Severity Reaction Status Date / Time No Known Allergies Allergy Verified 09/10/24 10:28 Exam (Inpt) Vital signs and Labs for Last 24 Hours: Temp Pulse Resp BP Pulse Ox O2 Del Method 98.6 F 67 20 139/62 96 Room Air 09/10/24 16:53 09/10/24 16:53 09/10/24 16:53 09/10/24 16:53 09/10/24 16:53 09/10/24 16:53 Laboratory Results - last 24 hr 09/10/24 12:23: WBC 11.3 H, RBC 3.93 L, Hgb 11.1 L, Hct 35.0 L, MCV 89.1, MCH 28.2, MCHC 31.7 L, RDW 14.1, Plt Count 247, MPV 11.4 H, Neut % (Auto) 71.3, Lymph % (Auto) 18.2, [place] % (Auto) 5.5, Eos % (Auto) 4.1, Baso % (Auto) 0.5, N eut # (Auto) 8.1 H, Lymph # (Auto) 2.1, [place] # (Auto) 0.6, Eos # (Auto) 0.5 H, Baso # (Auto) 0.1, Sodium 141, Potassium 4.1, Chloride 107, Carbon Dioxide 25, Anion Gap 13.1, BUN 31 H, Creatinine 0.60, Estimated Creat Clear 94, Estimated GFR 100, Est GFR ( Amer) 121, Glucose 65 L, Lactate 2.5 H, Calcium 9.6, Total Bilirubin 0.4, AST 42 H, ALT 18, Alkaline Phosphatase 41, Total Protein 7.1, Albumin 4.2, Globulin 2.9, Albumin/Globulin Ratio 1.4 09/10/24 17:48: Lactate 1.3 I & O for Labs for Last 24 Hours: Intake & Output 09/08/24 09/09/24 09/10/24 09/11/24 12:59 11:59 11:59 11:59 Output Total 0 / 0 Balance 0 / 0 Weight 229 lb 1 oz Constitutional: Present no acute distress and cooperative Head: Present normocephalic Eye: Present as per HPI Neck: Present trachea midline Respiratory: Present normal respiratory effort, able to speak in complete sentences and symmetric chest movement Cardiac: Present posterior tibial pulses present and pedal pulses present Comments:: deferred Rectal (female): Present deferred (female): Present deferred Extremities: Present edema (2 + pedal, LE edema, diabetic foot ulceration noted between fourth and fifth toes, ulceration does probe to bone ( 4th metatarsal)); Absent calf tenderness Comment:: 05/15/24- right foot WCX obtained, Purulent,malodorous drainage noted. Skin: Present erythema, warm and wounds (Right 4th- 5th inner space DFU-probes to bone) Comment:: Per Podiatry office visit today, 09/10/24: right dorsal lateral foot open wound with DFU. [place]vashi wound erythema and edema noted with worse malodor to lateral foot. POP to dorsal lateral skin. 1cc purulent drainage expressed. WCx taken. Dry gangrene/eschar noted circumferential around the entire foot has got smaller and is lifting up. Fibrotic slough noted. Skin cleansed. Sharp excisional full thickness debridement with 15' blade, forceps thru skin, subq into/including deep fascia, exposed lateral extensor tendon (new exposed 5th metatarsal bone) and intact eschar wound cross hatched. Some loose eschar removed. Some mild bleeding noted around borders of the wound. Post debridement: 15% black eschar, 60% yellow/brown fibrotic, 25% granular, and 17.8 x 7.6 x 3.2cm. Neuro: Present Motor Function Intact, oriented x 3, tone normal and moves all extremities; Absent Sensory Function Intact Ankle: right: erythema (Right 2+edema, cellulitis) and right: swelling Feet/Toes: right: swelling (2+ pedal edema, ), right: tenderness (Neuropathy, no sensation noted to bilateral feet) and right: wound (R 4th-5th toes DFU ) and bilateral: hammer toe, bilateral: nail abnormalities (thick, dystrophic ) and bilateral: onychomycosis Comments:: R 4th-5th toes DFU ~0.3x0.3x1.0cm Inspection: Present foot deformity deformity: Present hammer toes, nail disorder, skin break, infection and ulceration (Right 4th-5th toe DFU, scheduled for surgery for toe amputation this afternoon. ) Pulses: L dorsalis pedis pulse: normal, R dorsalis pedis pulse: normal, L posterior tibial pulse: normal and R posterior tibial pulse: normal CFT: normal: CFT Monofilament exam: R 1st metatarsals: absent, R 3rd metatarsals: absent, R 5th metatarsals: absent, R great toe: absent, R 3rd toe: absent and R 5th toe: absent Pinprick: R great toe: abnormal Results Labs 09/10/24 12:23 09/10/24 12:23 Labs: Abnormal lab results 09/10/24 Range/Units 12:23 WBC 11.3 H (4.8-10.8) K/mm3 RBC 3.93 L (4.20-5.40) M/mm3 Hgb 11.1 L (12.2-16.2) g/dL Hct 35.0 L (37.0-47.0) % MCHC 31.7 L (31.8-35.4) g/dL MPV 11.4 H (7.4-10.4) fl Neut # (Auto) 8.1 H (1.8-7.8) K/mm3 Eos # (Auto) 0.5 H (0.0-0.4) K/mm3 BUN 31 H (7-17) mg/dl Glucose 65 L (74-100) mg/dl Lactate 2.5 H (0.7-2.1) mmol/L AST 42 H (14-36) U/L H & H 09/10/24 Range/Units 12:23 Hgb 11.1 L (12.2-16.2) g/dL Hct 35.0 L (37.0-47.0) % All other labs normal. Diagnostic results Ankle/Foot CT: report reviewed and image reviewed ((+) OM right foot) Assessment and Plan *Assessment and plan (1) Cellulitis of right foot: Status: Acute Category: Medical Code(s): L03.115 - Cellulitis of right lower limb (2) Osteomyelitis of right foot: Status: Resolved Qualifiers: Osteomyelitis type: chronic, with draining sinus Qualified Code(s): M 86.471 - Chronic osteomyelitis with draining sinus, right ankle and foot Category: Medical Code(s): M86.9 - Osteomyelitis, unspecified (3) Diabetic foot ulcer: Status: Acute Qualifiers: Diabetic foot ulcer location: midfoot Diabetes mellitus type: type 2 L aterality: right Non-pressure ulcer stage: with muscle involvement without evidence of necrosis Qualified Code(s): E11.621 - Type 2 diabetes mellitus with foot ulcer; L97.415 - Non-pressure chronic ulcer of right heel and midfoot with muscle involvement without evidence of necrosis Category: Medical Code(s): E11.621 - Type 2 diabetes mellitus with foot ulcer; L97.509 - Non-pressure chronic ulcer of other part of unspecified foot with unspecified severity (4) Diabetes mellitus with diabetic neuropathy: Status: Chronic Qualifiers: Diabetes mellitus type: type 2 Diabetes mellitus group home insulin use: with group home use Qualified Code(s): E11.40 - Type 2 diabetes mellitus with diabetic neuropathy, unspecified; 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 Category: Medical Code(s): E11.40 - Type 2 diabetes mellitus with diabetic neuropathy, unspecified (5) Obesity, Class II, BMI 35-39.9: Status: Acute Category: Medical Code(s): E66.812 - Obesity, class 2 (6) Edema of right lower leg due to peripheral venous insufficiency: Status: Acute Category: Medical Code(s): I87.2 - Venous insufficiency (chronic) (peripheral); R60.0 - Localized edema Plan Surgery, 05/15/24: S/p Right foot incision and drainage, wide excisional debridement nonviable soft tissue and bone, right partial 4-5th ray amputation Intraop Specimens: Right foot tissue culture: Enterococcus faecalis, Staphylococcus intermedius (MRS) Micro: Right foot WCx: Citrobacter koseri, Staphylococcus capitis, Enterococcus faecalis Right 4-5th toe bone culture: Staphylococcus aureus, Enterococcus faecalis (VRE) Right 4-5th metatarsal bone culture: Enterococcus faecalis Path: Right 4-5th toes: Epidermal ulceration with underlying suppuration (involving both digits). Spotty acute osteomyelitis. Soft tissue surgical margins appear viable but involved by acute inflammation. 4th metatarsal bone proximal margin: Benign bone and fibromuscular tissue. Negative for significant acute inflammatory infiltrate. 5th metatarsal bone proximal margin: Benign bone. Negative for significant acute inflammatory infiltrate. 06/03/24, Right foot WCx: NG bacteria, YEAST ISOLATED. LAB WILL HOLD FOR 5 DAYS. IF FURTHER TESTING IS NEEDED, CONTACT LAB. 06/10/24. Lab contacted to further test, results: Trichophyton species -IV abx: was on Vanco 1g, Ertapenem 1g daily per PCP x6wks (05/20-07/01/24) Stopped Vanco. -PICC, IV abx: complete Ertapenem 500mg daily (05/20-07/01/24) and Dapto 1g q24h x6 wks (05/27-07/08/24). -Pulled PICC 07/12/24. Completed oral fluconazole 200mg qd and Doxy 100mg BID x14d (07/11-07/26/24). Imagin06/03/24, ABIs Right PT 1.09 (188), DP 1.38 (239), TBI 1.18 (205) and Left PT 1.41(244), DP 1.20 (207), TBI 1.10 (191) Report Comments: Noncompressible. CONCLUSION: Elevated ankle-brachial indices in the bilateral lower extremities, resulting in noncompressible vessels. 07/04/24, Agram. ANGIOGRAPHIC RESULTS: Distal abdominal aorta is patent. Bilateral common internal and external iliac arteries are widely patent. Bilateral common femoral arteries patent. Bilateral SFA and profunda femoris arteries patent. Bilateral popliteal arteries patent. The 3 infrageniculate vessels are proximally patent and then slowly lose contrast opacification distally suggesting microvascular disease. 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 PLAN: 1. Medical management. 2. Supportive care. 3. Xarelto 2.5 twice daily plus aspirin 81 mg daily. 09/03/24, 3v right foot xr. CLINICAL HISTORY: Foot Pain. COMPARISON: 05/15/24. FINDINGS: Right foot 3 views were obtained. There is no fracture or dislocation. There has been interval amputation of the fourth and fifth digits at the level of the proximal metatarsals. Lucency at the amputation margin of the fifth metatarsal could be postoperative or infectious. There is no gas in the soft tissues. IMPRESSION: Interval amputation of the fourth and fifth digits. Osteomyelitis is not excluded of the fifth metatarsal remnant. Recommend continued follow-up. Reviewed, Interpreted and Dictated by Clifton Rodriguez MD. Transcribed by Katlyn Hernandez. 09/05/24, CT right foot. CLINICAL HISTORY: right foot DFU, eval for Osteomyelitis 3-5th met. COMPARISON: 05/15/2024. FINDINGS: There has been interval amputation of the 4th and 5th digits to the level of the proximal metatarsals. Gas is seen in the soft tissues along the lateral midfoot near the operative site and presumed postoperative in nature. There are moderate degenerative changes of the midfoot. There is no evidence of fracture. Mild degenerative changes are seen in the hindfoot. Diffuse nonspecific edema is noted. IMPRESSION: Interval amputation of the 4th and 5th or digits to the level of the metatarsals. No definite osteomyelitis. Gas in the soft tissues along the lateral midfoot, presumed postoperative in nature. No obvious abscess. Reviewed, Interpreted and Dictated by Clifton Rodriguez MD. Transcribed by Cara Frank. 09/10/24, CT right foot. CLINICAL HISTORY: right Foot osteomyelitis, DFU. COMPARISON: 09/05/2024. FINDINGS: There is no fracture or dislocation. There is an os trigonum measuring 1 cm. There is a small plantar calcaneal spur. There are postoperative changes of prior amputation through the proximal fourth and fifth metatarsals. There is a large soft tissue defect along the lateral aspect of the foot extending to the amputated margin of the fifth metatarsal. Defect has significantly increased from prior exam. Bony erosion is seen along the inferior margin of the transected fifth metatarsal with questionable residual osteomyelitis. IMPRESSION: Interval amputation of the proximal fourth and fifth metatarsals. Worsening soft tissue ulceration and defect at the lateral foot. Erosion of the distal portion of the fifth metatarsal which may be related to residual osteomyelitis. Reviewed, Interpreted and Dictated by Manolo Grullon MD. Transcribed by Pam Ramos. Specimens: 08/27/24, Right foot WCx: Gram Stain: Few Gram Positive Bacilli, Rare Gram Positive Cocci, Few Gram Negative Rods. Tissue Culture Preliminary, 08/29/24- 947: Organism 1: Gram Negative Rods Enterobacter cloacae, Staphylococcus aureus (MRSA), Corynebacterium matruchotii 08/27/24, Right foot TCx: Enterobacter cloacae, Staphylococcus aureus (MRSA), Corynebacterium matruchotii, Enterococcus faecalis (S: Vanco, Cefepime) 09/03/24, Right foot WCx: MRSA 09/10/24, Right foot WCx: pending 09/10/24, POV #14, POD #16w, 5d -S/p Right foot incision and drainage, wide excisional debridement nonviable soft tissue and bone, right partial 4-5th ray amputation on 05/15/24. -Presents PWB in postop shoe, walker. -Right foot dsg intact. -Wound cleaned. Sharp excisional full thickness debridement. See wound note. -Some edema, erythema with worse malodor noted. Dorsal lateral foot had 1cc purulence. -New WCx taken 09/03/24 from right lateral foot. WCx from 08/27/24 reviewed, see above. New WCx taken today. -eRx Doxy 100mg, Levo 500mg x10d (08/26-09/06/24). eRx refill x10d (09/16/24). add eRx Ampicillin 500mg x10d (09/03-09/13/24). -Santyl to eschar, Betadine soaked gauze, DSD applied. -WBaT to right foot in postop shoe w/ walker or WC. -Labs, xr reviewed after ALBINO. I independently interpreted the x-rays. On the AP and MO views there is new cortical lucency noted to the base of the fourth met laterally and the fifth metatarsal at the prior amputation site when compared with images from 05/15/2024. Concern for osteomyelitis. Plan for CT to evaluate for osteomyelitis as it would change our treatment plan to include debridement versus further bone resection, possible transmetatarsal amputation. CT reviewed/images shown to pt. I believe there is OM to 4-5th mets. Report read as no OM. Given worsening appearance, drainage, malodor recommend patient go to ER for IV abx, admission, CT right foot, surgery for I&D, wound debridement with possible amputation and wound vac placement tomorrow. All questions answered. Pt/ verbalized understanding and agreement with tx plan. *Discussed with PCP, Dr Jones who agreed to admission w/ plan for outpatient PICC line, IV abx and HHC for 2x weekly dressing changes. Pre-op: Patient is a 64 DM female who presents with worsening right DM foot infection and suspected osteomyelitis. We discussed conservative versus surgical treatment options. Conservative treatment options include local wound care, oral and IV antibiotics, change in shoe wear, taping/padding, and off-loading. We discussed surgical intervention for transmetatarsal/tarsometatarsal joint amputation. Patient understands that there is a chance that the foot may change shape after surgery or she will need PT for gait training. Patient also understands that they could have wound healing complications including delayed healing and infection. We discussed that if the wound does not heal, it is possible that they may need a more proximal amputation and could result in further loss of digits, loss of partial foot or loss of leg. We discussed the risks and benefits in great detail. Other surgical risks include: prolonged/permanent pain and swelling, further infection requiring oral or IV antibiotics, delay in healing of soft tissue or bone, nerve or blood vessel damage, CRPS/RSD, DVT, anesthesia complications, and even . All questions answered. Patient verbalized understanding. Written consent obtained. -ER for workup - admission per PCP team -Podiatry consult -IV abx: Dapto vs Vanco + Levo -PICC with IV abx (possible Dapto 1g q24h, Levo 500mg) -HHC for 2x weekly dressing changes -NPO after midnight -Plan for surgery: 09/11/24: right foot debridement of non-viable soft tissue and bone, transmetatarsal/tarsometatarsal joint amputation, possible wound vac application
--- NOTE | 2024-09-10 18:42 | ECG_ITS ---
APPROVED REPORT Exam: Resting ECG HR:63 bpm ECG Measurements Heart Rate 63 AXES NM 132 P 0 QRSd 89 QRS -8 QT 429 T 4 QTc 436 Conclusion SINUS RHYTHM MINIMAL VOLTAGE CRITERIA FOR LVH, CONSIDER NORMAL VARIANT [MEETS CRITERIA IN ONE OF: R(aVL), S(V1), R(V5), R(V5/V6)+S(V1)] POSSIBLE ANTERIOR MYOCARDIAL INFARCTION , PROBABLY OLD [30 ms Q WAVE IN V3/V4, OR R < 0.2 mV IN V4] BORDERLINE ECG UNCONFIRMED REPORT Electronically signed by : Mohinder Matute MD 09/16/2024 08:55:31
[2024-09-10] MEDS: ATORVASTATIN 20MG TABLET 20 MG PO (21:34)
[2024-09-10 23:33] LABS: POC Glucose,Bedside 78 (70-110)
[2024-09-11] VITALS (23 sets, daily range): BP systolic 104–140; BP diastolic 50–89; PULSE 69–93; RESP 12–20; TEMP 36.3–37.2; O2SAT 91–98; BMI 36.6
--- NOTE | 2024-09-11 04:48 | PC.NURSE ---
Pt. is alert and orientated x 4. Pt. is on room air. Pt. has dressing to right foot. Pt. to go to the OR today for debridement of foot wound and possible amputation of toes, Pt. Has Diabetes, has had wound and chronic osteomylititis Pt. able to ambulate from the bed to bathroom and back with use of a cast shoe on right foot and a walker. Dressing on right foot. with drainage to medial aspect of the foot. dressing reinforced as Pt. going to OR today. Pt. denies any pain to the foot. Pt. slept off and on overnight. VSS. Personal items and call brian in reach.
[2024-09-11 06:08] LABS: POC Glucose,Bedside 114 (70-110)
--- NOTE | 2024-09-11 07:21 | P.PN_ITS ---
Subjective *Date: 09/11/24 *Time: 07:37 Interval history: Patient was awakened resting sitting up in the bed this morning, states she did not sleep much through the night. She denied any pain this morning. We discussed plans for surgery today and surgical consent was obtained for right f oot debridement of nonviable soft tissue and bone, transmetatarsal/tarsometatarsal joint amputation, possible wound VAC application. Did not have any additional questions regarding the procedure for today. Ortho Exam (Inpt) Vital signs and Labs for Last 24 Hours: Temp Pulse Resp BP Pulse Ox O2 Del Method 97.4 F L 70 18 140/70 97 Room Air 09/11/24 00:00 09/11/24 00:00 09/11/24 00:00 09/11/24 00:00 09/11/24 00:00 09/11/24 05:00 Laboratory Results - last 24 hr 09/10/24 12:23: WBC 11.3 H, RBC 3.93 L, Hgb 11.1 L, Hct 35.0 L, MCV 89.1, MCH 28.2, MCHC 31.7 L, RDW 14.1, Plt Count 247, MPV 11.4 H, Neut % (Auto) 71.3, Lymph % (Auto) 18.2, [place] % (Auto) 5.5, Eos % (Auto) 4.1, Baso % (Auto) 0.5, Johnson t # (Auto) 8.1 H, Lymph # (Auto) 2.1, [place] # (Auto) 0.6, Eos # (Auto) 0.5 H, Baso # (Auto) 0.1, Sodium 141, Potassium 4.1, Chloride 107, Carbon Dioxide 25, Anion Gap 13.1, BUN 31 H, Creatinine 0.60, Estimated Creat Clear 94, Estimated GFR 100, Est GFR ( Amer) 121, Glucose 65 L, Lactate 2.5 H, Calcium 9.6, Total Bilirubin 0.4, AST 42 H, ALT 18, Alkaline Phosphatase 41, Total Protein 7.1, Albumin 4.2, Globulin 2.9, Albumin/Globulin Ratio 1.4 09/10/24 17:48: Lactate 1.3 09/10/24 22:22: POC Glucose 78 09/11/24 05:57: POC Glucose 114 H I & O for Labs for Last 24 Hours: Intake & Output 09/09/24 09/09/24 09/10/24 09/11/24 00:59 23:59 23:59 23:59 Intake Total 500 / 500 Output Total 0 / 0 0 / 0 Balance 0 / 0 500 / 500 Weight 229 lb 1 oz 227 lb 14.4 oz Microbiology Reports for the Last 24 Hours: Microbiology 09/10/24 11:45 Foot,Right Gram Stain - Final Constitutional: Present morbidly obese, chronically ill appearing and somnolent Head: Present normocephalic Eyes: Present as per HPI Neck: Present normal inspection Respiratory: Present normal respiratory effort Cardiac: Present pedal pulses present GI: Present soft Rectal (female): Present deferred (female): Present deferred Extremities: Present tenderness and edema Skin: Present erythema, warm and wounds (Right 4th- 5th inner space DFU-probes to bone.) Comment:: Per Podiatry office visit 09/10/24: right dorsal lateral foot open wound with DFU. Urvashi wound erythema and edema noted with worse malodor to lateral foot. POP to dorsal lateral skin. 1cc purulent drainage expressed. WCx taken. Dry gangrene/eschar noted circumferential around the entire foot has got smaller and is lifting up. Fibrotic slough noted. Skin cleansed. Sharp excisional full thickness debridement with 15' blade, forceps thru skin, subq into/including deep fascia, exposed lateral extensor tendon (new exposed 5th metatarsal bone) and intact eschar wound cross hatched. Some loose eschar removed. Some mild bleeding noted around borders of the wound. Post debridement: 15% black eschar, 60% yellow/brown fibrotic, 25% granular, and 17.8 x 7.6 x 3.2cm. -09/11/24; no dressing change done this morning patient scheduled for surgery this afternoon. Dressing remained intact. Neuro: Present Motor Function Intact, awake, oriented x 3, tone normal and moves all extremities; Absent Sensory Function Intact Ankle: right: erythema (2+ edema, cellulitis, swelling), right: tenderness (Neuropathy, no sensation noted to bilateral feet) and right: wound (R 4th-5th toes DFU ) and bilateral: normal inspection and bilateral: swelling (lymphedema; improving ) Feet/Toes: right: amputation (s/p 4-5th partial ray amp), right: swelling and right: wound (right dorsal lateral DFU s/p I&D, 4-5th partial ray amp) and bilateral: normal inspection, bilateral: hammer toe, bilateral: nail ab normalities (Thick, dystrophic), bilateral: onychomycosis and bilateral: tenderness (Neuropathy, no sensation noted to bilateral feet) Comments:: R 4th-5th toes DFU ~0.3x0.3x1.0cm Assessment and Plan *Assessment and plan (1) Cellulitis of right foot: Status: Acute Category: Medical Code(s): L03.115 - Cellulitis of right lower limb (2) Osteomyelitis of right foot: Status: Resolved Qualifiers: Osteomyelitis type: chronic, with draining sinus Qualified Code(s): M86.471 - Chronic osteomyelitis with draining sinus, right ankle and foot Category: Medical Code(s): M86.9 - Osteomyelitis, unspecified (3) Diabetic foot ulcer: Status: Acute Qualifiers: Diabetes mellitus type: type 2 Diabetic foot ulcer location: midfoot Laterality: right Non-pressure ulcer stage: with muscle involvement without evidence of necrosis Qualified Code(s): E11.621 - Type 2 diabetes mellitus with foot ulcer; L97.415 - Non-pressure chronic ulcer of right heel and midfoot with muscle involvement without evidence of necrosis Category: Medical Code(s): E11.621 - Type 2 diabetes mellitus with foot ulcer; L97.509 - Non-pressure chronic ulcer of other part of unspecified foot with unspecified severity (4) Diabetes mellitus with diabetic neuropathy: Status: Chronic Qualifiers: 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 mellitus 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 Diabetes mellitus type: type 2 Qualified Code(s): E11.40 - Type 2 diabetes mellitus with diabetic neuropathy, unspecified; Z79.4 - residential (current) use of insulin Category: Medical Code(s): E11.40 - Type 2 diabetes mellitus with diabetic neuropathy, unspecified (5) Obesity, Class II, BMI 35-39.9: Status: Acute Category: Medical Code(s): E66.812 - Obesity, class 2 (6) Edema of right lower leg due to peripheral venous insufficiency: Status: Acute Category: Medical Code(s): I87.2 - Venous insufficiency (chronic) (peripheral); R60.0 - Localized edema Plan Surgery, 05/15/24: S/p Right foot incision and drainage, wide excisional debridement nonviable soft tissue and bone, right partial 4-5th ray amputation Intraop Specimens: Right foot tissue culture: Enterococcus faecalis, Staphylococcus intermedius (MRS) Micro: Right foot WCx: Citrobacter koseri, Staphylococcus capitis, Enterococcus faecalis Right 4-5th toe bone culture: Staphylococcus aureus, Enterococcus faecalis (VRE) Right 4-5th metatarsal bone culture: Enterococcus faecalis Path: Right 4-5th toes: Epidermal ulceration with underlying suppuration (involv ing both digits). Spotty acute osteomyelitis. Soft tissue surgical margins appear viable but involved by acute inflammation. 4th metatarsal bone proximal margin: Benign bone and fibromuscular tissue. Negative for significant acute inflammatory infiltrate. 5th metatarsal bone proximal margin: Benign bone. Negative for significant acute inflammatory infiltrate. 06/03/24, Right foot WCx: NG bacteria, YEAST ISOLATED. LAB WILL HOLD FOR 5 DAYS. IF FURTHER TESTING IS NEEDED, CONTACT LAB. 06/10/24. Lab contacted to further test, results: Trichophyton species -IV abx: was on Vanco 1g, Ertapenem 1g daily per PCP x6wks (05/20-07/01/24) Stopped Vanco. -PICC, IV abx: complete Ertapenem 500mg daily (05/20-07/01/24) and Dapto 1g q24h x6 wks (05/27-07/08/24). -Pulled PICC 07/12/24. Completed oral fluconazole 200mg qd and Doxy 100mg BID x14d (07/11-07/26/24). Imagin06/03/24, ABIs Right PT 1.09 (188), DP 1.38 (239), TBI 1.18 (205) and Left PT 1.41(244), DP 1.20 (207), TBI 1.10 (191) Report Comments: Noncompressible. CONCLUSION: Elevated ankle-brachial indices in the bilateral lower extremities, resulting in noncompressible vessels. 07/04/24, Agram. ANGIOGRAPHIC RESULTS: Distal abdominal aorta is patent. Bilateral common internal and external iliac arteries are widely patent. Bilateral common femoral arteries patent. Bilateral SFA and profunda femoris arteries patent. Demetrio ateral popliteal arteries patent. The 3 infrageniculate vessels are proximally patent and then slowly lose contrast opacification distally suggesting microvascular disease. 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 PLAN: 1. Medical management. 2. Supportive care. 3. Xarelto 2.5 twice daily plus aspirin 81 mg daily. 09/03/24, 3v right foot xr. CLINICAL HISTORY: Foot Pain. COMPARISON: 05/15/24. FINDINGS: Right foot 3 views were obtained. There is no fracture or dislocation. There has been interval amputation of the fourth and fifth digits at the level of the proximal metatarsals. Lucency at the amputation margin of the fifth metatarsal could be postoperative or infectious. There is no gas in the soft tissues. IMPRESSION: Interval amputation of the fourth and fifth digits. Osteomyelitis is not excluded of the fifth metatarsal remnant. Recommend continued follow-up. Reviewed, Interpreted and Dictated by Clifton Rodriguez MD. Transcribed by Katlyn Hernandez. 09/05/24, CT right foot. CLINICAL HISTORY: right foot DFU, eval for Osteomyelitis 3-5th met. COMPARISON: 05/15/2024. FINDINGS: There has been interval amputation of the 4th and 5th digits to the level of the proximal metatarsals. Gas is seen in the soft tissues along the lateral midfoot near the operative site and presumed postoperative in nature. There are moderate degenerative changes of the midfoot. There is no evidence of fracture. Mild degenerative changes are seen in the hindfoot. Diffuse nonspecific edema is noted. IMPRESSION: Interval amputation of the 4th and 5th or digits to the level of the metatarsals. No definite osteomyelitis. Gas in the soft tissues along the lateral midfoot, presumed postoperative in nature. No obvious abscess. Reviewed, Interpreted and Dictated by Clifton Rodriguez MD. Transcribed by Cara Frank. 09/10/24, CT right foot. CLINICAL HISTORY: right Foot osteomyelitis, DFU. COMPARISON: 09/05/2024. FINDINGS: There is no fracture or dislocation. There is an os trigonum measuring 1 cm. There is a small plantar calcaneal spur. There are postoperative changes of prior amputation through the proximal fourth and fifth metatarsals. There is a large soft tissue defect along the lateral aspect of the foot extending to the amputated margin of the fifth metatarsal. Defect has significantly increased from prior exam. Bony erosion is seen along the inferior margin of the transected fifth metatarsal with questionable residual osteomyelitis. IMPRESSION: Interval amputation of the proximal fourth and fifth metatarsals. Worsening soft tissue ulceration and defect at the lateral foot. Erosion of the distal portion of the fifth metatarsal which may be related to residual osteomyelitis. Reviewed, Interpreted and Dictated by Manolo Grullon MD. Transcribed by Pam Ramos. Specimens: 08/27/24, Right foot WCx: Gram Stain: Few Gram Positive Bacilli, Rare Gram Positive Cocci, Few Gram Negative Rods. Tissue Culture Preliminary, 08/29/24- 48: Organism 1: Gram Negative Rods Enterobacter cloacae, Staphylococcus aureus (MRSA), Corynebacterium matruchotii 08/27/24, Right foot TCx: Enterobacter cloacae, Staphylococcus aureus (MRSA), Corynebacterium matruchotii, Enterococcus faecalis (S: Vanco, Cefepime) 09/03/24, Right foot WCx: MRSA 09/10/24, Right foot WCx: pending 09/10/24, POV #14, POD #16w, 5d -S/p Right foot incision and drainage, wide excisional debridement nonviable soft tissue and bone, right partial 4-5th ray amputation on 05/15/24. -Presents PWB in postop shoe, walker. -Right foot dsg intact. -Wound cleaned. Sharp excisional full thickness debridement. See wound note. -Some edema, erythema with worse malodor noted. Dorsal lateral foot had 1cc purulence. -New WCx taken 09/03/24 from right lateral foot. WCx from 08/27/24 reviewed, see above. New WCx taken today. -eRx Doxy 100mg, Levo 500mg x10d (08/26-09/06/24). eRx refill x10d (09/16/24). add eRx Ampicillin 500mg x10d (09/03-09/13/24). -Santyl to eschar, Betadine soaked gauze, DSD applied. -WBaT to right foot in postop shoe w/ walker or WC. -Labs, xr reviewed after ALBINO. I independently interpreted the x-rays. On the AP and MO views there is new cortical lucency noted to the base of the fourth met laterally and the fifth metatarsal at the prior amputation site when compared wi th images from 05/15/2024. Concern for osteomyelitis. Plan for CT to evaluate for osteomyelitis as it would change our treatment plan to include debridement versus further bone resection, possible transmetatarsal amputation. CT reviewed/images shown to pt. I believe there is OM to 4-5th mets. Report read as no OM. Given worsening appearance, drainage, malodor recommend patient go to ER for IV abx, admission, CT right foot, surgery for I&D, wound debridement with possible amputation and wound vac placement tomorrow. All questions answered. Pt/ verbalized understanding and agreement with tx plan. *Discussed with PCP, Dr Jones who agreed to admission w/ plan for outpatient PICC line, IV abx and HHC for 2x weekly dressing changes. Pre-op: Patient is a 64 DM female who presents with worsening right DM foot infection and suspected osteomyelitis. We discussed conservative versus surgical treatment options. Conservative treatment options include local wound care, oral and IV antibiotics, change in shoe wear, taping/padding, and off-loading. We discussed surgical intervention for transmetatarsal/tarsometatarsal joint amputation. Patient understands that there is a chance that the foot may change shape after surgery or she will need PT for gait training. Patient also understands that they could have wound healing complications including delayed healing and infection. We discussed that if the wound does not heal, it is possible that they may need a more proximal amputation and could result in further loss of digits, loss of partial foot or loss of leg. We discussed the risks and benefits in great detail. Other surgical risks include: prolonged/permanent pain and swelling, further infection requiring oral or IV antibiotics, delay in healing of soft tissue or bone, nerve or blood vessel damage, CRPS/RSD, DVT, anesthesia complications, and even . All questions answered. Patient verbalized understanding. Written consent obtained. -ER for workup - admission per PCP team -Podiatry consult -IV abx: Dapto vs Vanco + Levo -PICC with IV abx (possible Dapto 1g q24h, Levo 500mg) -HHC for 2x weekly dressing changes -NPO after midnight -Plan for surgery: 09/11/24: right foot debridement of non-viable soft tissue and bone, transmetatarsal/tarsometatarsal joint amputation, possible wound vac application 09/11/24: -Patient to remain n.p.o. until after surgery -Surgical consent was obtained this morning;09/11/24 Right foot debridement of nonviable soft tissue and bone, trans metatarsal/tarsal metatarsal joint amputation, possible wound VAC application -Patient has already obtained her pre-op EKG -Right leg marked for surgery -Patient still needs to obtain consent for PICC line -IV abx: Dapto vs Vanco + Levo -PICC with IV abx (possible Dapto 1g q24h, Levo 500mg) -[facility] for 2x weekly dressing changes -Podiatry to continue to follow while inpatient -All orders and recommendations per Dr. Smith
--- NOTE | 2024-09-11 07:33 | HMH.PHAINT1 ---
Pharmacy Intervention Comments: MEDICATION RECONCILIATION COMPLETED ON PATIENT USING EXTERNAL FILL HISTORY FROM PHARMACY AND [facility] REPORT. -[facility], [facility]
--- NOTE | 2024-09-11 08:42 | EXP.HP ---
History of Present Illness *Admission Date: 09/10/24 *Reason for visit:: osteomyelitis *History of present illness: Patient is a 64 DM female who was seen by Podaitry in the office this morning. She is well known to them and had surgery, 05/15/24: S/p Right foot incision and drainage, wide excisional debridement nonviable soft tissue and bone, right partial 4-5th ray amputation. She has been getting weekly office wound debridement. Labs, xr reviewed ordered last week. I independently interpreted the x-rays. On the AP and MO views there is new cortical lucency noted to the base of the fourth met laterally and the fifth metatarsal at the prior amputation site when compared with images from 05/15/2024. Concern for osteomyelitis. Planned for CT to evaluate for osteomyelitis as it would change our treatment plan to include debridement versus further bone resection, possible transmetatarsal amputation. CT right foot 09/05/24 reviewed/images shown to pt. I believe there is OM to 4-5th mets. Report read as no OM. Given worsening appearance, drainage, malodor recommend patient go to ER for IV abx, admission, CT right foot, surgery for I&D, wound debridement with possible amputation and wound vac placement tomorrow. All questions answered. Pt/ verbalized understanding and agreement with tx plan. *Discussed with PCP, Dr Jones who agreed to admission w/ plan for outpatient PICC line, IV abx and C for 2x weekly dressing changes. (above as per Dr. Smith) [facility] Disclaimer: The information contained in this section may have been updated after the patient was seen, as this information can be updated by other users. 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 Surgical History History of amputation of toe History of tonsillectomy and adenoidectomy History of skin graft History of lumpectomy of left breast History of cholecystectomy History of lumpectomy of left breast History of carpal tunnel surgery of left wrist Hx of cholecystectomy Family History Diabetes Coronary artery disease Hyperlipidemia Cancer Hypertension Stroke Social History Smoking Status: Never smoker alcohol intake: never substance use type: denies use current occupational status: disabled Travel in the last 8 weeks: None household members: spouse housing: house number of children: 0 current occupational exposures/hazards: No caffeine: Yes Have you lived/traveled outside [place] in past 30 days?: No Contact w/someone who lives/traveled outside US past 30 days?: No Exposure to someone with infectious disease in past 14 days?: No Do you have a fever (greater than 100.4 F or 38 C)?: No Have you tested positive for COVID-19: No Exposed to someone with COVID-19 in past 14 days?: No Do you have a sore throat?: No Do you have a cough?: No Do you have any weakness?: No Do you have any diarrhea?: No Are you experiencing any unusual bleeding?: No Do you have any muscle aches/pain?: No Do you have any abdominal pain?: No Are you experiencing loss of taste or smell?: No Other Medical History Have you received the Flu Vaccine for this season: Yes Have you received the Pneumonia Vaccine: Yes Review of Systems Constitutional Constitutional: Denies fatigue and Denies weakness Eyes Eyes: Denies blurry vision and Denies diplopia ENT Ears, Nose, Mouth, and Throat: Denies nasal congestion and Denies sore throat *Cardiovascular Cardiovascular: Denies chest pain, Denies dyspnea and Denies leg edema *Respiratory Respiratory: Denies cough and Denies dyspnea *Gastrointestinal Gastrointestinal: Denies abdominal pain, Denies loose stools, Denies nausea and Denies vomiting *Musculoskeletal Musculoskeletal: Denies arthralgias and Denies myalgias *Neurologic Neurologic: Reports paresthesias, Reports tremor(s) and Denies weakness Endocrine Endocrine: Denies fatigue Meds Home Medications and Allergies Home Medications ?Medication ?Instructions ?Recorded ?Confirmed ?Type atorvastatin 20 mg tablet 20 mg PO HS 07/05/17 09/11/24 History meloxicam 7.5 mg tablet 7.5 mg PO DAILY 07/05/17 09/11/24 History calcium 600 mg (as 1 each PO BID 10/09/18 09/11/24 History carbonate)-vitamin D3 20 mcg (800 unit) tablet aspirin 81 mg tablet,delayed 81 mg PO DAILY 05/09/19 09/11/24 History release (Jacki Low Dose Aspirin) fenofibrate nanocrystallized 145 145 mg PO DAILY 10/30/19 09/11/24 History mg tablet lisinopril 20 mg tablet 20 mg PO BID Hypertension 10/30/19 09/11/24 History metoprolol succinate 50 mg 150 mg PO DAILY 07/05/22 09/11/24 History tablet,extended release 24 hr semaglutide 7 mg tablet (Rybelsus) 7 mg PO DAILY 11/07/23 09/11/24 History insulin aspart U-100 100 unit/mL 0 unit SQ DIRECTED 02/22/24 09/11/24 History (3 mL) subcutaneous pen rivaroxaban 2.5 mg tablet (Xarelto) 2.5 mg PO BID #60 tabs 07/18/24 09/11/24 Rx duloxetine 30 mg capsule,delayed 30 mg PO DAILY #90 caps 08/09/24 09/11/24 Rx release duloxetine 60 mg capsule,delayed 60 mg PO DAILY #90 caps 08/09/24 09/11/24 Rx release fluoxetine 40 mg capsule 40 mg PO DAILY #90 caps 08/09/24 09/11/24 Rx lumateperone 42 mg capsule 42 mg PO DAILY #90 caps 08/09/24 09/11/24 Rx (Caplyta) ampicillin 500 mg capsule 500 mg PO BID 09/11/24 09/11/24 History carbidopa ER 50 mg-levodopa 200 mg 2 tab PO TID 09/11/24 09/11/24 History tablet,extended release doxycycline hyclate 100 mg capsule 100 mg PO BID 09/11/24 09/11/24 History gabapentin 300 mg capsule 300 mg PO TIDP PRN neuropathic pain 09/11/24 09/11/24 History insulin glargine 100 unit/mL 30 unit SQ BID 09/11/24 09/11/24 History subcutaneous solution levofloxacin 500 mg tablet 500 mg PO DAILY 09/11/24 09/11/24 History metformin 500 mg tablet 1,000 mg PO BID 09/11/24 09/11/24 History New Prescriptions to Start Prescriptions: Allergies Allergy/AdvReac Type Severity Reaction Status Date / Time No Known Allergies Allergy Verified 09/10/24 10:28 Exam Data for Last 24 hours Vital signs and Labs for Last 24 Hours: Temp Pulse Resp BP Pulse Ox O2 Del Method 98.2 F 69 18 139/60 98 Room Air 09/11/24 07:39 09/11/24 07:39 09/11/24 07:39 09/11/24 07:39 09/11/24 07:39 09/11/24 07:39 Laboratory Results - last 24 hr 09/10/24 12:23: WBC 11.3 H, RBC 3.93 L, Hgb 11.1 L, Hct 35.0 L, MCV 89.1, MCH 28.2, MCHC 31.7 L, RDW 14.1, Plt Count 247, MPV 11.4 H, Neut % (Auto) 71.3, Lymph % (Auto) 18.2, [place] % (Auto) 5.5, Eos % (Auto) 4.1, Baso % (Auto) 0.5, Neut # (Auto) 8.1 H, Lymph # (Auto) 2.1, [place] # (Auto) 0.6, Eos # (Auto) 0.5 H, Baso # (Auto) 0.1, Sodium 141, Potassium 4.1, Chloride 107, Carbon Dioxide 25, Anion Gap 13.1, BUN 31 H, Creatinine 0.60, Estimated Creat Clear 94, Estimated GFR 100, Est GFR ( Amer) 121, Glucose 65 L, Lactate 2.5 H, Calcium 9.6, Total Bilirubin 0.4, AST 42 H, ALT 18, Alkaline Phosphatase 41, Total Protein 7.1, Albumin 4.2, Globulin 2.9, Albumin/Globulin Ratio 1.4 09/10/24 17:48: Lactate 1.3 09/10/24 22:22: POC Glucose 78 09/11/24 05:57: POC Glucose 114 H I & O for Last 24 hours: Intake & Output 09/08/24 09/09/24 09/10/24 09/11/24 12:59 11:59 11:59 11:59 Intake Total 500 / 500 Output Total 0 / 0 Balance 500 / 500 Weight 227 lb 14.4 oz Microbiology Reports for the Last 24 Hours: Microbiology 09/10/24 11:45 Foot,Right Gram Stain - Final 09/10/24 11:45 Foot,Right Wound Culture - Preliminary Constitutional Constitutional: no acute distress *Routine HEENT Exam Head: Present normocephalic and atraumatic Eye: Present EOMI and PERRL ENT: Present mucous membranes moist *Routine Neck Exam Neck: Present supple and full ROM *Routine Respiratory Exam Respiratory: Present CTA bilaterally *Routine Cardiovascular Exam Cardiovascular: Present RRR *Routine Abdominal Exam Abdominal: Present soft and normoactive bowel sounds; Absent tenderness *Routine Rectal Exam Rectal:: deferred *Routine Genitalia Exam Genitalia:: deferred *Routine Extremities Exam Extremities: Absent cyanosis, clubbing or edema Comments: right foot with dressing in place *Routine Skin Exam Skin: Present intact; Absent erythema *Routine Neurological Exam Neurological: Present alert, oriented X3 and tremors H&P: Result Impressions Right foot CT Interval amputation of the proximal fourth and fifth metatarsals. Worsening soft tissue ulceration and defect at the lateral foot. Erosion of the distal portion of the fifthmetatarsal which may be related to residual osteomyelitis. Assessment and Plan *Assessment and plan (1) Cellulitis of right foot: Status: Acute Category: Medical Code(s): L03.115 - Cellulitis of right lower limb (2) Osteomyelitis of right foot: Status: Resolved Qualifiers: Osteomyelitis type: chronic, with draining sinus Qualified Code(s): M86.471 - Chronic osteomyelitis with draining sinus, right ankle and foot Category: Medical Code(s): M86.9 - Osteomyelitis, unspecified (3) Diabetic foot ulcer: Status: Acute Qualifiers: Diabetes mellitus type: type 2 Diabetic foot ulcer location: midfoot Laterality: right Non-pressure ulcer stage: with muscle involvement without evidence of necrosis Qualified Code(s): E11.621 - Type 2 diabetes mellitus with foot ulcer; L97.415 - Non-pressure chronic ulcer of right heel and midfoot with muscle involvement without evidence of necrosis Category: Medical Code(s): E11.621 - Type 2 diabetes mellitus with foot ulcer; L97.509 - Non-pressure chronic ulcer of other part of unspecified foot with unspecified severity (4) Diabetes mellitus with diabetic neuropathy: Status: Chronic Qualifiers: Diabetes mellitus salvage determiner insulin use: with correction use Diabetes mellitus type: type 2 Qualified Code(s): E11.40 - Type 2 diabetes mellitus with diabetic neuropathy, unspecified; 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 Category: Medical Code(s): E11.40 - Type 2 diabetes mellitus with diabetic neuropathy, unspecified (5) Obesity, Class II, BMI 35-39.9: Status: Acute Category: Medical Code(s): E66.812 - Obesity, class 2 (6) Edema of right lower leg due to peripheral venous insufficiency: Status: Acute Category: Medical Code(s): I87.2 - Venous insufficiency (chronic) (peripheral); R60.0 - Localized edema (7) Tremor: Status: Acute Category: Medical Code(s): R25.1 - Tremor, unspecified (8) Peripheral arterial disease: Status: Chronic Category: Medical Code(s): I73.9 - Peripheral vascular disease, unspecified (9) Parkinsonian syndrome: Problem Comment: Secondary parkinsonian syndrome, EPS Status: Suspected Qualifiers: 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 Qualified Code(s): 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 Smith will take the patient to the OR today for right foot debridement of non-viable soft tissue and bone, transmetatarsal/tarsometatarsal joint amputation, possible wound vac application. She has been started on IV abx. Dr. Jones entry - Saw patient, agree with above note.
--- NOTE | 2024-09-11 09:00 | XR_ITS ---
FINAL REPORT TECHNIQUE: Portable chest single view CLINICAL HISTORY: PICC line placement COMPARISON: None FINDINGS: PORTABLE CHEST: A single portable view of the chest was obtained. A PICC line is present, with its tip at the junction of the superior vena cava and right atrium. The heart size and pulmonary vascularity are within normal limits. The mediastinum is within normal limits. No acute pulmonary abnormality is identified. Mild chronic changes in the lung singh bilaterally are noted. The bony thorax is intact. IMPRESSION: PICC line tip at the junction of the superior vena cava and right atrium. Reviewed, Interpreted and Dictated by Manolo Grullon MD Transcribed by Marva Gregory Authenticated and [facility]
--- NOTE | 2024-09-11 09:07 | P.CONPHA_ITS ---
Pharmacy Consult Date: 09/11/24 Time: 09:07 Referring provider: DR. PACK Reason for Consult:: VANCOMYCIN DOSING Allergies Allergy/AdvReac Type Severity Reaction Status Date / Time No Known Allergies Allergy Verified 09/10/24 10:28 Home Medications ?Medication ?Instructions ?Recorded ?Confirmed ?Type atorvastatin 20 mg tablet 20 mg PO HS 07/05/17 09/11/24 History meloxicam 7.5 mg tablet 7.5 mg PO DAILY 07/05/17 09/11/24 History calcium 600 mg (as 1 each PO BID 10/09/18 09/11/24 History carbonate)-vitamin D3 20 mcg (800 unit) tablet aspirin 81 mg tablet,delayed 81 mg PO DAILY 05/09/19 09/11/24 History release (Jacki Low Dose Aspirin) fenofibrate nanocrystallized 145 145 mg PO DAILY 10/30/19 09/11/24 History mg tablet lisinopril 20 mg tablet 20 mg PO BID Hypertension 10/30/19 09/11/24 History metoprolol succinate 50 mg 150 mg PO DAILY 07/05/22 09/11/24 History tablet,extended release 24 hr semaglutide 7 mg tablet (Rybelsus) 7 mg PO DAILY 11/07/23 09/11/24 History insulin aspart U-100 100 unit/mL 0 unit SQ DIRECTED 02/22/24 09/11/24 History (3 mL) subcutaneous pen rivaroxaban 2.5 mg tablet (Xarelto) 2.5 mg PO BID #60 tabs 07/18/24 09/11/24 Rx duloxetine 30 mg capsule,delayed 30 mg PO DAILY #90 caps 08/09/24 09/11/24 Rx release duloxetine 60 mg capsule,delayed 60 mg PO DAILY #90 caps 08/09/24 09/11/24 Rx release fluoxetine 40 mg capsule 40 mg PO DAILY #90 caps 08/09/24 09/11/24 Rx lumateperone 42 mg capsule 42 mg PO DAILY #90 caps 08/09/24 09/11/24 Rx (Caplyta) ampicillin 500 mg capsule 500 mg PO BID 09/11/24 09/11/24 History carbidopa ER 50 mg-levodopa 200 mg 2 tab PO TID 09/11/24 09/11/24 History tablet,extended release doxycycline hyclate 100 mg capsule 100 mg PO BID 09/11/24 09/11/24 History gabapentin 300 mg capsule 300 mg PO TIDP PRN neuropathic pain 09/11/24 09/11/24 History insulin glargine 100 unit/mL 30 unit SQ BID 09/11/24 09/11/24 History subcutaneous solution levofloxacin 500 mg tablet 500 mg PO DAILY 09/11/24 09/11/24 History metformin 500 mg tablet 1,000 mg PO BID 09/11/24 09/11/24 History New Prescriptions to Start Prescriptions: Height: 1.68 m Weight: 103.374 kg Laboratory Results:: Laboratory Results - last 24 hr 09/10/24 12:23: WBC 11.3 H, RBC 3.93 L, Hgb 11.1 L, Hct 35.0 L, MCV 89.1, MCH 28.2, MCHC 31.7 L, RDW 14.1, Plt Count 247, MPV 11.4 H, Neut % (Auto) 71.3, Lymph % (Auto) 18.2, [place] % (Auto) 5.5, Eos % (Auto) 4.1, Baso % (Auto) 0.5, Neut # (Auto) 8.1 H, Lymph # (Auto) 2.1, [place] # (Auto) 0.6, Eos # (Auto) 0.5 H, Baso # (Auto) 0.1, Sodium 141, Potassium 4.1, Chloride 107, Carbon Dioxide 25, A nion Gap 13.1, BUN 31 H, Creatinine 0.60, Estimated Creat Clear 94, Estimated GFR 100, Est GFR ( Amer) 121, Glucose 65 L, Lactate 2.5 H, Calcium 9.6, Total Bilirubin 0.4, AST 42 H, ALT 18, Alkaline Phosphatase 41, Total Protein 7.1, Albumin 4.2, Globulin 2.9, Albumin/Globulin Ratio 1.4 09/10/24 17:48: Lactate 1.3 09/10/24 22:22: POC Glucose 78 09/11/24 05:57: POC Glucose 114 H Medical History: Medical History (Updated 09/10/24 @ 18:35 by Jen Smith DPM) Peripheral arterial disease Klebsiella cystitis Edema of both lower extremities Pre-ulcerative calluses Non compliance w medication regimen Depression Bilateral impacted cerumen Otitis externa of left ear Mixed hearing loss of left ear SNHL (sensorineural hearing loss) Dizziness Bilateral hearing loss Urinary tract infection Parkinson disease Osteoarthritis Diabetes mellitus, type 2 Hyperlipidemia Hypertension Breast cancer Bilateral impacted cerumen Chronic external ear infection Recurrent major depression resistant to treatment Assessment and Plan Assessment and plan all Dx Assessment and Plan for all problems:: Pharmacokinetic dosing service Objective: Patient: Floor: Age: 64 yo Serum creatinine: 0.60 mg/dL Height: 66.1 Inches Weight (kg): 103.3 Assessment: IBW (kg): 59.53 Dosing wt(kg): 103.3 Estimated Creatinine clearance (ml/min): 87.8 CRCL method: Cockcroft and Gault using ibw(default). Drug selected: Vancomycin Loading dose (mg): Vd (liters): 82.6 (factor used: 0.8 L/kg) Jared (hr-1): 0.077 Half life (hrs): 9.00 CLvanco=?? 6.360 L/hr Recommended dose: 1750 mg Interval: 12 hrs Infusion time (hrs): 2.0 Predicted peak (mcg/mL): 32.6 Predicted trough (mcg/mL): 15.09 Total body weight is being used for vancomycin dosing. Recommendations: Give Vancomycin 1750 mg q 12 hrs with an expected Cpeak of 32.6 mcg/ml and an expected Ctrough of 15.09 mcg/ml AUC 0-24 /LÁZARO Data: LÁZARO 0.5 mcg/mL:?? AUC/LÁZARO:? 1100.6 LÁZARO 1.0 mcg/mL:?? AUC/LÁZARO:? 550.3 --------- LÁZARO 1.5 mcg/mL:?? AUC/LÁZARO:? 366.9 LÁZARO 2.0 mcg/mL:?? AUC/LÁZARO:? 275.2 Thank you for the consult, will continue to follow. -[facility]ON FAM, PHARMD
[2024-09-11] MEDS: METOPROLOL SUCCINATE XL 50MG TABLET 50 MG PO (09:18)
[2024-09-11] MEDS: LISINOPRIL 20MG TABLET 20 MG PO (09:18)
[2024-09-11] MEDS: VANCOMYCIN/WATER FOR INJ (PEG) 1.75 GM/350 ML PIGGYBACK IV ×2 (09:26→23:21)
[2024-09-11 09:33] LABS: POC Glucose,Bedside 135 (70-110)
--- NOTE | 2024-09-11 09:45 | PC.NURSE ---
PT/OT REFLEX NOT ORDERED R/T SCHEDULED SURGERY TODAY.
[2024-09-11 09:59] LABS: Erythrocyte Sedimentation Rate 33 mm/hr (0-30)
[2024-09-11 11:13] LABS: C-Reactive Protein 7.1 mg/L (0-4)
--- NOTE | 2024-09-11 13:59 | P.PNANES_ITS ---
[facility] Disclaimer: The information contained in this section may have been updated after the patient was seen, as this information can be updated by other users. 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 Surgical History History of amputation of toe History of tonsillectomy and adenoidectomy History of skin graft History of lumpectomy of left breast History of cholecystectomy History of lumpectomy of left breast History of carpal tunnel surgery of left wrist Hx of cholecystectomy Family History Diabetes Coronary artery disease Hyperlipidemia Cancer Hypertension Stroke Social History Smoking Status: Never smoker alcohol intake: never substance use type: denies use current occupational status: disabled Travel in the last 8 weeks: None household members: spouse housing: house number of children: 0 current occupational exposures/hazards: No caffeine: Yes [facility] Anesthesia Checklist Patient Identification Patient Identification: Arm Band Structural Data Admitted From: Inpatient Planned Operative Procedure/s: I&D Right Foot Consent for Planned Operative Procedure(s) Verified: Yes Verified Documents: Surgical Consent and History and Physical NPO Status Verified Time NPO: 00:00 Additional verifications Anesthesia Reactions: No Hx Blood Transfusions: No Blood Transfusion Reaction: No Airway Assessment Mallampati Score:: Class II C-Spine Mobility Assessed: Yes TMJ Mobility Assessed: Yes Neurological Assessment Level of Consciousness: Awake, Alert and Appropriate Anesthesia Plan Anesthesia Risk discussed: Yes Anesthesia Plan: Verified ASA Class: III Anesthesia Type: General
--- NOTE | 2024-09-11 16:15 | EXP.ANES.I ---
[facility] Anesthesia Record Part I Anesthesia Record I Intake, IV Amount: 1,100 Hydration: Adequate Estimated blood loss (mL): 19 Urine output (mL): 0 Blood Products used (#): none Blood Pressure: 123/55 SaO2: 93 Pulse Rate: 83 Airway Patency: Patent Respiratory Rate: 20 Temperature: 97.7 F Patient is:: Drowsy Stable to PACU at:: 16:10
--- NOTE | 2024-09-11 16:29 | P.OP_ITS ---
Date of procedure: 09/11/24 Pre-op Diagnosis:: Right foot cellulitis Right DFU Right foot OM Post-op Diagnosis:: Same Procedure performed:: Right foot tarsometataral/Lisfranc disarticulation amputation (complete TMA) Derotational skin flap (adjacent soft tissue rearrangement) Application of ANGELO drain Surgeon:: Jen Smith DPM PHYSICAL FITNESS TRAINER:: Vitaly Smallwood and Manuel Yuan Anesthesia: GETA and other Estimated blood loss (mL): 20 Clinical Note:: See consult note for details. Operative findings:: Right dorsal lateral foot open wound with DFU. Urvashi wound erythema and edema noted with some odor to lateral foot. Dry gangrene/eschar noted circumferential around the entire foot. Fibrotic slough noted. Some mild bleeding noted around borders of the wound. Sharp excisional full-thickness debridement of the wounds through skin, subcu, deep fascia including tendons down to the level of the bone ~3cm deep. Fourth and fifth metatarsals were soft and crumbly. Decision made to excise the entire nonviable ulcer/wound tissue leaving a 19.5 x 9 cm soft tissue wound defect. The third metatarsal base had some cortical changes. Decision made to proceed with the transmetatarsal amputation. Since the entire fourth and fifth met bases were removed, the complete TMA/Lisfranc disarticulation amputation was performed. Some degenerative arthritic changes noted to the cuneiforms but no purulence or obvious signs of bone infection to the cuneiforms or cuboid. No further drainage or sinus tracking noted. A rotational skin flap was performed to rotate adjacent soft tissue from plantar medial to cover dorsal lateral tissue defect and from medial plantar to dorsal central/dorsal medial to cover defect at the top of the foot. The entire wound was closed. No defect left after rotational flap performed. This case took 30 mins longer than normal due to extensive soft tissue defect and flap technique to close the wound. Operative note:: On this date and time patient was deemed an appropriate surgical candidate. With informed consent signed, the patient was taken to the operating theater. The patient was positioned supine. LMA anesthesia was induced. Right mid calf tourniquet used @225mmHg. The right lower extremity was prepped and draped in normal sterile fashion. IV Dapto given on floor, IV Levo infused prior to incision. Right Lisfranc (metatarsal-cuneiform) disarticulation amputation: Attention was directed to lateral, plantar and dorsal right foot where ulceration noted. Cellulitis noted extending to the 5th met base. A fish mouth incision was mapped out to preserve any viable tissue noted at the MTPJ level dorsally and any viable tissue plantar. Previous 4-5th partial ray amputation noted. Utilizing a 15 blade dissection was carried down sharply to the level of the bone around the metatarsals. Ulcers completely excised, sent as tissue culture. See operative findings. The 4-5th met bases were soft and crumbly and had the 5th met had slight malodor to it. The 1-3rd toes were disarticulated from the metatarsals, sent for path. Initially the plan was for transmetatarsal amputation. However, on the most recent showed osteomyelitis to 4-5th met bases. There was questionable 3rd met osteo as well. Given these reasons, decision made to proceed with Lisfranc (metatarsal-cuneiform joint) disarticulation amputation. Utilizing 15' blade and forceps, the metatarsals were removed at the level of the TMT joints. The 1-4th metatarsals were sent together as bone path. The 5th metatarsal was sent as a bone culture and bone path. The cuneiforms had some cortical erosions but no obvious signs of osteomyelitis noted, this appeared more like degenerative arthritic change. Next 3 L of gentamicin irrigation was used to flush the wound in a pulse lavage. The wound was re-explored and no further signs of infection noted. Application of antibiotics, ANGELO drain: Vanco powder was inserted into the wound and against the cuneiform bones. Tourniquet deflated after 46 minutes. Immediate hyperemic response was noted to the digits. Vessels were tied or ligated with electrocautery. Right foot derotational skin flap: Due to the amount of soft tissue that was removed from the previous gangrene, DFU and open wound sites there was not enough tissue to close over the fifth ray. A longitudinal incision was then extended plantarly, see op findings. The skin and underlying subcutaneous tissue was then derotated in order to bring it from plantar to dorsal lateral in order to cover the defect left from the fifth ray amputation. A separate flap was made to rotate skin from plantar to dorsal central to cover dorsal medial wound. 7 flat ANGELO drain inserted from the lateral incision site. Sebree were used for skin closure. The wounds were cleansed. There was good soft tissue closure. Bleeding to the flap noted. No dusky skin at time of closure. No exposed bone noted or skin defect noted. Skin was cleansed. Vanco powder applied to incision. Xeroform, betadine soaked gauze followed by dry sterile dressing applied to the foot. The patient tolerated the procedure and anesthesia well, without complications. The patient was awoken from anesthesia and transferred to recovery with vital signs stable and neurovascular status intact before transfer back to floor. Materials: Skin reji, 7 flat ANGELO drain, 1g Vanco powder Plan: Transfer back to floor. DM diet. Obtain post op films, right foot, 3 views. Patient is to maintain dressing clean dry and intact. ANGELO drain mgmt. Continue IV antibiotics: Vanco or Dapto + Levo. PT eval. Discussed HHC vs SNF. Patient prefers to go home. I am ok with whichever option PT recommends and PCP agrees too. Plan for Podiatry dressing change tomorrow. Case mgmt: HHC with 2x weekly dressing changes and PICC Once IV abx arranged, patient is ok to be d/c from Podiatry stand point. HHC (or SNF orders): -PICC with IV abx (Dapto 1g q24h, Levo 500mg x3 wks) -IV abx: 09/11-10/02/24. -HHC for 2x weekly dressing changes: betadine soaked gauze, dry gauze, kerlix, noé. -ANGELO drain mgmt (plan to pull in Podiatry office next week). -Check labs weekly: cbc, cmp, esr, crp, cpk (or total CK). -Minimize activity. PWB to right heel in post op shoe with walker or wheelchair. -Plan Podiatry follow up outpatient starting next week. Tourniquet time (min): 46 Condition: stable Disposition: floor Specimens:: Right foot tissue culture Right foot 5th met bone culture Right foot 5th met bone, toes, mets 1-4 Complications:: None
[2024-09-11] MEDS: MORPHINE 2MG/ML SYRINGE 1 MG IV ×4 (16:35→16:50)
[2024-09-11] MEDS: LEVOFLOXACIN/D5W 750 MG/150 ML 750 MG/150 ML PIGGYBACK 100 MG IV (17:19)
--- NOTE | 2024-09-11 17:44 | PC.NURSE ---
Aox4 but drowsy since arrival from PACU. Appeared comfortable upon arrival to floor but began to voice discomfort. Contacted Dr. Simon for orders on pain control measures. also discussed pt fsbs result. dr simon v/o to hold ssi and metformin dose for tonight because pt has not eaten and does not want supper. dressing in place to foot with alexsander drain in place. 30 ml SS drainage emptied upon arrival to floor.
[2024-09-11] MEDS: MORPHINE 2MG/ML SYRINGE 2 MG IV ×2 (17:58→23:17)
[2024-09-11] MEDS: ONDANSETRON 4MG/2ML VIAL 4 MG IV (18:00)
[2024-09-11 18:07] LABS: POC Glucose,Bedside 130 (70-110)
[2024-09-11 18:07] LABS: POC Glucose,Bedside 178 (70-110)
--- NOTE | 2024-09-11 18:08 | P.PNANES_ITS ---
[facility] Anesthesia Record Part II Anesthesia Record Part II Discharge Time: 17:00 Destination: Medical Surgical Department PACU nurse assessment reviewed?: Yes Patient Condition:: Good Anesthesia Complications:: None Swallowing reflex intact?: Yes Airway Patency: Patent Cyanosis?: No Blood Pressure: 128/73 SaO2: 96 Respiratory Rate: 12 Pulse Rate: 80 Temperature: 97.7 F Mental Status: Alert & Oriented Pain level:: 2 Nausea and/or vomitting:: None Intake, IV Amount: 0 Hydration: Adequate
--- NOTE | 2024-09-11 18:21 | XR_ITS ---
PROCEDURE INFORMATION: Exam: XR Right Foot Exam date and time: 09/11/2024 6:29 PM Age: 64 years old Clinical indication: Pain; Ankle; Right; Additional info: S/P R tma/lisfranc disarticulation amputation TECHNIQUE: Imaging protocol: Radiologic exam of the right foot. Views: 3 or more views. Total images: 3 COMPARISON: CT FOOT RT W CON 09/10/2024 1:38 PM FINDINGS: Tubes, catheters and devices: Surgical drainage catheter in place. Bones/joints: Status post amputation of the forefoot. No acute fracture or joint dislocation. Plantar calcaneal enthesophyte. Unremarkable ankle mortise. Soft tissues: Routine postoperative changes in the soft tissues including swelling and soft tissue emphysema. Numerous skin reji. IMPRESSION: Satisfactory postop appearance of the right foot following forefoot amputation.
--- NOTE | 2024-09-11 18:39 | XR_ITS ---
PROCEDURE INFORMATION: Exam: XR Chest Exam date and time: 09/11/2024 6:36 PM Age: 64 years old Clinical indication: Device placement; Other: PT removed picc line TECHNIQUE: Imaging protocol: Radiologic exam of the chest. Views: 1 view. Total images: 1 COMPARISON: CR XR CHEST PORTABLE PICC PLAC 09/11/2024 12:38 PM FINDINGS: Tubes, catheters and devices: Interval removal of left PICC line. Lungs: Poor lung expansion with crowded markings. Similar mild accentuation of bronchovascular markings. No pulmonary vascular congestion or airspace consolidation. Pleural spaces: Unremarkable. No pleural effusion. No pneumothorax. Heart/Mediastinum: Unremarkable. No cardiomegaly. No mediastinal widening or hilar enlargement. Diaphragm: Mild elevation right hemidiaphragm. Bones/joints: Stable osseous structures. Limited bone detail. Soft tissues: Chest wall attenuation artifacts. IMPRESSION: 1. No radiographically acute cardiopulmonary process. 2. Interval removal of left PICC line.
--- NOTE | 2024-09-11 18:52 | PC.NURSE ---
late entry- 184. entered pt room to assess vital signs. observed pt picc line laying in the floor next to pt. asked pt what happened to her picc line and she stated that she ''pulled it out because i wanted to'' dr simon has since been notified of incident and chest xray and ekg have been obtained. pulses were present to affected upper extremity and cap refill was wnl.
--- NOTE | 2024-09-11 18:54 | ECG_ITS ---
APPROVED REPORT Exam: Resting ECG HR:77 bpm ECG Measurements Heart Rate 77 AXES QRSd 106 QRS -10 QT 419 T 34 QTc 451 Conclusion Sinus RHYTHM Marked artifact limits interpretation ABNORMAL ECG UNCONFIRMED REPORT Electronically signed by : Mohinder Matute MD 09/16/2024 08:54:03
[2024-09-11] MEDS: humaLOG 100 UNITS/ML 10ML VIAL (SSI) SUBCUT (22:50)
[2024-09-11] MEDS: ATORVASTATIN 20MG TABLET 20 MG PO (22:50)
[2024-09-11 23:43] LABS: POC Glucose,Bedside 192 (70-110)
[2024-09-12] VITALS (8 sets, daily range): BP systolic 112–129; BP diastolic 49–63; PULSE 70–81; RESP 16–18; TEMP 36.8–36.9; O2SAT 94–97; BMI 36.6
[2024-09-12 06:17] LABS: POC Glucose,Bedside 122 (70-110)
[2024-09-12 06:45] LABS: Basophils # 0.1 K/mm3 (0-0.2); Basophils % 0.4 % (0.1-2.0); Eosinophils % 0.1 % (0.1-12.0); Hematocrit 34.9 % (37.0-47.0); Hemoglobin 11.1 g/dL (12.2-16.2); Lymphocytes # 1.7 K/mm3 (0.7-4.5); Lymphocytes % 13.1 % (10-50); Mean Corpuscular HGB Conc 31.8 g/dL (31.8-35.4); Mean Corpuscular Hemoglobin 28.6 pg (27.0-31.2); Mean Corpuscular Volume 89.9 fl (81-99); Mean Platelet Volume 11.9 fl (7.4-10.4); Monocytes # 0.9 K/mm3 (0.1-1.0); Monocytes % 6.6 % (1.7-9.3); Neutrophils # 10.5 K/mm3 (1.8-7.8); Neutrophils % 79.4 % (37.0-80.0); Platelet Count 152 K/mm3 (142-424); Red Blood Count 3.88 M/mm3 (4.20-5.40); White Blood Count 13.2 K/mm3 (4.8-10.8)
--- NOTE | 2024-09-12 06:53 | P.PN_ITS ---
Subjective *Date: 09/12/24 *Time: 06:53 Interval history: Events of last night reviewed with nurse. Patient pulled out her PICC line after surgery. She reports some pain in her foot. Medical Exam Vital signs and Labs for Last 24 Hours: Vital Signs Temp Pulse Pulse Pulse Resp BP BP 09/12/24 04:00 80 09/12/24 03:00 09/12/24 02:25 98.5 F 74 16 113/55 L 09/12/24 01:00 09/12/24 00:00 70 09/11/24 23:45 98.1 F 76 18 136/61 09/11/24 23:00 09/11/24 22:45 74 18 125/68 09/11/24 21:45 74 18 123/63 09/11/24 21:00 09/11/24 20:45 76 18 09/11/24 20:00 09/11/24 20:00 80 09/11/24 19:45 78 18 120/53 L 09/11/24 19:15 78 18 140/77 09/11/24 19:08 70 09/11/24 19:00 09/11/24 18:45 98.9 F 78 18 140/73 09/11/24 18:15 98.6 F 81 18 134/74 09/11/24 18:10 12 09/11/24 17:45 98.3 F 79 18 132/79 09/11/24 17:30 98.1 F 79 18 125/76 09/11/24 17:15 97.9 F 77 18 110/54 L 09/11/24 17:00 97.7 F 80 18 104/50 L 09/11/24 17:00 09/11/24 17:00 80 12 128/73 09/11/24 16:50 80 12 135/89 09/11/24 16:40 80 12 117/53 L 09/11/24 16:30 93 H 14 113/56 L 09/11/24 16:20 91 H 14 115/72 09/11/24 16:17 97.7 F 83 20 123/55 L 09/11/24 16:10 97.7 F 91 H 14 107/69 L 09/11/24 13:00 09/11/24 13:00 09/11/24 11:00 09/11/24 09:00 09/11/24 08:00 09/11/24 07:39 98.2 F 69 18 09/11/24 07:00 BP Pulse Ox O2 Del Method 09/12/24 04:00 09/12/24 03:00 Room Air 09/12/24 02:25 94 L Room Air 09/12/24 01:00 Room Air 09/12/24 00:00 09/11/24 23:45 95 Room Air 09/11/24 23:00 Room Air 09/11/24 22:45 94 L Room Air 09/11/24 21:45 94 L Room Air 09/11/24 21:00 Room Air 09/11/24 20:45 94 L Room Air 09/11/24 20:00 Room Air 09/11/24 20:00 09/11/24 19:45 93 L Room Air 09/11/24 19:15 96 Room Air 09/11/24 19:08 09/11/24 19:00 Room Air 09/11/24 18:45 96 Room Air 09/11/24 18:15 95 Room Air 09/11/24 18:10 09/11/24 17:45 92 L Room Air 09/11/24 17:30 91 L Room Air 09/11/24 17:15 93 L Room Air 09/11/24 17:00 91 L Room Air 09/11/24 17:00 Room Air 09/11/24 17:00 96 Room Air 09/11/24 16:50 96 Room Air 09/11/24 16:40 96 Room Air 09/11/24 16:30 95 Room Air 09/11/24 16:20 95 Room Air 09/11/24 16:17 09/11/24 16:10 95 Room Air 09/11/24 13:00 Room Air 09/11/24 13:00 Room Air 09/11/24 11:00 Room Air 09/11/24 09:00 Room Air 09/11/24 08:00 Room Air 09/11/24 07:39 139/60 98 Room Air 09/11/24 07:00 Room Air Intake and Output 09/11/24 09/11/24 09/12/24 15:59 23:59 07:59 Intake Total 1100 / 2100 500 / 500 Output Total 30 30 Balance 2069 1070 / 2069 500 / 500 Intake: Intake, Oral Amount 0 / 0 Intake, Total IV Amount 1100 / 2100 500 / 500 Levofloxacin/D5w 750 mg/150 ml 150 / 150 750 mg In 150 ml @ 100 mls/hr IV Q24H [facility] Rx#:[id number] Vancomycin/Water For Inj (Peg) 350 / 350 1.75 gm In 350 ml @ 175 mls/hr IV Q12H [facility] Rx#:[id number] Output: Output, Urine Amount 0 / 0 0 / 0 Output, Drainage Amount Right Foot Other: Number of Unmeasured Voids 1 Weight 227 lb 14.4 oz 227 lb 14.41 oz Patient Weight 09/12/24 23:59 Weight 227 lb 14.41 oz Laboratory Results - last 24 hr 09/11/24 09:17: POC Glucose 135 H 09/11/24 09:20: ESR 33 H, C-Reactive Protein 7.1 H 09/11/24 10:42: POC Glucose 130 H 09/11/24 17:35: POC Glucose 178 H 09/11/24 22:14: POC Glucose 192 H 09/12/24 06:05: WBC 13.2 H, RBC 3.88 L, Hgb 11.1 L, Hct 34.9 L, MCV 89.9, MCH 28.6, MCHC 31.8, RDW 14.0, Plt Count 152 D, MPV 11.9 H, Neut % (Auto) 79.4, Lymph % (Auto) 13.1, Toole % (Auto) 6.6, Eos % (Auto) 0.1, Baso % (Auto) 0.4, Neut # (Auto) 10.5 H, Lymph # (Auto) 1.7, Toole # (Auto) 0.9, Eos # (Auto) 0.0, Baso # (Auto) 0.1, POC Glucose 122 H I & O for Labs for Last 24 Hours: Intake & Output 09/09/24 09/10/24 09/11/24 09/12/24 23:59 23:59 23:59 23:59 Intake Total 1600 / 2100 500 / 500 Output Total 0 / 0 30 Balance 0 / 500 1570 / 0 500 / 500 Weight 229 lb 1 oz 227 lb 14.4 oz 227 lb 14.41 oz Microbiology Reports for the Last 24 Hours: Microbiology 09/10/24 13:15 Blood Blood Culture - Preliminary NO GROWTH AFTER 24 HOURS 09/10/24 12:23 Blood Blood Culture - Preliminary NO GROWTH AFTER 24 HOURS 09/10/24 11:45 Foot,Right Gram Stain - Final 09/10/24 11:45 Foot,Right Wound Culture - Preliminary Constitutional: Present no acute distress Respiratory: Present normal respiratory effort Cardiac: Present Reg Rate and Rhythm Comment:: dressing in place over surgical wound on foot Neuro: Present Resting Tremor, Grossly Intact and moves all extremities Assessment and Plan *Assessment and plan (1) Cellulitis of right foot: Status: Acute Category: Medical Code(s): L03.115 - Cellulitis of right lower limb (2) Osteomyelitis of right foot: Status: Resolved Qualifiers: Osteomyelitis type: chronic, with draining sinus Qualified Code(s): M86.471 - Chronic osteomyelitis with draining sinus, right ankle and foot Category: Medical Code(s): M86.9 - Osteomyelitis, unspecified (3) Diabetic foot ulcer: Status: Acute Qualifiers: Diabetic foot ulcer location: midfoot Diabetes mellitus type: type 2 Laterality: right Non-pressure ulcer stage: with muscle involvement without evidence of necrosis Qualified Code(s): E11.621 - Type 2 diabetes mellitus with foot ulcer; L97.415 - Non-pressure chronic ulcer of right heel and midfoot with muscle involvement without evidence of necrosis Category: Medical Code(s): E11.621 - Type 2 diabetes mellitus with foot ulcer; L97.509 - Non-pressure chr onic ulcer of other part of unspecified foot with unspecified severity (4) Diabetes mellitus with diabetic neuropathy: Status: Chronic Qualifiers: Diabetes mellitus type: type 2 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 owner operator truck driver insulin use: with intermodal owner operator truck driver use Qualified Code(s): E11.40 - Type 2 diabetes mellitus with diabetic neuropathy, unspecified; Z79.4 - [facility] (current) use of insulin Category: Medical Code(s): E11.40 - Type 2 diabetes mellitus with diabetic neuropathy, unspecified (5) Obesity, Class II, BMI 35-39.9: Status: Acute Category: Medical Code(s): E66.812 - Obesity, class 2 (6) Edema of right lower leg due to peripheral venous insufficiency: Status: Acute Category: Medical Code(s): I87.2 - Venous insufficiency (chronic) (peripheral); R60.0 - Localized edema (7) Tremor: Status: Acute Category: Medical Code(s): R25.1 - Tremor, unspecified (8) Peripheral arterial disease: Status: Chronic Category: Medical Code(s): I73.9 - Peripheral vascular disease, unspecified (9) 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
--- NOTE | 2024-09-12 06:55 | EXP.ORTH.PN ---
Subjective *Date: 09/12/24 *Time: 08:18 Interval history: 09/12/24: Patient awake sitting up in bed eating her breakfast, denies pain at the moment. Had some pain in the night but reported that the medication she received was helpful and she was able to go to sleep. Ortho Exam (Inpt) Vital signs and Labs for Last 24 Hours: Temp Pulse Resp BP Pulse Ox O2 Del Method 98.5 F 80 16 113/55 L 94 L Room Air 09/12/24 02:25 09/12/24 04:00 09/12/24 02:25 09/12/24 02:25 09/12/24 02:25 09/12/24 03:00 Laboratory Results - last 24 hr 09/11/24 09:17: POC Glucose 135 H 09/11/24 09:20: ESR 33 H, C-Reactive Protein 7.1 H 09/11/24 10:42: POC Glucose 130 H 09/11/24 17:35: POC Glucose 178 H 09/11/24 22:14: POC Glucose 192 H 09/12/24 06:05: WBC 13.2 H, RBC 3.88 L, Hgb 11.1 L, Hct 34.9 L, MCV 89.9, MCH 28.6, MCHC 31.8, RDW 14.0, Plt Count 152 D, MPV 11.9 H, Neut % (Auto) 79.4, Lymph % (Auto) 13.1, [place] % (Auto) 6.6, Eos % (Auto) 0.1, Baso % (Auto) 0.4, Neut # (Auto) 10.5 H, Lymph # (Auto) 1.7, [place] # (Auto) 0.9, Eos # (Auto) 0.0, Baso # (Auto) 0.1, POC Glucose 122 H I & O for Labs for Last 24 Hours: Intake & Output 09/09/24 09/10/24 09/11/24 09/12/24 23:59 23:59 23:59 23:59 Intake Total 1600 / 1600 500 / 500 Output Total 0 / 0 30 / 30 Balance 0 / 0 1570 / 1570 500 / 500 Weight 229 lb 1 oz 227 lb 14.4 oz 227 lb 14.41 oz Microbiology Reports for the Last 24 Hours: Microbiology 09/10/24 13:15 Blood Blood Culture - Preliminary NO GROWTH AFTER 24 HOURS 09/10/24 12:23 Blood Blood Culture - Preliminary NO GROWTH AFTER 24 HOURS 09/10/24 11:45 Foot,Right Gram Stain - Final 09/10/24 11:45 Foot,Right Wound Culture - Preliminary Constitutional: Present morbidly obese, chronically ill appearing and somnolent Head: Present normocephalic Eyes: Present as per HPI Neck: Present normal inspection Respiratory: Present normal respiratory effort Cardiac: Present pedal pulses present GI: Present soft Rectal (female): Present deferred (female): Present deferred Extremities: Present tenderness (R foot TMA site, ANGELO drain intact, Bloody drainage in the bulb. ) and edema Skin: Present erythema, warm and wounds (Right 4th- 5th inner space DFU-probes to bone.) Comment:: 09/12/24: S/P 09/11/24- Right foot tarsometataral/Lisfranc disarticulation amputation (complete TMA) Derotational skin flap (adjacent soft tissue rearrangement) Application of ANGELO drain Neuro: Present Motor Function Intact, awake, oriented x 3, tone normal and moves all extremities; Absent Sensory Function Intact Ankle: right: erythema (2+ edema, cellulitis, swelling), right: tenderness (Neuropathy, no sensation noted to bilateral feet) and right: wound (R 4th-5th toes DFU ) and bilateral: normal inspection and bilateral: swelling (lymphedema; improving ) Feet/Toes: right: amputation (S/P 09/11/24- Right foot tarsometataral/Lisfranc disarticulation amputation (complete TMA)), right: swelling and right: wound (Right foot tarsometataral/Lisfranc disarticulation amputation (complete TMA)) and bilateral: normal inspection, bilateral: hammer toe, bilateral: nail abnormalities (Thick, dystrophic), bilateral: onychomycosis and bilateral: tenderness (Neuropathy, no sensation noted to bilateral feet) Assessment and Plan *Assessment and plan (1) Cellulitis of right foot: Status: Acute Category: Medical Code(s): L03.115 - Cellulitis of right lower limb (2) Osteomyelitis of right foot: Status: Resolved Qualifiers: Osteomyelitis type: chronic, with draining sinus Qualified Code(s): M86.471 - Chronic osteomyelitis with draining sinus, right ankle and foot Category: Medical Code(s): M86.9 - Osteomyelitis, unspecified (3) Diabetic foot ulcer: Status: Acute Qualifiers: Diabetes mellitus type: type 2 Diabetic foot ulcer location: midfoot Laterality: right Non-pressure ulcer stage: with muscle involvement without evidence of necrosis Qualified Code(s): E11.621 - Type 2 diabetes mellitus with foot ulcer; L97.415 - Non-pressure chronic ulcer of right heel and midfoot with muscle involvement without evidence of necrosis Category: Medical Code(s): E11.621 - Type 2 diabetes mellitus with foot ulcer; L97.509 - Non-pressure chronic ulcer of other part of unspecified foot with unspecified severity (4) Diabetes mellitus with diabetic neuropathy: Status: Chronic Qualifiers: 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 mellitus 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 insulin use: with 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 use Diabetes mellitus type: type 2 Qualified Code(s): E11.40 - Type 2 diabetes mellitus with diabetic neuropathy, unspecified; Z79.4 - intermediate designer (current) use of insulin Category: Medical Code(s): E11.40 - Type 2 diabetes mellitus with diabetic neuropathy, unspecified (5) Obesity, Class II, BMI 35-39.9: Status: Acute Category: Medical Code(s): E66.812 - Obesity, class 2 (6) Edema of right lower leg due to peripheral venous insufficiency: Status: Acute Category: Medical Code(s): I87.2 - Venous insufficiency (chronic) (peripheral); R60.0 - Localized edema (7) S/P transmetatarsal amputation of foot: Status: Acute Qualifiers: Laterality: right Qualified Code(s): Z89.431 - Acquired absence of right foot Category: Surgical Code(s): Z89.439 - Acquired absence of unspecified foot Plan Surgery, 05/15/24: S/p Right foot incision and drainage, wide excisional debridement nonviable soft tissue and bone, right partial 4-5th ray amputation Intraop Specimens: Right foot tissue culture: Enterococcus faecalis, Staphylococcus intermedius (MRS) Micro: Right foot WCx: Citrobacter koseri, Staphylococcus capitis, Enterococcus faecalis Right 4-5th toe bone culture: Staphylococcus aureus, Enterococcus faecalis (VRE) Right 4-5th metatarsal bone culture: Enterococcus faecalis Path: Right 4-5th toes: Epidermal ulceration with underlying suppuration (involving both digits). Spotty acute osteomyelitis. Soft tissue surgical margins appear viable but involved by acute inflammation. 4th metatarsal bone proximal margin: Benign bone and fibromuscular tissue. Negative for significant acute inflammatory infiltrate. 5th metatarsal bone proximal margin: Benign bone. Negative for significant acute inflammatory infiltrate. 06/03/24, Right foot WCx: NG bacteria, YEAST ISOLATED. LAB WILL HOLD FOR 5 DAYS. IF FURTHER TESTING IS NEEDED, CONTACT LAB. 06/10/24. Lab contacted to further test, results: Trichophyton species -IV abx: was on Vanco 1g, Ertapenem 1g daily per PCP x6wks (05/20-07/01/24) Stopped Vanco. -PICC, IV abx: complete Ertapenem 500mg daily (05/20-07/01/24) and Dapto 1g q24h x6 wks (05/27-07/08/24). -Pulled PICC 07/12/24. Completed oral fluconazole 200mg qd and Doxy 100mg BID x14d (07/11-07/26/24). Imagin06/03/24, ABIs Right PT 1.09 (188), DP 1.38 (239), TBI 1.18 (205) and Left PT 1.41(244), DP 1.20 (207), TBI 1.10 (191) Report Comments: Noncompressible. CONCLUSION: Elevated ankle-brachial indices in the bilateral lower extremities, resulting in noncompressible vessels. 07/04/24, Agram. ANGIOGRAPHIC RESULTS: Distal abdominal aorta is patent. Bilateral common internal and external iliac arteries are widely patent. Bilateral common femoral arteries patent. Bilateral SFA and profunda femoris arteries patent. Bilateral popliteal arteries patent. The 3 infrageniculate vessels are proximally patent and then slowly lose contrast opacification distally suggesting microvascular disease. 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 PLAN: 1. Medical management. 2. Supportive care. 3. Xarelto 2.5 twice daily plus aspirin 81 mg daily. 09/03/24, 3v right foot xr. CLINICAL HISTORY: Foot Pain. COMPARISON: 05/15/24. FINDINGS: Right foot 3 views were obtained. There is no fracture or dislocation. There has been interval amputation of the fourth and fifth digits at the level of the proximal metatarsals. Lucency at the amputation margin of the fifth metatarsal could be postoperative or infectious. There is no gas in the soft tissues. IMPRESSION: Interval amputation of the fourth and fifth digits. Osteomyelitis is not excluded of the fifth metatarsal remnant. Recommend continued follow-up. Reviewed, Interpreted and Dictated by Clifton Rodriguez MD. Transcribed by Katlyn Hernandez. 09/05/24, CT right foot. CLINICAL HISTORY: right foot DFU, eval for Osteomyelitis 3-5th met. COMPARISON: 05/15/2024. FINDINGS: There has been interval amputation of the 4th and 5th digits to the level of the proximal metatarsals. Gas is seen in the soft tissues along the lateral midfoot near the operative site and presumed postoperative in nature. There are moderate degenerative changes of the midfoot. There is no evidence of fracture. Mild degenerative changes are seen in the hindfoot. Diffuse nonspecific edema is noted. IMPRESSION: Interval amputation of the 4th and 5th or digits to the level of the metatarsals. No definite osteomyelitis. Gas in the soft tissues along the lateral midfoot, presumed postoperative in nature. No obvious abscess. Reviewed, Interpreted and Dictated by Clifton Rodriguez MD. Transcribed by Cara Frank. 09/10/24, CT right foot. CLINICAL HISTORY: right Foot osteomyelitis, DFU. COMPARISON: 09/05/2024. FINDINGS: There is no fracture or dislocation. There is an os trigonum measuring 1 cm. There is a small plantar calcaneal spur. There are postoperative changes of prior amputation through the proximal fourth and fifth metatarsals. There is a large soft tissue defect along the lateral aspect of the foot extending to the amputated margin of the fifth metatarsal. Defect has significantly increased from prior exam. Bony erosion is seen along the inferior margin of the transected fifth metatarsal with questionable residual osteomyelitis. IMPRESSION: Interval amputation of the proximal fourth and fifth metatarsals. Worsening soft tissue ulceration and defect at the lateral foot. Erosion of the distal portion of the fifth metatarsal which may be related to residual osteomyelitis. Reviewed, Interpreted and Dictated by Manolo Grullon MD. Transcribed by Pam Ramos. Specimens: 08/27/24, Right foot WCx: Gram Stain: Few Gram Positive Bacilli, Rare Gram Positive Cocci, Few Gram Negative Rods. Tissue Culture Preliminary, 08/29/24-0948: Organism 1: Gram Negative Rods Enterobacter cloacae, Staphylococcus aureus (MRSA), Corynebacterium matruchotii 08/27/24, Right foot TCx: Enterobacter cloacae, Staphylococcus aureus (MRSA), Corynebacterium matruchotii, Enterococcus faecalis (S: Vanco, Cefepime) 09/03/24, Right foot WCx: MRSA 09/10/24, Right foot WCx: pending 09/10/24, POV #14, POD #16w, 5d -S/p Right foot incision and drainage, wide excisional debridement nonviable soft tissue and bone, right partial 4-5th ray amputation on 05/15/24. -Presents PWB in postop shoe, walker. -Right foot dsg intact. -Wound cleaned. Sharp excisional full thickness debridement. See wound note. -Some edema, erythema with worse malodor noted. Dorsal lateral foot had 1cc purulence. -New WCx taken 09/03/24 from right lateral foot. WCx from 08/27/24 reviewed, see above. New WCx taken today. -eRx Doxy 100mg, Levo 500mg x10d (08/26-09/06/24). eRx refill x10d (09/16/24). add eRx Ampicillin 500mg x10d (09/03-09/13/24). -Santyl to eschar, Betadine soaked gauze, DSD applied. -WBaT to right foot in postop shoe w/ walker or WC. -Labs, xr reviewed after ALBINO. I independently interpreted the x-rays. On the AP and MO views there is new cortical lucency noted to the base of the fourth met laterally and the fifth metatarsal at the prior amputation site when compared with images from 05/15/2024. Concern for osteomyelitis. Plan for CT to evaluate for osteomyelitis as it would change our treatment plan to include debridement versus further bone resection, possible transmetatarsal amputation. CT reviewed/images shown to pt. I believe there is OM to 4-5th mets. Report read as no OM. Given worsening appearance, drainage, malodor recommend patient go to ER for IV abx, admission, CT right foot, surgery for I&D, wound debridement with possible amputation and wound vac placement tomorrow. All questions answered. Pt/ verbalized understanding and agreement with tx plan. *Discussed with PCP, Dr Jones who agreed to admission w/ plan for outpatient PICC line, IV abx and HHC for 2x weekly dressing changes. Pre-op: Patient is a 64 DM female who presents with worsening right DM foot infection and suspected osteomyelitis. We discussed conservative versus surgical treatment options. Conservative treatment options include local wound care, oral and IV antibiotics, change in shoe wear, taping/padding, and off-loading. We discussed surgical intervention for transmetatarsal/tarsometatarsal joint amputation. Patient understands that there is a chance that the foot may change shape after surgery or she will need PT for gait training. Patient also understands that they could have wound healing complications including delayed healing and infection. We discussed that if the wound does not heal, it is possible that they may need a more proximal amputation and could result in further loss of digits, loss of partial foot or loss of leg. We discussed the risks and benefits in great detail. Other surgical risks include: prolonged/permanent pain and swelling, further infection requiring oral or IV antibiotics, delay in healing of soft tissue or bone, nerve or blood vessel damage, CRPS/RSD, DVT, anesthesia complications, and even . All questions answered. Patient verbalized understanding. Written consent obtained. -ER for workup - admission per PCP team -Podiatry consult -IV abx: Dapto vs Vanco + Levo -PICC with IV abx (possible Dapto 1g q24h, Levo 500mg) -HHC for 2x weekly dressing changes -NPO after midnight -Plan for surgery: 09/11/24: right foot debridement of non-viable soft tissue and bone, transmetatarsal/tarsometatarsal joint amputation, possible wound vac application 09/11/24: -Patient to remain n.p.o. until after surgery -Surgical consent was obtained this morning;09/11/24 Right foot debridement of nonviable soft tissue and bone, trans metatarsal/tarsal metatarsal joint amputation, possible wound VAC application -Patient has already obtained her pre-op EKG -Right leg marked for surgery -Patient still needs to obtain consent for PICC line -IV abx: Dapto vs Vanco + Levo -PICC with IV abx (possible Dapto 1g q24h, Levo 500mg) -HHC for 2x weekly dressing changes -Podiatry to continue to follow while inpatient -All orders and recommendations per Dr. Smith 09/12/24: Post- Op Day #1 S/P 09/11/24- Right foot tarsometataral/Lisfranc disarticulation amputation (complete TMA) Derotational skin flap (adjacent soft tissue rearrangement) Application of ANGELO drain Patient is to maintain dressing clean dry and intact. ANGELO drain mgmt. Continue IV antibiotics: Vanco or Dapto + Levo. PT eval. Discussed HHC vs SNF. Patient prefers to go home. I am ok with whichever option PT recommends and PCP agrees too. Podiatry dressing change:Xeroform, betadine soaked gauze followed by dry sterile dressing applied to the foot. Case mgmt: HHC with 2x weekly dressing changes and PICC Once IV abx arranged, patient is ok to be d/c from Podiatry stand point. All orders and recommendations per Dr. Smith Specimens:: Pending Right foot tissue culture Right foot 5th met bone culture Right foot 5th met bone, toes, mets 1-4 HHC (or SNF orders): -PICC with IV abx (Dapto 1g q24h, Levo 500mg x3 wks) -IV abx: 09/11-10/02/24. -HHC for 2x weekly dressing changes: betadine soaked gauze, dry gauze, kerlix, noé. -ANGELO drain mgmt (plan to pull in Podiatry office next week). -Check labs weekly: cbc, cmp, esr, crp, cpk (or total CK). -Minimize activity. PWB to right heel in post op shoe with walker or wheelchair. -Plan Podiatry follow up outpatient starting next week.
[2024-09-12] MEDS: MORPHINE 2MG/ML SYRINGE 2 MG IV (07:01)
[2024-09-12] MEDS: ONDANSETRON 4MG/2ML VIAL 4 MG IV (07:07)
[2024-09-12 07:29] LABS: Anion Gap 14.3 mEq/L (5-15); Blood Urea Nitrogen 23 mg/dl (7-17); Calcium 8.5 mg/dl (8.4-10.2); Carbon Dioxide 21 mmol/L (22.0-30.0); Chloride 106 mmol/L (98-107); Creatinine Clearance Estimated 92 mL/min (50-200); Estimated Glomerular Filt Rate 100 ml/min (>60); GFR (African American) 121 ML/MIN (>60); Glucose 115 mg/dl (74-100); Potassium 4.3 mmoL/L (3.5-5.1); Sodium 137 mmol/L (136-145)
--- NOTE | 2024-09-12 07:54 | PC.NURSE ---
Pt. is alert and orientated x 4. Pt. is on room air. Pt. post op right foot I and D, partial amputation right foot. Pt. initially not cooperative with care, refused to answer questions. Pt. had PICC line placed after surgery and pulled it out. she also pulled her PIV. Pt. c/o pain to right foot. after explaining she needed to have a PIV replaced to get pajn meds and IV antibiotics she agreed to let us reinsert a PIV. Pt. more cooperative after pain meds. Pt. slept well overnight. Pt. c/o nausea this am and was not sure she wanted to eat breakfast. medicated for pain and nausea at change of shift. VSS. personal items and call brian in reach.
[2024-09-12] MEDS: LISINOPRIL 20MG TABLET 20 MG PO (08:41)
[2024-09-12] MEDS: METOPROLOL SUCCINATE XL 50MG TABLET 50 MG PO (08:41)
[2024-09-12] MEDS: VANCOMYCIN/WATER FOR INJ (PEG) 1.75 GM/350 ML PIGGYBACK IV (08:41)
--- NOTE | 2024-09-12 10:21 | SW/DCPLANNER ---
Addendum entered by Mary Antonio 09/13/24 13:31: Bio script came today and showed patients how to administer the medicine. Patients felt very comfortable and done a great job. I have contacted [facility] for they can resume services and told them that the patients iv medicine will need to be given tomorrow. Tesfaye Anderson Addendum entered by Mary Antonio 09/12/24 13:03: Spoke with Natalia at [facility] and they are able to resume care once she is racheal for D/C. I told Natalia that i will let them know when she is D/C. Spoke with Joan from [facility] and the patient's medicare doesnt cover her medicine and the patient has she has not met her deductible. Joan seems to think once some medical bills come in she will reach he deductible as of now the patient will have to pay$1692.00 for the first visit but they can take payment. I will let [facility] know once patient D/C. Tesfaye Anderson Original Note: Spoke with patient and her about having home health services and bio script coming in to show how to give patients medicine through her picc line. Patients stated that he doesnt feel comfortable doing the dressing changes on the foot but he believes he will be alright on giving the medicine through the picc. Patient stated that she is already established with [facility]. I faxed patients information to [facility] and bio script once i hear back from them i kumar update the patient and the note. Tesfaye Anderson
--- NOTE | 2024-09-12 11:07 | HMH.PTEV ---
Physical Therapy Evaluation Rehab PT IP Evaluation Start: 09/11/24 16:27 Freq: ONCE Status: Active Protocol: Document 09/12/24 10:58 LUIS (Rec: 09/12/24 11:07 PHOMICHEAL [id number]) Subjective/History History History 64 DM female who was seen by Podaitry in the office this morning. She is well known to them and had surgery, 05/15/24 : S/p Right foot incision and drainage, wide excisional debridement nonviable soft tissue and bone, right partial 4-5th ray amputation. She has been getting weekly office wound debridement. Labs, xr reviewed ordered last week. I independently interpreted the x-rays. On the AP and MO views there is new cortical lucency noted to the base of the fourth met laterally and the fifth metatarsal at the prior amputation site when compared with images from 05/15/2024. Concern for osteomyelitis. Planned for CT to evaluate for osteomyelitis as it would change our treatment plan to include debridement versus further bone resection, possible transmetatarsal amputation. CT right foot reviewed/images shown to pt . I believe there is OM to 4- 5th mets. Report read as no OM . Given worsening appearance, drainage, malodor recommend patient go to ER for IV abx, admission, CT right foot, surgery for I&D, wound debridement with possible amputation and wound vac placement tomorrow. All questions answered. Pt/ verbalized understanding and agreement with tx plan. * Discussed with PCP, Dr Jones who agreed to admission w/ plan for outpatient PICC line, IV abx and [facility] for 2x weekly dressing changes. Now S/P R TMA surgery. Bulb drain in place this am. Pt reports she lives , ramp to enter the home, has RW, BSC, and w/c at home already. Prior to surgery she was independent with all mobility using the RW in the home. Subjective Subjective Pt reports sharp, shooting pains in the R foot, 02/09 this am. She does agree to mobility assessment. [facility] How much help from another person do you currently need... Turning from your back to your side None while in a flat bed without using bedrails? Moving from lying on back to sitting on None the side of a flat bed without using bedrails? Moving to and from a bed to a chair ( A little including a wheelchair)? Standing up from a chair using your arms A little ? (e.g., wheelchair, bedside chair) Walking in hospital room? A little Climbing 3-5 steps with a railing? A lot Mobility Score 19 Mobility Level [facility] Mobility Calculator Mobility 6 Walk 10 steps or more Rehab PT IP Eval Objective Appearance Patient Behavior Appropriate Patient Orientation Person,Place,Time Difficulty following instructions none Speech Pattern Clear Ambulation Patient Able to Ambulate Yes Ambulation Observation IP General Gait Pattern Observation Antalgic Gait,Shuffling Step, Decrease Weight Bear (R), Decrease Stride Lngth (R), Decrease Stride Lngth (L) Ambulation Distance (feet) 5 Ambulation Assistive Device Rolling Walker Ambulation Ability Minimal x 1 (25% assist) Balance Ability to Arise Able, uses arms to help Sitting Balance Steady, safe Standing Balance Unsteady Dynamic Sitting Balance Ability Good Dynamic Standing Balance Ability Fair Transfers Bed Transfer Ability Contact Guard/Hand Hold Chair Transfer Ability Minimal x 1 (25% assist) Sit to Stand Bed Transfer Ability Minimal x 1 (25% assist) Sit to Stand Chair Transfer Ability Minimal x 1 (25% assist) Rehab PT IP prob,goals,plan Problems Date of Evaluation: 09/12/24 PT IP Problems Bed Mobility,Transfers,Gait Rehab Potential Rehab Potential Good Plan PT Intervention Plan Bed Mobility,Transfers,Gait, Therapeutic Exercise PT Plan Frequency Daily Duration LOS Discharge Goals Bed Transfer Ability Supervision/Stand by Sit to Stand Chair Transfer Ability Contact Guard/Hand Hold Ambulation Assistive Device Rolling Walker Ambulation Distance (feet) 10 Discharge Plan PT Discharge Plan Pt is currently most appropriate for rehab placement once medically stable for d/c. However, it appears she prefers to return home with her to assist her. She has needed equipment and understands her PWB status of the R LE per her report. There is concern that she will be unlikely to maintain appropriate WB independently at all times. Skilled inpatient acute therapy services are indicated to improve all transfers and mobility in order to return pt to [facility] as able. Eval Complexity Eval Charge Codes 31826 - High Complexity PHYSICIAN CERTIFICATION: I certify the specified therapy services for Emiliana Painter are required, authorized, and reviewed every 30 days.
[2024-09-12 12:20] LABS: POC Glucose,Bedside 162 (70-110)
[2024-09-12] MEDS: humaLOG 100 UNITS/ML 10ML VIAL (SSI) SUBCUT ×3 (12:24→23:52)
[2024-09-12] MEDS: CARBIDOPA/LEVODOPA CR 50/200MG TABLET 2 EACH PO ×2 (13:59→20:37)
[2024-09-12] MEDS: DAPTOmycin 1,000 MG in 0.9 % SODIUM CHLORIDE 50 ML 100 MG IV (13:59)
[2024-09-12] MEDS: LEVOFLOXACIN/D5W 750 MG/150 ML 750 MG/150 ML PIGGYBACK 100 MG IV (15:34)
--- NOTE | 2024-09-12 16:05 | PC.NURSE ---
patient is a/o x4 and remains on RA, tolerating well. ANGELO drain in place. has only c/o sharp pains every now and then but has denied wanting pain medication at this time. patient has been up to the BSC and chair. educated patient on incentive spirometer, patient demonstrated understanding. family has been at bedside for most of the shift. patient is starting to tolerate more of her diet, no c/o nausea/vomiting. ACHS treated per AUG. no further requests at this time.
[2024-09-12] MEDS: METFORMIN 500MG TABLET 1000 MG PO (16:51)
[2024-09-12 17:00] LABS: POC Glucose,Bedside 233 (70-110)
[2024-09-12] MEDS: RIVAROXABAN 2.5MG TABLET 2.5 MG PO (20:37)
[2024-09-12] MEDS: ATORVASTATIN 20MG TABLET 20 MG PO (20:37)
[2024-09-12 21:09] LABS: POC Glucose,Bedside 215 (70-110)
[2024-09-13] VITALS: BP 167/79; PULSE 80; PULSE 81; RESP 18; TEMP 36.7; O2SAT 96
[2024-09-13 00:02] LABS: POC Glucose,Bedside 175 (70-110)
[2024-09-13 03:31] VITALS: BP 159/73; PULSE 82; RESP 16; TEMP 36.9; O2SAT 94
[2024-09-13 03:52] VITALS: BMI 36.8
[2024-09-13 04:00] VITALS: PULSE 80
--- NOTE | 2024-09-13 04:42 | PC.NURSE ---
Pt is A&Ox4. Pt noé bandage remains in place and is clean and dry, Pt has had a total of 30 ml of output from ANGELO drain this shift. Pt has not c/o pain this shift, and has rested well. Pt has tolerating antibiotic therapy well this shift. Pt has had no acute changes this shift and denies needs at this time. Pt alarm is set and active.
[2024-09-13] MEDS: humaLOG 100 UNITS/ML 10ML VIAL (SSI) SUBCUT ×3 (04:59→16:56)
[2024-09-13 05:10] LABS: POC Glucose,Bedside 170 (70-110)
[2024-09-13] MEDS: METFORMIN 500MG TABLET 1000 MG PO (06:42)
[2024-09-13 08:00] VITALS: BP 155/70; PULSE 100; PULSE 95; RESP 20; TEMP 36.7; O2SAT 95
[2024-09-13] MEDS: LISINOPRIL 20MG TABLET 20 MG PO (08:46)
[2024-09-13] MEDS: DULOXETINE 30MG CAPSULE.DR 90 MG PO (08:47)
[2024-09-13] MEDS: FLUOXETINE 20MG CAPSULE 40 MG PO (08:47)
[2024-09-13] MEDS: METOPROLOL SUCCINATE XL 50MG TABLET 50 MG PO (08:47)
[2024-09-13] MEDS: CARBIDOPA/LEVODOPA CR 50/200MG TABLET 2 EACH PO ×2 (08:47→12:18)
[2024-09-13] MEDS: RIVAROXABAN 2.5MG TABLET 2.5 MG PO (08:47)
--- NOTE | 2024-09-13 09:01 | XR_ITS ---
FINAL REPORT CLINICAL HISTORY: Confirm PICC line placement COMPARISON: 09/11/2024 FINDINGS: The heart size is normal. Right-sided PICC line is present with the tip in the SVC. The lungs are underinflated. There is mild basilar scarring. There is no focal infiltrate or edema. There are no pleural effusions. There is no pneumothorax. There is no osseous abnormality. IMPRESSION: Right-sided PICC line tip in the SVC. Reviewed, Interpreted and Dictated by Manolo Grullon MD Transcribed by Cara Frank Authenticated and [facility]
--- NOTE | 2024-09-13 10:47 | P.PN_ITS ---
Subjective *Date: 09/13/24 *Time: 16:27 Interval history: Patient is feeling better this am. She is wanting to get up to the bedside commode. She denies pain in her foot but is having pain in her buttocks from sitting so long. She has been up in the chair since 5am. She is eating and r esting well. Medical Exam Vital signs and Labs for Last 24 Hours: Vital Signs Temp Pulse Pulse Resp BP Pulse Ox O2 Del Method 09/13/24 09:00 Room Air 09/13/24 08:00 Room Air 09/13/24 08:00 98.1 F 95 H 20 155/70 H 95 Room Air 09/13/24 06:46 Room Air 09/13/24 05:00 Room Air 09/13/24 04:00 80 09/13/24 03:31 98.5 F 82 16 159/73 H 94 L Room Air 09/13/24 03:00 Room Air 09/13/24 01:00 Room Air 09/13/24 00:00 98.1 F 81 18 167/79 H 96 Room Air 09/13/24 00:00 80 09/12/24 23:00 Room Air 09/12/24 21:00 Room Air 09/12/24 20:00 Room Air 09/12/24 20:00 80 09/12/24 20:00 98.2 F 80 18 127/63 96 Room Air 09/12/24 18:32 Room Air 09/12/24 17:00 Room Air 09/12/24 16:00 80 09/12/24 15:45 98.4 F 81 18 120/55 L 94 L Room Air 09/12/24 15:00 Room Air 09/12/24 13:00 Room Air 09/12/24 12:00 80 09/12/24 12:00 98.3 F 77 18 129/60 97 Room Air 09/12/24 11:00 Room Air Intake and Output 09/12/24 09/13/24 09/13/24 19:59 03:59 11:59 Intake Total 1190 / 1830 240 / 1830 400 / 1830 Output Total 45 / 45 0 / 45 Balance 1145 / 1785 240 / 1785 400 / 1785 Intake: Intake, Oral Amount 840 / 1480 240 / 1480 400 / 1480 Intake, Total IV Amount 350 / 350 Vancomycin/Water For Inj (Peg) 350 / 350 1.75 gm In 350 ml @ 175 mls/hr IV Q12H [facility] Rx#:[id number] Output: Output, Urine Amount 0 / 0 0 / 0 Output, Drainage Amount 45 / 45 Right Foot 45 / 45 Other: Number of Unmeasured Voids 1 1 Weight 229 lb 6.4 oz Patient Weight 09/13/24 11:59 Weight 229 lb 6.4 oz Laboratory Results - last 24 hr 09/12/24 11:05: POC Glucose 162 H 09/12/24 16:53: POC Glucose 233 H 09/12/24 20:35: POC Glucose 215 H 09/12/24 23:51: POC Glucose 175 H 09/13/24 04:53: POC Glucose 170 H I & O for Labs for Last 24 Hours: Intake & Output 09/10/24 09/11/24 09/12/24 09/13/24 11:59 11:59 11:59 11:59 Intake Total 500 / 500 1840 / 1840 1830 / 1830 Output Total 0 / 0 80 / 80 45 / 45 Balance 500 / 500 1760 / 1760 1785 / 1785 Weight 227 lb 14.4 oz 227 lb 14.41 oz 229 lb 6.4 oz Microbiology Reports for the Last 24 Hours: Microbiology 09/10/24 11:45 Foot,Right Gram Stain - Final 09/10/24 11:45 Foot,Right Wound Culture - Preliminary Gram Positive Cocci 09/10/24 13:15 Blood Blood Culture - Preliminary NO GROWTH AFTER 48 HOURS 09/10/24 12:23 Blood Blood Culture - Preliminary NO GROWTH AFTER 48 HOURS Constitutional: Present no acute distress Respiratory: Present CTA bilaterally Cardiac: Present Reg Rate and Rhythm GI: Present soft; Absent distention or tenderness Extremities: Present edema Comment:: right foot with dressing in place Skin: Present intact Neuro: Present Resting Tremor, alert and awake Assessment and Plan *Assessment and plan (1) Cellulitis of right foot: Status: Acute Category: Medical Code(s): L03.115 - Cellulitis of right lower limb (2) Osteomyelitis of right foot: Status: Resolved Qualifiers: Osteomyelitis type: chronic, with draining sinus Qualified Code(s): M86.471 - Chronic osteomyelitis with draining sinus, right ankle and foot Category: Medical Code(s): M86.9 - Osteomyelitis, unspecified (3) Diabetic foot ulcer: Status: Acute Qualifiers: Diabetes mellitus type: type 2 Diabetic foot ulcer location: midfoot Laterality: right Non-pressure ulcer stage: with muscle involvement without evidence of necrosis Qualified Code(s): E11.621 - Type 2 diabetes mellitus with foot ulcer; L97.415 - Non-pressure chronic ulcer of right heel and midfoot with muscle involvement without evidence of necrosis Category: Medical Code(s): E11.621 - Type 2 diabetes mellitus with foot ulcer; L97.509 - Non-pressure chronic ulcer of other part of unspecified foot with unspecified severity (4) Diabetes mellitus with diabetic neuropathy: Status: Chronic Qualifiers: Diabetes mellitus long term care administrator insulin use: with long term care administrator use Diabetes mellitus type: type 2 Qualified Code(s): E11.40 - Type 2 diabetes mellitus with diabetic neuropathy, unspecified; Z79.4 - bed bug exterminator (current) use of insulin Category: Medical Code(s): E11.40 - Type 2 diabetes mellitus with diabetic neuropathy, unspecified (5) Obesity, Class II, BMI 35-39.9: Status: Acute Category: Medical Code(s): E66.812 - Obesity, class 2 (6) Edema of right lower leg due to peripheral venous insufficiency: Status: Acute Category: Medical Code(s): I87.2 - Venous insufficiency (chronic) (peripheral); R60.0 - Localized edema (7) Tremor: Status: Acute Category: Medical Code(s): R25.1 - Tremor, unspecified (8) Peripheral arterial disease: Status: Chronic Category: Medical Code(s): I73.9 - Peripheral vascular disease, unspecified (9) 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 Podiatry to follow. Will likely need PICC line replaced. Dr. Jones entry - Saw patient, agree with above note. OK for discharge to home health care, IV Levaquin and Dapto. F/U with podiatry next week.
[2024-09-13 11:34] LABS: POC Glucose,Bedside 217 (70-110)
[2024-09-13 12:00] VITALS: BP 158/63; PULSE 90; PULSE 92; RESP 17; TEMP 37.2; O2SAT 96
[2024-09-13] MEDS: DAPTOmycin 1,000 MG in 0.9 % SODIUM CHLORIDE 50 ML 100 MG IV (15:26)
--- NOTE | 2024-09-13 15:39 | PC.NURSE ---
notified of PICC line placement
[2024-09-13] MEDS: LEVOFLOXACIN/D5W 750 MG/150 ML 750 MG/150 ML PIGGYBACK 100 MG IV (16:06)
[2024-09-13 16:20] LABS: POC Glucose,Bedside 229 (70-110)
--- NOTE | 2024-09-22 21:21 | EXP.DC.SUM ---
General Admission date:: 09/10/24 Discharge date: 09/14/24 HPI HPI HPI: Patient is a 64 DM female who was seen by Podaitry in the office this morning. She is well known to them and had surgery, 05/15/24: S/p Right foot incision and drainage, wide excisional debridement nonviable soft tissue and bone, right partial 4-5th ray amputation. She has been getting weekly office wound debridement. Labs, xr reviewed ordered last week. I independently interpreted the x-rays. On the AP and MO views there is new cortical lucency noted to the base of the fourth met laterally and the fifth metatarsal at the prior amputation site when compared with images from 05/15/2024. Concern for osteomyelitis. Planned for CT to evaluate for osteomyelitis as it would change our treatment plan to include debridement versus further bone resection, possible transmetatarsal amputation. CT right foot 09/05/24 reviewed/images shown to pt. I believe there is OM to 4-5th mets. Report read as no OM. Given worsening appearance, drainage, malodor recommend patient go to ER for IV abx, admission, CT right foot, surgery for I&D, wound debridement with possible amputation and wound vac placement tomorrow. All questions answered. Pt/ verbalized understanding and agreement with tx plan. *Discussed with PCP, Dr Jones who agreed to admission w/ plan for outpatient PICC line, IV abx and [facility] for 2x weekly dressing changes. (above as per Dr. Smith) Hospital Course Hospital Course Hospital Course: The patient was admitted for IV antibiotics and was taken to the OR by Dr. Smith on 09/11/2024. She had a right foot tarsometatarsal/Lisfranc disarticulation amputation, derotational skin flap, and application of a ANGELO drain. Dr. Smith discussed halfway facility versus home health and the patient wanted to go home with home health. A PICC line was placed for continued IV antibiotics. She was to have daptomycin 1 g every 24 hours and Levaquin 500 mg daily x 3 weeks and home health care for twice a week dressing changes. She was to minimize activity and be partial weightbearing to the right heel in a postop shoe with a walker or wheelchair and podiatry will follow-up with her after discharge. She did pull out her PICC line and had to be replaced for continued home IV antibiotics. She was stable to be discharged home and will have home health and follow-up with podiatry. Exam Data for Last 24 hours Vital signs and Labs for Last 24 Hours: Temp Pulse Resp BP Pulse Ox O2 Del Method 99.0 F 92 H 17 158/63 H 96 Room Air 09/13/24 12:00 09/13/24 12:00 09/13/24 12:00 09/13/24 12:00 09/13/24 12:00 09/13/24 16:29 Narrative: Constitutional Constitutional: no acute distress *Routine HEENT Exam Head: Present normocephalic and atraumatic Eye: Present EOMI and PERRL ENT: Present mucous membranes moist *Routine Neck Exam Neck: Present supple and full ROM *Routine Respiratory Exam Respiratory: Present CTA bilaterally *Routine Cardiovascular Exam Cardiovascular: Present RRR *Routine Abdominal Exam Abdominal: Present soft and normoactive bowel sounds; Absent tenderness *Routine Rectal Exam Rectal:: deferred *Routine Genitalia Exam Genitalia:: deferred *Routine Extremities Exam Extremities: Absent cyanosis, clubbing or edema Comments: right foot with dressing in place *Routine Skin Exam Skin: Present intact; Absent erythema *Routine Neurological Exam Neurological: Present alert, oriented X3 and tremors DS: Diagnosis Discharge Diagnosis (1) Cellulitis of right foot: Status: Acute Code(s): L03.115 - Cellulitis of right lower limb (2) Osteomyelitis of right foot: Status: Chronic Code(s): M86.9 - Osteomyelitis, unspecified Qualifiers: Osteomyelitis type: chronic, with draining sinus Qualified Code(s): M86.471 - Chronic osteomyelitis with draining sinus, right ankle and foot (3) Diabetic foot ulcer: Status: Resolved Code(s): E11.621 - Type 2 diabetes mellitus with foot ulcer; L97.509 - Non-pressure chronic ulcer of other part of unspecified foot with unspecified severity Qualifiers: Diabetic foot ulcer location: midfoot Diabetes mellitus type: type 2 Laterality: right Non-pressure ulcer stage: with muscle involvement without evidence of necrosis Qualified Code(s): E11.621 - Type 2 diabetes mellitus with foot ulcer; L97.415 - Non-pressure chronic ulcer of right heel and midfoot with muscle involvement without evidence of necrosis (4) Diabetes mellitus with diabetic neuropathy: Status: Chronic Code(s): E11.40 - Type 2 diabetes mellitus with diabetic neuropathy, unspecified Qualifiers: Diabetes mellitus type: type 2 Diabetes mellitus buttermaker helper insulin use: with buttermaker helper use Qualified Code(s): E11.40 - Type 2 diabetes mellitus with diabetic neuropathy, unspecified; Z79.4 - watermelon inspector (current) use of insulin (5) Obesity, Class II, BMI 35-39.9: Status: Acute Code(s): E66.812 - Obesity, class 2 (6) Edema of right lower leg due to peripheral venous insufficiency: Status: Acute Code(s): I87.2 - Venous insufficiency (chronic) (peripheral); R60.0 - Localized edema (7) Tremor: Status: Acute Code(s): R25.1 - Tremor, unspecified (8) Peripheral arterial disease: Status: Chronic Code(s): I73.9 - Peripheral vascular disease, unspecified (9) Parkinsonian syndrome: Status: Suspected Code(s): G20.C - Parkinsonism, unspecified Qualifiers: 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 Qualified Code(s): 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, EPS (10) Recurrent major depression resistant to treatment: Status: Chronic Code(s): F33.9 - Major depressive disorder, recurrent, unspecified Problem details: Currently on second-generation antipsychotic Meds Home Medications and Allergies Home Medications ?Medication ?Instructions ?Recorded ?Confirmed ?Type atorvastatin 20 mg tablet 20 mg PO HS 07/05/17 09/17/24 History meloxicam 7.5 mg tablet 7.5 mg PO DAILY 07/05/17 09/17/24 History calcium 600 mg (as 1 each PO BID 10/09/18 09/17/24 History carbonate)-vitamin D3 20 mcg (800 unit) tablet aspirin 81 mg tablet,delayed 81 mg PO DAILY 05/09/19 09/17/24 History release (Jacki Low Dose Aspirin) fenofibrate nanocrystallized 145 145 mg PO DAILY 10/30/19 09/17/24 History mg tablet lisinopril 20 mg tablet 20 mg PO BID Hypertension 10/30/19 09/17/24 History metoprolol succinate 50 mg 150 mg PO DAILY 07/05/22 09/17/24 History tablet,extended release 24 hr semaglutide 7 mg tablet (Rybelsus) 7 mg PO DAILY 11/07/23 09/17/24 History insulin aspart U-100 100 unit/mL 0 unit SQ DIRECTED 02/22/24 09/17/24 History (3 mL) subcutaneous pen rivaroxaban 2.5 mg tablet (Xarelto) 2.5 mg PO BID #60 tabs 07/18/24 09/17/24 Rx duloxetine 30 mg capsule,delayed 30 mg PO DAILY #90 caps 08/09/24 09/17/24 Rx release duloxetine 60 mg capsule,delayed 60 mg PO DAILY #90 caps 08/09/24 09/17/24 Rx release fluoxetine 40 mg capsule 40 mg PO DAILY #90 caps 08/09/24 09/17/24 Rx lumateperone 42 mg capsule 42 mg PO DAILY #90 caps 08/09/24 09/17/24 Rx (Caplyta) carbidopa ER 50 mg-levodopa 200 mg 2 tab PO TID 09/11/24 09/17/24 History tablet,extended release gabapentin 300 mg capsule 300 mg PO TIDP PRN neuropathic pain 09/11/24 09/17/24 History insulin glargine 100 unit/mL 30 unit SQ BID 09/11/24 09/17/24 History subcutaneous solution metformin 500 mg tablet 1,000 mg PO BID 09/11/24 09/17/24 History DAPTOmycin [Cubicin 500mg vial] 100 mls/hr IV Q24H Infection 09/13/24 09/17/24 Rx 1,000 mg levofloxacin 500 mg/100 mL in 5 % 500 mg IV Q24H 09/13/24 09/17/24 Rx dextrose intravenous piggyback tramadol 50 mg tablet 50 mg PO Q8H PRN pain #20 tabs 09/13/24 09/17/24 Rx New Prescriptions to Start Prescriptions: tramadol Ricky Jones DAPTOmycin [Cubicin 500mg vial] 1,000 mg 100 mls/hr IV Q24H Allergies Allergy/AdvReac Type Severity Reaction Status Date / Time No Known Allergies Allergy Verified 09/17/24 10:31 Discharge Plan Disposition Patient Disposition: Home Health Service Condition: Fair Discharge Order Discharge Orders: Discharge Order (Routine); Ordered 09/13/24 Ordered By: Ricky Jones Follow up Plan Follow up with: Ricky Jones MD [Primary Care Provider] - 09/26/24 9:15 am Jen Smith DPM [Staff Physician] - 1 week (please call the office for hospital follow up. ) Prescriptions/Medication Reconciliation: New DAPTOmycin [Cubicin 500mg vial] 1000 MG 0.9 % Sodium Chloride [Sod Chlor 0.9% 50mL bag] 50 ML 100 mls/hr IV Q24H Reason for use: Infection Ordered By: Ricky Jones MD Last Taken: 09/13/24 15:26 100 mls/hr levofloxacin in D5W 500 mg/100 mL piggyback 500 mg IV Q24H tramadol 50 mg tablet 50 mg PO Q8H PRN (Reason: pain) Qty: 20 0RF Continued aspirin [Jacki Low Dose Aspirin] 81 mg tablet,delayed release (DR/EC) 81 mg PO DAILY duloxetine 60 mg capsule,delayed release(DR/EC) 60 mg PO DAILY Qty: 90 1RF duloxetine 30 mg capsule,delayed release(DR/EC) 30 mg PO DAILY Qty: 90 0RF fluoxetine 40 mg capsule 40 mg PO DAILY Qty: 90 1RF Caplyta 42 mg capsule 42 mg PO DAILY Qty: 90 0RF fenofibrate nanocrystallized 145 mg tablet 145 mg PO DAILY Xarelto 2.5 mg tablet 2.5 mg PO BID Qty: 60 2RF calcium carbonate-vitamin D3 1 EACH tablet 1 each PO BID insulin glargine 100 unit/mL solution 30 unit SQ BID metformin 500 mg tablet 1,000 mg PO BID carbidopa-levodopa 50-200 mg tablet extended release 2 tab PO TID gabapentin 300 MG capsule 300 mg PO TIDP PRN (Reason: neuropathic pain) atorvastatin 20 MG tablet 20 mg PO HS meloxicam 7.5 MG tablet 7.5 mg PO DAILY lisinopril 20 mg tablet 20 mg PO BID metoprolol succinate 50 mg tablet extended release 24 hr 150 mg PO DAILY insulin aspart U-100 100 unit/mL (3 mL) insulin pen 0 unit SQ DIRECTED Rx Instructions: 32 UNITS BREAKFAST/20 UNITS LUNCH/32 UNITS DINNER SQ as directed; Rybelsus 7 mg tablet 7 mg PO DAILY Discontinued doxycycline hyclate 100 mg capsule 100 mg PO BID ampicillin 500 mg capsule 500 mg PO BID levofloxacin 500 mg tablet 500 mg PO DAILY Problem Reconciliation Problems Reviewed?: Yes Patient Discharge Instructions ACTIVITY: Limited activity DIET: continue same diet Patient Instructions: Osteomyelitis Print Language: Setswana Providers Primary Care Provider: Ricky Jones Admit Provider: Mohinder Matute Attending Provider: Ricky Jones
--- OUTSIDE RECORDS SUMMARY | 2024-10-10 11:36 | XMS_ITS | Data Portability ---
Author Organization [facility] KERRIE Doss TERREBONNE CLOSED Address [address] [place] [address] [address] [place] [address] Care Team Providers Care Interior Decorator Painting Name Role Phone NIURKA JONES Referring Provider [phone] Assessment No assessment recorded. Plan of Treatment Reminders Order Date Submit Date Provider Last Modified By Organization Details Last Modified Time Details Appointments RECHECK 2024 10:30A Orquidea DELANEY CLICK METAL TRIMMER Not available Not available Not available Lab glucose, fingerst ick, blood [address] [facility] , [address] [place] [address], [phone], 08/12/2024 11:58:18 hemoglob in A1C, fingerst ick [address] [facility] , [address] [place] [address], [phone], 08/12/2024 11:58:18 glucose, fingerst ick, blood [address] [facility] , [address] [place] [address], [phone], 01/31/2024 14:05:00 hemoglob in A1C, fingerst ick [address], [address] [place] [address], [phone], 01/31/2024 14:05:01 Referral None recorded . Procedures None recorded . Surgeries None recorded . Imaging None recorded . Medication Orders Lantus Solostar U-100 Insulin 100 unit/mL (3 mL) subcutan eous pen 2024 025 [email or web address] [facility], [address] [place] [address], [id number], 08/12/2024 11:58:17 metformi n 500 mg tablet 2024 025 [email or web address], [address] [place] [address], [id number], 08/12/2024 11:58:17 Novolog FlexPen U-100 Insulin aspart 100 unit/mL (3 mL) subcutan eous 2024 025 [email or web address], [address] [place] [address], [address], 08/12/2024 11:58:17 Rybelsus 7 mg tablet 2024 025 [email or web address], [address] [place] [address], [id number], 08/12/2024 11:58:17 Lantus Solostar U-100 Insulin 100 unit/mL (3 mL) subcutan eous pen 2023 024 [id number] [facility], [address] [place] [address], [id number], 02/20/2024 19:21:58 metformi n 500 mg tablet 2023 024 JOY [facility], [address] [place] [address], [id number], 01/31/2024 14:04:59 Novolog FlexPen U-100 Insulin aspart 100 unit/mL (3 mL) subcutan eous 2023 024 JOY [facility], [address] [place] [address], [address], 01/31/2024 14:05:00 Rybelsus 7 mg tablet 2023 024 JOY [facility], [address] [place] [address], [place], [address], 01/31/2024 14:04:59 Patient TargetsNo targets recorded. Patient Instructions Encounter Date Encounter Id Patient Instructions Last Modified By Organization Details Last Modified Time 01/31/2024 [id number] diabetic eye exam* - please send most recent eye exam [email or web address] Not available 02/16/2024 08:58:56 08/12/2024 [id number] diabetic eye exam* - please send most recent eye exam JOY Not available 10/10/2024 04:21:50 Reason for Referral None Reported. Results Created Date Observation Date Name Description Value Unit Range Abnormal Flag Note LastModifiedBy Organization Detail LastModifiedTime 01/31/20 24 01/31/2024 hemog lobin A1C, finge rstic k hemoglobin A1C % 6.9 % 4.0 - 5.6 Not Available [facility] [address], [address], 01/31/2024 11:18:08 01/31/20 24 01/31/2024 gluco se, finge rstic k, blood glucose, fingerstick 245 mg/dL 70 - 100 Not Available [facility] [address], [address], 01/31/2024 11:13:27 08/12/19 25 08/12/2024 hemog lobin A1C, finge rstic k hemoglobin A1C % 6.9 % 4.0 - 5.6 Not Available [facility] [address], [address], 08/12/2024 08:33:19 08/12/19 25 08/12/2024 gluco se, finge rstic k, blood glucose, fingerstick 177 mg/dL 70 - 100 Not Available [facility] [address], [address], 08/12/2024 08:33:18 Result Notes None recorded. Medical Equipment None Reported. Allergies No known drug allergies Medications Name Sig Start Date Stop Date Status Note LastModified by Organization Details LastModified Time fluoxetine 40 mg capsule Take 1 capsule every day by oral route. active Not Available Not Available No t Available metformin 500 mg tablet Take 2 tablets twice a day by oral route for 90 days. 2024 active Not Available Not Available Not Avai lable atorvastati n 20 mg tablet Take 1 tablet every day by oral route. active Not Available Not Available No t Available metoprolol succinate ER 50 mg tablet,exte nded release 24 hr Take 1 tablet every day by oral route. active Not Available Not Available No t Available Carbidopa-L evodopa CR 25 mg-100 mg tablet,exte nded release Take 1 tablet 3 times a day by oral route. active Not Available Not Available No t Available lisinopril 20 mg tablet Take 1 tablet every day by oral route. active Not Available Not Available No t Available meloxicam 7.5 mg tablet Take 1 tablet every day by oral route. active Not Available Not Available No t Available gabapentin 300 mg capsule Take 1 capsule 3 times a day by oral route. active Not Available Not Available No t Available Novolog FlexPen U-100 Insulin aspart 100 unit/mL (3 mL) subcutaneou s active Not Available Not Available Not Available duloxetine 30 mg capsule,del ayed release Take 1 capsule twice a day by oral route. active Not Available Not Available No t Available Tricor 145 mg tablet Take 1 tablet every day by oral route. active Not Available Not Available No t Available Lantus Solostar U-100 Insulin 100 unit/mL (3 mL) subcutaneou s pen Inject 30 units twice a day by subcutane ous route for 90 days. 2024 active Not Available Not Available Not Avai lable Rexulti 1 mg tablet Take 1 tablet every day by oral route. 08/12 completed Not Available Not Available Not Available Xarelto 2.5 mg tablet Take 1 tablet twice a day by oral route. active Not Available Not Available No t Available Rybelsus 7 mg tablet Take 1 tablet every day by oral route for 90 days. 2024 active Not Available Not Available Not Avai lable Caplyta 42 mg capsule Take 1 capsule every day by oral route. active Not Available Not Available No t Available FreeStyle Jonathan 3 Sensor change every 14 days active Not Available Not Available No t Available Vitals Date Recorded Body weight Heart rate Systolic blood pressure Diastolic blood pressure Provider Name and Address Organization Details Last Updated DateTime 01/31/2024 232344.5 g 95 /min 126 mm[Hg] 74 mm[Hg] [facility] 01/31/2024 11:12:03 Date Recorded Body weight Heart rate Systolic blood pressure Diastolic blood pressure Provider Name and Address Organization Details Last Updated DateTime 08/12/2024 429608.98 g 77 /min 134 mm[Hg] 74 mm[Hg] [facility] 08/12/2024 11:26:24 Social History None recorded. Functional Status None recorded. Mental Status None recorded. Family History Nothing Reported. Medical History No medical history recorded. Gynecological HistoryNo gynecological history recorded. Obstetrics History GPAL:G 0 P 0 0 0 0 Past Encounters Encounter ID Performer Location Encounter Start Date Encounter Closed Date Diagnosis/Indication Diagnosis SNOMED-CT Code Diagnosis ICD10 Code Diagnosis Note [id number] ELAINA WARE, [facility] [address] [place] [address] 01/31/2024 09:52:57 01/31/2024 11:46:40 Uncontrolled type 2 diabetes mellitus 406552823 E11.65 Z79.4 A1c 6.9%Random Glucose:24 5 CGM downloaded , scanned, and findings reviewed with patient and the following changes were made:Olaf nue Lantus 50units BIDIncreas e Novolog 32 units breakfast, 20 units Lunch, and 32units with dinnerCont inue Metformin 500mg take 2 tabs BIDContinu e Rybelsus 7 mg day DM labs UTDFoot Exam UTDEye Exam UTD report requestedf /u in 6 months I had a discussion with patient about the deleteriou s consequenc es of uncontroll ed hyperglyce michael in the form of microvascu lar complicati ons such as diabetic retinopath y, worsening of diabetic nephropath y, diabetic neuropathy and macrovascu lar complicati ons such as coronary artery disease, peripheral arterial disease and stroke. - Monitor blood glucose at least 3 times per day and any time you feel low. -Parveen l our office in 1 week with your blood glucose logs , or send them directly through the patient portal. GLP-1 therapy benefits and risks were discussed in length with patient. Benefits include: lowering appetite, delaying gastric emptying, limiting hepatic glucose output, weight loss, improving insulin release at the time of a meal. Common side effects are nausea and vomiting, which are often self-limit ed with limiting portion size and meal fat content. Risk of pancreatit is was discussed and for what symptoms to go to the ER. We think the benefits of this medication outweigh the risk of pancreatit is. Questionab le concern of stimulatin g pancreatic cancer to grow is being evaluated at this time. In rats, therapy have been shown to cause thyroid C-cell tumors or hyperplasi a. At this time it is unclear if GLP1 therapy increases the risk of thyroid cancer in humans, and currently we think the benefits of this medication outweigh the risk. There is a potential risk of retinopath y which may be temporary. Blood glucose goals :Fasting (before breakfast) 80-1302 hours after meal <180 Low = <70 (Treat by drinking 6oz juice and recheck in 15 min, repeat if still <70) - Restrict carbohydra kiara ( Women: less than 45g/meal and less than 15g/snack) . Eat three meals per day. - Try to be more active as weight loss will help with insulin sensitizat ion. Goal: 30 minutes per day, at least 5 days per week. -Check your feet daily. Wear comfortabl e shoes and socks that fit. A yearly foot exam by a provider is recommende d. -Recommend annual dilated eye exam. Please have results faxed to our office . -Recommend annual flu shot. *Please bring your glucometer to every endocrinol ogy appointmen t. Sign up for the patient portal: [email or web address] [id number] ELAINA VALENCIA CLICK, [facility] [address] [place] [address] 08/12/2024 11:00:23 08/12/2024 11:47:02 Uncontrolled type 2 diabetes mellitus [id number] E11.65 Z79.4 A1c 6.9% no change 6.9%Random Glucose: 177 Increase Lantus 30units BIDContinu e Ecsoeli243 -200 8uvaye754- 250 1yokpz855- 300 6 -4 50 8 sknho266-4 00 05zzhcx185 -450 12 unitsConti nue Metformin 500mg take 2 tabs BIDContinu e Rybelsus 7 mg day DM labs UTDFoot Exam UTDEye Exam UTD f/u in 3 months I had a discussion with patient about the deleteriou s consequenc es of uncontroll ed hyperglyce michael in the form of microvascu lar complicati ons such as diabetic retinopath y, worsening of diabetic nephropath y, diabetic neuropathy and macrovascu lar complicati ons such as coronary artery disease, peripheral arterial disease and stroke. - Monitor blood glucose at least 3 times per day and any time you feel low. -Parveen l our office in 1 week with your blood glucose logs , or send them directly through the patient portal. GLP-1 therapy benefits and risks were discussed in length with patient. Benefits include: lowering appetite, delaying gastric emptying, limiting hepatic glucose output, weight loss, improving insulin release at the time of a meal. Common side effects are nausea and vomiting, which are often self-limit ed with limiting portion size and meal fat content. Risk of pancreatit is was discussed and for what symptoms to go to the ER. We think the benefits of this medication outweigh the risk of pancreatit is. Questionab le concern of stimulatin g pancreatic cancer to grow is being evaluated at this time. In rats, therapy have been shown to cause thyroid C-cell tumors or hyperplasi a. At this time it is unclear if GLP1 therapy increases the risk of thyroid cancer in humans, and currently we think the benefits of this medication outweigh the risk. There is a potential risk of retinopath y which may be temporary. Blood glucose goals :Fasting (before breakfast) 80-1302 hours after meal <180 Low = <70 (Treat by drinking 6oz juice and recheck in 15 min, repeat if still <70) - Restrict carbohydra kiara ( Women: less than 45g/meal and less than 15g/snack) . Eat three meals per day. - Try to be more active as weight loss will help with insulin sensitizat ion. Goal: 30 minutes per day, at least 5 days per week. -Check your feet daily. Wear comfortabl e shoes and socks that fit. A yearly foot exam by a provider is recommende d. -Recommend annual dilated eye exam. Please have results faxed to our office . -Recommend annual flu shot. *Please bring your glucometer to every endocrinol ogy appointmen t. Sign up for the patient portal: [email or web address] Long-term current use of oral hypoglycemic medication [id number] 22817 Z79.84 Health Concerns Section Related Observation LastModified by Organization Detai ls LastModified Time None Recorded Concern Status LastModified by Organization Details LastModified Time None Recorded Advance Directives Directive None Recorded Payers Encounter Date Sequence Insurance Name Policy Number Policy Finn Covered Member ID Finn Member ID Guarantor Name 01/31/2024 1 [place] Emiliana Painter [id number] Emiliana Painter 01/31/2024 2 [employer] - FOR LIFE (MEDICARE SUPPLEMENT) Emiliana Painter [id number] Emiliana Painter 08/12/2024 1 [place] Emiliana Painter [id number] Emiliana Painter 08/12/2024 2 [employer] - FOR LIFE (MEDICARE SUPPLEMENT) Emiliana Painter [id number] Emiliana Painter Notes Date Note Type Note Provider Name and Address Organization Details Recorded Time 01/31/2024 text/html Mrs. Painter is a 63 year old female patient with a past medical history significant for hypertension, hyperlipidemia, and uncontrolled diabetes, who is seen at the office today at the request of Dr. Jones. Previously followed by Dr. Ale Pierson. Patient was diagnosed with diabetes approximately 30 years ago.Family history: Current Treatment Regimen:Lantus 50units BIDNovolog 30 units breakfast, 20 units Lunch, and 30units with dinnerMetformin 500mg take 2 tabs BID No recent episodes of hypoglycemia. Patient is able to recognize and treat appropriately. MNT in the past: {{yes* no}} been a ling timeDiabetes Education class: {{yes* no}} Exercise:NO CGM01/15/24-01/28/24T IR 63%181-250 33%>251 3%low 1%AVG 163GMI 7.2%Glucose variability 28.4%CGM active 97% Duration: {{chronic* new onset}} Control: {{usually well controlled* uncontrol led}}; {{improved worsened}} since last visit; home blood sugar range {{low (below 70) normal* high }}; hemoglobin A1C has been {{greater than 9 8-9 7-8 less than 7*}}; hemoglobin A1C goal is less than 7 Compliance: compliant with medications; compliant with follow-up visits; compliant with diet; compliant with home glucose monitoring; no side effects from medications Self Care: monitoring glucose daily; seeing eye doctor regularly; checking feet regularly;Last dilated eye exam: Mar 2023 Associated Symptoms: no weight gain/weight loss; no dizziness; no sweats; no headaches; no confusion; no increased appetite; no increase thirst; no increased urination; no blurred vision; no numbness/burning/ting ling of feet; no calluses on feet; no SOB; no heart palpitations/racing heart Reports: Chronic Complications:Diabeti c retinopathy: {{Yes No*}}Diabetic neuropathy: {{Yes* No}}gabapentin Diabetic nephropathy: {{Yes No*}}Hypertensi on: {{Yes* No}}lisinopril Hyperlipidemia: {{Yes* No}}atorvastat in [facility] ANNIEKULDIP WARE, METAL TRIMMER [address] [place], [address], [facility] 01/31/2024 14:08:06 08/12/2024 text/html Mrs. Painter is a 64 year old female patient with a past medical history significant for hypertension, hyperlipidemia, and uncontrolled diabetes, who is seen at the office today for follow up. Patient was diagnosed with diabetes approximately 30 years ago. She was last seen in office on 01/31/24. 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 SHe has been home for 3 weeks. Current Treatment Regimen:Lantus 20 units BIDNovolog [id number] 7zonqv143-064 5iaeer117-327 6 -341 8 jajlf196-129 18pzhmq410-485 12 unitsMetformin 500mg take 2 tabs BIDrybelsus 7mg once a day No recent episodes of hypoglycemia. Patient is able to recognize and treat appropriately. MNT in the past: {{yes* no}} been a ling timeDiabetes Education class: {{yes* no}} Exercise:NO Duration: {{chronic* new onset}} Control: {{usually well controlled* uncontrol led}}; {{improved worsened}} since last visit; home blood sugar range {{low (below 70) normal* high }}; hemoglobin A1C has been {{greater than 9 8-9 7-8 less than 7*}}; hemoglobin A1C goal is less than 7 Compliance: compliant with medications; compliant with follow-up visits; compliant with diet; compliant with home glucose monitoring; no side effects from medications Self Care: monitoring glucose daily; seeing eye doctor regularly; checking feet regularly;Last dilated eye exam: 02/01/24 Associated Symptoms: no weight gain/weight loss; no dizziness; no sweats; no headaches; no confusion; no increased appetite; no increase thirst; no increased urination; no blurred vision; no numbness/burning/ting ling of feet; no calluses on feet; no SOB; no heart palpitations/racing heart Reports: Chronic Complications:Diabeti c retinopathy: {{Yes No*}}Diabetic neuropathy: {{Yes* No}}gabapentin Diabetic nephropathy: {{Yes No*}}Hypertensi on: {{Yes* No}}lisinopril Hyperlipidemia: {{Yes* No}}atorvastat in ELAINA ANNIE JEANIE, METAL TRIMMER [address] [place], [address], [facility] 08/12/2024 12:01:20 OBGyn Episode No OBEpisode recorded.
--- OUTSIDE RECORDS SUMMARY | 2024-10-10 11:36 | XMS_ITS ---
Author Organization Unknown Immunizations Date Vaccine DateAdministered TimeAdministered VaccineCode Dose Strength Unit Acoustical Installer DueDate CptCode CvxCode ManufacturerCode LocationCode AdministeredBy 04/17 00:00 :00 Fluzone High Dose (65yr and older) 04/17/2024 11:25:00 11:25:00 [id number] 0.5 mL Sanofi Pasteur 12/31/19 25 00:00:00 [id number] [employer] P[employer] Pam Palacios 04/18 00:00 :00 Fluzone Quad (6months &older) 04/18/2022 10:48:00 10:48:00 081801 0.5 mL [employer]i Paste[employer] 12/31/19 23 00:00:00 [id number] [employer] P[employer] Lindy Hernandez y 04/17 00:00 :00 Fluzone Quad (6months &older) 04/17/2023 09:51:00 09:51:00 [id number] 0.5 mL [employer]i P[employer] 12/31/19 24 00:00:00 [id number] San[employer] P[employer] Pam Palacios 04/17 00:00 :00 PNEUMOVA X 23 VACCINE 04/17/2024 11:25:00 11:25:00 [id number] 0.5 mL [employer] 07/26/19 26 00:00:00 [id number] [employer] Pam Palacios
--- OUTSIDE RECORDS SUMMARY | 2024-10-10 11:36 | XMS_ITS | Continuity of Care Document ---
Author Organization [facility], ENDOCRINOLOGY Address [address] [place] [phone] Care Team Providers Care Systems Test Engineer Name Role Phone KYLER PACKIAN Referring Provider Assessment No assessment recorded. Plan of Treatment Reminders Order Date Submit Date Provider Last Modified By Organization Details Last Modified Time Details Appointments RECHECK 2024 10:30A Orquidea DELANEY CLICK SHAKER SCREEN OPERATOR Not available Not available Not available Lab glucose, fingerst ick, blood [address] Endocr[facility]ology [place], [address] [place] [address], [phone], 08/12/2024 11:58:18 hemoglob in A1C, fingerst ick [address] Endocrinology [place], [address] [place] [address], [phone], 08/12/2024 11:58:18 Referral None recorded . Procedures None recorded . Surgeries None recorded . Imaging None recorded . Medication Orders Lantus Solostar U-100 Insulin 100 unit/mL (3 mL) subcutan eous pen 2024 025 pending sale to [facility], [address] [place] [address], [address], 08/12/2024 11:58:17 metformi n 500 mg tablet 2024 025 [email or web address], [address] [place] [address], [address], 08/12/2024 11:58:17 Novolog FlexPen U-100 Insulin aspart 100 unit/mL (3 mL) subcutan eous 2024 025 [email or web address], [address] [place] [address], [address], 08/12/2024 11:58:17 Rybelsus 7 mg tablet 2024 025 [email or web address], [address] [place] [address], [id number], 08/12/2024 11:58:17 Patient TargetsNo targets recorded. Patient Instructions Encounter Date Encounter Id Patient Instructions Last Modified By Organization Details Last Modified Time 08/12/2024 [id number] diabetic eye exam* - please send most recent eye exam JOY Not available 10/10/2024 04:21:50 Reason for Referral None Reported. Results Created Date Observation Date Name Description Value Unit Range Abnormal Flag Note LastModifiedBy Organization Detail LastModifiedTime 08/12/1908/12/2024 hemog lobin A1C, finge rstic k hemoglobin A1C % 6.9 % 4.0 - 5.6 Not Available [facility] [address] [place], [address], 08/12/2024 08:33:19 08/12/1908/12/2024 gluco se, finge rstic k, blood glucose, fingerstick 177 mg/dL 70 - 100 Not Available [facility] [address] [place], [address], 08/12/2024 08:33:18 Result Notes None recorded. Medical [...] Address Organization Details Last Updated DateTime 08/12/2024 177226.98 g 77 /min 134 mm[Hg] 74 mm[Hg] [facility] 08/12/2024 11:26:24 Social History None recorded. Functional Status None recorded. Mental Status None recorded. Family History Nothing Reported. Medical History No medical history recorded. Gynecological HistoryNo gynecological history recorded. Obstetrics History GPAL:G 0 P 0 0 0 0 Past Encounters Encounter ID Performer Location Encounter Start Date Encounter Closed Date Diagnosis/Indication Diagnosis SNOMED-CT Code Diagnosis ICD10 Code Diagnosis Note [id number] ELAINA VALENCIA JEANIE, SHAKER SCREEN OPERATOR [facility]CR[facility] [address] [place] [address] 08/12/2024 11:00:23 08/12/2024 11:47:02 Uncontrolled type 2 diabetes mellitus 798927839 E11.65 Z79.4 A1c 6.9% no change 6.9%Random Glucose: 177 Increase Lantus 30units BIDContinu e Vvtqkyw107 -200 2iwfif175- 250 3xdvmo399- 300 6 makrt190-8 50 8 ygjss346-0 00 52fnlrm176 -450 12 unitsConti nue Metformin 500mg take [...] bring your glucometer to every endocrinol ogy sotero t. Sign up for the patient portal: [email or web address] al.[email or web address]/ Long-term current use of oral hypoglycemic medication 9700992098 19124 Z79.84 Health Concerns Section Related Observation LastModified by Organization Detai ls LastModified Time None Recorded Concern Status LastModified by Organization Details LastModified Time None Recorded Payers Encounter Date Sequence Insurance Name Policy Number Policy Finn Covered Member ID Finn Member ID Guarantor Name 08/12/2024 1 [place] Emiliana Paitner [id number] Emiliana Heard Painter 08/12/2024 2 WPS - FOR LIFE (MEDICARE SUPPLEMENT) Emiliana Painter [id number] Emiliana Painter Notes Date Note Type Note Provider Name and Address Organization Details Recorded Time 08/12/2024 text/html Mrs. Painter is a 64 [...] amputation of 4/5th digits then [facility]. SHe has been home for 3 weeks. Current Treatment Regimen:Lantus 20 units BIDNovolog KDV481-726 9ouify122-042 0asaui155-014 6 aycht195-382 8 yhmre792-176 40vejvg245-892 12 unitsMetformin 500mg take 2 tabs BIDrybelsus 7mg once a day No recent episodes of hypoglycemia. Patient is able to recognize and treat appropriately. MNT in the past: {{yes* no}} been a ling timeDiabetes Education class: {{yes* no}} Exercise:NO Duration: {{chronic* new onset}} Control: {{usually well controlled* uncontro lled}}; {{improved worsened} } since last visit; home blood sugar range [...] no increased urination; no blurred vision; no numbness/burning/tin gling of feet; no calluses on feet; no SOB; no heart palpitations/racing heart Reports: Chronic Complications:Diabet ic retinopathy: {{Yes No*}}Diabetic neuropathy: {{Yes* No}}gabapenti nDiabetic nephropathy: {{Yes No*}}Hypertens ion: {{Yes* No}}lisinopri lHyperlipidemia: {{Yes* No}}atorvasta marcus WARE, SHAKER SCREEN OPERATOR [address] [place], [address], [facility] 08/12/2024 12:01:20 OBGyn Episode No OBEpisode recorded.
== END 2024-09-13 17:58 | disposition home health service (06) | DRG 475 ==
LOC: ER 16:19 → 2ND 16:42
PROVIDERS: Physician Assistant; Podiatrist; Admitting Provider Internal Medicine Adolescent Medicine; Emergency Provider Emergency Medicine; PCP Family Medicine; Visit Provider Family Medicine
PROC: 0Y6M0Z0 Detachment at Right Foot, Complete, Open Approach (ICD-10-PCS; principal; 2024-09-11 14:45)
DX: M86.471 Chronic osteomyelitis with draining sinus, right ankle and foot (principal); F33.9 Major depressive disorder, recurrent, unspecified; L97.516 Non-pressure chronic ulcer of other part of right foot with bone involvement without evidence of necrosis; L03.115 Cellulitis of right lower limb; G21.19 Other drug induced secondary parkinsonism; E11.42 Type 2 diabetes mellitus with diabetic polyneuropathy; E11.621 Type 2 diabetes mellitus with foot ulcer; E66.9 Obesity, unspecified; Z68.37 Body mass index [BMI] 37.0-37.9, adult; E11.51 Type 2 diabetes mellitus with diabetic peripheral angiopathy without gangrene; M19.90 Unspecified osteoarthritis, unspecified site; R60.0 Localized edema; E78.5 Hyperlipidemia, unspecified; Z90.49 Acquired absence of other specified parts of digestive tract; Z83.3 Family history of diabetes mellitus; Z82.49 Family history of ischemic heart disease and other diseases of the circulatory system; Z82.3 Family history of stroke; Z80.9 Family history of malignant neoplasm, unspecified; Z89.421 Acquired absence of other right toe(s); Z91.198 Patient's noncompliance with other medical treatment and regimen for other reason; Z79.01 Long term (current) use of anticoagulants; Z79.84 Long term (current) use of oral hypoglycemic drugs; Z79.85 Long-term (current) use of injectable non-insulin antidiabetic drugs; Z79.82 Long term (current) use of aspirin; Z85.3 Personal history of malignant neoplasm of breast
CPT/HCPCS: 36415; 36569; 71045; 73630; 73701; 80048; 80053; 82962; 83605; 85025; 85651; 86140; 87040; 87070; 87077; 87186; 87205; 88304; 88305; 88307; 88311; 93005; 97163; 97530; 99285; C1751; J0878; J1100; J1956; J2270; J2405; J3010; J3372; J7120; Q9967

== ENCOUNTER 2024-09-14 09:36 | Emergency (ER) | payer MEDICARE, OTHER, SELFPAY ==
[2024-09-14 09:42] VITALS: BP 143/67; PULSE 88; O2SAT 97
[2024-09-14 09:44] VITALS: BP 143/67; PULSE 78; RESP 20; TEMP 37.7; O2SAT 98; BMI 37.5
--- NOTE | 2024-09-14 09:50 | PC.NURSE ---
speaking with Dr. Jones. he wants us to initiate peripheral Iv access,infuse antibiotics and send pt home with IV
[2024-09-14 10:00] VITALS: BP 141/69; PULSE 82; O2SAT 98
[2024-09-14] MEDS: DAPTOmycin 1,000 MG in 0.9 % SODIUM CHLORIDE 50 ML 100 MG IV (10:10)
[2024-09-14] MEDS: LEVOFLOXACIN/D5W 500 MG/100 ML PIGGYBACK 100 MG IV (10:32)
--- NOTE | 2024-09-14 10:40 | ED_ITS ---
Discharge Plan Disposition Patient Disposition: Home, Self-Care Condition: Good Prescriptions Prescriptions: No Action aspirin [Jacki Low Dose Aspirin] 81 mg tablet,delayed release (DR/EC) 81 mg PO DAILY duloxetine 60 mg capsule,delayed release(DR/EC) 60 mg PO DAILY Qty: 90 1RF duloxetine 30 mg capsule,delayed release(DR/EC) 30 mg PO DAILY Qty: 90 0RF fluoxetine 40 mg capsule 40 mg PO DAILY Qty: 90 1RF Caplyta 42 mg capsule 42 mg PO DAILY Qty: 90 0RF fenofibrate nanocrystallized 145 mg tablet 145 mg PO DAILY Xarelto 2.5 mg tablet 2.5 mg PO BID Qty: 60 2RF calcium carbonate-vitamin D3 1 EACH tablet 1 each PO BID insulin glargine 100 unit/mL solution 30 unit SQ BID metformin 500 mg tablet 1,000 mg PO BID carbidopa-levodopa 50-200 mg tablet extended release 2 tab PO TID gabapentin 300 MG capsule 300 mg PO TIDP PRN (Reason: neuropathic pain) DAPTOmycin [Cubicin 500mg vial] 1000 MG 0.9 % Sodium Chloride [Sod Chlor 0.9% 50mL bag] 50 ML 100 mls/hr IV Q24H Reason for use: Infection Ordered By: Ricky Jones MD Last Taken: Unknown levofloxacin in D5W 500 mg/100 mL piggyback 500 mg IV Q24H tramadol 50 mg tablet 50 mg PO Q8H PRN (Reason: pain) Qty: 20 0RF atorvastatin 20 MG tablet 20 mg PO HS meloxicam 7.5 MG tablet 7.5 mg PO DAILY lisinopril 20 mg tablet 20 mg PO BID metoprolol succinate 50 mg tablet extended release 24 hr 150 mg PO DAILY insulin aspart U-100 100 unit/mL (3 mL) insulin pen 0 unit SQ DIRECTED Rx Instructions: 32 UNITS BREAKFAST/20 UNITS LUNCH/32 UNITS DINNER SQ as directed; Rybelsus 7 mg tablet 7 mg PO DAILY Referrals Follow up/Referrals: Ricky Jones MD [Primary Care Provider] - See instructions Activity Restrictions/Add. Instructions Additional Instructions/Restrictions: Please keep your IV in place. Keep it clean and dry. Try not to remove it. Continue outpatient IV antibiotics as instructed previously. You will need to present Monday for outpatient PICC line placement. Please follow-up closely with Dr. Jones for further instructions regarding this, as he will be the one to order it. Return to the emergency department for new or worsening symptoms. Clinical Impressions Clinical Impression: Osteomyelitis S/P transmetatarsal amputation of foot Qualifiers: Laterality: right Qualified Code(s): Z89.431 - Acquired absence of right foot Instructions Patient Instructions: Peripherally Inserted Central Catheter Print Language Print Language: Bruneian Discharge ED Provider: [facility] HPI General Chief complaint: Recheck/Abnormal Lab/Rx Stated complaint: need pic line replaced Time Seen by Provider: 09/14/24 09:41 Mode of Arrival: Wheelchair Source of Information: Patient and Spouse Description of Symptoms (Recalled from ER Triage Doc. by RN): pt came because she has pulled her PICC line out twice and is supposed to get iv antibiotics bid History of Present Illness HPI narrative: This patient is a 64-year-old female with a history of type 2 diabetes, diabetic foot wound with chronic osteomyelitis of the right foot, obesity, venous insufficiency presenting to the emergency department for evaluation with concern for accidental removal of her PICC line. Patient states that she accidentally pulled her PICC line out overnight and was unable to give herself her home dose of antibiotic this morning. She is on daptomycin and Levaquin on an outpatient basis for chronic osteomyelitis of the right foot. She was just admitted to the hospital 09/10/2024 through 09/13/2024 for management of osteomyelitis of the right foot, at which point she underwent R foot TMA on 09/11/24. She was discharged on Levaquin and daptomycin yesterday after uncomplicated hospital cou rse. She states she is been doing fine since going home, has no new concerns or complaints. Related Data Home Medications ?Medication ?Instructions ?Recorded ?Confirmed atorvastatin 20 mg tablet 20 mg PO HS 07/05/17 09/11/24 meloxicam 7.5 mg tablet 7.5 mg PO DAILY 07/05/17 09/11/24 calcium 600 mg (as 1 each PO BID 10/09/18 09/11/24 carbonate)-vitamin D3 20 mcg (800 unit) tablet aspirin 81 mg tablet,delayed 81 mg PO DAILY 05/09/19 09/11/24 release (Jacki Low Dose Aspirin) fenofibrate nanocrystallized 145 145 mg PO DAILY 10/30/19 09/11/24 mg tablet lisinopril 20 mg tablet 20 mg PO BID Hypertension 10/30/19 09/11/24 metoprolol succinate 50 mg 150 mg PO DAILY 07/05/22 09/11/24 tablet,extended release 24 hr semaglutide 7 mg tablet (Rybelsus) 7 mg PO DAILY 11/07/23 09/11/24 insulin aspart U-100 100 unit/mL 0 unit SQ DIRECTED 02/22/24 09/11/24 (3 mL) subcutaneous pen carbidopa ER 50 mg-levodopa 200 mg 2 tab PO TID 09/11/24 09/11/24 tablet,extended release gabapentin 300 mg capsule 300 mg PO TIDP PRN neuropathic pain 09/11/24 09/11/24 insulin glargine 100 unit/mL 30 unit SQ BID 09/11/24 09/11/24 subcutaneous solution metformin 500 mg tablet 1,000 mg PO BID 09/11/24 09/11/24 Previous Rx's ?Medication ?Instructions ?Recorded rivaroxaban 2.5 mg tablet (Xarelto) 2.5 mg PO BID #60 tabs 07/18/24 duloxetine 30 mg capsule,delayed 30 mg PO DAILY #90 caps 08/09/24 release duloxetine 60 mg capsule,delayed 60 mg PO DAILY #90 caps 08/09/24 release fluoxetine 40 mg capsule 40 mg PO DAILY #90 caps 08/09/24 lumateperone 42 mg capsule 42 mg PO DAILY #90 caps 08/09/24 (Caplyta) DAPTOmycin [Cubicin 500mg vial] 100 mls/hr IV Q24H Infection 09/13/24 1,000 mg levofloxacin 500 mg/100 mL in 5 % 500 mg IV Q24H 09/13/24 dextrose intravenous piggyback tramadol 50 mg tablet 50 mg PO Q8H PRN pain #20 tabs 09/13/24 Allergies Allergy/AdvReac Type Severity Reaction Status Date / Time No Known Allergies Allergy Verified 09/10/24 10:28 [facility] Disclaimer: The information contained in this section may have been updated after the patient was seen, as this information can be updated by other users. 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 Surgical History History of amputation of toe History of tonsillectomy and adenoidectomy History of skin graft History of lumpectomy of left breast History of cholecystectomy History of lumpectomy of left breast History of carpal tunnel surgery of left wrist Hx of cholecystectomy Family History Other Cancer Coronary artery disease Diabetes Hyperlipidemia Hypertension Stroke Social History Smoking Status: Never smoker alcohol intake: never substance use type: denies use current occupational status: disabled Travel in the last 8 weeks: None household members: spouse housing: house number of children: 0 current occupational exposures/hazards: No caffeine: Yes Have you lived/traveled outside [place] in past 30 days?: No Contact w/someone who lives/traveled outside [place] past 30 days?: No Exposure to someone with infectious disease in past 14 days?: No Do you have a fever (greater than 100.4 F or 38 C)?: No Have you tested positive for COVID-19: No Exposed to someone with COVID-19 in past 14 days?: No Do you have a sore throat?: No Do you have a cough?: No Do you have any weakness?: No Do you have any diarrhea?: No Are you experiencing any unusual bleeding?: No Do you have any muscle aches/pain?: No Do you have any abdominal pain?: No Are you experiencing loss of taste or smell?: No Other Medical History Have you received the Flu Vaccine for this season: No Have you received the Pneumonia Vaccine: No ROS Obtained: Yes All systems reviewed & no additional complaints except as documented Physical Exam General General appearance: alert and in no apparent distress Head Head exam: atraumatic and normocephalic Eye Eye exam: Present normal appearance, PERRL and EOMI ENT ENT exam: Present normal exam, normal oropharynx, mucous membranes moist and normal external ear exam Neck Neck exam: Present normal inspection, full ROM and trachea midline; Absent tenderness Chest Chest inspection: Present normal inspection and symmetric chest wall rise; A bsent tenderness Respiratory Respiratory exam: Present normal lung sounds bilaterally; Absent respiratory distress, wheezes, stridor or accessory muscle use Cardiovascular Cardiovascular exam: Present regular rate and normal rhythm Abdominal Exam Abdominal exam: Present soft; Absent distention, tenderness or guarding Extremities Exam Extremities exam: Present normal capillary refill and other (dressing in place to RLE c/d/i); Absent edema Back Exam Back exam: Present normal inspection and full ROM; Absent tenderness Neurological Exam Neurological exam: Present alert, oriented X3, CN II-XII intact and normal gait; Absent motor sensory deficit Psychiatric Psychiatric exam: Present normal affect and normal mood Skin Skin exam: Present warm and dry Medical Decision Making Medical Records Medical records reviewed: Yes I reviewed the patient's medical records. Screening: Per USPSTF and CDC recommendations, given the prevalence of disease in our region, it is our hospital?s policy to screen for HIV and viral Hepatitis for all patients aged 18 and over and those with ongoing risk factors. Gunner Inquiry Pt receiving controlled substance: No Vital Signs: 09/14/24 09:42 09/14/24 09:44 09/14/24 10:00 Temperature 100 F H Temperature Source Oral Pulse Rate 88 82 Pulse Rate [Right] 78 Respiratory Rate 20 Blood Pressure 143/67 H 141/69 H Blood Pressure [Right Arm] 143/67 H Blood Pressure Mean [Right Arm] 92 Blood Pressure Source Blood Pressure Position 02 Sat by Pulse Oximetry 97 98 98 Oxygen Delivery Method 09/14/24 11:28 09/14/24 11:31 Temperature 99.7 F H 99.6 F Temperature Source Oral Oral Pulse Rate 84 84 Pulse Rate [Right] Respiratory Rate 18 15 Blood Pressure 143/67 H 143/67 H Blood Pressure [Right Arm] Blood Pressure Mean [Right Arm] Blood Pressure Source Automatic Cuff Blood Pressure Position Sitting 02 Sat by Pulse Oximetry Oxygen Delivery Method Room Air Lab Data Lab results reviewed: Yes I reviewed the patient's lab results. Orders (Tests/Meds): ED MEDICATIONS Discontinued Medications Generic Name Dose Route Start Last Admin Trade Name Freq PRN Reason Stop Dose Admin Levofloxacin/Dextrose 500 mg in 100 mls @ 100 mls/hr 09/14/24 10:00 09/14/24 10:32 Levaquin 500mg/100ml Premix IV 09/24/24 09:59 100 mls/hr Q24H [place] Administration Daptomycin 1,000 mg/ Sodium 50 mls @ 100 mls/hr 09/14/24 10:00 09/14/24 10:10 Chloride IV 09/14/24 10:29 100 mls/hr ONCE ONE Administration Miscellaneous 1 each 09/14/24 09:49 09/14/24 10:06 Pharmacy Consult Request NOTAPPLIC 09/14/24 09:50 1 each CONSULT PHARMACY ONE Administration Medical Decision Narrative: In summary, this patient is a 64-year-old female presenting to the Emergency Department for evaluation of accidental removal of her PICC line. She is on outpatient IV antibiotics for osteomyelitis of the right foot status post TMA 09/11/2024. She states she is been doing fine at home. I considered labs and imaging to assess her right foot, however since she is doing fine with no concerns or complaints and exam is overall reassuring, I do not feel that this is indicated as it would likely not global director air and climate change. I discussed with hospital housekeeper, we do not have anyone in house able to place a PICC line at this time. This will have to be done on an outpatient basis on Monday. Given this, I called and had an interactive discussion with the patient's primary care provider, Dr. Jones, to see if you would want to admit her for IV antibiotics pending placement of a PICC line on Monday. He recommended placing an IV catheter for antibiotic administration here in the emergency department and leaving it in place until Monday when she can come in for an outpatient PICC line placement. IV was placed, antibiotics were given, patient tolerated this well. Given this, we will discharge her home with IV in place for continued outpatient IV antibiotics. Strict return precautions were given as well as instructions for IV care. Critical Care Critical Care Time Critical Care Time: No
[2024-09-14 11:28] VITALS: BP 143/67; PULSE 84; RESP 18; TEMP 37.6; O2SAT 98
[2024-09-14 11:31] VITALS: BP 143/67; PULSE 84; RESP 15; TEMP 37.6
--- NOTE | 2024-09-17 11:29 | SW/DCPLANNER ---
Phoned patient x2. Patient did not answer and i left messages with name and number. Tesfaye ECHEVERRIA [employer]
== END 2024-09-14 11:32 | disposition home or self-care (01) ==
PROVIDERS: Emergency Provider Emergency Medicine; PCP Family Medicine
DX: M86.9 Osteomyelitis, unspecified (principal); Z89.431 Acquired absence of right foot
CPT/HCPCS: 96365; 96367; 99284; J0878; J1956

== ENCOUNTER 2024-09-16 10:00 | Outpatient (CLI) | payer MEDICARE, OTHER, SELFPAY ==
[2024-09-16 10:47] VITALS: BMI 37.1
--- NOTE | 2024-09-16 10:48 | XR_ITS ---
FINAL REPORT TECHNIQUE: Single view chest CLINICAL HISTORY: PICC line placement COMPARISON: 09/13/2024 FINDINGS: A single view of the chest was obtained. There is a left-sided PICC with the tip in the SVC. The heart and mediastinum are within normal limits. The lungs are clear. There is no pneumothorax. IMPRESSION: Left-sided PICC in good position. Reviewed, Interpreted and Dictated by Clifton Rodriguez MD Transcribed by Pam Ramos Authenticated and . [facility]
== END 2024-09-16 11:53 | disposition home or self-care (01) ==
LOC: INF 10:01
PROVIDERS: PCP Family Medicine; Visit Provider Podiatrist
DX: M86.171 Other acute osteomyelitis, right ankle and foot (principal); E11.9 Type 2 diabetes mellitus without complications
CPT/HCPCS: 36569; 71045; C1751

== ENCOUNTER 2024-09-16 17:24 | Outpatient (CLI) | payer MEDICARE, OTHER, SELFPAY ==
[2024-09-16 20:06] LABS: Erythrocyte Sedimentation Rate 100 mm/hr (0-30)
[2024-09-16 20:08] LABS: Basophils # 0.1 K/mm3 (0-0.2); Basophils % 0.6 % (0.1-2.0); Eosinophils # 0.4 K/mm3 (0.0-0.4); Eosinophils % 3.7 % (0.1-12.0); Hematocrit 27.8 % (37.0-47.0); Hemoglobin 8.9 g/dL (12.2-16.2); Lymphocytes % 18.9 % (10-50); Mean Corpuscular Hemoglobin 28.4 pg (27.0-31.2); Mean Corpuscular Volume 88.8 fl (81-99); Mean Platelet Volume 12.6 fl (7.4-10.4); Monocytes # 0.7 K/mm3 (0.1-1.0); Monocytes % 6.5 % (1.7-9.3); Neutrophils # 7.3 K/mm3 (1.8-7.8); Neutrophils % 70.1 % (37.0-80.0); Platelet Count 214 K/mm3 (142-424); Red Blood Count 3.13 M/mm3 (4.20-5.40); White Blood Count 10.3 K/mm3 (4.8-10.8)
[2024-09-16 20:22] LABS: Albumin Level 3.4 g/dl (3.5-5.0); Chloride 104 mmol/L (98-107); Potassium 4.1 mmoL/L (3.5-5.1); Sodium 138 mmol/L (136-145)
[2024-09-16 20:25] LABS: Alanine Aminotransferase 17 U/L (12-78); Albumin/Globulin Ratio 1.4 (1.1-1.8); Alkaline Phosphatase 56 U/L (38-126); Anion Gap 10.1 mEq/L (5-15); Aspartate Amino Transferase 43 U/L (14-36); Bilirubin,Total 0.3 mg/dl (0.2-1.3); Blood Urea Nitrogen 24 mg/dl (7-17); Calcium 9.5 mg/dl (8.4-10.2); Carbon Dioxide 28 mmol/L (22.0-30.0); Creatine Kinase 491 U/L (30-135); Estimated Glomerular Filt Rate 100 ml/min (>60); GFR (African American) 121 ML/MIN (>60); Globulin 2.5 g/dL (1.3-3.2); Glucose 118 mg/dl (74-100); Total Protein,Serum 5.9 g/dl (6.3-8.2)
== END 2024-09-16 23:59 | disposition home or self-care (01) ==
LOC: LAB.DROPOF 17:28
PROVIDERS: PCP Podiatrist; Visit Provider Podiatrist
DX: M86.9 Osteomyelitis, unspecified (principal)
CPT/HCPCS: 80053; 82550; 85025; 85651; 86140

== ENCOUNTER 2024-09-23 16:28 | Outpatient (CLI) | payer MEDICARE, OTHER, SELFPAY ==
[2024-09-23 17:28] LABS: Basophils # 0.1 K/mm3 (0-0.2); Basophils % 0.4 % (0.1-2.0); Eosinophils # 0.7 K/mm3 (0.0-0.4); Eosinophils % 6.4 % (0.1-12.0); Hematocrit 29.4 % (37.0-47.0); Hemoglobin 9.5 g/dL (12.2-16.2); Lymphocytes # 1.6 K/mm3 (0.7-4.5); Lymphocytes % 13.9 % (10-50); Mean Corpuscular HGB Conc 32.3 g/dL (31.8-35.4); Mean Corpuscular Hemoglobin 28.5 pg (27.0-31.2); Mean Corpuscular Volume 88.3 fl (81-99); Mean Platelet Volume 11.7 fl (7.4-10.4); Monocytes # 0.7 K/mm3 (0.1-1.0); Monocytes % 6.5 % (1.7-9.3); Neutrophils # 8.2 K/mm3 (1.8-7.8); Neutrophils % 72.2 % (37.0-80.0); Platelet Count 263 K/mm3 (142-424); Red Blood Count 3.33 M/mm3 (4.20-5.40); Red Cell Distribution Width 13.8 % (11.5-17.5); White Blood Count 11.3 K/mm3 (4.8-10.8)
[2024-09-23 18:31] LABS: Alanine Aminotransferase 46 U/L (12-78); Albumin Level 3.4 g/dl (3.5-5.0); Albumin/Globulin Ratio 1.3 (1.1-1.8); Alkaline Phosphatase 57 U/L (38-126); Anion Gap 6.2 mEq/L (5-15); Aspartate Amino Transferase 128 U/L (14-36); Bilirubin,Total 0.3 mg/dl (0.2-1.3); Blood Urea Nitrogen 23 mg/dl (7-17); Calcium 10.1 mg/dl (8.4-10.2); Carbon Dioxide 35 mmol/L (22.0-30.0); Chloride 105 mmol/L (98-107); Creatine Kinase 1268 U/L (30-135); Estimated Glomerular Filt Rate 84 ml/min (>60); GFR (African American) 102 ML/MIN (>60); Globulin 2.7 g/dL (1.3-3.2); Glucose 84 mg/dl (74-100); Potassium 4.2 mmoL/L (3.5-5.1); Sodium 142 mmol/L (136-145); Total Protein,Serum 6.1 g/dl (6.3-8.2)
[2024-09-23 18:37] LABS: C-Reactive Protein 58.8 mg/L (0-4)
[2024-09-23 19:01] LABS: Erythrocyte Sedimentation Rate 72 mm/hr (0-30)
== END 2024-09-23 23:59 | disposition home or self-care (01) ==
LOC: LAB.DROPOF 16:30
PROVIDERS: PCP Podiatrist; Visit Provider Podiatrist
DX: Z89.431 Acquired absence of right foot (principal); Z98.890 Other specified postprocedural states; M86.9 Osteomyelitis, unspecified; L03.115 Cellulitis of right lower limb; B96.1 Klebsiella pneumoniae [K. pneumoniae] as the cause of diseases classified elsewhere; Z22.322 Carrier or suspected carrier of Methicillin resistant Staphylococcus aureus
CPT/HCPCS: 80053; 82550; 85025; 85651; 86140; 87070; 87077; 87186; 87205

== ENCOUNTER 2024-09-25 10:58 | Emergency (ER) | payer MEDICARE, OTHER, SELFPAY ==
[2024-09-25] VITALS (9 sets, daily range): BP systolic 129–171; BP diastolic 60–88; PULSE 68–79; RESP 15–16; TEMP 36.9–37.1; O2SAT 95–98; BMI 37.1
--- NOTE | 2024-09-25 11:52 | CT_ITS ---
FINAL REPORT TECHNIQUE: Axial imaging through the leg and proximal foot were performed after the injection of IV contrast. Coronal and sagittal reconstructions were performed. This study was performed with techniques to keep radiation doses as low as reasonably achievable (ALARA). Individualized dose reduction techniques using automated exposure control or adjustment of mA and/or kV according to the patient's size were employed. CLINICAL HISTORY: concern for cellulitis vs NSTI COMPARISON: 09/10/2024 FINDINGS: CT RIGHT LOWER EXTREMITY WITH CONTRAST There is no acute osseous abnormality of the tibia or fibula. There is no fracture or bone destruction. There has been interval resection of the forefoot at the tarsometatarsal joints since the prior exam. There is mild degenerative joint disease of the hindfoot and midfoot. There is no bone destruction. There is a soft tissue defect along the lateral aspect of the distal remaining foot. This could be a postsurgical defect. Subcutaneous air is not excluded. Imaging was not continued through the distalmost aspect of the remaining foot. There is diffuse tissue edema. There is no peripherally enhancing loculated fluid collection. Surgical skin reji are noted. IMPRESSION: Interval resection of the forefoot at the tarsometatarsal joints. No bone destruction to suggest osteomyelitis. Consider MRI if clinical concerns persist. Diffuse soft tissue edema consistent with cellulitis without evidence of abscess. Reviewed, Interpreted and Dictated by Rena Staton MD Transcribed by Babs Calzada Authenticated and [facility]
[2024-09-25 12:06] LABS: Lactate Venous 1.9 mmol/L (0.4-2.0); VBG Base Excess 1.1 mmol/L (-2.4-2.3); VBG HCO3 25.2 mmol/L (23-30); VBG Oxygen Saturation 78.5 % (50-70); VBG PCO2 37.9 mmol/L (35-51); VBG PH 7.44 mmol/L (7.31-7.41); VBG PO2 43.7 mmol/L (28-40); VBG Total CO2 26.4 mmol/L (23-27)
[2024-09-25 12:06] LABS: Basophils # 0.1 K/mm3 (0-0.2); Basophils % 0.5 % (0.1-2.0); Eosinophils # 0.8 K/mm3 (0.0-0.4); Eosinophils % 6.6 % (0.1-12.0); Hematocrit 27.8 % (37.0-47.0); Hemoglobin 8.9 g/dL (12.2-16.2); Lymphocytes # 1.8 K/mm3 (0.7-4.5); Lymphocytes % 15.4 % (10-50); Mean Corpuscular Hemoglobin 28.5 pg (27.0-31.2); Mean Corpuscular Volume 89.1 fl (81-99); Mean Platelet Volume 10.9 fl (7.4-10.4); Monocytes # 0.7 K/mm3 (0.1-1.0); Monocytes % 5.9 % (1.7-9.3); Neutrophils # 8.4 K/mm3 (1.8-7.8); Neutrophils % 70.9 % (37.0-80.0); Platelet Count 259 K/mm3 (142-424); Red Blood Count 3.12 M/mm3 (4.20-5.40); Red Cell Distribution Width 13.5 % (11.5-17.5); White Blood Count 11.8 K/mm3 (4.8-10.8)
[2024-09-25] MEDS: SODIUM CHLORIDE 0.9% 10ML SYR (RAD ONLY) 10 ML IV (12:06)
[2024-09-25] MEDS: IOPAMIDOL-370 (76%);100ML BOTTLE 75 ML IV (12:06)
[2024-09-25 12:17] LABS: Alanine Aminotransferase 16 U/L (12-78); Albumin Level 3.6 g/dl (3.5-5.0); Albumin/Globulin Ratio 1.2 (1.1-1.8); Alkaline Phosphatase 44 U/L (38-126); Anion Gap 14.2 mEq/L (5-15); Aspartate Amino Transferase 112 U/L (14-36); Bilirubin,Total 0.4 mg/dl (0.2-1.3); Blood Urea Nitrogen 23 mg/dl (7-17); Calcium 9.3 mg/dl (8.4-10.2); Carbon Dioxide 26 mmol/L (22.0-30.0); Chloride 103 mmol/L (98-107); Creatinine Clearance Estimated 92 mL/min (50-200); Estimated Glomerular Filt Rate 100 ml/min (>60); GFR (African American) 121 ML/MIN (>60); Glucose 63 mg/dl (74-100); Potassium 4.2 mmoL/L (3.5-5.1); Sodium 139 mmol/L (136-145); Total Protein,Serum 6.6 g/dl (6.3-8.2)
[2024-09-25 12:21] LABS: Lactic Acid 1.5 mmol/L (0.7-2.1)
--- NOTE | 2024-09-25 12:21 | HMH.EDGENADL ---
Discharge Plan Disposition Patient Disposition: Xfer Short-Term Hosp Chief Complaint: Skin/Abscess/Foreign Body Prescriptions Prescriptions: No Action aspirin [Jacki Low Dose Aspirin] 81 mg tablet,delayed release (DR/EC) 81 mg PO DAILY duloxetine 60 mg capsule,delayed release(DR/EC) 60 mg PO DAILY Qty: 90 1RF duloxetine 30 mg capsule,delayed release(DR/EC) 30 mg PO DAILY Qty: 90 0RF fluoxetine 40 mg capsule 40 mg PO DAILY Qty: 90 1RF Caplyta 42 mg capsule 42 mg PO DAILY Qty: 90 0RF fenofibrate nanocrystallized 145 mg tablet 145 mg PO DAILY Xarelto 2.5 mg tablet 2.5 mg PO BID Qty: 60 2RF nitroglycerin [Nitro-Dur] 0.4 mg/hr patch 24 hour 1 patch transdermal DAILY 30 Days Qty: 30 2RF Rx Instructions: allow nitrate-free interval of approx. 10-12 hrs per 24-hour period apply to front of right ankle to help with circulation to right amputation flap site calcium carbonate-vitamin D3 1 EACH tablet 1 each PO BID insulin glargine 100 unit/mL solution 30 unit SQ BID metformin 500 mg tablet 1,000 mg PO BID carbidopa-levodopa 50-200 mg tablet extended release 2 tab PO TID gabapentin 300 MG capsule 300 mg PO TIDP PRN (Reason: neuropathic pain) DAPTOmycin [Cubicin 500mg vial] 1000 MG 0.9 % Sodium Chloride [Sod Chlor 0.9% 50mL bag] 50 ML 100 mls/hr IV Q24H Reason for use: Infection Ordered By: Ricky Jones MD Last Taken: Unknown levofloxacin in D5W 500 mg/100 mL piggyback 500 mg IV Q24H tramadol 50 mg tablet 50 mg PO Q8H PRN (Reason: pain) Qty: 20 0RF atorvastatin 20 MG tablet 20 mg PO HS meloxicam 7.5 MG tablet 7.5 mg PO DAILY lisinopril 20 mg tablet 20 mg PO BID metoprolol succinate 50 mg tablet extended release 24 hr 150 mg PO DAILY insulin aspart U-100 100 unit/mL (3 mL) insulin pen 0 unit SQ DIRECTED Rx Instructions: 32 UNITS BREAKFAST/20 UNITS LUNCH/32 UNITS DINNER SQ as directed; Rybelsus 7 mg tablet 7 mg PO DAILY Referrals Follow up/Referrals: Ricky Jones MD [Primary Care Provider] - See instructions Clinical Impressions Clinical Impression: Necrotizing soft tissue infection, Myositis Stand Alone Forms Stand Alone Forms: Transfer Record - ED Instructions Patient Instructions: DI for Skin Abscess Print Language Print Language: Panamanian Discharge ED Provider: Xavi Nicholson General Adult HPI General Chief complaint: Skin/Abscess/Foreign Body Stated complaint: rt leg swelling, skin peeling, amp 2 wks ago Time Seen by Provider: 09/25/24 11:11 Mode of Arrival: Ambulatory Source of Information: Patient Description of Symptoms (Recalled from ER Triage Doc. by RN): patient states she has been getting iv antibiotics 3x a day for a recent partial amputation to her right foot and for one week her leg has been red and swollen warm to touch and her home health nurse told her she needed to come to er to be evaluated. she does have a single lumen picc in her left arm. she denies any pain History of Present Illness HPI narrative: Please note that above description of symptoms, in this electronic medical record under categorization of recalled from ER triage doctor by RN are reflective of an initial nursing assessment, however, is not reflective of my full history and physical exam that was personally taken and clarified. Consequentially, this preceding description of symptoms, which may include the patient's categorized chief complaint in the EMR, do not reflect my personal clinical impression, and the ultimate description of history of present illness and patient stated complaints should be deferred to this section of the note. Unless stated otherwise or congruent with this section of the note, additional signs, symptoms, or incongruence should be interpreted as inaccurate with my clinical impression. Related Data Home Medications ?Medication ?Instructions ?Recorded ?Confirmed atorvastatin 20 mg tablet 20 mg PO HS 07/05/17 09/23/24 meloxicam 7.5 mg tablet 7.5 mg PO DAILY 07/05/17 09/23/24 calcium 600 mg (as 1 each PO BID 10/09/18 09/23/24 carbonate)-vitamin D3 20 mcg (800 unit) tablet aspirin 81 mg tablet,delayed 81 mg PO DAILY 05/09/19 09/23/24 release (Jacki Low Dose Aspirin) fenofibrate nanocrystallized 145 145 mg PO DAILY 10/30/19 09/23/24 mg tablet lisinopril 20 mg tablet 20 mg PO BID Hypertension 10/30/19 09/23/24 metoprolol succinate 50 mg 150 mg PO DAILY 07/05/22 09/23/24 tablet,extended release 24 hr semaglutide 7 mg tablet (Rybelsus) 7 mg PO DAILY 11/07/23 09/23/24 insulin aspart U-100 100 unit/mL 0 unit SQ DIRECTED 02/22/24 09/23/24 (3 mL) subcutaneous pen carbidopa ER 50 mg-levodopa 200 mg 2 tab PO TID 09/11/24 09/23/24 tablet,extended release gabapentin 300 mg capsule 300 mg PO TIDP PRN neuropathic pain 09/11/24 09/23/24 insulin glargine 100 unit/mL 30 unit SQ BID 09/11/24 09/23/24 subcutaneous solution metformin 500 mg tablet 1,000 mg PO BID 09/11/24 09/23/24 Previous Rx's ?Medication ?Instructions ?Recorded rivaroxaban 2.5 mg tablet (Xarelto) 2.5 mg PO BID #60 tabs 07/18/24 duloxetine 30 mg capsule,delayed 30 mg PO DAILY #90 caps 08/09/24 release duloxetine 60 mg capsule,delayed 60 mg PO DAILY #90 caps 08/09/24 release fluoxetine 40 mg capsule 40 mg PO DAILY #90 caps 08/09/24 lumateperone 42 mg capsule 42 mg PO DAILY #90 caps 08/09/24 (Caplyta) DAPTOmycin [Cubicin 500mg vial] 100 mls/hr IV Q24H Infection 09/13/24 1,000 mg levofloxacin 500 mg/100 mL in 5 % 500 mg IV Q24H 09/13/24 dextrose intravenous piggyback tramadol 50 mg tablet 50 mg PO Q8H PRN pain #20 tabs 09/13/24 nitroglycerin 0.4 mg/hr 1 patch transdermal DAILY 30 days 09/23/24 transdermal 24 hour patch #30 ea (Nitro-Dur) Allergies Allergy/AdvReac Type Severity Reaction Status Date / Time No Known Allergies Allergy Verified 09/23/24 11:36 [facility] Disclaimer: The information contained in this section may have been updated after the patient was seen, as this information can be updated by other users. 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 Currently on second-generation antipsychotic Surgical History History of amputation of toe History of tonsillectomy and adenoidectomy History of skin graft History of lumpectomy of left breast History of cholecystectomy History of lumpectomy of left breast History of carpal tunnel surgery of left wrist Hx of cholecystectomy Family History Other Cancer Coronary artery disease Diabetes Hyperlipidemia Hypertension Stroke Social History Smoking Status: Never smoker alcohol intake: never substance use type: denies use current occupational status: disabled Travel in the last 8 weeks: None household members: spouse housing: house number of children: 0 current occupational exposures/hazards: No caffeine: Yes Have you lived/traveled outside [place] in past 30 days?: No Contact w/someone who lives/traveled outside US past 30 days?: No Exposure to someone with infectious disease in past 14 days?: No Do you have a fever (greater than 100.4 F or 38 C)?: No Have you tested positive for COVID-19: No Exposed to someone with COVID-19 in past 14 days?: No Do you have a sore throat?: No Do you have a cough?: No Do you have any weakness?: No Do you have any diarrhea?: No Are you experiencing any unusual bleeding?: No Do you have any muscle aches/pain?: No Do you have any abdominal pain?: No Are you experiencing loss of taste or smell?: No Other Medical History Have you received the Flu Vaccine for this season: No Have you received the Pneumonia Vaccine: No ROS Obtained: Yes All systems reviewed & no additional complaints except as documented Physical Exam General General appearance: alert and obese Head Head exam: atraumatic and normocephalic Eye Eye exam: Present normal appearance, PERRL and EOMI Neck Neck exam: Present normal inspection, full ROM and trachea midline Respiratory Respiratory exam: Absent respiratory distress, wheezes, stridor, accessory muscle use or prolonged expiratory phase Cardiovascular Cardiovascular exam: Present other (Pulses equal symmetric in upper and lower extremities) Abdominal Exam Abdominal exam: Present soft; Absent distention, tenderness or pulsatile mass Extremities Exam Extremities exam: Present edema and other (Per MDM) Neurological Exam Neurological exam: Present alert, oriented X3 and CN II-XII intact; Absent motor sensory deficit Skin Skin exam: Present warm and dry; Absent diaphoresis or erythema Medical Decision Making Medical Records Medical records reviewed: Yes I reviewed the patient's medical records. Screening: Per USPSTF and CDC recommendations, given the prevalence of disease in our region, it is our hospital?s policy to screen for HIV and viral Hepatitis for all patients aged 18 and over and those with ongoing risk factors. Gunner Inquiry Pt receiving controlled substance: No Gunner was queried for this patient: No Vital Signs: 09/25/24 11:09 09/25/24 13:10 09/25/24 13:30 Temperature 98.7 F Temperature Source Oral Pulse Rate 78 68 Pulse Rate [Right] 77 Respiratory Rate 16 Blood Pressure 159/77 H 141/72 H Blood Pressure [Right Arm] 129/60 Blood Pressure Mean [Right Arm] 83 Blood Pressure Source [Right Arm] Automatic Cuff Blood Pressure Position [Right Arm] Sitting 02 Sat by Pulse Oximetry 96 98 95 Oxygen Delivery Method Room Air Room Air 09/25/24 14:00 Temperature Temperature Source Pulse Rate 71 Pulse Rate [Right] Respiratory Rate Blood Pressure 137/71 Blood Pressure [Right Arm] Blood Pressure Mean [Right Arm] Blood Pressure Source [Right Arm] Blood Pressure Position [Right Arm] 02 Sat by Pulse Oximetry 96 Oxygen Delivery Method Lab Data Lab Results 09/25/24 11:56: WBC 11.8 H, RBC 3.12 L, Hgb 8.9 L, Hct 27.8 L, MCV 89.1, MCH 28.5, MCHC 32.0, RDW 13.5, Plt Count 259, MPV 10.9 H, Neut % (Auto) 70.9, Lymph % (Auto) 15.4, [place] % (Auto) 5.9, Eos % (Auto) 6.6, Baso % (Auto) 0.5, Neut # (Auto) 8.4 H, Lymph # (Auto) 1.8, [place] # (Auto) 0.7, Eos # (Auto) 0.8 H, Baso # (Auto) 0.1, Sodium 139, Potassium 4.2, Chloride 103, Carbon Dioxide 26, Anion Gap 14.2, BUN 23 H, Creatinine 0.60, Estimated Creat Clear 92, Estimated GFR 100, Est GFR ( Amer) 121, Glucose 63 L, Lactate 1.5, Calcium 9.3, Total Bilirubin 0.4, AST 112 H, ALT 16 D, Alkaline Phosphatase 44, Total Creatine Kinase 1153 H*, Total Protein 6.6, Albumin 3.6, Globulin 3.0, Albumin/Globulin Ratio 1.2 09/25/24 11:59: VBG pH 7.44 H, VBG pCO2 37.9, VBG pO2 43.7 H, VBG HCO3 25.2, VBG Total CO2 26.4, VBG O2 Saturation 78.5 H, VBG Base Excess 1.1, VBG Lactic Acid 1.9 09/25/24 12:32: PT 13.7 H, INR 1.25 H, APTT 40.8 H 09/25/24 11:56 09/25/24 11:56 Orders (Tests/Meds): ED MEDICATIONS Discontinued Medications Generic Name Dose Route Start Last Admin Trade Name Freq PRN Reason Stop Dose Admin Iopamidol 75 ml 09/25/24 12:06 09/25/24 12:06 Iopamidol-370 (76%);100ml Bottle IV 09/25/24 12:07 75 ml ONCE ONE Administration Sodium Chloride 10 ml 09/25/24 12:06 09/25/24 12:06 Sodium Chloride 0.9% 10ml Syr (Rad Only) IV 09/25/24 12:07 10 ml ONCE ONE Administration ORDERS Category Date Time Status CT Tib/Fib RT w con Stat Cat Scan 09/25/24 11:52 Completed CK [Creatine Kinase] Stat Lab 09/25/24 11:56 Completed Complete Blood Count Auto Diff Stat Lab 09/25/24 11:56 Completed Comprehensive Metabolic Panel Stat Lab 09/25/24 11:56 Completed Lactic Acid Stat Lab 09/25/24 11:56 Completed PT INR [Prothrombin Time INR] Stat Lab 09/25/24 12:32 Completed PTT [Activated Partial Thrombo Time] Stat Lab 09/25/24 12:32 Completed Blood Culture Stat Micro 09/25/24 12:52 Received Venous Blood Gas Stat RT 09/25/24 11:59 Completed Medical Decision Narrative: 64-year-old female history of hypertension, hyperlipidemia, Parkinson's disease, PAD on Xarelto, diabetes status post right foot partial amputation presenting with swelling. States that she has been following with podiatry and 2 weeks ago had all of her digits amputated on the right foot. Has been on daily daptomycin and floxacillin for coverage via PICC line. Patient started having swelling going up her foot to her mid calf with associated redness and swelling. No systemic signs or symptoms. Came in for further evaluation. History was obtained via conversation with patient and . On arrival, patient hemodynamically stable, alert, oriented x4, appropriate, GCS 15, moving all extremities spontaneously, pupils equal and reactive to light. Full physical exam performed and significant for chronically ill-appearing female who is in no acute distress. Speaking full sentences. Does not appear to be tender. After taking down bandage to the right lower extremity, she has necrotic tissue on the ventral aspect of her foot that has reji in place. No stefan purulence. She also has serosanguineous drainage with multiple ulcers lateral aspect of her foot as well as the plantar surface of her foot. Pitting edema extending up the leg primarily posteriorly with associated erythema. Differential includes necrotizing soft tissue infection, cellulitis, abscess, myositis, DVT, compartment syndrome, among others. Patient placed on continuous cardiac monitoring and continuous pulse ox with initial blood pressure 129/60, heart rate 77, saturation 96% on room air. Patient was given clindamycin for symptomatic management and correction of underlying abnormalities for coverage of toxin mediated process as well as anaerobes, since patient already had daptomycin for MRSA coverage as well as levofloxacin for gram-negative. Workup independently interpreted and significant for leukocytosis of 11.8. Neutrophilic. Patient's coag's with mildly elevated INR 1.25 and PTT elevated at 41 seconds. VBG nonactionable with normal pH, normal CO2 and bicarb. Negative lactate 1.9. Chemistry nonactionable with normal sodium. Patient's CK elevated at 1100. On independent interpretation of imaging, patient has gas in the foot as well as soft tissue edema, cellulitis and what appears to be edematous myositis in the posterior compartment of the right lower extremity. [facility] was contacted and case was discussed at length out of concern for necrotizing soft tissue infection, developing compartment syndrome, and need for emergent intervention. Graciously accepted for transfer. Given patient presentation, workup, history, this most likely represents excising soft tissue infection, myositis versus compartment syndrome. Because patient high risk for clinical decompensation if discharged, deemed appropriate for transfer and inpatient admission. Results were relayed to patient who voiced understanding and patient was agreeable to transfer, inpatient admission, and management. Patient was graciously accepted and transferred to [facility] for further definitive management, under Dr. Waters. Assisted Living Manager disclaimer Much of this encounter note is an electronic car rental sales assistant spoken language to printed text. Electronic car rental sales assistant of the spoken language may permit errors. Although I have reviewed the note, some errors may still exist. Critical Care Critical Care Time Critical Care Time: Yes (wilbur, ID) Attestation: On 09/25/24, the high probability of a clinically significant, sudden or life threatening deterioration of the following system(s) required my full and direct attention, intervention and personal management. The time I documented below is in addition to time spent performing reported procedures but includes the following listed in this critical care notation. Total Time Total Critical Care Time: 60
[2024-09-25 12:54] LABS: Activated Partial Thrombo Time 40.8 seconds (22.8-30.6)
[2024-09-25 12:55] LABS: INR 1.25 (0.9-1.1); Prothrombin Time 13.7 seconds (10.1-12.5)
[2024-09-25 13:35] LABS: Creatine Kinase 1153 U/L (30-135)
--- NOTE | 2024-09-25 13:44 | PC.NURSE ---
called [facility] per Dr Nicholson to speak with them for possible transfer of this pt
--- NOTE | 2024-09-25 13:47 | PC.NURSE ---
images were powered shared. [facility] will call us back.
--- NOTE | 2024-09-25 14:11 | PC.NURSE ---
called back. Dr Waters is talking with Dr Nicholson at this time. Vascular surgery at has accepted
[2024-09-25] MEDS: CLINDAMYCIN PHOSPHATE/D5W 900 MG/50 ML PIGGYBACK 100 MG IV (14:17)
--- NOTE | 2024-09-25 14:19 | PC.NURSE ---
report called to brian at [facility]
--- NOTE | 2024-09-25 14:29 | PC.NURSE ---
call made to [facility], spoke with enrico about pt transport. enrico reports that the other truck is taking a pt to [facility]. when they get back someone will be up here to transfer pt.
== END 2024-09-25 16:34 | disposition short-term general hospital (02) ==
PROVIDERS: Emergency Provider Emergency Medicine; PCP Family Medicine
DX: M72.6 Necrotizing fasciitis (principal)
CPT/HCPCS: 36415; 73701; 80053; 82550; 82803; 83605; 85025; 85610; 85730; 87040; 99285; J0736; Q9967

== ENCOUNTER 2024-10-20 08:19 | Observation (INO) | payer MEDICARE, OTHER, SELFPAY ==
[2024-10-20] VITALS (7 sets, daily range): BP systolic 129–139; BP diastolic 55–87; PULSE 63–69; RESP 15–20; TEMP 36.8–37.2; O2SAT 96–99; BMI 37.1; BMI 35.1
--- OUTSIDE RECORDS SUMMARY | 2024-10-20 08:29 | XMS_ITS | Data Portability ---
Author Organization [facility] KERRIE Doss QUINTER CLOSED Address [address] [place] [address] [address] [place] [address] Care Team Providers Care Process Controls Technician Name Role Phone NIURKA JONES Referring Provider Assessment No assessment recorded. Plan of Treatment Reminders Order Date Submit Date Provider Last Modified By Organization Details Last Modified Time Details Appointments RECHECK 2024 10:30A Orquidea WARE DRAGLINE MECHANIC Not available Not available Not available Lab glucose, fingerst ick, blood [address] Endocrinology , [address] [place] [address], [phone], 08/12/2024 11:58:18 hemoglob in A1C, fingerst ick [address] Endocrinology , [address] [place] [address], [phone], 08/12/2024 11:58:18 glucose, fingerst ick, blood [address] Endocrinology , [address] [place] [address], [phone], 01/31/2024 14:05:00 hemoglob in A1C, fingerst ick [address], [address] [place] [address], [phone], 01/31/2024 14:05:01 Referral None recorded . Procedures None recorded . Surgeries None recorded . Imaging None recorded . Medication Orders Lantus Solostar U-100 Insulin 100 unit/mL (3 mL) subcutan eous pen 2024 025 [email or web address], [address] [place] [address], [address], 08/12/2024 11:58:17 metformi n 500 mg tablet 2024 025 [email or web address], [address] [place] [address], [address], 08/12/2024 11:58:17 Novolog FlexPen U-100 Insulin aspart 100 unit/mL (3 mL) subcutan eous 2024 025 [email or web address], [address] [place] [address], [address], 08/12/2024 11:58:17 Rybelsus 7 mg tablet 2024 025 [email or web address], [address] [place] [address], [address], 08/12/2024 11:58:17 Lantus Solostar U-100 Insulin 100 unit/mL (3 mL) subcutan eous pen 2023 024 [id number] [facility], [address] [place] [address], [address], 02/20/2024 19:21:58 metformi n 500 mg tablet 2023 024 JOY [facility], [address] [place] [address], [address], 01/31/2024 14:04:59 Novolog FlexPen U-100 Insulin aspart 100 unit/mL (3 mL) subcutan eous 2023 024 JOY [facility], [address] [place] [address], [address], 01/31/2024 14:05:00 Rybelsus 7 mg tablet 2023 024 JOY [facility], [address] [place] [address], [place], [address], 01/31/2024 14:04:59 Patient TargetsNo targets recorded. Patient Instructions Encounter Date Encounter Id Patient Instructions Last Modified By Organization Details Last Modified Time 01/31/2024 [id number] diabetic eye exam* - please send most recent eye exam [email or web address] Not available 02/16/2024 08:58:56 08/12/2024 [id number] diabetic eye exam* - please send most recent eye exam JOY Not available 10/17/2024 04:59:42 Reason for Referral None Reported. Results Created Date Observation Date Name Description Value Unit Range Abnormal Flag Note LastModifiedBy Organization Detail LastModifiedTime 01/31/20 24 01/31/2024 hemog lobin A1C, finge rstic k hemoglobin A1C % 6.9 % 4.0 - 5.6 Not Available [facility] Endocrinology [address], [address], 01/31/2024 11:18:08 01/31/20 24 01/31/2024 gluco se, finge rstic k, blood glucose, fingerstick 245 mg/dL 70 - 100 Not Available [facility] Endocrinology [address], [address], 01/31/2024 11:13:27 08/12/19 25 08/12/2024 hemog lobin A1C, finge rstic k hemoglobin A1C % 6.9 % 4.0 - 5.6 Not Available [facility] Endocrinology [address], [address], 08/12/2024 08:33:19 08/12/19 25 08/12/2024 gluco se, finge rstic k, blood glucose, fingerstick 177 mg/dL 70 - 100 Not Available [facility] Endocrinology [address], [address], 08/12/2024 08:33:18 Result Notes None recorded. Medical [...] Address Organization Details Last Updated DateTime 01/31/2024 119744.5 g 95 /min 126 mm[Hg] 74 mm[Hg] [facility] 01/31/2024 11:12:03 Date Recorded Body weight Heart rate Systolic blood pressure Diastolic blood pressure Provider Name and Address Organization Details Last Updated DateTime 08/12/2024 444849.98 g 77 /min 134 mm[Hg] 74 mm[Hg] [facility] 08/12/2024 11:26:24 Social History None recorded. Functional Status None recorded. Mental Status None recorded. Family History Nothing Reported. Medical History No medical history recorded. Gynecological HistoryNo gynecological history recorded. Obstetrics History GPAL:G 0 P 0 0 0 0 Past Encounters Encounter ID Performer Location Encounter Start Date Encounter Closed Date Diagnosis/Indication Diagnosis SNOMED-CT Code Diagnosis ICD10 Code Diagnosis Note [id number] ELAINA WARE, [place] END[facility] [address] [place] [address] 01/31/2024 09:52:57 01/31/2024 11:46:40 Uncontrolled type 2 diabetes mellitus 226889161 E11.65 Z79.4 A1c 6.9%Random Glucose:24 5 CGM [...] Sign up for the patient portal: [email or web address] al.[email or web address] solar systems.[email or web address]/ [id number] ELAINA VALENCIA CLICK, DRAGLINE MECHANIC ENDOCRINO [facility] [address] [place] [address] 08/12/2024 11:00:23 08/12/2024 11:47:02 Uncontrolled type 2 diabetes mellitus 545531515 E11.65 Z79.4 A1c 6.9% no change 6.9%Random Glucose: 177 Increase Lantus 30units BIDContinu e Samuizj993 -200 4pddqw768- 250 5poxbv829- 300 6 mpafv761-9 50 8 -8 00 94mwvoy553 -450 12 unitsConti nue Metformin 500mg take [...] t. Sign up for the patient portal: [email or web address]/ Long-term current use of oral hypoglycemic medication [id number] 04176 Z79.84 Health Concerns Section Related Observation LastModified by Organization Detai ls LastModified Time None Recorded Concern Status LastModified by Organization Details LastModified Time None Recorded Advance Directives Directive None Recorded Payers Encounter Date Sequence Insurance Name Policy Number Policy Finn Covered Member ID Finn Member ID Guarantor Name 01/31/2024 1 [place] Emiliana Painter [id number] Emiliana Painter 01/31/2024 2 WPS - FOR LIFE (MEDICARE SUPPLEMENT) Emiliana Painter [id number] Emiliana Painter 08/12/2024 1 [place] Emiliana Painter [id number] Emiliana Painter 08/12/2024 2 WPS - FOR LIFE (MEDICARE SUPPLEMENT) Emiliana Painter [id number] Emiliana Painter Notes Date Note Type Note [...] on: {{Yes* No}}lisinopril Hyperlipidemia: {{Yes* No}}atorvastat in [facility] ANNIEKULDIP WARE, DRAGLINE MECHANIC [address] [place], [address], [facility] 01/31/2024 14:08:06 08/12/2024 text/html Mrs. 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 SHe has been home for 3 weeks. Current Treatment Regimen:Lantus 20 units BIDNovolog SDY095-025 0ftqdh688-429 5pyjhd244-765 6 -402 8 -441 87plvfi135-675 12 unitsMetformin 500mg take 2 tabs BIDrybelsus [...] Hyperlipidemia: {{Yes* No}}atorvastat in ELAINA ANNIE JEANIE, DRAGLINE MECHANIC [address] [place], [address], [facility] 08/12/2024 12:01:20 OBGyn Episode No OBEpisode recorded.
--- OUTSIDE RECORDS SUMMARY | 2024-10-20 08:29 | XMS_ITS | Summary of Care ---
Author Organization [facility] Address [address] [place] [address]- Care Team Providers Care Spray Operator Name Role Phone Robert LACEY, Ricky Veliz Primary Care Physician Unav ailable Encounter 10/02/24 - 10/17/[facility] [address] [place] [phone] Discharge Disposition: 06H Home with Home Health Care Attending Physician: Roberto LACEY, Sridhar Admitting Physician: Roberto LACEY, [facility] Referring Physician: Xavi Nicholson MD Allergies, Adverse Reactions, Alerts Substance Criticality Severity Reaction Reaction Severity Status No Known Allergies A ctive Assessment and Plan Extracted from: Title: PM&R Discharge Summary Author:Yves Hudson Date:10/17/24 Patient: EMILIANA BRIDGES Age: 64 years Sex: Female : 1960 Associated Diagnoses: None Author: Yves Case PM&R Discharge Summary Date of Admission: 10/02/24 Date of Discharge: 10/17/24 Service Attending: Dr. Mejia Discharge Attending: Dr. Mejia Service Resident: Dr. Parekh Admission Diagnosis: Functional decline due to right transmetatarsal amputation Admission HPI: History of Present Illness: Emiliana Bridges is a 64 y.o. female w/PMH of hypertension, hyperlipidemia, type 2 diabetes, breast cancer, Parkinson's disease, peripheral arterial disease status post right D4-5 amputation last May and most recently right TMA two weeks ago who presented to on 09/25/2024 (LOS: 5d) with worsening erythema at stump site. Of note, she has been on dapto/levaquin. She ultimately underwent R BKA on 09/27/24. Patient was medically stabilized on the acute care floor. Patient was evaluated by PT/OT and deemed appropriate for acute rehab. Also, PMR was consulted for functional evaluation. Patient was seen seated in bedside chair. Patient noted that she is looking forward to transferring to acute rehab to help increase her current level of function. Patient noted that her will be around to help with the acute rehab process as well as postdischarge planning. No other concerns at this time. PMH: ? ? Breast cancer (CMS/HCC) ? ? PAD (peripheral artery disease) (CMS/HCC) ? ? Parkinson disease (CMS/HCC) ? ? Personal history of irradiation ? ? Type 2 diabetes mellitus with ketoacidosis without coma (CMS/HCC) DKA (diabetic ketoacidoses) ? ? Unsteadiness on feet Gait instability PSH: ? ? BREAST BIOPSY Right 03/2014 core needle biopsy ? ? BREAST BIOPSY Left 03/2014 ? ? BREAST LUMPECTOMY Left 05/2014 Lumpectomy of left breast from [facility] ? ? FOOT AMPUTATION THROUGH METATARSAL Right ? ? TOE AMPUTATION Allergies: NKA Family hx: Reviewed with patient, noncontributory to above-mentioned diagnosis. 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 They were evaluated by PT, OT, and speech. Pt participated and tolerated an average of 3 hours of therapy a day, 5 days a week and made appropriate progress throughout their acute rehabilitation hospital stay. Medical conditions during the rehabilitation stay were addressed as followed below. Rehabilitation of functional impairment: - Completed comprehensive acute inpatient rehabilitation - PT worked on posture/stability, core strengthening and stabilization, gait training, community mobility, balance and positioning, coordination and fine motor control - OT worked on home safety, cognition and memory strategies, core strengthening and stabilization, balance and positioning, functional range of motion, coordination, equipment assessment and training, functional/ADL training including upper and lower body dressing, eating, grooming, toileting - BOILER MAKER worked on, cognition and memory strategies as indicated - Rehab nursing worked on self care, medication management and teaching (including pain management), patient mobilization, and safety training - Recommend continuing therapeutic exercises as indicated Medical Hospital Course: Necrotizing soft tissue infection Peripheral artery disease ? right D4-5 amputation last May and most recently right TMA on 08/2024, was previously on 3 IV Abx prior to admission ? R BKA on 09/[address] Villeda - Apply ROOKE brace to amputated lower extremity to prevent knee contracture; use waist belt attachment connected to ROOKE if mobilizing out of bed. Remove ROOKE during skin assessments and assess for ROOKE proper positioning during hourly rounding. Knee should be centered in the ROOKE window under detachable Velcro knee piece labeled GENTLE in orange writing. No pillows under ROOKE brace or hip. ? During admission wound care team comanaged wound ? Follow-up with vascular surgery as listed below Parkinson's disease ? Continue home Sinemet CR 50/200, 3 times daily Uncontrolled type 2 diabetes with hyperglycemia ? Most recent A1c 5.9% ? During admission often did not require SSI for BG control. ? Plan to restart home Semaglutide on d/c Chronic conditions: Obesity Class 3(BMI 39.87) with hyperglycemia: Complicates care HLD: Continue home statin and fenofibrate HTN: Continue home lisinopril and metoprolol Anxiety/Depression ? Continue home duloxetine and fluoxetine ? Consult counselor History of malignant neoplasm of left breast (ER positive) ? Complicates care Patient noted to be medically stable on the day of discharge. Physical Exam: Vital Signs (last 24 hrs) Last Charted Temp Oral 98.7 DegF (OCT 17 07:40) Heart Rate Peripheral 77 bpm (OCT 17:41) Resp Rate 18 br/min (OCT 17:40) SBP H 145mmHg (OCT 17:40) DBP 80 mmHg (OCT 17:40) SpO2 97 % (OCT 17:41) Gen: NAD, sitting in WC Eyes: no scleral icterus, pupils symmetric ENT: mucous membranes moist, nares patent CV: regular rate, no BLE edema Resp: CTA b/l, nonlabored GI: soft, NTTP, +BS, -r/g : no shah cath device in place MSK: R BKA, tremor noted in bilateral upper extremities, R BKA in [place], surgical incision w/ reji c/d/i Neuro: awake and alert, participating in conversation Psych: pleasant and cooperative Labs: Labs (Last four charted values) WBC 7.9 (OCT 14) 7.5 (OCT 10) 9.0 (OCT 07) 9.1 (OCT 04) Hgb L 9.8 (OCT 14) L 8.4 (OCT 10) L 8.3 (OCT 07) L 7.9 (OCT 04) Hct L 31.2 (OCT 14) L 26.4 (OCT 10) L 25.8 (OCT 07) L 24.8 (OCT 04) Plt 324 (OCT 14) 274 (OCT 10) 297 (OCT 07) 319 (OCT 04) Na 137.0 (OCT 14) 139.0 (OCT 10) 136.0 (OCT 07) 140.0 (OCT 04) K 4.1 (OCT 14) 4.3 (OCT 11) H 4.7 (OCT 10) 4.2 (OCT 07) CO2 28.0 (OCT 14) 27.0 (OCT 10) 28.0 (OCT 07) 29.0 (OCT 04) Cl 103.0 (OCT 14) 104.0 (OCT 10) 101.0 (OCT 07) 104.0 (OCT 04) Cr L 0.50 (OCT 14) L 0.50 (OCT 10) L 0.50 (OCT 07) L 0.50 (OCT 04) BUN 20.0 (OCT 14) H 26.0 (OCT 10) H 25.0 (OCT 07) 22.0 (OCT 04) Glucose 115 (OCT 17) 164 (OCT 16) H 189 (OCT 16) 134 (OCT 16) Mg L 1.4 (OCT 03) Phos L 3.2 (OCT 03) Ca 9.6 (OCT 14) 9.1 (OCT 10) 9.1 (OCT 07) 9.2 (OCT 04) TBil 0.4 (OCT 14) 0.4 (OCT 10) 0.4 (OCT 07) 0.3 (OCT 04) Alb 3.9 (OCT 14) 3.5 (OCT 10) 3.5 (OCT 07) L 3.3 (OCT 04) TProt 7.7 (OCT 14) 7.0 (OCT 10) 7.2 (OCT 07) 6.7 (OCT 04) ALP 74.0 (OCT 14) 51.0 (OCT 10) 45.0 (OCT 07) 47.0 (OCT 04) ALT L 2.0 (OCT 14) L 3.0 (OCT 10) L 4.0 (OCT 07) L 4.0 (OCT 04) AST 14.0 (OCT 14) 15.0 (OCT 10) 13.0 (OCT 07) 21.0 (OCT 04) Functional Status on Admission: Prior Level of Function Ambulation: Independent Ambulation Comment: Ambulatory household only, independent gait without device. 6 falls in the last 3 months ADL's: Contact Guard ADL's Comment: assists to get shoes on and home management skills Prior Cognitive Status: Independent Prior Physical Level of Activity: Mod Active Current Level of Function Bed Mobility: Minimal Assistance Bed Mobility Comments: 09/30/24- CGA for scooting/bridging with bed rails; min assist for supine to sit with bed rails and cues Transfers: Moderate Assistance Transfer Comments: 09/30/24- mod assist using rolling walker and assist x 2 for sit to stand, stand to sit, and bed to chair Ambulation Comments: Unable to progress to ambulation due to poor dynamic balance and increased physical assistance required Basic ADL's: Minimal Assistance Basic ADL Comments: 09/30/24- min assist for grooming at EOB to open containers Dressing Comments: Not evaluated this stay From a functional perspective, patient with improvement in GG scores as follows: Functional Status at Discharge: Mobility Functional Status [id number] Lying to Sitting Side of Bed Goal: Supervision or touching assistance - 04 (10/16/24) [id number] Sit to Stand: Partial/Moderate assistance - 03 (10/16/24) [id number] Chair,Bed to Chair Transfer: Supervision or touching assistance - 04 (10/16/24) [id number] Walk 10 Feet: Not attempted due to medical condition or safety concerns - 88 (10/16/24) [id number] Walk 50 Feet with Two Turns: Not applicable-09 (10/16/24) [id number] Walk 150 Feet: Not applicable-09 (10/16/24) ADL Status [id number] Eating: Independent - 06 (10/16/24) [id number] Oral Hygiene: Independent - 06 (10/15/24) [id number] Upper Body Dressing: Independent - (10/15/24) [id number] Lower Body Dressing: Partial/Moderate assistance - 03 (10/15/24) [id number] Toileting Hygiene: Dependent - (10/17/24) [id number] Toileting Hygiene: Dependent - (10/17/24) [id number] Toilet Transfer: Substantial/Maximal assistance - 02 (10/17/24) [id number] Toilet Transfer: Substantial/Maximal assistance - 02 (10/17/24) [id number] Shower, Bathe Self: Partial/Moderate assistance - 03 (10/15/24) Tub/Shower Transfer- OT: Not Amber (10/15/24) Speech/Language & Cognition Functional Status Comprehension Mode Functional Status: Auditory, Visual (10/02/24) Ability to Hear: Minimal difficulty - difficulty in some environments (e.g. when a person speaks softly or setting is noisy) (10/03/24) Visual Acuity: Adequate - sees fine detail, such as regular print in newspapers/books (10/03/24) Health Literacy SILS: Never (10/16/24) [id number] Expression of Ideas and Wants: Expresses complex messages without difficulty and with speech that is clear and easy to understand - 4 (10/16/24) [id number] Understanding Verbal Content: Understands - Clear comprehension without cues or repetitions - 4 (10/16/24) Expression Mode Functional Status: Vocal (10/02/24) Person Orientation IP: Independent (10/15/24) Place Orientation IP: Independent (10/15/24) Time Orientation IP: Independent (10/15/24) Situation Orientation IP: Independent (10/15/24) Biographical Information Orientation IP: Independent (10/15/24) Attention Functional Status - OT: Usually Independent (10/15/24) Attention Functional Status - BOILER MAKER: Usually Independent (10/16/24) Memory Functional Status - OT IP: Usually Independent (10/15/24) Memory Functional Status - BOILER MAKER IP: Independent (10/16/24) Safety Awareness/Insight - OT: Sometimes Independent (10/15/24) Safety Awareness/Insight - BOILER MAKER: Usually Independent (10/16/24) Simple Problem Solving Func Status OT: Usually Independent (10/15/24) Simple Problem Solving Func Status BOILER MAKER: Usually Independent (10/16/24) Complex Problem Solving Func Status OT: Sometimes Independent (10/15/24) Complex Problem Solving Func Status BOILER MAKER: Usually Independent (10/16/24) Discharge Medications: Home Medications (15) Active aspirin 81 mg oral delayed release tablet 81 mg = 1 tab, Oral, Daily atorvastatin 20 mg oral tablet 20 mg = 1 tab, Oral, QHS carbidopa-levodopa 50 mg-200 mg oral tablet, extended release 2 tab, Oral, TID DULoxetine 30 mg oral delayed release capsule 90 mg = 3 cap, Oral, Daily fenofibrate 145 mg oral tablet 145 mg = 1 tab, Oral, Daily FLUoxetine 20 mg oral capsule 40 mg = 2 cap, Oral, Daily gabapentin 300 mg oral capsule 300 mg = 1 cap, Oral, TID insulin glargine 100 units/mL subcutaneous solution 30 units, Subcutaneous, QHS lisinopril 20 mg oral tablet 20 mg = 1 tab, Oral, Daily magnesium gluconate 500 mg oral tablet 500 mg = 1 tab, Oral, Daily metFORMIN 500 mg oral tablet 1,000 mg = 2 tab, Oral, BIDmeals metoprolol succinate 25 mg oral tablet, extended release 50 mg = 2 tab, Oral, Daily NovoLOG FlexPen 100 units/mL injectable solution Sliding Scale, Subcutaneous, WMHS Rybelsus 7 mg oral tablet 7 mg = 1 tab, Oral, Daily Xarelto 2.5 mg oral tablet 2.5 mg = 1 tab, Oral, BIDmeals Discharge Precautions: - Patient was prescribed a month of medication scripts and will need to f/u with PCP for further medication prescriptions. - Patient instructed not to drive until evaluated and cleared by a physician. Discharge Status: Improved Discharge Disposition: Home Therapies on discharge: [facility] Follow up: 11/12/2024 1:00 PM Carmelina Villeda MD [facility] Follow up with Dr. Mejia in 4-6 weeks. Please CC to above providers. HIM: Please cc providers listed above. Addendum by Roberto LACEY, Sean aguilar on October 17, 2024 09:28 EDT I personally interviewed and examined th is patient with the resident on day of discharge. Agree with resident documentation above. Discharge information and restrictions were discussed and all questions and concerns were addressed. Spent over 30 minutes coordinating discharge with case management, counseling patient and family, communicating with other physicians, and preparing discharge medications. Medications aspirin 81 mg oral delayed release tablet 81 mg, = 1 tab, Indication: Angina Tab-EC, Oral, Daily, 30 tab, 0 Refill(s), Route to Pharmacy Electronically, [facility], [facility], 10/14/24 11:58:00 EDT, Height/Length Dosing, cm, 103.1, 10/09/24 6:07:00 EDT, Weight Dosing, kg Start Date: 10/15/24 Status: Ordered atorvastatin 20 mg oral tablet 20 mg = 1 tab, Tab, Oral, QHS, 30 tab, 0 Refill(s), Route to Pharmacy Electronically, [facility], 168, 10/14/24 11:58:00 EDT, Height/Length Dosing, cm, 103.1, 10/09/24 6:07:00 EDT,Weight Dosing, kg Start Date: 10/15/24 Status: Ordered carbidopa-levodopa 50 mg-200 mg oral tablet, extended release 2 tab, Tab-ER, Oral, TID, 180 tab, 0 Refill(s), Route to Pharmacy Electronically, [facility], 168, 10/14/24 11:58:00 EDT, Height/Length Dosing, cm, 103.1, 10/09/24 6:07:00 EDT, Weight Dosing, kg Start Date: 10/15/24 Status: Ordered DULoxetine 30 mg oral delayed release capsule 90 mg = 3 cap, Cap-DR, Oral, Daily, 90 cap, 0 Refill(s), Route to Pharmacy Electronically, [facility], 168, 10/14/24 11:58:00 EDT, Height/Length Dosing, cm, 103.1, 10/09/24 6:07:00EDT, Weight Dosing, kg Start Date: 10/15/24 Status: Ordered fenofibrate 145 mg oral tablet 145 mg, 1 tab, Tab, Oral, Daily, 30 tab, 0 Refill(s), Route to Pharmacy Electronically, [facility], 168, 10/14/24 11:58:00 EDT, Height/Length Dosing, cm, 103.1, 10/09/24 6:07:00 EDT, Weight Dosing, kg Start Date: 10/15/24 Status: Ordered FLUoxetine 20 mg oral capsule 40 mg = 2 cap, Cap, Oral, Daily, 60 cap, 0 Refill(s), Route to Pharmacy Electronically, [facility], 168, 10/14/24 11:58:00 EDT, Height/Length Dosing, cm, 103.1, 10/09/24 6:07:00 EDT, Weight Dosing, kg Start Date: 10/15/24 Status: Ordered gabapentin 300 mg oral capsule 300 mg, = 1 cap, Indication: Diabetic Peripheral Neuropathy Cap, Oral, TID, 90 cap, 0 Refill(s), Route to Pharmacy Electronically, [facility], 168, 10/14/24 11:58:00 EDT, Height/Length Dosing, cm, 103.1, 10/09/24 6:07:00 EDT, Weight Dosing, kg Start Date: 10/15/24 Status: Ordered insulin glargine 100 units/mL subcutaneous solution 30 units, Indication: Hyperglycemia Injection-Insulin (soln), Subcutaneous, QHS, 15 mL, 0 Refill(s), Route to Pharmacy Electronically, [facility], 168, 10/14/24 11:58:00 EDT, Height/Length Dosing, cm, 103.1, 10/09/24 6:07:00 EDT, Weight Dosing, kg Start Date: 10/15/24 Status: Ordered insulin glargine 100 units/mL subcutaneous solution 30 units = 0.3 mL, Indication Hyperglycemia, Injection-Insulin (soln), Subcutaneous, Start date 10/03/24 8:00:00 PM CDT Start Date: 10/03/24 Stop Date: 10/03/24 Status: Completed insulin glargine 100 units/mL subcutaneous solution 30 units = 0.3 mL, Indication Hyperglycemia, Injection-Insulin (soln), Subcutaneous, Start date 10/12/24 8:00:00 PM CDT Start Date: 10/12/24 Stop Date: 10/12/24 Status: Completed lisinopril 20 mg oral tablet 20 mg = 1 tab, Tab, Oral, Daily, 30 tab, 0 Refill(s), Route to Pharmacy Electronically, [facility], 168, 10/14/24 11:58:00 EDT, Height/Length Dosing, cm, 103.1, 10/09/24 6:07:00 EDT, Weight Dosing, kg Start Date: 10/15/24 Status: Ordered magnesium gluconate 500 mg oral tablet 500 mg = 1 tab, Tab, Oral, Daily, 30 tab, 0 Refill(s), Route to Pharmacy Electronically, [facility], 168, 10/14/24 11:58:00 EDT, Height/Length Dosing, cm, 103.1, 10/09/24 6:07:00 EDT, Weight Dosing, kg Start Date: 10/15/24 Status: Ordered metFORMIN 500 mg oral tablet 1,000 mg, = 2 tab, Indication: Hyperglycemia Tab, Oral, BIDmeals, 120 tab, 0 Refill(s), Route to Pharmacy Electronically, [facility], 168, 10/14/24 11:58:00 EDT, Height/Length Dosing, cm, 103.1, 10/09/24 6:07:00 EDT, Weight Dosing, kg Start Date: 10/15/24 Status: Ordered metoprolol succinate 25 mg oral tablet, extended release 50 mg = 2 tab, Tab-ER, Oral, Daily, 60 tab, 0 Refill(s), Route to Pharmacy Electronically, [facility], 168, 10/14/24 11:58:00 EDT, Height/Length Dosing, cm, 103.1, 10/09/24 6:07:00EDT, Weight Dosing, kg Start Date: 10/15/24 Status: Ordered NovoLOG FlexPen 100 units/mL injectable solution Sliding Scale, Injection-Insulin (soln), Subcutaneous, WMHS, 0 Refill(s) Start Date: 10/03/24 Status: Ordered Rybelsus 7 mg oral tablet 7 mg, = 1 tab, Oral, Daily, 0 Refill(s) Start Date: 10/03/24 Status: Ordered Xarelto 2.5 mg oral tablet 2.5 mg, = 1 tab, Tab, Oral, BIDmeals, 60 tab, 0 Refill(s), Route to Pharmacy Electronically, [facility], 168, 10/14/24 11:58:00 EDT, Height/Length Dosing, cm, 103.1, Weight Dosing,10/09/24 6:07:00 EDT, kg, VTE - Prophylaxis Start Date: 10/15/24 Status: Ordered Problem List Condition Confirmation Course Effective Dates Status H ealth Status Informant At risk of venous thromboembolus 1 Confirmed 10/02/24 Active Impaired cognition Confirmed Active Impaired mobility Confirmed Active 1Problem added by Discern Expert Rule: [id number]_VTERISKPROB_3 Results Laboratory List Name Date Automated Diff HSL 10/17/24 Complete Blood Count w/Auto Diff HSL 10/01 01/24 Comprehensive Metabolic Panel HSL 5 Glucose, POC 10/17/24 Glucose, POC 10/16/24 Glucose, POC 10/16/24 Automated Diff HSL 10/14/24 C-Reactive Protein HSL (CRP HSL) 10/14/24 Complete Blood Count w/Auto Diff HSL 10/01 10/25 Comprehensive Metabolic Panel HSL 5 Potassium HSL 10/11/24 Automated Diff HSL 10/10/24 Complete Blood Count w/Auto Diff HSL 10/01 Comprehensive Metabolic Panel HSL 5 Blood Glucose Interventions 10/10/24 Automated Diff HSL 10/07/24 C-Reactive Protein HSL (CRP HSL) 10/07/24 Complete Blood Count w/Auto Diff HSL 10/07 C-Reactive Protein HSL (CRP HSL) 10/03/24 Magnesium HSL 10/03/24 Phosphorus HSL 10/03/24 Prealbumin HSL 10/03/24 Most recent to oldest [Reference Range]: 1 2 3 Creatinine Level 0.60 mg/dL (10/17/24 6:23 AM) 0.50 mg/dL *LOW* (10/14/24 7:17 AM) 0.50 mg/dL *LOW* (10/10/24 6:15 AM) Creatinine - UN 0.60 mg/dL (10/17/24 6:23 AM) 0.50 mg/dL *LOW* (10/14/24 7:17 AM) 0.50 mg/dL *LOW* (10/10/24 6:15 AM) Estimated Creatinine Clearance 52.79 mL/min 1 (10/17/24 6:23 AM) 52.79 mL/min 2 (10/16/24 6:25 AM) 52.79 mL/min 3 (10/14/24 2:35 PM) Glucose POC [70-180 mg/dL] 115 mg/dL (10/17/24 6:06 AM) 164 mg/dL (10/16/24 8:48 PM) 189 mg/dL *HI* (10/16/24 4:29 PM) Blood Glucose Interventions Administered 4 oz juice (10/10/24 6:02 AM) Blood Glucose Stick Site Finger (10/10/24 6:02 AM) Corrected WBC HSL [4-12 x10(3)/mcL] 7 x10(3)/mcL (10/17/24 6:23 AM) 8 x10(3)/mcL (10/10/24 6:15 AM) 9 x10(3)/mcL (10/07/24 8:30 AM) WBC HSL [4.4-11.6 10^3/uL] 7.0 10^3/uL (10/17/24 6:23 AM) 7.9 10^3/uL (10/14/24 7:17 AM) 7.5 10^3/uL (10/10/24 6:15 AM) RBC HSL [3.70-5.20 10^3/uL] 3.45 10^3/uL *LOW* (10/17/24 6:23 AM) RBC HSL [03.70-05.20 10^3/uL] 03.52 10^3/uL *LOW* (10/14/24 7:17 AM) 02.99 10^3/uL *LOW* (10/10/24 6:15 AM) Hemoglobin HSL [11.9-15.8 g/dL] 9.7 g/dL *LOW* (10/17/24 6:23 AM) 9.8 g/dL *LOW* (10/14/24 7:17 AM) 8.4 g/dL *LOW* (10/10/24 6:15 AM) Hematocrit HSL [34.9-46.1 %] 30.2 % *LOW* (10/17/24 6:23 AM) 31.2 % *LOW* (10/14/24 7:17 AM) 26.4 % *LOW* (10/10/24:15 AM) MCV HSL [78.5-102.3 fL] 87.5 fL (10/17/24:23 AM) 88.5 fL (10/14/24:17 AM) 88.1 fL (10/10/24 6:15 AM) MCH HSL [25.9-34.1 g/dL] 28.0 g/dL (10/17/24:23 AM) 27.9 g/dL (10/14/24 7:17 AM) 28.2 g/dL (10/10/24 6:15 AM) MCHC HSL [31.9-35.4 g/dL] 32.1 g/dL (10/17/24 6:23 AM) 31.5 g/dL *LOW* (10/14/24:17 AM) 32.0 g/dL (10/10/24 6:15 AM) Platelet HSL [149-451 10^3/uL] 283 10^3/uL (10/17/24:23 AM) 324 10^3/uL (10/14/24 7:17 AM) 274 10^3/uL (10/10/24 6:15 AM) RDW-CV% HSL [11.6-14.5 %] 16.7 % *HI* (10/17/24:23 AM) 16.3 % *HI* (10/14/24:17 AM) 16.3 % *HI* (10/10/24 6:15 AM) RDW-SD HSL [36.3-46.4 fL] 52.1 fL *HI* (10/17/24:23 AM) 48.7 fL *HI* (10/14/24 7:17 AM) 51.2 fL *HI* (10/10/24 6:15 AM) MPV HSL [8.9-13.1 fL] 10.2 fL (10/17/24:23 AM) 10.4 fL (10/14/24 7:17 AM) 10.0 fL (10/10/24 6:15 AM) Neutrophil Auto HSL [39.5-77.7 %] 60.6 % (10/17/24:23 AM) 62.9 % (10/14/24 7:17 AM) 60.0 % (10/10/24 6:15 AM) Lymphocyte Auto HSL [17.7-52.9 %] 25.8 % (10/17/24 6:23 AM) 27.3 % (10/14/24 7:17 AM) 26.7 % (10/10/24 6:15 AM) Monocyte Auto HSL [2.9-10.5 %] 7.0 % (10/17/24 6:23 AM) 5.2 % (10/14/24 7:17 AM) 6.7 % (10/10/24 6:15 AM) Eosinophil Auto HSL [0.0-7.1 %] 5.7 % (10/17/24 6:23 AM) 4.2 % (10/14/24 7:17 AM) 6.0 % (10/10/24 6:15 AM) Basophil Auto HSL [0.0-9.1 %] 0.9 % (10/17/24 6:23 AM) 0.4 % (10/14/24 7:17 AM) 0.6 % (10/10/24 6:15 AM) Neutrophil Absolute HSL [1.5-7.0 10^3/uL] 4.3 10^3/uL (10/17/24 6:23 AM) 5.0 10^3/uL (10/14/24 7:17 AM) 4.5 10^3/uL (10/10/24 6:15 AM) Lymphocyte Absolute HSL [0.8-2.9 10^3/uL] 1.8 10^3/uL (10/17/24 6:23 AM) 2.2 10^3/uL (10/14/24 7:17 AM) 2.0 10^3/uL (10/10/24 6:15 AM) Monocyte Absolute HSL [0.0-1.1 10^3/uL] 0.5 10^3/uL (10/17/24 6:23 AM) 0.4 10^3/uL (10/14/24 7:17 AM) 0.5 10^3/uL (10/10/24 6:15 AM) Eosinophil Absolute HSL [0.0-0.5 10^3/uL] 0.4 10^3/uL (10/17/24 6:23 AM) 0.3 10^3/uL (10/14/24 7:17 AM) 0.5 10^3/uL (10/10/24 6:15 AM) Basophil Absolute HSL [0.00-0.06 10^3/uL] 0.10 10^3/uL *HI* (10/17/24 6:23 AM) 0.03 10^3/uL (10/14/24 7:17 AM) 0.00 10^3/uL (10/10/24 6:15 AM) Nucleated RBC HSL 0.2 *NA* (10/17/24 6:23 AM) 0.2 *NA* (10/10/24 6:15 AM) 0.1 *NA* (10/07/24 8:30 AM) Sodium HSL [135.9-146.1 mEq/L] 137.0 mEq/L (10/17/24 6:23 AM) 137.0 mEq/L (10/14/24 7:17 AM) 139.0 mEq/L (10/10/24 6:15 AM) Potassium HSL [3.4-4.6 mEq/L] 4.4 mEq/L (10/17/24 6:23 AM) 4.1 mEq/L (10/14/24 7:17 AM) 4.3 mEq/L (10/11/24 9:59 AM) Chloride HSL [95.9-106.1 mEq/L] 103.0 mEq/L (10/17/24 6:23 AM) 103.0 mEq/L (10/14/24 7:17 AM) 104.0 mEq/L (10/10/24 6:15 AM) Carbon Dioxide HSL [21.9-29.1 mEq/L] 28.0 mEq/L (10/17/24 6:23 AM) 28.0 mEq/L (10/14/24 7:17 AM) 27.0 mEq/L (10/10/24 6:15 AM) Anion Gap HSL [8-16 mmol/L] 10 mmol/L (10/17/24 6:23 AM) 10 mmol/L (10/14/24 7:17 AM) 13 mmol/L (10/10/24 6:15 AM) Glucose HSL [74.9-115.1 mg/dL] 115.0 mg/dL (10/17/24 6:23 AM) 113.0 mg/dL (10/14/24 7:17 AM) 94.0 mg/dL (10/10/24 6:15 AM) BUN HSL [10.9-23.1 mg/dL] 23.0 mg/dL (10/17/24 6:23 AM) 20.0 mg/dL (10/14/24 7:17 AM) 26.0 mg/dL *HI* (10/10/24 6:15 AM) Creatinine HSL [0.6-1.6 mg/dL] 0.6 mg/dL (10/17/24 6:23 AM) 0.5 mg/dL *LOW* (10/14/24 7:17 AM) 0.5 mg/dL *LOW* (10/10/24 6:15 AM) eGFR-AA HSL 204 *NA* (10/17/24 6:23 AM) 246 *NA* (10/14/24 7:17 AM) 240 *NA* (10/10/24 6:15 AM) eGFR-Non AA HSL 168 *NA* (10/17/24 6:23 AM) 203 *NA* (10/14/24 7:17 AM) 198 *NA* (10/10/24 6:15 AM) BUN/Creat Ratio HSL [5-20 ratio] 38 ratio *HI* (10/17/24 6:23 AM) 40 ratio *HI* (10/14/24 7:17 AM) 52 ratio *HI* (10/10/24 6:15 AM) Calcium Total HSL [8.9-11.1 mg/dL] 9.6 mg/dL (10/17/24 6:23 AM) 9.6 mg/dL (10/14/24 7:17 AM) 9.1 mg/dL (10/10/24 6:15 AM) Albumin HSL [3.4-5.1 g/dL] 3.8 g/dL (10/17/24 6:23 AM) 3.9 g/dL (10/14/24 7:17 AM) 3.5 g/dL (10/10/24 6:15 AM) Prealbumin HSL [14.9-36.1 mg/dL] 13.6 mg/dL *LOW* (10/03/24 5:55 AM) Protein Total HSL [5.9-8.4 g/dL] 7.2 g/dL (10/17/24 6:23 AM) 7.7 g/dL (10/14/24 7:17 AM) 7.0 g/dL (10/10/24 6:15 AM) Bilirubin Total HSL [0.1-1.4 mg/dL] 0.3 mg/dL (10/17/24 6:23 AM) 0.4 mg/dL (10/14/24 7:17 AM) 0.4 mg/dL (10/10/24 6:15 AM) Magnesium HSL [1.6-2.3 mg/dL] 1.4 mg/dL *LOW* (10/03/24 5:55 AM) Phosphorus HSL [3.3-4.6 mg/dL] 3.2 mg/dL *LOW* (10/03/24 5:55 AM) Alkaline Phosphatase HSL [19.9-90.1 IU/L] 68.0 IU/L (10/17/24 6:23 AM) 74.0 IU/L (10/14/24 7:17 AM) 51.0 IU/L (10/10/24 6:15 AM) AST HSL [9.9-59.1 IU/L] 14.0 IU/L (10/17/24 6:23 AM) 14.0 IU/L (10/14/24 7:17 AM) 15.0 IU/L (10/10/24 6:15 AM) ALT HSL [9.9-40.1 IU/L] 3.0 IU/L *LOW* (10/17/24 6:23 AM) 2.0 IU/L *LOW* (10/14/24 7:17 AM) 3.0 IU/L *LOW* (10/10/24 6:15 AM) C-Reactive Protein HSL [<=9.8 mg/dL] 0.6 mg/dL (10/14/24 7:17 AM) 2.0 mg/dL (10/07/24 8:30 AM) 6.2 mg/dL (10/03/24 5:55 AM) Blood Glucose, Capillary [70-180 mg/dL] 141 mg/dL (10/12/24 9:32 PM) 177 mg/dL (10/03/24 9:47 PM) Blood Glucose Testing Reason Symptoms of hypoglycemia (10/10/24 6:02 AM) 1Result Comment: Calculated using method: Cockcroft-Gault (default) Calculated using Formula : 0.85*(140-ageInYears)*IBW/(72) Age: 64 (55037386005.0) Serum Creatinine: 0.60 mg/dL (63993689719.0) Height: 168 cm (19164161524.0) Weight: 100.7 kg (IBW = 59.626 kg) 2Result Comment: Calculated using method: Cockcroft-Gault (default) Calculated using Formula : 0.85*(140-ageInYears)*IBW/(72) Age: 64 (29530199493.0) Serum Creatinine: 0.50 mg/dL (18431304249.0) Height: 168 cm (51827987836.0) Weight: 100.7 kg (IBW = 59.626 kg) 3Result Comment: Calculated using method: Cockcroft-Gault (default) Calculated using Formula : 0.85*(140-ageInYears)*IBW/(72) Age: 64 (98785150382.0) Serum Creatinine: 0.50 mg/dL (02571140814.0) Height: 168 cm (42675775380.0) Weight: 103.1 kg (IBW = 59.626 kg) Vital Signs Most recent to oldest [Reference Range]: 1 2 3 Temperature Oral F [96.4-99.1 DegF] 98.7 DegF (10/17/24 7:40 AM) 98.2 DegF (10/16/24 7:18 PM) 97.9 DegF (10/16/24 7:13 AM) Peripheral Pulse Rate [60-100 bpm] 77 bpm (10/17/24 7:41 AM) 71 bpm (10/16/24 7:17 PM) 74 bpm (10/16/24 7:14 AM) Respiratory Rate [14-20 br/min] 18 br/min (10/17/24 7:40 AM) 20 br/min (10/16/24 7:17 PM) 18 br/min (10/15/24 7:14 PM) Systolic Blood Pressure [90-140 mmHg] 145 mmHg *HI* (10/17/24 7:40 AM) 146 mmHg *HI* (10/16/24 7:16 PM) 150 mmHg *HI* (10/16/24 7:13 AM) Diastolic Blood Pressure [60-90 mmHg] 80 mmHg (10/17/24 7:40 AM) 77 mmHg (10/16/24 7:16 PM) 80 mmHg (10/16/24 7:13 AM) Mean Arterial Pressure, Cuff 102 mmHg (10/17/24 7:40 AM) 100 mmHg (10/16/24 7:16 PM) 103 mmHg (10/16/24 7:13 AM) Extremity used to obtain blood pressure Left Arm (10/07/24 8:23 PM) Cuff Size. Large (10/07/24 8:23 PM) Temperature Oral 37.1 DegC 1 (10/17/24 7:40 AM) 36.8 DegC 2 (10/16/24 7:18 PM) 36.6 DegC 3 (10/16/24 7:13 AM) 1Result Comment: Charted by SYSTEM secondary to charting of Temperature Oral F on a Vitals Monitor. Rule: VITALSLINK_CALCULATIONS_2 2Result Comment: Charted by SYSTEM secondary to [facility]ing of [facility] [id number] Rule: CARETRACKER_CALCULATIONS 3Result Comment: Charted by SYSTEM secondary to charting of Temperature Oral F on a Vitals Monitor. Rule: VITALSLINK_CALCULATIONS_2 Patient Care team information Personnel Name: Robert LACEY, Ricky Veliz
--- NOTE | 2024-10-20 08:37 | PC.NURSE ---
HS is paging someone from case management.
--- NOTE | 2024-10-20 08:40 | PC.NURSE ---
paged Dr Jones for Dr Abdullahi
--- NOTE | 2024-10-20 08:40 | PC.NURSE ---
Dr Abdullahi asked for staff to page case management, housekeeping room inspector notified and will have whomeve is on-call for case management paged for Dr Abdullahi
--- NOTE | 2024-10-20 08:42 | PC.NURSE ---
Dr Abdullahi is s/w Brit from Case Management
--- NOTE | 2024-10-20 08:47 | ED_ITS ---
Discharge Plan Disposition Patient Disposition: Admitted Prescriptions Prescriptions: No Action aspirin [Jacki Low Dose Aspirin] 81 mg tablet,delayed release (DR/EC) 81 mg PO DAILY duloxetine 60 mg capsule,delayed release(DR/EC) 60 mg PO DAILY Qty: 90 1RF duloxetine 30 mg capsule,delayed release(DR/EC) 30 mg PO DAILY Qty: 90 0RF fluoxetine 40 mg capsule 40 mg PO DAILY Qty: 90 1RF Caplyta 42 mg capsule 42 mg PO DAILY Qty: 90 0RF fenofibrate nanocrystallized 145 mg tablet 145 mg PO DAILY Xarelto 2.5 mg tablet 2.5 mg PO BID Qty: 60 2RF nitroglycerin [Nitro-Dur] 0.4 mg/hr patch 24 hour 1 patch transdermal DAILY 30 Days Qty: 30 2RF Rx Instructions: allow nitrate-free interval of approx. 10-12 hrs per 24-hour period apply to front of right ankle to help with circulation to right amputation flap site doxycycline hyclate 100 mg capsule 100 mg PO BID 14 Days Qty: 28 0RF calcium carbonate-vitamin D3 1 EACH tablet 1 each PO BID insulin glargine 100 unit/mL solution 30 unit SQ BID metformin 500 mg tablet 1,000 mg PO BID carbidopa-levodopa 50-200 mg tablet extended release 2 tab PO TID gabapentin 300 MG capsule 300 mg PO TIDP PRN (Reason: neuropathic pain) tramadol 50 mg tablet 50 mg PO Q8H PRN (Reason: pain) Qty: 20 0RF atorvastatin 20 MG tablet 20 mg PO HS meloxicam 7.5 MG tablet 7.5 mg PO DAILY lisinopril 20 mg tablet 20 mg PO BID metoprolol succinate 50 mg tablet extended release 24 hr 150 mg PO DAILY insulin aspart U-100 100 unit/mL (3 mL) insulin pen 0 unit SQ DIRECTED Rx Instructions: 32 UNITS BREAKFAST/20 UNITS LUNCH/32 UNITS DINNER SQ as directed; Rybelsus 7 mg tablet 7 mg PO DAILY Referrals Follow up/Referrals: Ricky Jones MD [Primary Care Provider] - See instructions Clinical Impressions Clinical Impression: Inability to walk, Unable to care for self, Below-knee amputation of right lower extremity Print Language Print Language: Niuean Discharge ED Provider: Sj Abdullahi General Adult HPI General Chief complaint: Recheck/Abnormal Lab/Rx Stated complaint: wound check/vomiting X1 Time Seen by Provider: 10/20/24 08:23 Mode of Arrival: EMS Source of Information: Patient Description of Symptoms (Recalled from ER Triage Doc. by RN): Pt states that she was d/c from [facility] 3d ago post R BKA in August. Pt states that her called EMS because he is not able to adequately care for her. She states she thinks she needs to go back to [facility]. Pt reports she had one episode of N/V last night. She denies abd pain or any other symptoms. History of Present Illness HPI narrative: Patient is a 64-year-old female presenting today with inability to care for herself at home. She was seen in our ER less than 1 month ago was ultimately transferred to [facility] where she was diagnosed with a necrotizing infection requiring a BKA. She has been doing well from a wound standpoint has no complaints from that. She was transferred to [facility] was there for several weeks was discharged 3 days ago had home health on Monday she is unsure of the vianey of home health since that time. The only help other than home health that she has had is her 77-year-old who is not in good shape himself. Yesterday he hurt himself trying to transfer her and is no longer able to help her. Therefore she is unable to care for herself at home therefore has presented to the emergency department. She is very tearful and states she has no other options other than being here at the moment. They did call [facility] who told her to come back to the emergency department. Related Data Home Medications ?Medication ?Instructions ?Recorded ?Confirmed atorvastatin 20 mg tablet 20 mg PO HS 07/05/17 09/23/24 meloxicam 7.5 mg tablet 7.5 mg PO DAILY 07/05/17 09/23/24 calcium 600 mg (as 1 each PO BID 10/09/18 09/23/24 carbonate)-vitamin D3 20 mcg (800 unit) tablet aspirin 81 mg tablet,delayed 81 mg PO DAILY 05/09/19 09/23/24 release (Jacki Low Dose Aspirin) fenofibrate nanocrystallized 145 145 mg PO DAILY 10/30/19 09/23/24 mg tablet lisinopril 20 mg tablet 20 mg PO BID Hypertension 10/30/19 09/23/24 metoprolol succinate 50 mg 150 mg PO DAILY 07/05/22 09/23/24 tablet,extended release 24 hr semaglutide 7 mg tablet (Rybelsus) 7 mg PO DAILY 11/07/23 09/23/24 insulin aspart U-100 100 unit/mL 0 unit SQ DIRECTED 02/22/24 09/23/24 (3 mL) subcutaneous pen carbidopa ER 50 mg-levodopa 200 mg 2 tab PO TID 09/11/24 09/23/24 tablet,extended release gabapentin 300 mg capsule 300 mg PO TIDP PRN neuropathic pain 09/11/24 09/23/24 insulin glargine 100 unit/mL 30 unit SQ BID 09/11/24 09/23/24 subcutaneous solution metformin 500 mg tablet 1,000 mg PO BID 09/11/24 09/23/24 Previous Rx's ?Medication ?Instructions ?Recorded rivaroxaban 2.5 mg tablet (Xarelto) 2.5 mg PO BID #60 tabs 07/18/24 duloxetine 30 mg capsule,delayed 30 mg PO DAILY #90 caps 08/09/24 release duloxetine 60 mg capsule,delayed 60 mg PO DAILY #90 caps 08/09/24 release fluoxetine 40 mg capsule 40 mg PO DAILY #90 caps 08/09/24 lumateperone 42 mg capsule 42 mg PO DAILY #90 caps 08/09/24 (Caplyta) tramadol 50 mg tablet 50 mg PO Q8H PRN pain #20 tabs 09/13/24 nitroglycerin 0.4 mg/hr 1 patch transdermal DAILY 30 days 09/23/24 transdermal 24 hour patch #30 ea (Nitro-Dur) doxycycline hyclate 100 mg capsule 100 mg PO BID infection 14 days 09/26/24 #28 caps Allergies Allergy/AdvReac Type Severity Reaction Status Date / Time No Known Allergies Allergy Verified 10/20/24 08:30 [facility] Disclaimer: The information contained in this section may have been updated after the patient was seen, as this information can be updated by other users. 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 Currently on second-generation antipsychotic Surgical History History of amputation of toe History of tonsillectomy and adenoidectomy History of skin graft History of lumpectomy of left breast History of cholecystectomy History of lumpectomy of left breast History of carpal tunnel surgery of left wrist Hx of cholecystectomy Family History Other Cancer Coronary artery disease Diabetes Hyperlipidemia Hypertension Stroke Social History Smoking Status: Never smoker alcohol intake: never substance use type: denies use current occupational status: disabled Travel in the last 8 weeks: None household members: spouse housing: house number of children: 0 current occupational exposures/hazards: No caffeine: Yes Have you lived/traveled outside [place] in past 30 days?: No Contact w/someone who lives/traveled outside US past 30 days?: No Exposure to someone with infectious disease in past 14 days?: No Do you have a fever (greater than 100.4 F or 38 C)?: No Have you tested positive for COVID-19: No Exposed to someone with COVID-19 in past 14 days?: No Do you have a sore throat?: No Do you have a cough?: No Do you have any weakness?: No Do you have any diarrhea?: No Are you experiencing any unusual bleeding?: No Do you have any muscle aches/pain?: No Do you have any abdominal pain?: No Are you experiencing loss of taste or smell?: No Other Medical History Have you received the Flu Vaccine for this season: No Have you received the Pneumonia Vaccine: No ROS Obtained: Yes All systems reviewed & no additional complaints except as documented Physical Exam General General appearance: other (Tearful) Respiratory Respiratory exam: Present normal lung sounds bilaterally Cardiovascular Cardiovascular exam: Present regular rate Extremities Exam Extremities exam: Present other (Right below-knee amputation wound is clean dry and intact currently still with reji no pathologic erythema purulence or tenderness) Neurological Exam Neurological exam: Present alert and oriented X3 Medical Decision Making Medical Records Screening: Per USPSTF and CDC recommendations, given the prevalence of disease in our region, it is our hospital?s policy to screen for HIV and viral Hepatitis for all patients aged 18 and over and those with ongoing risk factors. Gunner Inquiry Pt receiving controlled substance: No Vital Signs: 10/20/24 08:26 Temperature 98.5 F Temperature Source Oral Pulse Rate [Left] 63 Respiratory Rate 16 Blood Pressure [Right Arm] 139/59 L Blood Pressure Mean [Right Arm] 85 Blood Pressure Source [Right Arm] Automatic Cuff Blood Pressure Position [Right Arm] Sitting 02 Sat by Pulse Oximetry 99 Oxygen Delivery Method Room Air Medical Decision Narrative: 64-year-old with above history and physical. She has no somatic complaints at the moment the wound itself looks very good no evidence of infection. No indication for any labs etc. She is here for purely social and functional reasons. I did discuss the case with our case management on-call. Patient is a Medicare patient with insurance and is within 30 days of her initial visit therefore should have already qualified for her 3-day stay however given the fact that it Monday and we cannot get her directly to a senior living or rehab facility at the moment. I spoke subsequently with Dr. Jones who agreed to admit her until PT OT and case management can see her tomorrow to discuss further placement issues. Family is aware of this and agreeable to this plan. Critical Care Critical Care Time Critical Care Time: No
--- NOTE | 2024-10-20 08:47 | PC.NURSE ---
Dr Abdullahi s/w Dr Jones for admission, he agrees
--- NOTE | 2024-10-20 08:50 | PC.NURSE ---
Called bus driver supervisor for bed assignment and need for admission. Bed request placed. at bedside
--- NOTE | 2024-10-20 09:03 | PC.NURSE ---
Report called to MARIO CRUZ
--- NOTE | 2024-10-20 09:08 | P.HP_ITS ---
History of Present Illness *Admission Date: 10/20/24 *Reason for visit:: Unable to care for self *History of present illness: Ms. Painter is a patient of [facility] who recently had a right below the knee amputation at , due to chronic osteomyelitis, with subsequent post hospital care at [facility]. She states she was discharged home a few days ago and was supposed to start home health care tomorrow. She states that she is unable to complete transfers and care for herself at home. She called the home health agency and was directed to come to the ER for further evaluation. [facility] Disclaimer: The information contained in this section may have been updated after the patient was seen, as this information can be updated by other users. Medical History (Updated 10/20/24 @ 09:15 by Ricky Jones MD) MRSA (methicillin resistant staph aureus) culture positive Below-knee amputation of right lower extremity Gangrene due to peripheral vascular disease Osteomyelitis of right foot Peripheral arterial disease Klebsiella cystitis Edema of both lower extremities Pre-ulcerative calluses Non compliance w medication regimen Depression Bilateral impacted cerumen Otitis externa of left ear Mixed hearing loss of left ear SNHL (sensorineural hearing loss) Dizziness Bilateral hearing loss Urinary tract infection Parkinson disease Osteoarthritis Diabetes mellitus, type 2 Hyperlipidemia Hypertension Breast cancer Bilateral impacted cerumen Chronic external ear infection Recurrent major depression resistant to treatment Surgical History (Updated 10/20/24 @ 09:15 by Ricky Jones MD) History of right below knee amputation S/P transmetatarsal amputation of foot History of amputation of toe History of tonsillectomy and adenoidectomy History of skin graft History of lumpectomy of left breast History of cholecystectomy History of lumpectomy of left breast History of carpal tunnel surgery of left wrist Hx of cholecystectomy Family History Other Cancer Coronary artery disease Diabetes Hyperlipidemia Hypertension Stroke Social History Smoking Status: Never smoker alcohol intake: never substance use type: denies use current occupational status: disabled Travel in the last 8 weeks: None household members: spouse housing: house number of children: 0 current occupational exposures/hazards: No caffeine: Yes Have you lived/traveled outside US in past 30 days?: No Contact w/someone who lives/traveled outside US past 30 days?: No Exposure to someone with infectious disease in past 14 days?: No Do you have a fever (greater than 100.4 F or 38 C)?: No Have you tested positive for COVID-19: No Exposed to someone with COVID-19 in past 14 days?: No Do you have a sore throat?: No Do you have a cough?: No Do you have any weakness?: No Do you have any diarrhea?: No Are you experiencing any unusual bleeding?: No Do you have any muscle aches/pain?: No Do you have any abdominal pain?: No Are you experiencing loss of taste or smell?: No Other Medical History Have you received the Flu Vaccine for this season: No Have you received the Pneumonia Vaccine: No Review of Systems Constitutional Constitutional: Denies chills and Denies fever(s) ENT Ears, Nose, Mouth, and Throat: Denies dizziness *Cardiovascular Cardiovascular: Denies chest pain and Denies dyspnea *Respiratory Respiratory: Denies dyspnea *Gastrointestinal Gastrointestinal: Denies change in bowel habits *Genitourinary Genitourinary: Denies difficulty voiding *Musculoskeletal Musculoskeletal: Reports as per HPI and Denies arthralgias *Neurologic Neurologic: Denies dizziness Meds Home Medications and Allergies Home Medications ?Medication ?Instructions ?Recorded ?Confirmed ?Type atorvastatin 20 mg tablet 20 mg PO HS 07/05/17 10/20/24 History meloxicam 7.5 mg tablet 7.5 mg PO DAILY 07/05/17 10/20/24 History calcium 600 mg (as 1 each PO BID 10/09/18 10/20/24 History carbonate)-vitamin D3 20 mcg (800 unit) tablet aspirin 81 mg tablet,delayed 81 mg PO DAILY 05/09/19 10/20/24 History release (Jacki Low Dose Aspirin) fenofibrate nanocrystallized 145 145 mg PO DAILY 10/30/19 10/20/24 History mg tablet lisinopril 20 mg tablet 40 mg PO DAILY Hypertension 10/30/19 10/20/24 History metoprolol succinate 50 mg 150 mg PO DAILY 07/05/22 10/20/24 History tablet,extended release 24 hr semaglutide 7 mg tablet (Rybelsus) 7 mg PO DAILY 11/07/23 10/20/24 History insulin aspart U-100 100 unit/mL See Protocol SQ ACHS 08/22/24 04/20/25 History (3 mL) subcutaneous pen rivaroxaban 2.5 mg tablet (Xarelto) 2.5 mg PO BID #60 tabs 07/18/24 10/20/24 Rx duloxetine 30 mg capsule,delayed 30 mg PO DAILY #90 caps 08/09/24 10/20/24 Rx release duloxetine 60 mg capsule,delayed 60 mg PO DAILY #90 caps 08/09/24 10/20/24 Rx release carbidopa ER 50 mg-levodopa 200 mg 2 tab PO TID 09/11/24 10/20/24 History tablet,extended release gabapentin 300 mg capsule 300 mg PO TIDP PRN neuropathic pain 09/11/24 10/20/24 History insulin glargine 100 unit/mL 30 unit SQ BID 09/11/24 10/20/24 History subcutaneous solution metformin 500 mg tablet 1,000 mg PO BID 09/11/24 10/20/24 History nitroglycerin 0.4 mg/hr 1 patch transdermal DAILY 30 days 09/23/24 10/20/24 Rx transdermal 24 hour patch #30 ea (Nitro-Dur) fluoxetine 20 mg capsule 40 mg PO DAILY 10/20/24 10/20/24 History lumateperone 42 mg capsule 42 mg PO HS 10/20/24 10/20/24 History (Caplyta) New Prescriptions to Start Prescriptions: Allergies Allergy/AdvReac Type Severity Reaction Status Date / Time No Known Allergies Allergy Verified 10/20/24 08:30 Exam Data for Last 24 hours Vital signs and Labs for Last 24 Hours: Temp Pulse Resp BP Pulse Ox O2 Del Method 98.5 F 63 16 139/59 L 99 Room Air 10/20/24 08:26 10/20/24 08:26 10/20/24 08:26 10/20/24 08:26 10/20/24 08:26 10/20/24 08:26 I & O for Last 24 hours: Intake & Output 10/17/24 10/18/24 10/19/24 10/20/24 23:59 23:59 23:59 23:59 Weight 230 lb Constitutional Constitutional: no acute distress *Routine HEENT Exam Head: Present normocephalic and atraumatic Eye: Present EOMI and PERRL ENT: Present mucous membranes moist *Routine Neck Exam Neck: Present supple and full ROM *Routine Respiratory Exam Respiratory: Present CTA bilaterally *Routine Cardiovascular Exam Cardiovascular: Present RRR *Routine Abdominal Exam Abdominal: Present soft and normoactive bowel sounds; Absent tenderness *Routine Rectal Exam Rectal:: deferred *Routine Genitalia Exam Genitalia:: deferred *Routine Extremities Exam Comments: Large splint on right lower extremity *Routine Skin Exam Skin: Present intact; Absent erythema *Routine Neurological Exam Neurological: Present alert, oriented X3 and tremors Assessment and Plan *Assessment and plan (1) Unable to care for self: Status: Acute Category: Medical Code(s): Z78.9 - Other specified health status (2) Inability to walk: Status: Acute Category: Medical Code(s): R26.2 - Difficulty in walking, not elsewhere classified (3) Below-knee amputation of right lower extremity: Status: Acute Category: Medical Code(s): S88.111A - Complete traumatic amputation at level between knee and ankle, right lower leg, initial encounter (4) Obesity, Class II, BMI 35-39.9: Status: Acute Category: Medical Code(s): E66.812 - Obesity, class 2 (5) Tremor: Status: Acute Category: Medical Code(s): R25.1 - Tremor, unspecified (6) Peripheral arterial disease: Status: Chronic Category: Medical Code(s): I73.9 - Peripheral vascular disease, unspecified (7) Depression: Status: Acute Qualifiers: Active/Remission status: remission status unspecified Depression Type: major depressive disorder Major depression recurrence: unspecified whether recurrent Qualified Code(s): F32.9 - Major depressive disorder, single episode, unspecified Category: Medical Code(s): F32.A - Depression, unspecified (8) Hypertension: Status: Chronic Qualifiers: Hypertension type: unspecified Qualified Code(s): I10 - Essential (primary) hypertension Category: Medical Code(s): I10 - Essential (primary) hypertension (9) Hyperlipidemia: Status: Chronic Qualifiers: Hyperlipidemia type: other hyperlipidemia Qualified Code(s): E78.49 - Other hyperlipidemia Category: Medical Code(s): E78.5 - Hyperlipidemia, unspecified (10) Type 2 diabetes mellitus: Status: Chronic Qualifiers: Diabetes mellitus complication detail: with polyneuropathy Diabetes mellitus complication status: with neurologic complications Diabetes mellitus nursing home insulin use: with nursing home use Qualified Code(s): E11.42 - Type 2 diabetes mellitus with diabetic polyneuropathy; Z79.4 - extermination inspector (current) use of insulin Category: Medical Code(s): E11.9 - Type 2 diabetes mellitus without complications (11) Diabetes mellitus with diabetic neuropathy: Status: Chronic Qualifiers: Diabetes mellitus nursing home insulin use: with watermaster use Diabetes mellitus type: type 2 Qualified Code(s): E11.40 - Type 2 diabetes mellitus with diabetic neuropathy, unspecified; Z79.4 - extermination inspector (current) use of insulin Category: Medical Code(s): E11.40 - Type 2 diabetes mellitus with diabetic neuropathy, unspecified Plan Patient admitted to [facility] until SNF transfer can be arranged. Consult care management.
[2024-10-20] MEDS: ASPIRIN EC 81MG TABLET 81 MG PO (10:22)
[2024-10-20] MEDS: FENOFIBRATE 134MG CAPSULE 134 MG PO (10:22)
[2024-10-20] MEDS: FLUOXETINE 20MG CAPSULE 40 MG PO (10:22)
[2024-10-20] MEDS: DULOXETINE 30MG CAPSULE.DR 90 MG PO (10:22)
[2024-10-20] MEDS: METOPROLOL SUCCINATE XL 50MG TABLET 150 MG PO (10:22)
[2024-10-20 11:42] LABS: POC Glucose,Bedside 233 (70-110)
[2024-10-20] MEDS: humaLOG 100 UNITS/ML 10ML VIAL (SSI) SUBCUT ×3 (12:01→20:31)
[2024-10-20] MEDS: METFORMIN 500 MG 1000 MG PO (16:36)
[2024-10-20 16:49] LABS: POC Glucose,Bedside 266 (70-110)
--- NOTE | 2024-10-20 17:48 | HMH.PTEV ---
Physical Therapy Evaluation Rehab PT IP Evaluation Start: 10/20/24 10:11 Freq: ONCE Status: Active Protocol: Document 10/20/24 17:40 ISMAMOR (Rec: 10/20/24 17:48 ISMAMOR [id number]) Subjective/History History History Per H&P, Ms. Painter is a patient of [facility] who recently had a right below the knee amputation at , due to chronic osteomyelitis, with subsequent post hospital care at [facility]. She states she was discharged home a few days ago and was supposed to start home health care tomorrow. She states that she is unable to complete transfers and care for herself at home. She called the home health agency and was directed to come to the ER for further evaluation. Subjective Subjective Pt is alert and oriented x3. Pt reports that she underwent a Right BKA approximately 1 month ago and she spent approximately 3 weeks at [facility] for further Rehab. Pt reports that she was home for approximately 1 week and was having tremendous difficulty with all transfers. Pt reports that her injured his back and is no longer able to help her transfer. Pt reports that the only transfers she was able to do were from chair to BC by standing and having the chairs switched out. Pt reports she is unable to do any form of transfers Independently. New diagnosis of cancer in past 12 No months? [facility] How much help from another person do you currently need... Turning from your back to your side A little while in a flat bed without using bedrails? Moving from lying on back to sitting on A little the side of a flat bed without using bedrails? Moving to and from a bed to a chair ( A lot including a wheelchair)? Standing up from a chair using your arms A little ? (e.g., wheelchair, bedside chair) Walking in hospital room? Total Climbing 3-5 steps with a railing? Total Mobility Score 13 Mobility Level [facility] Mobility Calculator Mobility 4 Move to chair/ commode Rehab PT IP Eval Objective Appearance Patient Behavior Appropriate,Patient Baseline Patient Orientation Person,Place,Time Difficulty following instructions none Speech Pattern Clear,Patient Baseline Ambulation Patient Able to Ambulate No Balance Ability to Arise Able, uses arms to help Sitting Balance Steady, safe Standing Balance Unsteady Dynamic Sitting Balance Ability Fair Dynamic Standing Balance Ability Poor Transfers Bed Transfer Ability Moderate x 1 (50% assist) Chair Transfer Ability Moderate x 1 (50% assist) Sit to Stand Bed Transfer Ability Moderate x 1 (50% assist) Sit to Stand Chair Transfer Ability Maximum x 1 (75% assist) Rehab PT IP prob,goals,plan Problems Date of Evaluation: 10/20/24 PT IP Problems Bed Mobility,Transfers,Gait, Balance,Self care,Safety Rehab Potential Rehab Potential Fair Equipment Needs Assistive Devices Standard Walker Plan PT Intervention Plan Bed Mobility,Transfers,Gait, Balance,Self care,Safety, Therapeutic Exercise PT Plan Frequency BID Duration LOS Discharge Goals Bed Transfer Ability Minimal x 1 (25% assist) Sit to Stand Chair Transfer Ability Contact Guard/Hand Hold Ambulation Assistive Device Rolling Walker Ambulation Distance (feet) 5 Discharge Plan PT Discharge Plan PT is recommending placement for further rehab upon discharge from the hospital. Pt requires assistance with all transfers and pt's family is currently incapable of offering the assistance that the pt requires. Pt does not present safely for a discharge to home at this time. Pt would benefit from skilled PT during her acute stay to improve transfers and prepare for a safe discharge to home. Eval Complexity Eval Charge Codes 55141 - High Complexity PHYSICIAN CERTIFICATION: I certify the specified therapy services for Emiliana Painter are required, authorized, and reviewed every 30 days.
[2024-10-20] MEDS: RIVAROXABAN 2.5 MG PO (20:22)
[2024-10-20] MEDS: PAT OWN MED ***ATORVASTATIN 20MG 20 MG PO (20:23)
[2024-10-20 20:31] LABS: POC Glucose,Bedside 165 (70-110)
[2024-10-21] VITALS: BP 138/78; PULSE 69; RESP 16; TEMP 36.8; O2SAT 97
[2024-10-21 04:00] VITALS: BP 161/70; PULSE 65; RESP 16; TEMP 36.7; O2SAT 100; BMI 34.9
[2024-10-21] MEDS: humaLOG 100 UNITS/ML 10ML VIAL (SSI) SUBCUT ×4 (05:26→20:37)
[2024-10-21 05:32] LABS: POC Glucose,Bedside 186 (70-110)
--- NOTE | 2024-10-21 07:50 | P.PN_ITS ---
Subjective *Date: 10/21/24 *Time: 08:51 Interval history: Patient did not sleep very well last night. She denies any pain. She is breathing without difficulty. She denies chest pain. She is eating well. is present. He states he has been unable to assist with her transfers on an ongoing basis. He has developed a back problem due 2 assisting activities. She was at [facility] for 3 weeks after her surgery. She states she initially was able to perform transfers. Now her right leg will not cooperate. She states it locked up yesterday. Exam Data for Last 24 hours Vital signs and Labs for Last 24 Hours: Temp Pulse Resp BP Pulse Ox O2 Del Method 98.0 F 65 16 161/70 H 100 Room Air 10/21/24 04:00 10/21/24 04:00 10/21/24 04:00 10/21/24 04:00 10/21/24 04:00 10/21/24 06:31 Laboratory Results - last 24 hr 10/20/24 11:27: POC Glucose 233 H 10/20/24 16:35: POC Glucose 266 H 10/20/24 20:21: POC Glucose 165 H 10/21/24 05:24: POC Glucose 186 H I & O for Last 24 hours: Intake & Output 10/18/24 10/19/24 10/20/24 10/21/24 11:59 11:59 11:59 11:59 Intake Total 960 / 960 Output Total 850 / 850 Balance 110 / 110 Weight 217 lb 6 oz 217 lb 11.2 oz Constitutional Constitutional: no acute distress Comments: Sitting up in the bed and eating her breakfast. She appears comfortable. *Routine Respiratory Exam Respiratory: Present CTA bilaterally *Routine Cardiovascular Exam Cardiovascular: Present RRR *Routine Abdominal Exam Abdominal: Present soft, normoactive bowel sounds and obese; Absent tenderness *Routine Extremities Exam Comments: Right leg with wraps and boot on. Left leg with intact skin. Left foot with intact skin. No edema. Good pedal pulses. *Routine Neurological Exam Neurological: Present alert and oriented X3 Assessment and Plan *Assessment and plan (1) Unable to care for self: Status: Acute Category: Medical Code(s): Z78.9 - Other specified health status (2) Inability to walk: Status: Acute Category: Medical Code(s): R26.2 - Difficulty in walking, not elsewhere classified (3) Below-knee amputation of right lower extremity: Status: Acute Category: Medical Code(s): S88.111A - Complete traumatic amputation at level between knee and ankle, right lower leg, initial encounter (4) Obesity, Class II, BMI 35-39.9: Status: Acute Category: Medical Code(s): E66.812 - Obesity, class 2 (5) Tremor: Status: Acute Category: Medical Code(s): R25.1 - Tremor, unspecified (6) Peripheral arterial disease: Status: Chronic Category: Medical Code(s): I73.9 - Peripheral vascular disease, unspecified (7) Depression: Status: Acute Qualifiers: Active/Remission status: remission status unspecified Depression Type: major depressive disorder Major depression recurrence: unspecified whether recurrent Qualified Code(s): F32.9 - Major depressive disorder, single episode, unspecified Category: Medical Code(s): F32.A - Depression, unspecified (8) Hypertension: Status: Chronic Qualifiers: Hypertension type: unspecified Qualified Code(s): I10 - Essential (primary) hypertension Category: Medical Code(s): I10 - Essential (primary) hypertension (9) Hyperlipidemia: Status: Chronic Qualifiers: Hyperlipidemia type: other hyperlipidemia Qualified Code(s): E78.49 - Other hyperlipidemia Category: Medical Code(s): E78.5 - Hyperlipidemia, unspecified (10) Type 2 diabetes mellitus: Status: Chronic Qualifiers: Diabetes mellitus complication detail: with polyneuropathy Diabetes mellitus complication status: with neurologic complications Diabetes mellitus superintendent terminal insulin use: with detention use Qualified Code(s): E11.42 - Type 2 diabetes mellitus with diabetic polyneuropathy; Z79.4 - intermediate (current) use of insulin Category: Medical Code(s): E11.9 - Type 2 diabetes mellitus without complications (11) Diabetes mellitus with diabetic neuropathy: Status: Chronic Qualifiers: Diabetes mellitus detention insulin use: with detention use Diabetes mellitus type: type 2 Qualified Code(s): E11.40 - Type 2 diabetes mellitus with diabetic neuropathy, unspecified; Z79.4 - intermediate (current) use of insulin Category: Medical Code(s): E11.40 - Type 2 diabetes mellitus with diabetic neuropathy, unspecified Plan Patient admitted to [facility] until SNF transfer can be arranged. Consult care management. Physical therapy also consulted; CBC and CMP ordered Dr. Jones entry - Saw patient, agree with above note.
[2024-10-21 08:00] VITALS: BP 146/62; PULSE 66; RESP 20; TEMP 36.4; O2SAT 96
[2024-10-21] MEDS: PAT OWN MED ***ASPIRIN EC 81MG 81 MG PO (08:14)
[2024-10-21] MEDS: ENOXAPARIN 40MG/0.4ML SYRINGE 40 MG SUBCUT (08:14)
[2024-10-21] MEDS: METOPROLOL SUCCINATE 50 MG 150 MG PO (08:14)
[2024-10-21] MEDS: FLUOXETINE 40 MG 1 EACH PO (08:14)
[2024-10-21] MEDS: PAT OWN MED ***DULOXETINE 60 MG 1 EACH PO (08:15)
[2024-10-21] MEDS: FENOFIBRATE 145 MG 1 EACH PO (08:15)
[2024-10-21] MEDS: METFORMIN 500 MG 1000 MG PO ×2 (08:23→17:01)
[2024-10-21] MEDS: RIVAROXABAN 2.5 MG PO ×2 (08:29→20:36)
[2024-10-21 08:33] LABS: MANUAL DIFFERENTIAL MANUAL DIFFERENTIAL (MANUAL DIFF)
[2024-10-21 08:35] LABS: Basophils # 0.1 K/mm3 (0-0.2); Basophils % 0.6 % (0.1-2.0); Eosinophils # 0.3 Kmm3 (0.0-0.4); Eosinophils % 3.4 % (0.1-12.0); Hematocrit 31.3 % (37.0-47.0); Hemoglobin 9.6 g/dL (12.2-16.2); Lymphocytes # 1.5 K/mm3 (0.7-4.5); Mean Corpuscular HGB Conc 30.7 g/dL (31.8-35.4); Mean Corpuscular Hemoglobin 27.2 pg (27.0-31.2); Mean Corpuscular Volume 88.7 fl (81-99); Mean Platelet Volume 11.3 fl (7.4-10.4); Monocytes # 0.4 K/mm3 (0.1-1.0); Monocytes % 5.4 % (1.7-9.3); Neutrophils # 5.5 K/mm3 (1.8-7.8); Neutrophils % 71.3 % (37.0-80.0); Platelet Count 232 K/mm3 (142-424); Red Blood Count 3.53 M/mm3 (4.20-5.40); Red Cell Distribution Width 15.4 % (11.5-17.5); White Blood Count 7.7 K/mm3 (4.8-10.8)
[2024-10-21 08:42] LABS: Albumin Level 3.7 g/dl (3.5-5.0); Chloride 107 mmol/L (98-107); Potassium 4.2 mmoL/L (3.5-5.1); Sodium 139 mmol/L (136-145)
[2024-10-21 08:45] LABS: Alanine Aminotransferase 23 U/L (12-78); Albumin/Globulin Ratio 1.1 (1.1-1.8); Alkaline Phosphatase 73 U/L (38-126); Anion Gap 10.2 mEq/L (5-15); Aspartate Amino Transferase 24 U/L (14-36); Bilirubin,Total 0.2 mg/dl (0.2-1.3); Blood Urea Nitrogen 26 mg/dl (7-17); Calcium 9.5 mg/dl (8.4-10.2); Carbon Dioxide 26 mmol/L (22.0-30.0); Creatinine Clearance Estimated 87 mL/min (50-200); Estimated Glomerular Filt Rate 72 ml/min (>60); GFR (African American) 87 ML/MIN (>60); Globulin 3.4 g/dL (1.3-3.2); Glucose 216 mg/dl (74-100); Total Protein,Serum 7.1 g/dl (6.3-8.2)
[2024-10-21 09:32] LABS: Hypochromasia 1+; Lymphocytes % 18 % (10-50); Monocytes % 4 % (2-9); Neutrophils % 78 % (42-76); Platelet Estimate Normal; Total Cells Counted 100
--- NOTE | 2024-10-21 10:03 | SW/DCPLANNER ---
Addendum entered by Mary Antonio 10/22/24 12:02: [facility] is able to accept patient today and will be D/C. Tesfaye Anderson Addendum entered by Mary Antonio 10/22/24 09:33: The agencies i sent the patients info too yesterday was not able to accept patient. Talked with patient and she was agreeable to go to [facility]. I faxed patients info to [facility]. Will update once i hear back. Tesfaye Anderson Addendum entered by Mary Antonio 10/21/24 12:17: Spoke with patient again about other places to go for therapy. Patient stated that i could send her stuff to [facility], and [facility] in [place]. Will update when i hear back from them. Original Note: Spoke with patient about once medically stable where she would like to go for SNF for rehab. Patient stated that she would like to go back to [facility] and if not then her other 2 choices would be [place] and [place]. I have sent patients info to these facilities. Will update once i hear from them. Tesfaye Anderson
--- NOTE | 2024-10-21 11:59 | HMH.OTEV ---
OT Inpatient Evaluation Rehab OT IP Evaluation Start: 10/20/24 10:11 Freq: ONCE Status: Active Protocol: Document 10/21/24 11:53 [facility] (Rec: 10/21/24 11:58 [facility] [id number]) Rehab OT IP Assessment Subjective History Per H&P, Ms. Painter is a patient of [facility] who recently had a right below the knee amputation at , due to chronic osteomyelitis, with subsequent post hospital care at [facility]. She states she was discharged home a few days ago and was supposed to start home health care tomorrow. She states that she is unable to complete transfers and care for herself at home. She called the home health agency and was directed to come to the ER for further evaluation. Subjective Pt is alert and oriented x3. Pt reports that she underwent a Right BKA approximately 1 month ago and she spent approximately 3 weeks at [facility] for further Rehab. Pt reports that she was home for approximately 1 week and was having tremendous difficulty with all transfers. Pt reports that her injured his back and is no longer able to help her transfer. Pt reports that the only transfers she was able to do were from chair to BC by standing and having the chairs switched out. Pt reports she is unable to do any form of transfers Independently. Pt claims she was able to dress herself in bed independently, but was unable to bathe herself. [ End ] Objective Patient Orientation Person,Place,Birthday Right Upper Extremity Gross ROM Min Limitation <25% Left Upper Extremity Gross ROM Min Limitation <25% Shoulder ROM Limitations Muscle Weakness Elbow ROM Limitations Muscle Weakness Wrist Limitations of Range of Motion Muscle Weakness Bed Mobility bed mobility-scooting,bed mobility - supine/sit Assist Level Minimal x 1 (25% assist) Transfer Training Sit/Stand/Pivot Transfer Assist Level Moderate x 2 (50% assist) Chair Transfer Ability Moderate x 2 (50% assist) Chair Transfer Technique Stand Pivot Chair Transfer Assistive Devices Rolling Walker Rehab OT IP prob,goals,plan Problems Date of Evaluation: 10/21/24 OT IP Problems Bed Mobility,Transfers,Balance ,Self care,Safety Rehab Potential Rehab Potential Good Equipment Needs Assistive Devices Rolling / Wheeled Walker, Wheelchair Plan OT intervention Plan Bed Mobility,Transfers,Balance ,Self care,Safety,Therapeutic Exercise OT Plan Frequency Daily Duration LOS Discharge Goals Bed Mobility Ability Standby Assistance Sit to Stand Chair Transfer Ability Moderate x 1 (50% assist) Chair Transfer Ability Moderate x 1 (50% assist) Chair Transfer Technique Stand Pivot Chair Transfer Assistive Devices Rolling Walker Feeding Ability Assist with Tray Set Up Lower Body Dressing Ability Moderate Assistance Upper Body Dressing Ability Minimal Assistance Bathing Ability Moderate Assistance Performing Toilet Hygiene Ability Moderate Assistance Overall Commode/Toilet Transfer Ability Moderate Assistance Commode/Toilet Transfer Technique Stand Pivot Commode/Toilet Transfer Assistive Grab Bars Devices Oral Care Assist Minimal Assistance Decrease in Endurance Yes Discharge Plan OT Discharge Plan Pt will continue to be seen for OT services while at [facility]. Pt would benefit most from short term rehab at SNF following discharge from hospital due to continued decline in functional independence. Continued skilled therapy is important in order for patient to improve strength, safety, endurance, ADL independence, and functional transfers to reach PLOF. Eval Complexity Eval Charge Codes 37808 - Moderate Complexity PHYSICIAN CERTIFICATION: I certify the specified therapy services for Emiliana Painter are required, authorized, and reviewed every 30 days.
[2024-10-21] MEDS: CARBIDOPA/LEVODOPA CR 50/200MG TABLET 2 EACH PO ×2 (12:02→20:35)
[2024-10-21 16:00] VITALS: BP 160/53; PULSE 65; RESP 18; TEMP 36.6; O2SAT 98
[2024-10-21 16:47] LABS: POC Glucose,Bedside 163 (70-110)
--- NOTE | 2024-10-21 18:46 | PC.NURSE ---
PT A&OX4. RESTING SUPINE IN BED. TOLERATING RA WITH SATS >90%. DRESSING TO R BKA C/D/I. PT HAS NOT HAD AN APPETITE TODAY. TOLERATING PO FLUIDS WELL. NO COMPLAINTS OF PAIN THIS SHIFT. CALL LIGHT WITHIN REACH.
[2024-10-21 20:00] VITALS: BP 142/70; PULSE 62; RESP 17; TEMP 37; O2SAT 97
[2024-10-21 20:34] LABS: POC Glucose,Bedside 170 (70-110)
[2024-10-21] MEDS: PAT OWN MED ***ATORVASTATIN 20MG 20 MG PO (20:41)
[2024-10-22] VITALS: BP 159/72; PULSE 60; RESP 19; TEMP 36.7; O2SAT 98
[2024-10-22 04:00] VITALS: BMI 34.9
--- NOTE | 2024-10-22 05:13 | PC.NURSE ---
Pt A&OX4 and has tolerated room air. VSS. Lung sounds clear and bowel sounds active. Dressing to right BKA c/d/i. Purewick has remained in place and is draining well. No complaints at this time, call light within reach.
[2024-10-22 06:33] LABS: POC Glucose,Bedside 144 (70-110)
[2024-10-22] MEDS: METFORMIN 500 MG 1000 MG PO (06:49)
[2024-10-22 07:41] VITALS: BP 157/67; PULSE 65; RESP 18; TEMP 36.8; O2SAT 98
--- NOTE | 2024-10-22 07:42 | P.PN_ITS ---
Subjective *Date: 10/22/24 *Time: 08:42 Interval history: Patient states she slept a little. She denies any leg pain, chest pain, or shortness of breath. She has a pure wick in place with adequate urinary output. Bowels have not moved. Physical therapy worked with patient and she was a ssisted out of bed. She was able to bear weight on her left leg and rotate and sit. Physical therapy note reviewed. Recommendation is for retirement facility for ongoing rehab. Exam Data for Last 24 hours Vital signs and Labs for Last 24 Hours: Temp Pulse Resp BP Pulse Ox O2 Del Method 98.1 F 60 19 159/72 H 98 Room Air 10/22/24 00:00 10/22/24 00:00 10/22/24 00:00 10/22/24 00:00 10/22/24 00:00 10/22/24 06:42 Laboratory Results - last 24 hr 10/21/24 08:25: WBC 7.7, RBC 3.53 L, Hgb 9.6 L, Hct 31.3 L, MCV 88.7, MCH 27.2, MCHC 30.7 L, RDW 15.4, Plt Count 232, MPV 11.3 H, Neut % (Auto) 71.3, Lymph % (Auto) 19.0, [place] % (Auto) 5.4, Eos % (Auto) 3.4, Baso % (Auto) 0.6, Neut # (Auto) 5.5, Lymph # (Auto) 1.5, [place] # (Auto) 0.4, Eos # (Auto) 0.3, Baso # (Auto) 0.1, Total Counted 100, Neutrophils % (Manual) 78 H, Lymphocytes % (Manual) 18, Monocytes % (Manual) 4, Platelet Estimate Normal, Hypochromasia 1+, Sodium 139, Potassium 4.2, Chloride 107, Carbon Dioxide 26, Anion Gap 10.2, BUN 26 H, Creatinine 0.80, Estimated Creat Clear 87, Estimated GFR 72, Est GFR ( Amer) 87, Glucose 216 H, Calcium 9.5, Total Bilirubin 0.2, AST 24, ALT 23, Alkaline Phosphatase 73, Total Protein 7.1, Albumin 3.7, Globulin 3.4 H, Albumin/Globulin Ratio 1.1 10/21/24 16:40: POC Glucose 163 H 10/21/24 20:27: POC Glucose 170 H 10/22/24 06:22: POC Glucose 144 H I & O for Last 24 hours: Intake & Output 10/19/24 10/20/24 10/21/24 10/22/24 11:59 11:59 11:59 11:59 Intake Total 1440 / 1440 920 / 920 Output Total 850 / 850 800 / 800 Balance 590 / 590 120 / 120 Weight 217 lb 6 oz 217 lb 11.2 oz 217 lb 11.198 oz Constitutional Constitutional: no acute distress Comments: Sitting up in the bed completing her breakfast. Patient does assist with exam. *Routine Respiratory Exam Respiratory: Present CTA bilaterally (Anteriorly and posteriorly) *Routine Cardiovascular Exam Cardiovascular: Present RRR *Routine Abdominal Exam Abdominal: Present soft, normoactive bowel sounds and obese; Absent tenderness or distended *Routine Extremities Exam Comments: Right lower leg with a wrap and brace. Left leg without edema and good pedal pulses. Skin is intact. *Routine Neurological Exam Neurological: Present alert and oriented X3 Assessment and Plan *Assessment and plan (1) Unable to care for self: Status: Acute Category: Medical Code(s): Z78.9 - Other specified health status (2) Inability to walk: Status: Acute Category: Medical Code(s): R26.2 - Difficulty in walking, not elsewhere classified (3) Below-knee amputation of right lower extremity: Status: Acute Category: Medical Code(s): S88.111A - Complete traumatic amputation at level between knee and ankle, right lower leg, initial encounter (4) Obesity, Class II, BMI 35-39.9: Status: Acute Category: Medical Code(s): E66.812 - Obesity, class 2 (5) Tremor: Status: Acute Category: Medical Code(s): R25.1 - Tremor, unspecified (6) Peripheral arterial disease: Status: Chronic Category: Medical Code(s): I73.9 - Peripheral vascular disease, unspecified (7) Depression: Status: Acute Qualifiers: Active/Remission status: remission status unspecified Depression Type: major depressive disorder Major depression recurrence: unspecified whether recurrent Qualified Code(s): F32.9 - Major depressive disorder, single episode, unspecified Category: Medical Code(s): F32.A - Depression, unspecified (8) Hypertension: Status: Chronic Qualifiers: Hypertension type: unspecified Qualified Code(s): I10 - Essential (primary) hypertension Category: Medical Code(s): I10 - Essential (primary) hypertension (9) Hyperlipidemia: Status: Chronic Qualifiers: Hyperlipidemia type: other hyperlipidemia Qualified Code(s): E78.49 - Other hyperlipidemia Category: Medical Code(s): E78.5 - Hyperlipidemia, unspecified (10) Type 2 diabetes mellitus: Status: Chronic Qualifiers: Diabetes mellitus complication detail: with polyneuropathy Diabetes mellitus complication status: with neurologic complications Diabetes mellitus rat exterminator insulin use: with penitentiary use Qualified Code(s): E11.42 - Type 2 diabetes mellitus with diabetic polyneuropathy; Z79.4 - buttermilk drier operator (current) use of insulin Category: Medical Code(s): E11.9 - Type 2 diabetes mellitus without complications (11) Diabetes mellitus with diabetic neuropathy: Status: Chronic Qualifiers: Diabetes mellitus rat exterminator insulin use: with penitentiary use Diabetes mellitus type: type 2 Qualified Code(s): E11.40 - Type 2 diabetes mellitus with diabetic neuropathy, unspecified; Z79.4 - FPC (current) use of insulin Category: Medical Code(s): E11.40 - Type 2 diabetes mellitus with diabetic neuropathy, unspecified Plan Care management is working on disposition for ongoing rehab. Dr. Jones entry - Saw patient, agree with above note. She is ready for discharge, awaiting placement.
[2024-10-22] MEDS: PAT OWN MED ***ASPIRIN EC 81MG 81 MG PO (08:33)
[2024-10-22] MEDS: FLUOXETINE 40 MG 1 EACH PO (08:33)
[2024-10-22] MEDS: DULOXETINE 30MG CAPSULE.DR 30 MG PO (08:34)
[2024-10-22] MEDS: RIVAROXABAN 2.5 MG PO (08:34)
[2024-10-22] MEDS: ENOXAPARIN 40MG/0.4ML SYRINGE 40 MG SUBCUT (08:34)
[2024-10-22] MEDS: FENOFIBRATE 145 MG 1 EACH PO (08:34)
[2024-10-22] MEDS: METOPROLOL SUCCINATE 50 MG 150 MG PO (08:34)
[2024-10-22] MEDS: CARBIDOPA/LEVODOPA CR 50/200MG TABLET 2 EACH PO ×2 (08:35→12:25)
[2024-10-22] MEDS: PAT OWN MED ***DULOXETINE 60 MG 1 EACH PO (08:35)
[2024-10-22 11:36] LABS: POC Glucose,Bedside 166 (70-110)
[2024-10-22] MEDS: humaLOG 100 UNITS/ML 10ML VIAL (SSI) SUBCUT (12:25)
--- NOTE | 2024-10-22 12:29 | EXP.DC.SUM ---
General Admission date:: 10/20/24 Discharge date: 10/22/24 HPI HPI HPI: Ms. Painter is a patient of [facility] who recently had a right below the knee amputation at , due to chronic osteomyelitis, with subsequent post hospital care at [facility]. She states she was discharged home a few days ago and was supposed to start home health care tomorrow. She states that she is unable to complete transfers and care for herself at home. She called the home health agency and was directed to come to the ER for further evaluation. Hospital Course Hospital Course Hospital Course: Patient was admitted from the emergency room for correction facility admission because she was unable to perform activities of daily living and there was no additional help at home to accomplish tasks. Care management was consulted. She did participate with physical therapy after admission and was able to bear weight on her left leg and transfer to a chair with much assistance. She has denied pain in her right leg at site of below the knee amputation. She did experience some nausea but has been able to eat. She has had a pure wick in place but was continent of urine and stool at home. A bed at [facility] was obtained today and patient is stable for transfer. She will continue on meds as per list. She will continue with physical therapy and Occupational Therapy. Exam Data for Last 24 hours Vital signs and Labs for Last 24 Hours: Temp Pulse Resp BP Pulse Ox O2 Del Method 98.2 F 65 18 157/67 H 98 Room Air 10/22/24 07:41 10/22/24 07:41 10/22/24 07:41 10/22/24 07:41 10/22/24 07:41 10/22/24 11:00 Laboratory Results - last 24 hr 10/21/24 16:40: POC Glucose 163 H 10/21/24 20:27: POC Glucose 170 H 10/22/24 06:22: POC Glucose 144 H 10/22/24 11:28: POC Glucose 166 H I & O for Last 24 hours: Intake & Output 10/20/24 10/21/24 10/22/24 10/23/24 11:59 11:59 11:59 11:59 Intake Total 1440 / 1440 920 / 920 Output Total 850 / 850 800 / 800 0 / 0 Balance 590 / 590 120 / 120 0 / 0 Weight 217 lb 6 oz 217 lb 11.2 oz 217 lb 11.198 oz Narrative: Physical exam at [facility] 10/22/2024 Constitutional Constitutional: no acute distress Comments: Sitting up in the bed completing her breakfast. Patient does assist with exam. *Routine Respiratory Exam Respiratory: Present CTA bilaterally (Anteriorly and posteriorly) *Routine Cardiovascular Exam Cardiovascular: Present RRR *Routine Abdominal Exam Abdominal: Present soft, normoactive bowel sounds and obese; Absent tenderness or distended *Routine Extremities Exam Comments: Right lower leg with a wrap and brace. Left leg without edema and good pedal pulses. Skin is intact. *Routine Neurological Exam Neurological: Present alert and oriented X3 Results Data Completed and Pending Completed studies during hospitalization [Text1]: 10/21/24 08:25: WBC 7.7, RBC 3.53 L, Hgb 9.6 L, Hct 31.3 L, MCV 88.7, MCH 27.2, MCHC 30.7 L, RDW 15.4, Plt Count 232, MPV 11.3 H, Neut % (Auto) 71.3, Lymph % (Auto) 19.0, Piatt % (Auto) 5.4, Eos % (Auto) 3.4, Baso % (Auto) 0.6, Neut # (Auto) 5.5, Lymph # (Auto) 1.5, Piatt # (Auto) 0.4, Eos # (Auto) 0.3, Baso # (Auto) 0.1, Total Counted 100, Neutrophils % (Manual) 78 H, Lymphocytes % (Manual) 18, Monocytes % (Manual) 4, Platelet Estimate Normal, Hypochromasia 1+, Sodium 139, Potassium 4.2, Chloride 107, Carbon Dioxide 26, Anion Gap 10.2, BUN 26 H, Creatinine 0.80, Estimated Creat Clear 87, Estimated GFR 72, Est GFR ( Amer) 87, Glucose 216 H, Calcium 9.5, Total Bilirubin 0.2, AST 24, ALT 23, Alkaline Phosphatase 73, Total Protein 7.1, Albumin 3.7, Globulin 3.4 H, Albumin/Globulin Ratio 1.1 10/21/24 16:40: POC Glucose 163 H 10/21/24 20:27: POC Glucose 170 H 10/22/24 06:22: POC Glucose 144 H Labs on day of discharge: Labs from last 24 hours 10/22/24 10/22/2410/21/25 11:28 06:22 20:27 POC Glucose 166 H 144 H 170 H 10/21/24 16:40 POC Glucose 163 H DS: Diagnosis Discharge Diagnosis (1) Unable to care for self: Status: Acute Code(s): Z78.9 - Other specified health status (2) Inability to walk: Status: Acute Code(s): R26.2 - Difficulty in walking, not elsewhere classified (3) Below-knee amputation of right lower extremity: Status: Acute Code(s): S88.111A - Complete traumatic amputation at level between knee and ankle, right lower leg, initial encounter (4) Obesity, Class II, BMI 35-39.9: Status: Acute Code(s): E66.812 - Obesity, class 2 (5) Tremor: Status: Acute Code(s): R25.1 - Tremor, unspecified (6) Peripheral arterial disease: Status: Chronic Code(s): I73.9 - Peripheral vascular disease, unspecified (7) Depression: Status: Acute Code(s): F32.A - Depression, unspecified Qualifiers: Depression Type: major depressive disorder Major depression recurrence: unspecified whether recurrent Active/Remission status: remission status unspecified Qualified Code(s): F32.9 - Major depressive disorder, single episode, unspecified (8) Hypertension: Status: Chronic Code(s): I10 - Essential (primary) hypertension Qualifiers: Hypertension type: unspecified Qualified Code(s): I10 - Essential (primary) hypertension (9) Hyperlipidemia: Status: Chronic Code(s): E78.5 - Hyperlipidemia, unspecified Qualifiers: Hyperlipidemia type: other hyperlipidemia Qualified Code(s): E78.49 - Other hyperlipidemia (10) Type 2 diabetes mellitus: Status: Chronic Code(s): E11.9 - Type 2 diabetes mellitus without complications Qualifiers: Diabetes mellitus long chain beamer insulin use: with long chain beamer use Diabetes mellitus complication status: with neurologic complications Diabetes mellitus complication detail: with polyneuropathy Qualified Code(s): E11.42 - Type 2 diabetes mellitus with diabetic polyneuropathy; Z79.4 - long term care phlebotomist (current) use of insulin (11) Diabetes mellitus with diabetic neuropathy: Status: Chronic Code(s): E11.40 - Type 2 diabetes mellitus with diabetic neuropathy, unspecified Qualifiers: Diabetes mellitus type: type 2 Diabetes mellitus long chain beamer insulin use: with nursing home use Qualified Code(s): E11.40 - Type 2 diabetes mellitus with diabetic neuropathy, unspecified; Z79.4 - longterm (current) use of insulin Meds Home Medications and Allergies Home Medications ?Medication ?Instructions ?Recorded ?Confirmed ?Type atorvastatin 20 mg tablet 20 mg PO HS 07/05/17 10/20/24 History meloxicam 7.5 mg tablet 7.5 mg PO DAILY 07/05/17 10/20/24 History calcium 600 mg (as 1 each PO BID 10/09/18 10/20/24 History carbonate)-vitamin D3 20 mcg (800 unit) tablet aspirin 81 mg tablet,delayed 81 mg PO DAILY 05/09/19 10/20/24 History release (Jacki Low Dose Aspirin) fenofibrate nanocrystallized 145 145 mg PO DAILY 10/30/19 10/20/24 History mg tablet lisinopril 20 mg tablet 20 mg PO DAILY Hypertension 10/30/19 10/20/24 History metoprolol succinate 50 mg 150 mg PO DAILY 07/05/22 10/20/24 History tablet,extended release 24 hr semaglutide 7 mg tablet (Rybelsus) 7 mg PO DAILY 11/07/23 10/20/24 History rivaroxaban 2.5 mg tablet (Xarelto) 2.5 mg PO BID #60 tabs 07/18/24 10/20/24 Rx duloxetine 30 mg capsule,delayed 30 mg PO DAILY #90 caps 08/09/24 10/20/24 Rx release duloxetine 60 mg capsule,delayed 60 mg PO DAILY #90 caps 08/09/24 10/20/24 Rx release carbidopa ER 50 mg-levodopa 200 mg 2 tab PO TID 09/11/24 10/20/24 History tablet,extended release gabapentin 300 mg capsule 300 mg PO TIDP PRN neuropathic pain 09/11/24 10/20/24 History insulin glargine 100 unit/mL 30 unit SQ BID 09/11/24 10/20/24 History subcutaneous solution metformin 500 mg tablet 1,000 mg PO BID 09/11/24 10/20/24 History nitroglycerin 0.4 mg/hr 1 patch transdermal DAILY 30 days 09/23/24 10/20/24 Rx transdermal 24 hour patch #30 ea (Nitro-Dur) fluoxetine 20 mg capsule 20 mg PO DAILY 10/20/24 10/20/24 History lumateperone 42 mg capsule 42 mg PO HS 10/20/24 10/20/24 History (Caplyta) magnesium gluconate 27 mg 27 mg PO DAILY 10/20/24 10/20/24 History magnesium (500 mg) tablet New Prescriptions to Start Prescriptions: Allergies Allergy/AdvReac Type Severity Reaction Status Date / Time No Known Allergies Allergy Verified 10/20/24 08:30 Discharge Plan Disposition Patient Disposition: [facility] Condition: Fair Discharge Order Discharge Orders: Discharge Order (Routine); Ordered 10/22/24 Ordered By: Ricky Jones Follow up Plan Follow up with: Ricky Jones MD [Primary Care Provider] - Enter time for follow up (After discharge from [facility]) Prescriptions/Medication Reconciliation: Continued aspirin [Jacki Low Dose Aspirin] 81 mg tablet,delayed release (DR/EC) 81 mg PO DAILY duloxetine 60 mg capsule,delayed release(DR/EC) 60 mg PO DAILY Qty: 90 1RF Rx Instructions: take along with 30mg dose duloxetine 30 mg capsule,delayed release(DR/EC) 30 mg PO DAILY Qty: 90 0RF Rx Instructions: take along with 60mg dose fenofibrate nanocrystallized 145 mg tablet 145 mg PO DAILY Xarelto 2.5 mg tablet 2.5 mg PO BID Qty: 60 2RF nitroglycerin [Nitro-Dur] 0.4 mg/hr patch 24 hour 1 patch transdermal DAILY 30 Days Qty: 30 2RF Rx Instructions: allow nitrate-free interval of approx. 10-12 hrs per 24-hour period apply to front of right ankle to help with circulation to right amputation flap site calcium carbonate-vitamin D3 1 EACH tablet 1 each PO BID insulin glargine 100 unit/mL solution 30 unit SQ BID metformin 500 mg tablet 1,000 mg PO BID carbidopa-levodopa 50-200 mg tablet extended release 2 tab PO TID gabapentin 300 MG capsule 300 mg PO TIDP PRN (Reason: neuropathic pain) Caplyta 42 mg Capsule 42 mg PO HS fluoxetine 20 mg capsule 20 mg PO DAILY magnesium gluconate 27 mg magnesium (500 mg) Tablet 27 mg PO DAILY atorvastatin 20 MG tablet 20 mg PO HS meloxicam 7.5 MG tablet 7.5 mg PO DAILY lisinopril 20 mg tablet 20 mg PO DAILY metoprolol succinate 50 mg tablet extended release 24 hr 150 mg PO DAILY Rybelsus 7 mg tablet 7 mg PO DAILY Problem Reconciliation Problems Reviewed?: Yes Patient Discharge Instructions ACTIVITY: Limited activity DIET: continue same diet Patient Instructions: How to Prevent Falls Print Language: Bruneian Providers Primary Care Provider: Ricky Jones Admit Provider: Ricky Jones Attending Provider: Ricky Jones
== END 2024-10-22 14:35 ==
LOC: ER 08:53 → 2ND 08:54
PROVIDERS: Nurse Practitioner Family; Admitting Provider Family Medicine; Emergency Provider Student in an Organized Health Care Education/Training Program; PCP Family Medicine; Visit Provider Family Medicine
DX: R26.2 Difficulty in walking, not elsewhere classified (principal); Z89.511 Acquired absence of right leg below knee; E66.812 Obesity, class 2; R25.1 Tremor, unspecified; I73.9 Peripheral vascular disease, unspecified; F32.9 Major depressive disorder, single episode, unspecified; I10 Essential (primary) hypertension; E78.49 Other hyperlipidemia; E11.42 Type 2 diabetes mellitus with diabetic polyneuropathy; Z79.4 Long term (current) use of insulin; Z73.89 Other problems related to life management difficulty; Z74.1 Need for assistance with personal care; Z79.85 Long-term (current) use of injectable non-insulin antidiabetic drugs; Z68.35 Body mass index [BMI] 35.0-35.9, adult; Z79.01 Long term (current) use of anticoagulants; Z79.82 Long term (current) use of aspirin; Z74.2 Need for assistance at home and no other household member able to render care
CPT/HCPCS: 36415; 80053; 82962; 85007; 85014; 85018; 85048; 85049; 97110; 97163; 97166; 97530; 99285; G0378; J1650

== ENCOUNTER 2025-04-21 16:02 | Outpatient (CLI) | payer MEDICARE, OTHER, SELFPAY ==
--- OUTSIDE RECORDS SUMMARY | 2025-04-21 16:05 | XMS_ITS | Clinical Summary ---
Author Organization [facility] Address [address] [place] [address] Care Team Providers Care Park Interpretive Ranger Name Role Phone Ricky Jones MD Primary Care Provider + [phone] Allergies No known active allergies Medications DULoxetine (CYMBALTA) 30 MG capsule 1 capsule Daily. 0 Active DULoxetine (CYMBALTA) 60 MG capsule 1 capsule Daily. 0 Active FLUoxetine (PROzac) 40 MG capsule 1 capsule Daily. 0 Active lisinopril (PRINIVIL,ZESTRIL) 20 MG tablet 1 tablet 2 (Two) Times a Day. 0 Active meloxicam (MOBIC) 7.5 MG tablet Take 1 tablet by mouth Daily. Active atorvastatin (LIPITOR) 20 MG tablet Take 1 tablet by mouth Daily. Active Multiple Vitamins-Minerals (MULTIVITAMIN ADULT PO) Take 1 tablet by mouth Daily. Active coenzyme Q10 100 MG capsule Take 1 capsule by mouth Daily. Active ASPIRIN 81 PO Take 1 tablet by mouth Daily. Active Biotin 1 MG capsule Take by mouth. Active Cinnamon 500 MG tablet Take by mouth. Active glucosamine-chondr oitin 500-400 MG capsule capsule Take by mouth 3 (Three) Times a Day With Meals. Active calcium citrate-vitamin d (CITRACAL) 200-250 MG-UNIT tablet tablet Take by mouth Daily. Active Krill Oil 1000 MG capsule Take by mouth. Active BD Insulin Syringe U/F 31G X 11/15 1 ML misc Use as directed 100 each 5 0 Active Rybelsus 7 MG tablet 1 Active metoprolol succinate XL (TOPROL-XL) 50 MG 24 hr tablet 1 Active cyanocobalamin (VITAMIN B-12) 500 MCG tablet Take 2 tablets by mouth Daily. Active carbidopa-levodopa (SINEMET) 25-100 MG per tablet Take by mouth 3 (Three) Times a Day. Pt takes 3 tablets 3x daily 2 Active Rexulti 1 MG tablet Take 1 mg by mouth Daily. 2 Active Lantus 100 UNIT/ML injection INJECT 80 UNITS EVERY MORNING AND 80 UNITS EVERY EVENING 140 mL 3 3 Active B-D UF III MINI PEN NEEDLES 31G X 5 MM misc USE FOUR TIMES A DAY 500 each 3 3 Active metFORMIN (GLUCOPHAGE) 500 MG tablet TAKE 2 TABLETS TWICE A DAY WITH MEALS 360 tablet 3 3 Active NovoLOG FlexPen 100 UNIT/ML solution pen-injector sc pen INJECT 50 UNITS WITH BREAKFAST, 40 UNITS WITH LUNCH AND 50 UNITS WITH SUPPER 135 mL 3 3 Active gabapentin (NEURONTIN) 300 MG capsuleIndications :Uncontrolled type 2 diabetes mellitus with hyperglycemia TAKE 1 CAPSULE THREE TIMES A DAY 270 capsule 1 4 Active fenofibrate (TRICOR) 145 MG tablet TAKE 1 TABLET DAILY 90 tablet 5 Active Active Problems Problem Noted Date Diagnosed Date Uncontrolled type 2 diabetes mellitus with hyper glycemia 12/02/2020 Overview (07/06/2021): Hx of dka with sglt2 Intolerant of glp1- but tolerates oral semaglutide Assessment & Plan (07/25/2023 11:14 AM EST): Diabetes is unchanged. Continue current treatment regimen. Diabetes will be reassessed in 6 months. Assessment & Plan (01/04/2023 10:02 AM EDT): Improved but too many lows. Will reduce insulin per instructions Will get fasting labs done Assessment & Plan (07/07/2022 11:43 AM EST): Diabetes is improving with treatment. Continue current treatment regimen. Diabetes will be reassessed in 6 months. Assessment & Plan (01/04/2022 12:17 PM EDT): Dramatic improvement in blood sugar to the point where we need to reduce her insulin Will have her take lantus 80 units bid instead of 100 Will reduce each of her log doses by 5 units Assessment & Plan (07/06/2021 11:46 AM EST): a1c is improved. I am pleasantly surprised that she is able to tolerate the oral semaglutide- she has not tolerated other glp1 in past. For now, let's sit tight . Assessment & Plan (12/02/2020 3:48 PM EDT): Diabetes control is essentially unchanged. I have no more meds to fix this. Diet and exercise are her only options Or metabolic surgery. . Resolved Problems Problem Noted Date Diagnosed Date Resolved Date Diabetes mellitus type 2, un controlled, with complications 04/23/2020 12/02/2020 Assessment & Plan (04/23/2020 12:05 PM EDT): A1C IS WORSE. DEPRESSION AND STRESS OVER THE PANDEMIC ARE THE CULPRITS HERE. SHE IS ON GOOD MEDS AND THERE ARE NO OTHER MEDS I CAN OFFER HER. SHE HAS TO WORK ON HER DIET AND EXERCISE TO GET THIS DOWN Family History Medical History Relation Name Comments Arthritis Father Hypertension Father Diabetes Mother Hypertension Mother Diabetes Sister Relation Name Status Comments Father Mother Alive Sister Alive Social History Tobacco Use Types Packs/Day Years Used Date Smoking Tobacco: Former Cigarettes Q uit: 1991 Smokeless Tobacco: Never Tobacco Cessation:Counseling Given: Not Answered Alcohol Use Standard Drinks/Week Comments Not Currently 0 (1 standard drink = 0.6 oz pur e alcohol) Abuse Screen Answer Date Recorded Unsafe at Home or Work/School Not on file Feels Threatened by Someone? Not on file 04/2023 Does Anyone Keep You from Co ntacting Others or Doint Things Outside the Home? Not on file 04/11/2023 Physical Sign of Abuse Present Not on file 1 Housing Stability Answer Date Recorded Current Living Arrangements Not on file 04/02 Potentially Unsafe Housing Conditions Not on jose e 04/11/2023 Family and Community Support Answer Leland e Recorded Help with Day-to-Day Activities Not on file 04/11/2023 Lonely or Isolated Not on file 04/11/2023 Employment Answer Date Recorded Do you want help finding or keeping work or a ajay b? Not on file 04/11/2023 Disabilities Answer Date Recorded Concentrating, Remembering, or Making Decisions Difficulty Not on file 04/11/2023 Doing Errands Independently Difficulty Not on fi le 04/11/2023 Education Answer Date Recorded Help with school or training? Not on file Preferred Language Not on file 04/11/2023 Comments Unknown Sex and Gender Information Value Date Recorded Sex Assigned at Not on file Legal Sex Female 1:42 PM EDT Gender Identity Not on file Sexual Orientation Not on file Last Filed Vital Signs Vital Sign Reading Time Taken Comments Blood Pressure 128/79 07/25/2023 10:49 AM EST Pulse 71 07/25/2023 10:49 AM EST Temperature 36.7 C (98 F) 04/23/2020 11:26 AM EDT Respiratory Rate - - Oxygen Saturation 94% 07/25/2023 10:49 AM EST Inhaled Oxygen Concentration - - Weight 118 kg (260 lb) 07/25/2023 10:49 AM EST Height 167.6 cm (5' 6 ) 07/25/2023 10:49 AM EST Body Mass Index 41.97 07/25/2023 10:49 AM EST Plan of Treatment Health Maintenance Due Date Last Done Comments DXA SCAN 1960 Pneumococcal Vaccine 50+ (1 of 2 - PCV) 1978 TDAP/TD VACCINES (1 - Tdap) 1978 COLOGUARD 02/02/2004 COLON CANCER SCREENING 5 YEA R SIGMOIDOSCOPY 02/02/2004 COLONOSCOPY 02/02/2004 COLORECTAL CANCER SCREENING 02/02/2004 CT COLONOGRAPHY 02/02/2004 FECAL OCCULT BLOOD TEST 02/02/2004 FIT Testing (1 year) 02/02/2004 ZOSTER VACCINE (1 of 2) 2009 ANNUAL WELLNESS VISIT 04/23/2020 HEPATITIS C SCREENING 04/23/2020 URINE MICROALBUMIN-CREATININ E RATIO (uACR) 01/05/2024 01/04/2023 HEMOGLOBIN A1C 01/23/2024 07/25/2023, 07/0 10/2022, 07/07/2022, Additional history exists DIABETIC EYE EXAM 02/17/2024 02/16/2023 (Pa tient-Reported (Performed Externally)), 03/16/2022 (Patient-Reported (Performed Externally)), 02/15/2021 INFLUENZA VACCINE 01/31/2025 04/18/2022, , 06/23/2020, Additional history exists COVID-19 Vaccine (2024-08 6 season) 2025 04/18/2023, 06/03/2021, 11/13/2020, Additional history exists MAMMOGRAM 06/27/2025 06/27/2023, 06/03, 06/14/2022, Additional history exists DIABETIC FOOT EXAM Discontinued 05/18/2022, 05/19/2021 Procedures Procedure Name Priority Date/Time Associated Diagnosis Comments POCT GLYCOSYLATED HEMOGLOBIN (HGB A1C) Routine 07/25/2023 10:58 AM EST Uncontrolled type 2 diabetes mellitus with hyperglycemia MICROALBUMIN / CREATININE URINE RATIO Routine 01/04/2023 10:05 AM EDT Uncontrolled type 2 diabetes mellitus with hyperglycemia SCANNED - EYE EXAM 02/15/2021 from Last 3 Months or Most Recently Relevant to Health Maintenance Results * (ABNORMAL) POC Glycosylated Hemoglobin (Hb A1C) (07/25/2023 10:58 AM EST) Hemoglobin A1C 6.7(A) 4.5 - 5.7 % [facility] Lot Number [id number] [facility] Expiration Date 01/29/25 [facility] Blood 07/25/2023 10:5 8 AM EST Renard Pierson MD POINT OF CARE TEST ORD ERABLES Final Result [facility]
[address] [place] [address], * Microalbumin / Creatinine Urine Ratio - Urine, Clean Catch (01/04/2023 10:05 AM EDT) Microalbumin/C reatinine Ratio 56.4 mg/g 01/04/2023 6:46 PM EDT [facility] Creatinine, Urine 74.5 mg/dL 01/04/2023 6:46 PM EDT [facility] Microalbumin, Urine 4.2 mg/dL 01/04/2023 6:46 PM EDT [facility] Urine Urine specimen obtained by clean catch procedure / Unknown Collection / Unknown 01/04/2023 10:05 AM EDT 01/04/2023 10:05 AM EDT us Renard Pierson MD URINE ORDERABLES Final Result [facility]
[address] [place] [address], * SCANNED - EYE EXAM (02/15/2021) Anatomical Region Laterality Modality Other us Renard Pierson MD CHART REVIEW TABS F inal Result from Last 3 Months or Most Recently Relevant to Health Maintenance Insurance MEDICARE A & B Member Subscriber Plan / Payer (Ef fective 2013-Present) Name:Emiliana Painter Member ID:[id number] Relation to Subscriber:Self Name:Emiliana Painter Subscriber ID:[id number] Payer ID:[id number] Group ID:Not on file Type:Not on file Address: [facility] [id number] [address] Care Teams Park Interpretive Ranger Relationship Specialty Start Date End Date Ricky Jones MD [address] [facility] [address] [facility] [address] [facility] [address] PCP - General Family Medicine 04/23/20
--- NOTE | 2025-04-21 16:06 | XR_ITS ---
FINAL REPORT CLINICAL HISTORY: left foot swelling, r/o charcot COMPARISON: 01/07/2019 FINDINGS: Three views show no evidence of acute displaced fracture or dislocation of the visualized bony architecture. There is severe hallux valgus deformity, worse than previous exam. There are moderate to severe degenerative changes of the midfoot which could be related to degenerative change or neuropathic disease. There are mild degenerative changes of the hindfoot. IMPRESSION: Progression of degenerative disease of the midfoot which could be related to primary degenerative change or neuropathic disease. Worsening hallux valgus deformity. Reviewed, Interpreted and Dictated by Clifton Rodriguez MD Transcribed by Katlyn Hernandez Authenticated and . [facility]
--- OUTSIDE RECORDS SUMMARY | 2025-04-21 16:06 | XMS_ITS | Clinical Summary ---
Author Organization Healthcare Address [address] [place] [address] Care Team Providers Care Notcher Name Role Phone Ricky Jones MD Primary Care Provider [phone] Allergies No known active allergies Medications atorvastatin (Lipitor) 20 MG tablet Take 1 tablet by mouth nightly. 12/27/19 21 Active semaglutide (Rybelsus) 7 MG tablet Take 7 mg by mouth daily. 06/08/20 21 Active metFORMIN (Glucophage) 500 MG tablet Take 2 tablets by mouth in the morning and 2 tablets in the evening. Take with meals. 10/06/19 21 Active metoprolol succinate XL (Toprol-XL) 50 MG 24 hr tablet Take 1 tablet by mouth daily. 12/27/19 21 Active meloxicam (Mobic) 7.5 MG tablet Take 1 tablet by mouth daily. Active lisinopril 20 MG tablet Take 1 tablet by mouth daily. 06/07/20 21 Active DULoxetine (Cymbalta) [address] capsule Take 1 capsule by mouth daily. 05/03/20 21 Active fenofibrate (Tricor) 145 MG tablet Take 1 tablet by mouth daily. 12/27/19 21 Active FLUoxetine (PROzac) 40 MG capsule Take 1 capsule by mouth daily. 05/03/20 21 Active insulin aspart (NovoLOG FLEXPEN) 100 UNIT/ML injection Inject under the skin. Per sliding scale 12/22/19 21 Active cyanocobalamin (Vitamin B-12) 500 MCG tablet Take 2 tablets by mouth in the morning. Active insulin glargine (Lantus SoloStar) 100 UNIT/ML injection pen Inject 30 Units under the skin in the morning and 30 Units before bedtime. Active aspirin 81 MG EC tablet Take 1 tablet by mouth daily. Active Multiple Vitamin (multivitamin) tablet Take 1 tablet by mouth daily. Active rivaroxaban (Xarelto) 2.5 MG tablet Take 1 tablet by mouth in the morning and 1 tablet before bedtime. Active carbidopa-levodopa CR (Sinemet CR) 50-200 MG ER tablet Take 2 tablets by mouth in the morning and 2 tablets in the evening and 2 tablets before bedtime. Do not crush or chew. Active senna-docusate (Urvashi-Colace) 8.6-50 MG tablet Take 2 tablets by mouth in the morning and 2 tablets before bedtime. 10/03/19 25 Active polyethylene glycol (Miralax) 17 g packet Take 17 g by mouth in the morning and 17 g before bedtime. 10/03/19 25 Active oxyCODONE (Roxicodone) 10 MG immediate release tablet Take 1 tablet by mouth every 4 (four) hours as needed for severe pain. 10/03/19 25 Active oxyCODONE (Roxicodone) 5 MG immediate release tablet Take 1 tablet by mouth every 4 (four) hours as needed for moderate pain. 10/03/19 25 Active ondansetron ODT (Zofran-ODT) 4 MG disintegrating tablet Dissolve 1 tablet on the tongue every 6 hours as needed for nausea or vomiting. 10/03/19 25 Active methocarbamol (Robaxin) 500 MG tablet Take 1 tablet by mouth in the morning and 1 tablet in the evening and 1 tablet before bedtime. 10/03/19 25 Active acetaminophen (Tylenol) 500 MG tablet Take 2 tablets by mouth every 6 (six) hours. 10/03/19 25 Active bisacodyl (Dulcolax) 10 MG suppository Insert 1 suppository into the rectum daily. 10/04/19 25 Active gabapentin (Neurontin) 300 MG capsule Take 1 capsule by mouth in the morning and 1 capsule in the evening and 1 capsule before bedtime. 10/03/19 25 Active DULoxetine (Cymbalta) [address] capsule Take 3 capsules by mouth daily. Do not crush or chew. 10/03/19 25 Active Active Problems Problem Noted Date Diagnosed Date Class III obesity with body mass index (BMI) of 40.0 or higher 11/12/2024 Primary osteoarthritis of right knee 11/12/2024 Hyponatremia 11/12/2024 Hypokalemia 11/12/2024 Postoperative anemia due to acute blood loss 07/2024 Overview (10/02/2024): May require iron, folate, B12 supplementation as appropriate. stable. Follow up with family doctor. 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 09/27: MARCELINA CERDA: Follow up [facility] 4-[address] Villeda for wound check and staple removal. Leukocytosis down trending Afebrile Blood cultures NG day 5 PT/OT recommend acute rehab on discharge Discharge to 10/02/24 Apply ROOKE brace to amputated lower extremity to prevent knee contracture; use waist belt attachment connected to ROOKE if mobilizing out of bed. Remove ROOKE during skin assessments and assess for ROOKE proper positioning during hourly rounding. Knee should be centered in the ROOKE window under detachable Velcro knee piece labeled GENTLE in orange writing. No pillows under ROOKE brace or hip. Wash incision with soap and water daily. Please notify Vascular Surgery Nurse Navigator, Mookie Mayo with any questions or concerns at [phone]. It is important that you get your scheduled imaging completed prior to your follow up appointment with your surgeon. We try our best to have your imaging and follow up appointment on the same day, it may not always be possible. Please bring your list of medications with you. Please bring your parking ticket in for validation. Other hyperlipidemia 09/30/2024 Overview (10/02/2024): Atorva 20 daily - resume Fenofibrate 145 daily - resume Continue current medical management, chronic, stable. Follow up with family doctor. Parkinson disease 09/30/2024 Overview (10/02/2024): Sinemet CR 50/200 2tabs tid - cont Continue current medical management, chronic, stable. Follow up with family doctor. Primary hypertension 09/30/2024 Overview (10/02/2024): Lisinopril 20 daily - cont Metoprolol ER 50 daily - cont Continue current medical management, chronic, stable. Follow up with family doctor. Anxiety and depression 09/30/2024 Overview (10/02/2024): Duloxetine 90 daily - cont Fluoxetine 40 daily - cont Continue current medical management, chronic, stable. Follow up with family doctor. PAD (peripheral artery disease) 09/30/2024 Overview (10/02/2024): Asa 81 daily - cont Rivaroxaban 2.5 bid - continue Continue current medical management, chronic, stable. Follow up with family doctor. Obesity with serious comorbidity 09/30/2024 Overview (10/02/2024): BMI: 39.87 Complicates all aspects of care. Continue current medical management, chronic, stable. Follow up with family doctor. Amputation stump infection 09/25/2024 Overview (09/30/2024): See NSTI Class 3 severe obesity due t o excess calories with body mass index (BMI) of 40.0 to 44.9 in adult 05/20/2024 Venous insufficiency (chronic) (peripheral) 05/03 Osteomyelitis 05/20/2024 Idiopathic osteoarthritis 05/20/2024 Malignant neoplasm of overla pping sites of left breast in female, estrogen receptor positive 06/09/2021 Cancer Staging:Clinical stage from 12/11/2013:Stage IIB(T3, N0, M0) - Unsigned Overview (09/30/2024): Complicates all aspects of care Continue current medical management, chronic, stable. Follow up with family doctor. Uncontrolled type 2 diabetes mellitus with hyper glycemia 12/02/2020 Overview (10/02/2024): Latest Reference Range & Units 09/30/24 12:43 09/30/24 16:30 09/30/24 19:38 10/01/24 03:11 10/01/24 08:30 POCT Glucose 74 - 99 mg/dL 366 (H) 258 (H) 252 (H) 201 (H) 184 (H) A1c 5.9 (August 2024) AC/HS FS Novolog SSI - cont Lantus 30u qhs - continue Semaglutide - resume Metformin - resume Continue current medical management, chronic, stable. Follow up with family doctor. Encounters Date Type Department Care Team Description 02/13/2025 11:40 AM EDT Office Visit [facility] [address] [place] [address] Sridhar Mejia DO S/P BKA (below knee amputation) unilateral, right (CMS/HCC) (Primary Dx); Parkinson's disease, unspecified whether dyskinesia present, unspecified whether manifestations fluctuate (CMS/HCC); Activity of daily living alteration; Other abnormalities of gait and mobility 02/13/2025 Travel from Last 3 Months Family History Medical History Relation Name Comments Lung cancer Other Family history of lung cancer Relation Name Status Comments Other Social History Tobacco Use Types Packs/Day Years Used Date Smoking Tobacco: Never Smokeless Tobacco: Never Tobacco Cessation:Counseling Given: Not Answered Humiliation, Afraid, Rape, and Kick questionnair e Answer Date Recorded Within the last year, have y ou been afraid of your partner or ex-partner? No 09/26/2024 Within the last year, have y ou been humiliated or emotionally abused in other ways by your partner or ex-partner? No Within the last year, have y ou been kicked, hit, slapped, or otherwise physically hurt by your partner or ex-partner? No 09/26/2024 Within the last year, have y ou been raped or forced to have any kind of sexual activity by your partner or ex-partner? No 09/26/2024 PHQ-2 Answer Date Recorded Patient Health Questionnaire-2 Score 2 02/13/2025 Hunger Vital Sign Answer Date Recorded Within the past 12 months, y ou worried that your food would run out before you got the money to buy more. Never true 09/27/19 25 Within the past 12 months, t he food you bought just didn't last and you didn't have money to get more. Never true 09/26/2024 PRAPARE - Transportation Answer Date Re corded In the past 12 months, has l ack of transportation kept you from medical appointments or from getting medications? No 09/01 In the past 12 months, has l ack of transportation kept you from meetings, work, or from getting things needed for daily living? No 09/26/2024 Housing Stability Vital Sign Answer Leland e Recorded In the last 12 months, was t here a time when you were not able to pay the mortgage or rent on time? No 09/26/2024 In the past 12 months, how m any times have you moved where you were living? 0 09/26/2024 At any time in the past 12 m [facility], were you homeless or living in a care home (including now)? No 09/26/2024 Utilities Answer Date Recorded In the past 12 months has th e el?, gas, oil, or water company threatened to shut off services in your home? No 09/26/2024 Comments No Sex and Gender Information Value Date Recorded Sex Assigned at Not on file Legal Sex Female 6:44 PM EDT Gender Identity Not on file Sexual Orientation Not on file Last Filed Vital Signs Vital Sign Reading Time Taken Comments Blood Pressure 88/46 02/13/2025 11:38 AM EDT Pulse 52 02/13/2025 11:38 AM EDT Temperature 36.5 C (97.7 F) 11/12/2024 1:04 PM EDT Respiratory Rate 18 10/02/2024 8:37 AM EDT Oxygen Saturation 96% 02/13/2025 11:38 AM EDT Inhaled Oxygen Concentration - - Weight 112 kg (246 lb) 02/13/2025 11:38 AM EDT Height 165.1 cm (5' 5 ) 02/13/2025 11:38 AM EDT Body Mass Index 40.94 02/13/2025 11:38 AM EDT Plan of Treatment Health Maintenance Due Date Last Done Comments [facility]-Bone Density Scan 1959 [facility]-Medicare Annual Wellness (AWV) 1960 [facility]-Infant/Child/Adol SDOH Screenings 1960 Diabetes: Dental Exam 1969 [facility]-DTaP,Tdap,and Td Vaccines (1 - Tdap) 1978 [facility]-Zoster Vaccines (1 of 2) 1978 CT Colonography 02/02/2004 Colonoscopy 02/02/2004 FIT-DNA 02/02/2004 FIT 02/02/2004 FOBT 02/02/2004 Sigmoidoscopy 02/02/2004 [facility]-Colorectal Cancer Screening 02/02/2004 [id number] Vaccine ( - 2024- season) 2025 04/18/2023, 06/03/2021, 11/13/2020, Additional history exists [facility]-Influenza Vaccine (#1) 03/03/202504/18, 04/22/2021, 06/23/2020, Additional history exists [facility]-Diabetes: Hemoglobin A1C 03/25/2025 09/25/2024, 07/25/2023 [facility]- SDOH Screenings 03/29/2025 [facility]-Adult SDOH Screenings 03/29/2025 09/26/2024 [facility]-Pneumococcal Vaccine: 50+ Years (2 of 2 - PCV) 04/17/2025 04/17/2024 [facility]-Depression Screening 02/13/2026 02/13/2025 [facility]-RSV Vaccine: 60+ Years or Completed 04/18/2023 [facility]-Breast Cancer Screening Discontinued 06/03, 06/14/2022, 06/09/2021, Additional history exists [facility]-Hepatitis C Screening Completed 09/25/2024 [facility]-Obesity Intervention Completed 025, 12/03/2024, 11/12/2024, Additional history exists HPV Vaccines Aged Out No longer eligi ble based on patient's age to complete this topic [facility]-HIB Vaccines Aged Out No longer e ligible based on patient's age to complete this topic [facility]-Hepatitis A Vaccines Aged Out No longer eligible based on patient's age to complete this topic [facility]-IPV Vaccines Aged Out No longer e ligible based on patient's age to complete this topic [facility]-Rotavirus Vaccines Aged Out No lo nger eligible based on patient's age to complete this topic Procedures Procedure Name Priority Date/Time Associated Diagnosis Comments HEPATITIS C ANTIBODY - ED W/REFLEX TO HCV QUANT PCR STAT 09/25/2024 6:45 PM EDT HEMOGLOBIN A1C Add-On 09/25/2024 6:45 PM EDT MAMMOGRAPHY BREAST SCREENING TOMOSYNTHESIS BILATERAL Routine 06/27/2023 10:18 AM EST Encounter for screening mammogram for malignant neoplasm of breast from Last 3 Months or Most Recently Relevant to Health Maintenance Results * Hepatitis C Antibody - ED (09/25/2024 6:45 PM EDT) Hepatitis C Antibody Negative Negative 09/25/2024 7:51 PM EDT [facility] Blood Venous blood specimen / Unknown Venipuncture / Unknown 09/25/2024 6:45 PM EDT 09/25/2024 7:09 PM EDT us Jill CARNES LAB BLOOD ORDERABLES Final R esult [facility] [address] [place] [address] * (ABNORMAL) Hemoglobin A1c (09/25/2024 6:45 PM EDT) Hemoglobin A1c 5.9(H) <5.7 % 09/26/2024 12:31 AM EDT [facility] Blood Venous blood specimen / Unknown Venipuncture / Unknown 09/25/2024 6:45 PM EDT 09/25/2024 6:51 PM EDT Narrative [facility] - 09/26/2024 12:31 AM EDT HA1C Interpretive Data: Diagnosis of Diabetes: Diabetic > or = 6.5% Pre-diabetic 5.7 to 6.4% Non-diabetic < or = 5.6% Glycemic Targets for Type I and Type II Diabetics: Non- Adults <7.0% Adults <6.0% Children and Adolescents <7.5% Source: [place] [employer]. Standards of medical care in diabetes,2017. Diabetes Care.2017:40 (suppl 1):S1-S135. HbA1c assay performed by an ion-exchange chromatography method that is certified traceable to the DCCT. us Mitesh Azul MD LAB BLOOD ORDERABLES Final Result [facility] [address] [place] [address] * Mammography Breast Screening Tomosynthesis Bilateral (06/27/2023 10:18 AM EST) Anatomical Region Laterality Modality Breast Bilateral Mammography Impressions 06/27/2023 11:00 AM EST No mammographic evidence of malignancy. BI-RADS CATEGORY: Overall: 2 - Benign RECOMMENDATION: - Routine Screening Mammogram in 1 Year. Patient Lifetime Risk Score of Breast Malignancy: A risk score has not been calculated for this patient. This risk assessment is calculated using the Lacie Risk Assessment model which may underestimate the lifetime risk of breast malignancy. COMMUNICATION: Computer-aided detection (CAD) and tomosynthesis were utilized by the radiologist in the interpretation of this examination. The results and recommendations will be sent to the patient in a printed lay language version of the imaging report. Narrative 06/27/2023 11:00 AM EST EXAM: Mammography Breast Screening with Tomosynthesis REASON FOR EXAM: Screening Mammogram HISTORY: Patient is 63 y.o. Hormone history includes hormone replacement therapy. Surgical and procedural history include right breast biopsy, 03/2014 (core needle biopsy ); left breast biopsy, 03/2014; left lumpectomy, 05/2014 (Lumpectomy of left breast from [facility]); left breast surgery, 05/2014 (Lumpectomy of left breast from [facility]); and left breast lumpectomy, 05/2014 (Lumpectomy of left breast from [facility]). Medical history includes breast cancer and radiation therapy. COMPARISON STUDIES: Compared to: 06/06/2019 Mammography Breast Diagnostic Tomosynthesis Bilateral at [facility] 06/08/2020 Mammography Breast Diagnostic Tomosynthesis Bilateral at [facility] 06/09/2021 Mammography Breast Screening Tomosynthesis Bilateral at [facility] 06/14/2022 Mammography Breast Screening Tomosynthesis Bilateral at [facility] BREAST COMPOSITION: The breasts have scattered areas of fibroglandular density. FINDINGS: There are post-lumpectomy changes present in the left breast. There is no evidence of suspicious masses, calcifications, or other abnormal findings. Nasra Landry APRN IMG BI PROCEDURES Final R esult from Last 3 Months or Most Recently Relevant to Health Maintenance [place] [address] MEDICARE [facility] Advance Directives * Full Code (Latest Code Status on File) Date Activated Date Inactivated Comments 09/25/2024 9:01 PM 10/02/2024 4:16 PM Care Teams Notcher Relationship Specialty Start Date End Date Ricky Jones MD [address] [facility] [address] [place] [id number] PCP - General 11/13/20
== END 2025-04-21 23:59 | disposition home or self-care (01) ==
LOC: RAD 16:03
PROVIDERS: PCP Family Medicine; Visit Provider Nurse Practitioner
DX: M19.072 Primary osteoarthritis, left ankle and foot (principal); M20.12 Hallux valgus (acquired), left foot; M79.89 Other specified soft tissue disorders; M79.2 Neuralgia and neuritis, unspecified
CPT/HCPCS: 73630

== ENCOUNTER 2025-04-25 09:59 | Outpatient (CLI) | payer MEDICARE, OTHER, SELFPAY ==
--- OUTSIDE RECORDS SUMMARY | 2024-06-11 11:30 | XMS_ITS ---
[facility] Address [address] [place] [id number] Care Team Providers Care Librarian Helper Name Role Phone Robert Ricky Primary Care Provider Nat Nieves Unavailable [phone] Allergies No Known Allergies REASON FOR VISIT [facility] HOME VISIT Medications Medication SIG (Take, Route, Frequency, Duration) Notes Start Date End Date Status Biotin 5 MG 1 tab(s) orally once a day Active Calcium-Vitamin D-Minerals 600-800 MG-UNIT 1 tab(s) orally 2 times a day Active Carbidopa-Levodopa ER 25-100 MG 1 tablet as needed Orally Four times a Week Active NovoLOG 100 UNIT/ML 30 units am, 20 in the afternoon and 30 in the pm subcutaneously 3 times a day Active metFORMIN HCl 500 MG 1 tab(s) orally 2 times a day Active Atorvastatin Calcium 20 MG 1 tab(s) orally once a day (at bedtime) Active Lantus 100 UNIT/ML 50 units subcutaneously every 12 hours Active DULoxetine HCl 30 MG 1 cap(s) orally 2 times a day Active FLUoxetine HCl 40 MG 1 cap(s) orally once a day Active Lisinopril 20 mg 1 tablet Orally Once a day Active Metoprolol Succinate ER 50 MG 1 tablet Orally Once a day Active DULoxetine HCl 60 MG 1 cap(s) orally once a day (60 mg and 30 mg) Active FreeStyle Jonathan 3 S[place]tz - as directed 11/14/2023 Active Fenofibric Acid 135 MG 1 cap(s) orally once a day Active BD Insulin Syringe U/F 30G X 1/2 1 ML USE 1 SYRINGE UNDER THE SKIN TWICE A DAY Active Meloxicam 7.5 MG 1 tab(s) orally once a day; Duration: 90 days Active Rybelsus 7 MG 1 tablet at least 30 minutes before first food, beverage or other oral medicine of the day Orally Once a day; Duration: 90 days Active Vitamin C 100 MG 1 tab(s) chewed once a day; Duration: 30 day(s) Active Super B-Complex - 1 tab(s) orally once a day Active BD Insulin Syringe U/F 1 SET SUBQ TWICE A DAY; Duration: 90 DAYS *Please review and pick correct strength-formulati on from [employer] options. If intended option is not shown, discontinue and re-order from Quick Search* 02/09/2019 Active Glucosamine & Fish Oil 400-127-79-40 MG 3 cap(s) orally once a day Active Gabapentin 300 MG 1 cap(s) orally 3 times a day; Duration: 30 day(s) Active Rexulti 1 MG 1 tablet Orally Once a day; Duration: 30 day(s) Active Slow Fe 45 MG 1 tablet Orally Thre e times a Week; Duration: 30 day(s) Active Aspirin Adult Low Dose 81 MG 1 tab(s) orally once a day Active CoQ-10 100 MG 1 cap(s) orally once a day; Duration: 30 day(s) Active Vital Signs Weight 235.8 lbs 06/11/2024 Blood pressure systolic 126 mm Hg 06/11/20 24 Blood pressure diastolic 76 mm Hg 024 Heart Rate 74 /min 06/11/2024 Respiratory Rate 20 /min 06/11/2024 Encounters Encounter Location Date Provider Diagnosis [address] [place], [place] [id number] 06/11/2024 Nat Nieves Cellulitis of right leg L03.115 ; Other specified diabetes mellitus with foot ulcer E13.621 ; Non-pressure chronic ulcer of other part of unspecified foot with unspecified severity L97.509 ; Gas gangrene A48.0 ; Parkinsonism, unspecified Parkinsonism type G20.C ; Other specified diabetes mellitus with other specified complication, unspecified whether chcf insulin use E13.69 ; Venous insufficiency (chronic) (peripheral) I87.2 ; Localized edema R60.0 ; Osteomyelitis of right foot, unspecified type M86.9 ; Onychodystrophy L60.3 ; Hypokalemia E87.6 ; Essential hypertension I10 ; Hyperlipidemia, unspecified hyperlipidemia type E78.5 ; Depressive disorder F32.9 and Generalized anxiety disorder F41.1 Assessments Encounter Date Diagnosis (ICD Code) Assessment Notes Treatment Notes Treatment Clinical Notes Section Notes 06/11/2024 Cellulitis of right leg (ICD-10 - L03.115) 06/11/2024 Other specified diabetes mellitus with foot ulcer (ICD-10 - E13.621) 06/11/2024 Non-pressure chronic ulcer of other part of unspecified foot with unspecified severity (ICD-10 - L97.509) 06/11/2024 Gas gangrene (ICD-10 - A48.0) 06/11/2024 Parkinsonism, unspecified Parkinsonism type (ICD-10 - G20.C) 06/11/2024 Other specified diabetes mellitus with other specified complication, unspecified whether 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 (ICD-10 - E13.69) 06/11/2024 Venous insufficiency (chronic) (peripheral) (ICD-10 - I87.2) 06/11/2024 Localized edema (ICD-10 - R60.0) 06/11/2024 Osteomyelitis of right foot, unspecified type (ICD-10 - M86.9) pt continues to see podiatry weekly and has weekly labs as ordered by them 06/11/2024 Onychodystrophy (ICD-10 - L60.3) 06/11/2024 Hypokalemia (ICD-10 - E87.6) 06/11/2024 Essential hypertension (ICD-10 - I10) 06/11/2024 Hyperlipidemia, unspecified hyperlipidemia type (ICD-10 - E78.5) 06/11/2024 Depressive disorder (ICD-10 - F32.9) pt is much more alert today 06/11/2024 Generalized anxiety disorder (ICD-10 - F41.1) Plan Of Treatment Medication Medication Name Sig Start Date Stop Date Notes Krill Oil 1000MG 2 TABS QD Biotin 5 MG 1 tab(s) orally once a day Calcium-Vitamin D-Minerals 600-800 MG-UNIT 1 tab(s) orally 2 times a day Carbidopa-Levodopa ER 25-100 MG 1 tablet as needed Orally Four times a Week Cinnamon 500 MG 2 cap(s) orally 2 times a day NovoLOG 100 UNIT/ML 30 units am, 20 in t he afternoon and 30 in the pm subcutaneously 3 times a day metFORMIN HCl 500 MG 1 tab(s) orally 2 times a day Apple Cider Vinegar Plus - as directed Orally Atorvastatin Calcium 20 MG 1 tab(s) oral ly once a day (at bedtime) Lantus 100 UNIT/ML 50 units subcutaneou sly every 12 hours DULoxetine HCl 30 MG 1 cap(s) orally 2 times a day FLUoxetine HCl 40 MG 1 cap(s) orally once a day Lisinopril 20 mg 1 tablet Orally Once a day Metoprolol Succinate ER 50 MG 1 tablet Orally Once a day DULoxetine HCl 60 MG 1 cap(s) orally onc e a day (60 mg and 30 mg) Treatment Notes Assessment Notes Osteomyelitis of right foot, unspecified type pt continues to see podiatry weekly and has weekly labs as ordered by them Depressive disorder pt is much more aler t today Next Appt Details Follow Up: 4 Weeks,and prn, Reason: Provider Name:Ricky Chaudhary , 06/23/2025 11:00:00 AM, [address], [address], [place], [place], [id number], Progress Notes * FELIX BRIDGESOB:1960 ( 65 yo F)Acc No.[id number]:06/11/2024 Progress Notes Patient: LILY QUIROS Provider: GAURANG Oliveira :1960 A ge:64 Y S ex:Female Date:06/11/2024 Address:[address] [place] [address] [place], [id number] Pcp:Ricky Jones Subjective: * Chief Complaints: * [facility] . [facility] * HPI: H PI: For routine [facility] visit; chart reviewed and patient examined; see ROS. * ROS: G ASTROENTEROLOGY: Positive for s tates she has no appetite. n o N ausea. n o V omiting. n o D iarrhea. n o C onstipation. M USCULOSKELETAL: Joint pain y es, r ight foot; she did see Dr. Smith 06/10/2024; see note. P SYCHOLOGY: Positive for p kristi feels that her sleepiness is better sine med decreased; nursing also noted that she is not as lethargic. D epression y es. ? tanja berry continues to see Dr. Smith weekly ; she was seen 06/10/2024 and had additional debridment of the wound on the right foot/ankle; she continues with weekly labs. * Medical History: T ype 2 Diabetes, [facility], Hyperlipidemia, Hypertension, Hypertriglyceridemia, LT Leg Venous Stasis, Depression, Declared Disabled, 2011, LT Foot Extensive Celluitis, [facility] 2013, LT Breast Cancer, s/p Lumpectomy- Radiation, 2013, DKA and multi Drug Resisitant E.Coli UTI, 08/2014, LT Carpal Tunnel Syndrome, s/p Surgery 2015, Right foot ucer with gas gangrene and osteomyelitis, Obesity, Parkinson Disease. * Surgical History: L T Leg Skin Grafts , Carpal Tunnel Release 07/2015, Cholecystectomy 08/16/2016, Foot surgery -right foot I&D with wide excision/debridement of non viable oft tissue and bone; right partial 4-5th ray amputation/resection/ Dr. Smith at [facility] 05/15/2024. * Hospitalization/Major Diagno stic Procedure: C ongestion- [facility] ER 07/2010, Dehydration, UTI, DKA- [facility] 08/2014, Gallbladder Attack - [facility] 08/16-, MKA- [facility] 10/09-, Cellulitis- [facility] 01/07-06/2019, [facility] with T2DM, diabetic foor ulcer; cellulitis RLE; gangrene RLE; osteomyelitis; venous insuffciency; parkinson disease; falls at home ; UTI; morbid obesity; onychodystrophy; nail dystrophy; hypokalemia 05/13-05/20/2024. * Family History: F ather: alive, Gout arthritis. M other: alive, Quad bypass type 2 diabetes. 2 sister(s) - healthy. . * Social History: C URRENT TOBACCO USE S moking Status: Patient does NOT smoke. C affeine: yes, frequency:. Exercise: no. Home smoke detector use: yes. Marital Status: . Past smoking status: no. Recreational drug use: no. Alcohol: no. * Medications: T aking Apple Cider Vinegar Plus - Tablet as directed Orally , Taking Slow Fe 45 MG Tablet Extended Release 1 tablet Orally Three times a Week , Taking Rexulti 1 MG Tablet 1 tablet Orally Once a day , Taking metFORMIN HCl 500 MG Tablet 1 tab(s) orally 2 times a day , Taking NovoLOG 100 UNIT/ML Solution 30 units am, 20 in the afternoon and 30 in the pm subcutaneously 3 times a day , Taking Lantus 100 UNIT/ML Solution 50 units subcutaneously every 12 hours , Taking Aspirin Adult Low Dose 81 MG Tablet Delayed Release 1 tab(s) orally once a day , Taking Biotin 5 MG Tablet Disintegrating 1 tab(s) orally once a day , Taking Calcium-Vitamin D-Minerals 600-800 MG-UNIT Tablet Chewable 1 tab(s) orally 2 times a day , Taking CoQ-10 100 MG Capsule 1 cap(s) orally once a day , Taking Gabapentin 300 MG Capsule 1 cap(s) orally 3 times a day , Taking Glucosamine & Fish Oil 399-445-33-40 MG Capsule 3 cap(s) orally once a day , Taking Krill Oil 1000MG 2 TABS QD , Taking Super B-Complex - Tablet 1 tab(s) orally once a day , Taking Vitamin C 100 MG Tablet Chewable 1 tab(s) chewed once a day , Taking Cinnamon 500 MG Capsule 2 cap(s) orally 2 times a day , Taking BD Insulin Syringe U/F 1 SET SUBQ TWICE A DAY , Notes to Pharmacist: *Please review and pick correct strength-formulation from [facility] options. If intended option is not shown, discontinue and re-order from Quick Search*, Taking BD Insulin Syringe U/F 30G X 1/2 1 ML Miscellaneous USE 1 SYRINGE UNDER THE SKIN TWICE A DAY , Taking Fenofibric Acid 135 MG Capsule Delayed Release 1 cap(s) orally once a day , Taking FreeStyle Jonathan 3 [place]tz - Device as directed , Taking Rybelsus 7 MG Tablet 1 tablet at least 30 minutes before first food, beverage or other oral medicine of the day Orally Once a day , Taking Meloxicam 7.5 MG Tablet 1 tab(s) orally once a day , Taking FLUoxetine HCl 40 MG Capsule 1 cap(s) orally once a day , Taking DULoxetine HCl 30 MG Capsule Delayed Release Particles 1 cap(s) orally 2 times a day , Taking DULoxetine HCl 60 MG Capsule Delayed Release Particles 1 cap(s) orally once a day (60 mg and 30 mg) , Taking Metoprolol Succinate ER 50 MG Tablet Extended Release 24 Hour 1 tablet Orally Once a day , Taking Lisinopril 20 mg Tablet 1 tablet Orally Once a day , Taking Atorvastatin Calcium 20 MG Tablet 1 tab(s) orally once a day (at bedtime) , Taking Carbidopa-Levodopa ER 25-100 MG Tablet Extended Release 1 tablet as needed Orally Four times a Week * Allergies: N .K.D.A. Objective: * Vitals: W t:235.8, Temp:98.1, BP:126/76, HR:74, O2 Sat:96%, Nurse:reviewd/recorded by payam, RR:20. * Examination: G eneral Examination: General Appearance: NAD, appears healthy, alert, pleasant; sitting up in beedside chair with the right leg elevated; Appears comfortable. H eart: RRR. L ungs: CTAB A&P. N eurologic Exam: alert and oriented. E xtremities: right foot is in bootl wh=. Assessment: * Assessment: 1. E ssential hypertension - I10 (Primary) 2 . C ellulitis of right leg - L03.115 3 . O ther specified diabetes mellitus with foot ulcer - E13.621 ? 4 . N on-pressure chronic ulcer of other part of unspecified foot with unspecified severity - L97.509 5 . G as gangrene - A48.0 6 . P arkinsonism, unspecified Parkinsonism type - G20.C 7 . 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 V enous insufficiency (chronic) (peripheral) - I87.2 9 . L ocalized edema - R60.0 1 0. O steomyelitis of right foot, unspecified type - M86.9 ?11. O nychodystrophy - L60.3 1 2. H ypokalemia - E87.6 1 3. H yperlipidemia, unspecified hyperlipidemia type - E78.5 1 4. D epressive disorder - F32.9 1 5. G eneralized anxiety disorder - F41.1 Plan: * Treatment: 2. P arkinsonism, unspecified Parkinsonism type Continue Carbidopa-Levodopa ER Tablet Extended Release, 25-100 MG, 1 tablet as needed, Orally, Four times a Week. 3. O ther specified diabetes mellitus with other specified complication, unspecified whether chcf insulin use Continue metFORMIN HCl Tablet, 500 MG, 1 tab(s), orally, 2 times a day; C ontinue NovoLOG Solution, 100 UNIT/ML, 30 units am, 20 in the afternoon and 30 in the pm, subcutaneously, 3 times a day; Continue Lantus Solution, 100 UNIT/ML, 50 units, subcutaneously, every 12 hours. 4. O steomyelitis of right foot, unspecified type Continue Calcium-Vitamin D-Minerals Tablet Chewable, 600-800 MG-UNIT, 1 tab(s), orally, 2 times a day. Notes: pt continues to see podiatry weekly and has weekly labs as ordered by them 5. H yperlipidemia, unspecified hyperlipidemia type Continue Atorvastatin Calcium Tablet, 20 MG, 1 tab(s), orally, once a day (at bedtime); S top Apple Cider Vinegar Plus Tablet, -, as directed, Orally. 6. D epressive disorder Continue FLUoxetine HCl Capsule, 40 MG, 1 cap(s), orally, once a day; C ontinue DULoxetine HCl Capsule Delayed Release Particles, 30 MG, 1 cap(s), orally, 2 times a day; C ontinue DULoxetine HCl Capsule Delayed Release Particles, 60 MG, 1 cap(s), orally, once a day (60 mg and 30 mg). ? Notes: pt is much more alert today 7. O thers Continue Biotin Tablet Disintegrating, 5 MG, 1 tab(s), orally, once a day; S top Krill Oil, 1000MG, 2 TABS QD; S top Cinnamon Capsule, 500 MG, 2 cap(s), orally, 2 times a day. * Follow Up: 4 Weeks,and prn * Images: Billing Information: * Visit Code: 87651 subs. level 4. * Procedure Codes: * Electronic signature of Cata Nieves APRN on 04/25/2025 at 10:03 AM EDT Sign off status: Pending * Provider: GAURANG Oliveira Date: 08/12/2023 Generated for Virgilio pineda/Saleem/eTransmitting on: 1 10:03 AM EDT History and Physical Notes * HPI (History of Present Illness) Category Sub-Category Detail Notes Category Not es HPI For routine [facility] visit; chart reviewed and patient examined; see ROS Examination Category Sub-Category Detail Notes Category Not es General Examination Heart: RRR Lungs: CTAB A&P Extremities: right foot is in bustamante tl wh= General Appearance: NAD, appears healthy , alert, pleasant; sitting up in beedside chair with the right leg elevated; Appears comfortable Neurologic Exam: alert and oriented
--- OUTSIDE RECORDS SUMMARY | 2024-08-08 08:00 | XMS_ITS ---
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 Dies Name Role Phone Robert Ricky Primary Care Provider Allergies No Known Allergies REASON FOR VISIT BP Elevated Medications Medication SIG (Take, Route, Frequency, Duration) Notes Start Date End Date Status Carbidopa-Levodopa ER 25-100 MG 1 tablet as needed Orally Four times a Week Active Calcium-Vitamin D-Minerals 600-800 MG-UNIT 1 tab(s) orally 2 times a day Active NovoLOG 100 UNIT/ML 30 units am, 20 in t he afternoon and 30 in the pm subcutaneously 3 times a day Active Lantus 100 UNIT/ML 50 units subcutaneou sly every 12 hours Active Atorvastatin Calcium 20 MG 1 tab(s) orally once a day (at bedtime) Active metFORMIN HCl 500 MG 1 tab(s) orally 2 t imes a day Active DULoxetine HCl 60 MG 1 cap(s) orally onc e a day (60 mg and 30 mg) Active FLUoxetine HCl 40 MG 1 cap(s) orally once a day Active DULoxetine HCl 30 MG 1 cap(s) orally 2 t imes a day Active Rybelsus 7 MG 1 tablet at least 30 minutes before first food, beverage or other oral medicine of the day Orally Once a day; Duration: 90 days Active Meloxicam 7.5 MG 1 tab(s) orally once a day; Duration: 90 days Active FrancescoStyle Jonathan 3 [place] - as directed 11/14/2023 Active Metoprolol Succinate ER 50 MG 2 tablets Orally Once a day Active Lisinopril 20 mg 2 tablets Orally Once a day Active Aspirin Adult Low Dose 81 MG 1 tab(s) orally once a day A ctive Gabapentin 300 MG 1 cap(s) orally 3 ti mes a day; Duration: 30 day(s) Active Caplyta 42 MG 1 capsule Orally Onc e a day; Duration: 30 day(s) Active Slow Fe 45 MG 1 tablet Orally Thre e times a Week; Duration: 30 day(s) Acti ve Vitamin B12 1000 MCG 1 tablet Orally Onc e a day; Duration: 30 day(s) Active Xarelto 2.5 MG 1 tablet with food O rally Twice a day; Duration: 30 day(s) Active Vital Signs Weight 233 lbs 08/08/2024 Blood pressure systolic 160 mm Hg 08/08/19 25 Blood pressure diastolic 68 mm Hg 025 Heart Rate 81 /min 08/08/2024 Height 66 in 08/08/2024 BMI 37.60 kg/m2 08/08/2024 Encounters Encounter Location Date Provider Diagnosis [place] [address] [facility] [address] [facility] [address] [place] [id number] 08/08/2024 Ricky Jones Essential hypertensi on I10 Assessments Encounter Date Diagnosis (ICD Code) Assessment Notes Treatment Notes Treatment Clinical Notes Section Notes 08/08/2024 Essential hypertension (ICD-10 - I10) Plan Of Treatment Medication Medication Name Sig Start Date Stop Date Notes Metoprolol Succinate ER 50 MG 2 tablets Orally Once a day Lisinopril 20 mg 2 tablets Orally Once a day Next Appt Details Follow Up: 2 Weeks, Reason: Provider Name:Ricky Chaudhary , 06/23/2025 11:00:00 AM, [address] [facility] [address] [facility], [address], [place], [phone], Progress Notes * GISELL BRIDGESDEYVIOB:1960 ( 65 yo F)Acc No.[id number]:08/08/2024 Progress Notes Patient: LILY QUIROS Provider: Rita Jones M.D. :1960 A ge:64 Y S ex:Female Date:08/08/2024 Address:[address] [id number] Subjective: * Chief Complaints: * 1 . BP Elevated. * HPI: C ardiology: 64 year old female presents with c/o Blood Pressure Elevated?Pt states that she was advised to see PCP for elevated bp for the last 3 days. * ROS: D ERMATOLOGY: no R bert. n o H gonzález. G ASTROENTEROLOGY: no N ausea. n o V omiting. U ROLOGY: no D ifficulty urinating. n o B lood in urine. * Medical History: T ype 2 Diabetes, [place] [facility], Hyperlipidemia, Hypertension, Hypertriglyceridemia, LT Leg Venous Stasis, Depression, Declared Disabled, 2011, LT Foot Extensive Celluitis, [facility] 2013, LT Breast Cancer, s/p Lumpectomy- Radiation, [...] partial 4-5th ray amputation/resection/ Dr. Smith at [facility] 05/15/2024. * Hospitalization/Major Diagno stic Procedure: C ongestion- [facility] ER 07/2010, Dehydration, UTI, DKA- [facility] 08/2014, Gallbladder Attack - [facility] 08/16-, MKA- [facility] 10/09-, Cellulitis- [facility] 01/07-06/2019, [facility] with T2DM, diabetic foor ulcer; cellulitis RLE; [...] no. Alcohol: no. * Medications: T aking Xarelto 2.5 MG Tablet 1 tablet with food Orally Twice a day , Taking Vitamin B12 1000 MCG Tablet Extended Release 1 tablet Orally Once a day , Taking Caplyta 42 MG Capsule 1 capsule Orally Once a day , Taking Slow Fe 45 MG Tablet Extended Release 1 tablet Orally Three times a Week , Taking Aspirin Adult Low Dose 81 MG Tablet Delayed Release 1 tab(s) orally once a day , Taking Gabapentin 300 MG Capsule 1 cap(s) orally 3 times a day , Taking FreeStyle Jonathan 3 [place] - Device as directed , Taking Rybelsus [...] (60 mg and 30 mg) , Taking Lisinopril 20 mg Tablet 1 tablet Orally Once a day , Taking Atorvastatin Calcium 20 MG Tablet 1 tab(s) orally once a day (at bedtime) , Taking metFORMIN HCl 500 MG Tablet 1 tab(s) orally 2 times a day , Taking NovoLOG 100 UNIT/ML Solution 30 units am, 20 in the afternoon and 30 in the pm subcutaneously 3 times a day , Taking Lantus 100 UNIT/ML Solution 50 units subcutaneously every 12 hours , Taking Calcium-Vitamin D-Minerals 600-800 MG- UNIT Tablet Chewable 1 tab(s) orally 2 times a day , Taking Carbidopa-Levodopa ER 25- 100 MG Tablet Extended Release 1 tablet as needed Orally Four times a Week , Taking Metoprolol Succinate ER 50 MG Tablet Extended Release 24 Hour 1 tablet Orally Once a day , Discontinued Rexulti 1 MG Tablet 1 tablet Orally Once a day , Discontinued CoQ-10 100 MG Capsule 1 cap(s) orally once a day , Discontinued Glucosamine & Fish Oil 166-988-17-40 MG Capsule 3 cap(s) orally once a day , Discontinued Super B-Complex - Tablet 1 tab(s) orally once a day , Discontinued Vitamin C 100 MG Tablet Chewable 1 tab(s) chewed once a day , Discontinued BD Insulin Syringe U/F 1 SET SUBQ TWICE A DAY , Notes to Pharmacist: *Please review and pick correct strength-formulation from Fosburyspan options. If intended option is not shown, discontinue and re-order from Quick Search*, Discontinued BD Insulin Syringe U/F 30G X 1/2 1 ML Miscellaneous USE 1 SYRINGE UNDER THE SKIN TWICE A DAY , Discontinued Fenofibric Acid 135 MG Capsule Delayed Release 1 cap(s) orally once a day , Discontinued Biotin 5 MG Tablet Disintegrating 1 tab(s) orally once a day , Medication List reviewed and reconciled with the patient * Allergies: N .K.D.A. Objective: * Vitals: W t:233, Temp:97.9, BP:160/68, HR:81, O2 Sat:96% on RA, Nurse:rudy, Ht: 66, BMI:37.60. * Examination: C ardiology: General Appearance: p leasant, NAD, uses a walker to assist with ambulation. H eart sounds: R RR, normal S1, S2. L ungs: c lear, no rales or wheezes. Assessment: * Assessment: 1. E ssential hypertension - I10 (Primary) Plan: * Treatment: * Procedure Codes: G 2211 Complex e/m visit add on, G8753 MOST RECENT SYSTOLIC BP >= 140MM HG, G8754 MOST RECENT DIASTOLIC BP < 90MM HG * Follow Up: 2 Weeks * Images: Billing Information: * Visit Code: 79395 Office Visit, Est Pt., Level 3. * Procedure Codes: G2211 Complex e/m visit add on. G8753 MOST RECENT SYSTOLIC BP >= 140MM HG. G8754 MOST RECENT DIASTOLIC BP < 90MM HG. * Electronic signature of Leanne Jones MD on 04/25/2025 at 10:04 AM EDT Sign off status: Pending * Provider: Rita Jones M.D. Date: 0 08/08/2024 Generated for Virgilio pineda/Saleem/Cedric on: 10:04 AM EDT History and Physical Notes * HPI (History of Present Illness) Category Sub-Category Detail Notes Category Not es Cardiology Blood Pressure Elevated Pt state s that she was advised to see PCP for elevated bp for the last 3 days Examination Category Sub-Category Detail Notes Category Not es Cardiology Lungs: clear, no rales or wheezes Heart sounds: RRR, normal S1, S2 General Appearance: pleasant, NAD, uses a walker to assist with ambulation
--- OUTSIDE RECORDS SUMMARY | 2024-08-26 10:30 | XMS_ITS ---
[facility] Address [address] [place] [phone] Care Team Providers Care Reflow Operator Name Role Phone Robert Ricky Primary Care Provider Allergies No Known Allergies REASON FOR VISIT 2 week F/U Medications Medication SIG (Take, Route, Frequency, Duration) Notes Start Date End Date Status Aspirin Adult Low Dose 81 MG 1 tab(s) orally once a day A ctive Xarelto 2.5 MG 1 tablet with food O rally Twice a day; Duration: 30 day(s) Active Vitamin B12 1000 MCG 1 tablet Orally Onc e a day; Duration: 30 day(s) Active Caplyta 42 MG 1 capsule Orally Onc e a day; Duration: 30 day(s) Active Slow Fe 45 MG 1 tablet Orally Thre e times a Week; Duration: 30 day(s) Acti ve Lantus 100 UNIT/ML 50 units subcutaneou sly every 12 hours Active Calcium-Vitamin D-Minerals 600-800 MG-UNIT 1 tab(s) orally 2 times a day Active Carbidopa-Levodopa ER 25-100 MG 1 tablet as needed Orally Four times a Week Active Lisinopril 20 mg 2 tablets Orally Once a day Active Metoprolol Succinate ER 50 MG 3 tablets Orally Once a day Active DULoxetine HCl 60 MG 1 cap(s) orally onc e a day (60 mg and 30 mg) Active Atorvastatin Calcium 20 MG 1 tab(s) orally once a day (at bedtime) Active metFORMIN HCl 500 MG 1 tab(s) orally 2 t imes a day Active NovoLOG 100 UNIT/ML 30 units am, 20 in t he afternoon and 30 in the pm subcutaneously 3 times a day Active DULoxetine HCl 30 MG 1 cap(s) orally 2 t imes a day Active Gabapentin 300 MG 1 cap(s) orally 3 ti mes a day; Duration: 30 day(s) Active FreeStyle Jonathan 3 [place] - as directed 11/14/2023 Active Rybelsus 7 MG 1 tablet at least 30 minutes before first food, beverage or other oral medicine of the day Orally Once a day; Duration: 90 days Active FLUoxetine HCl 40 MG 1 cap(s) orally once a day Active Meloxicam 7.5 MG 1 tab(s) orally once a day; Duration: 90 days Active Vital Signs Weight 234 lbs 08/26/2024 Blood pressure systolic 144 mm Hg 08/26/19 25 Blood pressure diastolic 78 mm Hg 025 Heart Rate 82 /min 08/26/2024 Height 66 in 08/26/2024 BMI 37.76 kg/m2 08/26/2024 Encounters Encounter Location Date Provider Diagnosis [facility] [address] [facility] [address] [facility] [address] [place] [id number] 08/26/2024 Ricky Jones Essential hypertensi on I10 Assessments Encounter Date Diagnosis (ICD Code) Assessment Notes Treatment Notes Treatment Clinical Notes Section Notes 08/26/2024 Essential hypertension (ICD-10 - I10) Plan Of Treatment Medication Medication Name Sig Start Date Stop Date Notes Lisinopril 20 mg 2 tablets Orally Once a day Metoprolol Succinate ER 50 MG 3 tablets Orally Once a day Next Appt Details Follow Up: as scheduled,and prn, Reason: Provider Name:Ricky Chaudhary ry, 06/23/2025 11:00:00 AM, [address] [facility] [address] [facility], [address], [place], [place], [phone], Progress Notes * BRIDGESGISELLDEYVIOB:1960 ( 65 yo F)Acc No.[id number]:08/26/2024 Progress Notes Patient: LILY QUIROS Provider: Rita Jones M.D. :1960 A ge:64 Y S ex:Female Date:08/26/2024 Address:[address] [place], [id number] Subjective: * Chief Complaints: * 1 . 2 week F/U. * HPI: C ardiology: 64 year old female presents with c/o Blood Pressure Elevated?Pt here for 2 week f/u. Pt had Lisinopril increased to 20mg and Metoprolol increased to 50mg on 08/08/2024. * ROS: D ERMATOLOGY: no R bert. n o H gonzález. G ASTROENTEROLOGY: no N ausea. n o V omiting. U ROLOGY: no D ifficulty urinating. n o B lood in urine. * Medical History: T ype 2 Diabetes, [facility] [facility], Hyperlipidemia, Hypertension, Hypertriglyceridemia, LT Leg Venous Stasis, Depression, Declared Disabled, 2011, LT Foot Extensive Celluitis, [facility] [employer] 2013, LT Breast Cancer, s/p Lumpectomy- Radiation, [...] partial 4-5th ray amputation/resection/ Dr. Smith at [facility] 05/15/2024. * Hospitalization/Major Diagno stic Procedure: C ongestion- [facility] ER 07/2010, Dehydration, UTI, DKA- [facility] 08/2014, Gallbladder Attack - [facility] 08/16-, MKA- [facility] 10/09-, Cellulitis- [facility] 01/07-06/2019, [facility] with T2DM, diabetic foor ulcer; cellulitis [...] a day , Taking FreeStyle Jonathan 3 [place] - Device as directed , Taking Rybelsus [...] (60 mg and 30 mg) , Taking Atorvastatin Calcium 20 MG Tablet [...] subcutaneously every 12 hours , Taking Calcium-Vitamin D- Minerals 600-800 MG-UNIT Tablet Chewable 1 tab(s) orally 2 times a day , Taking Carbidopa-Levodopa ER 25-100 MG Tablet Extended Release 1 tablet as needed Orally Four times a Week , Taking Lisinopril 20 mg Tablet 2 tablets Orally Once a day , Taking Metoprolol Succinate ER 50 MG Tablet Extended Release 24 Hour 2 tablets Orally Once a day , Medication List reviewed and reconciled with the patient * Allergies: N .K.D.A. Objective: * Vitals: W t:234, Temp:97.8, BP:144/78, HR:82, O2 Sat:98% on RA, Nurse:rudy, Ht: 66, BMI:37.76. * Examination: C ardiology: General Appearance: p [...] BP < 90MM HG * Follow Up: a s scheduled,and prn * Images: Billing Information: * Visit Code: 42753 Office Visit, Est Pt., Level 3. * Procedure Codes: G2211 Complex e/m visit add on. G8753 MOST RECENT SYSTOLIC BP >= 140MM HG. G8754 MOST RECENT DIASTOLIC BP < 90MM HG. * Electronic signature of Leanne Jones MD on 04/25/2025 at 10:03 AM EDT Sign off status: Pending * Provider: Rita Jones M.D. Date: 0 08/26/2024 Generated for Virgilio pineda/Saleem/Lyitting on: 10:03 AM EDT History and Physical Notes * HPI (History of Present Illness) Category Sub-Category Detail Notes Category Not es Cardiology Blood Pressure Elevated Pt here for 2 week f/u. Pt had Lisinopril increased to 20mg and Metoprolol increased to 50mg on 08/08/2024 Examination Category Sub-Category Detail Notes Category Not es Cardiology Lungs: clear, no rales or wheezes Heart sounds: RRR, normal S1, S2 General Appearance: pleasant, NAD, uses a walker to assist with ambulation
--- OUTSIDE RECORDS SUMMARY | 2024-09-26 05:15 | XMS_ITS ---
Author Organization [facility] Address [address] [place] [id number] Care Team Providers Care [employer] Inspector Name Role Phone Ricky Jones Primary Care Provider [phone] REASON FOR VISIT [facility] discharge f/u Encounters Encounter Location Date Provider Diagnosis Edwin [address] [place] [id number] 09/26/2024 Ricky Jones Assessments Encounter Date Diagnosis (ICD Code) Assessment Notes Treatment Notes Treatment Clinical Notes Section Notes 09/26/2024 Other Discharge summary with available lab/diagnostic imaging results obtained and reviewed. Discharge medication list reconciled. Appropriate counseling provided. Moderate Complexity Plan Of Treatment Treatment Notes Assessment Notes Other Discharge summary wi th available lab/diagnostic imaging results obtained and reviewed. Discharge medication list reconciled. Appropriate counseling provided. Moderate Complexity Next Appt Details Provider Name:Ricky Chaudhary ry, 06/23/2025 11:00:00 AM, [address], [address], [place], [id number], Progress Notes * CYRUSGISELLDEYVIOB:1960 ( 65 yo F)Acc No.[id number]:09/26/2024 Progress Notes Patient: LILY QUIROS Provider: Rita Jones M.D. :1960 A ge:64 Y S ex:Female Date:09/26/2024 Address:[address] [place] [place], [phone] Subjective: * Chief Complaints: * 1 . H discharge f/u. * HPI: H PI: Patient is here today for a Transition of Care Visit. Discharge from the following Facility: [facility] , Discharge date: 09/13/2024 , Date of phone contact following discharge: Monday09/16/2024 left message, Monday09/17/2024 spoke with patient. * Medical History: Objective: * Vitals: Assessment: Plan: * Treatment: * Procedure Codes: 9 9495 TRANS CARE MGMT 14 DAY DISCH, 1111F DSCHR MED/CURENT MED MERGE, G2211 Complex e/m visit add on * Images: Billing Information: * Visit Code: * Procedure Codes: 65659 TRANS CARE MGMT 14 DAY DISCH. 1111F DSCHR MED/CURENT MED MERGE. G2211 Complex e/m visit add on. * Electronic signature of Leanne Jones MD on 04/25/2025 at 10:05 AM EDT Sign off status: Pending * Provider: Rita Jones M.D. Date: 0 09/26/2024 Generated for Virgilio pineda/Saleem/eTransmitting on: 1 10:05 AM EDT History and Physical Notes * HPI (History of Present Illness) Category Sub-Category Detail Notes Category Not es HPI Patient is here today for a Paredes sition of Care Visit. Discharge from the following Facility: [facility] ,Discharge date: Monday09/13/2024 ,Date of phone contact following discharge: Monday09/16/2024 left message, Monday09/17/2024 spoke with patient
--- OUTSIDE RECORDS SUMMARY | 2024-10-11 05:15 | XMS_ITS ---
Author Organization [facility] Address [address] [facility] [address] [place] [id number] Care Team Providers Care Ballistic Technician Name Role Phone Ricky Jones Primary Care Provider [phone] REASON FOR VISIT 6 months Encounters Encounter Location Date Provider Diagnosis Edwin [address] [facility] [address] [place] [id number] 10/11/2024 Ricky Jones Plan Of Treatment Next Appt Details Provider Name:Ricky Chaudhary ry, 06/23/2025 11:00:00 AM, [address], [address], [place], [id number], Progress Notes * GISELL BRIDGESDEYVIOB:1960 ( 65 yo F)Acc No.[id number]:10/11/2024 Progress Notes Patient: LILY QUIROS Provider: Rita Jones M.D. :1960 A ge:64 Y S ex:Female Date:10/11/2024 Address:[address], [place] Subjective: * Chief Complaints: * 1 . 6 months. * Medical History: Objective: * Vitals: Assessment: Plan: * Treatment: * Images: Billing Information: * Visit Code: * Procedure Codes: * Electronic signature of Leanne Jones MD on 04/25/2025 at 10:04 AM EDT Sign off status: Pending * Provider: Rita Jones M.D. Date: 0 10/11/2024 Generated for Virgilio pineda/Saleem/Cedric on: 1 10:04 AM EDT
--- OUTSIDE RECORDS SUMMARY | 2024-10-25 07:00 | XMS_ITS ---
Author Organization [facility] Address [address] [facility] [address] [place] [id number] Care Team Providers Care Probate Clerk Name Role Phone Ricky Jones Primary Care Provider REASON FOR VISIT Discharge Follow Up Encounters Encounter Location Date Provider Diagnosis Edwin [address] [facility] [address] [place] [id number] 10/25/2024 Ricky Jones Plan Of Treatment Next Appt Details Provider Name:Ricky Chaudhary ry, 06/23/2025 11:00:00 AM, [address], [address], [place], [phone], Progress Notes * BRIDGESGISELLDEYVIOB:1960 ( 65 yo F)Acc No.[id number]:10/25/2024 Progress Notes Patient: LILY QUIROS Provider: Rita Jones M.D. :1960 A ge:64 Y S ex:Female Date:10/25/2024 Address:[address], [id number] Subjective: * Chief Complaints: * 1 . Discharge Follow Up. * Medical History: Objective: * Vitals: Assessment: Plan: * Treatment: * Images: Billing Information: * Visit Code: * Procedure Codes: * Electronic signature of Leanne Jones MD on 04/25/2025 at 10:04 AM EDT Sign off status: Pending * Provider: Rita Jones M.D. Date: 0 10/25/2024 Generated for Virgilio pineda/Saleem/Cedric on: 1 10:04 AM EDT
--- OUTSIDE RECORDS SUMMARY | 2025-03-24 07:00 | XMS_ITS ---
[facility] Address [address] [place] [id number] Care Team Providers Care Wrapping Machine Helper Name Role Phone Ricky Jones Primary Care Provider [phone] Allergies No Known Allergies Reason For Referral Diagnosis 1 Type 2 diabetes nicol itus with other specified complication (E11.69) Diagnosis 2 skilled nursing (current) use of insulin (Z79.4) Referral Organization [facility] Referring Provider First Name Ricky Referring Provider Last Name Robert Referring Provider Speciality Family Pra ctice Referred Provider Hua Hernandez Referred Provider Specialty Endocrinolog y General Notes Herlinda Hollins 2024 11:28:57 AM > faxed to [facility] Gunjan Paul Brynn 03/27/2025 09:23:27 AM > spoke to [facility] and referral has been received Referral Priority Routine REASON FOR VISIT F/U [facility] Medications Medication SIG (Take, Route, Frequency, Duration) Notes Start Date End Date Status FLUoxetine HCl 40 MG 1 cap(s) orally onc e a day Active DULoxetine HCl 30 MG 1 cap(s) orally 2 t imes a day Active FreeStyle Jonathan 3 Hampton - as directed 11/14/2023 Active Rybelsus 7 MG 1 tablet at least 30 minutes before first food, beverage or other oral medicine of the day Orally Once a day; Duration: 90 days Not-Taking Calcium-Vitamin D-Minerals 600-800 MG-UNIT 1 tab(s) orally 2 times a day Active Vitamin B12 1000 MCG 1 tablet Orally Onc e a day; Duration: 30 day(s) Active Aspirin Adult Low Dose 81 MG 1 tab(s) orally once a day Active Gabapentin 300 MG 1 cap(s) orally 3 ti mes a day; Duration: 30 day(s) Active Caplyta 42 MG 1 capsule Orally Onc e a day; Duration: 30 day(s) Active Slow Fe 45 MG 1 tablet Orally Thre e times a Week; Duration: 30 day(s) Active Xarelto 2.5 MG 1 tablet with food O rally Twice a day; Duration: 30 day(s) Active Fenofibrate 145 MG 1 tablet Orally Once a day Active Metoprolol Succinate ER 50 MG TAKE 3 TABLETS BY MOUTH DAILY Active Atorvastatin Calcium 20 MG 1 tab(s) orally once a day (at bedtime) Active Lisinopril 20 mg 2 tablets Orally Onc e a day Active NovoLOG 100 UNIT/ML 30 units am, 20 in t he afternoon and 30 in the pm subcutaneously 3 times a day Active Lantus 100 UNIT/ML 50 units subcutaneou sly every 12 hours Active metFORMIN HCl 500 MG 1 tab(s) orally 2 t imes a day Active Farxiga 5 MG 1 tablet Orally Once a day Active Carbidopa-Levodopa ER 25-100 MG 1 tablet as needed Orally Four times a Week Active Meloxicam 7.5 MG 1 tab(s) orally once a day; Duration: 90 days Active DULoxetine HCl 60 MG 1 cap(s) orally Onc e a day; Duration: 30 days Active Problems Problem Type SNOMED Code ICD Code Onset Dates Problem Status W/U Status Risk Notes Problem Information temporarily unavailable Type 2 diabetes mellitus with other specified complication (E11.69) Active confirmed Problem Information temporarily unavailable skilled nursing (current) use of insulin (Z79.4) Active confirmed Problem Information temporarily unavailable Diabetic peripheral vascular disease (E11.51) Active confirmed Vital Signs Weight 0 lbs 03/24/2025 Blood pressure systolic 132 mm Hg 03/24/20 25 Blood pressure diastolic 78 mm Hg 025 Heart Rate 82 /min 03/24/2025 Height 66 in 03/24/2025 Encounters Encounter Location Date Provider Diagnosis [facility] [address] [facility] [address] [place], [place] [id number] 03/24/2025 Ricky Jones Status post below-kn ee amputation of right lower extremity Z89.511 ; Type 2 diabetes mellitus with other specified complication E11.69 ; terminal worker (current) use of insulin Z79.4 ; Essential hypertension I10 ; Parkinson's disease, unspecified whether dyskinesia present, unspecified whether manifestations fluctuate G20.A1 ; Hyperlipidemia, unspecified hyperlipidemia type E78.5 ; Depressive disorder F32.9 and Diabetic peripheral vascular disease E11.51 Assessments Encounter Date Diagnosis (ICD Code) Assessment Notes Treatment Notes Treatment Clinical Notes Section Notes 03/24/2025 Status post below-knee amputation of right lower extremity (ICD-10 - Z89.511) Notes from [facility] admission reviewed in office today 03/24/2025 Type 2 diabetes mellitus with other specified complication (ICD-10 - E11.69) 03/24/2025 terminal worker (current) use of insulin (ICD-10 - Z79.4) 03/24/2025 Essential hypertension (ICD-10 - I10) 03/24/2025 Parkinson's disease, unspecified whether dyskinesia present, unspecified whether manifestations fluctuate (ICD-10 - G20.A1) 03/24/2025 Hyperlipidemia, unspecified hyperlipidemia type (ICD-10 - E78.5) 03/24/2025 Depressive disorder (ICD-10 - F32.9) 03/24/2025 Diabetic peripheral vascular disease (ICD-10 - E11.51) Plan Of Treatment Medication Medication Name Sig Start Date Stop Date Notes Metoprolol Succinate ER 50 MG TAKE 3 TABLETS BY MOUTH DAILY Atorvastatin Calcium 20 MG 1 tab(s) oral ly once a day (at bedtime) Lisinopril 20 mg 2 tablets Orally Once a day NovoLOG 100 UNIT/ML 30 units am, 20 in t he afternoon and 30 in the pm subcutaneously 3 times a day Lantus 100 UNIT/ML 50 units subcutaneou sly every 12 hours metFORMIN HCl 500 MG 1 tab(s) orally 2 times a day Farxiga 5 MG 1 tablet Orally Once a day Carbidopa-Levodopa ER 25-100 MG 1 tablet as needed Orally Four times a Week Treatment Notes Assessment Notes Status post below-knee amput ation of right lower extremity Notes from admission reviewed in [facility] today Referrals Referral Date Details 03/24/2025 03/24/2025, Hua Hernandez Next Appt Details Follow Up: 3 Months, Reason: Provider Name:Ricky shin, 06/23/2025 11:00:00 AM, [address], [address], [place], [phone], Progress Notes * FELIX BRIDGESOB:1960 ( 65 yo F)Acc No.[id number]:03/24/2025 Progress Notes Patient: LILY QUIROS Provider: Rita Jones M.D. :1960 A ge:65 Y S ex:Female Date:03/24/2025 Address:[address] [place] [address] , [place], [id number] Subjective: * Chief Complaints: * 1 . F/U [facility]. * HPI: H PI: 65 year old female presents with c/o Here for follow up on:?Pt is here to follow up on discharge from [facility]. Pt was discharged on 03/14/2025. Pt had a right below the knee amupation at on 10/22/2024. SHe now has a prosthesis and has completed rehab and is back home. She has no complaints today. * Medical History: T ype 2 Diabetes, [facility], Hyperlipidemia, Hypertension, Hypertriglyceridemia, LT Leg Venous Stasis, Depression, Declared Disabled, 2011, [facility], [facility], s/p Lumpectomy- Radiation, 2013, DKA and multi Drug Resisitant E.Coli UTI, 08/2014, LT Carpal Tunnel Syndrome, s/p Surgery 2015, Right foot ucer with gas gangrene and osteomyelitis, Obesity, Parkinson Disease, Right BKA 2024. * Surgical History: L T Leg Skin Grafts , Carpal Tunnel Release 07/2015, Cholecystectomy 08/16/2016, Foot surgery -right foot I&D with wide excision/debridement of non viable oft tissue and bone; right partial 4-5th ray amputation/resection/ Dr. Smith at [facility] 05/15/2024, right BKA - done at 2024. * Hospitalization/Major Diagno stic Procedure: C ongestion- [facility] ER 07/2010, Dehydration, UTI, DKA- [facility] 08/2014, Gallbladder Attack - [facility] 08/16-, MKA- [facility] 10/09-, Cellulitis- [facility] 01/07-06/2019, [facility] with T2DM, diabetic foor ulcer; cellulitis RLE; gangrene RLE; osteomyelitis; venous insuffciency; parkinson disease; falls at home ; UTI; morbid obesity; onychodystrophy; nail dystrophy; hypokalemia 05/13-05/20/2024. * Family History: F ather: alive, Gout arthritis. M other: alive, Quad bypass type 2 diabetes. 2 sister(s) - healthy. . * Social History: C URRENT TOBACCO USE: No S moking Status: Patient does NOT smoke. C affeine: yes, frequency:. Exercise: no. Home smoke detector use: yes. Marital Status: . Past smoking status: no. Recreational drug use: no. Alcohol: no. * Medications: T aking Fenofibrate 145 MG Tablet 1 tablet Orally Once a day , Taking Farxiga 5 MG Tablet 1 tablet Orally Once a day , Taking Xarelto 2.5 MG Tablet 1 tablet with [...] 3 times a day , Taking FreeStyle Jnoathan 3 [place] - Device as directed , Taking FLUoxetine HCl 40 MG Capsule 1 cap(s) orally once a day , Taking DULoxetine HCl 30 MG Capsule Delayed Release Particles 1 cap(s) orally 2 times a day , Taking metFORMIN HCl 500 MG Tablet 1 tab(s) orally 2 times a day , Taking NovoLOG 100 UNIT/ML Solution 30 units am, 20 in the afternoon and 30 in the pm subcutaneously 3 times a day , Taking Lantus 100 UNIT/ML Solution 50 units subcutaneously every 12 hours , Taking Calcium-Vitamin D-Minerals 600-800 MG-UNIT Tablet Chewable 1 tab(s) orally 2 times a day , Taking Carbidopa- Levodopa ER 25-100 MG Tablet Extended Release 1 tablet as needed Orally Four times a Week , Taking Atorvastatin Calcium 20 MG Tablet 1 tab(s) orally once a day (at bedtime) , Taking Meloxicam 7.5 MG Tablet 1 tab(s) orally once a day , Taking Lisinopril 20 mg Tablet 2 tablets Orally Once a day , Taking Metoprolol Succinate ER 50 MG Tablet Extended Release 24 Hour TAKE 3 TABLETS BY MOUTH DAILY , Taking DULoxetine HCl 60 MG Capsule Delayed Release Particles 1 cap(s) orally Once a day , Not-Taking Rybelsus 7 MG Tablet 1 tablet at least 30 minutes before first food, beverage or other oral medicine of the day Orally Once a day , Medication List reviewed and reconciled with the patient * Allergies: N .K.D.A. Objective: * Vitals: W t: 0, Temp: 97.6, BP: 132/78, HR: 82, Nurse: SF, Ht: 66. * Examination: C ardiology: General Appearance: p leasant, NAD, uses a walker to assist with ambulation. H eart sounds: R RR, normal S1, S2. L ungs: c lear, no rales or wheezes. E xtremities: p rosthesis in place at right BKA site. Assessment: * Assessment: 1. S tatus post below-knee amputation of right lower extremity - Z89.511 (Primary) ?2. T ype 2 diabetes mellitus with other specified complication - E11.69 3 .?skilled nursing (current) use of insulin - Z79.4 4 . E ssential hypertension - I10 5 . P arkinson's disease, unspecified whether dyskinesia present, unspecified whether manifestations fluctuate - G20.A1 6 . H yperlipidemia, unspecified hyperlipidemia type - E78.5 7 . D epressive disorder - F32.9 8 . Diabetic peripheral vascular disease - E11.51 Plan: * Treatment: 2. T ype 2 diabetes mellitus with other specified complication Continue Farxiga Tablet, 5 MG, 1 tablet, Orally, Once a day; C ontinue metFORMIN HCl Tablet, 500 MG, 1 tab(s), orally, 2 times a day; C ontinue NovoLOG Solution, 100 UNIT/ML, 30 units am, 20 in the afternoon and 30 in the pm, subcutaneously, 3 times a day; C ontinue Lantus Solution, 100 UNIT/ML, 50 units, subcutaneously, every 12 hours. ? Referral To:[facility] Reason: 3. L dennis term (current) use of insulin Referral To:[facility] Reason: 4. E ssential hypertension Continue Lisinopril Tablet, 20 mg, 2 tablets, Orally, Once a day; C ontinue Metoprolol Succinate ER Tablet Extended Release 24 Hour, 50 MG, TAKE 3 TABLETS BY MOUTH DAILY. 5. P arkinson's disease, unspecified whether dyskinesia present, unspecified whether manifestations fluctuate Continue Carbidopa-Levodopa ER Tablet Extended Release, 25-100 MG, 1 tablet as needed, Orally, Four times a Week. 6. H yperlipidemia, unspecified hyperlipidemia type Continue Atorvastatin Calcium Tablet, 20 MG, 1 tab(s), orally, once a day (at bedtime). * Procedure Codes: G 2211 Complex e/m visit add on, 1036F TOBACCO NON-USER, G8950 PREHTN/HTN BP DOC INDCD F/U DOC, G8752 MOST RECENT SYSTOLIC BP < 140MM HG, G8754 MOST RECENT DIASTOLIC BP < 90MM HG, 3075F SYST BP GE 130 - 139MM HG, 3078F DIAST BP < 80 MM HG * Follow Up: 3 Months * Images: [facility]03/24/[facility] Billing Information: * Visit Code: 67964 Office Visit, Est Pt., Level 4. * Procedure Codes: G2211 Complex e/m visit add on. 1036F TOBACCO NON-USER. G8950 PREHTN/HTN BP DOC INDCD F/U DOC. G8752 MOST RECENT SYSTOLIC BP < 140MM HG. G8754 MOST RECENT DIASTOLIC BP < 90MM HG. 3075F SYST BP GE 130 - 139MM HG. 3078F DIAST BP < 80 MM HG. * Electronic signature of Leanne Jones MD on 04/25/2025 at 10:04 AM EDT Sign off status: Pending * Provider: Rita Jones M.D. Date: 0 03/24/2025 Generated for Virgilio pineda/Saleem/Cedric on: 10:04 AM EDT History and Physical Notes * HPI (History of Present Illness) Category Sub-Category Detail Notes Category Not es HPI Here for follow up on: Pt is her e to follow up on discharge from [facility]. Pt was discharged on 03/14/2025. Pt had a right below the knee amupation at on 10/22/2024. SHe now has a prosthesis and has completed rehab and is back home. She has no complaints today Examination Category Sub-Category Detail Notes Category Not es Cardiology Lungs: clear, no rales or wheezes Heart sounds: RRR, normal S1, S2 Extremities: prosthesis in place at right BKA site General Appearance: pleasant, NAD, uses a walker to assist with ambulation Consultation Request Notes Referral Date Referring Provider Referred Provider Not es 03/24/2025 Ricky Jones Samhitha
--- OUTSIDE RECORDS SUMMARY | 2025-03-31 05:04 | XMS_ITS ---
Author Organization [facility] Address [address] [facility] [address] [place] [id number] Care Team Providers Care Associate Professor Name Role Phone Ricky Jones Primary Care Provider [phone] REASON FOR VISIT due indira, col, bone density Encounters Encounter Location Date Provider Diagnosis [place] [address] [facility] [address] [place] [phone] 03/31/2025 Ricky Jones Encounter for screen ing for malignant neoplasm of breast Z12.31 ; Encounter for screening for osteoporosis Z13.820 and Menopause Z78.0 Assessments Encounter Date Diagnosis (ICD Code) Assessment Notes Treatment Notes Treatment Clinical Notes Section Notes 03/31/2025 Encounter for screening for malignant neoplasm of breast (ICD-10 - Z12.31) 03/31/2025 Encounter for screening for osteoporosis (ICD-10 - Z13.820) 03/31/2025 Menopause (ICD-10 - Z78.0) Plan Of Treatment Pending Test Test Name Order Date Bone density 03/31/2025 Mammogram 03/31/2025 Next Appt Details Provider Name:Ricky Chaudhary ry, 06/23/2025 11:00:00 AM, [address], [address], [place], [phone], Progress Notes * FELIX BRIDGESOB:1960 ( 65 yo F)Acc No.[id number]:03/31/2025 Patient: Jono GERMANDELLA LILY :1960 A ge:65 Y S ex:Female Address:[place] [address] Subjective: * Chief Complaints: * D ue indira, col, bone density * Medical History: * Surgical History: * Hospitalization/Major Diagno stic Procedure: * Medications: Objective: * Vitals: * Physical Examination: Assessment: * Assessment: 1. E ncounter for screening for malignant neoplasm of breast - Z12.31 (Primary) ?2. E ncounter for screening for osteoporosis - Z13.820 3 . M enopause - Z78.0 Plan: * Treatment: 2.?Encounter for screening for osteoporosis?Imaging: Bone density* Ramya Cat 04/07/2025 03:2 1:25 PM EDT > sent to Herlinda to schedule with Mammogram at [facility] 3.?Menopause?Imaging: Bone density* Ramya Cat 04/07/2025 03:2 1:25 PM EDT > sent to Herlinda to schedule with Mammogram at [facility] * Procedure Codes: * true * Date: Generated for Virgilio pineda/Saleem/eTransmitting on: 1 10:03 AM EDT
--- OUTSIDE RECORDS SUMMARY | 2025-04-15 06:30 | XMS_ITS ---
[facility] Address [address] [place] [id number] Care Team Providers Care Vendor Management Associate Name Role Phone Ricky Jones Primary Care Provider Brady Nievesine Unavailable [phone] Allergies No Known Allergies Results Component Value Reference Range Notes Influenza Screen (in house) Reviewed date:04/15/2025 01:22:24 PM Interpretation:Negative Performing Lab: Notes/Report: Negative results Neg CBC Fingerstick (in house) Reviewed date:04/15/2025 01:22:03 PM Interpretation: Performing Lab: Notes/Report: wbc 8.2 3.5 - 10 lym 26.6% 15 - 50 mid 7.5% 2 - 15 gran 65.9% 35 - 80 rbc 3.72 3.5 - 5.5 hgb 9.5 11.5 - 16.5 hct 29.3 35 - 55 mcv 78.8 75 - 100 mch 25.7 25 - 35 mchc 32.5 31 - 38 plat 212 100 - 400 Covid test (in house) Reviewed date:04/15/2025 01:22:35 PM Interpretation:Negative Performing Lab: Notes/Report: Negative Result: Neg REASON FOR VISIT congestion, cough, runny nose Medications Medication SIG (Take, Route, Frequency, Duration) Notes Start Date End Date Status Rybelsus 7 MG 1 tablet at least 30 minutes before first food, beverage or other oral medicine of the day Orally Once a day; Duration: 90 days Not-Taking Atorvastatin Calcium 20 MG 1 tab(s) orally once a day (at bedtime) Active Lisinopril 20 mg 2 tablets Orally Onc e a day; Duration: 90 days Active Farxiga 5 MG 1 tablet Orally Once a day; Duration: 90 days Active Metoprolol Succinate ER 50 MG 3 tablets Orally Once a day; Duration: 90 days Active DULoxetine HCl 60 MG 1 cap(s) orally Onc e a day; Duration: 30 days Active metFORMIN HCl 500 MG 1 tab(s) orally 2 t imes a day Active NovoLOG 100 UNIT/ML 30 units am, 20 in t he afternoon and 30 in the pm subcutaneously 3 times a day Active Lantus 100 UNIT/ML 30 units subcutaneou sly every 12 hours Active Carbidopa-Levodopa ER 25-100 MG 1 tablet as needed Orally Four times a Week Active Calcium-Vitamin D-Minerals 600-800 MG-UNIT 1 tab(s) orally 2 times a day Active Meloxicam 7.5 MG 1 tab(s) orally once a day; Duration: 90 days Active FreeStyle Jonathan [address] [place] - as directed 11/14/2023 Active FLUoxetine HCl 60 MG 1 cap(s) orally onc e a day Active DULoxetine HCl 30 MG 1 cap(s) orally 2 t imes a day Active Cefuroxime Axetil 500 MG 1 tablet Orally every 12 hrs; Duration: 7 days 04/15/2025 Active Albuterol Sulfate HFA 108 (90 Base) MCG/ACT 2 puffs Inhalation 3 times a day; Duration: 14 days 04/15/2025 Active Gabapentin 300 MG 1 cap(s) orally 3 ti mes a day; Duration: 30 day(s) Not-Miguel ing Slow Fe 45 MG 1 tablet Orally Thre e times a Week; Duration: 30 day(s) Active Aspirin Adult Low Dose 81 MG 1 tab(s) orally once a day Active Fenofibrate 145 MG 1 tablet Orally Once a day Active Xarelto 2.5 MG 1 tablet with food O rally Twice a day; Duration: 30 day(s) Active Vitamin B12 1000 MCG 1 tablet Orally Onc e a day; Duration: 30 day(s) Active Caplyta 42 MG 1 capsule Orally Onc e a day; Duration: 30 day(s) Not-Miguel ing Vital Signs Weight 215.4 lbs 04/15/2025 Blood pressure systolic 124 mm Hg 04/15/20 25 Blood pressure diastolic 60 mm Hg 10/14/2 025 Heart Rate 70 /min 04/15/2025 Height 66 in 04/15/2025 BMI 34.76 kg/m2 04/15/2025 Encounters Encounter Location Date Provider Diagnosis [facility] [address] [place] [address] [address] [place] [id number] 04/15/2025 Nat Nieves Acute bronchitis J20.9 Assessments Encounter Date Diagnosis (ICD Code) Assessment Notes Treatment Notes Treatment Clinical Notes Section Notes 04/15/2025 Acute bronchitis (ICD-10 - J20.9) fluids, rest, supportive measures for fever/symptom relief Plan Of Treatment Medication Medication Name Sig Start Date Stop Date Notes Cefuroxime Axetil 500 MG 1 tablet Orally every 12 hrs; Duration: 7 days 04/15/2025 Albuterol Sulfate HFA 108 (9 0 Base) MCG/ACT 2 puffs Inhalation 3 times a day; Duration: 14 days 04/15/2025 Treatment Notes Assessment Notes Acute bronchitis fluids, rest, suppor tive measures for fever/symptom relief Next Appt Details Follow Up: prn, Reason: Provider Name:Ricky Chaudhary ry, 06/23/2025 11:00:00 AM, [facility] [address] [facility], [address], [place], [id number], Progress Notes * FELIX BRIDGESOB:1960 ( 65 yo F)Acc No.[id number]:04/15/2025 Progress Notes Patient: LILY QUIROS Provider: GAURANG Oliveira :1960 A ge:65 Y S ex:Female Date:04/15/2025 Address:[address], [id number] Pcp:Ricky Jones Subjective: * Chief Complaints: * 1 . Congestion, cough, runny nose. * HPI: E NT/respiratory: eating and drinking OK. 65 year old female presents with c/o cough T he pt is here today with c/o chest congestion, runny nose and non productive cough since Monday. Pt states she is using OTC Mucinex DM and that has helped a little. c/o nasal congestion. c/o Fever.? c/o headache. Denies : sore throat. D enies : ear pain. D enies : rhinorrhea. D enies : post nasal drainage. D enies : Chest Pain. D enies : Short of Breath.?Denies : chest congestion. * ROS: D ERMATOLOGY: no R bert. n o H gonzález. G ASTROENTEROLOGY: no N ausea. n o V omiting. n o D iarrhea.? U ROLOGY: no D ifficulty urinating. n o B lood in urine. * Medical History: T ype 2 Diabetes, [place] [facility], Hyperlipidemia, Hypertension, Hypertriglyceridemia, LT Leg Venous Stasis, Depression, Declared Disabled, 2011, LT Foot Extensive Celluitis, [facility] 2013, LT Breast Cancer, s/p Lumpectomy- Radiation, [...] partial 4-5th ray amputation/resection/ Dr. Smith at [facility] 05/15/2024, right BKA - done at 2024. * Hospitalization/Major Diagno stic Procedure: C ongestion- [facility] ER 07/2010, Dehydration, UTI, DKA- [facility] 08/2014, Gallbladder Attack - [facility] 08/16-, MKA- [facility] 10/09-, Cellulitis- [facility] 01/07-06/2019, [facility] with T2DM, diabetic foor ulcer; cellulitis RLE; [...] tablet Orally Once a day , Taking Slow Fe 45 MG Tablet Extended Release 1 tablet Orally Three times a Week , Taking Aspirin Adult Low Dose 81 MG Tablet Delayed Release 1 tab(s) orally once a day , Taking FreeStyle Jonathan 3 [place] - Device as directed , Taking FLUoxetine HCl 60 MG Tablet 1 cap(s) orally once a day , Taking DULoxetine HCl 30 MG Capsule Delayed Release Particles 1 cap(s) orally 2 times a day , Taking Calcium-Vitamin D-Minerals 600-800 MG-UNIT Tablet Chewable 1 tab(s) orally 2 times a day , Taking Meloxicam 7.5 MG Tablet 1 tab(s) orally once a day , Taking DULoxetine HCl 60 MG Capsule Delayed Release Particles 1 cap(s) orally Once a day , Taking metFORMIN HCl 500 MG Tablet 1 tab(s) orally 2 times a day , Taking NovoLOG 100 UNIT/ML Solution 30 units am, 20 in the afternoon and 30 in the pm subcutaneously 3 times a day , Taking Lantus 100 UNIT/ML Solution 30 units subcutaneously every 12 hours , Taking Carbidopa-Levodopa ER 25-100 MG Tablet Extended Release 1 tablet as needed Orally Four times a Week , Taking Atorvastatin Calcium 20 MG Tablet 1 tab(s) orally once a day (at bedtime) , Taking Lisinopril 20 mg Tablet 2 tablets Orally Once a day , Taking Farxiga 5 MG Tablet 1 tablet Orally Once a day , Taking Metoprolol Succinate ER 50 MG Tablet Extended Release 24 Hour 3 tablets Orally Once a day , Not-Taking Caplyta 42 MG Capsule 1 capsule Orally Once a day , Not-Taking Gabapentin 300 MG Capsule 1 cap(s) orally 3 times a day , Not- Taking Rybelsus 7 MG Tablet 1 tablet at least 30 minutes before first food, beverage or other oral medicine of the day Orally Once a day , Medication List reviewed and reconciled with the patient * Allergies: N .K.D.A. Objective: * Vitals: W t: 215.4, Temp: 100.1, BP: 124/60, HR: 70, O2 Sat: 97% on RA, Nurse: YAMILA, Ht: 66, BMI:34.76. * Examination: G eneral Examination: General Appearance: N AD,, alert, pleasant, well nourished and hydrated. H EENT: s clera and conjunctiva clear, PERRLA, TM's normal, translucent. O ral cavity: m ucosa moist and WNL, no erythema. N camille: s upple, no lymphadenopathy. Heart: R RR. L ungs: B ilateral crackles posteriorly. N eurologic Exam: a lert and oriented. Assessment: * Assessment: 1. A cute bronchitis - J20.9 (Primary) Plan: * Treatment: * Labs: * L ab: Covid test (in house) (Collection Date & Time - 04/15/2025) N egative Value Reference Range R esult: Neg * Indira Lujan 04/15/2025 1 1:16:39 AM EDT > Provider reviewed results while patient in office.Nat Nieves 04/15/2025 01:22:32 PM EDT > ?Lab: Influenza Screen (in house) (Collection Date & Time - 04/15/2025) ?Negative* Value Reference Range r esults Neg * Indira Lujan 04/15/2025 1 1:17:47 AM EDT > Provider reviewed results while patient in office.Nat Nieves 04/15/2025 01:22:12 PM EDT > ?Lab: CBC Fingerstick (in house) (Collection Date & Time - 04/15/2025)* Value Reference Range w bc 8.2 3.5 - 10 * l ym 26.6% 15 - 50 * m id 7.5% 2 - 15 * g ran 65.9% 35 - 80 * r bc 3.72 3.5 - 5.5 * h gb 9.5 11.5 - 16.5 * h ct 29.3 35 - 55 * m cv 78.8 75 - 100 * m ch 25.7 25 - 35 * m chc 32.5 31 - 38 * p lat 212 100 - 400 * Indira Lujan Dawn 04/15/2025 1 1:19:22 AM EDT > Provider reviewed results while patient in office.Nat Nieves 04/15/2025 01:22:01 PM EDT > * Procedure Codes: 8 5025 CBC WITH AUTO DIFF, 18785 Flu Test- Nasal Swab, Modifiers: QW , 96353 COVID TEST IN HOUSE, Modifiers: QW * Follow Up: p rn * Images: Billing Information: * Visit Code: 77624 Office Visit, Est Pt., Level 3. * Procedure Codes: 04922 CBC WITH AUTO DIFF. 44656 Flu Test- Nasal Swab. Modifiers: QW 52732 COVID TEST IN HOUSE. Modifiers: QW * Electronic signature of Cata gail Nieves APRN on 04/25/2025 at 10:03 AM EDT Sign off status: Pending * Provider: GAURANG Oliveira Date: Generated for Virgilio ng/Maryg/eTransmitting on: 10:03 AM EDT History and Physical Notes * HPI (History of Present Illness) Category Sub-Category Detail Notes Category Not es ENT/respiratory sore throat ear pain Short of Breath Chest Pain cough The pt is here today with c/o chest congestion, runny nose and non productive cough since Monday. Pt states she is using OTC Mucinex DM and that has helped a little Fever post nasal drainage headache chest congestion rhinorrhea nasal congestion Examination Category Sub-Category Detail Notes Category Not es General Examination HEENT: sclera and c onjunctiva clear, PERRLA, TM's normal, translucent Heart: RRR Lungs: Bilateral crackles p osteriorly General Appearance: NAD,, alert, pleasan t, well nourished and hydrated Neurologic Exam: alert and oriented Neck: supple, no lymphaden opathy Oral cavity: mucosa moist and WNL , no erythema
--- OUTSIDE RECORDS SUMMARY | 2025-04-22 06:30 | XMS_ITS ---
[facility] Address [address] [place] [id number] Care Team Providers Care C Unix Developer Name Role Phone Ricky Jones Primary Care Provider Allergies No Known Allergies Results Component Value Reference Range Notes CBC Fingerstick (in house) Reviewed date:04/22/2025 12:28:16 PM Interpretation: Performing Lab: Notes/Report: wbc 10.2 3.5 - 10 lym 23.0% 15 - 50 mid 6.4% 2 - 15 gran 70.6% 35 - 80 rbc 3.97 3.5 - 5.5 hgb 10.2 11.5 - 16.5 hct 31.0 35 - 55 mcv 77.9 75 - 100 mch 25.7 25 - 35 mchc 33.0 31 - 38 plat 249 100 - 400 REASON FOR VISIT check up on bronchitis, runny nose Medications Medication SIG (Take, Route, Frequency, Duration) Notes Start Date End Date Status Lantus 100 UNIT/ML 30 units subcutaneou sly every 12 hours Active Carbidopa-Levodopa ER 25-100 MG 1 tablet as needed Orally Four times a Week Active Lisinopril 20 mg 2 tablets Orally Onc e a day; Duration: 90 days Active Farxiga 5 MG 1 tablet Orally Once a day; Duration: 90 days Active Atorvastatin Calcium 20 MG 1 tab(s) orally once a day (at bedtime) Active metFORMIN HCl 500 MG 1 tab(s) orally 2 t imes a day Active NovoLOG 100 UNIT/ML 30 units am, 20 in t he afternoon and 30 in the pm subcutaneously 3 times a day Active Meloxicam 7.5 MG 1 tab(s) orally once a day; Duration: 90 days Active DULoxetine HCl 60 MG 1 cap(s) orally Onc e a day; Duration: 30 days Active Calcium-Vitamin D-Minerals 600-800 MG-UNIT 1 tab(s) orally 2 times a day Active Aspirin Adult Low Dose 81 MG 1 tab(s) orally once a day Active Slow Fe 45 MG 1 tablet Orally Thre e times a Week; Duration: 30 day(s) Active DULoxetine HCl 30 MG 1 cap(s) orally 2 t imes a day Active FreeStyle Jonathan 3 [place] - as directed 11/14/2023 Active FLUoxetine HCl 60 MG 1 cap(s) orally onc e a day Active Vitamin B12 1000 MCG 1 tablet Orally Onc e a day; Duration: 30 day(s) Active Fenofibrate 145 MG 1 tablet Orally Once a day Active Gabapentin 300 MG 1 cap(s) orally 3 ti mes a day; Duration: 30 day(s) Not-Miguel ing Xarelto 2.5 MG 1 tablet with food O rally Twice a day; Duration: 30 day(s) Active Rybelsus 7 MG 1 tablet at least 30 minutes before first food, beverage or other oral medicine of the day Orally Once a day; Duration: 90 days Not-Taking Zithromax Z-Darvin 250 MG as directed Orall y daily; Duration: 5 days 04/22/2025 Active Albuterol Sulfate HFA 108 (90 Base) MCG/ACT 2 puffs Inhalation 3 times a day; Duration: 14 days 04/15/2025 Active Caplyta 42 MG 1 capsule Orally Onc e a day; Duration: 30 day(s) Not-Miguel ing Metoprolol Succinate ER 50 MG 3 tablets Orally Once a day; Duration: 90 days Active Cefuroxime Axetil 500 MG 1 tablet Orally every 12 hrs; Duration: 7 days 04/15/2025 Active Vital Signs Weight 208.8 lbs 04/22/2025 Blood pressure systolic 128 mm Hg 04/22/20 25 Blood pressure diastolic 68 mm Hg 025 Heart Rate 70 /min 04/22/2025 Height 66 in 04/22/2025 BMI 33.7 kg/m2 04/22/2025 Encounters Encounter Location Date Provider Diagnosis [facility] [address] [place] [id number] 04/22/2025 Ricky [place] Acute URI J06.9 Assessments Encounter Date Diagnosis (ICD Code) Assessment Notes Treatment Notes Treatment Clinical Notes Section Notes 04/22/2025 Acute URI (ICD-10 - J06.9) Plan Of Treatment Medication Medication Name Sig Start Date Stop Date Notes Zithromax Z-Darvin 250 MG as directed Orall y daily; Duration: 5 days 04/22/2025 Next Appt Details Follow Up: via phone to repo rt progress, Reason: Provider Name:Ricky Chaudhary ry, 06/23/2025 11:00:00 AM, [address], [address], [place], [phone], Progress Notes * FELIX BRIDGESOB:1960 ( 65 yo F)Acc No.[id number]:04/22/2025 Progress Notes Patient: LILY QUIROS Provider: Rita Jones M.D. :1960 A ge:65 Y S ex:Female Date:04/22/2025 Address:[address] [place] [address] [address] [place], [id number] Subjective: * Chief Complaints: * 1 . Check up on bronchitis, runny nose. * HPI: E NT/respiratory: 65 year old female presents with c/o nasal congestion P t here for follow up on Bronchitis. Pt states was seen in office on 04/15 by Katlyn Nieves. Pt states she feels she has gotten worse. Pt states the pressure under her eyes has gotten worse and that her nose during the day is running and stopped up at night. Pt was prescribed an inhaler and antibiotic.? * Medical History: T ype 2 Diabetes, [place] [facility], Hyperlipidemia, Hypertension, Hypertriglyceridemia, LT Leg Venous Stasis, Depression, Declared Disabled, 2011, LT Foot Extensive Celluitis, [facility] [employer] 2013, LT Breast Cancer, s/p Lumpectomy- Radiation, [...] partial 4-5th ray amputation/resection/ Dr. Smith at [facility] 05/15/2024, right BKA - done at 2024. * Hospitalization/Major Diagno stic Procedure: C ongestion- [facility] ER 07/2010, Dehydration, UTI, DKA- [facility] 08/2014, Gallbladder Attack - [facility] 08/16-, MKA- [facility] 10/09-, Cellulitis- [facility] 01/07-06/2019, [facility] with T2DM, diabetic foor ulcer; cellulitis [...] a day , Taking FreeStyle Jonathan 3 [place] - Device as directed , Taking FLUoxetine [...] 3 tablets Orally Once a day , Taking Cefuroxime Axetil 500 MG Tablet 1 tablet Orally every 12 hrs , Taking Albuterol Sulfate HFA 108 (90 Base) MCG/ACT Aerosol Solution 2 puffs Inhalation 3 times a day , Not-Taking Caplyta 42 MG Capsule 1 capsule Orally Once a day , Not-Taking Gabapentin 300 MG Capsule 1 cap(s) orally 3 times a day , Not-Taking Rybelsus 7 MG Tablet 1 tablet at least 30 minutes before first food, beverage or other oral medicine of the day Orally Once a day , Medication List reviewed and reconciled with the patient * Allergies: N .K.D.A. Objective: * Vitals: W t: 208.8, Temp: 98.1, BP: 128/68, HR: 70, Nurse: KATHERINE, Ht: 66, BMI:33.7. * Examination: E NT/Respiratory: General Appearance: N AD, using a walker to assist with ambulation. O ral cavity : e rythema without exudate on pharynx. H eart : R RR. L ungs: c lear to auscultation bilaterally. Assessment: * Assessment: 1. Jb shaniquelotus URI - J06.9 (Primary) Plan: * Treatment: Value Reference Range w bc 10.2 3.5 - 10 * l ym 23.0% 15 - 50 * m id 6.4% 2 - 15 * g ran 70.6% 35 - 80 * r bc 3.97 3.5 - 5.5 * h gb 10.2 11.5 - 16.5 * h ct 31.0 35 - 55 * m cv 77.9 75 - 100 * m ch 25.7 25 - 35 * m chc 33.0 31 - 38 * p lat 249 100 - 400 * Marian Conteh 04/22/2025 11 :29:14 AM EDT > Provider reviewed results while patient in office. * Procedure Codes: G 2211 Complex e/[place], [address] CAPILLARY BLOOD DRAW, 83206 CBC WITH AUTO DIFF * Follow Up: v ia phone to report progress * Images: Billing Information: * Visit Code: 74835 Office Visit, Est Pt., Level 3. * Procedure Codes: G2211 Complex e/[place]. [address] CAPILLARY BLOOD DRAW. 89279 CBC WITH AUTO DIFF. * Electronic signature of Leanne Jones MD on 04/25/2025 at 10:03 AM EDT Sign off status: Pending * Provider: Rita Jones M.D. Date: Generated for Virgilio pineda/Saleem/Tusmitting on: 10:03 AM EDT History and Physical Notes * HPI (History of Present Illness) Category Sub-Category Detail Notes Category Not es ENT/respiratory nasal congestion Pt here for fol low up on Bronchitis. Pt states was seen in office on 04/15 by Katlyn Nieves. Pt states she feels she has gotten worse. Pt states the pressure under her eyes has gotten worse and that her nose during the day is running and stopped up at night. Pt was prescribed an inhaler and antibiotic Examination Category Sub-Category Detail Notes Category Not es ENT/Respiratory Oral cavity : erythema without exudate on pharynx Heart : RRR Lungs: clear to auscultatio n bilaterally General Appearance: NAD, using a walker to assist with ambulation
--- OUTSIDE RECORDS SUMMARY | 2025-04-25 10:04 | XMS_ITS | Clinical Summary ---
Author Organization [facility] Address [address] [place] [address] Care Team Providers Care Tool Programmer Name Role Phone Ricky Jones MD Primary Care Provider + [phone] Allergies No known active allergies Medications DULoxetine [...] Hemoglobin A1C 6.7(A) 4.5 - 5.7 % [facility] Lot Number [id number] [facility] Expiration Date 01/29/25 [facility] Blood 07/25/2023 10:5 8 AM EST Renard Pierson MD POINT OF CARE TEST ORD ERABLES Final Result [facility]
[address] [place] [address], * Microalbumin / Creatinine Urine Ratio - Urine, Clean Catch (01/04/2023 10:05 AM EDT) Microalbumin/C reatinine Ratio 56.4 mg/g 01/04/2023 6:46 PM EDT [facility] Creatinine, Urine 74.5 mg/dL 01/04/2023 6:46 PM EDT [facility] Microalbumin, Urine 4.2 mg/dL 01/04/2023 6:46 PM EDT [facility] Urine Urine specimen obtained by clean catch procedure / Unknown Collection / Unknown 01/04/2023 10:05 AM EDT 01/04/2023 10:05 AM EDT us Renard Pierson MD URINE ORDERABLES Final Result [facility]
[address] [place] [address], * SCANNED - EYE EXAM (02/15/2021) Anatomical Region Laterality Modality Other us Renard Pierson MD CHART REVIEW TABS F inal Result from Last 3 Months or Most Recently Relevant to Health Maintenance Insurance MEDICARE A & B Member Subscriber Plan / Payer (Ef fective 2013-Present) Name:Emiliana Painter Member ID:[id number] Relation to Subscriber:Self Name:Emiliana Painter Subscriber ID:[id number] Payer ID:[id number] Group ID:Not on file Type:Not on file Address: [facility] [id number] Care Teams Tool Programmer Relationship Specialty Start Date End Date Ricky Jones MD [address] [facility] [address] [facility] [address] [facility] [place] [address] PCP - General Family Medicine 04/23/20
--- OUTSIDE RECORDS SUMMARY | 2025-04-25 10:04 | XMS_ITS | Clinical Summary ---
Author Organization [facility] Address [address] [facility] [address] [place] [address] Phone Care Team Providers Care Family Law Paralegal Name Role Phone Sherwin Gusman MD [ ] Conditions or Problems Problem Name Problem Code Onset Date Status Entry Date Provider Comment Standard Description Annotate CELLULITIS, LEFT FOOT L03.119 (ICD-10-CM ) 12/05 Active 12/05 Lidya Gerardo Cellulitis of unspecified part of limb LT 3RD TOE ABSCESS L03.039 (ICD-10-CM ) 09/10 Active 09/11 Alize W Cellulitis of unspecified toe DIABETIC FOOT INFECTION, LEFT 682.7 (ICD-9-CM) 03/05 Inactive 03/05 Alize W Cellulitis and abscess of foot, except toes DIABETIC FOOT ULCER 651643833 (SNOMED CT) 03/05 Inactive 03/05 Alize W Diabetic foot ulcer MRSA INFECTION 935278960 (SNOMED CT) 03/05 Inactive 03/05 Alize W Methicillin resistant Staphylococcus aureus infection PEDAL EDEMA 036945621 (SNOMED CT) 09/09 Inactive 09/09 Alize W Edema DM TYPE I E10.9 (ICD-10-CM ) 09/09 Active 09/09 Lidya Carrillo Type 1 diabetes mellitus without complications Diabetes with neurological manifestation s, type I, uncontrolled 693026192 (SNOMED CT) 03/05 Inactive 03/05 Lidya Carrillo 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 Diabetes with other specified manifestation s, type I, uncontrolled 744824793 (SNOMED CT) 03/05 Inactive 03/05 Lidya Gerardo Disorder due to type 1 diabetes mellitus Elevated C-reactive protein (CRP) R79.82 (ICD-10-CM ) 03/09 Inactive 03/10 Lidya Carrillo Elevated C-reactive protein (CRP) MDR Z16.24 (ICD-10-CM ) 03/06 Inactive 03/10 Lidya Carrillo Resistance to multiple antibiotics RESEARCH CLERK B95.7 (ICD-10-CM ) 03/06 Inactive 03/10 Lidya Carrillo Other staphylococcus as the cause of diseases classified elsewhere PEDAL EDEMA 520276233 (SNOMED CT) 09/09 Removed 09/09 Lidya Carrillo Edema LLE CELLULITIS 682.6 (ICD-9-CM) 09/08 Active 09/09sa W Cellulitis and abscess of leg, except foot VENOUS STASIS 70971356 (SNOMED CT) Active W Venous stasis Elevated C-reactive protein (CRP) R79.82 (ICD-10-CM ) 03/09 Removed 03/10 W Elevated C-reactive protein (CRP) Diabetes with neurological manifestation s, type I, uncontrolled 389242771 (SNOMED CT) 03/05 Removed 03/05 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 MDR Z16.24 (ICD-10-CM ) 03/06 Removed 03/10 W Resistance to multiple antibiotics RESEARCH CLERK B95.7 (ICD-10-CM ) 03/06 Removed 03/10 W Other staphylococcus as the cause of diseases classified elsewhere Diabetes with other specified manifestation s, type I, uncontrolled 963905367 (SNOMED CT) 03/05 Removed 03/05sa W Disorder due to type 1 diabetes mellitus DIABETIC ULCER, LEFT 2ND TOE 40200343 (SNOMED CT) 03/05 Inactive 03/05 W Ulcer of foot Problem excluded fro m report: Morbid obesity 678220876 (SNOMED CT) 03/06 Active 03/06 Alize W Morbid obesity Obesity 157574362 (SNOMED CT) 03/06 Inactive 03/06 Sherwin Gusman MD Obesity DIABETIC ULCER, LEFT 2ND TOE 30087579 (SNOMED CT) 03/05 Removed 03/05 Lidya Carrillo Ulcer of foot DIABETIC FOOT ULCER 456573415 (SNOMED CT) 03/05 Removed 03/05 Lidya Carrillo Diabetic foot ulcer DM, TYPE 1, WITH MANIFESTATION S 250.81 (ICD-9-CM) 03/05 Inactive 03/05 Lidya Carrillo Diabetes mellitus with other specified manifestations, type I [juvenile type], not stated as uncontrolled DM, TYPE I, WITH NEUROLOGICAL MANIFESTATION S E10.49 (ICD-10-CM ) 03/05 Inactive 03/05 Lidya Carrillo Type 1 diabetes mellitus with other diabetic neurological complication DIABETIC PERIPHERAL NEUROPATHY (250.60) E11.42 (ICD-10-CM ) 03/05 Active 03/05 Lidya Carrillo Type 2 diabetes mellitus with diabetic polyneuropathy MRSA INFECTION 593253833 (SNOMED CT) 03/05 Removed 03/05 Lidya Carrillo Methicillin resistant Staphylococcus aureus infection DIABETIC FOOT INFECTION, LEFT 682.7 (ICD-9-CM) 03/05 Removed 03/05 Lidya Carrillo Cellulitis and abscess of foot, except toes Medications Medication Instructions Start Date Stop Date Generic Name NDC Provider BACTROBAN 2 % EXTERNAL CREAM Apply to affected area twice daily. MUPIROCIN CALCIUM [id number] Sherwin Gusman MD TRIAMCINOLONE ACETONIDE 0.1 % CREA Apply to affected area twice daily. TRIAMCINOLONE ACETONIDE 85660660469 Sherwin Gusman MD KEFLEX 500 MG ORAL CAPSULE Take one pill four times a day. CEPHALEXIN 18546689506 Sherwin Gusman MD ROCEPHIN SOLR 2gm IV q 24 [facility] CEFTRIAXONE SODIUM SOLR 56354388039 Sahra Price KEFLEX 500 MG ORAL CAPSULE take one by mouth four times a day x 2 weeks CEPHALEXIN 64769463958 Sherwin Gusman MD ACIDOPHILUS PROBIOTIC TABS LACTOBACILLUS 25891302525 Sherwin Gusman MD ROCEPHIN SOLR 2gm IV q 24 [facility] CEFTRIAXONE SODIUM SOLR 09656129759 Sahra [facility] VANCOMYCIN HCL SOLR 2.25gm IV daily [facility] [phone] VANCOMYCIN HCL SOLR 34171983162 Sahra [facility] 1 GM INTRAVENOUS SOLUTION RECONSTITUTED 1gm IV daily [facility] ERTAPENEM SODIUM 65070685094 [facility] 1 GM INTRAVENOUS SOLUTION RECONSTITUTED 1gm IV daily [facility] ERTAPENEM SODIUM 11011200807 Sahra [facility] VANCOMYCIN HCL SOLR 2.25gm IV daily [facility] [phone] VANCOMYCIN HCL SOLR 36306560152 Sahra [facility] DULOXETINE HCL 60 MG CPEP DULOXETINE HCL 22001352720 Cindy A METOPROLOL TARTRATE 50 MG TABS METOPROLOL TARTRATE 07886856609 Cindy A CYMBALTA CAPSULE DELAYED RELEASE PARTICLES DULOXETINE HCL CPEP 17714678164 Cindy A LOPRESSOR TABS METOPROLOL TARTRATE TABS 68365617239 Cindy A TRILIPIX CPDR CHOLINE FENOFIBRATE CPDR 07759935881 Cindy A BACTRIM DS 800-160 MG TABS Take one pill twice a day. SULFAMETHOXAZOLE- TRIMETHOPRIM 42071412538 Cindy A TEFLARO 600 MG SOLR 600mg IV q 12hrs [facility] CEFTAROLINE FOSAMIL [phone] Sahra Price BACTRIM DS 800-160 MG TABS Take one pill twice a day. SULFAMETHOXAZOLE- TRIMETHOPRIM 01481314939 Sherwin Gusman MD NOVOLOG SOLUTION INSULIN ASPART SOLN 34004939352 Sherwin Gusman MD TEFLARO 600 MG SOLR 600mg IV q 12hrs [facility] CEFTAROLINE FOSAMIL [phone] Sahra Price CLEOCIN 300 MG CAPS CLINDAMYCIN HCL 08842611817 Sherwin Gusman MD CLEOCIN 300 MG CAPS CLINDAMYCIN HCL 86154513144 Sherwin Gusman MD VANCOMYCIN HCL SOLR Vancomycin 2GM IV Q24hrs/INPAT VANCOMYCIN HCL SOLR 32505449721 Shasta Schultz RN CLINDAMYCIN HCL 300 MG CAPS take one by mouth three times a day CLINDAMYCIN HCL 26863014823 Sherwin Gusman MD VANCOMYCIN HCL SOLR Vancomycin 2GM IV Q24hrs/INPAT VANCOMYCIN HCL SOLR 56115867523 Natalia Bolivar RN NOVOLOG 100 UNIT/ML SUBCUTANEOUS SOLUTION INSULIN ASPART 74851186733 Sherwin Gusman MD LANTUS 100 UNIT/ML SOLN INSULIN GLARGINE 36455694905 Sherwin Gusman MD METFORMIN HCL 500 MG TABS METFORMIN HCL 21354312651 Sherwin Gusman MD FENOFIBRATE CAPS FENOFIBRATE CAPS 72862489095 Sherwin Gusman MD HM VITAMIN D3 CAPSULE CHOLECALCIFEROL CAPS 28789034647 Minda Boone TRILIPIX CPDR CHOLINE FENOFIBRATE CPDR 30174521256 Minda Boone TRADJENTA TABS LINAGLIPTIN TABS 51892299556 Minda Boone NOVOLOG SOLUTION INSULIN ASPART SOLN 95841743476 Minda Boone CHOICEFUL MULTIVITAMIN CAPS MULTIPLE VITAMINS-MINERALS 33794795280 Minda Boone LOPRESSOR TABS METOPROLOL TARTRATE TABS 61332341229 Minda Boone LISINOPRIL TABS LISINOPRIL TABS 72243787747 Minda Boone INVOKANA TABLET CANAGLIFLOZIN TABS 87845337612 Minda Boone GABAPENTIN CAPS GABAPENTIN CAPS 61047326857 Minda Boone FLUOXETINE HCL CAPS FLUOXETINE HCL CAPS 30885861721 Minda Boone CVS FISH OIL CAPSULE OMEGA-3 FATTY ACIDS CAPS 50155277539 Minda Boone FENOFIBRATE CAPS FENOFIBRATE CAPS 42202177054 Minda Boone CYMBALTA CAPSULE DELAYED RELEASE PARTICLES DULOXETINE HCL CPEP 07228081374 Minda Boone CRESTOR TABLET ROSUVASTATIN CALCIUM TABS 09550097278 Minda Boone B COMPLEX CAPS B COMPLEX VITAMINS [phone] Minda Boone Medications Administered No information available. Allergies, Adverse Reactions, Alerts No information available. Results Date Name Value Unit Range Flag Description Office Visit: f/u rm 9 DIET BONDING AND COMPOSITE FABRICATOR yes Dietary management education, guidance, and counseling (procedure) Lab Report: Vancomycin Troug h VANCOMY CHAL 5.1 ug/mL 10.0-20.0 L vancom ycin level, serum, trough Lab Report: Basic Metabolic Panel GFR EST 87 mL/min estimated solo merular filtration rate Lab Report: CBC w Auto Diff IMM GRANU % 0.4 % 0.0-0.6 N Immature granulocytes/100 leukocytes in Blood BASOPHIL % 0.7 % 0.0-1.0 N Basophils/ 100 leukocytes in Blood by Manual count % EOS AUTO 7.4 % 0.0-3.0 H Eosinophil s/100 leukocytes in Blood by Automated count MONOCYTE BF 7.2 % 0.0-12.0 N monocyte s as percent of body fluid leukocytes LYMPHOCY BF 20.3 % 24.0-44.0 L lymphoc ytes as percent of body fluid leukocytes NEUTROP BF 64.0 % 41.0-71.0 N Neutroph ils/100 leukocytes in Body fluid BASOABSOLMAN 0.05 K/MCL {Cells}/u L 0.00-0.20 N basophils, absolute, manual EOS ABSLT 0.57 10*3/uL 0.10-0.30 H Eosinophi ls [#/volume] in Blood MONOCYTABMAN 0.55 K/MCL {Cells}/u L 0.00-1.00 N monocytes, absolute, manual LYMPHSABSMAN 1.56 K/MCL {Cells}/u L 0.60-4.80 N lymphocytes, absolute, manual ABS NEUTROPH 4.92 10*3/uL 1.50-8.30 N Neutro phils [#/volume] in Blood RDW_ 13.9 11.3-14.5 N RDW, no uni ts MCHC 32.6 G/DL 32.0-36.0 N MCHC [Mass/ volume] by Automated count MCH 28.8 pg 27.0-31.0 N MCH [Entiti c mass] by Automated count MCV 88.2 fL 80.0-99.0 N MCV [Entiti c volume] by Automated count Lab Report: Comprehensive Me tabolic Panel ANIONGAP 7 mmol/L 3-11 N anion gap, s mitesh GFRC 128 mL/min/1. 73m2 Glomerular Filtration Rate Calculation ALBUMIN 4.1 g/dL 3.2-4.8 N Albumin [Mass/volume] in Serum or Plasma PROTEIN, TOT 7.1 g/dL 5.7-8.2 N Protein [Mass/volume] in Serum or Plasma CO2 31 mmol/L 20-31 N Carbon dioxid e, total [Moles/volume] in Venous blood CHLORIDE 101 mmol/L 99-109 N Chloride [Moles/volume] in Serum or Plasma Lab Report: Culture WOUND wi th Gram Stain CULTURE Specimen/So urce: Wound/LLE FOOT culture, comment Chart Maintenance: updated H H labs 09/15/14 CRPCARDRISK 1.2 mg/L C reactiv e protein [Mass/volume] in Serum or Plasma ESR 55 mm/h Erythrocyte sedimentation rate by Westergren method Chart Maintenance: updated H H labs 10/16/14 BILI TOTAL 0.3 mg/dL Bilirubin. total [Mass/volume] in Serum or Plasma ALK PHOS 64 U/L Alkaline clark sphatase [Enzymatic activity/volume] in Blood SGPT (ALT) 43 U/L Alanine aminotransferase [Enzymatic activity/volume] in Serum or Plasma SGOT (AST) 24 U/L Aspartate aminotransferase [Enzymatic activity/volume] in Serum or Plasma CALCIUM 9.5 mg/dL Calcium [Moles/volume] in Serum or Plasma POTASSIUM 4.3 mmol/L Potassium [Moles/volume] in Serum or Plasma SODIUM 141 mmol/L Sodium [Moles/volume] in Serum or Plasma CREATININE 0.9 mg/dL Creatinine [Mass/volume] in Serum or Plasma BUN 18 mg/dL Urea nitrogen [Mass/volume] in Serum or Plasma GLUCOSE SER 101 mg/dL Glucose [Mass/volume] in Serum or Plasma LYMPHS % 20.7 % Lymphocytes/ 100 leukocytes in Blood by Automated count PMN % 62.5 % Neutrophils/1 00 leukocytes in Blood by Automated count PLATELETS 227 10*3/mm3 Platelets [#/volume] in Blood by Automated count HCT 41.9 % Hematocrit [V olume Fraction] of Blood by Automated count HGB 13.4 g/dL Hemoglobin [Mass/volume] in Blood RBC 4.78 10*6/mm3 Erythrocytes [#/volume] in Blood by Automated count WBC 7.8 10*3/mm3 Leukocytes [#/volume] in Blood by Automated count Office Visit: rm8 MEDS REVIEW Done Documenta tion of current medications (procedure) CIGARET SMKG yes Tobacco smoking status SMOK STATUS Former smoker Tobacco smoking status Plan of Care Type Date Detail Pending order Continue oral an tibiotics Pending order Continue IV anti biotics Pending order Weekly PICC Line Care Pending order Weekly Labs (Con tinue) Pending order CBC w/o Differen tial Pending order C- reactive prot ein Pending order Sedimentation Ra te (ESR) Pending order CMP Pending order CBC w/o Differen tial Pending order C- reactive prot ein Pending order Sedimentation Ra te (ESR) Pending order CMP Pending order CBC w/o Differen tial Pending order Continue IV anti biotics Pending order PICC Line Insert ion Pending order Continue IV anti biotics Pending order PIV/Butterfly Pending order CMP Pending order CBC w/o Differen tial Pending order Continue IV anti biotics Pending order PIV/Butterfly Pending order Vancomycin Troug h Pending order BMP Pending order New IV antibioti c Pending order CMP Pending order CBC w/o Differen tial Pending order Vancomycin Troug h Pending order Unna Boot Pending order Discontinue IV a ntibiotics Pending order PICC Removal Pending order CMP Pending order CBC w/o Differen tial Pending order C- reactive prot ein Pending order Sedimentation Ra te (ESR) Pending order Continue IV anti biotics Pending order Weekly PICC Line Care Pending order Continue IV anti biotics Pending order Weekly PICC Line Care Pending order CMP Pending order CBC w/o Differen tial Pending order C- reactive prot ein Pending order Sedimentation Ra te (ESR) Pending order Continue IV anti biotics Pending order CMP Pending order CBC with Differe ntial Pending order C- reactive prot ein Pending order Sedimentation Ra te (ESR) Pending order New IV antibioti c Pending order PICC Line Insert ion Pending order Discontinue IV a ntibiotics Pending order Continue IV anti biotics Pending order Vancomycin Pending order BMP Pending order CBC w/o Differen tial Pending order C- reactive prot ein Pending order Sedimentation Ra te (ESR) Pending order Vancomycin Troug h Pending order New IV antibioti c Patient education Medications Patient education Medications Patient education Medications Patient education Medications Patient education Medications Patient education Medications Procedures Code Procedure Name Date Entry Date CPT-ca Continue IV antibiotics 2014 CPT-63892 PIV/Butterfly CPT-29909 Vancomycin Trough CPT-89905 BMP CPT-tess New IV antibiotic CPT-07462 CMP CPT-36886 CBC w/o Differential CPT-13446 Vancomycin Trough CPT-44285 Unna Boot CPT-DC Discontinue IV antibiotics 2 CPT-PICREM PICC Removal CPT-80696 CMP CPT-02987 CBC w/o Differential CPT-50059 C- reactive protein CPT-06173 Sedimentation Rate (ESR) 201 10/10/12 CPT-ca Continue IV antibiotics 2013 CPT-wpc Weekly PICC Line Care CPT-ca Continue IV antibiotics 2013 CPT-wpc Weekly PICC Line Care CPT-24883 CMP CPT-78102 CBC w/o Differential CPT-37431 C- reactive protein CPT-59083 Sedimentation Rate (ESR) 201 10/10/05 CPT-ca Continue IV antibiotics 2013 CPT-02853 CMP [id number] CBC with Differential 2013 CPT-57476 C- reactive protein CPT-65503 Sedimentation Rate (ESR) 201 10/10/01 CPT-tess New IV antibiotic CPT-57202 PICC Line Insertion CPT-DC Discontinue IV antibiotics 2 CPT-ca Continue IV antibiotics 2013 CPT-J3370 Vancomycin CPT-30473 BMP CPT-74920 CBC w/o Differential CPT-14275 C- reactive protein CPT-94912 Sedimentation Rate (ESR) 201 10/10/03 CPT-18244 Vancomycin Trough CPT-tess New IV antibiotic Vital Signs Date Name Value Unit Description BMI (Body Mass Index) 46.04 kg/m2 Bod y Mass Index (Ratio) Body Temperature 97.7 [degF] temperat ure E&M BP Diastolic 74 mm[Hg] blood pressu re, diastolic BP Systolic 118 mm[Hg] blood pressur e, systolic Heart Rate 72 /min pulse rate Height 66 [in_us] height E&M Respiratory Rate 14 /min respirat ory rate E&M Weight Measured 284.2 [lb_av] weight E& M Weight Measured 284.2 [lb_av] weight E& M Immunizations No information available. Advance Directives No information available.
--- OUTSIDE RECORDS SUMMARY | 2025-04-25 10:05 | XMS_ITS | Clinical Summary ---
Author Organization Healthcare Address [address] [place] [address] Care Team Providers Care Graphic Design Teacher Name Role Phone Ricky Jones MD Primary Care Provider [phone] Allergies No known active allergies Medications atorvastatin [...] two weeks ago who presented to the [facility] on 09/25/2024 with worsening erythema at [...] [facility] with any questions or concerns at [phone]. It is important that you get your [...] [facility] [address] [place] [address] Sridhar Mejia DO S/P BKA [...] any time in the past [address] [facility], were you homeless or living in a nursing home (including now)? No 09/26/2024 Utilities Answer Date Recorded In the past 12 months has th e [employer], gas, oil, or water company threatened to [...] 02/02/2004 Sigmoidoscopy 02/02/2004 [facility]-Colorectal Cancer Screening 02/02/2004 [id number] Vaccine ( - 2024- season) 2025 04/18/2023, [...] Antibody Negative Negative 09/25/2024 7:51 PM EDT [facility] Blood Venous blood specimen / Unknown Venipuncture / Unknown 09/25/2024 6:45 PM EDT 09/25/2024 7:09 PM EDT us Jill CARNES LAB BLOOD ORDERABLES Final R esult [facility] [address] [place] [address] * (ABNORMAL) Hemoglobin A1c (09/25/2024 6:45 PM EDT) Hemoglobin A1c 5.9(H) <5.7 % 09/26/2024 12:31 AM EDT [facility] Blood Venous blood specimen / Unknown Venipuncture / Unknown 09/25/2024 6:45 PM EDT 09/25/2024 6:51 PM EDT Narrative [facility] - 09/26/2024 12:31 AM EDT HA1C Interpretive Data: Diagnosis of Diabetes: Diabetic > or = 6.5% Pre-diabetic 5.7 to 6.4% Non-diabetic < or = 5.6% Glycemic Targets for Type I and Type II Diabetics: Non- Adults <7.0% Adults <6.0% Children and Adolescents <7.5% Source: [place] [employer]. Standards of medical care in diabetes,2017. Diabetes Care.2017:40 (suppl 1):S1-S135. HbA1c assay performed by an ion-exchange chromatography method that is certified traceable to the DCCT. us Mitesh Azul MD LAB BLOOD ORDERABLES Final Result [facility] [address] [place] [address] * Mammography Breast Screening Tomosynthesis Bilateral (06/27/2023 [...] lumpectomy, 05/2014 (Lumpectomy of left breast from [facility]); left breast surgery, 05/2014 (Lumpectomy of left breast from [facility]); and left breast lumpectomy, 05/2014 (Lumpectomy of left breast from [facility]). Medical history includes breast cancer and radiation therapy. COMPARISON STUDIES: Compared to: 06/06/2019 Mammography Breast Diagnostic Tomosynthesis Bilateral at [facility] 06/08/2020 Mammography Breast Diagnostic Tomosynthesis Bilateral at [facility] 06/09/2021 Mammography Breast Screening Tomosynthesis Bilateral at [facility] 06/14/2022 Mammography Breast Screening Tomosynthesis Bilateral at [facility] BREAST COMPOSITION: The breasts have scattered areas of fibroglandular density. FINDINGS: There are post-lumpectomy changes present in the left breast. There is no evidence of suspicious masses, calcifications, or other abnormal findings. Nasra Landry APRN IMG BI PROCEDURES Final R esult from Last 3 Months or Most Recently Relevant to Health Maintenance [place] [id number] MEDICARE [facility] Advance Directives * Full Code (Latest Code Status on File) Date Activated Date Inactivated Comments 09/25/2024 9:01 PM 10/02/2024 4:16 PM Care Teams Graphic Design Teacher Relationship Specialty Start Date End Date Ricky Jones MD [address] [facility] [address] [place] [address] PCP - General 11/13/20
--- OUTSIDE RECORDS SUMMARY | 2025-04-25 10:05 | XMS_ITS | Patient Health Record ---
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 Role Phone Ricky Jones Primary Care Provider [phone] Nat Nieves Unavailable [phone] Allergies No Known Allergies Results Component Value [...] Interpretation:Negative Performing Lab: Notes/Report: Negative Result: Neg CBC Fingerstick (in house) Reviewed date:04/22/2025 12:28:16 [...] - 38 plat 249 100 - 400 CMP Reviewed date:07/16/2024 09:14:47 AM Interpretation:CRP 83 Performing Lab: Notes/Report: CRP 83 CALCIUM 8.9 glucose 150 bun/creat 18/0.7 sodium 145 potassium 4.2 chloride 107 CO2 26 SGOT 18 SGPT 14 alk phos 60 Total Protein 6.1 Albumin 3.3 total bili 0.3 WBC 6.1 Hgb 10.6 Hct 32.6 RBC 3.65 MCV 89.4 MCH 29.1 MCHC 32.5 Gran % 53.8 Lymph% 26.4 monocytes % 7.6 PLATLETS [id number] Sed rate 48 CMP Reviewed date:07/05/2024 10:46:33 AM Interpretation:CRP 9 Performing Lab: Notes/Report: CRP 9 CALCIUM 8.7 glucose 112 bun/creat 25/0.8 sodium 144 potassium 4.7 chloride 107 CO2 28 SGOT 13 SGPT 11 alk phos 54 Total Protein 5.8 Albumin 3.1 total bili 0.2 WBC 6.6 Hgb 10.1 Hct 31.8 RBC 3.55 MCV 89.7 MCH 28.5 MCHC 31.8 Gran % 57.3 Lymph% 27.7 monocytes % 6.4 PLATLETS [id number] CPK 49 Sed rate 37 CMP Reviewed date:06/25/2024 11:52:06 AM Interpretation: Performing Lab: Notes/Report: H-Vancomycin, Trough Reviewed date:05/28/2024 10:28:35 AM Interpretation: Performing Lab: Notes/Report: VANCT 14.8 5.0-10.0 ug/mL H-BMP Reviewed date:05/28/2024 10:28:35 AM Interpretation: Performing Lab: Notes/Report: NA 141 136-145 mmol/L K 4.4 3.5-5.1 mmoL/L CL 107 98-107 mmol/L CO2 25 22.0-30.0 mmol/L GAP 13.4 5-15 mEq/L BUN 25 7-17 mg/dl CREATT 0.70 0.52-1.04 mg/dl GFRAA 102 >60 ML/MIN EGFR 84 >60 ml/min GLU 87 74-100 mg/dl CA 9.9 8.4-10.2 mg/dl H-Vancomycin, Trough Reviewed date:05/27/2024 11:20:21 AM Interpretation: Performing Lab: Notes/Report: VANCT 22.4 5.0-10.0 ug/mL CRITICAL RESULT Results called and read back/verified to:Soraya Hernandez RN [] on 05/24/24 at 1447 By Stephanie Lopez H-BMP Reviewed date:05/15/2024 12:47:51 PM Interpretation: Performing Lab: Notes/Report: NA 138 136-145 mmol/L K 4.1 3.5-5.1 mmoL/L CL 106 98-107 mmol/L CO2 22 22.0-30.0 mmol/L GAP 14.1 5-15 mEq/L BUN 25 7-17 mg/dl CREATT 0.60 0.52-1.04 mg/dl CRCLE 99 50-200 mL/min GFRAA 121 >60 ML/MIN EGFR 100 >60 ml/min GLU 92 74-100 mg/dl CA 8.7 8.4-10.2 mg/dl H-CBC Reviewed date:05/15/2024 12:47:51 PM Interpretation: Performing Lab: Notes/Report: WBC 11.7 4.8-10.8 K/mm3 RBC 3.93 4.20-5.40 M/mm3 HGB 11.9 12.2-16.2 g/dL HCT 34.9 37.0-47.0 % MCV 88.8 81-99 fl MCH 30.2 27.0-31.2 pg MCHC 34.0 31.8-35.4 g/dL RDW 14.1 11.5-17.5 % PLT 195 142-424 K/mm3 MPV 10.0 7.4-10.4 fl NE% 78.0 37.0-80.0 % LY% 12.4 10-50 % MO% 5.5 1.7-9.3 % EO% 3.4 0.1-12.0 % BA% 0.6 0.1-2.0 % NE# 9.1 1.8-7.8 K/mm3 LY# 1.5 0.7-4.5 K/mm3 MO# 0.7 0.1-1.0 K/mm3 EO# 0.4 0.0-0.4 K/mm3 BA# 0.1 0-0.2 K/mm3 H-Vancomycin, Trough Reviewed date:05/21/2024 03:58:22 PM Interpretation: Performing Lab: Notes/Report: VANCT 16.2 5.0-10.0 ug/mL H-BMP Reviewed date:05/21/2024 03:58:22 PM Interpretation: Performing Lab: Notes/Report: NA 143 136-145 mmol/L K 4.1 3.5-5.1 mmoL/L Delta: 3.4 on 05/20/24 CL 104 98-107 mmol/L CO2 26 22.0-30.0 mmol/L GAP 17.1 5-15 mEq/L BUN 24 7-17 mg/dl CREATT 0.80 0.52-1.04 mg/dl GFRAA 87 >60 ML/MIN EGFR 72 >60 ml/min GLU 87 74-100 mg/dl CA 9.6 8.4-10.2 mg/dl CBC Reviewed date:07/02/2024 09:09:38 AM Interpretation: Performing Lab: Notes/Report: H-Vancomycin, Trough Reviewed date:05/20/2024 10:30:02 AM Interpretation:16.6 Performing Lab: Notes/Report: VANCT 16.6 5.0-10.0 ug/mL H-CMP Reviewed date:05/20/2024 08:42:17 AM Interpretation: Performing Lab: Notes/Report: NA 145 136-145 mmol/L K 3.4 3.5-5.1 mmoL/L CL 108 98-107 mmol/L CO2 26 22.0-30.0 mmol/L GAP 14.4 5-15 mEq/L BUN 22 7-17 mg/dl Delta: 16 on 05/17/24 CREATT 0.80 0.52-1.04 mg/dl Delta: 0.60 on 05/17/24 CRCLE 98 50-200 mL/min GFRAA 87 >60 ML/MIN Delta: 121 on 05/17/24 EGFR 72 >60 ml/min GLU 156 74-100 mg/dl CA 9.4 8.4-10.2 mg/dl BILIT 0.6 0.2-1.3 mg/dl AST 42 14-36 U/L ALT 9 12-78 U/L TP 7.3 6.3-8.2 g/dl ALB 3.7 3.5-5.0 g/dl GLOB 3.6 1.3-3.2 g/dL AGRATIO 1.0 1.1-1.8 ALP 65 38-126 U/L H-CBC Reviewed date:05/20/2024 08:42:17 AM Interpretation: Performing Lab: Notes/Report: WBC 11.6 4.8-10.8 K/mm3 RBC 4.55 4.20-5.40 M/mm3 HGB 13.2 12.2-16.2 g/dL HCT 39.8 37.0-47.0 % MCV 87.6 81-99 fl MCH 29.1 27.0-31.2 pg MCHC 33.2 31.8-35.4 g/dL RDW 14.0 11.5-17.5 % PLT 344 142-424 K/mm3 Delta: 244 on 05/17/24-0557 MPV 9.0 7.4-10.4 fl NE% 75.9 37.0-80.0 % LY% 13.5 10-50 % MO% 6.1 1.7-9.3 % EO% 3.6 0.1-12.0 % BA% 0.8 0.1-2.0 % NE# 8.8 1.8-7.8 K/mm3 LY# 1.6 0.7-4.5 K/mm3 MO# 0.7 0.1-1.0 K/mm3 EO# 0.4 0.0-0.4 K/mm3 BA# 0.1 0-0.2 K/mm3 H-Vancomycin, Peak Reviewed date:05/17/2024 08:21:11 AM Interpretation: Performing Lab: Notes/Report: VANCP 19.8 11-39 ug/ml M-Complete Blood Count Man D if Reviewed date:05/17/2024 08:21:11 AM Interpretation: Performing Lab: Notes/Report: WBC 9.3 4.8-10.8 K/mm3 RBC 3.94 4.20-5.40 M/mm3 HGB 11.7 12.2-16.2 g/dL HCT 34.5 37.0-47.0 % MCV 87.5 81-99 fl MCH 29.8 27.0-31.2 pg MCHC 34.1 31.8-35.4 g/dL RDW 14.2 11.5-17.5 % PLT 244 142-424 K/mm3 MPV 9.0 7.4-10.4 fl NE% 74.6 37.0-80.0 % LY% 13.9 10-50 % MO% 5.2 1.7-9.3 % EO% 5.8 0.1-12.0 % BA% 0.5 0.1-2.0 % NE# 7.0 1.8-7.8 K/mm3 LY# 1.3 0.7-4.5 K/mm3 MO# 0.5 0.1-1.0 K/mm3 EO# 0.6 0.0-0.4 K/mm3 BA# 0.0 0-0.2 K/mm3 MDIFF MANUAL DIFFERENTIAL MANUAL DIFF TCC 100 NEUT%M 77 42-76 % LYMPH%M 17 10-50 % MONO%M 3 2-9 % EOS%M 3 0-3 % PLTE Normal RM Normal H-BMP Reviewed date:05/17/2024 08:21:11 AM Interpretation: Performing Lab: Notes/Report: NA 140 136-145 mmol/L K 3.9 3.5-5.1 mmoL/L CL 108 98-107 mmol/L CO2 25 22.0-30.0 mmol/L GAP 10.9 5-15 mEq/L BUN 16 7-17 mg/dl CREATT 0.60 0.52-1.04 mg/dl CRCLE 101 50-200 mL/min GFRAA 121 >60 ML/MIN EGFR 100 >60 ml/min GLU 158 74-100 mg/dl Delta: 93 on 05/16/24-06 CA 8.8 8.4-10.2 mg/dl H-Vancomycin, Trough Reviewed date:05/17/2024 08:21:11 AM Interpretation: Performing Lab: Notes/Report: VANCT 11.2 5.0-10.0 ug/mL H-Urine Culture and Sensitiv ity Reviewed date:05/20/2024 08:42:17 AM Interpretation: Performing Lab: Notes/Report: CUU No growth. CBC Reviewed date:06/10/2024 08:49:31 AM Interpretation: Performing Lab: Notes/Report: M-Complete Blood Count Man D if Reviewed date:10/21/2024 04:06:40 PM Interpretation: Performing Lab: Notes/Report: WBC 7.7 4.8-10.8 K/mm3 RBC 3.53 4.20-5.40 M/mm3 HGB 9.6 12.2-16.2 g/dL HCT 31.3 37.0-47.0 % MCV 88.7 81-99 fl MCH 27.2 27.0-31.2 pg MCHC 30.7 31.8-35.4 g/dL RDW 15.4 11.5-17.5 % PLT 232 142-424 K/mm3 MPV 11.3 7.4-10.4 fl NE% 71.3 37.0-80.0 % LY% 19.0 10-50 % MO% 5.4 1.7-9.3 % EO% 3.4 0.1-12.0 % BA% 0.6 0.1-2.0 % NE# 5.5 1.8-7.8 K/mm3 LY# 1.5 0.7-4.5 K/mm3 MO# 0.4 0.1-1.0 K/mm3 EO# 0.3 0.0-0.4 Kmm3 BA# 0.1 0-0.2 K/mm3 MDIFF MANUAL DIFFERENTIAL MANUAL DIFF TCC 100 NEUT%M 78 42-76 % LYMPH%M 18 10-50 % MONO%M 4 2-9 % PLTE Normal HYPO 1+ H-CMP Reviewed date:10/21/2024 09:20:20 AM Interpretation: Performing Lab: Notes/Report: NA 139 136-145 mmol/L K 4.2 3.5-5.1 mmoL/L CL 107 98-107 mmol/L CO2 26 22.0-30.0 mmol/L GAP 10.2 5-15 mEq/L BUN 26 7-17 mg/dl CREATT 0.80 0.52-1.04 mg/dl CRCLE 87 50-200 mL/min GFRAA 87 >60 ML/MIN EGFR 72 >60 ml/min GLU 216 74-100 mg/dl CA 9.5 8.4-10.2 mg/dl BILIT 0.2 0.2-1.3 mg/dl AST 24 14-36 U/L ALT 23 12-78 U/L TP 7.1 6.3-8.2 g/dl ALB 3.7 3.5-5.0 g/dl GLOB 3.4 1.3-3.2 g/dL AGRATIO 1.1 1.1-1.8 ALP 73 38-126 U/L CBC Reviewed date:06/03/2024 09:15:05 AM Interpretation: Performing Lab: Notes/Report: Medications Medication SIG (Take, Route, Frequency, Duration) Notes Start Date End Date Status Meloxicam 7.5 MG 1 tab(s) orally once a day; Duration: 90 days Active DULoxetine HCl 60 MG 1 cap(s) orally Onc e a day; Duration: 30 days Active DULoxetine HCl 30 MG 1 cap(s) orally 2 t imes a day Active Calcium-Vitamin D-Minerals 600-800 MG-UNIT 1 tab(s) orally 2 times a day Active FreeStyle Jonathan 3 [place] - as directed 11/14/2023 Active FLUoxetine HCl 60 MG 1 cap(s) orally onc e a day Active Zithromax Z-Darvin 250 MG as directed Orall y daily; Duration: 5 days 04/22/2025 Active Lantus 100 UNIT/ML 30 units subcutaneou sly every 12 hours Active Carbidopa-Levodopa ER 25-100 MG 1 tablet as needed Orally Four times a Week Active metFORMIN HCl 500 MG 1 tab(s) orally 2 t imes a day Active NovoLOG 100 UNIT/ML 30 units am, 20 in t he afternoon and 30 in the pm subcutaneously 3 times a day Active Albuterol Sulfate HFA 108 (90 Base) [...] 12 hrs; Duration: 7 days 04/15/2025 Active Lisinopril 20 mg 2 tablets Orally Onc e a day; Duration: 90 days Active Farxiga 5 MG 1 tablet Orally Once a day; Duration: 90 days Active Atorvastatin Calcium 20 MG 1 tab(s) orally once a day (at bedtime) Active Aspirin Adult Low Dose 81 MG 1 tab(s) orally once a day Active Vitamin B12 1000 MCG 1 tablet Orally Onc e a day; Duration: 30 day(s) Active Slow Fe 45 MG 1 tablet Orally Thre e times a Week; Duration: 30 day(s) Active Fenofibrate 145 MG [...] Once a day; Duration: 90 days Not-Taking Immunizations Vaccine Route Administration Date Status Comme nts [...] Administered COVID 19 Moderna Unknown 06/03/2021 Administered Problems Problem Type SNOMED Code ICD Code Onset Dates Problem Status W/U Status Risk Notes Problem Information temporarily unavailable Essential hypertension (I10) Active confirmed Problem Information temporarily unavailable Morbid obesity (E66.01) Active confirmed Problem Information temporarily unavailable Hypertriglyceridemia (E78.1) Active confirmed Problem Information temporarily unavailable Hypoglycemia (E16.2) Active confirmed Problem Information temporarily unavailable Hypoglycemia associated with diabetes (E11.649) Active confirmed Problem Information temporarily unavailable History of breast cancer (Z85.3) Active confirmed Problem Information temporarily unavailable Generalized anxiety disorder (F41.1) Active confirmed Problem Information temporarily unavailable Type 2 diabetes mellitus with other specified complication (E11.69) Active confirmed Problem Information temporarily unavailable Other specified diabetes mellitus with foot ulcer (E13.621) Active confirmed Problem Information temporarily unavailable Mixed hyperlipidemia (E78.2) Active confirmed Problem Information temporarily unavailable Parkinson's disease (G20) Active confirmed Problem Information temporarily unavailable Venous insufficiency (chronic) (peripheral) (I87.2) Active confirmed Problem Information temporarily unavailable Non-pressure chronic ulcer of other part of unspecified foot with unspecified severity (L97.509) Active confirmed Problem Information temporarily unavailable 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 current use of 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 (Z79.4) Active confirmed Problem Information temporarily unavailable Depressive disorder (F32.9) Active confirmed Problem Information temporarily unavailable group home (current) use of insulin (Z79.4) Active confirmed Problem Information temporarily unavailable Primary osteoarthritis of right knee (M17.11) Active confirmed Problem Information temporarily unavailable Hyperlipidemia, unspecified hyperlipidemia type (E78.5) Active confirmed Problem Information temporarily unavailable Atopic dermatitis, unspecified type (L20.9) Active confirmed Problem Information temporarily unavailable PAD (peripheral artery disease) (I73.9) Active confirmed Problem Information temporarily unavailable Type 2 diabetes mellitus with mild nonproliferative diabetic retinopathy without macular edema, unspecified eye (E11.3299) Active confirmed Problem Information temporarily unavailable Bilateral hearing loss, unspecified hearing loss type (H91.93) Active confirmed Problem Information temporarily unavailable Numbness of left hand (R20.8) Active confirmed Problem Information temporarily unavailable Chronic otitis externa of left ear, unspecified type (H60.62) Active confirmed Problem Information temporarily unavailable Type 2 diabetes mellitus with hypoglycemia without coma, unspecified whether alf insulin use (E11.649) Active confirmed Problem Information temporarily unavailable Osteomyelitis of right foot, unspecified type (M86.9) Active confirmed Problem Information temporarily unavailable 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) Active confirmed Problem Information temporarily unavailable Parkinson's disease, unspecified whether dyskinesia present, unspecified whether manifestations fluctuate (G20.A1) Active confirmed Problem Information temporarily unavailable Parkinsonism, unspecified Parkinsonism type (G20.C) Active confirmed Problem Information temporarily unavailable Amputation of right lower extremity below knee upon examination (S88.111A) Active confirmed Problem Information temporarily unavailable Impaired ambulation (R26.2) Active confirmed Problem Information temporarily unavailable Diabetic peripheral vascular disease (E11.51) Active confirmed Vital Signs Heart Rate 70 /min 04/22/2025 Respiratory Rate 20 /min 06/11/2024 Blood pressure diastolic 68 mm Hg 04/22/2025 Height 66 in 04/22/2025 Blood pressure systolic 128 mm Hg 04/22/2025 Weight 208.8 lbs 04/22/2025 BMI 33.7 kg/m2 04/22/2025 Encounters Encounter Location Date Provider Diagnosis [address] [place], [place] [id number] 05/28/2024 Nat Nieves Lethargy R53.83 ; Hypoglycemia E16.2 and Depression [address] [facility] [address] [facility] [address] [place] [id number] 06/11/2024 Nat Nieves Cellulitis of right leg L03.115 ; Other specified diabetes mellitus with foot ulcer E13.621 ; Non-pressure chronic ulcer of other part of unspecified foot with unspecified severity L97.509 ; Gas gangrene A48.0 ; Parkinsonism, unspecified Parkinsonism type G20.C ; Other specified diabetes mellitus with other specified complication, unspecified whether alf insulin use E13.69 ; Venous insufficiency (chronic) (peripheral) I87.2 ; Localized edema R60.0 ; Osteomyelitis of right foot, unspecified type M86.9 ; Onychodystrophy L60.3 ; Hypokalemia E87.6 ; Essential hypertension I10 ; Hyperlipidemia, unspecified hyperlipidemia type E78.5 ; Depressive disorder F32.9 and Generalized anxiety disorder F41.1 [facility] [address] [facility] [address] [place] [id number] 08/08/2024 Ricky Mesilla Essential hypertensi on I10 [facility] [address] [facility] [address] [place] [id number] 08/26/2024 Ricky Mesilla Essential hypertensi on I10 [facility] [address] [facility] [address] [place] [id number] 03/24/2025 Ricky Mesilla Status post below-kn ee amputation of right lower extremity Z89.511 ; Type 2 diabetes mellitus with other specified complication E11.69 ; 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 (current) use of insulin Z79.4 ; Essential hypertension I10 ; Parkinson's disease, unspecified whether dyskinesia present, unspecified whether manifestations fluctuate G20.A1 ; Hyperlipidemia, unspecified hyperlipidemia type E78.5 ; Depressive disorder F32.9 and Diabetic peripheral vascular disease E11.51 [facility] [address] [place], [place] [id number] 04/15/2025 Nat Nieves Acute bronchitis J20 .9 [facility] [address] [place], [place] [id number] 04/22/2025 Ricky Mesilla Acute URI J06.9 [facility] [address] [place] [id number] 05/15/2024 Ricky Mesilla [facility] [address] [place] [id number] 05/23/2024 Ricky Mesilla [facility] [address] [place] [id number] 05/24/2024 Ricky Mesilla [facility] [address] [place] [id number] 05/24/2024 Ricky Mesilla [facility] [address] [place] [id number] 06/07/2024 Ricky Mesilla [facility] [address] [place] [id number] 06/17/2024 Ricky Mesilla [facility] [address] [place] [id number] 06/25/2024 Ricky Mesilla [facility] [address] [place] [id number] 07/17/2024 Ricky Mesilla [facility] [address] [place] [id number] 08/05/2024 Ricky Mesilla [facility] [address] [place] [id number] 08/07/2024 Ricky Mesilla [facility] [address] [place], [place] [id number] 08/13/2024 Ricky Mesilla [facility] [address] [place] [id number] 08/26/2024 Ricky Mesilla [facility] [address] [place] [id number] 08/27/2024 Ricky Mesilla [facility] [address] [place] [id number] 09/09/2024 Ricky Mesilla Essential hypertensi on I10 [facility] [address] [place] [id number] 09/13/2024 Ricky Mesilla [facility] [address] [place] [id number] 09/25/2024 Ricky Mesilla [facility] [address] [place] [id number] 10/18/2024 Ricky Mesilla [facility] [address] [place] [id number] 03/31/2025 Ricky Mesilla Encounter for screen ing for malignant neoplasm of breast Z12.31 ; Encounter for screening for osteoporosis Z13.820 and Menopause Z78.0 [facility] [address] [place] [id number] 04/01/2025 Ricky Mesilla Essential hypertensi on I10 [facility] [address] [place], [place] [id number] 04/04/2025 Ricky Mesilla Type 2 diabetes nicol itus with other specified complication E11.69 and Essential hypertension I10 Assessments Encounter Date Diagnosis (ICD Code) Assessment Notes Treatment Notes Treatment Clinical Notes Section Notes 05/28/2024 Hypoglycemia (ICD-10 - E16.2) was changed to SSI with BS AC and HS 05/28/2024 Lethargy (ICD-10 - R53.83) will decrease Caplyta to 21mg from 42mg and continue to asses mental status/depressi on 06/11/2024 Cellulitis of right leg (ICD-10 - L03.115) 08/26/2024 Essential hypertension (ICD-10 - I10) 09/09/2024 Essential hypertension (ICD-10 - I10) 03/24/2025 Type 2 diabetes mellitus with other specified complication (ICD-10 - E11.69) 03/24/2025 Status post below-knee amputation of right lower extremity (ICD-10 - Z89.511) Notes from [facility] admission reviewed in office today 03/31/2025 Encounter for screening for osteoporosis (ICD-10 - Z13.820) 03/31/2025 Encounter for screening for malignant neoplasm of breast (ICD-10 - Z12.31) 04/04/2025 Type 2 diabetes mellitus with other specified complication (ICD-10 - E11.69) 04/15/2025 Acute bronchitis (ICD-10 - J20.9) fluids, rest, supportive measures for fever/symptom relief 04/22/2025 Acute URI (ICD-10 - J06.9) 04/01/2025 Essential hypertension (ICD-10 - I10) 08/08/2024 Essential hypertension (ICD-10 - I10) 04/04/2025 Essential hypertension (ICD-10 - I10) 03/31/2025 Menopause (ICD-10 - Z78.0) 03/24/2025 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 (current) use of insulin (ICD-10 - Z79.4) 05/28/2024 Depression (ICD-10 - 311) continue with Caplyta at a lower dose due to lethargy 06/11/2024 Other specified diabetes mellitus with foot ulcer (ICD-10 - E13.621) 03/24/2025 Essential hypertension (ICD-10 - I10) 06/11/2024 Non-pressure chronic ulcer of other part of unspecified foot with unspecified severity (ICD-10 - L97.509) 03/24/2025 Parkinson's disease, unspecified whether dyskinesia present, unspecified whether manifestations fluctuate (ICD-10 - G20.A1) 06/11/2024 Gas gangrene (ICD-10 - A48.0) 03/24/2025 Hyperlipidemia, unspecified hyperlipidemia type (ICD-10 - E78.5) 06/11/2024 Parkinsonism, unspecified Parkinsonism type (ICD-10 - G20.C) 06/11/2024 Other specified diabetes mellitus with other specified complication, unspecified whether terminal operations supervisor insulin use (ICD-10 - E13.69) 03/24/2025 Depressive disorder (ICD-10 - F32.9) 03/24/2025 Diabetic peripheral vascular disease (ICD-10 - E11.51) 06/11/2024 Venous insufficiency (chronic) (peripheral) (ICD-10 - [...] 06/11/2024 Generalized anxiety disorder (ICD-10 - F41.1) 09/26/2024 Other Discharge summary with available lab/diagnostic imaging results obtained and reviewed. Discharge medication list reconciled. Appropriate counseling provided. Moderate Complexity Plan Of Treatment Pending Test Test Name Order Date Bone density 03/31/2025 Mammogram 03/31/2025 Next Appt Details Provider Name:Ricky Chaudhary ry, 06/23/2025 11:00:00 AM, [address], [place], [place], [id number], Insurance Providers Payer Name Payer Address Payer Phone Subscriber Number Group Number Insured Name Patient Relationship to Insured Coverage Start Date Coverage End Date MEDICARE PART B [address] [address] [place] [address] [id number] LILY BRIDGES Self - patient is the insured [facility] [address] [place] [address] [id number] LILY BRIDGES Self - patient is the insured Medications Administered Medication Instructions Date of Administration Dosage Notes -01/22/2021 1 mL B-02/19/2021 1 mL Medical (General) History Medical History History ICD Code Type 2 Diabetes, [facility] Hyperlipidemia Hypertension Hypertriglyceridemia LT Leg Venous Stasis Depression Declared Disabled, 2011 LT Foot Extensive Celluitis, [facility] tist 2013 LT Breast Cancer, s/p Lumpectomy- Radiat ion, 2013 DKA and multi Drug Resisitant E.Coli UTI , 08/2014 LT Carpal Tunnel Syndrome, s/p Surgery 2 016 right foot ucer with gas gangrene and os teomyelitis obesity Parkinson Disease Right BKA 2024 Surgical History Surgery Date(Month/Year) LT Leg Skin Grafts Carpal Tunnel Release 07/2015 Cholecystectomy 08/16/2016 Foot surgery -right foot I&D with wide excision/debridement of non viable oft tissue and bone; right partial 4-5th ray amputation/resection/ Dr. Smith at [facility] 05/15/2024 right BKA - done at 2024 Hospitalization History Reason Date(Month/Year) [facility] with T2DM, diabetic foor ulcer; cellulitis RLE; gangrene RLE; osteomyelitis; venous insuffciency; parkinson disease; falls at home ; UTI; morbid obesity; onychodystrophy; nail dystrophy; hypokalemia 05/13-05/20/2024 Cellulitis- [facility] 01/07-06/2019 MKA- [facility] 10/09- Gallbladder Attack - [facility] 08/16- Dehydration, UTI, DKA- [facility] 08/2014 Congestion- [facility] ER 07/2010
--- NOTE | 2025-04-25 10:45 | US_ITS ---
FINAL REPORT CLINICAL HISTORY: Symptoms and Signs involving Circulatory Systems. Patient has right AKA. Only left leg was studied today. Charcot in right lower extremity, previous smoker, HTN, DM, HLD, left leg pain at rest, left claudication. FINDINGS: LOWER EXTREMITY SEGMENTAL PRESSURE MEASUREMENTS LEFT LOWER EXTREMITY: Lower thigh: 1.04 Calf: AND SEE Ankle, posterior tibial artery: 1.10 Ankle, dorsalis pedis: 1.06 Toe: 1.04 IMPRESSION: Normal pressure indices in the left lower extremity. Reviewed, Interpreted and Dictated by Clifton Rodriguez MD Transcribed by Katlyn Hernandez Authenticated and . [facility]
--- OUTSIDE RECORDS SUMMARY | 2025-05-16 20:00 | XMS_ITS | Clinical Summary ---
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, R LOW LEG, SUBS Active 03-07 00:00: 00 TYPE 2 DIABETES MELLITUS WITH DIABETIC NEUROPATHY, UNSP Active 03-07 00:00: 00 PARKINSON'S DIS WITH DYSKINESIA, W/O MENTION OF FLUCTUATIONS Active 03-07 00:00: 00 MUSCLE WASTING AND ATROPHY, NEC, UNSP SITE Active 02-13 00:00: 00 MUSCLE WEAKNESS (GENERALIZED ) Active 02-13 00:00: 00 TYPE 2 DIABETES W DIABETIC PERIPHERAL ANGIOPATH W/O GANGRENE Active 07-03 00:00: 00 ESSENTIAL (PRIMARY) HYPERTENSION Active 07-03 00:00: 00 MAJOR DEPRESSIVE DISORDER, RECURRENT, UNSPECIFIED Active 07-03 00:00: 00 PRIMARY GENERALIZED (OSTEO)ARTHR ITIS Active 07-03 00:00: 00 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, UNSPECIFIED Active 07-03 00:00: 00 HYPERLIPIDEM IA, UNSPECIFIED Active 07-03 00:00: 00 Obesity, class 2 Active 07-03 00:00: 00 ACQUIRED ABSENCE OF RIGHT LEG BELOW KNEE Active 03-07 00:00: 00 SENIOR LIVING (CURRENT) USE OF INSULIN Active 07-03 00:00: 00 SENIOR LIVING (CURRENT) USE OF ORAL HYPOGLYCEMIC DRUGS Active 07-03 00:00: 00 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 Ordering Clinician Indication Dosage Frequency Signature (SIG) Comments Components nystatin 100,000 unit/gram topical powder 03-07 00:00: 00 03-19 00:00 :00 No [id number] Per instruc tions Per instructio ns (route: topical) Med Classific ation: Dermatolo gical meloxicam 7.5 mg tablet 03-06 00:00: 00 Yes [id number] ARTHRITIS 1 tablet DAILY 1 tablet DAILY (route: oral) Med Classific ation: Analgesic , Anti-infl ammatory or Antipyret ic melatonin 5 mg tablet 02-28 00:00: 00 03-19 00:00 :00 No [id number] Per instruc tions Per instructio ns (route: oral) Med Classific ation: Central Nervous System Agents Double Antibiotic (bacitrcn zn) 500 unit-10,000 unit/gram top ointment -16 00:00: 00 03-19 00:00 :00 No [id number] Per instruc tions Per instructio ns (route: topical) Med Classific ation: Dermatolo gical duloxetine 60 mg capsule,del ayed release -15 00:00: 00 Yes [id number] MOOD 1 capsule DAILY 1 capsule DAILY (route: oral) Med Classific ation: Central Nervous System Agents aspirin 81 mg chewable tablet 8-11 00:00: 00 Yes [id number] HEART 1 tablet DAILY 1 tablet DAILY (route: oral) Med Classific ation: Hematolog ical Agents Oyster Shell Calcium-Vit saucedo D3 500 mg-5 mcg (200 unit) tablet 02-09 00:00: 00 03-19 00:00 :00 No [id number] Per instruc tions Per instructio ns (route: oral) Med Classific ation: Electroly te Balance-N utritiona l Products atorvastati n 20 mg tablet 03-19 00:00: 00 Yes [id number] CHOLESTEROL 1 tablet BEDTIME 1 tablet BEDTIME (route: oral) Med Classific ation: Cardiovas cular Therapy Agents carbidopa 25 mg-levodopa 100 mg tablet 03-19 00:00: 00 Yes [id number] PARKINSON'S 6 tablet EVERY 3 HOURS 6 tablet EVERY 3 HOURS (route: oral) Med Classific ation: Central Nervous System Agents Depakote 250 mg tablet,winston yed release 03-19 00:00: 00 Yes [id number] SEIZURES 1 tablet 3 TIMES DAILY 1 tablet 3 TIMES DAILY (route: oral) Med Classific ation: Central Nervous System Agents duloxetine 30 mg capsule,del ayed release 03-19 00:00: 00 Yes [id number] MOOD 1 capsule DAILY 1 capsule DAILY (route: oral) Med Classific ation: Central Nervous System Agents Farxiga 5 mg tablet 03-19 00:00: 00 Yes [id number] DIABETES 1 tablet DAILY 1 tablet DAILY (route: oral) Med Classific ation: Endocrine fenofibrate nanocrystal lized 145 mg tablet 03-19 00:00: 00 Yes [id number] CHOLESTEROL 1 tablet DAILY 1 tablet DAILY (route: oral) Med Classific ation: Cardiovas cular Therapy Agents fluoxetine 60 mg tablet 03-19 00:00: 00 Yes [id number] MOOD 1 tablet DAILY 1 tablet DAILY (route: oral) Med Classific ation: Central Nervous System Agents gabapentin 300 mg capsule 03-19 00:00: 00 Yes [id number] NERVE PAIN 1 capsule 3 TIMES DAILY 1 capsule 3 TIMES DAILY (route: oral) Med Classific ation: Central Nervous System Agents Lantus Solostar U-100 Insulin 100 unit/mL (3 mL) subcutaneou s pen 03-19 00:00: 00 Yes [id number] DIABETES 30 unit 2 TIMES DAILY 30 unit 2 TIMES DAILY ([facility] Med Classific ation: Endocrine lisinopril 20 mg tablet 03-20 00:00: 00 Yes [id number] BLOOD PRESSURE 2 tablet DAILY 2 tablet DAILY (route: oral) Med Classific ation: Cardiovas cular Therapy Agents metformin 500 mg tablet 03-19 00:00: 00 Yes [id number] DIABETES 2 tablet 2 TIMES DAILY 2 tablet 2 TIMES DAILY (route: oral) Med Classific ation: Endocrine metoprolol succinate ER 100 mg tablet,exte nded release 24 hr 03-19 00:00: 00 Yes [id number] HEART 1 tablet DAILY 1 tablet DAILY (route: oral) Med Classific ation: Cardiovas cular Therapy Agents Novolog Mix 70-30 FlexPen U-100 Insulin 100 unit/[facility] 03-19 00:00: 00 Yes [id number] DIABETES Per instruc tions DIRECTED Per instructio ns DIRECTED (route: [facility]) Med Classific ation: Endocrine Rybelsus 7 mg tablet 03-19 00:00: 00 Yes [id number] DIABETES 1 tablet DAILY 1 tablet DAILY (route: oral) Med Classific ation: Endocrine Xarelto 2.5 mg tablet 03-19 00:00: 00 Yes [id number] HEART 1 tablet 2 TIMES DAILY 1 tablet 2 TIMES DAILY (route: oral) Med Classific ation: Hematolog ical Agents albuterol sulfate HFA 90 mcg/actuati on aerosol inhaler 2024-07 00:00: 00 Yes [id number] SHORTNESS OF BREATH 2 puff 3 TIMES DAILY 2 puff 3 TIMES DAILY (route: inhalation ) Med Classific ation: Respirato ry Therapy Agents Vital Signs Vital Name Observation Time Observation Value Commen ts Temperature 2025-04-22 15:08:00.000 97.6 [degF] Temperature 2025-04-16 12:29:00.000 97.6 [degF] Temperature 2025-04-11 15:31:00.000 98.9 [degF] Temperature 2025-04-08 12:34:00.000 98.6 [degF] Temperature 2025-04-01 14:13:00.000 97.6 [degF] Temperature 2025-03-21 16:14:00.000 97.7 [degF] Temperature 2025-03-19 13:29:00.000 98.9 [degF] BMI (%) 2025-03-19 13:23:03.000 39 kg/m2 Height 2025-03-19 13:22:10.000 66 [in_us] Pulse 2025-04-22 15:08:00.000 78 /min Pulse 2025-04-17 11:32:00.000 66 /min Pulse 2025-04-16 12:29:00.000 70 /min Pulse 2025-04-11 15:31:00.000 71 /min Pulse 2025-04-10 13:34:00.000 75 /min Pulse 2025-04-08 12:34:00.000 62 /min Pulse 2025-04-01 14:13:00.000 72 /min Pulse 2025-03-31 14:09:00.000 74 /min Pulse 2025-03-25 13:11:00.000 76 /min Pulse 2025-03-21 16:14:00.000 63 /min Pulse 2025-03-19 13:29:00.000 61 /min O2 Saturation (%) 2025-04-17 11:32:00.000 100 % O2 Saturation (%) 2025-04-16 12:29:00.000 97 % O2 Saturation (%) 2025-04-10 13:34:00.000 98 % O2 Saturation (%) 2025-03-31 14:09:00.000 94 % O2 Saturation (%) 2025-03-25 13:11:00.000 100 % O2 Saturation (%) 2025-03-19 13:29:00.000 100 % Respirations 2025-04-22 15:08:00.000 18 /min Respirations 2025-04-17 11:32:00.000 18 /min Respirations 2025-04-16 12:29:00.000 18 /min Respirations 2025-04-11 15:31:00.000 18 /min Respirations 2025-04-10 13:34:00.000 18 /min Respirations 2025-04-08 12:34:00.000 18 /min Respirations 2025-04-01 14:13:00.000 18 /min Respirations 2025-03-31 14:09:00.000 17 /min Respirations 2025-03-25 13:11:00.000 18 /min Respirations 2025-03-21 16:14:00.000 18 /min Respirations 2025-03-19 13:29:00.000 18 /min Weight (lbs) 2025-03-19 13:23:03.000 246 [lb_av] Systolic Blood Pressure 2025-04-22 15:08:00.000 115 mm [Hg] Systolic Blood Pressure 2025-04-17 11:32:00.000 140 mm [Hg] Systolic Blood Pressure 2025-04-16 12:29:00.000 124 mm [Hg] Systolic Blood Pressure 2025-04-11 15:31:00.000 134 mm [Hg] Systolic Blood Pressure 2025-04-10 13:34:00.000 130 mm [Hg] Systolic Blood Pressure 2025-04-08 12:34:00.000 126 mm [Hg] Systolic Blood Pressure 2025-04-01 14:13:00.000 121 mm [Hg] Systolic Blood Pressure 2025-03-31 14:09:00.000 160 mm [Hg] Systolic Blood Pressure 2025-03-25 13:11:00.000 120 mm [Hg] Systolic Blood Pressure 2025-03-21 16:14:00.000 118 mm [Hg] Systolic Blood Pressure 2025-03-19 13:29:00.000 132 mm [Hg] Diastolic Blood Pressure 2025-04-22 15:08:00.000 70 mm [Hg] Diastolic Blood Pressure 2025-04-17 11:32:00.000 73 mm [Hg] Diastolic Blood Pressure 2025-04-16 12:29:00.000 70 mm [Hg] Diastolic Blood Pressure 2025-04-11 15:31:00.000 70 mm [Hg] Diastolic Blood Pressure 2025-04-10 13:34:00.000 68 mm [Hg] Diastolic Blood Pressure 2025-04-08 12:34:00.000 65 mm [Hg] Diastolic Blood Pressure 2025-04-01 14:13:00.000 63 mm [Hg] Diastolic Blood Pressure 2025-03-31 14:09:00.000 50 mm [Hg] Diastolic Blood Pressure 2025-03-25 13:11:00.000 66 mm [Hg] Diastolic Blood Pressure 2025-03-21 16:14:00.000 60 mm [Hg] Diastolic Blood Pressure 2025-03-19 13:29:00.000 64 mm [Hg] Plan of Treatment Planned Activity Planned Date Details Comments Future Scheduled Test AGENCY MAY PERFORM A RESUMPTION OF CARE VISIT FOLLOWING ANY HOSPITAL ADMISSION. PT TO EVALUATE, OBSERVE / ASSESS, AND MONITOR, SYS DIR TO OBSERVE AND MONITOR, PROVIDE SKILLED THERAPEUTIC INTERVENTION, ACTIVITY, EDUCATION, AND TRAINING TO ADDRESS; [code = AGENCY MAY PERFORM A RESUMPTION OF CARE VISIT FOLLOWING ANY HOSPITAL ADMISSION. PT TO EVALUATE, OBSERVE / ASSESS, AND MONITOR, SYS DIR TO OBSERVE AND MONITOR, PROVIDE SKILLED THERAPEUTIC INTERVENTION, ACTIVITY, EDUCATION, AND TRAINING TO ADDRESS;] Future Scheduled Test SIT TO/FRO M STAND TRANSFERS (PT/SYS DIR) [code = SIT TO/FROM STAND TRANSFERS (PT/SYS DIR)] Future Scheduled Test PT/SYS DIR TO PROVIDE GAIT TRAINING FOR IMPROVED MOBILITY AND /OR TO NORMALIZE GAIT PATTERN [code = PT/SYS DIR TO PROVIDE GAIT TRAINING FOR IMPROVED MOBILITY AND /OR TO NORMALIZE GAIT PATTERN] Future Scheduled Test THERAPEUTI C EXERCISES AND ESTABLISHING A HOME EXERCISE PROGRAM (PT/SYS DIR) [code = THERAPEUTIC EXERCISES AND ESTABLISHING A HOME EXERCISE PROGRAM (PT/SYS DIR)] Future Scheduled Test PT/SYS DIR TO IDENTIFY FALL RISK FACTORS; EDUCATE THE PATIENT/CAREGIVER ON WAYS TO REDUCE FALL RISK FACTORS AND ESTABLISH HOME EXERCISE PROGRAM TO MINIMIZE FALL RISK. MAY TEACH THE PATIENT FLOOR RECOVERY WHEN CLINICALLY APPROPRIATE [code = PT/SYS DIR TO IDENTIFY FALL RISK FACTORS; EDUCATE THE PATIENT/CAREGIVER ON WAYS TO REDUCE FALL RISK FACTORS AND ESTABLISH HOME EXERCISE PROGRAM TO MINIMIZE FALL RISK. MAY TEACH THE PATIENT FLOOR RECOVERY WHEN CLINICALLY APPROPRIATE] Future Scheduled Test PT / SYS DIR T O INSTRUCT PATIENT/CAREGIVER ON RISK FOR HOSPITALIZATION/EMERGENCY ROOM VISITS, TEACH SIGNS AND SYMPTOMS THAT PUT PATIENT AT RISK, WHEN TO NOTIFY NURSE/PHYSICIAN OF COMPLICATIONS/DECLINE, AND WHEN TO CALL 911. [code = PT / SYS DIR TO INSTRUCT PATIENT/CAREGIVER ON RISK FOR HOSPITALIZATION/EMERGENCY ROOM VISITS, TEACH SIGNS AND SYMPTOMS THAT PUT PATIENT AT RISK, WHEN TO NOTIFY NURSE/PHYSICIAN OF COMPLICATIONS/DECLINE, AND WHEN TO CALL 911.] Future Scheduled Test PT / SYS DIR T O MONITOR AND EDUCATE ON OXYGEN SATURATION DURING ADLS/IADLS, NOTIFY PHYSICIAN AND/OR THE RN CLINICAL MANAGER COUNCIL FOR PHYSICIAN NOTIFICATION AND IF O2 SATS BELOW PHYSICIAN ORDERED PARAMETERS AFTER 10 MIN OF REST [code = PT / SYS DIR TO MONITOR AND EDUCATE ON OXYGEN SATURATION DURING ADLS/IADLS, NOTIFY PHYSICIAN AND/OR THE RN CLINICAL MANAGER COUNCIL FOR PHYSICIAN NOTIFICATION AND IF O2 SATS BELOW PHYSICIAN ORDERED PARAMETERS AFTER 10 MIN OF REST] Future Scheduled Test SKILLED NU RSING TO EVALUATE FOR MEDICATION AND PATHOLOGY MANAGEMENT [code = [facility] TO EVALUATE FOR MEDICATION AND PATHOLOGY MANAGEMENT] Future Scheduled Test NEUROMUSCU LAR RE-EDUCATION / BALANCE / POSTURAL CONTROL (PT) [code = NEUROMUSCULAR RE-EDUCATION / BALANCE / POSTURAL CONTROL (PT)] Future Scheduled Test SN INITIAL EVALUATION IS PERFORMED AND NO ADDITIONAL SN VISITS ARE REQUIRED. [code = SN INITIAL EVALUATION IS PERFORMED AND NO ADDITIONAL SN VISITS ARE REQUIRED.] Future Scheduled Test AGENCY MAY PERFORM A RESUMPTION OF CARE VISIT FOLLOWING ANY HOSPITAL ADMISSION. OT TO EVALUATE, OBSERVE / ASSESS, AND MONITOR, BRITTANY TO OBSERVE AND MONITOR, PROVIDE SKILLED THERAPEUTIC INTERVENTION, ACTIVITY, EDUCATION, AND TRAINING TO ADDRESS;FUNCTIONAL TRANSFERS, SELF CARE PERFORMANCE, HOME EQUIPME NT RECOMMENDATIONS BATHING/SHOWERING (OT/BRITTANY) ACTIVITIES OF DAILY LIVING (OT/BRITTANY) TOILET TRANSFER (OT/SHOE ASSOCIATE) BATH/SHOWER TRANSFER (OT/SHOE ASSOCIATE) OT / SHOE ASSOCIATE TO EDUCATE ON DIABETES SELF- MANAGEMENT OT / BRITTANY TO IDENTIFY FALL RISK FACTORS; EDUCATE THE PATIENT/CAREGIVER ON WAYS TO REDUCE FALL RISK FACTORS AND ESTABLISH HOME EXERCISE PROGRAM TO MINIMIZE FALL RISK. MAY TEACH THE PATIENT FLOOR RECOVERY WHEN CLINICALLY APPROPRIATE. [code = AGENCY MAY PERFORM A RESUMPTION OF CARE VISIT FOLLOWING ANY HOSPITAL ADMISSION. OT TO EVALUATE, OBSERVE / ASSESS, AND MONITOR, BRITTANY TO OBSERVE AND MONITOR, PROVIDE SKILLED THERAPEUTIC INTERVENTION, ACTIVITY, EDUCATION, AND TRAINING TO ADDRESS;FUNCTIONAL TRANSFERS, SELF CARE PERFORMANCE, HOME EQUIPME NT RECOMMENDATIONS BATHING/SHOWERING (OT/SHOE ASSOCIATE) ACTIVITIES OF DAILY LIVING (OT/SHOE ASSOCIATE) TOILET TRANSFER (OT/BRITTANY) BATH/SHOWER TRANSFER (OT/SHOE ASSOCIATE) OT / BRITTANY TO EDUCATE ON DIABETES SELF- MANAGEMENT OT / BRITTANY TO IDENTIFY FALL RISK FACTORS; EDUCATE THE PATIENT/CAREGIVER ON WAYS TO REDUCE FALL RISK FACTORS AND ESTABLISH HOME EXERCISE PROGRAM TO MINIMIZE FALL RISK. MAY TEACH THE PATIENT FLOOR RECOVERY WHEN CLINICALLY APPROPRIATE.] Goal Patient Goal - I NDEPENDENCE WITH FUNCTIONAL ACTIVITIES Goal Provider Goal - Goal Provider Goal - PT STG: PATIENT WILL DEMONSTRATE IMPROVED ABILITY TO PERFORM SIT TO/FROM STAND TRANSFERS TO REDUCE THE RISK OF SKIN BREAKDOWN AND REDUCE FALL RISK FROM CGA TO IND WITHIN 8 WEEKS Goal Provider Goal - PT STG: PATIENT WILL DEMONSTRATE IMPROVED 6 MINUTE WALK TEST AMBULATION FROM 50 FT MIN TO 150 FT SBA WITH APPROPRIATE AD WITHIN 4 WEEKS. PT LTG: PATIENT WILL DEMONSTRATE IMPROVED 6 MINUTE WALK TEST AMBULATION FROM 50 FT MIN TO 300 FT IND WITH APPROPRIATE AD WITHIN 8 WEEKS. Goal Provider Goal - PT STG: PATIENT WILL DEMONSTRATE IMPROVED FUNCTIONAL STRENGTH EVIDENCED BY FIVE TIMES SIT TO STAND TEST (CUT SCORE >12 SECONDS INDICATES AN INCREASED FALL RISK) IMPROVING FROM 35 SECONDS TO LESS THAN OR EQUAL TO 29 SECONDS WITHIN 4 WEEKS IN ORDER TO DECREASE FALL RISK PT LTG: PATIENT WILL DEMONSTRATE IMPROVED FUNCTIONAL STRENGTH EVIDENCED BY FIVE TIMES SIT TO STAND TEST (CUT SCORE >12 SECONDS INDICATES AN INCREASED FALL RISK) IMPROVING FROM 35 SECONDS TO LESS THAN OR EQUAL TO 12 SECONDS WITHIN 8 WEEKS IN ORDER TO DECREASE FALL RISK PT LTG: PATIENT WILL DEMONSTRATE INDEPENDENCE AND COMPLIANCE WITH HEP WITHIN 4 WEEKS Goal Provider Goal - PT LTG: PATIENT/CAREGIVER WILL DEMONSTRATE ADHERENCE TO FALL REDUCTION SELF-MANAGEMENT AND REDUCING FALL RISK FACTORS TO MINIMIZE FALL RISK BY END OF EPISODE. Goal Provider Goal - PT GOAL: PATIENT/CAREGIVER WILL VERBALIZE UNDERSTANDING OF SIGNS AND SYMPTOMS THAT PUT THE PATIENT AT RISK FOR HOSPITALIZATION /EMERGENCY ROOM VISITS, WHEN TO NOTIFY NURSE/PHYSICIAN OF COMPLICATIONS/DECLINE AND WHEN TO CALL 911. Goal Provider Goal - PT LTG: PATIENT WILL MAINTAIN OXYGEN SATURATION WITHIN PHYSICIAN ORDERED PARAMETERS THROUGHOUT EPISODE OF CARE. Goal Provider Goal - Goal Provider Goal - PT LTG: PATIENT WILL DEMONSTRATE REDUCED FALL RISK EVIDENCED BY TUG TEST (CUT SCORE >11 SECONDS INDICATES INCREASED FALL RISK) IMPROVING FROM UNABLE TO LESS THAN OR EQUAL TO 20 SECONDS WITHIN 8 WEEKS Goal Provider Goal - Goal Provider Goal - OT STG: PATIENT WILL DEMONSTRATE IMPROVED ABILITY TO PERFORM BATHING/SHOWERING AND REDUCE CAREGIVER BURDEN FROM MINIMAL A TO SBA WITHIN 6 WEEKS OT LTG: PATIENT WILL DEMONSTRATE IMPROVED ABILITY TO PERFORM BATHING/SHOWERING AND REDUCE CAREGIVER BURDEN FROM MINIMAL A TO INDEPENDENT WITHIN 8 WEEKS OT LTG: PATIENT WILL DEMONSTRATE IMPROVEMENT IN MODIFIED FABIENNE INDEX SCORE FROM 76 TO 90 INDICATING DECREASED DEPENDENCY ON CAREGIVER ASSISTANCE WITH ACTIVITIES OF DAILY LIVING WITHIN 8 WEEKS OT LTG: PATIENT WILL DEMONSTRATE IMPROVED ABILITY TO PERFORM TOILET TRANSFERS TO REDUCE FALL RISK AND RISK OF INCONTINENCE AND UTI DEVELOPMENT FROM CGA TO INDEPENDENT WITHIN 4 WEEKS OT STG: PATIENT WILL DEMONSTRATE IMPROVED ABILITY AND SAFETY TO PERFORM TUB TRANSFER FROM MODERATE A TO CGA WITHIN 6 WEEKS OT LTG: PATIENT WILL DEMONSTRATE IMPROVED ABILITY AND SAFETY TO PERFORM TUB TRANSFER FROM MODERATE A TO INDEPENDENT WITHIN 8 WEEKS OT GOAL: PATIENT/CAREGIVER WILL BE ABLE TO IDENTIFY SIGNS OF HYPER- AND HYPOGLYCEMIA AND VERBALIZE HOW TO MANAGE SYMPTOMS. OT LTG: PATIENT/CAREGIVER WILL BE ABLE TO IMPLEMENT RECOMMENDATIONS SPECIFIC TO FALL REDUCTION FOR IMPROVED ADL/IADL COMPLETION AND HOME SAFETY BY END OF EPISODE. Encounters Start Date/Time End Date/Time Encounter Type Admission Type Attending [facility] Department Encounter ID Discharge Date Discharge Status Discharge Condition Discharge Reason Percent Goals Met 2025-03-19 00:00:00 2025-05-17 00:00:00 Outpatient NEW ADMISSION MYLA NIELSEN [facility] [id number] 48.00
== END 2025-04-25 23:59 | disposition home or self-care (01) ==
LOC: RT 10:01
PROVIDERS: PCP Family Medicine; Visit Provider Nurse Practitioner
DX: I73.9 Peripheral vascular disease, unspecified (principal); M79.605 Pain in left leg; E11.610 Type 2 diabetes mellitus with diabetic neuropathic arthropathy; I10 Essential (primary) hypertension; E78.5 Hyperlipidemia, unspecified; R09.89 Other specified symptoms and signs involving the circulatory and respiratory systems; Z87.891 Personal history of nicotine dependence; Z89.611 Acquired absence of right leg above knee
CPT/HCPCS: 93923

== ENCOUNTER 2025-05-19 12:36 | Outpatient (CLI) | payer MEDICARE, OTHER, SELFPAY ==
--- NOTE | 2025-05-19 12:37 | XR_ITS ---
FINAL REPORT CLINICAL HISTORY: SCREENING COMPARISON: None FINDINGS: Using L1-4, the bone mineral density of the spine is 1.534 g/cm2, corresponding to T-score of 4.4. Using the left hip, the bone mineral density of the femoral neck is 0.988 g/cm2, corresponding to a T-score of 0.4. Using the right hip, the bone mineral density of the femoral neck is 1.061 g/cm2, corresponding to a T-score of 1.0. NOTE: T-score: Standard deviation compared with peak bone mass of young adult mean. *Following the recommendations of the International Society of Bone densitometry, classification of hip BMD is based on the lower of two T-scores; total hip or femoral neck. IMPRESSION: Normal bone mineral density of the lumbar spine and bilateral hips. Reviewed, Interpreted and Dictated by Manolo Grullon MD Transcribed by Marva Gregory Authenticated and [facility]
--- NOTE | 2025-05-19 12:37 | MM_ITS ---
PROCEDURE INFORMATION: Exam: MG Bilateral Screening 3D Mammography Exam date and time: 05/19/2025 1:02 PM Age: 65 years old Clinical indication: Screening examination; Personal history of left breast cancer; Radiation therapy TECHNIQUE: Imaging protocol: Bilateral Screening tomosynthesis and 2D mammography including computer-aided detection (CAD) when performed. COMPARISON: 1. MG MAMMOGRAPHY BREAST SCREENING TOMOSYNTHESIS BILATERAL 06/27/2023 10:10 AM 2. MG MAMMOGRAPHY BREAST SCREENING TOMOSYNTHESIS BILATERAL 06/14/2022 11:42 AM FINDINGS: MAMMOGRAPHY: Breast composition: There are scattered areas of fibroglandular density. Mass: None. Architectural distortion: Normal postlumpectomy changes are seen on the left including post surgical distortion, benign-type calcifications, parenchymal density, and skin thickening. Calcifications: No suspicious calcifications. Asymmetric density: None. Skin thickening: None. Axillary adenopathy: None. IMPRESSION: No mammographic evidence of malignancy. Annual screening is recommended unless otherwise clinically indicated. ASSESSMENT: BI-RADS Category 2: Benign.
== END 2025-05-19 23:59 | disposition home or self-care (01) ==
LOC: RAD 12:36
PROVIDERS: PCP Family Medicine; Visit Provider Family Medicine
DX: Z12.31 Encounter for screening mammogram for malignant neoplasm of breast (principal); M81.0 Age-related osteoporosis without current pathological fracture; R92.323 Mammographic fibroglandular density, bilateral breasts; Z80.3 Family history of malignant neoplasm of breast; Z78.0 Asymptomatic menopausal state; Z98.890 Other specified postprocedural states
CPT/HCPCS: 77063; 77067; 77080

== ENCOUNTER 2025-05-21 14:32 | Outpatient (CLI) | payer MEDICARE, OTHER, SELFPAY ==
--- NOTE | 2025-05-21 14:35 | XR_ITS ---
FINAL REPORT CLINICAL HISTORY: Evaluation of Left Foot Degenerative Changes COMPARISON: 04/21/2025 FINDINGS: LEFT FOOT Three views demonstrate no acute fracture or dislocation. There are mild hypertrophic changes of the first MTP. No acute soft tissue abnormality is seen. There is a moderate hallux valgus deformity. There is a small plantar spur. IMPRESSION: Moderate hallux valgus deformity with hypertrophic changes of the first MTP. Reviewed, Interpreted and Dictated by Manolo Grullon MD Transcribed by Tosha Mason Authenticated and [facility]
--- OUTSIDE RECORDS SUMMARY | 2025-05-21 16:00 | XMS_ITS | Clinical Summary ---
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 Role Phone Sherwin Gusman MD [ [...] of foot, except toes DIABETIC FOOT ULCER 036837572 (SNOMED CT) 03/05 Inactive 03/05 Alize W Diabetic foot ulcer MRSA INFECTION 768476436 (SNOMED CT) 03/05 Inactive 03/05 Alize W Methicillin resistant Staphylococcus aureus infection PEDAL EDEMA 217055640 (SNOMED CT) 09/09 Inactive 09/09 Alize W Edema DM TYPE I E10.9 (ICD-10-CM ) 09/09 Active 09/09 Lidya Carrillo Type 1 diabetes mellitus without complications Diabetes with neurological manifestation s, type I, uncontrolled 001965258 (SNOMED CT) 03/05 Inactive 03/05 Lidya Carrillo 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 Diabetes with other specified manifestation s, type I, uncontrolled 884496961 (SNOMED CT) 03/05 Inactive 03/05 Lidya Gerardo Disorder due to type 1 diabetes mellitus Elevated C-reactive protein (CRP) R79.82 (ICD-10-CM ) 03/09 Inactive 03/10 Lidya Carrillo Elevated C-reactive protein (CRP) MDR Z16.24 (ICD-10-CM ) 03/06 Inactive 03/10 Lidya Carrillo Resistance to multiple antibiotics 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 (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 ) 03/06 Inactive 03/10 Lidya Carrillo Other staphylococcus as the cause of diseases classified elsewhere PEDAL EDEMA 990435780 (SNOMED CT) 09/09 Removed 09/09 Lidya Carrillo Edema LLE CELLULITIS 682.6 (ICD-9-CM) 09/08 Active 09/09sa W Cellulitis and abscess of leg, except foot VENOUS STASIS 06597763 (SNOMED CT) Active W Venous stasis Elevated C-reactive protein (CRP) R79.82 (ICD-10-CM ) 03/09 Removed 03/10 W Elevated C-reactive protein (CRP) Diabetes with neurological manifestation s, type I, uncontrolled 518180809 (SNOMED CT) 03/05 Removed 03/05 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 MDR Z16.24 (ICD-10-CM ) 03/06 Removed 03/10 W Resistance to multiple antibiotics 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 (ICD-10-CM ) 03/06 Removed 03/10 W Other staphylococcus as the cause of diseases classified elsewhere Diabetes with other specified manifestation s, type I, uncontrolled 158562221 (SNOMED CT) 03/05 Removed 03/05sa W Disorder due to type 1 diabetes mellitus DIABETIC ULCER, LEFT 2ND TOE 64161989 (SNOMED CT) 03/05 Inactive 03/05 W Ulcer of foot Problem excluded fro m report: Morbid obesity 985994478 (SNOMED CT) 03/06 Active 03/06 Alize W Morbid obesity Obesity 677260519 (SNOMED CT) 03/06 Inactive 03/06 Sherwin Gusman MD Obesity DIABETIC ULCER, LEFT 2ND TOE 90675405 (SNOMED CT) 03/05 Removed 03/05 Lidya Carrillo Ulcer of foot DIABETIC FOOT ULCER 658209819 (SNOMED CT) 03/05 Removed 03/05 Lidya Carrillo [...] diabetes mellitus with diabetic polyneuropathy MRSA INFECTION 293785200 (SNOMED CT) 03/05 Removed 03/05 Lidya Carrillo Methicillin resistant Staphylococcus aureus infection DIABETIC FOOT INFECTION, LEFT 682.7 (ICD-9-CM) 03/05 Removed 03/05 Lidya Carrillo Cellulitis and abscess of foot, except toes Medications Medication Instructions Start Date Stop Date Generic Name NDC Provider BACTROBAN 2 % EXTERNAL CREAM Apply to affected area twice daily. MUPIROCIN CALCIUM [id number] Sherwin Gusman MD TRIAMCINOLONE ACETONIDE 0.1 % CREA Apply to affected area twice daily. TRIAMCINOLONE ACETONIDE 09087259589 Sherwin Gusman MD KEFLEX 500 MG ORAL CAPSULE Take one pill four times a day. CEPHALEXIN 25304865274 Sherwin Gusman MD ROCEPHIN SOLR 2gm IV q 24 [facility] CEFTRIAXONE SODIUM SOLR [id number] Sahra Price KEFLEX 500 MG ORAL CAPSULE take one by mouth four times a day x 2 weeks CEPHALEXIN 74482432832 Sherwin Gusman MD ACIDOPHILUS PROBIOTIC TABS LACTOBACILLUS 76922296730 Sherwin Gusman MD ROCEPHIN SOLR 2gm IV q 24 [facility] CEFTRIAXONE SODIUM SOLR [phone] Sahra [facility] VANCOMYCIN HCL SOLR 2.25gm IV daily [facility] [phone] VANCOMYCIN HCL SOLR [id number] Sahra [facility] GM INTRAVENOUS SOLUTION RECONSTITUTED 1gm IV daily [facility] ERTAPENEM SODIUM [phone] [facility] 1 GM INTRAVENOUS SOLUTION RECONSTITUTED 1gm IV daily [facility] ERTAPENEM SODIUM [phone] Sahra [facility] VANCOMYCIN HCL SOLR 2.25gm IV daily [facility] [phone] VANCOMYCIN HCL SOLR 65794267705 Sahra [facility] DULOXETINE HCL 60 MG CPEP DULOXETINE HCL 89890212610 Cindy A METOPROLOL TARTRATE 50 MG TABS METOPROLOL TARTRATE 82047658511 Cindy A CYMBALTA CAPSULE DELAYED RELEASE PARTICLES DULOXETINE HCL CPEP 76798974509 Cindy A LOPRESSOR TABS METOPROLOL TARTRATE TABS 71586029099 Cindy A TRILIPIX CPDR CHOLINE FENOFIBRATE CPDR 36025700398 Cindy A BACTRIM DS 800-160 MG TABS Take one pill twice a day. SULFAMETHOXAZOLE- TRIMETHOPRIM 47341388714 Cindy A TEFLARO 600 MG SOLR 600mg IV q 12hrs [facility] CEFTAROLINE FOSAMIL [phone] Sahra Price BACTRIM DS 800-160 MG TABS Take one pill twice a day. SULFAMETHOXAZOLE- TRIMETHOPRIM 18391050190 Sherwin Gusman MD NOVOLOG SOLUTION INSULIN ASPART SOLN 54969720433 Sherwin Gusman MD TEFLARO 600 MG SOLR 600mg IV q 12hrs [facility] CEFTAROLINE FOSAMIL [phone] Sahra Price CLEOCIN 300 MG CAPS CLINDAMYCIN HCL 10908270026 Sherwin Gusman MD CLEOCIN 300 MG CAPS CLINDAMYCIN HCL 41028000598 Sherwin Gusman MD VANCOMYCIN HCL SOLR Vancomycin 2GM IV Q24hrs/INPAT VANCOMYCIN HCL SOLR 07588438582 Shasta Schultz RN CLINDAMYCIN HCL 300 MG CAPS take one by mouth three times a day CLINDAMYCIN HCL 94288645753 Sherwin Gusman MD VANCOMYCIN HCL SOLR Vancomycin 2GM IV Q24hrs/INPAT VANCOMYCIN HCL SOLR 80886348251 Natalia Bolivar RN NOVOLOG 100 UNIT/ML SUBCUTANEOUS SOLUTION INSULIN ASPART 17049373544 Sherwin Gusman MD LANTUS 100 UNIT/ML SOLN INSULIN GLARGINE 39685113209 Sherwin Gusman MD METFORMIN HCL 500 MG TABS METFORMIN HCL 09336943268 Sherwin Gusman MD FENOFIBRATE CAPS FENOFIBRATE CAPS 46106742177 Sherwin Gusman MD HM VITAMIN D3 CAPSULE CHOLECALCIFEROL CAPS [id number] Minda Boone TRILIPIX CPDR CHOLINE FENOFIBRATE CPDR 88937184548 Minda Boone TRADJENTA TABS LINAGLIPTIN TABS 49163999913 Minda Boone NOVOLOG SOLUTION INSULIN ASPART SOLN 51890637734 Minda Boone CHOICEFUL MULTIVITAMIN CAPS MULTIPLE VITAMINS-MINERALS 11631284733 Minda Boone LOPRESSOR TABS METOPROLOL TARTRATE TABS 11810997244 Minda Boone LISINOPRIL TABS LISINOPRIL TABS 75320337914 Minda Boone INVOKANA TABLET CANAGLIFLOZIN TABS 06715140952 Minda Boone GABAPENTIN CAPS GABAPENTIN CAPS 93831651417 Minda Boone FLUOXETINE HCL CAPS FLUOXETINE HCL CAPS 96644047540 Minda Boone CVS FISH OIL CAPSULE OMEGA-3 FATTY ACIDS CAPS 09476768399 Minda Boone FENOFIBRATE CAPS FENOFIBRATE CAPS 49340085585 Minda Boone CYMBALTA CAPSULE DELAYED RELEASE PARTICLES DULOXETINE HCL CPEP 53958409676 Minda Boone CRESTOR TABLET ROSUVASTATIN CALCIUM TABS 73565948511 Minda Boone B COMPLEX CAPS B COMPLEX VITAMINS 10530997184 Minda Boone Medications Administered No information available. Allergies, Adverse Reactions, Alerts No information available. 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 Dietary management education, guidance, and counseling [...] Entry Date CPT-ca Continue IV antibiotics 2014 CPT-95995 PIV/Butterfly CPT-69732 Vancomycin Trough CPT-69610 BMP CPT-tess New IV antibiotic CPT-38935 CMP CPT-70767 CBC w/o Differential CPT-07864 Vancomycin Trough CPT-83694 Unna Boot CPT-DC Discontinue IV antibiotics 2 CPT-PICREM PICC Removal CPT-27727 CMP CPT-08978 CBC w/o Differential CPT-23785 C- reactive protein CPT-64846 Sedimentation Rate (ESR) 201 10/10/12 CPT-ca Continue IV antibiotics 2013 CPT-wpc Weekly PICC Line Care CPT-ca Continue IV antibiotics 2013 CPT-wpc Weekly PICC Line Care CPT-89563 CMP CPT-45695 CBC w/o Differential CPT-26254 C- reactive protein CPT-03757 Sedimentation Rate (ESR) 201 10/10/05 CPT-ca Continue IV antibiotics 2013 CPT-74194 CMP [id number] CBC with Differential 2013 CPT-11072 C- reactive protein CPT-47565 Sedimentation Rate (ESR) 201 10/10/01 CPT-tess New IV antibiotic CPT-48223 PICC Line Insertion CPT-DC Discontinue IV antibiotics 2 CPT-ca Continue IV antibiotics 2013 CPT-J3370 Vancomycin CPT-09892 BMP CPT-03820 CBC w/o Differential CPT-38934 C- reactive protein CPT-29681 Sedimentation Rate (ESR) 201 10/10/03 CPT-09937 Vancomycin Trough CPT-tess New IV antibiotic Vital [...]
== END 2025-05-21 23:59 | disposition home or self-care (01) ==
LOC: RAD 14:33
PROVIDERS: PCP Family Medicine; Visit Provider Nurse Practitioner
DX: M20.12 Hallux valgus (acquired), left foot (principal); M19.072 Primary osteoarthritis, left ankle and foot; M79.2 Neuralgia and neuritis, unspecified; M79.89 Other specified soft tissue disorders
CPT/HCPCS: 73630